=== PATIENT | male | born 1985 | race Caucasian/White ===

== ENCOUNTER 2018-01-13 22:45 | Emergency (ER) | payer MEDICAID, SELFPAY ==
[2018-01-13 22:47] VITALS: BP 153/99; PULSE 84; RESP 16; TEMP 37.4; O2SAT 97; BMI 34.2
--- NOTE | 2018-01-13 23:05 | ED.DCSUM_ITS ---
- ER Visit Summary Date of Service: 01/13/18 Chief Complaint: Numerous symptoms and wants checked out History of Present Illness: The patient is a 32 M with history of panic attacks. He states today he believes he had a panic attack however he has had numerous other symptoms and wanted checked out. He states he felt palpitations in his heart beating when he is lying down. Complain of intermittent pain which localizes over the left nipple and left upper abdomen and complains of a cracking sensation in his left shoulder. He states he became anxious. He has history of panic attacks. He has not seen a counselor. He states normally he can calm himself down. He wanted test done to reassure him of that nothing else was going on. Patient denies fever, chills night sweats. He denies any ocular, visual auditory symptoms. He denies rhinorrhea, earache sore throat. He presently denies any chest pain, palpitations or heart racing. He presently denies any shortness of breath or cough. He denies nausea, vomiting or diarrhea. He denies dysuria, frequency, urgency or hematuria. There is no history of trauma. Physical Examination: Vital signs are remarkable for slight elevation blood pressure 153/99. HEENT exam is marked for strabismus. Heart is regular without murmur, gallop or rub. S1 and S2 are normal. Lungs are clear to auscultation with good movement of air bilaterally. Abdomen soft nontender. Patient is alert and oriented ?3. Motor is 5 over 5. Sensory is intact. DTRs are symmetric with no clonus or Babinski sign. Cranial 2 through 12 are intact. Cerebellar testing is normal. Test Results: None were obtained, nor were any indicated Emergency Department Course and Treatment: She was reassured that his constellation of symptoms consistent with a panic attack. With regards to the shoulder pain most likely represents arthritis. Treatment Plan:. Stress reduction techniques Disposition: Discharged to home Impression: 1. Panic attack 2. Left shoulder pain secondary to degenerative arthritis This note was generated with [employer] dictation software. It may contain incorrect words, spelling, and punctuation that were not noted in review of the chart prior to signing ED Disposition - Plan for ED Patient: Disposition: Home or Assisted Living Chief Complaint: Anxiety Instructions: ED Panic Attack, Osteoarthritis: Coping with Pain Referrals: NOT,DEFINED [Primary Care Provider] - Leo,Jennifer, DO [NON-STAFF] - As Needed
[2018-01-13 23:11] VITALS: PULSE 79; RESP 18; O2SAT 98
[2018-01-13 23:18] VITALS: PULSE 71; RESP 16; O2SAT 97
--- NOTE | 2018-01-13 23:18 | ED.RN ---
DISCHARGE INSTRUCTIONS GIVEN TO AND REVIEWED WITH PATIENT, PATIENT DENIES QUESTIONS OR CONCERNS AND VOICES UNDERSTANDING OF DISCHARGE INSTRUCTIONS. PT AMBULATES OUT OF ROOM WITHOUT DIFFICULTY.
== END 2018-01-13 23:19 | disposition home or self-care (01) ==
LOC: ED 23:10
PROVIDERS: Emergency Provider Emergency Medicine
DX: F41.0 Panic disorder [episodic paroxysmal anxiety] (principal); M25.512 Pain in left shoulder; M19.012 Primary osteoarthritis, left shoulder; H50.9 Unspecified strabismus; E66.9 Obesity, unspecified
CPT/HCPCS: 99283

== ENCOUNTER → 2018-02-15 14:40 | Outpatient (CLI) | payer MEDICAID, SELFPAY ==
[2018-02-15 17:37] LABS: Thyroid Stim Hormone (TSH) 1.76 uIU/mL (0.358-3.74)
== END ==
PROVIDERS: Visit Provider Family Medicine
DX: E03.9 Hypothyroidism, unspecified (principal)
CPT/HCPCS: 36415; 84443

== ENCOUNTER 2018-04-03 11:21 | Emergency (ER) | payer MEDICAID, SELFPAY ==
[2018-04-03 11:22] VITALS: BP 137/74; PULSE 86; RESP 18; TEMP 36.6; O2SAT 99; BMI 29.5
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
== END 2018-04-03 13:08 | disposition home or self-care (01) ==
PROVIDERS: Emergency Provider Emergency Medicine
DX: S16.1XXA Strain of muscle, fascia and tendon at neck level, initial encounter (principal); V59.50XA Passenger in pick-up truck or van injured in collision with unspecified motor vehicles in traffic accident, initial encounter; Y93.89 Activity, other specified; Y92.9 Unspecified place or not applicable; F39 Unspecified mood [affective] disorder; F41.9 Anxiety disorder, unspecified; Z79.899 Other long term (current) drug therapy
CPT/HCPCS: 72040; 99282

== ENCOUNTER 2018-04-17 18:23 | Emergency (ER) | payer MEDICAID, SELFPAY ==
[2018-04-17 18:24] VITALS: BP 140/80; PULSE 97; RESP 24; TEMP 37.1; O2SAT 98; BMI 29.8
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
--- NOTE | 2018-04-17 20:19 | ED.VISSUMM ---
- ER Visit Summary Date of Service: 04/17/18 Chief Complaint: [Constipation] History of Present Illness: The patient is a 32 M [who presents to the emergency department with 1 week of constipation. He states that he has had hard tiny stools for the last 1 week. Mild nausea no abdominal pain sometimes when he closes his eyes he sees stars. He is very anxious and started a new medication Abilify a month ago but stopped taking it because he thought he was getting side effects. He takes gabapentin. He is otherwise healthy. 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.] Physical Examination: [] WN WD NAD Right pupil oval and dilated nonreactive left pupil constricted and nonreactive, left eye has lateral gaze palsy MMM NECK supple and nontender, no masses RRR no murmur rub or gallop, no peripheral edema, symmetric radial pulses CTAB no respiratory distress ABDOMEN is soft and nontender, normal bowel sounds, no distension, no rebound or guarding SKIN is warm and dry no rashes Alert and Oriented x3, CN II-XII in tact, no motor or sensory deficits, gait normal No lymphadenopathy Test Results: [] Emergency Department Course and Treatment: [These were obtained and show no acute process. Eye findings are chronic. Patient is quite anxious and this is been going on since December. I did offer him Vistaril. I think most of his symptoms are likely secondary to the anxiety. I will write him for MiraLAX and Colace. He will follow-up with a primary care physician as well as Jennifer Price] Treatment Plan: [] Disposition: [Discharge] Impression: [1. Anxiety 2. Constipation] This note was generated with [employer] dictation software. It may contain incorrect words, spelling, and punctuation that were not noted in review of the chart prior to signing ED Disposition - Plan for ED Patient: Chief Complaint: Constipation Referrals: Jennifer Bailey DO [Primary Care Provider] -
--- NOTE | 2018-04-17 20:22 | ED.DCSUM_ITS ---
- ER Visit Summary Date of Service: 04/17/18 Chief Complaint: [Constipation] History of Present Illness: The patient is a 32 M [who presents to the emergency department with 1 week of constipation. He states that he has had hard tiny stools for the last 1 week. Mild nausea no abdominal pain sometimes when he closes his eyes he sees stars. He is very anxious and started a new medication Abilify a month ago but stopped taking it because he thought he was getting side effects. He takes gabapentin. He is otherwise healthy. 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.] Physical Examination: [] WN WD NAD Right pupil oval and dilated nonreactive left pupil constricted and nonreactive , left eye has lateral gaze palsy MMM NECK supple and nontender, no masses RRR no murmur rub or gallop, no peripheral edema, symmetric radial pulses CTAB no respiratory distress ABDOMEN is soft and nontender, normal bowel sounds, no distension, no rebound or guarding SKIN is warm and dry no rashes Alert and Oriented x3, CN II-XII in tact, no motor or sensory deficits, gait normal No lymphadenopathy Test Results: [] Emergency Department Course and Treatment: [These were obtained and show no acute process. Eye findings are chronic. Patient is quite anxious and this is been going on since December. I did offer him Vistaril. I think most of his symptoms are likely secondary to the anxiety. I will write him for MiraLAX and Colace. He will follow-up with a primary care physician as well as Jennifer Price] Treatment Plan: [] Disposition: [Discharge] Impression: [1. Anxiety 2. Constipation] This note was generated with [employer] dictation software. It may contain incorrect words, spelling, and punctuation that were not noted in review of the chart prior to signing ED Disposition - Plan for ED Patient: Chief Complaint: Constipation Referrals: Jennifer Bailey DO [Primary Care Provider] -
--- NOTE | 2018-04-17 20:22 | ED.DEP ---
ED Disposition - Plan for ED Patient: Chief Complaint: Constipation Instructions: ED Constipation, Understanding Anxiety Disorders Prescriptions: Polyethylene Glycol 3350 [Miralax] 17 gm PO DAILY #14 packet Referrals: Jennifer Bailey DO [Primary Care Provider] - 3-5 Days
[2018-04-17 20:34] VITALS: BP 131/84; PULSE 80; RESP 18; O2SAT 99
== END 2018-04-17 20:37 | disposition home or self-care (01) ==
PROVIDERS: Emergency Provider Emergency Medicine
DX: F41.9 Anxiety disorder, unspecified (principal); K59.00 Constipation, unspecified; Z91.14 Patient's other noncompliance with medication regimen; Z79.899 Other long term (current) drug therapy; Z72.0 Tobacco use
CPT/HCPCS: 74018; 99282

== ENCOUNTER 2018-05-30 22:52 | Emergency (ER) | payer MEDICAID, SELFPAY ==
[2018-05-30 22:53] VITALS: BP 140/83; PULSE 76; RESP 16; TEMP 36.8; O2SAT 97; BMI 29.0
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
[2018-05-30 23:14] LABS: Absolute Lymphocyte Count 2.23 X10^3/ul (0.83-4.51); Absolute Neutrophil Count 4.4 X10^3/uL (2.0-7.7); Basophil# 0.03 X10^3/uL; Basophil% 0.4 % (0-1); Eosinophil# 0.22 X10^3/uL; Hematocrit 44.3 % (40-54); Hemoglobin 14.7 g/dl (13.0-16.5); Lymphocyte # 2.23 X10^3/ul (4.0); Lymphocyte % 30.6 % (19-41); Mean Corp Hgb Conc 33.2 g/gl (32-36); Mean Corpuscular Hgb 30.6 pg (27.0-32.0); Mean Corpuscular Volume 92.3 fL (80-94); Mean Platelet Vol. 11.7 fl (6.2-12.0); Monocyte# 0.41 X10^3/uL; Monocyte% 5.6 % (0-10); Neutrophil # 4.38 X10^3/uL (2.7-7.7); Neutrophil % 60.3 % (47-70); Platelet Count 177 K/mm3 (150-450); RBC Distribution Width SD 43.4 fl (35.1-43.9); White Blood Count 7.3 K/mm3 (4.4-11.0)
[2018-05-30 23:16] LABS: POSITIVE COUNT NO; POSITIVE DIFFERENTIAL NO; POSITIVE MORPHOLOGY NO
[2018-05-30 23:34] LABS: Anion Gap 7 (5-15); BUN 8 mg/dL (7-18); BUN/Creat Ratio 7.6 RATIO (10-20); Calcium,Total 8.6 mg/dL (8.5-10.1); Chloride 107 mmol/L (98-107); Creatinine, Serum 1.05 mg/dL (0.70-1.30); EST Glomerular Filtration Rate 86 mL/min (>60); Est Glom Filt Rate - Afr Amer 104 mL/min (>60); Glucose 88 mg/dL (74-106); Potassium 3.4 mmol/L (3.5-5.1); Sodium Level 142 mmol/L (136-145)
[2018-05-30 23:49] LABS: Amphetamine Urine VISTA NEGATIVE (<1000 ng/mL); Barbiturate Urine VISTA NEGATIVE (< 200 ng/mL); Benzodiazepine Urine VISTA NEGATIVE (< 200 ng/mL); Cocaine Urine VISTA NEGATIVE (< 300 ng/mL); Ecstacy Urine VISTA NEGATIVE (< 500 ng/mL); Methadone Urine VISTA NEGATIVE (< 300 ng/mL); PCP Urine VISTA NEGATIVE (< 25 ng/mL); THC Urine VISTA NEGATIVE (< 50 ng/mL); Vista UDS pH Range 7
[2018-05-31] VITALS (9 sets, daily range): BP systolic 110; BP diastolic 79; PULSE 65–89; RESP 15–18; O2SAT 99–100
--- NOTE | 2018-05-31 06:42 | NURSING ---
CALLED [facility] FOR TRANSPORT TO [facility]. ETA IS [phone]
== END 2018-05-31 08:29 ==
LOC: ED 23:17
PROVIDERS: Emergency Provider Emergency Medicine
DX: R45.851 Suicidal ideations (principal); F32.9 Major depressive disorder, single episode, unspecified; Z79.899 Other long term (current) drug therapy
CPT/HCPCS: 80048; 80307; 80320; 85025; 99285; G0480

== ENCOUNTER 2018-06-22 01:07 | Emergency (ER) | payer MEDICAID, SELFPAY ==
[2018-06-22 01:08] VITALS: BP 143/95; PULSE 102; RESP 18; TEMP 36.6; O2SAT 98; BMI 29.8
[2018-06-22] MEDS: LORazepam 1 MG Tablet PO (01:46)
--- NOTE | 2018-06-22 02:26 | ED.RN ---
DR ESPINOZA NOTIFIED PT CONCERNED ABOUT HIS NECK PAIN
[2018-06-22] MEDS: Naproxen 250 MG Tablet 500 MG PO (02:30)
--- NOTE | 2018-06-22 02:37 | ED.VISSUMM ---
- ER Visit Summary Date of Service: 06/22/18 Chief Complaint: [anxiety] History of Present Illness: The patient is a 33 M [the presents stating he felt like he was having a panic attack when he laid down to go to sleep. He also describes some neck strain. He denies any fall or injury. No weakness, paresthesias, or radiculopathy. He denies any chest pain or shortness of breath. He overall appears well and in no acute distress. He began to look up on the Internet medications that can interact with the medications that he was just started on Latuda and Lexapro and was concerned. He denies any overdose or ingestion. He denies any suicidal or homicidal thoughts or ideations. He complains only of anxiety. He has no other complaints.] Physical Examination: [General: The patient appears well and in no apparent distress. Patient is resting comfortably on cart. Skin: Warm, dry, no pallor noted. No rash. Head: Normocephalic, atraumatic Neck: Supple, nontender in the midline. Bilateral paraspinal tenderness on examination. Range of motion normal. Eye: PERRLA, EOMI ENT: Moist mucus membranes, pharynx within normal limits. Cardiovascular: Regular Rate and Rhythm, no gallups or rubs Respiratory: Patient is in no distress, no accessory muscle use, lungs are clear to auscultation, no wheezing, rales or rhonchi Musculoskeletal: normal ROM, no deformity, no tenderness, no swelling. 2+ radial and DP pulses symmetric. GI: No tenderness to palpation, no masses appreciated. No rebound, guarding, or rigidity noted. Neurological: A&O, normal strength and sensation. 5/5 bilateral upper extremity strength intact. Psychiatric: Cooperative] Test Results: [none] Emergency Department Course and Treatment: [Patient was given a dose of Ativan here with improvement. He was given Tylenol for neck pain as he states he is concerned the initially ordered Naprosyn will interfere with his medications. His neurological exam remains normal. I do not feel imaging is indicated. He denies any suicidal or homicidal thoughts or ideations. He does not appear to be having any symptoms of psychosis or hallucinations. He was advised to follow closely with his primary provider as well as the physician prescribing these new medications as he is concerned about their side effects and interactions. He was instructed to return with any new or worsening symptoms. Patient understands and is agreeable with this plan of care. Patient was discharged home in stable condition.] Treatment Plan: [See above] Disposition: [Discharged home, stable and improved] Impression: [Anxiety -improved, Acute cervical strain] This note was generated with [employer] software. It may contain incorrect words, spelling, and punctuation that were not noted in review of the chart prior to signing ED Disposition - Plan for ED Patient: Disposition: Home or Assisted Living Chief Complaint: Anxiety Instructions: ED Panic Attack, ED Sprain Strain Neck Referrals: Jennifer Bailey DO [Primary Care Provider] -
--- NOTE | 2018-06-22 02:47 | ED.VISSUMM ---
- ER Visit Summary Date of Service: 06/22/18 Chief Complaint: [] History of Present Illness: The patient is a 33 M [] Physical Examination: [] Test Results: [] Emergency Department Course and Treatment: [] Treatment Plan: [] Disposition: [] Impression: [] This note was generated with [employer] dictation software. It may contain incorrect words, spelling, and punctuation that were not noted in review of the chart prior to signing ED Disposition - Plan for ED Patient: Disposition: Home or Assisted Living Chief Complaint: Anxiety Instructions: ED Sprain Strain Neck, ED Panic Attack Prescriptions: Lorazepam [Ativan] 0.5 mg PO DAILY PRN #1 tab PRN Reason: Anxiety Referrals: Jennifer Bailey DO [Primary Care Provider] -
[2018-06-22 02:50] VITALS: RESP 18
== END 2018-06-22 02:55 | disposition home or self-care (01) ==
PROVIDERS: Emergency Provider Emergency Medicine
DX: F41.9 Anxiety disorder, unspecified (principal); S16.1XXA Strain of muscle, fascia and tendon at neck level, initial encounter; X58.XXXA Exposure to other specified factors, initial encounter; Y93.9 Activity, unspecified; Y92.9 Unspecified place or not applicable; Z79.899 Other long term (current) drug therapy
CPT/HCPCS: 99285

== ENCOUNTER 2018-06-26 15:46 | Emergency (ER) | payer MEDICAID, SELFPAY ==
[2018-06-26 15:48] VITALS: BP 149/102; PULSE 100; RESP 17; TEMP 37.2; O2SAT 99; BMI 29.5
--- NOTE | 2018-06-26 15:58 | ED.VISSUMM ---
- ER Visit Summary Date of Service: 06/26/18 Chief Complaint: Panic attack History of Present Illness: The patient is a 33 M 3 of anxiety, panic attacks and psychiatric illness. He was admitted to the psychiatric medicines at time. Within the last hour he started having a panic attacks. Feels very anxious. He denies any vomiting, diarrhea or fever. No chest pain. Physical Examination: Well appearing male. Vital signs are stable and afebrile. No acute distress. Pulse ox 9 9% on room air no signs of hypoxia. H EENT exam right eye has had lens implant surgery. His left eye is irregular. As is the pupil on the right. Extraocular motions of the left eye are regular. No facial droop. This is all chronic. Neck nontender. Lungs clear to auscultation bilaterally. Heart regular rate and rhythm no murmur rate about 100. Abdomen soft nontender. Normal bowel sounds no peritoneal signs. Moving all 4 extremities. Calves are nontender without edema or cords. 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 Normal dorsi plantarflexion. Neurologically he is awake and alert with no focal motor deficits other than the irregular extraocular movements of his left eye which are chronic. Test Results: None Emergency Department Course and Treatment: Patient has a history of anxiety and panic attacks. This is similar to his prior episodes. He will be treated with p.o. Ativan here reassessed and discharged home. Treatment Plan: Ativan as needed as needed #5 no refill. Follow-up with a counseling center. Disposition: Discharge Impression: Acute anxiety with a history of panic attacks This note was generated with [employer] dictation software. It may contain incorrect words, spelling, and punctuation that were not noted in review of the chart prior to signing ED Disposition - Plan for ED Patient: Chief Complaint: Anxiety Referrals: Jennifer Bailey DO [Primary Care Provider] -
--- NOTE | 2018-06-26 16:01 | ED.DCSUM_ITS ---
- ER Visit Summary Date of Service: 06/26/18 Chief Complaint: Panic attack History of Present Illness: The patient is a 33 M 3 of anxiety, panic attacks and psychiatric illness. He was admitted to the psychiatric medicines at time. Within the last hour he started having a panic attacks. Feels very anxious. He denies any vomiting, diarrhea or fever. No chest pain. Physical Examination: Well appearing male. Vital signs are stable and afebrile. No acute distress. Pulse ox 9 9% on room air no signs of hypoxia. H EENT exam right eye has had lens implant surgery. His left eye is irregular. As is the pupil on the right. Extraocular motions of the left eye are regular. No facial droop. This is all chronic. Neck nontender. Lungs clear to auscultation bilaterally. Heart regular rate and rhythm no murmur rate about 100. Abdomen soft nontender. Normal bowel sounds no peritoneal signs. Moving all 4 extremities. Calves are nontender without edema or cords. Normal metal mixer strength bilaterally. Normal dorsi plantarflexion. Neurologically he is awake and alert with no focal motor deficits other than the irregular extraocular movements of his left eye which are chronic. Test Results: None Emergency Department Course and Treatment: Patient has a history of anxiety and panic attacks. This is similar to his prior episodes. He will be treated with p.o. Ativan here reassessed and discharged home. Treatment Plan: Ativan as needed as needed #5 no refill. Follow-up with a counseling center. Disposition: Discharge Impression: Acute anxiety with a history of panic attacks This note was generated with [employer] dictation software. It may contain incorrect words, spelling, and punctuation that were not noted in review of the chart prior to signing ED Disposition - Plan for ED Patient: Chief Complaint: Anxiety Referrals: Jennifer Bailey DO [Primary Care Provider] -
--- NOTE | 2018-06-26 16:01 | ED.DEP ---
ED Disposition - Plan for ED Patient: Disposition: Home or Assisted Living Chief Complaint: Anxiety Instructions: ED Panic Attack Prescriptions: Lorazepam [Ativan] 1 mg PO DAILY PRN PRN #7 tab PRN Reason: panic attack Referrals: Jennifer Bailey DO [Primary Care Provider] - As Needed Counseling[facility]Center [GROUP OF PHYSICIANS] - As soon as possible Additional Instructions: Return if feeling worse. Follow-up with a counseling center. Ativan as needed for panic attacks or anxiety. Continue your current medications.
[2018-06-26] MEDS: LORazepam 1 MG Tablet PO ×2 (16:05→16:38)
[2018-06-26] MEDS: hydrOXYzine PAM 25 MG Capsule 50 MG PO (17:12)
[2018-06-26 18:08] VITALS: BP 125/89; PULSE 78; RESP 14; O2SAT 98
--- NOTE | 2018-06-26 18:18 | ED.RN ---
suicidal ideation brought to the attention of ed dr. argueta and patient have agreed to course of treatment. pt will follow-up with current astrobiologist and be d/c with home script for Ativan.
== END 2018-06-26 18:19 | disposition home or self-care (01) ==
PROVIDERS: Emergency Provider Emergency Medicine
DX: F41.0 Panic disorder [episodic paroxysmal anxiety] (principal); F41.9 Anxiety disorder, unspecified; Z79.899 Other long term (current) drug therapy
CPT/HCPCS: 99285

== ENCOUNTER 2018-07-04 23:48 | Emergency (ER) | payer MEDICAID, SELFPAY ==
[2018-07-04 23:49] VITALS: BP 153/100; PULSE 83; RESP 16; TEMP 36.6; O2SAT 97; BMI 29.8
--- NOTE | 2018-07-05 00:03 | ED.VISSUMM ---
- ER Visit Summary Date of Service: 07/05/18 Chief Complaint: Anxiety History of Present Illness: The patient is a 33 M increased anxiety prior to arrival. States was getting ready for bed having concerns of having a panic attack when it happened. Complains of dyspnea. No chest pains. No nausea or vomiting. States he took 1.5 tabs of Ativan and symptoms not improved. No cough. She is normally medications would help with symptoms. However this has not. No lip tingling or finger tingling. He is followed by counseling center. He was seen for same similar 8 days ago. He was told to follow-up with counseling center however has not. States currently feels I am going crazy.. Discussion about suicidal ideations, he states now he has thoughts. No specific plans. No homicidal ideations. Denies tobacco, alcohol, or illicit drug use. States he would like to see a counselor. Also complaint increased thirst and urine frequency. No history of diabetes. No dysuria or hematuria. Last meal was 2 hours ago. Physical Examination: General: Alert and oriented ?3, no acute distress HEENT: Normocephalic, atraumatic. Moist mucosa membranes Neck: supple, nontender. Cardiovascular: Regular rate and rhythm, no murmurs Respiratory: Normal breath sounds, symmetric, no distress Abdomen: Soft, nontender, nondistended Extremities: Nontender, no edema, pulses intact ?4 Neuro: no focal neurological deficits. Psych: Positive suicidal ideation. No homicidal ideation. Test Results: EKG sinus rate of [address] changes. Isolated T-wave inversion in aVL. Two-view chest x-ray negative. CBC chemistry liver enzymes normal. Urine no leukocytes however no other findings. Tox screen negative. Alcohol negative. Emergency Department Course and Treatment: Patient complains of dyspnea, however pulse ox normal, respiratory rate is normal. Lung sounds are normal. EKG chest x-ray normal. During discussed with anxiety, he did state he had suicidal thoughts with no plan with me. He went see a counselor. Laboratory workup obtained with toxin alcohol negative. Patient medically cleared. He was evaluated by crisis, states increasing suicidal thoughts and the plan of hanging. Patient had a pink slip filled out by crisis. He is excepted to [facility] in [place]. Treatment Plan: [] Disposition: Transfer to [facility] Impression: 1. Suicidal ideation with plan This note was generated with [employer] dictation software. It may contain incorrect words, spelling, and punctuation that were not noted in review of the chart prior to signing ED Disposition - Plan for ED Patient: Disposition: Psychiatric Hospital or Unit Chief Complaint: Anxiety Diagnosis: Suicidal ideation Referrals: Jennifer Bailey DO [Family Provider] -
[2018-07-05 00:26] LABS: Absolute Lymphocyte Count 1.81 X10^3/ul (0.83-4.51); Absolute Neutrophil Count 5.4 X10^3/uL (2.0-7.7); Basophil# 0.04 X10^3/uL; Basophil% 0.5 % (0-1); Eosinophil# 0.16 X10^3/uL; Hematocrit 42.9 % (40-54); Hemoglobin 14.8 g/dl (13.0-16.5); Lymphocyte # 1.81 X10^3/ul (4.0); Lymphocyte % 22.7 % (19-41); Mean Corp Hgb Conc 34.5 g/gl (32-36); Mean Corpuscular Hgb 31.4 pg (27.0-32.0); Mean Corpuscular Volume 91.1 fL (80-94); Mean Platelet Vol. 10.9 fl (6.2-12.0); Monocyte# 0.51 X10^3/uL; Monocyte% 6.4 % (0-10); Neutrophil # 5.43 X10^3/uL (2.7-7.7); Neutrophil % 68.1 % (47-70); POSITIVE COUNT NO; POSITIVE DIFFERENTIAL NO; POSITIVE MORPHOLOGY NO; Platelet Count 202 K/mm3 (150-450); RBC Distribution Width CV 12.9 % (11.6-14.6); RBC Distribution Width SD 42.6 fl (35.1-43.9); Red Blood Count 4.71 M/mm3 (4.6-6.2)
[2018-07-05 00:33] LABS: Bacteria 0 SEEN /hpf (None Seen); Mucous, Urine 0 SEEN /hpf (<or=2+); Red Blood Cells-Urine 0 SEEN /hpf (0-5); Squamous Epithelial Cells - UA 0 SEEN /hpf (0-5); White Blood Cells 0 SEEN /hpf (0-5)
[2018-07-05 00:39] LABS: Color, Urine Yellow (Yellow); Glucose, Dipstick Normal (Normal); Ketone-Dipstick Negative (Negative); Leukocyte Esterase-Dipstick 25 /ul (Negative); Nitrite-Dipstick Negative (Negative); Occult Blood-Urine Negative /ul (Negative); Protein-Dipstick Negative (Negative); Specific Gravity, Urine 1.015 (1.002-1.030); Urine Bilirubin Dipstick Negative (Negative); Urine Clarity Clear (Clear); Urine Urobilinogen Normal (Normal); Urine pH 6.5 (5.0 - 8.0)
[2018-07-05 00:41] LABS: ALB/GLOB Ratio 1.1 RATIO (0.9-2.4); AST(SGOT) 11 U/L (15-37); Alanine Aminotransfer ALT/SGPT 23 U/L (16-61); Albumin, Serum 3.9 g/dL (3.2-5.0); Alkaline Phosphatase 79 U/L (45-117); Anion Gap 9 (5-15); BUN 7 mg/dL (7-18); BUN/Creat Ratio 7.2 RATIO (10-20); Calcium,Total 8.7 mg/dL (8.5-10.1); Chloride 104 mmol/L (98-107); Creatinine, Serum 0.98 mg/dL (0.70-1.30); EST Glomerular Filtration Rate 94 mL/min (>60); Est Glom Filt Rate - Afr Amer 113 mL/min (>60); Estimated Creatinine Clearance 116.58 ml/min; Globulin 3.4 g/dL (2.2-4.2); Glucose 104 mg/dL (74-106); Potassium 3.4 mmol/L (3.5-5.1); Protein, Total 7.3 g/dL (6.4-8.2); Sodium Level 139 mmol/L (136-145)
[2018-07-05 00:47] LABS: Amphetamine Urine VISTA NEGATIVE (<1000 ng/mL); Barbiturate Urine VISTA NEGATIVE (< 200 ng/mL); Benzodiazepine Urine VISTA NEGATIVE (< 200 ng/mL); Cocaine Urine VISTA NEGATIVE (< 300 ng/mL); Ecstacy Urine VISTA NEGATIVE (< 500 ng/mL); Methadone Urine VISTA NEGATIVE (< 300 ng/mL); PCP Urine VISTA NEGATIVE (< 25 ng/mL); THC Urine VISTA NEGATIVE (< 50 ng/mL); Vista UDS pH Range 6
[2018-07-05] MEDS: hydrOXYzine PAM 25 MG Capsule 50 MG PO (02:08)
[2018-07-05 02:17] VITALS: RESP 16
[2018-07-05 03:53] VITALS: BP 121/74; PULSE 66; RESP 16; O2SAT 97
--- NOTE | 2018-07-05 04:01 | NURSING ---
[facility] HAS ACCEPTED [id number] REPORT
--- NOTE | 2018-07-05 04:06 | NURSING ---
CHUN TY CALLED AT 0404 AND WAS TOLD TO CALL BACK AFTER 7AM JAIME GARZA CALLED AT 0406 AND WAS ALSO TOLD TO CALL BACK AFTER 7AM
[2018-07-05 04:23] VITALS: BP 121/74; PULSE 66; RESP 16; TEMP 36.6; O2SAT 97
[2018-07-05 07:20] VITALS: BP 110/84; PULSE 57; RESP 16; O2SAT 100
[2018-07-05 09:00] VITALS: PULSE 60; RESP 16; O2SAT 100
== END 2018-07-05 09:30 ==
PROVIDERS: Emergency Provider Emergency Medicine
DX: R45.851 Suicidal ideations (principal); R35.0 Frequency of micturition; F41.9 Anxiety disorder, unspecified; F32.9 Major depressive disorder, single episode, unspecified; Z79.899 Other long term (current) drug therapy; M62.830 Muscle spasm of back
CPT/HCPCS: 71046; 80053; 80307; 80320; 81001; 85025; 93005; 97110; 99285; G0480

== ENCOUNTER 2018-07-24 15:00 | Outpatient (RCR) | payer MEDICAID, SELFPAY ==
--- NOTE | 2018-05-29 17:35 | HP.PTEVAL_ITS ---
Patient's Visit Information TATUM MATOS is a 33 year old M referred to Physical Therapy by ALEXIS Burgess with a diagnosis of MUSCLE SPASMS OF BACK. Date of Evaluation: 05/29/18 Physical Therapist: Kun Herbert PT, - Visit Plan Frequency: 2x /Week Duration: 4 Weeks Plan: POSTURAL EX/DLS PROGRAM,FLEXABLITY LE ,MODALITIES PRN - Subjective Subjective: This 33 y/o male presents to physical therapy with muscle spasms of back.Patient has had lumbar pain for about one year. Location symmtrical lumbar burning sensation,ache. Symptoms worse with sitting, lifting,walking intermmitant. Symptoms better with rest. Patient takes gabepetin. Denies parathesia/tingling. Coughing/sneezing -. Bowel/bladder good. Patient sleeps okay at night. SOCIAL: single. VOCATION: disablity - Pain Bilateral Back Pain Intensity (Out of 10): 6 Pain Intensity Range: 10 - Objective POSTURE: rounde shoulders head foward. GAIT: normal [place] reiprocal pattern. NEURO: burning back ,reflexes L3-4,L4-5,L5-S1 2/3. PALAPTION: tender paraspinals L-S. MMT: quads/hams 4/5,hip flexion 4-/5,ankle 4/5. FLEXABLITY: hams min tight. LUMBAR ROM: flexion WFL ,extension min loss ,side glides min loss - Special Tests L/S Slump test left side: Negative L/S Slump test right side: Negative L/S Left Straight Leg Raise: Negative L/S Right Straight Leg Raise: Negative Lumbar Standing: Flexion - Mechanical Response: No effect Lumbar Standing: Flexion - Symptoms During Testing: No effect Lumbar Standing: Flexion - Symptoms After Testing: No effect Lumbar Standing: Extension - Mechanical Response: No effect Lumbar Standing: Extension - Symptoms During Testing: Increases Lumbar Standing: Extension - Symptoms After Testing: No effect - Goals Goal 1:: Independant with HEP Goal Time Frame: 4-6 Weeks Goal 2:: Independant with posture sitting to manage back pain 70% Goal Time Frame: 4-6 Weeks Goal 3:: Decrease pain by 50% vor greater lumbar to improve function. Goal Time Frame: 4-6 Weeks Goal 4:: Patient be d/c to prophalxis Goal Time Frame: 4-6 Weeks Goal 5:: Patient be able to perform ADL'S and housework tasks and sitting with min limitations. Goal Time Frame: 4-6 Weeks - Rehabilitation Potential Physical Therapy Diagnosis: This patient has back spasm due to postural deficits and weakness of postural muscles and core ,thus benifit from skilled PT Rehabilitation Potential: Fair - Anticipated Interventions Patient/Client Instruction: Educate patient on: Condition, Plan of Care For the Purpose of:: To decrease pain, To improve muscle performance and motor function, To improve ability to perform ADL's, To increase tolerance to activity /condition/position, To improve ability of physical actions for home/community/ work/leisure, To decrease soft tissue restriction, To improve health and function, To improve ability to perform tasks related to life management Therapeutic Exercise to Include: Strength training, Body mechanics, Postural training, Flexibilty training, Dynamic Lumbar Stabilization For the Purpose of:: To decrease pain, To increase ROM, To improve muscle performance and motor function, To improve ability to perform ADL's, To increase tolerance to activity/condition/position, To improve ability of physical actions for home/community/work/leisure, To improve health of tissue, To decrease soft tissue restriction, To increase flexibility/ROM, To reduce risk of recurrence, To improve ability to perform tasks related to life management TENS: Yes IF ES: Yes Cryotherapy (ice pack, ice massage): Yes Thermo therapy (hot pack): Yes Ultrasound (thermal/non thermal): Yes For the Purpose of:: To decrease pain, To increase ROM, To improve health of tissue, To decrease soft tissue restriction Thank you for the opportunity to evaluate your patient. For Medicare and Medicare HMO plans, please review the plan of care and approve it. It will need to be FAXED BACK to us at [phone] for Medicare purposes. Please let me know if there are questions or concerns regarding this plan of care. Physician Signature: Date:
--- NOTE | 2018-11-27 10:22 | HP.PT.NRP ---
HP - Discharge Summary (1) - Patient Information TATUM MATOS was seen in my office for initial evaluation on 05/29/18. The following Plan of Care was established for this patient: Initial Frequency: 2x /Week Initial Duration: 4 Weeks - Anticipated Interventions Patient/Client Instruction: Educate patient on: Condition, Plan of Care For the Purpose of:: To decrease pain, To improve muscle performance and motor function, To improve ability to perform ADL's, To increase tolerance to activity/condition/position, To improve ability of physical actions for home/community/work/leisure, To decrease soft tissue restriction, To improve health and function, To improve ability to perform tasks related to life management Therapeutic Exercise to Include: Strength training, Body mechanics, Postural training, Flexibilty training, Dynamic Lumbar Stabilization For the Purpose of:: To decrease pain, To increase ROM, To improve muscle performance and motor function, To improve ability to perform ADL's, To increase tolerance to activity/condition/position, To improve ability of physical actions for home/community/work/leisure, To improve health of tissue, To decrease soft tissue restriction, To increase flexibility/ROM, To reduce risk of recurrence, To improve ability to perform tasks related to life management TENS: Yes IF ES: Yes Cryotherapy (ice pack, ice massage): Yes Thermo therapy (hot pack): Yes Ultrasound (thermal/non thermal): Yes For the Purpose of:: To decrease pain, To increase ROM, To improve health of tissue, To decrease soft tissue restriction This patient was last seen in our office 05/29/19. Pertinent comments regarding their Physical therapy will appear below: Patient seen for PT for lumbar pain . Patient treatment focused on DLS ,postural ex's,strengthening.Patient did well with progression and working out on own,thus is d/c At this point I will be discontinuing this patient from physical therapy. I would be happy to see this patient again in the future if found appropriate by the physician. Thank you! Kun Herbert, PT, Cert MDT, OCS
== END 2018-07-24 19:00 | disposition home or self-care (01) ==
LOC: PT 15:00
PROVIDERS: Visit Provider Physician Assistant Surgical
DX: M62.830 Muscle spasm of back (principal)
CPT/HCPCS: 97110; 97162

== ENCOUNTER 2018-08-11 18:06 | Emergency (ER) | payer MEDICAID, SELFPAY ==
[2018-08-11 18:07] VITALS: BP 124/92; PULSE 103; RESP 20; TEMP 36.7; O2SAT 97; BMI 30.7
--- NOTE | 2018-08-11 18:30 | ED.DCSUM_ITS ---
- ER Visit Summary Date of Service: 08/11/18 Chief Complaint: Anxiety History of Present Illness: The patient is a 33 M who presents with anxiety that became worse today. Patient states that has been getting gradually worse over the past 2 days. Patient states she normally takes lorazepam for his anxiety. Patient states he has not taken his lorazepam for the past 2 days. Patient states he took it daily for 3 days prior to that. Patient is concerned about withdrawal from the lorazepam. Patient is also on Vistaril for his anxiety. Patient states he took 2 doses of Vistaril today. Patient denies any chest pain or shortness of breath. Patient admits to a mild headache. Patient admits to fleeting suicidal thoughts but denies any suicidal plan. Patient denies any visual or auditory hallucinations. Physical Examination: Vital signs are stable. Patient is afebrile. Patient is in no acute distress. Cranial nerves II through XII are intact. There are no focal motor or sensory deficits noted. Oral mucosa is pink and moist. Neck is supple. Trachea is midline. There is no JVD or lymphadenopathy noted. Heart was regular rate and rhythm. Lungs are clear and equal bilaterally. Abdomen is soft. Bowel sounds are normal. There is no tenderness. The remaining physical exam is within normal limits. Test Results: CBC, basic metabolic profile, urinalysis, and serum alcohol level were obtained were all within normal limits. Emergency Department Course and Treatment: Patient felt better on reevaluation. Patient was instructed to follow-up with the counseling center in 2-3 days. Patient was instructed to continue his medications as previously prescribed. Patient understands and is agreeable with the plan. All questions were answered. Disposition: Discharged home Impression: Anxiety This note was generated with [employer] dictation software. It may contain incorrect words, spelling, and punctuation that were not noted in review of the chart prior to signing ED Disposition - Plan for ED Patient: Disposition: Home or Assisted Living Chief Complaint: Anxiety Diagnosis: Acute anxiety Instructions: ED Panic Attack Referrals: Care Physician,No Primary [NON-STAFF] -
[2018-08-11 18:39] LABS: Absolute Lymphocyte Count 1.34 X10^3/ul (0.83-4.51); Absolute Neutrophil Count 7.4 X10^3/uL (2.0-7.7); Basophil# 0.04 X10^3/uL; Basophil% 0.4 % (0-1); Eosinophil# 0.26 X10^3/uL; Eosinophils% 2.7 % (0-5); Hematocrit 44.8 % (40-54); Lymphocyte # 1.34 X10^3/ul (4.0); Lymphocyte % 13.9 % (19-41); Mean Corp Hgb Conc 33.5 g/gl (32-36); Mean Corpuscular Hgb 30.5 pg (27.0-32.0); Mean Corpuscular Volume 91.2 fL (80-94); Mean Platelet Vol. 10.5 fl (6.2-12.0); Monocyte# 0.58 X10^3/uL; Neutrophil # 7.38 X10^3/uL (2.7-7.7); Neutrophil % 76.9 % (47-70); POSITIVE COUNT NO; POSITIVE DIFFERENTIAL NO; POSITIVE MORPHOLOGY NO; Platelet Count 181 K/mm3 (150-450); RBC Distribution Width CV 12.8 % (11.6-14.6); RBC Distribution Width SD 42.8 fl (35.1-43.9); Red Blood Count 4.91 M/mm3 (4.6-6.2); White Blood Count 9.6 K/mm3 (4.4-11.0)
[2018-08-11 18:49] LABS: Mucous, Urine 0 SEEN /hpf (<or=2+); White Blood Cells 0 SEEN /hpf (0-5)
[2018-08-11 18:50] LABS: Anion Gap 5 (5-15); BUN 9 mg/dL (7-18); BUN/Creat Ratio 9.2 RATIO (10-20); Calcium,Total 8.5 mg/dL (8.5-10.1); Chloride 104 mmol/L (98-107); Creatinine, Serum 0.98 mg/dL (0.70-1.30); EST Glomerular Filtration Rate 93 mL/min (>60); Est Glom Filt Rate - Afr Amer 112 mL/min (>60); Estimated Creatinine Clearance 116.58 ml/min; Glucose 90 mg/dL (74-106); Potassium 4.1 mmol/L (3.5-5.1); Sodium Level 138 mmol/L (136-145)
[2018-08-11 18:52] LABS: Color, Urine Yellow (Yellow); Glucose, Dipstick Normal (Normal); Ketone-Dipstick Negative (Negative); Leukocyte Esterase-Dipstick Negative /ul (Negative); Nitrite-Dipstick Negative (Negative); Occult Blood-Urine Negative /ul (Negative); Protein-Dipstick Negative (Negative); Urine Bilirubin Dipstick Negative (Negative); Urine Clarity Clear (Clear); Urine Urobilinogen Normal (Normal)
[2018-08-11 19:02] LABS: Bacteria 1+ /hpf (None Seen); Red Blood Cells-Urine 0-5 SEEN /hpf (0-5); Squamous Epithelial Cells - UA 0-5 SEEN /hpf (0-5)
[2018-08-11 20:31] VITALS: PULSE 78; RESP 14; O2SAT 98
== END 2018-08-11 20:33 | disposition home or self-care (01) ==
PROVIDERS: Emergency Provider Emergency Medicine; Family Provider Internal Medicine; PCP Internal Medicine
DX: F41.9 Anxiety disorder, unspecified (principal); R51 Headache; R45.851 Suicidal ideations; Z79.899 Other long term (current) drug therapy; Z72.0 Tobacco use
CPT/HCPCS: 80048; 80320; 81001; 85025; 99282; G0480

== ENCOUNTER 2018-08-17 22:50 | Emergency (ER) | payer MEDICAID, SELFPAY ==
[2018-08-17 22:51] VITALS: BP 141/103; PULSE 83; RESP 19; TEMP 37.9; O2SAT 99; BMI 31.8
--- NOTE | 2018-08-17 22:55 | EKG12_ITS ---
Test Reason : [facility] Blood Pressure : / mmHG Vent. Rate : 083 BPM Atrial Rate : 083 BPM P-R Int : 144 ms QRS Dur : 074 ms QT Int : 356 ms P-R-T Axes : 067 039 063 degrees QTc Int : 418 ms Normal sinus rhythm with sinus arrhythmia Normal ECG Confirmed by JASSON RODAS, LACHELLE ([id number]), deputy editor in chief MADY VALENZUELA ([id number]) on 08/19/2018 3:51:36 PM Referred By: CLARITZA Confirmed By:LACHELLE SPAULDING MD
--- NOTE | 2018-08-17 23:03 | ED.DCSUM_ITS ---
- ER Visit Summary Date of Service: 08/17/18 Chief Complaint: [] Palpitations History of Present Illness: The patient is a 33 M stated he developed some palpitations an hour ago at home at rest. He felt a few extra beats. He was not sure if he was having an anxiety attack or actually had an abnormal rhythm. He called the paramedics. Denies any other symptoms. He is on Ativan, Vistaril, Zoloft. He was seen a week ago for anxiety with normal lab work. He stated he felt 3 extra beats. It has stopped Physical Examination: [] Vital signs reviewed General: Well-nourished well-developed Head: Normocephalic atraumatic Eyes: Pupils equal round and reactive to light extraocular movements intact ENT: TMs clear no hemotympanum no trauma Neck: Nontender full range of motion Cardiovascular: Regular rate rhythm no murmurs normal S1-S2 Respiratory: No distress clear to auscultation bilaterally chest nontender Abdomen: Soft nontender nondistended normal bowel sounds no masses Back: Nontender no CVA tenderness Extremities: Nontender active range of motion ?4 extremities no trauma Skin: Normal color no trauma Neuro alert oriented cranial nerves II through XII intact normal strength sensation reflexes Test Results: [] Emergency Department Course and Treatment: [] She is resting comfortably. He denies any signs or symptoms of illness or sickness or infection. His temperatures just on the high side of normal. I do not feel he has sepsis or infection. He had a EKG that showed sinus arrhythmia. Rate of 83. No PVCs. No ischemia. He was watched on the monitor. He had no abnormal rhythm. He will be discharged to follow-up. He likely had a few PVCs Treatment Plan: [] Disposition: [] Impression: [] Palpitations This note was generated with [employer] dictation software. It may contain incorrect words, spelling, and punctuation that were not noted in review of the chart prior to signing ED Disposition - Plan for ED Patient: Chief Complaint: Palpitations Referrals: Jm Ty MD [Primary Care Provider] -
--- NOTE | 2018-08-17 23:03 | ED.DEP ---
ED Disposition - Plan for ED Patient: Disposition: Home or Assisted Living Chief Complaint: Palpitations Instructions: ED Palpitations Referrals: Jm Ty MD [Primary Care Provider] -
[2018-08-17 23:43] VITALS: BP 134/83; PULSE 86; RESP 17; TEMP 37.5; O2SAT 97
== END 2018-08-17 23:44 | disposition home or self-care (01) ==
LOC: ED 23:08
PROVIDERS: Emergency Provider Emergency Medicine; Family Provider Internal Medicine; PCP Internal Medicine
DX: R00.2 Palpitations (principal); F41.9 Anxiety disorder, unspecified; Z79.899 Other long term (current) drug therapy; Z72.0 Tobacco use
CPT/HCPCS: 93005; 99284

== ENCOUNTER 2018-09-07 23:02 | Emergency (ER) | payer MEDICAID, SELFPAY ==
[2018-09-07 23:03] VITALS: BP 134/84; PULSE 87; RESP 16; TEMP 37.1; O2SAT 98; BMI 31.1
--- NOTE | 2018-09-07 23:04 | CT_ITS ---
HISTORY: 2ANXIETY AND CONFUSION TECHNIQUE: Multiple axial images were obtained of the brain without intravenous contrast. A radiation dose optimization technique was used for this scan. IV Contrast dosage and agent: None. COMPARISON: None FINDINGS: The ventricles are normal in size. Sigala-white matter differentiation appears normal. No intracranial mass, hemorrhage, or acute disease. Posterior fossa structures show no abnormality. No suspicious extra-axial fluid collection. Bilateral ethmoid, frontal, and left maxillary sinusitis. CT/Brain/Head without Contrast IMPRESSION: 1. Normal CT brain without contrast. 2. Paranasal sinusitis. Individualized dose optimization techniques were used for this CT. at 0045 Reported and signed by: Cody Osei MD Electronically Signed: Cody Osei, at 0:43 EDT Tel , Service support ,
--- NOTE | 2018-09-07 23:07 | ED.VISSUMM ---
- ER Visit Summary Date of Service: 09/07/18 Chief Complaint: Anxiety History of Present Illness: The patient is a 33 M presents to the emergency department with an acute anxiety reaction. The patient has had multiple visits for the same. He states that he became very lightheaded and had a headache. He states he was concerned he was having a stroke. He denies any weakness, numbness, or paresthesias. Had no trouble with his speech or his vision. He states he just felt very anxious and thought something else was going on. He states he was confused. He states this felt worse than his normal anxiety. He denies any fevers or chills. He denies any visual change. He denies any recent trauma. He did take a 1 mg Ativan with some improvement. Physical Examination: Vital signs reviewed General: Well-nourished, well-developed Head: Normocephalic, atraumatic Eyes: Pupils equal and reactive, extraocular muscles intact Neck, supple, no lymphadenopathy Heart: Regular rate and rhythm Respiratory: No distress, clear bilaterally Abdomen: Soft, nontender, nondistended, no peritoneal signs Back: Nontender Extremities: Nontender, no edema, no cords Skin: Normal color no rash Neuro: Alert and oriented, no focal or lateralizing deficits Test Results: [] Emergency Department Course and Treatment: The patient presents with what seems to be an acute anxiety reaction. However, he was having confusion and change in mental status. On arrival, he is basically at baseline. The patient underwent head CT given his multiple recurrent visits for similar symptoms. This was unremarkable. There is no tumor mass or other dangerous process. He is not meningitic. Is not encephalopathic. He was given oral Ativan and observed for 2 hours. He had marked improvement of his symptoms. At this time, I do feel that this is more secondary to his underlying anxiety. I do feel that he is safe for outpatient therapy. He is not suicidal or homicidal. He has no hallucinations. He will be discharged home. Treatment Plan: [] Disposition: Discharge Impression: Acute anxiety reaction This note was generated with [employer] dictation software. It may contain incorrect words, spelling, and punctuation that were not noted in review of the chart prior to signing ED Disposition - Plan for ED Patient: Chief Complaint: Anxiety Instructions: ED Panic Attack Referrals: Jm Ty MD [Primary Care Provider] -
[2018-09-07] MEDS: LORazepam 1 MG Tablet PO (23:47)
[2018-09-08 01:09] VITALS: BP 129/78; PULSE 67; RESP 18; O2SAT 99
== END 2018-09-08 01:10 | disposition home or self-care (01) ==
LOC: ED 23:46
PROVIDERS: Emergency Provider Emergency Medicine; Family Provider Internal Medicine; PCP Internal Medicine
DX: F41.1 Generalized anxiety disorder (principal); R51 Headache; Z79.899 Other long term (current) drug therapy; Z72.0 Tobacco use
CPT/HCPCS: 70450; 99284

== ENCOUNTER 2018-09-13 02:58 | Emergency (ER) | payer MEDICAID, SELFPAY ==
[2018-09-13] VITALS (17 sets, daily range): BP systolic 120–140; BP diastolic 68–92; PULSE 61–82; RESP 13–18; TEMP 37.3; O2SAT 97–100; BMI 32.1
--- NOTE | 2018-09-13 03:14 | ED.VISSUMM ---
- ER Visit Summary Date of Service: 09/13/18 Chief Complaint: Depression anxiety and panic History of Present Illness: The patient is a 33 M who presents with depression and thoughts of hurting himself. He says this is stemming from the fact that his doctor is not giving him any more Ativan. He has a history of panic disorder and says Ativan is the only thing that helps. He does not have a plan but he tells me he is thinking quite dark thoughts and does not feel safe by himself. Physical Examination: On exam he is quite pleasant, quite reasonable. Heart is regular lungs are clear abdomen is soft and nontender. He has no rash she has a normal physical exam. Emergency Department Course and Treatment: Patient will be medically cleared. I will get crisis to talk to him after that. The plan will be to transfer him to psychiatric facility Impression: Depression with suicidal ideation This note was generated with [employer] dictation software. It may contain incorrect words, spelling, and punctuation that were not noted in review of the chart prior to signing ED Disposition - Plan for ED Patient: Chief Complaint: Suicidal Referrals: Jm Ty MD [Primary Care Provider] -
[2018-09-13 03:51] LABS: Absolute Neutrophil Count 4.1 X10^3/uL (2.0-7.7); Basophil# 0.03 X10^3/uL; Basophil% 0.5 % (0-1); Eosinophil# 0.18 X10^3/uL; Eosinophils% 2.8 % (0-5); Hematocrit 43.9 % (40-54); Hemoglobin 15.1 g/dl (13.0-16.5); Lymphocyte % 29.1 % (19-41); Mean Corp Hgb Conc 34.4 g/gl (32-36); Mean Corpuscular Hgb 30.9 pg (27.0-32.0); Mean Platelet Vol. 10.3 fl (6.2-12.0); Monocyte# 0.33 X10^3/uL; Neutrophil # 4.09 X10^3/uL (2.7-7.7); Neutrophil % 62.4 % (47-70); Platelet Count 201 K/mm3 (150-450); RBC Distribution Width CV 12.4 % (11.6-14.6); RBC Distribution Width SD 40.9 fl (35.1-43.9); Red Blood Count 4.88 M/mm3 (4.6-6.2); White Blood Count 6.5 K/mm3 (4.4-11.0)
[2018-09-13 03:52] LABS: POSITIVE COUNT NO; POSITIVE DIFFERENTIAL NO; POSITIVE MORPHOLOGY NO
[2018-09-13 04:00] LABS: Amphetamine Urine VISTA NEGATIVE (<1000 ng/mL); Barbiturate Urine VISTA NEGATIVE (< 200 ng/mL); Benzodiazepine Urine VISTA NEGATIVE (< 200 ng/mL); Cocaine Urine VISTA NEGATIVE (< 300 ng/mL); Ecstacy Urine VISTA NEGATIVE (< 500 ng/mL); Methadone Urine VISTA NEGATIVE (< 300 ng/mL); PCP Urine VISTA NEGATIVE (< 25 ng/mL); THC Urine VISTA NEGATIVE (< 50 ng/mL); Vista UDS pH Range 6
[2018-09-13 04:02] LABS: Anion Gap 7 (5-15); BUN 6 mg/dL (7-18); Calcium,Total 8.4 mg/dL (8.5-10.1); Chloride 104 mmol/L (98-107); Creatinine, Serum 0.99 mg/dL (0.70-1.30); EST Glomerular Filtration Rate 92 mL/min (>60); Est Glom Filt Rate - Afr Amer 111 mL/min (>60); Glucose 87 mg/dL (74-106); Potassium 3.5 mmol/L (3.5-5.1); Sodium Level 139 mmol/L (136-145)
[2018-09-13 04:08] LABS: Alcohol, Blood (Medical)-Serum < 3.0 mg/dL
[2018-09-13] MEDS: hydrOXYzine PAM 25 MG Capsule 50 MG PO ×3 (04:32→21:20)
[2018-09-13] MEDS: Sertraline 100 MG Tablet PO (12:07)
--- NOTE | 2018-09-13 12:34 | ED.RN ---
[facility] CALLED AND THEY ARE WORKING ON PLACEMENT FOR THE PATIENT. BEDS ARE TIGHT EVERYWHERE
--- NOTE | 2018-09-13 19:07 | EKG12_ITS ---
Test Reason : [facility] [place] Blood Pressure : / mmHG Vent. Rate : 080 BPM Atrial Rate : 080 BPM P-R Int : 140 ms QRS Dur : 080 ms QT Int : 364 ms P-R-T Axes : 076 059 074 degrees QTc Int : 419 ms Normal sinus rhythm with sinus arrhythmia Normal ECG Confirmed by JASSON RODAS, LACHELLE ([id number]), field map editor MADY VALENZUELA ([id number]) on 09/17/2018 3:53:42 PM Referred By: DR NORWOOD Confirmed By:LACHELLE SPAULDING MD
[2018-09-13 19:44] LABS: AST(SGOT) 15 U/L (15-37); Alanine Aminotransfer ALT/SGPT 25 U/L (16-61); Albumin, Serum 3.9 g/dL (3.2-5.0); Alkaline Phosphatase 61 U/L (45-117); Bilirubin, Direct 0.15 mg/dL (0.00-0.30); Globulin 3.3 g/dL (2.2-4.2); Protein, Total 7.2 g/dL (6.4-8.2)
--- NOTE | 2018-09-13 20:53 | ED.RN ---
UPDATE FROM [facility], INFORMATION FAXED TO [facility]
[2018-09-13] MEDS: Acetaminophen 500 MG Tablet 1000 MG PO (21:19)
--- NOTE | 2018-09-13 21:22 | ED.RN ---
scanner not working on portable computer workstation. Work ticket placed.
[2018-09-14] VITALS (8 sets, daily range): BP systolic 114–116; BP diastolic 77–80; PULSE 73–77; RESP 16–18; TEMP 36.6; O2SAT 96–98
--- NOTE | 2018-09-14 00:38 | ED.RN ---
[facility] REQUESTED THE STAFF ASK THE PT IF HE STILL WANTS TO BE ADMITTED BECAUSE THE PHYSICIAN AT [facility] WILL NOT INCREASE HIS DOSE. THIS NURSE SPOKE TO THE PT ABOUT THE ATIVAN. THE PT STATES THAT HE WAS TOLD HE WILL NO LONGER BE RECEIVING ATIVAN. PT CONCERNED ABOUT SUICIDAL THOUGHTS D/T NOT RECEIVING ATIVAN
--- NOTE | 2018-09-14 01:30 | NURSING ---
CALLED [facility] AND WILL BE PICKING UP PATIENT AROUND 8AM FOR TRANSPORT SINCE PATIENT CANNOT ARRIVE AT FACILITY UNTIL AFTER 830AM
== END 2018-09-14 08:36 ==
LOC: ED 03:47
PROVIDERS: Emergency Medicine; Emergency Provider Emergency Medicine; Family Provider Internal Medicine; PCP Internal Medicine
DX: F32.9 Major depressive disorder, single episode, unspecified (principal); R45.851 Suicidal ideations; F41.0 Panic disorder [episodic paroxysmal anxiety]; Z79.899 Other long term (current) drug therapy
CPT/HCPCS: 80048; 80076; 80307; 80320; 85025; 93005; 99285; G0480

== ENCOUNTER 2018-09-24 21:50 | Emergency (ER) | payer MEDICAID, SELFPAY ==
[2018-09-24 21:51] VITALS: BP 141/88; PULSE 103; RESP 16; TEMP 37; O2SAT 98; BMI 31.4
[2018-09-25] MEDS: LORazepam 1 MG Tablet PO (00:07)
[2018-09-25 00:09] VITALS: BP 144/93; PULSE 92; RESP 17; O2SAT 96
--- NOTE | 2018-09-25 00:26 | ED.VISSUMM ---
- ER Visit Summary Date of Service: 09/25/18 Chief Complaint: Sore throat and anxiety History of Present Illness: The patient is a 33 M who states that today he has had multiple panic attacks. He states he is on Zoloft and Vistaril. He states he used to be on benzodiazepines but his current psychiatrist took him off of those. He states he was to find a new psychiatrist. He states that he has some discomfort in his throat like somebody is choking him. He feels that his tongue is swelling. He states he is very worried he is having a throat and mouth issue. Patient has been able to eat and drink. There has been no fevers. No recent URI. Physical Examination: Afebrile vital signs are stable Gen: Well-nourished well-developed Head: Normocephalic atraumatic Eyes: Perrl EOMI ENT: TMs clear no rhinorrhea moist mucous membranes no drooling. There is no stridor. Neck: Supple no lymphadenopathy no JVD nontender CVS: Regular rate rhythm no murmurs normal S1-S2 Respiratory: No distress clear to auscultation bilaterally chest nontender Abdomen: Soft nontender nondistended normal bowel sounds no masses Back: Nontender Extremity: Nontender no edema Skin: Normal color no rash Neuro: alert orientated ?3 CN II-XII intact normal strength sensation reflexes gait cerebellar Psych: Is extremely anxious Emergency Department Course and Treatment: Patient received Ativan orally. States he is feeling better but still is worried about his throat. I do not see any progressive swelling of the uvula of the tongue. He is able to lay back. There is no stridor or drooling. Impression: 1. Panic attack 2. Generalized anxiety disorder This note was generated with [employer] software. It may contain incorrect words, spelling, and punctuation that were not noted in review of the chart prior to signing ED Disposition - Plan for ED Patient: Disposition: Home or Assisted Living Chief Complaint: Anxiety Instructions: ED Panic Attack Referrals: Jm Ty MD [Primary Care Provider] - 1 Week
[2018-09-25 01:04] VITALS: BP 134/89; PULSE 95; RESP 16; O2SAT 97
== END 2018-09-25 01:05 | disposition home or self-care (01) ==
PROVIDERS: Emergency Provider Emergency Medicine; Family Provider Internal Medicine; PCP Internal Medicine
DX: F41.0 Panic disorder [episodic paroxysmal anxiety] (principal); F41.1 Generalized anxiety disorder; Z79.899 Other long term (current) drug therapy
CPT/HCPCS: 99284

== ENCOUNTER 2018-10-05 23:22 | Emergency (ER) | payer MEDICAID, SELFPAY ==
[2018-10-05 23:24] VITALS: BP 141/85; PULSE 100; RESP 18; TEMP 36.8; O2SAT 98; BMI 32.5
[2018-10-05] MEDS: LORazepam 2 MG/ML Syringe 1 MG IM (23:45)
--- NOTE | 2018-10-06 00:28 | ED.VIS.GEN ---
History of Present Illness Chief Complaint: Anxiety Informant: Patient Onset: Hours - 1 Context: Sudden Onset - while playing video games Timing: Continuous Quality: anxious, shaky, heart racing Location: all over Current Severity: Severe Maximum Severity: Severe Worsened by: nothing Relieved by: nothing despite trying hydroxyzine Narrative: History of anxiety/panic attacks. This feels similar but worse than usual. Usually resolve with Ativan. He states his doctor had him on as needed Ativan and he was needing a lot of it in addition to his daily Zoloft to try to prevent these. His doctor subsequently decreased his Ativan, and the patient is aware of his doctors attempts to keep him from getting addicted to benzodiazepines, and to try to keep him from needing Ativan. The patient is insightful that he uses it quite a bit and does not want to get addicted, however he feels bad tonight and is asking if he can have a dose to try to help him feel better and also wants to make sure he is not having anything else dangerous. Prior similar symptoms: Yes - Past Medical History (1) Generalized anxiety disorder with panic attacks Status: Chronic (2) Segmental and somatic dysfunction of cervical region Status: Chronic (3) Segmental and somatic dysfunction of lumbar region Status: Chronic (4) Segmental and somatic dysfunction of thoracic region Status: Chronic Past Medical History - Allergies and Home Meds Allergies/Adverse Reactions: Allergies No Known Allergies Allergy (Verified 10/05/18 23:22) Primary Care Physician: [facility]ing[facility] [GROUP OF PHYSICIANS] - 2 Days Jm Ty MD [Primary Care Provider] - Smoking Status: Never smoker Drugs: None Review of Systems General: Denies: Chills, Fever, Sweats Eyes: Denies: Visual changes - bilaterally, Diplopia ENT: Denies: Sore throat Cardiovascular: Reports: Heart racing. Denies: Chest pain Respiratory: Denies: Dyspnea, Cough, Dyspnea on exertion Gastrointestinal: Denies: Abdominal pain, Nausea, Vomiting, Diarrhea, Melena, Hematochezia Genitourinary: Denies: Dysuria, Hematuria, Frequency Musculoskeletal: Denies: Swelling, Extremity Pain Skin: Denies: Rash Neurological: Reports: Weakness - All over, mild - my strength is not quite normal, Parasthesia - Both hands. Denies: Headache, Numbness Psych: Reports: Anxiety. Denies: Suicidal thoughts, Suicidal ideations Endocrine: Denies: Heat intolerance, Cold intolerance Allergy: Denies: Swelling of the mouth, Swelling of the tongue Physical Exam Vital Signs/Narrative: Vital Signs Temp Pulse Resp BP Pulse Ox 10/05/18 23:24 98.2 F 100 18 141/85 H 98 Inital Vital Signs reviewed: Yes General: Well nourished, Well developed Head: Normocephalic, Atraumatic Eyes: Perrl, EOMI - Disconjugate gaze, chronic ENT: Moist mucous membranes, No rhinorrhea Neck: Supple, Nontender, No lymphadenopathy, No JVD Cardiovascular: Regular rate, Regular rhythm, No murmurs. Negative for: Tachycardia Respiratory: No distress, CTA bilaterally, Chest nontender Abdomen: Soft, Nontender, Nondistended, Normal bowel sounds Back: Nontender, Normal Inspection Extremities: Nontender, No edema Skin: Normal color, No rash Neurological: Alert, Oriented x3, Cranial nerves II-XII grossly intact, Normal Strength, Normal Sensation Psychological: - - Anxious Diagnostic/Tx/Re-eval - Medical Decision Making Patient was given a dose of Ativan 1 mg IM, he feels much better. His heart rhythm is normal. I reassure him, I do not think there is anything dangerous going on. I advised him to follow-up with his doctor, he may discuss possibly changing his long-term daily preventative medication to something different if he is requiring Ativan that much. He is in agreement. ED Disposition - Plan for ED Patient: Disposition: Home or Assisted Living Chief Complaint: Anxiety Diagnosis: Anxiety attack Instructions: ED Panic Attack Referrals: Jm Ty MD [Primary Care Provider] - [facility] [GROUP OF PHYSICIANS] - 2 Days
[2018-10-06 00:49] VITALS: BP 131/89; PULSE 76; RESP 15; O2SAT 98
--- NOTE | 2018-10-06 00:50 | ED.RN ---
NO REACTION NOTED AFTER ATIVAN INJECTION. PATIENT SEEMS TO BE MORE RELAXED SINCE HE HAD INJECTION. HE WAS A LITTLE PARANOID OF [employer] BY WATCHING THE NUMBERS CONSTANTLY. STATES HE HAS CHRONIC RINGING IN HIS EARS. HE DOES USE EAR BUDS A LOT. NO ASPRIN USE. SAID HE SHOULD F/U WITH HIS FAMILY DOCTOR AND GET A REFERRAL TO AN ENT. NO SIGNS OF CONGESTION OR PAIN IN HIS EARS ETC PER PATIENT. HE WAS DISCHARGED HOME AND HE CALLED FOR A CAB.
--- OUTSIDE RECORDS SUMMARY | 2018-11-29 21:58 | XMS RPT_ITS ---
:1985 Author Organization OHIP Support Name Relationship Address Phone D Unavailable Unavailable Unavailable TRACY FERRER Unavailable [address] + [place] [address] D Unavailable Unavailable Unavailable TRACY FERRER Unavailable [address] + [place] [address] D Unavailable Unavailable Unavailable TRACY FERRER Unavailable [address] + [place] [address] D Unavailable Unavailable Unavailable TRACY FERRER Unavailable [address] + [place] [address] D Unavailable Unavailable Unavailable TRACY FERRER Unavailable [address] + [place] [address] D Unavailable Unavailable Unavailable TRACY FERRER Unavailable [address] + [place] [address] D Unavailable Unavailable Unavailable TRACY FERRER Unavailable [address] + [place] [address] D Unavailable Unavailable Unavailable TRACY FERRER Unavailable [address] + [place] [address] D Unavailable Unavailable Unavailable TRACY FERRER Unavailable [address] + [place] [address] D Unavailable Unavailable Unavailable TRACY FERRER Unavailable [address] + [place] [address] D Unavailable Unavailable Unavailable TRACY FERRER Unavailable [address] + [place] [address] D Unavailable Unavailable Unavailable TRACY FERRER Unavailable [address] + [place] [address] D Unavailable Unavailable Unavailable TRACY FERRER Unavailable [address] + [place] [address] D Unavailable Unavailable Unavailable FERRER TRACY Unavailable [address] + [place] [address] D Unavailable Unavailable Unavailable FERRER TRACY Unavailable [address] + [place] [address] D Unavailable Unavailable Unavailable FERRER TRACY Unavailable [address] + [place] [address] D Unavailable Unavailable Unavailable FERRER, TRACY Unavailable [address] + [place] [address] D Unavailable Unavailable Unavailable FERRER TRACY Unavailable [address] + [place] [address] D Unavailable Unavailable Unavailable FERRER TRACY Unavailable [address] + [place] [address] D Unavailable Unavailable Unavailable FERRER TRACY Unavailable [address] + [place] [address] D Unavailable Unavailable Unavailable FERRER TRACY Unavailable [address] + [place] [address] D Unavailable Unavailable Unavailable FERRERBUSHRATRACY Unavailable [address] + [place] [address] D Unavailable Unavailable Unavailable FERRER TRACY Unavailable [address] + [place] [address] Care Team Providers Name Role Phone WHITLEY FLORES (ANTHROPOLOGICAL LINGUIST) Referring Unavailable OLDER, WHITLEY ([facility]) Attending Unavailable JM LUO Referring Unavailable JM LUO Attending Unavailable OLDERWHITLEY (ANTHROPOLOGICAL LINGUIST) Referring Unavailable OLDER, WHITLEY ([facility]) Attending Unavailable WHITLEY FLORES ([facility]) Attending Unavailable АННА FAGAN Attending Unavailable Indu, Dr. Dave Jackson Admitting Unavailable Buchanan, Dr. Dave Jackson Attending Unavailable Lujan, Dr. Chato Cooper Admitting Unavailable Lujan, Dr. Chato Cooper Attending Unavailable Buchanan, Dr. Dave Jackson Admitting Unavailable Indu, Dr. Dave Jackson Attending Unavailable Sarah Payano Attending Unavailable Jennifer Bailey Primary Care Unavailable Daniela Shepherd Attending Unavailable Daniela Shepherd Referring Unavailable Jennifer Bailey Primary Care Unavailable Leo, Jennifer Primary Care Unavailable Alessandro Palumbo Attending Unavailable Leo, Jennifer Primary Care Unavailable Katarina Osborne Attending Unavailable Raymond Lehman Attending Unavailable Leo, Jennifer Referring Unavailable Leo, Jennifer Primary Care Unavailable Raymond Lehman Attending Unavailable Dominik, Raymond Referring Unavailable Leo, Jennifer Primary Care Unavailable Leo, Jennifer Primary Care Unavailable Alba Boyd Attending Unavailable Leo, Jennifer Primary Care Unavailable Storm Encinas Attending Unavailable Dossie, Jennifer Alvarez.CBetty Attending Unavailable Leo, Jennifer Referring Unavailable Leo, Jennifer Primary Care Unavailable Leo, Jennifer Primary Care Unavailable Frank Olmos Attending Unavailable Dossie, Jennifer BellCBetty Attending Unavailable Leo, Jennifer Referring Unavailable Leo, Jennifer Primary Care Unavailable Leo, Jennifer Primary Care Unavailable Davi Gonzalez Attending Unavailable Dossie, Jennifer Alvarez.CBetty Attending Unavailable Dossie, Jennifer Alvarez.CBetty Attending Unavailable Primay Care Physicia, No Referring Unavailable Leo, Jennifer Primary Care Unavailable Dossie, Jennifer Alvarez.CBetty Attending Unavailable Primay Care Physicia, No Referring Unavailable Dossie, Jennifer Alvarez.CBetty Attending Unavailable Primay Care Physicia, No Referring Unavailable Jesus Barr Attending Unavailable Luo, Jm Primary Care Unavailable Luo, Jm Primary Care Unavailable Mark Abdalla Attending Unavailable Luo, Jm Primary Care Unavailable Uzair Estrella Attending Unavailable Luo, Jm Primary Care Unavailable Juan Manuel Arnold Attending Unavailable Luo, Jm Primary Care Unavailable Nahun Ybarra Attending Unavailable Luo, Jm Primary Care Unavailable JHOAN SALDANA Attending Unavailable Luo, Jm Primary Care Unavailable Alba Boyd Attending Unavailable PROBLEMS PROBLEMS DATE TYPE CONDITION / CODE ATTENDING STATUS SOURCE 08/07/2018 Unknown M99.02 - Segmental Dossie, Jennifer [facility] [place] [facility] thoracic region / Repository M99.02(ICD-10) 08/07/2018 Unknown M99.03 - Segmental Dossie, Jennifer Active [place] [facility] dysfunction of [facility] lumbar region / Repository M99.03(ICD-10) 08/07/2018 Unknown M99.01 - Segmental Dossie, Jennifer Active [place] [facility] dysfunction of Hospital cervical region / Repository M99.01(ICD-10) 07/24/2018 Unknown M62.830 - Muscle Dominik, Raymond Active [place] spasm of back / Community M62.830(ICD-10) Hospital Repository 07/18/2018 Active Personal history of NA Active [facility] other specified Clinic Main conditions / [place] Z87.898(ICD-10) Repository 03/19/2018 Active Vitamin D NA Active [facility] deficiency, Clinic Main unspecified / [place] E55.9(ICD-10) Repository 03/19/2018 Active Encounter for NA [facility] screening for lipoid Clinic Main disorders / [place] Z13.220(ICD-10) Repository 03/19/2018 Active Encounter for NA Active [facility] screening for Clinic Main cardiovascular [place] disorders / Repository Z13.6(ICD-10) 03/19/2018 Active Abnormal results of Active [facility] thyroid function Clinic Main studies / [place] R94.6(ICD-10) Repository 02/15/2018 Unknown E03.9 - Daniela Shepherd Active [place] Hypothyroidism, Community unspecified / Hospital E03.9(ICD-10) Repository 12/31/2017 Active Unknown / АННА FAGAN Active [facility] UNK(Unknown) Clinic Main [place] Repository PROCEDURES PROCEDURES No Procedure Records FoundRESULTS RESULTS EMERGENCY DEPARTMENT Observed: 10/13/2018 Status: F Source: [place] SUMMARY 11:44 PM [facility] REPOSITORY [facility] Medical Records Department [address] [place] [address] Emergency Department Summary 10/13/18 2248 MR#: [id number] Acct: [id number] Name: DONIS FERRER Rep #: [id number] : 1985 33 From: Alba Boyd MD PCP: Jm Luo MD Status: DEP ER - ER Visit Summary Date of Service: 10/13/18 Chief Complaint: [] Anxiety exacerbation History of Present Illness: The patient is a 33 M [] long history of anxiety on non-controlled substances Ativan was discontinued about 1 month ago he reports he had a exacerbation of his anxiety disorder today where he felt sense of complete nervousness, no no homicidal suicidal ideation no drug abuse no fever no cough no other complaints he has had these exacerbations chronically he is seeing counselors and they have asked him to try to manage these with deep breathing and mindfulness type exercises that did not work today and he came in Physical Examination: [] 128/100 heart rate 90 General, no distress resting comfortably HEENT is generally unremarkable The neck is supple no adenopathy Cardiovascular, regular rate and rhythm Lungs, clear bilateral Abdomen, soft nontender Extremities, no clubbing cyanosis or edema Neurologic, awake alert answering questions appropriately moving all 4 extremities At this time is resting comfortably no suicidal homicidal ideation indicates he is usually treated with Ativan 1 mg p.o. he can see his counselor his outpatient providers tomorrow he is comfortable with this plan Test Results: [] Emergency Department Course and Treatment: [] Treatment Plan: [] Disposition: [] Home stable Impression: [] Anxiety disorder This note was generated with Tomo Clasesation software. It may contain incorrect words, spelling, and punctuation that were not noted in review of the chart prior to signing ED Disposition - Plan for ED Patient: Chief Complaint: Anxiety Referrals: Jm Luo MD [Primary Care Provider] - What to do if you have Problems For any increased pain, shortness of breath, bleeding, nausea or vomiting, chest pain, or any unexpected problems, contact your Primary Care Provider. Call Doctors Registry ([phone]) or report to the closest Emergency Room. Call 911 if necessary. 10/13/18 6684 <Electronically signed by Alba Boyd MD> Date Alba Boyd MD Cosigner Signature (If Indicated): Date CC: Jm Luo MD DISCHARGE INSTRUCTION Observed: 10/13/2018 Status: F Source: [place] 10:59 PM [facility] REPOSITORY [facility] Medical Records Department [address] [place] [address] Discharge Instruction 10/13/18 2569 MR#: [id number] Acct: [id number] Name: DONIS FERRER Rep #: [id number] : 1985 33 From: Alba Boyd MD PCP: Jm Luo MD Status: PRE ER ED Disposition - Plan for ED Patient: Chief Complaint: Anxiety Instructions: ED Panic Attack Referrals: Jm Luo MD [Primary Care Provider] - What to do if you have Problems For any increased pain, shortness of breath, bleeding, nausea or vomiting, chest pain, or any unexpected problems, contact your Primary Care Provider. Call [facility] ([phone]) or report to the closest Emergency Room. Call 911 if necessary. 10/13/18 2016 <Electronically signed by Alba Boyd MD> Date Alba Boyd MD Cosigner Signature (If Indicated): Date CC: Jm Luo MD EMERGENCY DEPARTMENT Observed: 10/06/2018 Status: F Source: [place] SUMMARY 12:39 AM [facility] REPOSITORY [facility] Medical Records Department [address] [place] [address] Emergency Department Summary 10/06/18 0028 MR#: [id number] Acct: [id number] Name: DONIS FERRER Rep #: [id number] : 1985 33 From: Jhoan Saldana MD PCP: Jm Luo MD Status: REG ER History of Present Illness Chief Complaint: Anxiety Informant: Patient Onset: Hours - 1 Context: Sudden Onset - while playing video games Timing: Continuous Quality: anxious, shaky, heart racing Location: all over Current Severity: Severe Maximum Severity: Severe Worsened by: nothing Relieved by: nothing despite trying hydroxyzine Narrative: History of anxiety/panic attacks. This feels similar but worse than usual. Usually resolve with Ativan. He states his doctor had him on as needed Ativan and he was needing a lot of it in addition to his daily Zoloft to try to prevent these. His doctor subsequently decreased his Ativan, and the patient is aware of his doctors attempts to keep him from getting addicted to benzodiazepines, and to try to keep him from needing Ativan. The patient is insightful that he uses it quite a bit and does not want to get addicted, however he feels bad tonight and is asking if he can have a dose to try to help him feel better and also wants to make sure he is not having anything else dangerous. Prior similar symptoms: Yes - Past Medical History (1) Generalized anxiety disorder with panic attacks Status: Chronic (2) Segmental and somatic dysfunction of cervical region Status: Chronic (3) Segmental and somatic dysfunction of lumbar region Status: Chronic (4) Segmental and somatic dysfunction of thoracic region Status: Chronic Past Medical History - Allergies and Home Meds Allergies/Adverse Reactions: Allergies No Known Allergies Allergy (Verified 10/05/18 23:22) Primary Care Physician: Counseling,Center [GROUP OF PHYSICIANS] - 2 Days Jm Luo MD [Primary Care Provider] - Smoking Status: Never smoker Drugs: None Review of Systems General: Denies: Chills, Fever, Sweats Eyes: Denies: Visual changes - bilaterally, Diplopia ENT: Denies: Sore throat Cardiovascular: Reports: Heart racing. Denies: Chest pain Respiratory: Denies: Dyspnea, Cough, Dyspnea on exertion Gastrointestinal: Denies: Abdominal pain, Nausea, Vomiting, Diarrhea, Melena, Hematochezia Genitourinary: Denies: Dysuria, Hematuria, Frequency Musculoskeletal: Denies: Swelling, Extremity Pain Skin: Denies: Rash Neurological: Reports: Weakness - All over, mild - my strength is not quite normal, Parasthesia - Both hands. Denies: Headache, Numbness Psych: Reports: Anxiety. Denies: Suicidal thoughts, Suicidal ideations Endocrine: Denies: Heat intolerance, Cold intolerance Allergy: Denies: Swelling of the mouth, Swelling of the tongue Physical Exam Vital Signs/Narrative: Vital Signs 10/05/18 23:24 98.2 F 100 18 141/85 H 98 Inital Vital Signs reviewed: Yes General: Well nourished, Well developed Head: Normocephalic, Atraumatic Eyes: Perrl, EOMI - Disconjugate gaze, chronic ENT: Moist mucous membranes, No rhinorrhea Neck: Supple, Nontender, No lymphadenopathy, No JVD Cardiovascular: Regular rate, Regular rhythm, No murmurs. Negative for: Tachycardia Respiratory: No distress, CTA bilaterally, Chest nontender Abdomen: Soft, Nontender, Nondistended, Normal bowel sounds Back: Nontender, Normal Inspection Extremities: Nontender, No edema Skin: Normal color, No rash Neurological: Alert, Oriented x3, Cranial nerves II-XII grossly intact, Normal Strength, Normal Sensation Psychological: - - Anxious Diagnostic/Tx/Re-eval - Medical Decision Making Patient was given a dose of Ativan 1 mg IM, he feels much better. His heart rhythm is normal. I reassure him, I do not think there is anything dangerous going on. I advised him to follow-up with his doctor, he may discuss possibly changing his long-term daily preventative medication to something different if he is requiring Ativan that much. He is in agreement. ED Disposition - Plan for ED Patient: Disposition: Home or Assisted Living Chief Complaint: Anxiety Diagnosis: Anxiety attack Instructions: ED Panic Attack Referrals: Jm Luo MD [Primary Care Provider] - Counseling,Center [GROUP OF PHYSICIANS] - 2 Days What to do if you have Problems For any increased pain, shortness of breath, bleeding, nausea or vomiting, chest pain, or any unexpected problems, contact your Primary Care Provider. Call Doctors Registry ([phone]) or report to the closest Emergency Room. Call 911 if necessary. 10/06/18 0039 <Electronically signed by Jhoan Saldana MD> Date Jhoan Saldana MD Cosigner Signature (If Indicated): Date CC: Jm Luo MD EMERGENCY DEPARTMENT Observed: 09/25/2018 Status: F Source: [place] SUMMARY 6:51 AM [facility] REPOSITORY [facility] Medical Records Department [address] [place] [address] Emergency Department Summary 09/25/18 0026 MR#: [id number] Acct: [id number] Name: DONIS FERRER Rep #: [id number] : 1985 33 From: Nahun Ybarra DO PCP: Jm Luo MD Status: DEP ER - ER Visit Summary Date of Service: 09/25/18 Chief Complaint: Sore throat and anxiety History of Present Illness: The patient is a 33 M who states that today he has had multiple panic attacks. He states he is on Zoloft and Vistaril. He states he used to be on benzodiazepines but his current psychiatrist took him off of those. He states he was to find a new psychiatrist. He states that he has some discomfort in his throat like somebody is choking him. He feels that his tongue is swelling. He states he is very worried he is having a throat and mouth issue. Patient has been able to eat and drink. There has been no fevers. No recent URI. Physical Examination: Afebrile vital signs are stable Gen: Well-nourished well-developed Head: Normocephalic atraumatic Eyes: Perrl EOMI ENT: TMs clear no rhinorrhea moist mucous membranes no drooling. There is no stridor. Neck: Supple no lymphadenopathy no JVD nontender CVS: Regular rate rhythm no murmurs normal S1-S2 Respiratory: No distress clear to auscultation bilaterally chest nontender Abdomen: Soft nontender nondistended normal bowel sounds no masses Back: Nontender Extremity: Nontender no edema Skin: Normal color no rash Neuro: alert orientated 3 CN II-XII intact normal strength sensation reflexes gait cerebellar Psych: Is extremely anxious Emergency Department Course and Treatment: Patient received Ativan orally. States he is feeling better but still is worried about his throat. I do not see any progressive swelling of the uvula of the tongue. He is able to lay back. There is no stridor or drooling. Impression: 1. Panic attack 2. Generalized anxiety disorder This note was generated with Tomo Cl[employer] software. It may contain incorrect words, spelling, and punctuation that were not noted in review of the chart prior to signing ED Disposition - Plan for ED Patient: Disposition: Home or Assisted Living Chief Complaint: Anxiety Instructions: ED Panic Attack Referrals: Jm Luo MD [Primary Care Provider] - 1 Week What to do if you have Problems For any increased pain, shortness of breath, bleeding, nausea or vomiting, chest pain, or any unexpected problems, contact your Primary Care Provider. Call [facility] Registry ([phone]) or report to the closest Emergency Room. Call 911 if necessary. 09/25/18 0651 <Electronically signed by Nahun Ybarra DO> Date Nahun Ybarra DO Cosigner Signature (If Indicated): Date CC: Jm Luo MD 12 LEAD ELECTROCARDIOGRAM Observed: 09/17/2018 Status: F Source: [place] 3:54 PM [facility] REPOSITORY [facility] Cardiovascular Services [address] [place] [id number] 12 Lead EKG 09/13/18 1919 MR#: [id number] Acct: [id number] Name: DONIS FERRER Rep #: [id number] : 1985 33 From: Anthony Saba MD Attending Dr: Status: DEP ER Ordering Dr: Jesus Barr DO Date: 09/13/18 Location: ED Sex: M C Admitted: Test Reason : MHC Blood Pressure : / mmHG Vent. Rate : 080 BPM Atrial Rate : 080 BPM P-R Int : 140 ms QRS Dur : 080 ms QT Int : 364 ms P-R-T Axes : 076 059 074 degrees QTc Int : 419 ms Normal sinus rhythm with sinus arrhythmia Normal ECG Confirmed by ANTHONY SABA MD ([id number]), online editor MADY VALENZUELA ([id number]) on 09/17/2018 3:53:42 PM Referred By: DR NORWOOD Confirmed By:ANTHONY SABA MD 09/17/18 1553 Date Anthony Saba MD CC: Jesus Barr DO; Juan Manuel Arnold MD; Jm Luo MD Signed CBC W/DIFF, AUTOMATED Collected: 09/13/2018 Status: F Source: [place] 3:39 AM [facility] REPOSITORY TYPE CODE TESTS RESULT OUT OF RANGE REFERENCE UNITS LAB L100.1000 4.4-11.0 K/mm3 Normal WBC 6.5 LAB L100.1200 4.6-6.2 M/mm3 Normal RBC 4.88 LAB L100.1300 13.0-16.5 g/dl Normal HGB 15.1 LAB L100.1400 40-54 % Normal HCT 43.9 LAB L100.1500 80-94 fL Normal MCV 90.0 LAB L100.1600 27.0-32.0 pg Normal MCH 30.9 LAB L100.1700 32-36 g/gl Normal MCHC 34.4 LAB L100.1810 11.6-14.6 % Normal RDW CV 12.4 LAB L100.1820 35.1-43.9 fl Normal RDW SD 40.9 LAB L100.1900 150-450 K/mm3 Normal PLT 201 LAB L100.2000 6.2-12.0 fl Normal MPV 10.3 LAB L100.2100 47-70 % Normal NEUT% 62.4 LAB L100.2200 19-41 % Normal LY% 29.1 LAB L100.2300 0-10 % Normal MONO% 5.0 LAB L100.2400 0-5 % Normal EO% 2.8 LAB L100.2500 0-1 % Normal BASO% 0.5 LAB L100.2550 0.0-0.9 % Normal IM GRAN % 0.200 Result Comment: IG% - Immature Granulocytes (promyelocytes, myelocytes and metamyelocytes) > 1% indicates that a LEFT SHIFT is Present. LAB L100.2620 2.0-7.7 X10 3/uL Normal Absolute Neut 4.1 LAB L100.2720 0.83-4.51 X10 3/ul Normal Absolute Lymph 1.90 Performed By: #### L100.0100 #### [facility] [address] [place], [place], [id number] BASIC METABOLIC Collected: 09/13/2018 Status: F Source: [place] PROFILE (BMP) 3:39 AM [facility] REPOSITORY TYPE CODE TESTS RESULT OUT OF RANGE REFERENCE UNITS LAB L501.0100 74-106 mg/dL Normal GLU 87 Result Comment: Please note revised GLUCOSE reference range effective 2017. LAB L501.1000 7-18 mg/dL Low BUN 6 LAB L501.1100 0.70-1.30 mg/dL Normal CREAT,SERUM 0.99 Result Comment: The validity of the calculated GFR AND GFRAA in patients over 70 years has not been determined. Clinical correlation is essential. LAB L501.1110 >60 mL/min Normal EST GFR 92 Result Comment: Non- GFR Calc LAB L501.1115 >60 mL/min Normal EST GFR - AA 111 Result Comment: GFR Calc LAB L501.1255 ml/min Normal Estimated CRCL 115.40 LAB L501.1300 10-20 RATIO Low BUN/CRE 6.0 LAB L501.2200 8.5-10 mg/dL Low .1 CA 8.4 LAB L501.5300 136-14 mmol/L 5 NA Normal 139 LAB L501.5600 3.5-5. mmol/L 1 K Normal 3.5 LAB L501.5900 98-107 mmol/L CL Normal 104 LAB L501.6100 21.0-3 mmol/L 2.0 CO2 Normal 28.0 LAB L501.6200 5-15 GAP Normal 7 Performed By: #### L500.2500 #### [facility] [address] [place], [address] ALCOHOL, BLOOD Collected: 09/13/2018 Status: F Source: [place] (MEDICAL)-SERUM 3:39 AM [facility] REPOSITORY TYPE CODE TESTS RESULT OUT OF RANGE REFERENCE UNITS LAB L501.9100 mg/dL Normal SERUM < 3.0 ETOH Result Comment: The serum:whole blood ethanol ratio is approximately 1.14 and varies slightly with hematocrit. Medical Alcohol reference interval and critical value in non-tolerant individuals; 50 - 100 Impairment 100 Intoxication 100 - 250 Severe Poisoning 250 - 400 Deep/possible fatal coma Performed By: #### L501.9100 #### [facility] [address] [place], [address] LIVER PROFILE Collected: 09/13/2018 Status: F Source: [place] 3:39 AM [facility] REPOSITORY TYPE CODE TESTS RESULT OUT OF RANGE REFERENCE UNITS LAB L501.1500 6.4-8.2 g/dL Normal T PROT 7.2 LAB L501.1800 3.2-5.0 g/dL Normal ALB 3.9 LAB L501.1950 2.2-4.2 g/dL Normal GLOB 3.3 LAB L501.4100 15-37 U/L Normal AST 15 LAB L501.4305 45-117 U/L Normal ALK P 61 LAB L501.4405 16-61 U/L Normal ALT 25 LAB L501.4600 0.20-1.00 mg/dL Normal T BILI 0.40 LAB L501.4700 0.00-0.30 mg/dL Normal D BILI 0.15 Performed By: #### L500.3400 #### [facility] [address] [place] [place], [address] URINE DRUG SCREEN Collected: 09/13/2018 Status: F Source: [place] (VISTA) 3:20 AM [facility] REPOSITORY TYPE CODE TESTS RESULT OUT OF RANGE REFERENCE UNITS LAB L505.0075 TO BE Normal CONFIRMED Result Comment: CONFIRMATORY TESTING FOR ALL POSITIVE URINE DRUG SCREEN RESULTS WILL ONLY BE SENT OUT UPON PHYSICIAN ORDER. VISTA Urine Drug Screen methods provide only preliminary analytical test results. A more specific alternate chemical method must be used in order to obtain a confirmed analytical result. Gas chromatography/mass spectrometery (GC/MS) is the preferred confirmatory method. Clinical consideration and professional judgement should be applied to any drug of abuse test result, particularly when preliminary positive results are used. URINE TCA TESTING MUST BE ORDERED SEPARATELY. USE TEST MNEMONIC: [facility] LAB L505.5005 VISTA UDS PH 6 Normal LAB L505.5015 <1000 ng/mL AMPHETAMINES Normal NEGATIVE LAB L505.5025 < 200 ng/mL BARBITIURATES Normal NEGATIVE LAB L505.5035 < 200 ng/mL BENZODIAZIPINE Normal NEGATIVE LAB L505.5045 < 300 ng/mL COCAINE Normal NEGATIVE LAB L505.5055 < 500 ng/mL ECSTACY Normal NEGATIVE LAB L505.5065 < 300 ng/mL METHADONE Normal NEGATIVE LAB L505.5075 < 300 ng/mL OPIATES Normal NEGATIVE LAB L505.5085 < 25 ng/mL PCP Normal NEGATIVE LAB L505.5095 < 50 ng/mL THC Normal NEGATIVE Performed By: #### L505.5000 #### [facility] [address] [place], [address] EMERGENCY DEPARTMENT Observed: 09/13/2018 Status: F Source: [place] SUMMARY 3:16 AM [facility] [facility] [place] REPOSITORY [facility] Medical Records Department [address] [place] [address] Emergency Department Summary 09/13/18 0314 MR#: [id number] Acct: [id number] Name: DONIS FERRER Rep #: [id number] : 1985 33 From: Juan Manuel Arnold MD PCP: Jm Luo MD Status: PRE ER - ER Visit Summary Date of Service: 09/13/18 Chief Complaint: Depression anxiety and panic History of Present Illness: The patient is a 33 M who presents with depression and thoughts of hurting himself. He says this is stemming from the fact that his doctor is not giving him any more Ativan. He has a history of panic disorder and says Ativan is the only thing that helps. He does not have a plan but he tells me he is thinking quite dark thoughts and does not feel safe by himself. Physical Examination: On exam he is quite pleasant, quite reasonable. Heart is regular lungs are clear abdomen is soft and nontender. He has no rash she has a normal physical exam. Emergency Department Course and Treatment: Patient will be medically cleared. I will get crisis to talk to him after that. The plan will be to transfer him to psychiatric facility Impression: Depression with suicidal ideation This note was generated with [employer] dictation software. It may contain incorrect words, spelling, and punctuation that were not noted in review of the chart prior to signing ED Disposition - Plan for ED Patient: Chief Complaint: Suicidal Referrals: Jm Luo MD [Primary Care Provider] - What to do if you have Problems For any increased pain, shortness of breath, bleeding, nausea or vomiting, chest pain, or any unexpected problems, contact your Primary Care Provider. Call [facility] ([phone]) or report to the closest Emergency Room. Call 911 if necessary. 09/13/18 0316 <Electronically signed by Juan Manuel Arnold MD> Date Juan Manuel Arnold MD Cosigner Signature (If Indicated): Date CC: Jm Luo MD EMERGENCY DEPARTMENT Observed: 09/08/2018 Status: F Source: [place] SUMMARY 1:45 AM [facility] [place] REPOSITORY [facility] Medical Records Department [address] [place] [address] Emergency Department Summary 09/07/18 2307 MR#: [id number] Acct: [id number] Name: DONIS FERRER Rep #: [id number] : 1985 33 From: Uzair Estrella MD PCP: Jm Luo MD Status: DEP ER - ER Visit Summary Date of Service: 09/07/18 Chief Complaint: Anxiety History of Present Illness: The patient is a 33 M presents to the emergency department with an acute anxiety reaction. The patient has had multiple visits for the same. He states that he became very lightheaded and had a headache. He states he was concerned he was having a stroke. He denies any weakness, numbness, or paresthesias. Had no trouble with his speech or his vision. He states he just felt very anxious and thought something else was going on. He states he was confused. He states this felt worse than his normal anxiety. He denies any fevers or chills. He denies any visual change. He denies any recent trauma. He did take a 1 mg Ativan with some improvement. Physical Examination: Vital signs reviewed General: Well-nourished, well-developed Head: Normocephalic, atraumatic Eyes: Pupils equal and reactive, extraocular muscles intact Neck, supple, no lymphadenopathy Heart: Regular rate and rhythm Respiratory: No distress, clear bilaterally Abdomen: Soft, nontender, nondistended, no peritoneal signs Back: Nontender Extremities: Nontender, no edema, no cords Skin: Normal color no rash Neuro: Alert and oriented, no focal or lateralizing deficits Test Results: [] Emergency Department Course and Treatment: The patient presents with what seems to be an acute anxiety reaction. However, he was having confusion and change in mental status. On arrival, he is basically at baseline. The patient underwent head CT given his multiple recurrent visits for similar symptoms. This was unremarkable. There is no tumor mass or other dangerous process. He is not meningitic. Is not encephalopathic. He was given oral Ativan and observed for 2 hours. He had marked improvement of his symptoms. At this time, I do feel that this is more secondary to his underlying anxiety. I do feel that he is safe for outpatient therapy. He is not suicidal or homicidal. He has no hallucinations. He will be discharged home. Treatment Plan: [] Disposition: Discharge Impression: Acute anxiety reaction This note was generated with [employer] dictation software. It may contain incorrect words, spelling, and punctuation that were not noted in review of the chart prior to signing ED Disposition - Plan for ED Patient: Chief Complaint: Anxiety Instructions: ED Panic Attack Referrals: Jm Luo MD [Primary Care Provider] - What to do if you have Problems For any increased pain, shortness of breath, bleeding, nausea or vomiting, chest pain, or any unexpected problems, contact your Primary Care Provider. Call [facility] ([phone]) or report to the closest Emergency Room. Call 911 if necessary. 09/08/18 0145 <Electronically signed by Uzair Estrella MD> Date Uzair Estrella MD Cosigner Signature (If Indicated): Date CC: Jm Luo MD BRAIN/HEAD WITHOUT Observed: 09/07/2018 Status: F Source: [place] CONTRAST 11:05 PM [facility] Imaging Services [address] [place] [address] Brain/Head without Contrast MR#: [id number] Acct: [id number] Name: DONIS FERRER Rep #: [id number] : 1985 M 33 From: Cody Martinez MD PCP: Jm Luo MD Status: REG ER Study: Brain/Head without Contrast Date of Exam: 09/07/18 Exam# [id number] Ordering Dr: Uzair Estrella MD HISTORY: 2ANXIETY AND CONFUSION TECHNIQUE: Multiple axial images were obtained of the brain without intravenous contrast. A radiation dose optimization technique was used for this scan. IV Contrast dosage and agent: None. COMPARISON: None FINDINGS: The ventricles are normal in size. Sigala-white matter differentiation appears normal. No intracranial mass, hemorrhage, or acute disease. Posterior fossa structures show no abnormality. No suspicious extra-axial fluid collection. Bilateral ethmoid, frontal, and left maxillary sinusitis. CT/Brain/Head without Contrast IMPRESSION: 1. Normal CT brain without contrast. 2. Paranasal sinusitis. Individualized dose optimization techniques were used for this CT. at 0045 Reported and signed by: Cody Martinez MD Electronically Signed: Cody Martinez, at 0:43 EDT Tel , Service support , CC: Uzair Estrella MD; Jm Luo MD Power Project Manager: Signed 12 LEAD ELECTROCARDIOGRAM Observed: 08/19/2018 Status: F Source: [place] 3:51 PM [facility] REPOSITORY [facility] Cardiovascular Services [address] [place] [address] 12 Lead EKG 08/17/18 2255 MR#: [id number] Acct: [id number] Name: DONIS FERRER Rep #: [id number] : 1985 33 From: Anthony Saba MD Attending Dr: Status: DEP ER Ordering Dr: Mark Abdalla MD Date: 08/17/18 Location: ED Sex: M C Admitted: Test Reason : PALPS Blood Pressure : / mmHG Vent. Rate : 083 BPM Atrial Rate : 083 BPM P-R Int : 144 ms QRS Dur : 074 ms QT Int : 356 ms P-R-T Axes : 067 039 063 degrees QTc Int : 418 ms Normal sinus rhythm with sinus arrhythmia Normal ECG Confirmed by JASSON RODAS, ANTHONY ([id number]), online editor MADY VALENZUELA ([id number]) on 08/19/2018 3:51:36 PM Referred By: CLARITZA Confirmed By:ANTHONY SABA MD 08/19/18 1551 Date Anthony Saba MD CC: Mark Abdalla MD; Jm Luo MD Signed DISCHARGE INSTRUCTION Observed: 08/18/2018 Status: F Source: [place] 12:56 AM [facility] Medical Records Department [address] [place] [address] Discharge Instruction 08/17/18 2303 MR#: [id number] Acct: [id number] Name: DONIS FERRER Rep #: [id number] : 1985 33 From: Mark Abdalla MD PCP: Jm Luo MD Status: DEP ER ED Disposition - Plan for ED Patient: Disposition: Home or Assisted Living Chief Complaint: Palpitations Instructions: ED Palpitations Referrals: Jm Luo MD [Primary Care Provider] - What to do if you have Problems For any increased pain, shortness of breath, bleeding, nausea or vomiting, chest pain, or any unexpected problems, contact your Primary Care Provider. Call [facility] ([phone]) or report to the closest Emergency Room. Call 911 if necessary. 08/18/18 0056 <Electronically signed by Mark Abdalla MD> Date Mark Abdalla MD Cosigner Signature (If Indicated): Date CC: Jm Luo MD EMERGENCY DEPARTMENT Observed: 08/18/2018 Status: F Source: [place] SUMMARY 12:56 AM [facility] [place] REPOSITORY [facility] Medical Records Department [address] [place] [address] Emergency Department Summary 08/17/18 2301 MR#: [id number] Acct: [id number] Name: DONIS FERRER Rep #: [id number] : 1985 33 From: Mark Abdalla MD PCP: Jm Luo MD Status: DEP ER - ER Visit Summary Date of Service: 08/17/18 Chief Complaint: [] Palpitations History of Present Illness: The patient is a 33 M stated he developed some palpitations an hour ago at home at rest. He felt a few extra beats. He was not sure if he was having an anxiety attack or actually had an abnormal rhythm. He called the paramedics. Denies any other symptoms. He is on Ativan, Vistaril, Zoloft. He was seen a week ago for anxiety with normal lab work. He stated he felt 3 extra beats. It has stopped Physical Examination: [] Vital signs reviewed General: Well-nourished well-developed Head: Normocephalic atraumatic Eyes: Pupils equal round and reactive to light extraocular movements intact ENT: TMs clear no hemotympanum no trauma Neck: Nontender full range of motion Cardiovascular: Regular rate rhythm no murmurs normal S1-S2 Respiratory: No distress clear to auscultation bilaterally chest nontender Abdomen: Soft nontender nondistended normal bowel sounds no masses Back: Nontender no CVA tenderness Extremities: Nontender active range of motion 4 extremities no trauma Skin: Normal color no trauma Neuro alert oriented cranial nerves II through XII intact normal strength sensation reflexes Test Results: [] Emergency Department Course and Treatment: [] She is resting comfortably. He denies any signs or symptoms of illness or sickness or infection. His temperatures just on the high side of normal. I do not feel he has sepsis or infection. He had a EKG that showed sinus arrhythmia. Rate of 83. No PVCs. No ischemia. He was watched on the monitor. He had no abnormal rhythm. He will be discharged to follow-up. He likely had a few PVCs Treatment Plan: [] Disposition: [] Impression: [] Palpitations This note was generated with [employer] dictation software. It may contain incorrect words, spelling, and punctuation that were not noted in review of the chart prior to signing ED Disposition - Plan for ED Patient: Chief Complaint: Palpitations Referrals: Jm Luo MD [Primary Care Provider] - What to do if you have Problems For any increased pain, shortness of breath, bleeding, nausea or vomiting, chest pain, or any unexpected problems, contact your Primary Care Provider. Call [facility] ([phone]) or report to the closest Emergency Room. Call 911 if necessary. 08/18/18 0056 <Electronically signed by Mark Abdalla MD> Date Mark Abdalla MD Cosigner Signature (If Indicated): Date CC: Jm Luo MD CHIROPRACTIC REPORT Observed: 08/14/2018 Status: F Source: [place] 11:06 AM [facility] [address] [place] [address] OFFICE VISIT Date of Service: 08/06/18 MR#: [id number] Acct: [id number] Name: DONIS FERRER Rep #: [id number] : 1985 Provider: Jennifer Hayden D.C. Age/Sex: 33/M Location: [facility] Status: Signed Intake Vital Signs08/06/18 Height 6 ft 08/06/18 Weight: 220 lb 08/06/18 Body Mass Index (BMI) 29.8 Intake Visit Reasons: back pain Chief Complaint: neck and low back pain Is patient in pain?: Yes Allergies No Known Allergies Allergy (Verified 07/04/18 23:50) Medications Lorazepam [Ativan] 1 mg PO DAILY PRN PRN #7 tab 06/26/18 [Rx Confirmed 08/11/18] Cholecalciferol (Vitamin D3) [Vitamin D3] 1,000 unit PO DAILY 08/11/18 [History Confirmed 08/11/18] Hydroxyzine HCl 50 mg PO DAILY PRN 08/11/18 [History Confirmed 08/11/18] Sertraline HCl [Zoloft] 50 mg PO DAILY 08/11/18 [History Confirmed 08/11/18] [facility] Medical History Anxiety (Acute) Arthritis (Acute) Back pain (Acute) Limb weakness (Acute) Panic attacks (Acute) [place] teeth removed (Acute) Family History Other Anxiety Depression Social History Smoking Status: Former smoker alcohol intake: never HPI back pain: Chief Complaint: neck and low back pain Visit Number: 5 Details: DONIS FERRER is a 33 year old M who presents with decreased neck and low back pain. He states that his neck pain is not as severe leaving him with only a dull ache, rotation of the neck and prolonged sitting still causes increased pain. The patient also complains of low back pain that increases with frequent bending, and prolonged sitting. Donis denies any numbness, tingling, or radiculopathy. Location: neck and low back pain Duration: intermittent Aggravating or associated factors: bending, sitting and rotation Relieving factors: chiro Pain Quality: aching, dull, cramping Exam Musc General: Yes normal gait, joint tenderness (C2, C5, C6, T1, T2, L3-L5) and decreased ROM; no normal posture (poor posture) Cervical Spine: loss of normal cervical lordosis (anterior head carriage), cervical muscular tenderness (slightly decreased), pain with cervical ROM, cervical spasm, cervical ROM abnormal Thoracic/Lumbar Spine: thoracic and lumbar spine normal to inspection, thoraco-lumbar ROM normal, pain with thoraco-lumbar ROM, paraspinal tenderness, thoraco-lumbar ROM limited, thoraco-lumbar spasm Office Procedures Chiropractic Treatments Procedures Manipulation: 3-4 regions (C2,C6, T1, L3,L5) Assessment AND Plan 1. Segmental and somatic dysfunction of thoracic region M99.02 Orders Orders: 2. Segmental and somatic dysfunction of lumbar region M99.03 Orders Orders: 3. Segmental and somatic dysfunction of cervical region M99.01 Orders Orders: Plan Detail Goals Decrease pain and spasm Follow Up 1 x week Coding Level of Care Code No Charge Diagnoses Segmental and somatic dysfunction of thoracic region M99.02 Segmental and somatic dysfunction of lumbar region M99.03 Segmental and somatic dysfunction of cervical region M99.01 Additional Codes Procedures - Manipulation: 3-4 regions (81065) 08/14/18 1106 <Electronically signed by Jennifer Hayden D.C.> Date Jennifer Hayden D.C. Cosigner Signature: Date (if applicable) CC: EMERGENCY DEPARTMENT Observed: 08/11/2018 Status: F Source: [place] SUMMARY 8:23 PM [facility] [place] REPOSITORY [facility] Medical Records Department [address] [place] [address] Emergency Department Summary 08/11/18 1823 MR#: [id number] Acct: [id number] Name: DONIS FERRER Rep #: [id number] : 1985 33 From: Jesus Barr DO PCP: Jm Luo MD Status: REG ER - ER Visit Summary Date of Service: 08/11/18 Chief Complaint: Anxiety History of Present Illness: The patient is a 33 M who presents with anxiety that became worse today. Patient states that has been getting gradually worse over the past 2 days. Patient states she normally takes lorazepam for his anxiety. Patient states he has not taken his lorazepam for the past 2 days. Patient states he took it daily for 3 days prior to that. Patient is concerned about withdrawal from the lorazepam. Patient is also on Vistaril for his anxiety. Patient states he took 2 doses of Vistaril today. Patient denies any chest pain or shortness of breath. Patient admits to a mild headache. Patient admits to fleeting suicidal thoughts but denies any suicidal plan. Patient denies any visual or auditory hallucinations. Physical Examination: Vital signs are stable. Patient is afebrile. Patient is in no acute distress. Cranial nerves II through XII are intact. There are no focal motor or sensory deficits noted. Oral mucosa is pink and moist. Neck is supple. Trachea is midline. There is no JVD or lymphadenopathy noted. Heart was regular rate and rhythm. Lungs are clear and equal bilaterally. Abdomen is soft. Bowel sounds are normal. There is no tenderness. The remaining physical exam is within normal limits. Test Results: CBC, basic metabolic profile, urinalysis, and serum alcohol level were obtained were all within normal limits. Emergency Department Course and Treatment: Patient felt better on reevaluation. Patient was instructed to follow-up with the counseling center in 2-3 days. Patient was instructed to continue his medications as previously prescribed. Patient understands and is agreeable with the plan. All questions were answered. Disposition: Discharged home Impression: Anxiety This note was generated with [employer] dictation software. It may contain incorrect words, spelling, and punctuation that were not noted in review of the chart prior to signing ED Disposition - Plan for ED Patient: Disposition: Home or Assisted Living Chief Complaint: Anxiety Diagnosis: Acute anxiety Instructions: ED Panic Attack Referrals: Care Physician,No Primary [NON-STAFF] - What to do if you have Problems For any increased pain, shortness of breath, bleeding, nausea or vomiting, chest pain, or any unexpected problems, contact your Primary Care Provider. Call [facility] ([phone]) or report to the closest Emergency Room. Call 911 if necessary. 08/11/182022 <Electronically signed by Jseus Barr DO> Date Jesus Barr DO Cosigner Signature (If Indicated): Date CC: Jm Luo MD URINALYSIS, COMPLETE Collected: 08/11/2018 Status: F Source: [place] 6:40 PM [facility] [place] REPOSITORY Order Comment: Order Date: 08/11/18 How was Urine Obtained? CLEAN CATCH TYPE CODE TESTS RESULT OUT OF RANGE REFERENCE UNITS LAB L400.3000 Yellow COLOR Normal Yellow LAB L400.3050 Clear Normal CLARITY Clear LAB L400.3200 Normal mg/dl Normal GLUCOSE, UR Normal LAB L400.3300 Negative mg/dL Normal BILIRUBIN URINE Negative LAB L400.3400 Negative mg/dl Normal KETONE UR Negative LAB L400.3465 1.002-1.030 Normal SP.GR. DIPSTX 1.010 LAB L400.3550 5.0 - 8.0 pH UR Normal 7.0 LAB L400.3600 Negative mg/dl PROT Normal DIPSTX Negative LAB L400.3700 Normal mg/dl Normal UROBILI Normal LAB L400.3750 Negative Normal NITRITE UR Negative LAB L400.3780 Negative /ul Normal OCCULT BLOOD-UR Negative LAB L400.3800 Negative /ul LEUK Normal ESTERASE Negative LAB L400.4050 0-5 /hpf WBC 0 Normal SEEN LAB L400.4100 0-5 /hpf Normal RBC-UA 0-5 SEEN LAB L400.4150 0-5 /hpf SQUAM Normal EPI 0-5 SEEN LAB L400.4300 None Seen /hpf 1+ Normal BACTERIA LAB L400.4350 <or=2+ /hpf 0 Normal MUCUS, URINE SEEN Performed By: #### L400.0001 #### [facility] [address] [place], [place], [address] CBC W/DIFF, AUTOMATED Collected: 08/11/2018 Status: F Source: [place] 6:30 PM [facility] [place] REPOSITORY TYPE CODE TESTS RESULT OUT OF RANGE REFERENCE UNITS LAB L100.1000 4.4-11.0 K/mm3 Normal WBC 9.6 LAB L100.1200 4.6-6.2 M/mm3 Normal RBC 4.91 LAB L100.1300 13.0-16.5 g/dl Normal HGB 15.0 LAB L100.1400 40-54 % Normal HCT 44.8 LAB L100.1500 80-94 fL Normal MCV 91.2 LAB L100.1600 27.0-32.0 pg Normal MCH 30.5 LAB L100.1700 32-36 g/gl Normal MCHC 33.5 LAB L100.1810 11.6-14.6 % Normal RDW CV 12.8 LAB L100.1820 35.1-43.9 fl Normal RDW SD 42.8 LAB L100.1900 150-450 K/mm3 Normal PLT 181 LAB L100.2000 6.2-12.0 fl Normal MPV 10.5 LAB L100.2100 47-70 % High NEUT% 76.9 LAB L100.2200 19-41 % Low LY% 13.9 LAB L100.2300 0-10 % Normal MONO% 6.0 LAB L100.2400 0-5 % Normal EO% 2.7 LAB L100.2500 0-1 % Normal BASO% 0.4 LAB L100.2550 0.0-0.9 % Normal IM GRAN % 0.100 Result Comment: IG% - Immature Granulocytes (promyelocytes, myelocytes and metamyelocytes) > 1% indicates that a LEFT SHIFT is Present. LAB L100.2620 2.0-7.7 X10 3/uL Normal Absolute Neut 7.4 LAB L100.2720 0.83-4.51 X10 3/ul Normal Absolute Lymph 1.34 Performed By: #### L100.0100 #### [facility] [address] [place], [address] BASIC METABOLIC Collected: 08/11/2018 Status: F Source: [place] PROFILE ([facility]) 6:30 PM [facility] [place] REPOSITORY TYPE CODE TESTS RESULT OUT OF RANGE REFERENCE UNITS LAB L501.0100 74-106 mg/dL Normal GLU 90 Result Comment: Please note revised GLUCOSE reference range effective 2017. LAB L501.1000 7-18 mg/dL Normal BUN 9 LAB L501.1100 0.70-1.30 mg/dL Normal CREAT,SERUM 0.98 Result Comment: The validity of the calculated GFR AND GFRAA in patients over 70 years has not been determined. Clinical correlation is essential. LAB L501.1110 >60 mL/min Normal EST GFR 93 Result Comment: Non- GFR Calc LAB L501.1115 >60 mL/min Normal EST GFR - AA 112 Result Comment: GFR Calc LAB L501.1255 ml/min Normal Estimated CRCL 116.58 LAB L501.1300 10-20 RATIO Low BUN/CRE 9.2 LAB L501.2200 8.5-10 mg/dL .1 CA Normal 8.5 LAB L501.5300 136-14 mmol/L 5 NA Normal 138 LAB L501.5600 3.5-5. mmol/L 1 K Normal 4.1 LAB L501.5900 98-107 mmol/L CL Normal 104 LAB L501.6100 21.0-3 mmol/L 2.0 CO2 Normal 29.0 LAB L501.6200 5-15 GAP Normal 5 Performed By: #### L500.2500 #### [facility] [address] [place], [address] ALCOHOL, BLOOD Collected: 08/11/2018 Status: F Source: [place] ([facility])-SERUM 6:30 PM [facility] [place] REPOSITORY TYPE CODE TESTS RESULT OUT OF RANGE REFERENCE UNITS LAB L501.9100 mg/dL Normal SERUM 5.0 ETOH Result Comment: The serum:whole blood ethanol ratio is approximately 1.14 and varies slightly with hematocrit. Medical Alcohol reference interval and critical value in non-tolerant individuals; 50 - 100 Impairment 100 Intoxication 100 - 250 Severe Poisoning 250 - 400 Deep/possible fatal coma Performed By: #### L501.9100 #### [facility] [address] [place], [place], [address] CHIROPRACTIC REPORT Observed: 08/01/2018 Status: F Source: [place] 4:58 PM [facility] [place] REPOSITORY [facility] [address] [place] [id number] OFFICE VISIT Date of Service: 08/01/18 MR#: [id number] Acct: [id number] Name: CARLODONIS Nubia Rep #: [id number] : 1985 Provider: Jennifer Hayden D.C. Age/Sex: 33/M Location: [facility] Status: Signed Intake Vital Signs08/01/18 Height 6 ft 08/01/18 Weight: 220 lb 08/01/18 Body Mass Index (BMI) 29.8 Intake Visit Reasons: back pain Chief Complaint: neck and low back pain Is patient in pain?: Yes Allergies No Known Allergies Allergy (Verified 07/04/18 23:50) Medications Escitalopram Oxalate [Lexapro] 5 mg PO DAILY 06/22/18 [History Confirmed 07/04/18] Lurasidone HCl [Latuda] 60 mg PO DAILY 06/22/18 [History Confirmed 07/04/18] Lorazepam [Ativan] 1 mg PO DAILY PRN PRN #7 tab 06/26/18 [Rx Confirmed 07/04/18] [facility] Medical History Anxiety (Acute) Arthritis (Acute) Back pain (Acute) Limb weakness (Acute) Panic attacks (Acute) Surgical History Sedgwick teeth removed (Acute) Family History Other Anxiety Depression Social History Smoking Status: Never smoker alcohol intake: never HPI back pain : Chief Complaint: neck and low back pain Visit Number: 4 Details: DONIS FERRER is a 33 year old M who presents with decreased neck and low back pain. He states that his back pain is very minimal and only increases after exercising for a long period of time, or prolonged sitting. Today he rates his pain a 2/10 and describes it as as tight ache that bands across the neck, rotation of the neck and frequent looking down causes increased pain. Donis denies any numbness, tingling, or radiculopathy. Location: neck and low back pain Duration: intermittent Aggravating or associated factors: frequent sitting, bending, and rotation Relieving factors: chiro Pain Quality: aching, dull, cramping, sharp Exam Musc General: Yes normal gait, joint tenderness (C2, C5, C6, T1, T2, L3-L5) and decreased ROM; no normal posture (poor posture) Cervical Spine: loss of normal cervical lordosis (anterior head carriage), cervical muscular tenderness (slightly decreased), pain with cervical ROM, cervical spasm, cervical ROM abnormal Thoracic/Lumbar Spine: thoracic and lumbar spine normal to inspection, thoraco-lumbar ROM normal, pain with thoraco-lumbar ROM, paraspinal tenderness, thoraco-lumbar ROM limited, thoraco-lumbar spasm Office Procedures Chiropractic Treatments Procedures Manipulation: 3-4 regions (C2,C6,T2, L3,L5) Assessment AND Plan Problems 1. Segmental and somatic dysfunction of thoracic region M99.02 2. Segmental and somatic dysfunction of lumbar region M99.03 3. Segmental and somatic dysfunction of cervical region M99.01 Plan Continue with acute treatment plan. Orders Orders: Plan Detail Goals Decrease pain and spasm Follow Up 1 x week Coding Level of Care Code No Charge Diagnoses Segmental and somatic dysfunction of thoracic region M99.02 Segmental and somatic dysfunction of lumbar region M99.03 Segmental and somatic dysfunction of cervical region M99.01 Additional Codes Procedures - Manipulation: 3-4 regions ([id number]) 08/01/18 5997 <Electronically signed by Jennifer Hayden D.C.> Date Jennifer Hayden D.C. Cosigner Signature: Date (if applicable) CC: HISTORY AND Observed: 07/31/2018 Status: F Source: [facility] PHYSICAL-DICTATED 3:58 PM [facility] [address] [place] [address] NAME DONIS FERRER [facility] [id number] 1985 ADMIT 07/05/2018 HISTORY AND PHYSICAL IDENTIFICATION DATA Donis Anglin is a 33 years young, single, psychiatrically disabled male who was readmitted to [facility] for the second time as an emergency from [place], [place]. CHIEF COMPLAINT I have a constant fear that I am going to . I start to have palpitation and chest pain, and I sometimes feel I will be better off than go through this. PRESENT PSYCHIATRIC HISTORY Donis reported that he has been experiencing increasing panic attacks with chest pain, palpitation, and he has had constant fear of and dying. He reported that he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 07/18/2018 Noted Resolved Abnormal weight gain [R63.5] INVALID FOR*07/18/2018 More... Tobacco abuse disorder [Z72.0] INVALID FOR*07/18/2018 More... Recurrent major depression in partial remission*INVALID FOR* More... Dislocated IOL (intraocular lens) [T85.22XA] INVALID FOR* Vitamin D deficiency [E55.9] INVALID FOR* Generalized anxiety disorder [F41.1] INVALID FOR* More... Obesity, Class I, BMI 30-34.9 [E66.9] INVALID FOR* History of substance abuse [Z87.898] INVALID FOR* Medications Discontinued During This Encounter FLUoxetine (PROZAC) 20 mg capsule 30 c* 0 07/02/2018 07/18/2018 Route: ORAL Sig: Take 1 capsule by mouth once daily. Patient not taking: Reported on 07/18/2018 Disc: Reason for discontinue is not on file. Cyanocobalamin 50 mcg tab 30 t* 2 03/28/2018 07/18/2018 Route: ORAL Sig: Take 1 tablet by mouth once daily. Patient not taking: Reported on 07/18/2018 Disc: Reason for discontinue is not on file. pilocarpine (PILOCAR, ISOPTO CARPINE* 1 Sarwat* 1 12/31/2017 07/18/2018 Route: BOTH EYES Sig: Use 1 Drop in both eyes once daily. Patient not taking: Reported on 07/18/2018 Disc: Reason for discontinue is not on file. LORazepam (ATIVAN) 0.5 mg tab 10 t* 0 07/02/2018 07/18/2018 Class: Print RX Route: ORAL Sig: Take 1 tablet by mouth once daily as needed (anxiety) for up to 60 days. Patient taking differently: Take 1 mg by mouth once daily as needed (anxiety). Disc: Reason for discontinue is not on file. Disposition: Return in about 6 months (around 01/15/2019). Follow-up and Disposition History Recorded Encounter Status:Closed by JM LUO MD on 07/18/18 CNCO Observed: 07/18/2018 Status: COMPLETED Source: [place] 12:00 AM [facility] REPOSITORY Letter Text Dear Donis Ferrer: How to activate your [facility] [email or web address] Account 1. Visit the [email or web address] Signup page at [email or web address] 2. Identify yourself using your one-time use activation code: [email or web address] 3. Follow the on-screen prompts to choose your own secure username and password The following information will be necessary to access your account for the first time: Information needed for sign-up: Your custom activation code used one-time only for the initial account set-up. Your date of The last 4 digits of your social security number What to do next: Fill in the requested information on the Identify Yourself Form at [email or web address] , click Next. Create your login and password, choose a [email or web address] ID and password that will be easy for you to use, but impossible for anyone else to guess. Pick a security question that will assist you in the event you forget your password the next time you log-on. If you have difficulty activating your account, please call our [email or web address] helpline at [phone] or toll free at . We hope you enjoy using [email or web address]! Kindest Regards, [facility] [email or web address] Team 12 LEAD ELECTROCARDIOGRAM Observed: 07/09/2018 Status: F Source: [place] 1:44 PM [facility] REPOSITORY [facility] Cardiovascular Services [address] [place] [id number] 12 Lead EKG 07/05/18 0009 MR#: [id number] Acct: [id number] Name: DONIS FERRER Rep #: [id number] : 1985 33 From: Nahun Neville MD Attending Dr: Status: DEP ER Ordering Dr: Davi Gonzalez DO Date: 07/05/18 Location: ED Sex: M C Admitted: Test Reason : ANXIETY Blood Pressure : / mmHG Vent. Rate : 087 BPM Atrial Rate : 087 BPM P-R Int : 144 ms QRS Dur : 082 ms QT Int : 362 ms P-R-T Axes : 062 042 065 degrees QTc Int : 435 ms Normal sinus rhythm with sinus arrhythmia Normal ECG Confirmed by NAHUN NEVILLE ([id number]), online editor MADY VALENZUELA ([id number]) on 07/09/2018 1:43:49 PM Referred By: Raymond Lehman Confirmed By:NAHUN NEVILLE 07/09/18 1343 Date Nahun Neville MD CC: No Primary Care Physician; Jennifer Bailey DO; Davi Gonzalez Signed TSH Collected: 07/06/2018 Status: F Source: [facility] 7:24 AM [facility] REPOSITORY TYPE CODE TESTS RESULT OUT OF RANGE REFERENCE UNITS LAB TSH 0.320-5.000 uIU/mL Normal TSH 2.34 Result Comment: Samples from patients routinely receiving high dose biotin therapy (100-300 mg/day) may show falsely decreased results. Please correlate clinically. Performed By: #### TSH #### Unless otherwise noted, all testing performed by [facility] [address] [place], [place] [address] CLIA: [id number] Batch Plant Supervisor: Luis García M.D. EMERGENCY DEPARTMENT Observed: 07/05/2018 Status: F Source: [place] SUMMARY 4:13 AM [facility] REPOSITORY [facility] Medical Records Department [address] [place] [address] Emergency Department Summary 07/05/18 0003 MR#: [id number] Acct: [id number] Name: DONIS FERRER Rep #: [id number] : 1985 33 From: Davi Acevedo PCP: Care Physician, No Primary Status: REG ER - ER Visit Summary Date of Service: 07/05/18 Chief Complaint: Anxiety History of Present Illness: The patient is a 33 M increased anxiety prior to arrival. States was getting ready for bed having concerns of having a panic attack when it happened. Complains of dyspnea. No chest pains. No nausea or vomiting. States he took 1.5 tabs of Ativan and symptoms not improved. No cough. She is normally medications would help with symptoms. However this has not. No lip tingling or finger tingling. He is followed by counseling center. He was seen for same similar 8 days ago. He was told to follow-up with counseling center however has not. States currently feels I am going crazy.. Discussion about suicidal ideations, he states now he has thoughts. No specific plans. No homicidal ideations. Denies tobacco, alcohol, or illicit drug use. States he would like to see a counselor. Also complaint increased thirst and urine frequency. No history of diabetes. No dysuria or hematuria. Last meal was 2 hours ago. Physical Examination: General: Alert and oriented 3, no acute distress HEENT: Normocephalic, atraumatic. Moist mucosa membranes Neck: supple, nontender. Cardiovascular: Regular rate and rhythm, no murmurs Respiratory: Normal breath sounds, symmetric, no distress Abdomen: Soft, nontender, nondistended Extremities: Nontender, no edema, pulses intact 4 Neuro: no focal neurological deficits. Psych: Positive suicidal ideation. No homicidal ideation. Test Results: EKG sinus rate of [address] changes. Isolated T-wave inversion in aVL. Two-view chest x-ray negative. CBC chemistry liver enzymes normal. Urine no leukocytes however no other findings. Tox screen negative. Alcohol negative. Emergency Department Course and Treatment: Patient complains of dyspnea, however pulse ox normal, respiratory rate is normal. Lung sounds are normal. EKG chest x-ray normal. During discussed with anxiety, he did state he had suicidal thoughts with no plan with me. He went see a counselor. Laboratory workup obtained with toxin alcohol negative. Patient medically cleared. He was evaluated by crisis, states increasing suicidal thoughts and the plan of hanging. Patient had a pink slip filled out by crisis. He is excepted to [facility] in [place]. Treatment Plan: [] Disposition: Transfer to [facility] Impression: 1. Suicidal ideation with plan This note was generated with [employer] dictation software. It may contain incorrect words, spelling, and punctuation that were not noted in review of the chart prior to signing ED Disposition - Plan for ED Patient: Disposition: Psychiatric Hospital or Unit Chief Complaint: Anxiety Diagnosis: Suicidal ideation Referrals: Jennifer Bailey DO [Family Provider] - What to do if you have Problems For any increased pain, shortness of breath, bleeding, nausea or vomiting, chest pain, or any unexpected problems, contact your Primary Care Provider. Call [facility] ([phone]) or report to the closest Emergency Room. Call 911 if necessary. 07/05/18 0413 <Electronically signed by Davi Acevedo> Date Davi Acevedo Maria Estherraven Signature (If Indicated): Date CC: No Primary Care Physician; Jennifer Bailey, DO CBC W/DIFF, AUTOMATED Collected: 07/05/2018 Status: F Source: [place] 12:15 AM [facility] REPOSITORY TYPE CODE TESTS RESULT OUT OF RANGE REFERENCE UNITS LAB L100.1000 4.4-11.0 K/mm3 Normal WBC 8.0 LAB L100.1200 4.6-6.2 M/mm3 Normal RBC 4.71 LAB L100.1300 13.0-16.5 g/dl Normal HGB 14.8 LAB L100.1400 40-54 % Normal HCT 42.9 LAB L100.1500 80-94 fL Normal MCV 91.1 LAB L100.1600 27.0-32.0 pg Normal MCH 31.4 LAB L100.1700 32-36 g/gl Normal MCHC 34.5 LAB L100.1810 11.6-14.6 % Normal RDW CV 12.9 LAB L100.1820 35.1-43.9 fl Normal RDW SD 42.6 LAB L100.1900 150-450 K/mm3 Normal PLT 202 LAB L100.2000 6.2-12.0 fl Normal MPV 10.9 LAB L100.2100 47-70 % Normal NEUT% 68.1 LAB L100.2200 19-41 % Normal LY% 22.7 LAB L100.2300 0-10 % Normal MONO% 6.4 LAB L100.2400 0-5 % Normal EO% 2.0 LAB L100.2500 0-1 % Normal BASO% 0.5 LAB L100.2550 0.0-0.9 % Normal IM GRAN % 0.300 Result Comment: IG% - Immature Granulocytes (promyelocytes, myelocytes and metamyelocytes) > 1% indicates that a LEFT SHIFT is Present. LAB L100.2620 2.0-7.7 X10 3/uL Normal Absolute Neut 5.4 LAB L100.2720 0.83-4.51 X10 3/ul Normal Absolute Lymph 1.81 Performed By: #### L100.0100 #### [facility] [address] [place], [place], [address] COMPREHENSIVE METABOLIC Collected: 07/05/2018 Status: F Source: [place] [facility] 12:15 AM [facility] REPOSITORY TYPE CODE TESTS RESULT OUT OF RANGE REFERENCE UNITS LAB L501.0100 74-106 mg/dL Normal GLU 104 Result Comment: Fasting Glucose result from 100 to 125 mg/dL suggests IMPAIRED HOMEOSTASIS per A.D.A. criteria. Please note revised GLUCOSE reference range effective 2017. LAB L501.1000 7-18 mg/dL Normal BUN 7 LAB L501.1100 0.70-1.30 mg/dL Normal CREAT,SERUM 0.98 Result Comment: The validity of the calculated GFR AND GFRAA in patients over 70 years has not been determined. Clinical correlation is essential. LAB L501.1110 >60 mL/min Normal EST GFR 94 Result Comment: Non- GFR Calc LAB L501.1115 >60 mL/min Normal EST GFR - AA 113 Result Comment: GFR Calc LAB L501.1255 ml/min Normal Estimated CRCL 116.58 LAB L501.1300 10-20 RATIO Low BUN/CRE 7.2 LAB L501.1500 6.4-8. g/dL 2 T PROT Normal 7.3 LAB L501.1800 3.2-5. g/dL 0 ALB Normal 3.9 LAB L501.1950 2.2-4. g/dL 2 GLOB Normal 3.4 LAB L501.2000 0.9-2. RATIO 4 A/G Normal 1.1 LAB L501.2200 8.5-10 mg/dL .1 CA Normal 8.7 LAB L501.4100 15-37 U/L Low AST 11 LAB L501.4305 45-117 U/L ALK P Normal 79 LAB L501.4405 16-61 U/L ALT Normal 23 LAB L501.4600 0.20-1 mg/dL .00 T BILI Normal 0.30 LAB L501.5300 136-14 mmol/L 5 NA Normal 139 LAB L501.5600 3.5-5. mmol/L Low 1 K 3.4 LAB L501.5900 98-107 mmol/L CL Normal 104 LAB L501.6100 21.0-3 mmol/L 2.0 CO2 Normal 26.0 LAB L501.6200 5-15 GAP Normal 9 Performed By: #### L500.4050 #### [facility] [address] [place], [address] ALCOHOL, BLOOD Collected: 07/05/2018 Status: F Source: [place] (MEDICAL)-SERUM 12:15 AM [facility] REPOSITORY TYPE CODE TESTS RESULT OUT OF RANGE REFERENCE UNITS LAB L501.9100 mg/dL Normal SERUM 5.0 ETOH Result Comment: The serum:whole blood ethanol ratio is approximately 1.14 and varies slightly with hematocrit. Medical Alcohol reference interval and critical value in non-tolerant individuals; 50 - 100 Impairment 100 Intoxication 100 - 250 Severe Poisoning 250 - 400 Deep/possible fatal coma Performed By: #### L501.9100 #### [facility] [address] [place], [address] URINE DRUG SCREEN Collected: 07/05/2018 Status: F Source: [place] (VISTA) 12:14 AM [facility] REPOSITORY TYPE CODE TESTS RESULT OUT OF RANGE REFERENCE UNITS LAB L505.0075 TO BE Normal CONFIRMED Result Comment: CONFIRMATORY TESTING FOR ALL POSITIVE URINE DRUG SCREEN RESULTS WILL ONLY BE SENT OUT UPON PHYSICIAN ORDER. VISTA Urine Drug Screen methods provide only preliminary analytical test results. A more specific alternate chemical method must be used in order to obtain a confirmed analytical result. Gas chromatography/mass spectrometery (GC/MS) is the preferred confirmatory method. Clinical consideration and professional judgement should be applied to any drug of abuse test result, particularly when preliminary positive results are used. URINE TCA TESTING MUST BE ORDERED SEPARATELY. USE TEST MNEMONIC: [facility] LAB L505.5005 VISTA UDS PH 6 Normal LAB L505.5015 <1000 ng/mL AMPHETAMINES Normal NEGATIVE LAB L505.5025 < 200 ng/mL BARBITIURATES Normal NEGATIVE LAB L505.5035 < 200 ng/mL BENZODIAZIPINE Normal NEGATIVE LAB L505.5045 < 300 ng/mL COCAINE Normal NEGATIVE LAB L505.5055 < 500 ng/mL ECSTACY Normal NEGATIVE LAB L505.5065 < 300 ng/mL METHADONE Normal NEGATIVE LAB L505.5075 < 300 ng/mL OPIATES Normal NEGATIVE LAB L505.5085 < 25 ng/mL PCP Normal NEGATIVE LAB L505.5095 < 50 ng/mL THC Normal NEGATIVE Performed By: #### L505.5000 #### [facility] [address] [place], [address] URINALYSIS, COMPLETE Collected: 07/05/2018 Status: F Source: [place] 12:14 AM [facility] REPOSITORY Order Comment: Order Date: 07/05/18 How was Urine Obtained? CLEAN CATCH TYPE CODE TESTS RESULT OUT OF RANGE REFERENCE UNITS LAB L400.3000 Yellow COLOR Normal Yellow LAB L400.3050 Clear Normal CLARITY Clear LAB L400.3200 Normal mg/dl Normal GLUCOSE, UR Normal LAB L400.3300 Negative mg/dL Normal BILIRUBIN URINE Negative LAB L400.3400 Negative mg/dl Normal KETONE UR Negative LAB L400.3465 1.002-1.030 Normal SP.GR. DIPSTX 1.015 LAB L400.3550 5.0 - 8.0 pH UR Normal 6.5 LAB L400.3600 Negative mg/dl PROT Normal DIPSTX Negative LAB L400.3700 Normal mg/dl Normal UROBILI Normal LAB L400.3750 Negative Normal NITRITE UR Negative LAB L400.3780 Negative /ul Normal OCCULT BLOOD-UR Negative LAB L400.3800 Negative /ul High LEUK 25 ESTERASE LAB L400.4050 0-5 /hpf WBC 0 Normal SEEN LAB L400.4100 0-5 /hpf 0 Normal RBC-UA SEEN LAB L400.4150 0-5 /hpf SQUAM 0 Normal EPI SEEN LAB L400.4300 None Seen /hpf 0 Normal BACTERIA SEEN LAB L400.4350 <or=2+ /hpf 0 Normal MUCUS, URINE SEEN Performed By: #### L400.0001 #### [facility] [address] [place], [address] CHEST PA AND LATERAL Observed: 07/05/2018 Status: F Source: [place] 12:03 AM [facility] REPOSITORY [facility] Imaging Services [address] [place] [address] Chest PA and Lateral MR#: [id number] Acct: [id number] Name: DONIS FERRER Rep #: [id number] : 1985 M 33 From: Evgeny Cortez MD PCP: Care Physician, No Primary Status: REG ER Study: Chest PA and Lateral Date of Exam: 07/05/18 Exam# [id number] Ordering Dr: Davi Gonzalez DO STUDY: X-RAY CHEST REASON FOR EXAM: Male, 33 years old. Shortness of breath TECHNIQUE: 2 views COMPARISON: None. FINDINGS: The lungs are clear and expanded. There is no demonstrated pleural abnormality. Normal size heart. Normal mediastinum and kishan. Normal visualized pulmonary arteries. Normal visualized aortic arch and descending thoracic aorta. Normal visualized thoracic spine. Normal visualized ribs, clavicles, and shoulders. There is no demonstrated abnormality of the visualized soft tissue structures of the upper abdomen. RAD/Chest PA and Lateral IMPRESSION: Normal x-ray examination of the chest. No acute findings in the lungs Electronically Signed: Evgeny Cortez, at 0:39 EDT Tel , Service support , CC: No Primary Care Physician; Davi Gonzalez Power Project Manager: Signed CHIROPRACTIC REPORT Observed: 07/02/2018 Status: F Source: [place] 2:59 PM [facility] [address] [place] [address] OFFICE VISIT Date of Service: 07/01/18 MR#: [id number] Acct: [id number] Name: DONIS FERRER Rep #: [id number] : 1985 Provider: Jennifer Hayden D.C. Age/Sex: 33/M Location: [facility] Status: Signed Intake Vital Signs07/01/18 Height 6 ft 07/01/18 Weight: 218 lb 07/01/18 Body Mass Index (BMI) 29.5 Intake Visit Reasons: neck pain Is patient in pain?: Yes Allergies No Known Allergies Allergy (Verified 06/26/18 15:47) Medications Escitalopram Oxalate [Lexapro] 5 mg PO DAILY 06/22/18 [History Confirmed 06/26/18] Lurasidone HCl [Latuda] 60 mg PO DAILY 06/22/18 [History Confirmed 06/26/18] Benztropine [Cogentin] 0.5 mg PO BID 06/26/18 [History Confirmed 06/26/18] Lorazepam [Ativan] 1 mg PO DAILY PRN PRN #7 tab 06/26/18 [Rx] PFSH Medical History Anxiety (Acute) Arthritis (Acute) Back pain (Acute) Limb weakness (Acute) Panic attacks (Acute) Surgical History [place] teeth removed (Acute) Family History Other Anxiety Depression Social History Smoking Status: Never smoker alcohol intake: never HPI neck pain : Chief Complaint: neck pain Visit Number: 2 Details: DONIS FERRER is a 33 year old M who presents with increased neck pain. He states that recently he had a panic attack causing increased neck pain and tension. Today the patient rates his pain a 4/10 and describes it as a tight and sharp ache that radiates across the neck and at times down the back. Donis also complains of low back pain described as a tight ache that comes and goes. The patient denies any numbness, tingling, or radiculopathy. Location: neck and low back Duration: constant Aggravating or associated factors: rotation, looking down, and panic attacks Pain Quality: aching, dull, cramping, sharp Exam Musc General: Yes normal gait, joint tenderness (C2, C5, C6, T1, T2, L3-L5) and decreased ROM; no normal posture (poor posture) Cervical Spine: loss of normal cervical lordosis (anterior head carriage), cervical muscular tenderness left lower: paracervical muscle and trapezius, pain with cervical ROM with rotation to left and with lateral flexion to right, cervical spasm left lower: trapezius and paracervical muscles, cervical ROM abnormal lateral flexion to the right decreased and rotation to left decreased Thoracic/Lumbar Spine: thoracic and lumbar spine normal to inspection, thoraco-lumbar ROM normal, pain with thoraco-lumbar ROM with forward flexion, paraspinal tenderness bilaterally in the lower lumbar and in the mid lumbar and on the left greater than right (upper thoracic), thoraco-lumbar ROM limited with forward flexion, thoraco- lumbar spasm bilaterally in the lower lumbar and on the left greater than right (trap) Office Procedures Chiropractic Treatments Procedures Manipulation: 3-4 regions (C2, C5, T1, T4, L3,L5) Assessment AND Plan 1. Segmental and somatic dysfunction of thoracic region M99.02 Orders Orders: 2. Segmental and somatic dysfunction of lumbar region M99.03 Orders Orders: 3. Segmental and somatic dysfunction of cervical region M99.01 Orders Orders: Plan Detail Goals Decrease pain and spasm Follow Up 2 x week Coding Level of Care Code No Charge Diagnoses Segmental and somatic dysfunction of thoracic region M99.02 Segmental and somatic dysfunction of lumbar region M99.03 Segmental and somatic dysfunction of cervical region M99.01 Additional Codes Procedures - Manipulation: 3-4 regions (57129) 07/02/18 1459 <Electronically signed by Jennifer Hayden D.C.> Date Jennifer Hayden D.C. Cosigner Signature: Date (if applicable) CC: PROGRESS Observed: 07/02/2018 Status: COMPLETED Source: [place] 2:43 PM [facility] REPOSITORY [facility] ID: [id number] Author: Whitley (Computer Systems Integrator) Older Service: (none) Author Type: Nurse Practitioner Type: Progress Notes Filed: 07/02/2018 3:12 PM Note Text: CC: Patient presents with: [facility] ER follow up: panic attack-given rx for Lorazepam at ER HPI Donis Ferrer is a 33 year old male who presents today for ER follow-up. Facility: [facility] Date of visit: 06/26/18 Reason for visit: panic attack Hospital course: Physical exam benign. No further work-up Diagnosis: Panic attack Discharge: Given 5 Ativan with no refill, advised to follow- up with psychiatrist Current symptoms: Continues to be very anxious and having panic attacks frequently. Taking Ativan daily which does help. Currently prescribed Latuda as mood stabilizer but is weaning off of Lexapro. Read online about potential drug interactions between Lexapro and Vistaril that he was recently prescribed. Saw there is a potentially fatal drug interaction between Lexapro and Vistaril. He informed his psychiatrist of this who told him he should wean off of it. Currently taking 5 mg daily for one more week, then done. Requesting a different antidepressant. In the process of finding new psychiatrist because he does not like his current one. States she is not a good psychiatrist because [facility] lot [facility] patients were there. Denies SI or HI. REVIEW OF SYSTEMS See HPI PAST MEDICAL HISTORY Diagnosis Date - Eye disease intraoccular lenses slipping in right eye PAST SURGICAL HISTORY Procedure Laterality Date - EYE SURGERY PROCEDURE intraoccular lenses placement in both eyes - REM LENS MATERIAL; PPA W/WO VITRECT Right 05/10/2017 ALLERGIES Gabapentin MEDICATIONS Cholecalciferol, Vitamin D3, 1,000 unit cap Take 1 capsule by mouth once daily. Cyanocobalamin 50 mcg tab Take 1 tablet by mouth once daily. hydrOXYzine HCl (ATARAX) 25 mg tablet Take 1 tablet by mouth twice daily as needed. pilocarpine (PILOCAR, ISOPTO CARPINE) 1 % ophthalmic solution Use 1 Drop in both eyes once daily. gabapentin (NEURONTIN) 800 mg tablet Take 800 mg by mouth three times daily. FAMILY HISTORY Problem Relation Age of Onset - Cataract Mother - other (schizophrenia) Mother - other (bipolar) Mother - other (depression) Mother - Cataract Maternal Grandmother - Cataract Maternal Grandfather Social History Substance Use Topics - Smoking status: Current Every Day Smoker Packs/day: 0.50 Years: 12.00 Types: Cigarettes - Smokeless tobacco: Never Used - Alcohol use No PHYSICAL EXAM BP 118/80 Pulse 94 Temp (!) 35.9 ?C (96.6 ?F) (Temporal Artery) Resp 16 Wt 98 kg (216 lb) SpO2 96% BMI 29.42 kg/m? Appearance: well dressed well groomed, cooperative and pleasant Behavior: Tense and fidgeting, bouncing legs up and down continuously. Argumentative. Speech: fast Mood: anxious Affect: constricted Thought Content: preoccupations with dying from medications Intelligence level: below normal Insight: poor Judgment:poor ASSESSMENT/PLAN: 1. Anxiety disorder, unspecified type - ICD9: 300.00, ICD10: F41.9 (primary diagnosis) Continue with Latuda as prescribed Prescribed Prozac per patient request, start the day after last dose of Lexapro - LORAZEPAM 0.5 MG TABLET daily as needed. To be used sparingly as needed, advised patient no refills. Discussed potential for overdose, abuse and addiction; patient verbalized understanding. PDMP website checked and validated. All prescriptions have been APPROPRIATELY filled. No suspicious activity was identified. 07/02/2018 by Whitley Flores APRN.CNP Patient advised he needs to find a new psychiatrist [facility] for medication management. States he is on a cancellation list at [facility] but does not have scheduled appointment. Encouraged to call back and schedule appointment Follow-up to establish care in two weeks, sooner as needed 2. Panic attacks - ICD9: 300.01, ICD10: F41.0 As above - LORAZEPAM 0.5 MG TABLET Prescription instructions reviewed with patient as applicable. Potential red flag symptoms discussed with the patient. Reviewed appropriate action plan to take if red flag symptoms occur. Patient agreeable to treatment plan. During this patient visit I have spent approximately 30 minutes in counseling regarding treatment options, medications and coordinating care. Whitley Flores APRN.CNP CNOV Observed: 07/02/2018 Status: COMPLETED Source: [place] 2:40 PM [facility] REPOSITORY Office Visit (INTMWS) DONIS FERRER ([id number]) 1985 M Date Time Provider Department 07/02/18 2:40 PM WHITLEY FLORES (ANTHROPOLOGICAL LINGUIST) INTMWS During your visit today, we recorded the following information about you: Temperature Pulse Respiration Blood pressure 96.6 degrees 94/minute 16/minute 118/80 Weight 98 kg Whitley Older, [employer] CUTTER.TUCKER 07/02/2018 3:12 PM Signed CC: Patient presents with: [facility] ER follow up: panic attack-given rx for Lorazepam at ER HPI Donis Ferrer is a 33 year old male who presents today for ER follow-up. Facility: [facility] Date of visit: 06/26/18 Reason for visit: panic attack Hospital course: Physical exam benign. No further work-up Diagnosis: Panic attack Discharge: Given 5 Ativan with no refill, advised to follow- up with psychiatrist Current symptoms: Continues to be very anxious and having panic attacks frequently. Taking Ativan daily which does help. Currently prescribed Latuda as mood stabilizer but is weaning off of Lexapro. Read online about potential drug interactions between Lexapro and Vistaril that he was recently prescribed. Saw there is a potentially fatal drug interaction between Lexapro and Vistaril. He informed his psychiatrist of this who told him he should wean off of it. Currently taking 5 mg daily for one more week, then done. Requesting a different antidepressant. In the process of finding new psychiatrist because he does not like his current one. States she is not a good psychiatrist because [facility] lot [facility] patients were there. Denies SI or HI. REVIEW OF SYSTEMS See [facility] PAST MEDICAL HISTORY Diagnosis Date - Eye disease intraoccular lenses slipping in right eye PAST SURGICAL HISTORY Procedure Laterality Date - EYE SURGERY PROCEDURE intraoccular lenses placement in both eyes - REM LENS MATERIAL; PPA W/WO VITRECT Right 05/10/2017 ALLERGIES Gabapentin MEDICATIONS Cholecalciferol, Vitamin D3, 1,000 unit cap Take 1 capsule by mouth once daily. Cyanocobalamin 50 mcg tab Take 1 tablet by mouth once daily. hydrOXYzine HCl (ATARAX) 25 mg tablet Take 1 tablet by mouth twice daily as needed. pilocarpine (PILOCAR, ISOPTO CARPINE) 1 % ophthalmic solution Use 1 Drop in both eyes once daily. gabapentin (NEURONTIN) 800 mg tablet Take 800 mg by mouth three times daily. FAMILY HISTORY Problem Relation Age of Onset - Cataract Mother - other (schizophrenia) Mother - other (bipolar) Mother - other (depression) Mother - Cataract Maternal Grandmother - Cataract Maternal Grandfather Social History Substance Use Topics - Smoking status: Current Every Day Smoker Packs/day: 0.50 Years: 12.00 Types: Cigarettes - Smokeless tobacco: Never Used - Alcohol use No PHYSICAL EXAM BP 118/80 Pulse 94 Temp (!) 35.9 ?C (96.6 ?F) (Temporal Artery) Resp 16 Wt 98 kg (216 lb) SpO2 96% BMI 29.42 kg/m? Appearance: well dressed well groomed, cooperative and pleasant Behavior: Tense and fidgeting, bouncing legs up and down continuously. Argumentative. Speech: fast Mood: anxious Affect: constricted Thought Content: preoccupations with dying from medications Intelligence level: below normal Insight: poor Judgment:poor ASSESSMENT/PLAN: 1. Anxiety disorder, unspecified type - ICD9: 300.00, ICD10: F41.9 (primary diagnosis) Continue with Latuda as prescribed Prescribed Prozac per patient request, start the day after last dose of Lexapro - LORAZEPAM 0.5 MG TABLET daily as needed. To be used sparingly as needed, advised patient no refills. Discussed potential for overdose, abuse and addiction; patient verbalized understanding. PDMP website checked and validated. All prescriptions have been APPROPRIATELY filled. No suspicious activity was identified. 07/02/2018 by Whitley Flores APRN.ANTHROPOLOGICAL LINGUIST Patient advised he needs to find a new psychiatrist [facility] for medication management. States he is on a cancellation list at [facility] but does not have scheduled appointment. Encouraged to call back and schedule appointment Follow-up to establish care in two weeks, sooner as needed 2. Panic attacks - ICD9: 300.01, ICD10: F41.0 As above - LORAZEPAM 0.5 MG TABLET Prescription instructions reviewed with patient as applicable. Potential red flag symptoms discussed with the patient. Reviewed appropriate action plan to take if red flag symptoms occur. Patient agreeable to treatment plan. During this patient visit I have spent approximately 30 minutes in counseling regarding treatment options, medications and coordinating care. Whitley Flores APRN.CNP Referring Provider: SELF [[id number]] Allergies As of Date: 07/02/2018 Noted Allergy Reaction GABAPENTIN 07/02/2018 5 - Intolerance Comments: Weird thoughts Date Reviewed: 07/02/2018 Reviewed by: Lazara Silva In Service Coordinator - Fully Assessed Reason for Visit: [facility] ER follow up [Other] Cmt: panic attack-given rx for Lorazepam at ER Primary Visit Diagnosis:Anxiety disorder, unspecified type [F41.9] Other Visit Diagnosis:Panic attacks [F41.0] Order(s):FLUoxetine (PROZAC) 20 mg capsuleTake 1 capsule by mouth once daily.Disp: 30 capsuleRfl: 0 LORazepam (ATIVAN) 0.5 mg tabTake 1 tablet by mouth once daily as needed (anxiety) for up to 60 days.Disp: 10 tabletRfl: 0 Prescriptions as of 07/02/2018 Sig: CHOLECALCIFEROL (VITAMIN D3) * Take 1 capsule by mouth once * CYANOCOBALAMIN (VIT B-12) 50 * Take 1 tablet by mouth once d* HYDROXYZINE HCL 25 MG TABLET Take 1 tablet by mouth twice * PILOCARPINE 1 % EYE DROPS Use 1 Drop in both eyes once * FLUOXETINE 20 MG CAPSULE Take 1 capsule by mouth once * LORAZEPAM 0.5 MG TABLET Take 1 tablet by mouth once d* Problem List As Of Date 07/02/2018 Noted Resolved Abnormal weight gain [R63.5] INVALID FOR* More... Tobacco abuse disorder [Z72.0] INVALID FOR* More... Recurrent major depression in partial remission*INVALID FOR* Dislocated IOL (intraocular lens) [T85.22XA] INVALID FOR* Vitamin D deficiency [E55.9] INVALID FOR* Prescriptions ordered this encounter Disp Refills Start End FLUOXETINE 20 MG CAPSULE 30 c* 0 07/02/2018 Route: ORAL Sig: Take 1 capsule by mouth once daily. LORAZEPAM 0.5 MG TABLET 10 t* 0 07/02/2018 08/31/2018 Class: Print RX Route: ORAL Sig: Take 1 tablet by mouth once daily as needed (anxiety) for up to 60 days. Medications Discontinued During This Encounter gabapentin (NEURONTIN) 800 mg tablet 07/02/2018 Class: Historical Med Route: ORAL Sig: Take 800 mg by mouth three times daily. Disc: Discontinued by Patient Encounter Status:Closed by WHITLEY FLORES CNP on 07/02/18 CHIROPRACTIC REPORT Observed: 07/01/2018 Status: F Source: [place] 8:59 AM [facility] [address] [place] [id number] OFFICE VISIT Date of Service: 06/25/18 MR#: [id number] Acct: [id number] Name: DONIS FERRER Rep #: [id number] : 1985 Provider: Jennifer Hayden D.C. Age/Sex: 33/M Location[facility] Status: Signed Intake Vital Signs06/25/18 Height 6 ft 06/25/18 Weight: 220 lb 06/25/18 Body Mass Index (BMI) 29.8 Intake Visit Reasons: back pain Chief Complaint: neck and low back pain Is patient in pain?: Yes Allergies No Known Allergies Allergy (Verified 06/26/18 15:47) Medications Escitalopram Oxalate [Lexapro] 5 mg PO DAILY 06/22/18 [History Confirmed 06/26/18] Lurasidone HCl [Latuda] 60 mg PO DAILY 06/22/18 [History Confirmed 06/26/18] Benztropine [Cogentin] 0.5 mg PO BID 06/26/18 [History Confirmed 06/26/18] Lorazepam [Ativan] 1 mg PO DAILY PRN PRN #7 tab 06/26/18 [Rx] PFSH Medical History Anxiety (Acute) Arthritis (Acute) Back pain (Acute) Limb weakness (Acute) Panic attacks (Acute) Surgical History [place] teeth removed (Acute) Family History Other Anxiety Depression Social History Smoking Status: Current every day smoker alcohol intake: never HPI back pain : Chief Complaint: neck and low back pain Visit Number: 1 Referral source: ad Details: DONIS FERRER is a 33 year old M who presents with neck and L sided low back pain. He states that the pain has been ongoing for roughly one year and seems to increase when having a panic attack. The patient has been doing PT which is helping with the mid back pain, although he is still noticing a increase in pain when sitting, bending and walking. Today Donis rates his pain 1/10, when sitting described as a sore and tight ache banding across the low back, along with the neck. He states that the L side is worse, and can also feel his heart beat often when laying flat. At its worst the pain is rated a 6/10 and described as a sharp pain prolonged sitting causes the pain to increase. Donis denies any numbness or tingling Onset: 08/01/17 Location: neck and low back Duration: constant Aggravating or associated factors: sitting, bending and walking Relieving factors: PT and laying down Pain Quality: aching, dull, cramping, sharp Exam Musc General: Yes normal gait, joint tenderness (C2, C5, C6, T1, T2, L3-L5) and decreased ROM; no normal posture (poor posture) Cervical Spine: loss of normal cervical lordosis (anterior head carriage), cervical muscular tenderness left lower: paracervical muscle and trapezius, pain with cervical ROM with rotation to left and with lateral flexion to right, cervical spasm left lower: trapezius and paracervical muscles, cervical ROM abnormal lateral flexion to the right decreased and rotation to left decreased Thoracic/Lumbar Spine: thoracic and lumbar spine normal to inspection, thoraco-lumbar ROM normal, pain with thoraco-lumbar ROM with forward flexion, paraspinal tenderness bilaterally in the lower lumbar and in the mid lumbar and on the left greater than right (upper thoracic), thoraco-lumbar ROM limited with forward flexion, thoraco- lumbar spasm bilaterally in the lower lumbar and on the left greater than right (trap) Neuro General: alert, awake, oriented x3, gait normal, normal light touch, pain and propioception, no focal motor deficits Ortho Test CERVICAL Compression pain: Negative Distraction pain: relief Korey's pain: Negative Valsalvas: Negative Shoulder depression pain: Left THORACIC Toure: Negative LUMBAR Kemps: Negative Valsalvas: Negative SLR: Negative Iliac Compression: Positive Assessment AND Plan Problems 1. Segmental and somatic dysfunction of cervical region M99.01 2. Segmental and somatic dysfunction of lumbar region M99.03 3. Segmental and somatic dysfunction of thoracic region M99.02 Plan Follow up 1-2x/wk in addition to PT to address on going complaints. Plan Detail Goals Decrease pain and spasm Follow Up 1-2x/wk/3wks Coding Level of Care Code Off vis,new,level 3 Diagnoses Segmental and somatic dysfunction of cervical region M99.01 Segmental and somatic dysfunction of lumbar region M99.03 Segmental and somatic dysfunction of thoracic region M99.02 07/01/18 0859 <Electronically signed by Jennifer Hayden D.C.> Date Jennifer Julian Signature: Date (if applicable) CC: EMERGENCY DEPARTMENT Observed: 06/26/2018 Status: F Source: [place] SUMMARY 4:31 PM [facility] REPOSITORY [facility] Medical Records Department [address] [place] [address] Emergency Department Summary 06/26/18 1558 MR#: [id number] Acct: [id number] Name: DONIS FERRER Rep #: [id number] : 1985 33 From: Frank Olmos MD PCP: Jennifer Bailey DO Status: REG ER - ER Visit Summary Date of Service: 06/26/18 Chief Complaint: Panic attack History of Present Illness: The patient is a 33 M 3 of anxiety, panic attacks and psychiatric illness. He was admitted to the psychiatric medicines at time. Within the last hour he started having a panic attacks. Feels very anxious. He denies any vomiting, diarrhea or fever. No chest pain. Physical Examination: Well appearing male. Vital signs are stable and afebrile. No acute distress. Pulse ox 9 9% on room air no signs of hypoxia. H EENT exam right eye has had lens implant surgery. His left eye is irregular. As is the pupil on the right. Extraocular motions of the left eye are regular. No facial droop. This is all chronic. Neck nontender. Lungs clear to auscultation bilaterally. Heart regular rate and rhythm no murmur rate about 100. Abdomen soft nontender. Normal bowel sounds no peritoneal signs. Moving all 4 extremities. Calves are nontender without edema or cords. 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 Normal dorsi plantarflexion. Neurologically he is awake and alert with no focal motor deficits other than the irregular extraocular movements of his left eye which are chronic. Test Results: None Emergency Department Course and Treatment: Patient has a history of anxiety and panic attacks. This is similar to his prior episodes. He will be treated with p.o. Ativan here reassessed and discharged home. Treatment Plan: Ativan as needed as needed #5 no refill. Follow-up with a counseling center. Disposition: Discharge Impression: Acute anxiety with a history of panic attacks This note was generated with [employer] dictation software. It may contain incorrect words, spelling, and punctuation that were not noted in review of the chart prior to signing ED Disposition - Plan for ED Patient: Chief Complaint: Anxiety Referrals: Jennifer Bailey DO [Primary Care Provider] - What to do if you have Problems For any increased pain, shortness of breath, bleeding, nausea or vomiting, chest pain, or any unexpected problems, contact your Primary Care Provider. Call [facility] ([phone]) or report to the closest Emergency Room. Call 911 if necessary. 06/26/18 1631 <Electronically signed by Frank Olmos MD> Date Frank Olmos MD Cosigner Signature (If Indicated): Date CC: Jennifer Bailey DO DISCHARGE INSTRUCTION Observed: 06/26/2018 Status: F Source: [place] 4:31 PM [facility] REPOSITORY [facility] Medical Records Department [address] [place] [id number] Discharge Instruction 06/26/18 1601 MR#: [id number] Acct: [id number] Name: MEI FERRERON Nubia Rep #: [id number] : 1985 33 From: Frank Olmos MD PCP: Jennifer Bailey DO Status: REG ER ED Disposition - Plan for ED Patient: Disposition: Home or Assisted Living Chief Complaint: Anxiety Instructions: ED Panic Attack Prescriptions: Lorazepam [Ativan] 1 mg PO DAILY PRN PRN #7 tab PRN Reason: panic attack Referrals: Jennifer Bailey DO [Primary Care Provider] - As Needed Counseling[facility]Center [GROUP OF PHYSICIANS] - As soon as possible Additional Instructions: Return if feeling worse. Follow-up with a counseling center. Ativan as needed for panic attacks or anxiety. Continue your current medications. What to do if you have Problems For any increased pain, shortness of breath, bleeding, nausea or vomiting, chest pain, or any unexpected problems, contact your Primary Care Provider. Call [facility] ([phone]) or report to the closest Emergency Room. Call 911 if necessary. 06/26/18 1631 <Electronically signed by Frank Olmos MD> Date Frank Olmos MD Cosigner Signature (If Indicated): Date CC: Jennifer Bailey DO EMERGENCY DEPARTMENT Observed: 06/22/2018 Status: F Source: [place] SUMMARY 2:48 AM [facility] REPOSITORY [facility] Medical Records Department [address] [place] [address] Emergency Department Summary 06/22/18 0247 MR#: [id number] Acct: [id number] Name: DONIS FERRER Rep #: [id number] : 1985 33 From: Pete Encinas MD PCP: Jennifer Bailey DO Status: REG ER - ER Visit Summary Date of Service: 06/22/18 Chief Complaint: [] History of Present Illness: The patient is a 33 M [] Physical Examination: [] Test Results: [] Emergency Department Course and Treatment: [] Treatment Plan: [] Disposition: [] Impression: [] This note was generated with [employer] dictation software. It may contain incorrect words, spelling, and punctuation that were not noted in review of the chart prior to signing ED Disposition - Plan for ED Patient: Disposition: Home or Assisted Living Chief Complaint: Anxiety Instructions: ED Sprain Strain Neck, ED Panic Attack Prescriptions: Lorazepam [Ativan] 0.5 mg PO DAILY PRN #1 tab PRN Reason: Anxiety Referrals: Jennifer Bailey DO [Primary Care Provider] - What to do if you have Problems For any increased pain, shortness of breath, bleeding, nausea or vomiting, chest pain, or any unexpected problems, contact your Primary Care Provider. Call [facility] ([phone]) or report to the closest Emergency Room. Call 911 if necessary. 06/22/18 0248 <Electronically signed by Pete Encinas MD> Date Pete Encinas MD Cosigner Signature (If Indicated): Date CC: Jennifer Bailey DO EMERGENCY DEPARTMENT Observed: 06/22/2018 Status: F Source: [place] SUMMARY 2:41 AM [facility] REPOSITORY [facility] Medical Records Department [address] [place] [address] Emergency Department Summary 06/22/18 0237 MR#: [id number] Acct: [id number] Name: DONIS FERRER Rep #: [id number] : 1985 33 From: Pete Encinas MD PCP: Jennifer Bailey DO Status: REG ER - ER Visit Summary Date of Service: 06/22/18 Chief Complaint: [anxiety] History of Present Illness: The patient is a 33 M [the presents stating he felt like he was having a panic attack when he laid down to go to sleep. He also describes some neck strain. He denies any fall or injury. No weakness, paresthesias, or radiculopathy. He denies any chest pain or shortness of breath. He overall appears well and in no acute distress. He began to look up on the Internet medications that can interact with the medications that he was just started on Latuda and Lexapro and was concerned. He denies any overdose or ingestion. He denies any suicidal or homicidal thoughts or ideations. He complains only of anxiety. He has no other complaints.] Physical Examination: [General: The patient appears well and in no apparent distress. Patient is resting comfortably on cart. Skin: Warm, dry, no pallor noted. No rash. Head: Normocephalic, atraumatic Neck: Supple, nontender in the midline. Bilateral paraspinal tenderness on examination. Range of motion normal. Eye: PERRLA, EOMI ENT: Moist mucus membranes, pharynx within normal limits. Cardiovascular: Regular Rate and Rhythm, no gallups or rubs Respiratory: Patient is in no distress, no accessory muscle use, lungs are clear to auscultation, no wheezing, rales or rhonchi Musculoskeletal: normal ROM, no deformity, no tenderness, no swelling. 2+ radial and DP pulses symmetric. GI: No tenderness to palpation, no masses appreciated. No rebound, guarding, or rigidity noted. Neurological: A AND O, normal strength and sensation. 5/5 bilateral upper extremity strength intact. Psychiatric: Cooperative] Test Results: [none] Emergency Department Course and Treatment: [Patient was given a dose of Ativan here with improvement. He was given Tylenol for neck pain as he states he is concerned the initially ordered Naprosyn will interfere with his medications. His neurological exam remains normal. I do not feel imaging is indicated. He denies any suicidal or homicidal thoughts or ideations. He does not appear to be having any symptoms of psychosis or hallucinations. He was advised to follow closely with his primary provider as well as the physician prescribing these new medications as he is concerned about their side effects and interactions. He was instructed to return with any new or worsening symptoms. Patient understands and is agreeable with this plan of care. Patient was discharged home in stable condition.] Treatment Plan: [See above] Disposition: [Discharged home, stable and improved] Impression: [Anxiety -improved, Acute cervical strain] This note was generated with [employer] dictation software. It may contain incorrect words, spelling, and punctuation that were not noted in review of the chart prior to signing ED Disposition - Plan for ED Patient: Disposition: Home or Assisted Living Chief Complaint: Anxiety Instructions: ED Panic Attack, ED Sprain Strain Neck Referrals: Jennifer Bailey, DO [Primary Care Provider] - What to do if you have Problems For any increased pain, shortness of breath, bleeding, nausea or vomiting, chest pain, or any unexpected problems, contact your Primary Care Provider. Call [facility] ([phone]) or report to the closest Emergency Room. Call 911 if necessary. 06/22/18 0241 <Electronically signed by Pete Encinas MD> Date Pete Encinas MD Cosigner Signature (If Indicated): Date CC: Jennifer Bailey DO HISTORY AND Observed: 06/10/2018 Status: F Source: [facility] PHYSICAL-DICTATED 1:52 PM [facility] [address] [address] NAME DONIS FERRER [facility] [id number] 1985 ADMIT 05/31/2018 HISTORY AND PHYSICAL IDENTIFYING INFORMATION Mr. Ferrer is a 33-year-old, single, unemployed, male residing in [place], [place]. PRESENT ILLNESS Patient had presented to [facility], where he had verbalized thoughts of hurting himself. Patient had claimed that he is afraid that something will slip and did not feel safe at home alone. Patient had admitted worsening of the depression and claimed that he has been constantly thinking about ending his life. Patient had admitted of a plan and intent of jumping off the bridge nearby home. Patient stated that this is possibly more intense lately, and he does not see any purpose of living. Patient had admitted of weight loss from 250 pounds to 209 pounds. Patient reported that he had never driven, and his mother also does not drive and has limited exposure to the outside world. He had been feeling lonely, spending time by himself at home of the mother. Patient has a history of previous suicidal attempt by taking overdose of pills. Patient stated that he has no recent work history and claimed that he had dropped out from the school in the 9th grade and had verbalized feeling of low self esteem. Patient was seen by pre-screener from [facility] and considering his deteriorating emotional state, suicidal plan, intent, and thought, and refusal to contract for the safety, was admitted for further evaluation and treatment. PAST HISTORY Patient denied previous psychiatric hospitalization. He has been seen at [facility] since December 2017 and has been treated with medication Topamax. FAMILY HISTORY Patient's biological parents were never together. Patient had little contact with the father. Patient lives with 69-year-old mother. Patient is only child of the biological parents. Patient is single, never , has no children. SOCIAL HISTORY Patient dropped out from the school in the 9th grade, had subsequently obtained GED. Patient had last worked 4 years ago. Patient stated that he had abused opiates, was swallowing tramadol. He had also abused dextromethorphan. Patient is receiving disability benefits since January 2018. MEDICAL HISTORY None significant. MENTAL STATUS EXAMINATION Donis Ferrer is a 33-year-old male, ambulatory, alert and oriented, poorly groomed, has sad looking facial expression. Patient had verbalized suicidal plan, intent, and thought. No delusions. No auditory or visual hallucinations noted. Psychomotor activities appeared in lower range. Patient had verbalized feeling of hopelessness, helplessness, also verbalized feeling of anhedonia anergia. He verbalized feeling of low self-esteem. Speech is minimal, non-spontaneous, coherent. Memory of recent and remote is intact. Intelligence average. DIAGNOSTIC IMPRESSION Depressive disorder. LABORATORY DATA Hematologic chemistry, toxicology, urinalysis unremarkable. REVIEW OF SYSTEMS Ten systems were reviewed. No significant finding. PHYSICAL EXAMINATION Constitutional: Height 6 feet, weight 209 pounds 2 ounces, BMI 28.36. Vital signs: Temperature 98, pulse 82, blood pressure 127/85, respirations 18. General appearance: Donis Ferrer is 33-year-old male, ambulatory, alert, oriented. Skin and mucous membranes: No lesions. Lymphatics: No lymphadenopathy. Skeletal and extremities: Normal range of motion. Head: Normocephalic. Ears: No discharge noted. Eyes: Pupils round, equal, reactive. Nose: No discharge noted. Mouth and Pharynx: Gibbon mucosa. Neck: Supple. Respiratory: Clear to auscultation. Cardiovascular: Normal heart sounds. Abdomen: Soft, nontender. Neurological: Unremarkable. PLAN Routine lab work. SP-2 for unpredictable behavior. Patient was explained the role of the prescribed medication, known indication, adverse effect, contraindication, alternatives to treatment. Patient is prescribed Lexapro 10 mg h.s. He will be seen in individual supportive therapy. He is encouraged to participate in group therapy, activity therapy. DAVE BUCHANAN MD D 05/31/2018 20:17 [id number] T 05/31/2018 21:03 YKD/MODL Electronically Signed By Dave Buchanan M.D. on 01 Jun 2018 18:30:05 GMT HISTORY AND Observed: 06/10/2018 Status: F Source: [facility] PHYSICAL-DICTATED 1:52 PM [facility] REPOSITORY [facility] [address] [address] NAME DONIS FERRER [facility] [id number] 1985 DATE PROGRESS NOTE Patient was seen individually. Case discussed with the nursing staff. Medical records were reviewed. Patient is calm and cooperative on approach. Denied suicidal or homicidal plan, intent, or thought. Psychomotor activities appeared within range. No agitated, threatening, or destructive behavior noted. Denied experiencing racing thoughts. No grandiose delusions noted. Patient is discharged today. He will attend [facility] in [place], [place]. DAVE BUCHANAN MD D 06/10/2018 13:52 [id number] T 06/10/2018 14:31 YKD/MODL Electronically Signed By Dave Buchanan M.D. on 12 Jun 2018 22:57:45 GMT URINALYSIS, ROUTINE Collected: 05/31/2018 Status: F Source: [facility] 4:15 PM [facility] REPOSITORY TYPE CODE TESTS RESULT OUT OF RANGE REFERENCE UNITS LAB COLOR Normal Color, Urine Yellow LAB CHAUR Normal Character Clear LAB SPGRUR 1.003-1.029 Normal Specific 1.006 [place],Urine LAB PHUR 4.5-8.0 Normal pH,Urine 6.0 LAB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 [id number] FUTURE VITAMIN D 25 HYDROXY [SQVITD] Order #: [id number] FUTURE Prescriptions as of 03/19/2018 Sig: HYDROXYZINE HCL 25 MG TABLET Take 1 tablet by mouth twice * GABAPENTIN 800 MG TABLET Take 800 mg by mouth three ti* PILOCARPINE 1 % EYE DROPS Use 1 Drop in both eyes once * Problem List As Of Date 03/19/2018 Noted Resolved Abnormal weight gain [R63.5] INVALID FOR* More... Tobacco abuse disorder [Z72.0] INVALID FOR* More... Recurrent major depression in partial remission*INVALID FOR* Dislocated IOL (intraocular lens) [T85.22XA] INVALID FOR* Vitamin D deficiency [E55.9] INVALID FOR* Encounter Status:Closed by WHITLEY FLORES CNP on 03/19/18 PROGRESS Observed: 03/19/2018 Status: COMPLETED Source: [place] 11:12 AM [facility] REPOSIT[facility] HNO ID: [id number] Author: Whitley Flores Service: (none) Author Type: Nurse Practitioner Type: Progress Notes Filed: 03/19/2018 11:48 AM Note Text: CC: Patient presents with: Physical HPI Donis Ferrer is a 32 year old male who presents today for annual physical exam. He also would like blood work done. Exercise: likes to exercise by walking. Diet: Watches diet for salt (salty snacks, added salt, processed frozen/canned foods), sugary/sweet snacks, unhealthy fats: Yes Caffeine: 2 sevings Water intake: sufficient Alcohol intake: No Smoker: No but he does vape. Stopped smoking marijuana a couple months ago. Current PCP: Jennifer Bailey. No plans to transfer care here at this time. Just wanted a second opinion on some things. Recently had thyroid tested and was he had low thryoid. He was started on thyroid medication but caused him to stay up all night. Stopped taking for that reason and believes his thyroid issues were due to Gabapentin use. Depression: Gabapentin, feels that it is effective. Also takes for chronic pain. Has problem with anxiety but has been getting better since he started exercising and changed his diet. REVIEW OF SYSTEMS General: no fevers, no chills, no night sweats, no change in appetite, no change in energy and no significant changes in weight HEENT: no frequent or significant headaches, no changes in hearing, Positive for sinus issues and right ear feels different than the left ear sometimes. Neck: no lumps, no pain and no swelling Respiratory: no cough, no wheezing, no shortness of breath Cardiovascular: no chest pain, no chest pressure and no swelling. Only has palpitations when he is anxious. GI: Negative for abdominal discomfort, nausea, vomiting, Chronic constipation : Negative for dysuria, frequency and urgency. Musculoskeletal: Left scapula: feels popping when he stretches his left arm out. Pain when leaning over too long. He is left handed. Has treated with Advil, with good relief. Denies numbness, tingling or weakness in his arms. Endocrine: no hair loss, no dry skin, no cold intolerance, no neck pain/pressure, no polyuria, no polyphagia. Positive for heat intolerance. PAST MEDICAL HISTORY Diagnosis Date - Eye disease intraoccular lenses slipping in right eye PAST SURGICAL HISTORY Procedure Laterality Date - EYE SURGERY PROCEDURE intraoccular lenses placement in both eyes - REM LENS MATERIAL; PPA W/WO VITRECT Right 05/10/2017 ALLERGIES Patient has no known allergies. MEDICATIONS hydrOXYzine HCl (ATARAX) 25 mg tablet Take 1 tablet by mouth twice daily as needed. gabapentin (NEURONTIN) 800 mg tablet Take 800 mg by mouth three times daily. pilocarpine (PILOCAR, ISOPTO CARPINE) 1 % ophthalmic solution Use 1 Drop in both eyes once daily. FAMILY HISTORY Problem Relation Age of Onset - Cataract Mother - schizophrenia [OTHER] Mother - bipolar [OTHER] Mother - depression [OTHER] Mother - Cataract Maternal Grandmother - Cataract Maternal Grandfather Social History Substance Use Topics - Smoking status: Current Every Day Smoker Packs/day: 0.50 Years: 12.00 Types: Cigarettes - Smokeless tobacco: Never Used - Alcohol use No PHYSICAL EXAM BP 110/89 (BP Site: Left Arm, BP Position: Sitting, BP Cuff Size: Regular Adult) Pulse 85 Temp 36.7 ?C (98 ?F) (Temporal Artery) Resp 16 Ht 182.5 cm (5' 11.85) Wt 105.6 kg (232 lb 12.8 oz) SpO2 97% BMI 31.71 kg/m? General Appearance: well appearing, in no acute distress, alert Pysch: mood and affect flat and restricted, speech slow Eyes: conjunctiva pink and moist, no icterus, sclera white, non-injected Ears: external ears normal to inspection and palpation, canals clear, Left tympanic membrane normal. , Right tympanic membrane normal Neck: Thyroid normal size and symmetric without palpable nodules, Neck supple, No adenopathy Oropharynx: lips normal without lesions, tongue midline and normal, soft palate, uvula, and tonsils normal Lymph nodes: No supraclavicular lymphadenopathy Lungs: Lungs clear to auscultation. No wheezing, rhonchi, rales Heart: RRR without murmur, gallop, or rubs. No ectopy Abdomen: Abdomen soft, non-tender. Bowel sounds normal. No masses, organomegaly but difficult exam due to obese abdomen Musculoskeletal: Cervical and thoracic spine: No tenderness. Left scapula/shoulder: No tenderness with palpation. Full ROM, painless. Popping sound with internal rotation. No pain associated with this. Ext: no edema in LE bilaterally, good distal pulses DTAP,TDAP,TD(1 - Tdap) due on 2003 ONE PNEUMOVAX PRIOR TO AGE 65 due on 2003 INFLUENZA(Season Ended) due on 07/06/2018 ASSESSMENT/PLAN: 1. Well adult exam - ICD9: V70.0, ICD10: Z00.00 (primary diagnosis) - Check BMP and fasting lipid panel - Follow up for annual exam in one year. 2. Pain of left scapula - ICD9: 733.90, ICD10: M89.8X1 Likely due to overuse. No concerning symptoms or exam findings today Continue with ice and OTC NSAID's Follow-up as needed if symptoms worsen 3. Abnormal TSH - ICD9: 790.6, ICD10: R94.6 Repeat today - TSH BLD 4. Encounter for lipid screening for cardiovascular disease - ICD9: V77.91, V81.2, ICD10: Z13.220, Z13.6 - LIPID PANEL BASIC 5. Vitamin D deficiency - ICD9: 268.9, ICD10: E55.9 History of severe deficiency, no work-up done. 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, [address] EMERGENCY DEPARTMENT Observed: 01/13/2018 Status: F Source: [place] SUMMARY 11:05 PM [facility] REPOSITORY [facility] Medical Records Department [address] [place] [address] Emergency Department Summary 01/13/18 2259 MR#: [id number] Acct: [id number] Name: DONIS FERRER Rep #: [id number] : 1985 32 From: Dwight Payan MD PCP: NOT, DEFINED Status: PRE ER - ER Visit Summary Date of Service: 01/13/18 Chief Complaint: Numerous symptoms and wants checked out History of Present Illness: The patient is a 32 M with history of panic attacks. He states today he believes he had a panic attack however he has had numerous other symptoms and wanted checked out. He states he felt palpitations in his heart beating when he is lying down. Complain of intermittent pain which localizes over the left nipple and left upper abdomen and complains of a cracking sensation in his left shoulder. He states he became anxious. He has history of panic attacks. He has not seen a counselor. He states normally he can calm himself down. He wanted test done to reassure him of that nothing else was going on. Patient denies fever, chills night sweats. He denies any ocular, visual auditory symptoms. He denies rhinorrhea, earache sore throat. He presently denies any chest pain, palpitations or heart racing. He presently denies any shortness of breath or cough. He denies nausea, vomiting or diarrhea. He denies dysuria, frequency, urgency or hematuria. There is no history of trauma. Physical Examination: Vital signs are remarkable for slight elevation blood pressure 153/99. HEENT exam is marked for strabismus. Heart is regular without murmur, gallop or rub. S1 and S2 are normal. Lungs are clear to auscultation with good movement of air bilaterally. Abdomen soft nontender. Patient is alert and oriented 3. Motor is 5 over 5. Sensory is intact. DTRs are symmetric with no clonus or Babinski sign. Cranial 2 through 12 are intact. Cerebellar testing is normal. Test Results: None were obtained, nor were any indicated Emergency Department Course and Treatment: She was reassured that his constellation of symptoms consistent with a panic attack. With regards to the shoulder pain most likely represents arthritis. Treatment Plan:. Stress reduction techniques Disposition: Discharged to home Impression: 1. Panic attack 2. Left shoulder pain secondary to degenerative arthritis This note was generated with [employer] dictation software. It may contain incorrect words, spelling, and punctuation that were not noted in review of the chart prior to signing ED Disposition - Plan for ED Patient: Disposition: Home or Assisted Living Chief Complaint: Anxiety Instructions: ED Panic Attack, Osteoarthritis: Coping with Pain Referrals: NOT,DEFINED [Primary Care Provider] - Jennifer Bailey, DO [NON-STAFF] - As Needed What to do if you have Problems For any increased pain, shortness of breath, bleeding, nausea or vomiting, chest pain, or any unexpected problems, contact your Primary Care Provider. Call [facility] ([phone]) or report to the closest Emergency Room. Call 911 if necessary. 01/13/18 5690 <Electronically signed by Dwight Payan MD> Date Dwight Julian Signature (If Indicated): Date CC: DEFINED NOT PROGRESS Observed: 12/31/2017 Status: COMPLETED Source: [place] 2:14 PM [facility] [place] REPOSITORY HNO ID: [id number] Author: Анна Fagan Service: (none) Author Type: Physician Type: Progress Notes Filed: 12/31/2017 2:33 PM Note Text: 1. History of congenital cataracts both eyes s/p Scleral sutured intraocular lens (SSIOL) both eyes now with dislocated right eye intraocular lens with nasal suture intact and lost temporal suture - now s/p Pars plana vitrectomy (PPV) /scleral fixation right eye (05/10/2017) - 10-0 nylon corneal suture right eye loose, removed today - doing well - recommend observation, Patient irritated with dilated pupil - recommend Pilocarpine 1% once a day both eyes and see if this improves the light sensitivity that he has both eyes. I have confirmed and edited as necessary the relevant ophthalmic history, ROS, and the neuro exam findings as obtained by others. I have seen and examined this patient. I have discussed the case and the management of this patient's care with the Resident/Fellow, if applicable. I also have reviewed and agree with the assessment and plan as stated above and agree with all of its relevant components. ALLERGIES ALLERGIES DATE TYPE / CODE NAME / CODE REACTION SEVERITY SOURCE 10/13/2018 Drug No Known Unknown [place] Allergy/416 Allergies/F37857 [facility] 380915(SNOM 0388(RXNORM) Hospital ED CT) Repository 07/02/2018 DRUG GABAPENTIN INTOLERANCE [facility] INGREDI/419 [facility] 700456(SNOM Repository ED CT) Drug NO KNOWN [facility] Class/73117 ALLERGIES [address] [place] 1003(SNOMED Repository CT) ENCOUNTERS ENCOUNTERS ADMIT/DISCHARGE ACCOUNT ADMITTING ENCOUNTER LOCATION SOURCE NUMBER CLASS 10/13/2018/10/13/20 [id number] Emergency [place] 18 [facility] ding:ED Repository 10/05/2018/10/06/20 [id number] Emergency [place] ding:ED Repository 09/24/2018/09/25/20 [id number] Emergency [place] ding:ED Repository 09/13/[id number] Indu Inpatient [facility] Dave K Encounter [facility] Repository 09/13/2018/09/14/20 [id number] Emergency [place] ding:ED Repository 09/07/2018/09/08/20 [id number] Emergency [place] ding:ED Repository 08/17/2018/08/17/20 [id number] Emergency [address] ding:ED Repository 08/11/2018/08/11/20 [id number] Emergency [place] ding:ED Repository 08/06/2018/08/06/20 [id number] Ambulatory BMSBuilding: [place] 18 BMS.[facility] Repository 08/01/2018/08/01/20 [id number] Ambulatory BMSBuilding: [place] 18 BMS.[facility] Repository 07/24/2018 [id number] Ambulatory [facility] ding:PT Repository 07/23/2018/07/23/20 [id number] Ambulatory BMSBuilding: [place] 18 BMS.[facility] Repository 07/19/2018/07/19/20 [id number] Ambulatory [address] Repository 07/18/2018/07/19/20 [id number] Ambulatory [address] Repository 07/11/2018 [id number] Ambulatory BMSBuilding: [place] BMS.[facility] Repository 07/05/2018/07/10/[id number] Tai Inpatient [place] [address] [address] P Encounter lding:B33B [facility] Psych/AdultR [place] oom: B33B [facility] 3315Bed: Repository [id number] 07/04/2018/07/05/20 [id number] Emergency [place] ding:ED Repository 07/02/2018/07/03/20 [id number] Ambulatory [address] Repository 07/01/2018/07/01/20 [id number] Ambulatory BMSBuilding: [place] 18 BMS.[facility] Repository 06/26/2018/06/26/20 [id number] Emergency [place] ding:ED Repository 06/25/2018/06/25/20 [id number] Ambulatory BMSBuilding: [place] 18 BMS.[facility] Repository 06/22/2018/06/22/20 [id number] Emergency [address] ding:ED Repository 05/31/2018/06/10/[id number] Indu Inpatient [address] Encounter lding:[address] and Psych/AdultR [place]olene oom: [place] [id number]: Repository [facility] [id number] 05/30/2018/05/31/20 [id number] Emergency [place] ding:ED Repository 05/24/2018/05/24/20 [id number] Ambulatory BMSBuilding: [place] 18 BMS.[facility] Repository 04/17/2018/04/17/20 [id number] Emergency [address] ding:ED Repository 04/03/2018/04/03/20 [id number] Emergency [place] ding:ED Repository 03/28/2018/03/29/20 [id number] Ambulatory [address] Repository 03/19/2018 [id number] Ambulatory [facility] Repository 03/19/2018/03/25/20 [id number] Ambulatory [address] Repository 02/15/2018 [id number] Ambulatory [facility] ding:LAB Repository 01/13/2018/01/14/20 [id number] Emergency [address] ding:ED Repository 12/31/2017/12/31/19 [id number] Ambulatory [address] Repository PAYERS PAYERS ENCOUNTER GUARANTOR PAYER SUBSCRIBER SOURCE 10/13/2018 DONIS Delacruz Primary Insurance:[facility] DONIS Delacruz [place] [id number] E COMMUNITY PLANPolicy THOMPSONDOB: [facility] Number: [id number] [place], [place] [id number] Repository [address]Zoz: (330) Date:5586-67-00QH [phone] () [address] [place] [address] 35617PW: 10/13/2018 Secondary NOT GIVENUNK [place] Insurance:SELF PAY [facility] Number: Effective Repository Date:2018-10-13 10/05/2018 DONIS A Primary Insurance:[facility] DONIS A [place] [id number] [facility] PLANPolicy THOMPSONDOB: [facility] Number: [id number] [place], [place] [id number] Repository [address]Kvf: (330) Date:4557-95-41ZH [phone] () [address] [place] [address] 46728HC: 10/05/2018 Secondary NOT GIVENUNK [place] Insurance:SELF PAY [facility] Number: Effective Repository Date:2018-10-05 09/24/2018 DONIS A Primary Insurance:[facility] DONIS Delacruz [place] [id number] [facility] PLANPolicy THOMPSONDOB: [facility] Number: [id number] [place], [place] [id number] Repository [address]Ldn: (330) Date:2663-41-10OX [phone] () [address] [place] [address] 38481VV: 09/24/2018 Secondary NOT GIVENUNK [place] Insurance:SELF PAY [facility] Number: Effective Repository Date:2018-09-24 09/13/2018 Primary DONIS Nubia [facility] THOMPSONDOB: Swathi [facility] [address]Polic [id number] Number: 8 [facility] Repository [id number] [facility], Date:Plan [place] [address]Rjs: Name:[facility] [address] [place] [address] () 871[address]GR: 09/13/2018 DONIS A Primary Insurance:[facility] DONIS A [place] [id number] E [address]UN[address] PLANPolicy THOMPSONDOB: [facility] RADHA Number: [id number] [place], [place] [id number] Repository [address]Ush: (330) Date:8800-73-29GV [phone] () [address] [place] [address] 21246DK: 09/13/2018 Secondary NOT GIVENUNK [place] Insurance:SELF PAY [facility] Number: Effective Repository Date:2018-09-13 09/07/2018 DONIS A Primary Insurance:[facility] DONIS A [place] [id number] E COMMUNITY PLANPolicy THOMPSONDOB: [facility] Number: [id number] [place], [place] [id number] Repository [address]Lvt: (330) Date:7409-96-34RO [phone] () [address] [place] [address] 38487RN: 09/07/2018 Secondary NOT GIVENUNK [place] Insurance:SELF PAY [facility] Number: Effective Repository Date:2018-09-07 08/17/2018 DONIS A Primary Insurance:[facility] DONIS A Tahir [id number] E COMMUNITY PLANPolicy THOMPSONDOB: [facility] Number: [id number] [place], [place] [id number] Repository 43742Lnb: (330) Date:3880-06-57LL [phone] () [address] [place] [address] 05358WY: 08/17/2018 Secondary NOT GIVENUNK [place] Insurance:SELF PAY [facility] Number: Effective Repository Date:2018-08-17 08/11/2018 DONIS A Primary Insurance:[facility] DONIS A [place] [id number] E COMMUNITY PLANPolicy THOMPSONDOB: [facility] Number: [id number] [place], [place] [id number] Repository 13496Avo: (330) Date:2146-52-45DK [phone] () [address] [place] [address] 89008TF: 08/11/2018 Secondary NOT GIVENUNK [place] Insurance:SELF PAY [facility] Number: Effective Repository Date:2018-08-11 08/06/2018 DONIS A Primary Insurance:[facility] DONIS A [place] [id number] E COMMUNITY PLANPolicy THOMPSONDOB: [facility] Number: [id number] [place], [place] [id number] Repository 98570Wcf: (330) Date:4265-81-73GX [phone] () [address] [place] [address] 78012CF: 08/06/2018 Secondary NOT GIVENUNK [place] Insurance:SELF PAY [facility] Number: Effective Repository Date:2018-08-06 08/01/2018 DONIS A Primary Insurance:[facility] DONIS A [place] [id number] E COMMUNITY PLANPolicy THOMPSONDOB: [facility] Number: [id number] [place], [place] [id number] Repository 94533Osd: (330) Date:9422-68-51WQ [phone] () [address] [place] [address] 22236MK: 08/01/2018 Secondary NOT GIVENUNK [place] Insurance:SELF PAY [facility] Number: Effective Repository Date:2018-08-01 07/24/2018 DONIS A Primary Insurance:[facility] DONIS A [place] [id number] E COMMUNITY PLANPolicy THOMPSONDOB: [facility] Number: [id number] [place], [place] [id number] Repository 90077Zll: (330) Date:5284-06-73TR [phone] () [address] [place] [address] 25232DM: 07/24/2018 Secondary NOT GIVENUNK [place] Insurance:SELF PAY [facility] Number: Effective Repository Date:2018-05-24 07/23/2018 DONIS A Primary Insurance:[facility] DONIS A [place] [id number] E COMMUNITY PLANPolicy THOMPSONDOB: [facility] Number: [id number] [place], [place] [id number] Repository 07817Ncb: (330) Date:7895-66-76CR [phone] () [address] [place] [address] 63924GW: 07/23/2018 Secondary NOT GIVENUNK [place] Insurance:SELF PAY [facility] Number: Effective Repository Date:2018-07-23 07/11/2018 DONIS A Primary Insurance:[facility] DONIS A [place] [id number] E COMMUNITY PLANPolicy THOMPSONDOB: [facility] Number: [id number] [place], [place] [id number] Repository 38058Hvg: (330) Date:6335-97-16IM [phone] () [address] [place] [address] 45162US: 07/11/2018 Secondary NOT GIVENUNK [place] Insurance:SELF PAY [facility] Number: Effective Repository Date:2018-07-01 07/05/2018 Primary DONIS A [facility] Insurance:[facility] THOMPSONDOB: [facility] 8207[facility] [id number] Number: [address] [facility] [id number] STREETWOOST[place], Date:[facility] [address]Wub: Name:[facility] [address] [place] [address] () 14634MS: 07/04/2018 DONIS A Primary Insurance:[facility] DONIS A [place] [id number] E [facility] PLANPolicy THOMPSONDOB: [facility] Number: [id number] [place], [place] [id number] Repository 38092Llr: (330) Date:1166-81-93JS [phone] () [address] [place] [address] 09724CU: 07/04/2018 Secondary NOT GIVENUNK [place] Insurance:SELF PAY [facility] Number: Effective Repository Date:2018-07-04 07/01/2018 DONIS A Primary Insurance:[facility] DONIS A [place] [id number] E [facility] PLANPolicy THOMPSONDOB: [facility] Number: [id number] [place], [place] [id number] Repository 12470Ben: (330) Date:5661-71-60HM [phone] () [address] [place] [address] 55614RK: 07/01/2018 Secondary NOT GIVENUNK [place] Insurance:SELF PAY [facility] Number: Effective Repository Date:2018-07-01 06/26/2018 DONIS A Primary Insurance:[facility] DONIS A [place] [id number] E COMMUNITY PLANPolicy THOMPSONDOB: [facility] Number: [id number] [place], [place] [id number] Repository 26043Bdk: (330) Date:4174-55-65KT [phone] () [address] [place] [address] 63183TG: 06/26/2018 Secondary NOT GIVENUNK [place] Insurance:SELF PAY [facility] Number: Effective Repository Date:2018-06-26 06/25/2018 DONIS A Primary Insurance:[facility] DONIS A [place] [id number] E COMMUNITY PLANPolicy THOMPSONDOB: [facility] Number: [id number] [place], [place] [id number] Repository 29667Bbb: (330) Date:2079-13-02JB [phone] () [address] [place] [address] 31525HE: 06/25/2018 Secondary NOT GIVENUNK [place] Insurance:SELF PAY [facility] Number: Effective Repository Date:2018-06-25 06/22/2018 DONIS A Primary Insurance:[facility] DONIS A [place] [id number] E COMMUNITY PLANPolicy THOMPSONDOB: [facility] Number: [id number] [place], [place] [id number] Repository 11458Zry: (330) Date:3179-95-22ZZ [phone] () [address] [place] [address] 21388KL: 06/22/2018 Secondary NOT GIVENUNK [place] Insurance:SELF PAY [facility] Number: Effective Repository Date:2018-06-22 05/31/2018 Primary DONIS A [facility] Insurance:[facility] THOMPSONDOB: [facility] 8207Policy [id number] Number: 8 [facility] Repository [id number] [facility], Date:Plan [place] [address]Bml: Name:[facility] [address] [place] [address] () 17418LU: 05/30/2018 DONIS A Primary Insurance:[facility] DONIS A [place] [id number] E COMMUNITY PLANPolicy THOMPSONDOB: [facility] Number: [id number] [place], [place] [id number] Repository 77445Wzq: (330) Date:9692-19-43TJ [phone] () [address] [place] [address] 61554XV: 05/30/2018 Secondary NOT GIVENUNK [place] Insurance:SELF PAY [facility] Number: Effective Repository Date:2018-05-30 05/24/2018 DONIS A Primary Insurance:[facility] DONIS A [place] [id number] E COMMUNITY PLANPolicy THOMPSONDOB: [facility] Number: [id number] [place], [place] [id number] Repository 50125Wrn: (330) Date:6143-35-78MH [phone] () [address] [place] [address] 87486YJ: 05/24/2018 Secondary NOT GIVENUNK [place] Insurance:SELF PAY [facility] Number: Effective Repository Date:2018-05-24 04/17/2018 DONIS A Primary Insurance:[facility] DONIS A [place] [id number] E COMMUNITY PLANPolicy THOMPSONDOB: [facility] Number: [id number] [place]o, [place] [id number] Repository 53134Wvs: (330) Date:8195-90-51IG [phone] () [address] [place] [address] 13338BB: 04/17/2018 Secondary NOT GIVENUNK [place] Insurance:SELF PAY [facility] Number: Effective Repository Date:2018-04-17 04/03/2018 DONIS A Primary Insurance:[facility] DONIS A [place] [id number] E COMMUNITY PLANPolicy THOMPSONDOB: [facility] Number: [id number] [place], [place] [id number] Repository 56631Bse: (330) Date:4247-72-59BA [phone] () [address] [place] [address] 20894TS: 04/03/2018 Secondary NOT GIVENUNK [place] Insurance:SELF PAY [facility] Number: Effective Repository Date:2018-04-03 02/15/2018 DONIS Delacruz Primary Insurance:[facility] DONIS Delacruz [place] [id number] E COMMUNITY PLANPolicy THOMPSONDOB: [facility] Number: [id number] [place], [place] [id number] Repository 44106Akp: (330) Date:1593-79-62XE [phone] () [address] [place] [address] 93152FA: 02/15/2018 Secondary NOT GIVENUNK [place] Insurance:SELF PAY [facility] Number: Effective Repository Date:2018-02-15 01/13/2018 DONIS Delacruz Primary Insurance:[facility] DONIS Delacruz [place] [id number] E [facility] PLANPolicy THOMPSONDOB: [facility] Number: [id number] [place], [place] [id number] Repository 92799Vmt: (330) Date:9297-84-94OK [phone] () [address] [place] [address] 69122QQ: 01/13/2018 Secondary NOT GIVENUNK [place] Insurance:SELF PAY [facility] Number: Effective Repository Date:2018-01-13
== END 2018-10-06 00:52 | disposition home or self-care (01) ==
PROVIDERS: Emergency Provider Emergency Medicine; Family Provider Internal Medicine; PCP Internal Medicine
DX: F41.0 Panic disorder [episodic paroxysmal anxiety] (principal); F41.1 Generalized anxiety disorder; M99.01 Segmental and somatic dysfunction of cervical region; M99.03 Segmental and somatic dysfunction of lumbar region; M99.02 Segmental and somatic dysfunction of thoracic region; Z79.899 Other long term (current) drug therapy
CPT/HCPCS: 96372; 99285

== ENCOUNTER 2018-10-13 22:36 | Emergency (ER) | payer MEDICAID, SELFPAY ==
[2018-10-13 22:36] VITALS: BP 128/100; PULSE 90; RESP 16; TEMP 36.6; O2SAT 98; BMI 31.8
--- NOTE | 2018-10-13 22:48 | ED.VISSUMM ---
- ER Visit Summary Date of Service: 10/13/18 Chief Complaint: [] Anxiety exacerbation History of Present Illness: The patient is a 33 M [] long history of anxiety on non-controlled substances Ativan was discontinued about 1 month ago he reports he had a exacerbation of his anxiety disorder today where he felt sense of complete nervousness, no no homicidal suicidal ideation no drug abuse no fever no cough no other complaints he has had these exacerbations chronically he is seeing counselors and they have asked him to try to manage these with deep breathing and mindfulness type exercises that did not work today and he came in Physical Examination: [] 128/100 heart rate 90 General, no distress resting comfortably HEENT is generally unremarkable The neck is supple no adenopathy Cardiovascular, regular rate and rhythm Lungs, clear bilateral Abdomen, soft nontender Extremities, no clubbing cyanosis or edema Neurologic, awake alert answering questions appropriately moving all 4 extremities At this time is resting comfortably no suicidal homicidal ideation indicates he is usually treated with Ativan 1 mg p.o. he can see his counselor his outpatient providers tomorrow he is comfortable with this plan Test Results: [] Emergency Department Course and Treatment: [] Treatment Plan: [] Disposition: [] Home stable Impression: [] Anxiety disorder This note was generated with [employer] dictation software. It may contain incorrect words, spelling, and punctuation that were not noted in review of the chart prior to signing ED Disposition - Plan for ED Patient: Chief Complaint: Anxiety Referrals: Jm Ty MD [Primary Care Provider] -
--- NOTE | 2018-10-13 22:59 | ED.DEP ---
ED Disposition - Plan for ED Patient: Chief Complaint: Anxiety Instructions: ED Panic Attack Referrals: Jm Ty MD [Primary Care Provider] -
[2018-10-13] MEDS: LORazepam 1 MG Tablet PO (23:02)
[2018-10-13 23:35] VITALS: BP 138/88; PULSE 73; RESP 16; O2SAT 96
== END 2018-10-13 23:35 | disposition home or self-care (01) ==
LOC: ED 23:08
PROVIDERS: Emergency Provider Emergency Medicine; Family Provider Internal Medicine; PCP Internal Medicine
DX: F41.9 Anxiety disorder, unspecified (principal); Z79.899 Other long term (current) drug therapy
CPT/HCPCS: 99284

== ENCOUNTER 2018-11-20 22:25 | Emergency (ER) | payer MEDICAID, SELFPAY ==
[2018-11-20 22:27] VITALS: BP 125/83; PULSE 90; RESP 17; TEMP 36.3; O2SAT 96; BMI 33.4
--- NOTE | 2018-11-20 22:49 | ED.DCSUM_ITS ---
- ER Visit Summary Date of Service: 11/20/18 Chief Complaint: Twitching and headache History of Present Illness: The patient is a 33 M who presents with a couple of complaints. He states that as he was falling asleep he would have jerks in his arms and legs which then woke him up. He is actually had prior similar symptoms or episodes in the past. He states what really worried and then was he developed diffuse severe head pain which was very brief lasting several seconds and has since resolved. He states he was concerned that this could be due to an aneurysm. He denies fevers chest pain shortness of breath nausea vomiting. He states that since this time he has felt very anxious. He has multiple prior emergency department visits for anxiety. Physical Examination: Afebrile vitals are normal Moist mucous membranes Heart regular rate and rhythm Lungs are clear Alert and oriented no focal or lateralizing neurological deficits normal strength normal sensation normal muscle tone Patient appears very anxious, asking if the people in neighboring rooms are okay Test Results: Not indicated Emergency Department Course and Treatment: Patient is currently asymptomatic with a normal neurological exam. I discussed with him that I feel serious process such as subarachnoid hemorrhage/intracranial hemorrhage very unlikely and believe risk of radiation would outweigh benefit. He was advised on specific signs and symptoms to monitor for. He understands return for new or worsening symptoms. He was discharged. Treatment Plan: [] Disposition: Discharge Impression: Headache, resolved This note was generated with [employer] dictation software. It may contain incorrect words, spelling, and punctuation that were not noted in review of the chart prior to signing ED Disposition - Plan for ED Patient: Chief Complaint: Anxiety Referrals: Jm Ty MD [Primary Care Provider] -
--- NOTE | 2018-11-20 22:49 | ED.DEP ---
ED Disposition - Plan for ED Patient: Chief Complaint: Anxiety Instructions: ED Panic Attack, ED Cephalgia Unspecified Referrals: Jm Ty MD [Primary Care Provider] -
--- OUTSIDE RECORDS SUMMARY | 2019-01-25 17:21 | XMS RPT_ITS ---
:1985 Author Organization OHIP Support Name Relationship Address Phone D Unavailable Unavailable Unavailable TRACY FERRER Unavailable [address] + [place] [address] D Unavailable Unavailable Unavailable TRACY FERRER Unavailable [address] + [place] [address] D Unavailable Unavailable Unavailable TRACY FERRER Unavailable [address] + [place] [address] D Unavailable Unavailable Unavailable TRACY FERRER Unavailable [address] + [place] [address] D Unavailable Unavailable Unavailable TRACY FERRER Unavailable [address] + [place] [address] D Unavailable Unavailable Unavailable TRACY FERRER Unavailable [address] + [place] [address] D Unavailable Unavailable Unavailable TRACY FERRER Unavailable [address] + [place] [address] D Unavailable Unavailable Unavailable TRACY FERRER Unavailable [address] + [place] [address] D Unavailable Unavailable Unavailable TRACY FERRER Unavailable [address] + [place] [address] D Unavailable Unavailable Unavailable TRACY FERRER Unavailable [address] + [place] [address] D Unavailable Unavailable Unavailable TRACY FERRER Unavailable [address] + [place] [address] D Unavailable Unavailable Unavailable TRACY FERRER Unavailable [address] + [place] [address] D Unavailable Unavailable Unavailable TRACY FERRER Unavailable [address] + [place] [address] D Unavailable Unavailable Unavailable FERRER TRACY Unavailable [address] + [place] [address] D Unavailable Unavailable Unavailable FERRER TRACY Unavailable [address] + [place] [address] D Unavailable Unavailable Unavailable FERRER TRACY Unavailable [address] + [place] [address] D Unavailable Unavailable Unavailable FERRER TRACY Unavailable [address] + [place] [address] D Unavailable Unavailable Unavailable FERRER, TRACY Unavailable [address] + [place] [address] D Unavailable Unavailable Unavailable FERRER, TRACY Unavailable [address] + [place] [address] D Unavailable Unavailable Unavailable FERRER TRACY Unavailable [address] + [place] [address] D Unavailable Unavailable Unavailable FERRER TRACY Unavailable [address] + [place] [address] D Unavailable Unavailable Unavailable FERRER TRACY Unavailable [address] + [place] [address] D Unavailable Unavailable Unavailable FERRER TRACY Unavailable [address] + [place] [address] D Unavailable Unavailable Unavailable FERRER TRACY Unavailable [address] + [place] [address] Care Team Providers Name Role Phone JM LUO Referring Unavailable JM LUO Attending Unavailable OLDER, WHITLEY (JACQUARD LOOM WEAVER) Referring Unavailable OLDER, WHITLEY (JACQUARD LOOM WEAVER) Attending Unavailable OLDER, WHITLEY (JACQUARD LOOM WEAVER) Attending Unavailable OLDER, WHITLEY (JACQUARD LOOM WEAVER) Referring Unavailable OLDER, WHITLEY (JACQUARD LOOM WEAVER) Attending Unavailable АННА FAGAN Attending Unavailable Buchanan, Dr. Dave Jackson Admitting Unavailable Buchanan, Dr. Dave Jackson Attending Unavailable Lujan, Dr. Chato Cooper Admitting Unavailable Lujan, Dr. Chato Cooper Attending Unavailable Buchanan, Dr. Dave Jackson Admitting Unavailable Buchanan, Dr. Dave Jackson Attending Unavailable Jm Luo Primary Care Unavailable Arron Wolfe Attending Unavailable Dwight Payan Attending Unavailable Leo, Jennifer Primary Care Unavailable Joao, Daniela Attending Unavailable Joao, Daniela Referring Unavailable Leo, Jennifer Primary Care Unavailable Leo, Jennifer Primary Care Unavailable Alessandro Palumbo Attending Unavailable Leo, Jennifer Primary Care Unavailable India, Katarina Attending Unavailable Dominik, Raymond Attending Unavailable Leo, Jennifer Referring Unavailable Leo, Jennifer Primary Care Unavailable Dominik, Raymond Attending Unavailable Dominik, Raymond Referring Unavailable Leo, Jennifer Primary Care Unavailable Leo, Jennifer Primary Care Unavailable Alba Boyd Attending Unavailable Leo, Jennifer Primary Care Unavailable Storm Encinas Attending Unavailable Dossie, Jennifer BellCBetty Attending Unavailable Leo, Jennifer Referring Unavailable Leo, Jennifer Primary Care Unavailable Leo, Jennifer Primary Care Unavailable Frank Olmos Attending Unavailable Dossie, Jennifer BellCBetty Attending Unavailable Leo, Jennifer Referring Unavailable Leo, Jennifer Primary Care Unavailable Leo, Jennifer Primary Care Unavailable Davi Gonzalez Attending Unavailable Dossie, Jennifer BellCBetty Attending Unavailable Dossie, Jennifer BellCBetty Attending Unavailable Primay Care Physicia, No Referring [...] STATUS SOURCE 08/07/2018 Unknown M99.02 - Segmental Jennifer Santiago Active [place] [facility] christine Alvarez.CBetty Community dysfunction of Hospital thoracic region / Repository M99.02(ICD-10) 08/07/2018 Unknown M99.03 - Segmental Dossie, Jennifer Active [facility] Community dysfunction of Hospital lumbar region / Repository M99.03(ICD-10) 08/07/2018 Unknown M99.01 - Segmental Dossie, Jennifer Active [place] [facility] Community dysfunction of Hospital cervical region / Repository M99.01(ICD-10) 11/27/2018 Unknown M62.830 - Muscle Dominik, Raymond Active [facility] spasm of back / Community M62.830(ICD-10) Hospital Repository 07/18/2018 Active Personal history of Active [place] other specified Clinic Main conditions / [facility] Z87.898(ICD-10) Repository 03/19/2018 Active Vitamin D [facility] deficiency, Clinic Main unspecified / [facility] E55.9(ICD-10) Repository 03/19/2018 Active Encounter for [facility] screening for lipoid Clinic Main disorders / [facility] Z13.220(ICD-10) Repository 03/19/2018 Active Encounter for [facility] screening for Clinic Main cardiovascular [facility] disorders / Repository Z13.6(ICD-10) 03/19/2018 Active Abnormal results of [facility] thyroid function Clinic Main studies / [facility] R94.6(ICD-10) Repository 02/15/2018 Unknown E03.9 - Daniela Shepherd Active [facility] Hypothyroidism, Community unspecified / Hospital E03.9(ICD-10) Repository 12/31/2017 Active Unknown / АННА FAGAN Active [facility] UNK(Unknown) Clinic Main [facility] Repository PROCEDURES PROCEDURES No Procedure Records FoundRESULTS RESULTS EMERGENCY DEPARTMENT Observed: 11/20/2018 Status: F Source: [place] SUMMARY 10:49 PM [facility] Medical Records Department [address] [place] [address] Emergency Department Summary 11/20/18 2245 MR#: [id number] Acct: [id number] Name: DONIS FERRER Rep #: [id number] : 1985 33 From: Arron Wolfe MD PCP: Jm Luo MD Status: PRE ER - ER Visit Summary Date of Service: 11/20/18 Chief Complaint: Twitching and headache History of Present Illness: The patient is a 33 M who presents with a couple of complaints. He states that as he was falling asleep he would have jerks in his arms and legs which then woke him up. He is actually had prior similar symptoms or episodes in the past. He states what really worried and then was he developed diffuse severe head pain which was very brief lasting several seconds and has since resolved. He states he was concerned that this could be due to an aneurysm. He denies fevers chest pain shortness of breath nausea vomiting. He states that since this time he has felt very anxious. He has multiple prior emergency department visits for anxiety. Physical Examination: Afebrile vitals are normal Moist mucous membranes Heart regular rate and rhythm Lungs are clear Alert and oriented no focal or lateralizing neurological deficits normal strength normal sensation normal muscle tone Patient appears very anxious, asking if the people in neighboring rooms are okay Test Results: Not indicated Emergency Department Course and Treatment: Patient is currently asymptomatic with a normal neurological exam. I discussed with him that I feel serious process such as subarachnoid hemorrhage/intracranial hemorrhage very unlikely and believe risk of radiation would outweigh benefit. He was advised on specific signs and symptoms to monitor for. He understands return for new or worsening symptoms. He was discharged. Treatment Plan: [] Disposition: Discharge Impression: Headache, resolved This note was generated with [employer]Innovation dictation software. It may contain incorrect words, [...] your Primary Care Provider. Call [facility] ([phone]) or report to the closest Emergency Room. Call 911 if necessary. 11/20/18 8625 <Electronically signed by Arron Wolfe MD> Date Arron Wolfe MD Cosigner Signature (If Indicated): Date CC: Jm Luo MD DISCHARGE INSTRUCTION Observed: 11/20/2018 Status: F Source: [place] 10:49 PM [facility] Medical Records Department [address] [place] [address] Discharge Instruction 11/20/182248 MR#: [id number] Acct: [id number] Name: DONIS FERRER Rep #: [id number] : 1985 33 From: Arron Wolfe MD PCP: Jm Luo MD Status: PRE ER ED Disposition - Plan for ED Patient: Chief Complaint: Anxiety Instructions: ED Panic Attack, ED Cephalgia Unspecified Referrals: Jm Luo MD [Primary Care Provider] - What to do if you have Problems For any increased pain, shortness of breath, bleeding, nausea or vomiting, chest pain, or any unexpected problems, contact your Primary Care Provider. Call [facility] ([phone]) or report to the closest Emergency Room. Call 911 if necessary. 11/20/182248 <Electronically signed by Arron Wolfe MD> Date Arron Wolfe MD Cosigner Signature (If Indicated): Date CC: Jm Luo MD EMERGENCY DEPARTMENT Observed: 10/13/2018 Status: F Source: [place] SUMMARY 11:44 PM [facility] Medical Records Department [address] [place] [address] Emergency Department Summary 10/13/188 MR#: [id number] Acct: [id number] Name: DONIS FERRER Rep #: [id number] : 1985 33 From: Alba Boyd MD [...] Anxiety disorder This note was generated with [employer]Innovation dictation software. It may contain incorrect words, [...] your Primary Care Provider. Call [facility] ([phone]) or report to the closest Emergency Room. Call 911 if necessary. 10/13/18 5058 <Electronically signed by Alba Boyd MD> Date Alba Boyd MD Cosigner Signature (If Indicated): Date CC: Jm Luo MD DISCHARGE INSTRUCTION Observed: 10/13/2018 Status: F Source: [place] 10:59 PM [facility] Medical Records Department [address] [place] [address] Discharge Instruction 10/13/182258 MR#: [id number] Acct: [id number] Name: DONIS FERRER Rep #: [id number] : 1985 33 From: Alba Boyd MD [...] your Primary Care Provider. Call [facility] ([phone]) or report to the closest Emergency Room. Call 911 if necessary. 10/13/182258 <Electronically signed by Alba Boyd MD> Date Alba Boyd MD Cosigner Signature (If Indicated): Date CC: Jm Luo MD EMERGENCY DEPARTMENT Observed: 10/06/2018 Status: F Source: [place] SUMMARY 12:39 AM [facility] Medical Records Department [address] [place] [address] Emergency Department Summary 10/06/18 0028 MR#: [id number] Acct: [id number] Name: DONIS FERRER Rep #: [id number] : 1985 33 From: Jhoan Saldana MD [...] your Primary Care Provider. Call [facility] ([phone]) or report to the closest Emergency Room. Call 911 if necessary. 10/06/18 0039 <Electronically signed by Jhoan Saldana MD> Date Jhoan Saldana MD Cosigner Signature (If Indicated): Date CC: Jm Luo MD EMERGENCY DEPARTMENT Observed: 09/25/2018 Status: F Source: [place] SUMMARY 6:51 AM [facility] Medical Records Department [address] [place] [address] Emergency Department Summary 09/25/18 0026 MR#: [id number] Acct: [id number] Name: DONIS FERRER Rep #: [id number] : 1985 33 From: Nahun Ybarra DO [...] anxiety disorder This note was generated with [employer]In[employer]ovation dictation software. It may contain incorrect words, [...] your Primary Care Provider. Call [facility] ([phone]) or report to the closest Emergency Room. Call 911 if necessary. 09/25/18 0651 <Electronically signed by Nahun Ybarra DO> Date Nahun Ybarra DO Cosigner Signature (If Indicated): Date CC: Jm Luo MD 12 LEAD ELECTROCARDIOGRAM Observed: 09/17/2018 Status: F Source: [place] 3:54 PM [facility] Cardiovascular Services [address] [place] [address] 12 Lead EKG 09/13/18 1919 MR#: [id number] Acct: [id number] Name: DONIS FERRER Rep #: [id number] : 1985 33 From: Anthony Saba MD [...] ECG Confirmed by JASSON RODAS, ANTHONY ([id number]), index editor MADY VALENZUELA (56) on 09/17/2018 3:53:42 PM Referred By: DR NORWOOD Confirmed By:ANTHONY SABA MD 09/17/18 1553 Date Anthony Saba MD CC: Jesus Barr DO; Juan Manuel Arnold MD; Jm Luo MD Signed CBC W/DIFF, AUTOMATED Collected: 09/13/2018 Status: F Source: [place] 3:39 AM [facility] REPOSITORY TYPE CODE TESTS RESULT OUT OF [...] Lymph 1.90 Performed By: #### L100.0100 #### [facility] [address] [facility] [place], [place], [id number] BASIC METABOLIC Collected: 09/13/2018 Status: F Source: [place] PROFILE (BMP) 3:39 AM [facility] REPOSITORY TYPE CODE TESTS RESULT OUT OF [...] Normal 7 Performed By: #### L500.2500 #### [facility] [address] [facility] [place], [place], [address] ALCOHOL, BLOOD Collected: 09/13/2018 Status: F Source: [place] (MEDICAL)-SERUM 3:39 AM [facility] REPOSITORY TYPE CODE TESTS RESULT OUT OF [...] fatal coma Performed By: #### L501.9100 #### [facility] [address] [place], [place], [id number] LIVER PROFILE Collected: 09/13/2018 Status: F Source: [place] 3:39 AM [facility] REPOSITORY TYPE CODE TESTS RESULT OUT OF [...] BILI 0.15 Performed By: #### L500.3400 #### [facility] [address] [place], [place], [address] URINE DRUG SCREEN Collected: 09/13/2018 Status: F Source: [place] (SINDY) 3:20 AM [facility] REPOSITORY TYPE CODE TESTS RESULT OUT OF [...] MUST BE ORDERED SEPARATELY. USE TEST MNEMONIC: [facility] L505.5005 [facility] UDS PH 6 Normal [...] Normal NEGATIVE Performed By: #### L505.5000 #### [facility] [address] [facility] [place], [address] EMERGENCY DEPARTMENT Observed: 09/13/2018 Status: F Source: [place] SUMMARY 3:16 AM [facility] Medical Records Department [address] [facility] [address] Emergency Department Summary 09/13/18 0314 MR#: [id number] Acct: [id number] Name: DONIS FERRER Rep #: [id number] : 1985 33 From: Juan Manuel Arnold [...] suicidal ideation This note was generated with Dragon dictation software. It may contain incorrect words, [...] your Primary Care Provider. Call [facility] ([phone]) or report to the closest Emergency Room. Call 911 if necessary. 09/13/18 0316 <Electronically signed by Juan Manuel Arnold MD> Date Juan Manuel Arnold MD Cosigner Signature (If Indicated): Date CC: Jm Luo MD EMERGENCY DEPARTMENT Observed: 09/08/2018 Status: F Source: [place] SUMMARY 1:45 AM [facility] Medical Records Department [address] [place] [address] Emergency Department Summary 09/07/18 2307 MR#: [id number] Acct: [id number] Name: DONIS FERRER Rep #: [id number] : 1985 33 From: Uzair Estrella MD [...] anxiety reaction This note was generated with [employer]In[employer] dictation software. It may contain incorrect words, [...] problems, contact your Primary Care Provider. Call [facility] ([phone]) or report to the closest Emergency Room. Call 911 if necessary. 09/08/18 0145 <Electronically signed by Uzair Estrella MD> Date Uzair Estrella MD Cosigner Signature (If Indicated): Date CC: Jm Luo MD BRAIN/HEAD WITHOUT Observed: 09/07/2018 Status: F Source: [place] CONTRAST 11:05 PM [facility] Imaging Services [address] [place] [address] Brain/Head without Contrast MR#: [id number] Acct: [id number] Name: DONIS FERRER Rep #: [id number] : 1985 M 33 From: Cody Martinez MD PCP: Jm Luo MD Status: REG ER Study: Brain/Head without Contrast Date of Exam: 09/07/18 Exam# [id number] Ordering Dr: Uzair Estrella MD HISTORY: 2ANXIETY [...] CC: Uzair Estrella MD; Jm Luo MD Aeronautical Drafter: Signed 12 LEAD ELECTROCARDIOGRAM Observed: 08/19/2018 Status: F Source: [place] 3:51 PM [facility] Cardiovascular Services [address] [place] [address] 12 Lead EKG 08/17/18 2255 MR#: [id number] Acct: [id number] Name: DONIS FERRER Rep #: [id number] : 1985 33 From: Anthony Saba MD [...] ECG Confirmed by JASSON RODAS, ANTHONY ([id number]), index editor MADY VALENZUELA (56) on 08/19/2018 3:51:36 PM Referred By: CLARITZA Confirmed By:ANTHONY SABA MD 08/19/18 1551 Date Anthony Saba MD CC: Mark Abdalla MD; Jm Luo MD Signed DISCHARGE INSTRUCTION Observed: 08/18/2018 Status: F Source: [place] 12:56 AM [facility] Medical Records Department [address] [place] [address] Discharge Instruction 08/17/18 2303 MR#: [id number] Acct: [id number] Name: DONIS FERRER Rep #: [id number] : 1985 33 From: Mark Abdalla MD [...] your Primary Care Provider. Call [facility] ([phone]) or report to the closest Emergency Room. Call 911 if necessary. 08/18/18 0056 <Electronically signed by Mark Abdalla MD> Date Mark Abdalla MD Cosigner Signature (If Indicated): Date CC: Jm Luo MD EMERGENCY DEPARTMENT Observed: 08/18/2018 Status: F Source: [place] SUMMARY 12:56 AM [facility] Medical Records Department [address] [place] [address] Emergency Department Summary 08/17/18 2301 MR#: [id number] Acct: [id number] Name: DONIS FERRER Rep #: [id number] : 1985 33 From: Mark Abdalla MD [...] [] Palpitations This note was generated with [employer]Innovation dictation software. It may contain incorrect words, [...] problems, contact your Primary Care Provider. Call [facility] ([phone]) or report to the closest Emergency Room. Call 911 if necessary. 08/18/18 0056 <Electronically signed by Mark Abdalla MD> Date Mark Abdalla MD Cosigner Signature (If Indicated): Date CC: Jm Luo MD CHIROPRACTIC REPORT Observed: 08/14/2018 Status: F Source: [place] 11:06 AM [facility] [address] [place] [address] OFFICE VISIT Date of Service: 08/06/18 MR#: [id number] Acct: [id number] Name: DONIS FERRER Rep #: [id number] : 1985 Provider: Jennifer Hayden D.C. Age/Sex: 33/M Location: [facility] Status: Signed Intake Vital Signs08/06/18 Height 6 [...] mg PO DAILY 08/11/18 [History Confirmed 08/11/18] [facility] Medical History Anxiety (Acute) Arthritis (Acute) Back pain (Acute) Limb weakness (Acute) Panic attacks (Acute) [place] teeth removed (Acute) Family History Other Anxiety [...] Additional Codes Procedures - Manipulation: 3-4 regions (26273) 08/14/18 1106 <Electronically signed by Jennifer Hayden D.C.> Date Jennifer Hayden D.C. Cosigner Signature: Date (if applicable) CC: EMERGENCY DEPARTMENT Observed: 08/11/2018 Status: F Source: [place] SUMMARY 8:23 PM [facility] Medical Records Department [address] [place] [address] Emergency Department Summary 08/11/18 1823 MR#: [id number] Acct: [id number] Name: DONIS FERRER Rep #: [id number] : 1985 33 From: Jesus Barr DO [...] Impression: Anxiety This note was generated with [employer] dictation software. It may contain incorrect words, [...] problems, contact your Primary Care Provider. Call [facility] ([phone]) or report to the closest Emergency Room. Call 911 if necessary. 08/11/182022 <Electronically signed by Jesus Barr DO> Date Jesus Victor Mcarson DO Cosigner Signature (If Indicated): Date CC: Jm Luo MD URINALYSIS, COMPLETE Collected: 08/11/2018 Status: F Source: [place] 6:40 PM [facility] REPOSITORY Order Comment: Order Date: 08/11/18 How [...] URINE SEEN Performed By: #### L400.0001 #### [facility] [address] [place], [address] CBC W/DIFF, AUTOMATED Collected: 08/11/2018 Status: F Source: [place] 6:30 PM [facility] REPOSITORY TYPE CODE TESTS RESULT OUT OF [...] Lymph 1.34 Performed By: #### L100.0100 #### [facility] [address] [place], [place], [address] BASIC METABOLIC Collected: 08/11/2018 Status: F Source: [place] PROFILE (BMP) 6:30 PM [facility] REPOSITORY TYPE CODE TESTS RESULT OUT OF [...] Normal 5 Performed By: #### L500.2500 #### [facility] [address] [facility] [place], [address] ALCOHOL, BLOOD Collected: 08/11/2018 Status: F Source: [place] (MEDICAL)-SERUM 6:30 PM [facility] REPOSITORY TYPE CODE TESTS RESULT OUT OF [...] fatal coma Performed By: #### L501.9100 #### [facility] [address] [facility] [place], [place], [address] CHIROPRACTIC REPORT Observed: 08/01/2018 Status: F Source: [place] 4:58 PM [facility] REPOSITORY [facility] [address] [place] [address] OFFICE VISIT Date of Service: 08/01/18 MR#: [id number] Acct: [id number] Name: DONIS FERRER Rep #: [id number] : 1985 Provider: Jennifer Hayden D.C. Age/Sex: 33/M Location: [facility] Status: Signed Intake Vital Signs08/01/18 Height 6 [...] weakness (Acute) Panic attacks (Acute) Surgical History [place] teeth removed (Acute) Family History Other Anxiety [...] Additional Codes Procedures - Manipulation: 3-4 regions (43615) 08/01/18 8508 <Electronically signed by Jennifer Hayden D.C.> Date Jennifer Hayden D.C. Cosigner Signature: Date (if applicable) CC: HISTORY AND Observed: 07/31/2018 Status: F Source: [facility] PHYSICAL-DICTATED 3:58 PM [facility] REPOSITORY [facility] [address] [address] NAME DONIS FERRER [facility] [id number] 1985 ADMIT 07/05/2018 HISTORY AND PHYSICAL IDENTIFICATION DATA Donis Anglin is a 33 years young, single, psychiatrically disabled male who was readmitted to [facility] for the second time as an emergency from [place], [place]. CHIEF COMPLAINT I have a constant [...] reported that currently he sees psychiatrist at [facility] in [place], [place], who has reduced his Lexapro to 5 mg a day due to side effects of decreased libido. He also reported taking Latuda 40 mg a day. PAST PSYCHIATRIC HISTORY He reported that when he was about 9 or 10 years old he received outpatient treatment at [facility] in [place], [place], for a couple of years. During adolescent years, he has been treated for depression, anxiety, and ADHD. Once he turned 17, he dropped out of treatment. He has been attending [facility] off and on since the age of 25, and this time he has been going to the [facility] since December 2017. Only admission to [facility] was in May 2018 with similar history [...] to 7 days. MD Antonio DE LA UFENTE 07/06/2018 10:47 [id number] 07/06/2018 11:13 CPP/MODL Electronically Signed By Chato Lujan M.D. on 22 Jul 2018 15:21:19 GMT HISTORY AND Observed: 07/31/2018 Status: F Source: [facility] PHYSICAL-DICTATED 3:[address] [place] [id number] NAME DONIS FERRER [facility] [id number] 1985 DATE 07/07/2018 PROGRESS NOTE Donis was [...] MD Antonio DE LA FUENTE 07/07/2018 15:51 [id number] 07/07/2018 16:30 CPP/MODL Electronically Signed By Chato Lujan M.D. on 22 Jul 2018 15:21:29 GMT HISTORY AND Observed: 07/31/2018 Status: F Source: [facility] PHYSICAL-DICTATED 3:58 [address] [place] [address] NAME DONIS FERRER [facility] [id number] 1985 ADMIT 07/05/2018 DISCH 07/10/2018 DISCHARGE SUMMARY REASON FOR ADMISSION Donis Ferrer is a 33-year-old, young, single, psychiatrically-disabled male who was admitted with history of constant fear of , chest pain, palpitation and feeling that he would be better off . Prior to this admission, he was [facility] [place], [place], where he had reduced Lexapro to [...] discharged with recommendations to follow up at [facility] in [place], [place]. CONDITION AT THE TIME OF DISCHARGE Improved. MD Antonio DE LA FUENTE 07/31/2018 15:58 [id number] T 07/31/2018 17:26 CPP/MODL Electronically Signed By Chato Lujan M.D. on 07 Aug 2018 15:02:20 T CHIROPRACTIC REPORT Observed: 07/24/2018 Status: F Source: [place] 8:57 AM [facility] [address] [place] [address] OFFICE VISIT Date of Service: 07/23/18 MR#: [id number] Acct: [id number] Name: DONIS FERRER Rep #: [id number] : 1985 Provider: Jennifer Hayden D.C. Age/Sex: 33/M [place] [facility] [place]: Signed Intake Vital Signs07/23/18 Height 6 [...] weakness (Acute) Panic attacks (Acute) Surgical History [place] teeth removed (Acute) Family History Other Anxiety [...] Additional Codes Procedures - Manipulation: 3-4 regions (42456) 07/24/18 0857 <Electronically signed by Jennifer Hayden D.C.> Date Jennifer Hayden D.C. Cosigner Signature: Date (if applicable) CC: HIV 12 COMBO (AG/AB) Collected: 07/19/2018 Status: F Source: [place] 12:20 PM [facility] REPOSITORY TYPE CODE TESTS RESULT OUT [...] diagnoses. Performed By: #### HIV12C, HREMOP #### [facility] [employer] [address] [place] [address] HEPATITIS REMOTE PANEL Collected: 07/19/2018 Status: F Source: [place] 12:20 PM [facility] REPOSITORY TYPE CODE TESTS RESULT OUT [...] antigen. Performed By: #### HIV12C, HREMOP #### [facility] [employer] [address] [place] [address] PROGRESS Observed: 07/18/2018 Status: COMPLETED Source: [place] 3:50 PM [facility] REPOSITORY HNO ID: [id number] Author: Jm Luo Service: (none) Author Type: Physician Type: Progress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 Drafter: Signed DISCHARGE INSTRUCTION Observed: 04/03/2018 Status: F Source: [place] 12:43 PM [facility] REPOSITORY [facility] Medical Records Department [address] [place] [address] Discharge Instruction 04/03/18 1242 MR#: [id number] Acct: [id number] Name: DONIS FERRER Rep #: [id number] : 1985 32 From: Alessandro Palumbo DO [...] your Primary Care Provider. Call [facility] ([phone]) or report to the closest Emergency Room. Call 911 if necessary. 04/03/18 1243 <Electronically signed by Alessandro Palumbo DO> Date Alessandro Palumbo DO Cosigner Signature (If Indicated): Date CC: Jennifer Bailey DO EMERGENCY DEPARTMENT Observed: 04/03/2018 Status: F Source: [place] SUMMARY 12:42 PM [facility] REPOSITORY [facility] Medical Records Department [address] [place] [address] Emergency Department Summary 04/03/18 1240 MR#: [id number] Acct: [id number] Name: DONIS FERRER Rep #: [id number] : 1985 32 From: Alessandro Palumbo DO [...] vehicle accident] This note was generated with [employer]Innovation dictation software. It may contain incorrect words, [...] your Primary Care Provider. Call [facility] ([phone]) or report to the closest Emergency Room. Call 911 if necessary. 04/03/18 1242 <Electronically signed by Alessandro Palumbo DO> Date Alessandro Kathleen Signature (If Indicated): Date CC: Jennifer Bailey DO CERV SPINE 2 OR 3 Observed: 04/03/2018 Status: F Source: [place] VIEWS 11:36 AM [facility] REPOSITORY [facility] Imaging Services [address] [place] [address] Cerv Spine 2 or 3 Views MR#: [id number] Acct: [id number] Name: DONIS FERRER Rep #: [id number] : 1985 M 32 From: Ross Ortiz MD PCP: Jennifer Bailey DO Status: REG ER Study: Cerv Spine 2 or 3 Views Date of Exam: 04/03/18 Exam# [id number] Ordering Dr: Alessandro Palumbo DO STUDY: X-RAY [...] Ross Ortiz MD at 12:31 EDT Tel [phone], Service support , CC: Jennifer Bailey DO; Alessandro Palumbo DO Aeronautical Drafter: Signed CNOV Observed: 03/28/2018 Status: COMPLETED Source: [place] 2:00 PM [facility] REPOSITORY Office Visit (INTMWS) DONIS FERRER ([id number]) 1985 M Date Time Provider Department 03/28/18 2:00 PM WHITLEY FLORES (TUCKER) INTMWS During your visit today, we recorded the following information about you: Temperature Pulse Respiration Blood pressure 97.5 degrees 76/minute 16/minute 117/87 Weight 101.2 kg Whitley Flores APRN.CNP 03/28/2018 3:00 PM Signed CC: Patient presents [...] Patient agreeable to treatment plan. Whitley Flores APRN.JACQUARD LOOM WEAVER Referring Provider: SELF [200] Allergies As of Date: 03/28/2018 (No Known Allergies) Date Reviewed: 03/28/2018 Reviewed by: Lazara Silva Casting House Laborer - Fully Assessed Reason for Visit: Results [...] 03/28/18 PROGRESS Observed: 03/28/2018 Status: COMPLETED Source: [place] 1:48 PM [facility] REPOSITORY O ID: [id number] Author: Whitley Hurt) Jose Alfredo Service: (none) Author Type: Nurse Practitioner Type: [...] occur. Patient agreeable to treatment plan. Whitley Flores, RISK MANAGEMENT SPECIALIST.JACQUARD LOOM WEAVER VITAMIN D 25 HYDROXY Collected: 03/19/2018 Status: F Source: [place] 11:52 AM [facility] REPOSITORY TYPE CODE TESTS RESULT OUT OF REFERENCE UNITS RANGE LAB VITD 31.0-80.0 ng/mL Low Vitamin D 25 24.4 Hydroxy Result Comment: Classification of 25 [place] Vitamin D status: Insufficiency/Moderate Deficiency: < or = 30 ng/mL Sufficiency/Optimal Levels: 31 to 80 ng/mL Toxicity: > 100 ng/mL Test performed by chemiluminescent immunoassay. Performed By: #### VITD, BMP, LIPB, TSH #### [facility] [address] [place], [place] [address] BASIC METABOLIC PANL Collected: 03/19/2018 Status: F Source: [place] 11:52 AM [facility] REPOSITORY TYPE CODE TESTS RESULT OUT OF REFERENCE UNITS RANGE LAB GLU 74-99 mg/dL Glucose 91 Result Comment: The [place] Diabetes Association (ADA) provides guidance for cutoff [...] Standards of Medical Care in Diabetes 2016, [place] Diabetes Association. Diabetes Care. 2016.39(Suppl 1). LAB [...] By: #### VITD, BMP, LIPB, TSH #### [facility] [address] [place], [place] [address] LIPID PANEL, BASIC Collected: 03/19/2018 Status: F Source: [place] 11:52 AM [facility] REPOSITORY TYPE CODE TESTS RESULT OUT OF [...] Desk Reference: National Heart, Lung, and Blood [place]. National Institutes of Health. 2001: NIH Publication No. 01-3305. 2. An International Atherosclerosis Society position paper: global recommendations for the management of dyslipidemia: executive summary, Atherosclerosis. 2014: 232(2):410-413. Performed By: #### VITD, BMP, LIPB, TSH #### [facility] [address] [place], [place] [address] TSH Collected: 03/19/2018 Status: F Source: [place] 11:52 AM [facility] REPOSITORY TYPE CODE TESTS RESULT OUT OF RANGE REFERENCE UNITS LAB TSH 0.400-5.500 uU/mL TSH 1.990 Performed By: #### VITD, BMP, LIPB, TSH #### [facility] [address] [place], [place] [address] CNOV Observed: 03/19/2018 Status: COMPLETED Source: [place] 11:20 AM [facility] REPOSITORY Office Visit (INTMWS) DONIS FERRER ([id number]) 1985 M Date Time Provider Department 03/19/18 [...] a couple months ago. Current PCP: Jennifer Leo. No plans to transfer care here at [...] Date Reviewed: 03/19/2018 Reviewed by: Lazara Silva [employer] House Laborer - Fully Assessed Reason for Visit: Physical [83] Primary Visit Diagnosis:Well adult exam [Z00.00] Other Visit Diagnoses:Pain of left scapula [M89.8X1] Abnormal TSH [R94.6] Encounter for lipid screening for cardiovascular disease [Z13.220, Z13.6] Vitamin D deficiency [E55.9] Order(s):LIPID PANEL BASIC [SQLIPB] Order #: [id number] FUTURE TSH BLD [SQTSH] Order #: [id number] FUTURE BASIC METABOLIC PNL [SQBMP] Order #: [id number] FUTURE VITAMIN D 25 HYDROXY [SQVITD] Order #: [id number] FUTURE Prescriptions as of 03/19/2018 Sig: HYDROXYZINE [...] 03/19/18 PROGRESS Observed: 03/19/2018 Status: COMPLETED Source: [place] 11:12 AM [facility] [place] REPOSITORY O ID: [id number] Author: Whitley Hurt) Older Service: (none) Author Type: Nurse Practitioner [...] - VITAMIN D 25 HYDROXY Whitley Older, RISK MANAGEMENT SPECIALIST.JACQUARD LOOM WEAVER THYROID STIM HORMONE Collected: 02/15/2018 Status: F Source: [place] (TSH) 2:51 PM [facility] REPOSITORY TYPE CODE TESTS RESULT OUT OF RANGE REFERENCE UNITS LAB L501.9520 0.358-3.74 uIU/mL Normal TSH 1.76 Performed By: #### L501.9520 #### [facility] [address] [facility] [place], [address] EMERGENCY DEPARTMENT Observed: 01/13/2018 Status: F Source: [place] SUMMARY 11:05 PM [facility] REPOSITORY [facility] Medical Records Department [address] [place] [address] Emergency Department Summary 01/13/18 2259 MR#: [id number] Acct: [id number] Name: DONIS FERRER Rep #: [id number] : 1985 32 From: Dwight Payan MD [...] degenerative arthritis This note was generated with AdInnovation dictation software. It may contain incorrect words, [...] your Primary Care Provider. Call [facility] ([phone]) or report to the closest Emergency Room. Call 911 if necessary. 01/13/18 0343 <Electronically signed by Dwight Payan MD> Date Dwight Payan MD Cosigner Signature (If Indicated): Date CC: DEFINED NOT PROGRESS Observed: 12/31/2017 Status: COMPLETED Source: [place] 2:14 PM [facility] REPOSITORY HNO ID: [id number] Author: Анна Fagan Service: (none) Author Type: [...] CODE NAME / CODE REACTION SEVERITY SOURCE 11/20/2018 Drug No Known Unknown [place] Allergy/416 Allergies/N40766 Community 034415(SNOM 0388(RXNORM) Hospital ED CT) Repository 07/02/2018 DRUG GABAPENTIN INTOLERANCE [facility] INGREDI/419 [address] [place] 811522(SNOM Repository ED CT) Drug NO KNOWN [facility] Class/44763 ALLERGIES Main [facility] 1003(SNOMED Repository CT) ENCOUNTERS ENCOUNTERS ADMIT/DISCHARGE ACCOUNT ADMITTING ENCOUNTER LOCATION SOURCE NUMBER CLASS 11/20/2018/11/20/19 [id number] Emergency [facility] ding:ED Repository 10/13/2018/10/13/20 [id number] Emergency [address] ding:ED Repository 10/05/2018/10/06/20 [id number] Emergency [place] ding:ED Repository 09/24/2018/09/25/20 [id number] Emergency [address] ding:ED Repository 09/13/[id number] Indu [facility] Repository 09/13/2018/09/14/20 [id number] Emergency [address] ding:ED Repository 09/07/2018/09/08/20 [id number] Emergency [address] ding:ED Repository 08/17/2018/08/17/20 [id number] Emergency [address] ding:ED Repository 08/11/2018/08/11/20 [id number] Emergency [address] ding:ED Repository 08/06/2018/08/06/20 [id number] Ambulatory BMSBuilding: [place] 18 BMS.[facility] Repository 08/01/2018/08/01/20 [id number] Ambulatory BMSBuilding: [place] 18 BMS.[facility] Repository 07/24/2018/07/24/20 [id number] Ambulatory [address] ding:PT Repository 07/23/2018/07/23/20 [id number] Ambulatory BMSBuilding: [place] 18 BMS.[facility] Repository 07/19/2018/07/19/20 [id number] Ambulatory [address] Repository 07/18/2018/07/19/20 [id number] Ambulatory [address] Repository 07/11/2018 [id number] Ambulatory BMSBuilding: [place] BMS.[facility] Repository 07/05/2018/07/10/[id number] Tai Inpatient [place] [address] Chandravadan P Encounter lding:B33B [place] [facility]/AdultR Jolene oom: 3B [facility] 3315Bed: Repository [facility] [id number] 07/04/2018/07/05/20 [id number] Emergency [place] ding:ED Repository 07/02/2018/07/03/20 [id number] Ambulatory [address] Repository 07/01/2018/07/01/20 [id number] Ambulatory BMSBuilding: [place] 18 BMS.[facility] Repository 06/26/2018/06/26/20 [id number] Emergency [address] ding:ED Repository 06/25/2018/06/25/20 [id number] Ambulatory BMSBuilding: [place] 18 BMS.[facility] Repository 06/22/2018/06/22/20 [id number] Emergency [address] ding:ED Repository 05/31/2018/06/10/[id number] Indu Inpatient [place] [address] Dave K Encounter lding:B33B [place] [facility]/AdultR Jolene oom: [address] [address]Bed: Repository [facility] [id number] 05/30/2018/05/31/20 [id number] Emergency [place] [address] [place] [address] ding:ED Repository 05/24/2018/05/24/20 [id number] Ambulatory BMSBuilding: [place] 18 BMS.[facility] Repository 04/17/2018/04/17/20 [id number] Emergency [place] ding:ED Repository 04/03/2018/04/03/20 [id number] Emergency [address] ding:ED Repository 03/28/2018/03/29/20 [id number] Ambulatory [address] Repository 03/19/2018 [id number] Ambulatory [facility] Repository 03/19/2018/03/25/20 [id number] Ambulatory [address] Repository 02/15/2018 [id number] Ambulatory [facility] ding:LAB Repository 01/13/2018/01/14/20 [id number] Emergency [address] ding:ED Repository 12/31/2017/12/31/19 [id number] Ambulatory [address] Repository PAYERS PAYERS ENCOUNTER GUARANTOR PAYER SUBSCRIBER SOURCE 11/20/2018 DONIS GONZALEZ Primary Insurance:[facility] DONIS [address] [id number] [facility] PLANPolicy THOMPSONDOB: [facility] Number: [id number] [place], [place] [id number] Repository [address]Ofd: (330) Date:9899-37-54YN [phone] () [address] [place], [place] [address]WP: 11/20/2018 Secondary NOT GIVENUNK [place] Insurance:SELF PAY [facility] Number: Effective Repository Date:2018-11-20 10/13/2018 DONIS Nubia Primary Insurance:[facility] DONIS [place] [id number] [facility] PLANPolicy THOMPSONDOB: [facility] Number: [id number] [place], [place] [id number] Repository [address]Nqu: (330) Date:6905-95-90FG [phone] () [address] [place] [address] 73947FV: 10/13/2018 Secondary NOT GIVENUNK [place] Insurance:SELF PAY [facility] Number: Effective Repository Date:2018-10-13 10/05/2018 DONIS Nubia Primary Insurance:[facility] DONIS [place] [id number] [facility] PLANPolicy THOMPSONDOB: [facility] Number: [id number] Beach, [place] [id number] Repository [address]Zhb: (330) Date:8811-28-44QE [phone] () [address] [place] [address] 49423HD: 10/05/2018 Secondary NOT GIVENUNK [place] Insurance:SELF PAY [facility] Number: Effective Repository Date:2018-10-05 09/24/2018 DONIS A Primary Insurance:[facility] DONIS A [place] [id number] E COMMUNITY PLANPolicy THOMPSONDOB: [facility] GARCIA Number: [id number] Beach, [place] [id number] Repository [address]Bsj: (330) Date:5802-98-76NK [phone] () [address] [place] [address] 21520PF: 09/24/2018 Secondary NOT GIVENUNK [place] Insurance:SELF PAY [facility] Number: Effective Repository Date:2018-09-24 09/13/2018 Primary DONIS A [facility] Insurance:[facility] THOMPSONDOB: [facility] [address]Pol[facility] [id number] Number: 8 [facility] Repository [id number] STREETWOOST[place], Date:[facility] [address]Imc: Name:[facility] [address] [place] [address] () [address]85[address]RC: 09/13/2018 DONIS A Primary Insurance:[facility] DONIS A [place] [id number] [facility] PLANPolicy THOMPSONDOB: [facility] Number: [id number] Beach, [place] [id number] Repository [address]Jyj: (330) Date:2041-16-82NR [phone] () [address] [place] [address] 27093PU: 09/13/2018 Secondary NOT GIVENUNK [place] Insurance:SELF PAY [facility] Number: Effective Repository Date:2018-09-13 09/07/2018 DONIS A Primary Insurance:[facility] DONIS A [place] [id number] E [address]UN[address] PLANPolicy THOMPSONDOB: [facility] Number: [id number] Beach, [place] [id number] Repository [address]Fht: (330) Date:2634-64-87DC [phone] () [address] [place] [address] 46023HH: 09/07/2018 Secondary NOT GIVENUNK [place] Insurance:SELF PAY [facility] Number: Effective Repository Date:2018-09-07 08/17/2018 DONIS A Primary Insurance:[facility] DONIS A [place] [id number] E COMMUNITY PLANPolicy THOMPSONDOB: [facility] Number: [id number] Beach, [place] [id number] Repository [address]Lil: (330) Date:9756-71-30KP [phone] () [address] [place] [address] 46851PU: 08/17/2018 Secondary NOT GIVENUNK [place] Insurance:SELF PAY [facility] Number: Effective Repository Date:2018-08-17 08/11/2018 DONIS A Primary Insurance:[facility] DONIS A [place] [id number] E [address]UN[address] PLANPolicy THOMPSONDOB: [facility] Number: [id number] [place], [place] [id number] Repository [address]Xdp: (330) Date:3381-44-17AD [phone] () [address] [place], [place] [address]WP: 08/11/2018 Secondary NOT GIVENUNK [place] Insurance:SELF PAY [facility] Number: Effective Repository Date:2018-08-11 08/06/2018 DONIS A Primary Insurance:[facility] DONIS A [place] [id number] E [address]UN[address] PLANPolicy THOMPSONDOB: [facility] Number: [id number] Beach, [place] [id number] Repository [address]Tjx: (330) Date:1653-72-61BA [phone] () [address] [place] [address] 29197VI: 08/06/2018 Secondary NOT GIVENUNK [place] Insurance:SELF PAY [facility] Number: Effective Repository Date:2018-08-06 08/01/2018 DONIS A Primary Insurance:[facility] DONIS A [place] [id number] E [address]UN[address] PLANPolicy THOMPSONDOB: [facility] Number: [id number] [place], [place] [id number] Repository [address]Lab: (330) Date:9524-35-22GA [phone] () [address] [place] [address] 44210GD: 08/01/2018 Secondary NOT GIVENUNK [place] Insurance:SELF PAY [facility] Number: Effective Repository Date:2018-08-01 07/24/2018 DONIS A Primary Insurance:[facility] DONIS A [place] [id number] E COMMUN[address] PLANPolicy THOMPSONDOB: [facility] Number: [id number] [place], [place] [id number] Repository [address]Ukl: (330) Date:8015-72-01PP [phone] () [address] [place] [address] 84062GQ: 07/24/2018 Secondary NOT GIVENUNK [place] Insurance:SELF PAY [facility] Number: Effective Repository Date:2018-05-24 07/23/2018 DONIS A Primary Insurance:[facility] DONIS A [place] [id number] E COMMUN[address] PLANPolicy THOMPSONDOB: [facility] Number: [id number] [place], [place] [id number] Repository [address]Fay: (330) Date:2808-81-13WH [phone] () [address] [place] [address] 44317FM: 07/23/2018 Secondary NOT GIVENUNK [place] Insurance:SELF PAY [facility] Number: Effective Repository Date:2018-07-23 07/11/2018 DONIS A Primary Insurance:[facility] DONIS A [place] [id number] E COMMUN[address] PLANPolicy THOMPSONDOB: [facility] Number: [id number] Beach, [place] [id number] Repository [address]Lyi: (330) Date:2248-83-84TR [phone] () [address] [place] [address] 47516QE: 07/11/2018 Secondary NOT GIVENUNK [place] Insurance:SELF PAY [facility] Number: Effective Repository Date:2018-07-01 07/05/2018 Primary DONIS A [facility] Insurance:[facility] THOMPSONDOB: [facility] 8207Pol[facility] [id number] Number: 8 [facility] Repository [id number] [facility], Date:Plan [place] [address]Ziq: Name:[facility] [address] [place] [address] () 311[address]KX: 07/04/2018 DONIS A Primary Insurance:[facility] DONIS A [place] [id number] E COMMUNITY PLANPolicy THOMPSONDOB: [facility] [place]: [id number] [place], [place] [id number] Repository 02832Xqa: (330) Date:0398-24-21RD [phone] () [address] [place] [address] 74379SQ: 07/04/2018 Secondary NOT GIVENUNK [place] Insurance:SELF PAY [facility] Number: Effective Repository Date:2018-07-04 07/01/2018 DONIS A Primary Insurance:[facility] DONIS A [place] [id number] E COMMUNITY PLANPolicy THOMPSONDOB: [facility] [place]: [id number] Beach, [place] [id number] Repository 81548Qbc: (330) Date:3070-90-24KJ [phone] () [address] [place] [address] 81202SP: 07/01/2018 Secondary NOT GIVENUNK [place] Insurance:SELF PAY [facility] Number: Effective Repository Date:2018-07-01 06/26/2018 DONIS A Primary Insurance:[facility] DONIS A [place] [id number] E COMMUNITY PLANPolicy THOMPSONDOB: [facility] [place] Number: [id number] Beach, [place] [id number] Repository 81105Dqz: (330) Date:4109-11-24HD [phone] () [address] [place] [address] 65858KQ: 06/26/2018 Secondary NOT GIVENUNK [place] Insurance:SELF PAY [facility] Number: Effective Repository Date:2018-06-26 06/25/2018 DONIS A Primary Insurance:[facility] DONIS A [place] [id number] E COMMUNITY PLANPolicy THOMPSONDOB: [facility] [place] Number: [id number] Beach, [place] [id number] Repository 59809Bnv: (330) Date:7904-92-00MW [phone] () [address] [place] [address] 55222EH: 06/25/2018 Secondary NOT GIVENUNK [place] Insurance:SELF PAY [facility] Number: Effective Repository Date:2018-06-25 06/22/2018 DONIS A Primary Insurance:[facility] DONIS A [place] [id number] E COMMUNITY PLANPolicy THOMPSONDOB: [facility] [place] Number: [id number] Beach, [place] [id number] Repository 17416Xwr: (330) Date:6385-88-17IF [phone] () [address] [place] [address] 46740UQ: 06/22/2018 Secondary NOT GIVENUNK [place] Insurance:SELF PAY [facility] Number: Effective Repository Date:2018-06-22 05/31/2018 Primary DONIS A [facility] Insurance:[facility] THOMPSONDOB: [facility] [address] [id number] Number: [facility] [id number], Date:Plan [place] [address]Yme: Name:[facility] [address] [place] [address] () 53860SG: 05/30/2018 DONIS A Primary Insurance:[facility] DONIS A [place] [id number] E COMMUNITY PLANPolicy THOMPSONDOB: [facility] [place] Number: [id number] Beach, [place] [id number] Repository 85981Esy: (330) Date:5520-18-99MX [phone] () [address] [place] [address] 53691MI: 05/30/2018 Secondary NOT GIVENUNK [place] Insurance:SELF PAY [facility] Number: Effective Repository Date:2018-05-30 05/24/2018 DONIS A Primary Insurance:[facility] DONIS A [place] [id number] E COMMUNITY PLANPolicy THOMPSONDOB: [facility] [place] Number: [id number] Beach, [place] [id number] Repository 10986Azk: (330) Date:9839-01-89FR [phone] () [address] [place] [address] 12309RT: 05/24/2018 Secondary NOT GIVENUNK [place] Insurance:SELF PAY [facility] Effective Repository Date:2018-05-24 04/17/2018 DONIS A Primary Insurance:[facility] DONIS A [place] [id number] E COMMUNITY PLANPolicy THOMPSONDOB: [facility] [place] Number: [id number] Beach, [place] [id number] Repository 87679Utm: (330) Date:8617-67-14NB [phone] () [address] [place] [address] 07850RX: 04/17/2018 Secondary NOT GIVENUNK [place] Insurance:SELF PAY [facility] Number: Effective Repository Date:2018-04-17 04/03/2018 DONIS A Primary Insurance:[facility] DONIS A [place] [id number] E COMMUNITY PLANPolicy THOMPSONDOB: [facility] [place] Number: [id number] Beach, [place] [id number] Repository 75414Lje: (330) Date:0062-51-30GR [phone] () [address] [place] [address] 30931BB: 04/03/2018 Secondary NOT GIVENUNK [place] Insurance:SELF PAY [facility] Number: Effective Repository Date:2018-04-03 02/15/2018 DONIS A Primary Insurance:[facility] DONIS A [place] [id number] E COMMUNITY PLANPolicy THOMPSONDOB: [facility] [place] Number: [id number] Beach, [place] [id number] Repository 33920Axr: (330) Date:7497-03-03IJ [phone] () [address] [place] [address] 72150IY: 02/15/2018 Secondary NOT GIVENUNK [place] Insurance:SELF PAY [facility] Number: Effective Repository Date:2018-02-15 01/13/2018 DONIS Delacruz Primary Insurance:[facility] DONIS [id number] [facility] CARLODOB: [facility] [place] Number: [id number] [place], [place] [id number] Repository 67825Guh: 330) Date:6156-25-11AD [phone] () [address] [place] [address] 43870WE: 01/13/2018 Secondary NOT GIVENGRIFFIN Haro Insurance:SELF PAY [facility] Number: Effective Repository Date:2018-01-13
== END 2018-11-20 23:02 | disposition home or self-care (01) ==
LOC: ED 22:56
PROVIDERS: Emergency Provider Emergency Medicine; Family Provider Internal Medicine; PCP Internal Medicine
DX: R51 Headache (principal); R25.3 Fasciculation; F41.9 Anxiety disorder, unspecified; F32.9 Major depressive disorder, single episode, unspecified; Z79.899 Other long term (current) drug therapy
CPT/HCPCS: 99284

== ENCOUNTER 2018-12-21 00:15 | Emergency (ER) | payer MEDICAID, SELFPAY ==
[2018-12-21 00:17] VITALS: BP 130/85; PULSE 80; RESP 15; TEMP 36.9; O2SAT 98; BMI 32.5
--- NOTE | 2018-12-21 01:08 | ED.DCSUM_ITS ---
- ER Visit Summary Date of Service: 12/21/18 Chief Complaint: [] Anxiousness panic attack History of Present Illness: The patient is a 33 M she of anxiety felt like he had a panic attack tonight prior to coming in. He took the hydroxyzine but still feels like he has panic. He is normally on Ativan and Zoloft. He only has 1/2 mg Ativan left. He has a refill on Sunday. He has had frequent visits for this. Physical Examination: Vital signs reviewed General: Well-nourished well-developed Head: Normocephalic atraumatic Eyes: Pupils equal round and reactive to light extraocular movements intact ENT: TMs clear no hemotympanum no trauma Neck: Nontender full range of motion Cardiovascular: Regular rate rhythm no murmurs normal S1-S2 Respiratory: No distress clear to auscultation bilaterally chest nontender Abdomen: Soft nontender nondistended normal bowel sounds no masses Back: Nontender no CVA tenderness Extremities: Nontender active range of motion ?4 extremities no trauma Skin: Normal color no trauma Neuro alert oriented cranial nerves II through XII intact normal strength sensation reflexes Test Results: [] Emergency Department Course and Treatment: [] Given 1 mg Ativan orally. Resting comfortably. I feel he can be discharged. We will follow-up as an outpatient. Treatment Plan: [] Disposition: [] Impression: [] Anxiety with panic attack This note was generated with [employer] dictation software. It may contain incorrect words, spelling, and punctuation that were not noted in review of the chart prior to signing ED Disposition - Plan for ED Patient: Referrals: Jm Ty MD [Primary Care Provider] -
--- NOTE | 2018-12-21 01:08 | ED.DEP ---
ED Disposition - Plan for ED Patient: Disposition: Home or Assisted Living Instructions: ED Panic Attack Referrals: Jm Ty MD [Primary Care Provider] -
[2018-12-21] MEDS: LORazepam 1 MG Tablet PO (01:29)
[2018-12-21 01:31] VITALS: BP 125/84; PULSE 78; RESP 16; O2SAT 100
== END 2018-12-21 01:32 | disposition home or self-care (01) ==
PROVIDERS: Emergency Provider Emergency Medicine; Family Provider Internal Medicine; PCP Internal Medicine
DX: F41.0 Panic disorder [episodic paroxysmal anxiety] (principal); Z79.899 Other long term (current) drug therapy
CPT/HCPCS: 99284

== ENCOUNTER 2019-03-29 20:19 | Emergency (ER) | payer MEDICAID, SELFPAY ==
[2019-03-12 10:00] VITALS: BMI 33.5
[2019-03-29 20:20] VITALS: BP 134/72; PULSE 78; RESP 15; TEMP 36.7; BMI 33.9
--- NOTE | 2019-03-29 21:07 | ED.DCSUM_ITS ---
- ER Visit Summary Date of Service: 03/29/19 Chief Complaint: left neck pain and dizziness History of Present Illness: The patient is a 33 M who presents for 1 day of dizziness and worsening left-sided neck pain. Patient states today whenever he moves his head one way or the other, he has a brief episode of dizziness. He is also complaining of worsening left-sided neck pain today. He has ongoing issues with neck pain and is seeing a chiropractor for this in the past but states it feels worse today. He has been doing increased exercise recently, heavy lifting. He denies any nausea, vomiting, vision changes, chest pain, shortness of breath, abdominal pain, headache, weakness or paresthesias in the arms or legs. Patient was weaned off of his Ativan 2 weeks ago, and is currently being weaned off of Zoloft, with a decrease in his dose that occurred 1 week ago. Patient has a history of panic attacks and depression. Physical Examination: Vital signs: afebrile, hemodynamically stable, no hypoxia on room air General: well nourished, well developed, in no distress Skin: warm, dry, no rash, no pallor HEENT: normocephalic and atraumatic; chronic pupillary defects: right dilated and ovoid, left constricted; dysconjugate gaze with leftward gaze; moist mucous membranes Neck: No midline tenderness, deformities or step-offs, full active range of motion without any discomfort, no masses, no paraspinal tenderness Cardiovascular: regular rate and rhythm without murmurs, no peripheral edema, 2+ pulses all distal extremities Respiratory: No increased work of breathing, lungs are clear to auscultation bilaterally, no rales, rhonchi or wheezing Abdominal: Abdomen is soft, nontender with normoactive bowel sounds, no guarding or rebound, no masses MSK: Moves all extremities, no deformities, normal strength Neuro: Awake and alert, oriented ?4. No facial droop, sensation and motor function intact and symmetric Test Results: Abnormal Lab Results 03/29/19 03/29/19 21:07 21:07 WBC 5.2 RBC 4.51 L Hgb 13.7 Hct 41.0 MCV 90.9 MCH 30.4 MCHC 33.4 RDW 14.4 RDW Differential 48.0 H Plt Count 192 MPV 10.6 Immature Gran % (Auto) 0.200 Neut % (Auto) 59.5 Lymph % (Auto) 28.6 [place] % (Auto) 6.9 Eos % (Auto) 4.4 Baso % (Auto) 0.4 Absolute Neuts (auto) 3.1 Absolute Lymphs (auto) 1.50 Total Counted Not Reportable Sodium 139 Potassium 3.8 Chloride 107 Carbon Dioxide 28.0 Anion Gap 4 L BUN 7 Creatinine 1.02 Estim Creat Clear Calc 112.00 Est GFR (MDRD) Af Amer 107 Est GFR (MDRD) Non-Af 88 BUN/Creatinine Ratio 6.9 L Glucose 91 Calcium 8.1 L TSH 2.26 Medications Given Discontinued Medications Sodium Chloride () 1,000 mls @ 1,000 mls/hr IV .Q1H ONE Stop: 03/29/19 21:57 Last Admin: 03/29/19 21:17 Dose: 1,000 mls/hr Ketorolac Tromethamine (Toradol) 15 mg IV X1 ONE Stop: 03/29/19 20:59 Last Admin: 03/29/19 21:17 Dose: 15 mg Emergency Department Course and Treatment: Patient has an unremarkable neck exam and has not had any recent chiropractic manipulation, thus vertebral artery dissection is low on the differential. Patient's episodes of dizziness are brief and intermittent, only when he is turning his head side to side. This is not consistent with a vertebral artery dissection or posterior circulation stroke. Patient has had the ongoing neck pain, and today it is worse than his baseline. He was given Toradol for the pain. The dizziness with him turning his head but is very brief and resolves when he stops moving his head may be a result of the medication changes he is undergone for the last 2 weeks area he has currently off of Ativan and is also being weaned off an SSRI, and the dizzy symptom may be a result of SSRI withdrawal. Electrolytes and thyroid function were checked. Patient was given IV fluids for hydration. He did receive Toradol for his complaint of pain. Patient has no acute focal deficits on exam. On reevaluation, patient's neck pain was improved. He also was not having dizziness any longer after receiving IV fluids. His electrolytes were unremarkable and thyroid function was normal. Discussed with patient that again recent medication changes he has had may be causing him to have the dizziness with head movement. He is to follow-up with his prescribing doctor to discuss his medications if he continues to have symptoms. He will return if any worsening of condition. Patient discharged home well-appearing and was symptoms improved. Treatment Plan: [] Disposition: [] Impression: Left musculoskeletal neck pain, suspected SSRI withdrawal syndrome This note was generated with [employer] dictation software. It may contain incorrect words, spelling, and punctuation that were not noted in review of the chart prior to signing ED Disposition - Plan for ED Patient: Disposition: Home or Assisted Living Instructions: ED Dizziness UKO, ED Neck Pain No Trauma Referrals: Jm Ty MD [Primary Care Provider] - 3-5 Days if not improving Additional Instructions: Please use your home [id number] pain medications as needed for your neck pain. Be very careful when lifting heavy objects or lifting heavy weights when exercising to use proper form to protect her neck. Your dizziness may be related to the medications you are being weaned off of. If you continue to have symptoms, please follow-up with your doctor for another evaluation. If at any time your symptoms worsen or you develop new concerning symptoms, return emergency department immediately for another evaluation.
[2019-03-29] MEDS: 0.9% Normal Saline 1,000 ML 1000 ML IV (21:17)
[2019-03-29] MEDS: Ketorolac 15 MG/ML Vial IV (21:17)
[2019-03-29 21:30] LABS: Absolute Neutrophil Count 3.1 X10^3/uL (2.0-7.7); Basophil# 0.02 X10^3/uL; Basophil% 0.4 % (0-1); Eosinophil# 0.23 X10^3/uL; Eosinophils% 4.4 % (0-5); Hemoglobin 13.7 g/dl (13.0-16.5); Lymphocyte % 28.6 % (19-41); Mean Corp Hgb Conc 33.4 g/gl (32-36); Mean Corpuscular Hgb 30.4 pg (27.0-32.0); Mean Corpuscular Volume 90.9 fL (80-94); Mean Platelet Vol. 10.6 fl (6.2-12.0); Monocyte# 0.36 X10^3/uL; Monocyte% 6.9 % (0-10); Neutrophil # 3.12 X10^3/uL (2.7-7.7); Neutrophil % 59.5 % (47-70); Platelet Count 192 K/mm3 (150-450); RBC Distribution Width CV 14.4 % (11.6-14.6); Red Blood Count 4.51 M/mm3 (4.6-6.2); White Blood Count 5.2 K/mm3 (4.4-11.0)
[2019-03-29 21:32] LABS: POSITIVE COUNT NO; POSITIVE DIFFERENTIAL NO; POSITIVE MORPHOLOGY NO
[2019-03-29 21:41] LABS: Anion Gap 4 (5-15); BUN 7 mg/dL (7-18); BUN/Creat Ratio 6.9 RATIO (10-20); Calcium,Total 8.1 mg/dL (8.5-10.1); Chloride 107 mmol/L (98-107); Creatinine, Serum 1.02 mg/dL (0.70-1.30); EST Glomerular Filtration Rate 88 mL/min (>60); Est Glom Filt Rate - Afr Amer 107 mL/min (>60); Glucose 91 mg/dL (74-106); Potassium 3.8 mmol/L (3.5-5.1); Sodium Level 139 mmol/L (136-145); Thyroid Stim Hormone (TSH) 2.26 uIU/mL (0.358-3.74)
[2019-03-29 22:07] VITALS: BP 123/70; PULSE 68; RESP 16
== END 2019-03-29 22:08 | disposition home or self-care (01) ==
PROVIDERS: Emergency Provider Emergency Medicine; Family Provider Internal Medicine; PCP Internal Medicine
DX: M54.2 Cervicalgia (principal); R42 Dizziness and giddiness; F32.9 Major depressive disorder, single episode, unspecified; F41.0 Panic disorder [episodic paroxysmal anxiety]; Z79.899 Other long term (current) drug therapy
CPT/HCPCS: 80048; 84443; 85025; 96361; 96374; 99283; J7030; A4216

== ENCOUNTER 2019-04-03 18:11 | Emergency (ER) | payer MEDICAID, SELFPAY ==
[2019-04-03 18:12] VITALS: BP 121/83; PULSE 86; RESP 16; TEMP 36; O2SAT 98; BMI 34.0
--- NOTE | 2019-04-03 19:22 | ED.RN ---
PT REPORTS SEEING RED RINGS LAST NIGHT WHEN TRYING TO SLEEP. I WAS SEEING RED RINGS, AND THEN I HEARD A BOOM. I WAS WORRIED ABOUT MY GUILLAUME. PT DENIES ANY HEADACHE, DIFFICULTY WITH VISION, WEAKNESS, OR TROUBLE BREATHING. PT REPORTS HE IS TAKING HIS MEDICATIONS ADS PRESCRIBED. REPORTS FEELING ANXIOUS TODAY AFTER SOMEONE WAS SHOUTING OUTSIDE AT A NEIGHBOR.
--- NOTE | 2019-04-03 20:05 | ED.DCSUM_ITS ---
History of Present Illness Chief Complaint: Anxiety Informant: Patient Onset: Yesterday Context: Sudden Onset Timing: Intermittent Quality: Sinha and flashing lights trying to fall asleep last night Location: Since bedroom Current Severity: - - Presently no symptoms Maximum Severity: Moderate Worsened by: Nothing Relieved by: Nothing Associated Symptoms: No associated symptoms Narrative: Patient is a 33-year-old male with history of anxiety. He reports that his Zoloft was decreased to 100-75. He was tapered off Ativan. Last dose 2 weeks ago. He also takes Vistaril. He says he has significant anxiety. He reports his anxiety was made worse because neighbor was shouting and states he was going to shoot someone. He denies headache, visual disturbance of any type. Denies ringing in his ears, decreased hearing. Denies trouble with speech or swallowing. Denies neck pain. Denies paresthesia, anesthesia motor weakness upper lower externally. Denies problems with gait. States he works out daily at [employer]. Prior similar symptoms: No Recent Illness/Hospitalization: No - Past Medical History (1) Muscle spasm of back Status: Acute (2) Tension headache Status: Acute (3) Generalized anxiety disorder with panic attacks Status: Chronic Past Medical History - Allergies and Home Meds Allergies/Adverse Reactions: Allergies No Known Allergies Allergy (Verified 04/03/19 18:14) Primary Care Physician: Jm Ty MD [Primary Care Provider] - Prior records reviewed: Yes Surgical History: no surgical history Lives: Alone Smoking Status: Never smoker Alcohol: None Review of Systems General: Denies: Chills, Fever, Sweats Eyes: Reports: - - Last seen lights when he closed his eyes last night trying to sleep. Denies: Visual changes - bilaterally, Blurred Vision - bilaterally, Diplopia ENT: Denies: Bilateral ear pain, Rhinorrhea, Sore throat Cardiovascular: Denies: Chest pain, Palpitations Respiratory: Denies: Dyspnea, Cough, Dyspnea on exertion Gastrointestinal: Denies: Abdominal pain, Nausea, Vomiting, Diarrhea, Melena, Hematochezia Genitourinary: Denies: Dysuria, Hematuria, Frequency Musculoskeletal: Denies: Back pain, Extremity Pain Skin: Denies: Rash, Wounds Neurological: Denies: Headache, Weakness, Parasthesia, Numbness Psych: Reports: Anxiety. Denies: Suicidal thoughts, Suicidal ideations Allergy: Denies: Uticaria, Swelling of the mouth Physical Exam Vital Signs/Narrative: Vital Signs Temp Pulse Resp BP Pulse Ox 04/03/19 18:12 96.8 F L 86 16 121/83 H 98 Inital Vital Signs reviewed: Yes General: Well nourished, Well developed, No Acute Distress Head: Normocephalic, Atraumatic Eyes: Perrl - Are not equal and reactive secondary to prior surgery, EOMI, - - He does have deviation of the left eye to the left.. Negative for: Pale conjunctiva, Scleral icterus ENT: Moist mucous membranes, No rhinorrhea, TM's clear. Negative for: Nasal congestion, Sinus tenderness Neck: Supple, Nontender Cardiovascular: Regular rate, Regular rhythm, No murmurs, Normal S1, Normal S2 Respiratory: No distress, CTA bilaterally, Chest nontender Abdomen: Soft, Nontender, Nondistended, Normal bowel sounds Back: Nontender, Normal Inspection Extremities: Nontender, No edema Skin: Normal color, No rash, No Trauma. Negative for: Cyanosis, Diaphoresis, Jaundice Neurological: Alert, Oriented x3, Cranial nerves II-XII grossly intact, Normal Strength, Normal Sensation Psychological: Tearful - Anxious and frustrated, - - Patient contacted nurse frame sample and pattern supervisor prior to being seen because he has not taken seriously. He had not been seen yet. Diagnostic/Tx/Re-eval - Medical Decision Making Patient was informed his symptoms are not consistent with a subarachnoid hemorrhage or aneurysm. He was told this is most likely related to his anxiety disorder and problems with sleep may be related to Vistaril. No imaging or testing was done. He was given a short course of Ativan to help him. He did make the comment he had not had an ER visit 4 months until recently. Coincidentally the frequent ER visits are associated with tapering and discontinuation of his Ativan. He has a office visit with his doctor within the next 24 to 48 hours. ED Disposition - Plan for ED Patient: Disposition: Home or Assisted Living Diagnosis: Anxiety as acute reaction to exceptional stress Instructions: ED Stress React Prescriptions: Lorazepam [Ativan] 0.5 mg PO TID PRN PRN #10 tab PRN Reason: Anxiety Referrals: Jm Ty MD [Primary Care Provider] - Keep Narendra appointment
[2019-04-03 20:24] VITALS: BP 131/74; PULSE 62; RESP 15; O2SAT 98
== END 2019-04-03 20:25 | disposition home or self-care (01) ==
PROVIDERS: Emergency Provider Emergency Medicine; Family Provider Internal Medicine; PCP Internal Medicine
DX: F41.1 Generalized anxiety disorder (principal); F43.0 Acute stress reaction; H51.8 Other specified disorders of binocular movement; Z79.899 Other long term (current) drug therapy
CPT/HCPCS: 99283

== ENCOUNTER 2019-05-02 20:20 | Emergency (ER) | payer MEDICAID, SELFPAY ==
[2019-05-02 20:21] VITALS: BP 158/107; PULSE 100; RESP 17; TEMP 36.5; O2SAT 97; BMI 33.9
[2019-05-02 21:31] VITALS: BP 132/80; PULSE 79; RESP 12; O2SAT 100
--- NOTE | 2019-05-02 21:50 | ED.DCSUM_ITS ---
- ER Visit Summary Date of Service: 05/02/19 Chief Complaint: Dizziness and panic attacks History of Present Illness: The patient is a 34 M who presents with dizziness since yesterday evening and also complaining of increased number of panic attacks. Patient states he has been feeling dizzy where he feels like he has trouble tracking movement but goes by him. He also has history of panic attacks and has been having more panic attacks recently. He states his Zoloft dose was decreased a month ago and he also stopped taking hydroxyzine because it was making his vision red. Patient states he has received Ativan at prior visits for his panic attacks. When asked if that is why he is here, patient said yes. Physical Examination: Vital signs: afebrile, hemodynamically stable, no hypoxia on room air General: well nourished, well developed, in no distress Skin: warm, dry, no rash, no pallor HEENT: normocephalic and atraumatic; pupils are chronically not equal, patient has chronic palsy of the left eye, moist mucous membranes Cardiovascular: regular rate and rhythm without murmurs, no peripheral edema, 2+ pulses all distal extremities Respiratory: No increased work of breathing, lungs are clear to auscultation bilaterally, no rales, rhonchi or wheezing Abdominal: Abdomen is soft, nontender with normoactive bowel sounds, no guarding or rebound, no masses MSK: Moves all extremities, no deformities, normal strength Neuro: Awake and alert, oriented ?4. No facial droop, sensation and motor function intact and symmetric Test Results: [] Emergency Department Course and Treatment: Patient specifically asked for Ativan for his panic attacks and stated that he has gotten it from other doctors. I told him that Ativan is and addictive medication and a controlled substance, and if he wants a prescription for, he will have to get it from his own doctor. Patient stated his own doctor would not prescribe it to him, and I then informed him that if his own doctor will not prescribe a medication, he should not expect the emergency department doctors to prescribe that medication. Patient was given a single dose of Ativan but was told he cannot have a prescription for this controlled substance. [facility] report shows multiple Ativan prescriptions from multiple providers. patient was discharged Home. Treatment Plan: [] Disposition: [] Impression: Panic attacks, drug-seeking behavior This note was generated with [employer] software. It may contain incorrect words, spelling, and punctuation that were not noted in review of the chart prior to signing ED Disposition - Plan for ED Patient: Disposition: Home or Assisted Living Instructions: Panic Attack Referrals: Jm Ty MD [Primary Care Provider] - 1-2 Days if not improving Additional Instructions: Please follow-up with your psychiatrist to discuss whether you need to go back up on your dose of Zoloft. Also talk to your psychiatrist about ways to manage your panic attacks. You cannot rely on the emergency department to prescribe Ativan for you to treat your panic attacks. If you have any worsening of your condition or any new concerning symptoms, please return immediately to the emergency department for another evaluation.
[2019-05-02] MEDS: LORazepam 0.5 MG Tablet PO (22:03)
== END 2019-05-02 22:23 | disposition home or self-care (01) ==
PROVIDERS: Emergency Provider Emergency Medicine; Family Provider Internal Medicine; PCP Internal Medicine
DX: F41.0 Panic disorder [episodic paroxysmal anxiety] (principal); Z76.5 Malingerer [conscious simulation]; H49.9 Unspecified paralytic strabismus; F32.9 Major depressive disorder, single episode, unspecified; Z79.899 Other long term (current) drug therapy
CPT/HCPCS: 99284; A4216

== ENCOUNTER 2020-11-27 01:49 | Emergency (ER) | payer MEDICAID, SELFPAY ==
[2020-11-27 01:50] VITALS: BP 145/107; PULSE 96; RESP 16; TEMP 36.1; O2SAT 98; BMI 39.1
--- NOTE | 2020-11-27 02:13 | EKG12_ITS ---
Test Reason : DYSRYTHMIA Blood Pressure : / mmHG Vent. Rate : 091 BPM Atrial Rate : 091 BPM P-R Int : 142 ms QRS Dur : 084 ms QT Int : 358 ms P-R-T Axes : 041 018 045 degrees QTc Int : 440 ms Normal sinus rhythm Normal ECG Confirmed by VÍCTOR RODAS, LILIANA ([id number]), metropolitan editor TYLOR RAMÍREZ ([id number]) on 11/30/2020 10:24:45 AM Referred By: MIGUELITO Confirmed By:LILIANA RENEE MD
--- NOTE | 2020-11-27 02:21 | ED.DCSUM_ITS ---
History of Present Illness Chief Complaint: Overdose Detail of Chief Complaint: Anxiety, dextromethorphan ingestion Informant: Patient Onset: Today Narrative: Patient presents via EMS after having a mild panic attack at home. When he arrived at the hospital he states he was already feeling better. He states this episode not feel like his typical panic attacks. He is typically on Ativan, but states he does not have any at present. Patient states that this time he feels back to baseline. During our conversation he happens to mention that he has taken 900 mg of dextromethorphan gel tabs today. He is wondering if his episode could be related to this. I specifically asked him about the dosing and did relate that typically dextromethorphan is sold as 15 mg, 30 mg, or 60 mg gel tabs. He states the tabs that he took were 15 mg each, but he took 20 tablets at a time for a total of 300 mg. He did this 3 separate times today for a total of 900 mg ingested. Patient states this was not an attempt to hurt himself. He states he was trying to do it to help his pain. When specifically asked about what pain he stated it was more for emotional pain because he was not getting the help he needed with his anxiety. - Past Medical History (1) Chronic back pain Status: Chronic (2) Generalized anxiety disorder with panic attacks Status: Chronic Past Medical History - Allergies and Home Meds Allergies/Adverse Reactions: Allergies No Known Allergies Allergy (Verified 11/27/20 01:54) Primary Care Physician: Jm Ty MD [Primary Care Provider] - Prior records reviewed: Yes Surgical History: no surgical history Smoking Status: Current some day smoker Review of Systems General: Denies: Chills, Fever Eyes: Denies: Visual changes - bilaterally ENT: Denies: Bilateral ear pain Cardiovascular: Denies: Chest pain Respiratory: Denies: Dyspnea, Cough Gastrointestinal: Denies: Abdominal pain, Vomiting, Diarrhea Genitourinary: Denies: Dysuria Musculoskeletal: Denies: Swelling, Extremity Pain Skin: Denies: Rash Neurological: Denies: Headache Hematologic: Denies: Easy bruising, Easy bleeding Allergy: Denies: Uticaria Physical Exam Vital Signs/Narrative: Vital Signs Temp Pulse Resp BP Pulse Ox 11/27/20 01:50 97.0 F L 96 16 145/107 H 98 Inital Vital Signs reviewed: Yes General: Well nourished, Well developed Head: Normocephalic Eyes: EOMI. Negative for: Perrl - Chronic irregular pupil ENT: Moist mucous membranes Neck: Supple Cardiovascular: Regular rate, Regular rhythm Respiratory: No distress, CTA bilaterally Abdomen: Soft, Nontender Skin: Normal color Neurological: Alert, Oriented x3, Normal Strength, Normal Sensation Psychological: Normal affect Diagnostic/Tx/Re-eval Laboratory Results 11/27/20 11/27/20 11/27/20 02:20 02:20 02:20 WBC 7.5 RBC 4.63 Hgb 14.1 Hct 41.8 MCV 90.3 MCH 30.5 MCHC 33.7 RDW Std Deviation 42.5 RDW Coeff of Aristeo 13.0 Plt Count 196 MPV 11.6 Immature Gran % (Auto) 0.700 Neut % (Auto) 56.8 Lymph % (Auto) 31.6 Ada % (Auto) 5.7 Eos % (Auto) 4.7 Baso % (Auto) 0.5 Absolute Neuts (auto) 4.3 Absolute Lymphs (auto) 2.38 Nucleated RBC % 0 Sodium 136 Potassium 3.4 L Chloride 103 Carbon Dioxide 29.0 Anion Gap 4 L BUN 8 Creatinine 1.12 Estim Creat Clear Calc 100.08 Est GFR (MDRD) Af Amer 95 Est GFR (MDRD) Non-Af 79 BUN/Creatinine Ratio 7.1 L Glucose 98 Calcium 8.4 L Total Bilirubin 0.30 AST 16 ALT 35 Alkaline Phosphatase 68 Total Protein 7.1 Albumin 3.9 Globulin 3.2 Albumin/Globulin Ratio 1.2 Salicylates 2.0 L Urine Opiates Screen Urine Methadone Screen Acetaminophen < 2.0 L Ur Barbiturates Screen Ur Phencyclidine Scrn Ur Amphetamines Screen U Methamphetamin-MDMA U Benzodiazepines Scrn Urine Cocaine Screen U Cannabinoids Screen Ur Drug Screen Comment Ethyl Alcohol < 3.0 11/27/20 02:35 WBC RBC Hgb Hct MCV MCH MCHC RDW Std Deviation RDW Coeff of Aristeo Plt Count MPV Immature Gran % (Auto) Neut % (Auto) Lymph % (Auto) Ada % (Auto) Eos % (Auto) Baso % (Auto) Absolute Neuts (auto) Absolute Lymphs (auto) Nucleated RBC % Sodium Potassium Chloride Carbon Dioxide Anion Gap BUN Creatinine Estim Creat Clear Calc Est GFR (MDRD) Af Amer Est GFR (MDRD) Non-Af BUN/Creatinine Ratio Glucose Calcium Total Bilirubin AST ALT Alkaline Phosphatase Total Protein Albumin Globulin Albumin/Globulin Ratio Salicylates Urine Opiates Screen NEGATIVE Urine Methadone Screen NEGATIVE Acetaminophen Ur Barbiturates Screen NEGATIVE Ur Phencyclidine Scrn NEGATIVE Ur Amphetamines Screen NEGATIVE U Methamphetamin-MDMA NEGATIVE U Benzodiazepines Scrn NEGATIVE Urine Cocaine Screen NEGATIVE U Cannabinoids Screen NEGATIVE Ur Drug Screen Comment Ethyl Alcohol - EKG Initial EKG Interpretation: Sinus Rhythm - Sinus at 91 with no acute ischemia. - Medical Decision Making Patient did admit to taking a total of 900 mg of dextromethorphan today. Normal dosage should not exceed 125 mg in a 24-hour period. Patient was discussed with poison control. They recommended observation for 4 to 6 hours in the last ingestion. Patient could be given benzos if he becomes agitated or any seizures develop. Patient was observed on monitor car operator for a total of 4 hours in the emergency room. His last ingestion was a couple hours before he arrived here. Patient has remained asymptomatic. Counseling center did speak with the patient and they have him scheduled for an IOP intake appointment on Sunday at 2 PM. They will call him today for follow-up. ED Disposition - Plan for ED Patient: Disposition: Home or Assisted Living Diagnosis: Anxiety, Drug ingestion Instructions: ED Accidental Ingestion Nontoxic Adult, ED Panic Attack Referrals: Jm Ty MD [Primary Care Provider] - Counseling,Center [GROUP OF PHYSICIANS] -
[2020-11-27 02:25] LABS: Absolute Lymphocyte Count 2.38 X10^3/uL (0.83-4.51); Absolute Neutrophil Count 4.3 X10^3/uL (2.0-7.7); Basophil# 0.04 X10^3/uL; Basophil% 0.5 % (0-1); Eosinophil# 0.35 X10^3/uL; Eosinophils% 4.7 % (0-5); Hematocrit 41.8 % (40-54); Hemoglobin 14.1 g/dL (13.0-16.5); Lymphocyte # 2.38 X10^3/ul (4.0); Lymphocyte % 31.6 % (19-41); Mean Corp Hgb Conc 33.7 g/dL (32-36); Mean Corpuscular Hgb 30.5 pg (27.0-32.0); Mean Corpuscular Volume 90.3 fL (80-94); Mean Platelet Vol. 11.6 fl (6.2-12.0); Monocyte# 0.43 X10^3/uL; Monocyte% 5.7 % (0-10); NRBC Flagged by Analyzer 0 % (0-5); Neutrophil # 4.27 X10^3/uL (2.7-7.7); Neutrophil % 56.8 % (47-70); Platelet Count 196 K/mm3 (150-450); RBC Distribution Width SD 42.5 fl (35.1-43.9); Red Blood Count 4.63 M/mm3 (4.6-6.2); White Blood Count 7.5 K/mm3 (4.4-11.0)
[2020-11-27] MEDS: 0.9% Normal Saline 1,000 ML 150 ML IV (02:27)
[2020-11-27 02:43] LABS: ALB/GLOB Ratio 1.2 RATIO (0.9-2.4); AST(SGOT) 16 U/L (15-37); Alanine Aminotransfer ALT/SGPT 35 U/L (16-61); Albumin, Serum 3.9 g/dL (3.2-5.0); Alkaline Phosphatase 68 U/L (45-117); Anion Gap 4 (5-15); BUN 8 mg/dL (7-18); BUN/Creat Ratio 7.1 RATIO (10-20); Calcium,Total 8.4 mg/dL (8.5-10.1); Chloride 103 mmol/L (98-107); Creatinine, Serum 1.12 mg/dL (0.70-1.30); EST Glomerular Filtration Rate 79 mL/min (>60); Est Glom Filt Rate - Afr Amer 95 mL/min (>60); Estimated Creatinine Clearance 100.08 ml/min; Globulin 3.2 g/dL (2.2-4.2); Glucose 98 mg/dL (74-106); Potassium 3.4 mmol/L (3.5-5.1); Protein, Total 7.1 g/dL (6.4-8.2); Sodium Level 136 mmol/L (136-145)
[2020-11-27 03:06] LABS: Amphetamine Urine VISTA NEGATIVE (<1000 ng/mL); Barbiturate Urine VISTA NEGATIVE (< 200 ng/mL); Benzodiazepine Urine VISTA NEGATIVE (< 200 ng/mL); Cocaine Urine VISTA NEGATIVE (< 300 ng/mL); Ecstacy Urine VISTA NEGATIVE (< 500 ng/mL); Methadone Urine VISTA NEGATIVE (< 300 ng/mL); PCP Urine VISTA NEGATIVE (< 25 ng/mL); THC Urine VISTA NEGATIVE (< 50 ng/mL); Vista UDS pH Range 6
[2020-11-27 03:18] LABS: Acetaminophen (Tylenol) Level < 2.0 ug/mL (10.0-30.0); Alcohol, Blood (Medical)-Serum < 3.0 mg/dL
[2020-11-27 03:56] VITALS: PULSE 84; RESP 16
--- NOTE | 2020-11-27 05:01 | ED.RN ---
CHART FAXED OVER TO [facility]
[2020-11-27 05:08] VITALS: PULSE 70; RESP 14
[2020-11-27 06:05] VITALS: BP 136/87; PULSE 68; RESP 16; O2SAT 98
== END 2020-11-27 06:07 | disposition home or self-care (01) ==
PROVIDERS: Emergency Provider Emergency Medicine; PCP Internal Medicine
DX: F41.9 Anxiety disorder, unspecified (principal); T48.3X1A Poisoning by antitussives, accidental (unintentional), initial encounter; Y92.9 Unspecified place or not applicable; M54.9 Dorsalgia, unspecified; G89.29 Other chronic pain; F17.200 Nicotine dependence, unspecified, uncomplicated
CPT/HCPCS: 80053; 80307; 80329; 82077; 85025; 93005; 96360; 96361; 99285; J7030; A4216; G0480

== ENCOUNTER 2020-11-28 20:42 | Emergency (ER) | payer MEDICAID, SELFPAY ==
[2020-11-27 01:50] VITALS: BMI 39.1
[2020-11-28 20:43] VITALS: BP 143/94; PULSE 102; RESP 17; TEMP 35.8; O2SAT 95; BMI 38.2
[2020-11-28] MEDS: LORazepam 1 MG Tablet PO (21:37)
--- NOTE | 2020-11-28 21:41 | ED.VISSUMM ---
- ER Visit Summary Date of Service: 11/28/20 Chief Complaint: Anxiety History of Present Illness: The patient is a 35 M presenting with anxiety. Patient states that he has been having problems with anxiety over the last several days. He was seen in the ED on Sunday. At that time he was set up to see IOP intake tomorrow. States he has been feeling overwhelmed. He feels like he may snap. He states that he yelled at his mother today which is unusual for him. He has been out of Ativan since October which previously helped his anxiety. He stopped his Zoloft a few weeks ago. He admits to abusing cough medicine but has not taken this in the last several days. Denies suicidal thoughts. He states he would not intentionally hurt someone but he is worried that he may snap and hurt someone. Physical Examination: Vitals are stable. Patient is afebrile. Alert no acute distress. HEENT exam is unremarkable. Neck is supple. Lungs are clear and equal bilaterally. Heart is regular rate and rhythm. Abdomen is soft nontender nondistended. Extremities are unremarkable. Skin is warm and dry. No focal neurologic deficit. Anxious. Denies suicidal ideation Remainder of exam is unremarkable. Emergency Department Course and Treatment: Patient was given Ativan. Labs are pending. Patient will be discussed with the counseling center for evaluation and will be checked out to the oncoming physician. Disposition: Per counseling center Impression: Anxiety This note was generated with [employer] dictation software. It may contain incorrect words, spelling, and punctuation that were not noted in review of the chart prior to signing ED Disposition - Plan for ED Patient: Referrals: Jm Ty MD [Primary Care Provider] -
[2020-11-28 21:52] LABS: Absolute Lymphocyte Count 2.45 X10^3/uL (0.83-4.51); Absolute Neutrophil Count 5.6 X10^3/uL (2.0-7.7); Basophil# 0.04 X10^3/uL; Basophil% 0.5 % (0-1); Eosinophil# 0.23 X10^3/uL; Eosinophils% 2.6 % (0-5); Hematocrit 44.9 % (40-54); Hemoglobin 15.2 g/dL (13.0-16.5); Lymphocyte # 2.45 X10^3/ul (4.0); Lymphocyte % 27.9 % (19-41); Mean Corp Hgb Conc 33.9 g/dL (32-36); Mean Corpuscular Hgb 30.6 pg (27.0-32.0); Mean Corpuscular Volume 90.5 fL (80-94); Mean Platelet Vol. 11.3 fl (6.2-12.0); Monocyte# 0.37 X10^3/uL; Monocyte% 4.2 % (0-10); NRBC Flagged by Analyzer 0 % (0-5); Neutrophil # 5.64 X10^3/uL (2.7-7.7); Neutrophil % 64.3 % (47-70); Platelet Count 220 K/mm3 (150-450); RBC Distribution Width SD 42.4 fl (35.1-43.9); Red Blood Count 4.96 M/mm3 (4.6-6.2); White Blood Count 8.8 K/mm3 (4.4-11.0)
[2020-11-28 22:05] LABS: Anion Gap 5 (5-15); BUN 9 mg/dL (7-18); BUN/Creat Ratio 8.6 RATIO (10-20); Calcium,Total 8.4 mg/dL (8.5-10.1); Chloride 106 mmol/L (98-107); Creatinine, Serum 1.05 mg/dL (0.70-1.30); EST Glomerular Filtration Rate 85 mL/min (>60); Est Glom Filt Rate - Afr Amer 102 mL/min (>60); Estimated Creatinine Clearance 106.75 ml/min; Glucose 97 mg/dL (74-106); Potassium 3.7 mmol/L (3.5-5.1); Sodium Level 139 mmol/L (136-145)
[2020-11-28 22:26] LABS: Alcohol, Blood (Medical)-Serum < 3.0 mg/dL
[2020-11-28 22:30] LABS: Amphetamine Urine VISTA NEGATIVE (<1000 ng/mL); Barbiturate Urine VISTA NEGATIVE (< 200 ng/mL); Benzodiazepine Urine VISTA NEGATIVE (< 200 ng/mL); Cocaine Urine VISTA NEGATIVE (< 300 ng/mL); Ecstacy Urine VISTA NEGATIVE (< 500 ng/mL); Methadone Urine VISTA NEGATIVE (< 300 ng/mL); PCP Urine VISTA NEGATIVE (< 25 ng/mL); THC Urine VISTA NEGATIVE (< 50 ng/mL); Vista UDS pH Range 6
--- NOTE | 2020-11-28 23:02 | ED.RN ---
CRISIS PAGED AND REPORT FAXED
--- NOTE | 2020-11-29 | ED.DEP ---
ED Disposition - Plan for ED Patient: Instructions: ED Anxiety Reaction Referrals: Jm Ty MD [Primary Care Provider] -
--- NOTE | 2020-11-29 00:03 | ED.DEP ---
ED Disposition - Plan for ED Patient: Instructions: ED Anxiety Reaction Prescriptions: Lorazepam [Ativan] 1 mg PO TID PRN PRN #5 tab PRN Reason: Anxiety Prescription Printed Referrals: Jm Ty MD [Primary Care Provider] -
[2020-11-29 01:08] VITALS: RESP 16
== END 2020-11-29 01:09 | disposition home or self-care (01) ==
LOC: ED 21:37
PROVIDERS: Emergency Provider Emergency Medicine; PCP Internal Medicine
DX: F41.9 Anxiety disorder, unspecified (principal); F32.9 Major depressive disorder, single episode, unspecified; Z79.899 Other long term (current) drug therapy; Z72.0 Tobacco use
CPT/HCPCS: 80048; 80307; 82077; 85025; 99282

== ENCOUNTER 2020-12-15 09:00 | Outpatient (RCR) | payer MEDICAID, SELFPAY ==
--- NOTE | 2020-12-15 09:35 | BH.NA_ITS ---
Physical Data - Vital Signs Pulse Rate: 91 Blood Pressure: 142/84 - Height/Weight Height: 1.83 m Weight:: 127.006 kg Weight in Pounds: 280.0 lbs Current Medication Compliance - Medication Compliance Do you take your medication as prescribed?: Yes Nutritional History - Appetite Nutritional Instructions:: If client shows signs of a swallowing problem, weight change of 10 pounds or more in the last month, or is on a diabetic diet, the physician will review and request a dietitian consult, as appropriate. All unintentional weight loss will be referred to the physician for decision on need for dietitian consult. Describe your appetite:: Good Additional nutritional information:: Client states his appetite is too good at times and states he is interested in attempting weight loss. Functional Assessment - Sleep Pattern Describe any problems with sleeping: Client states his sleep is decent, stating he sleeps 5-6 hours per night. - Activities Motor Activity:: Functional Comments:: tapping legs most of assessment Sensory/Communication Assess - Communication Problems Do you have difficulty understanding what people are saying?: No What is your primary language?: Nauruan Medical Problems/History - Metabolic Conditions Metabolic: Hypothyroidism - Pain Assessment Do you have acute or chronic pain?: No - Family History Family History: Family History (Last Reviewed 03/12/19 @ 10:01 by Yeny Carey) Other Anxiety Depression - Additional History Additional comments:: panic disorder, depression Surgical History - Surgical History Have you had any surgeries? If so, list type and date:: Yes - intraocular implants Substance Abuse - Substance Abuse Please describe substance abuse in the last 30 days:: Client states he drinks alcohol occasionally. Client states he smokes about 2 cigarettes per day but states he does not inhale. Client states he does not use street drugs but states he was using dextromethorphan regularly until a couple of weeks ago. Client states he drinks 3 cups of coffee per day. Mental Status Summary - Mental Status Significant Findings/Observations on Appearance and Mood:: Client is alert and oriented x4. Client is wearing a mask due to COVID 19 pandemic. Client is cooperative. Client's voice has normal volume. Client's speech is coherent and spontaneous. Client appears mildly anxious. Client denies delusions/hallucinations. Client denies SI. Suicide Assessment - Suicidal Ideation Are you currently or have you been suicidal in the past?: Yes - denies SI at this time Suicidal Intentional Rating Scale (SIRS): Suicidal thoughts (past) Physician Notification: If Active suicidal thoughts/Will not contract for s afety is checked, contact physician and document in the Physician Notification section below. Past Psychiatric History - MH Treatment Hx Past Psychiatric Medications:: Ativan, Zoloft, does not remember the name of others. Age of first mental health symptoms: Client states he was diagnosed with panic disorder and depression a few years ago. Describe (age, circumstance, etc) any past hospitalizations: three times, most recently in 2018 for SI. Current providers for mental health treatment (counselor, psychiatrist, director of casework department, etc.): Client states he has seen a psychiatrist via telehealth in [place] one time recently. Fall Risk Assessment - Age Age: Less than 60 - Mental Status Mental Status: Willing & able to ask for assistance when needed - Physical Status Physical Status: No problems - Impairments Impairments: None - Elimination Elimination: Continent AND independent - Gait or Balance Gait or Balance: Walks independently - Hx of Falls History of falls in the past 6 months: No known history - Medications/Substances Psychotropics:: Anxiolytics (e.g. benzodiazepines) Medications/substances used within the past 24 hours or ordered to administer: 1-2 of the medications/substances listed above - Total Score Total Points:: 1 RN Summary of Impressions - Impressions Recommendations: Include psychiatric and medical issues, treatment planning recommendations, and discharge planning needs. Impressions: Psychiatric Issues: panic disorder; major depressive disorder, recurrent, moderate; rule out bipolar, NOS; narcissistic traits. - Level of Care How do the client's current symptoms and functional deficits support need for this level of care?: Client was referred to [facility] after being in [facility] ER several times for anxiety in November 2020. Client reports that for the last few weeks my emotions are out of control. Client states that he wants to be motivated and get stuff done around his house, but negative thoughts prevent him from doing so. Client states he has being feeling angry and yelling at his elderly mother and states he does not want to. Client also endorses irritability, low energy, and being overwhelmed. Client reports that Ativan helps to remove the negative feelings but he takes it sparingly because he is not prescribed much Ativan and he knows it is not a permanent solution and can be addictive. Client reports previously using dextromethorphan in cough syrup to attempt to help with his anxiety, but states he has not used this in a few weeks. Client denies SI. Client states his new psychiatrist wants to start him on Abilify but he has not heard from the office. Encouraged client to call psychiatrists office for discussion. IOP will promote gains and prevent further decompensation while providing social support and skills training.
[2020-12-15 09:59] VITALS: BP 142/84; PULSE 91
--- NOTE | 2020-12-15 10:00 | BH.SGPN.GN ---
Behaviors/Verbalizations/Mental Status: []Client alert and oriented, casually dressed and groomed. Eye contact good. Motor activity restless. Speech within normal limits. Affect constricted, mood dysthymic. Thoughts linear, logical, no signs of hallucinations or delusions. Client Response/Progress/Benefit: []Client engaged throughout session AEB providing input during discussion. Appeared to connect with discussion on crisis and how unhealthy coping could result in a personal crisis. Group reflected on the importance of having awareness of personal warning signs in order to prevent reaching crisis point. Group identified potential warning signs for crisis and client completed the personal warning signs worksheet. Client identified personal crisis warning signs to include: mood changes, unusual drop in functioning, and apathy. Client benefited from increasing awareness of what leads to crisis and personal warning signs. Client's first day of IOP tx. Will continue to prevent decompensation, reduce anger, and improve daily functioning. Narrative Note: []
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
--- NOTE | 2020-12-15 12:47 | BH.DR.ITP ---
Initial Treatment Plan - Patient Information Visit Information: ADMISSION DATE: EXPECTED LOS: 4-6 weeks - Problems/Symptoms Problem #1:: Emotional lability Symptom:: depression, sadness, anger, hopelessness, guilt Problem #2:: Anxiety Symptom:: Panic attacks, rumination
--- NOTE | 2020-12-16 11:00 | BH.SGPN.GN ---
Behaviors/Verbalizations/Mental Status: []Client alert and oriented, casually dressed and groomed. Eye contact fair. Motor activity appropriate. Speech within normal limits. Mood anxious, affect constricted. Thoughts linear, logical, no signs of hallucinations or delusions. Client Response/Progress/Benefit: []Client responded well to session as evidenced by client listening attentively to others and providing strategies during discussion. Client identified his warning signs for personal crisis and gained further awareness of earliest warning signs. Client created a crisis action plan to help client better manage warning signs for crisis. Client?s action plan for apathy included: challenge thinking, change activity, and find something else to do. Client appeared to benefit from creating a crisis action plan and increasing self-awareness. Pt's first day in IOP. Client to continue IOP tx to improve daily functioning, increase healthy coping and prevent decompensation.
--- NOTE | 2020-12-27 09:00 | BH.SGPN.GN ---
Behaviors/Verbalizations/Mental Status: []Client alert and oriented, casually dressed. Eye contact fair. Motor activity appropriate. Speech within normal limits, however, interrupting therapist throughout session. Affect constricted, mood anxious. Thoughts linear, logical, no signs of hallucinations or delusions. Reviewed client?s symptom tracker, client scored himself within his baseline on 12/27/20. Client Response/Progress/Benefit: []Client responded well to session, engaged throughout and participated in group discussion. Client reported feeling ?back and forth with mood? this morning. Client continued stating he did not want to discuss his stressors because he did not want to ?complain about his problems.? Later disclosed two stressors as ?not having trustworthy support and housing stressors due to the lack of support from his landlords.? Identified his positive as coming to IOP to get help with his mental health. Reported listening to podcasts, talking to others on social media, and IOP as healthy coping skills. A goal client wants to accomplish would be to clean and organize the basement and garage of his home. Progress noted as client was open with his check-in. Benefited from group as client offered feedback to peers. Will continue IOP to promote the use of healthy coping skills, decrease anxiety symptoms, and prevent decompensation. Narrative Note: []
--- NOTE | 2020-12-27 10:00 | BH.SGPN.GN ---
Behaviors/Verbalizations/Mental Status: [] Client alert and oriented, casually dressed and grooming fair. Eye contact good. Motor activity appropriate. Speech within normal limits. Affect congruent, mood dysthymic. Thoughts linear, logical, no signs of hallucinations or delusions. Client Response/Progress/Benefit: [] Client active participant AEB providing input to discussion, taking notes, and listening attentively to peers. Client did however struggle at times with interrupting fellow participants or therapist during discussion. Reported connecting with topic of social supports as he feels he struggles in this area. Group identified the benefits of having a support system such as: emotional release, ability to rebound quicker after a setback, gain perspective, and not feeling alone. Group discussed different types of support, and client noted hobbies and sense of humor as potential resources. Group also discussed the barriers to accessing support in which client noted disorganization and fear of judgement as a barrier he struggles with. Did well to engage in the social support activity AEB actively working with the group to complete task at hand however at times struggled to hear fellow participant?s feedback due to interrupting others. Seemed to benefit from increased awareness of potential benefits of social support. Will continue IOP tx to promote gains and further reduce mental health sx. Narrative Note: []
--- NOTE | 2020-12-27 11:13 | BH.SGPN.GN ---
Behaviors/Verbalizations/Mental Status: []Client alert and oriented, casually dressed and groomed. Eye contact good. Motor activity appropriate. Speech within normal limits. Affect constricted, mood anxious. Thoughts linear, logical, no signs of hallucinations or delusions. Client Response/Progress/Benefit: []Client an active participant throughout AEB contributing to discussion, taking notes, and providing supportive feedback. Client participated in the group activity highlighting the various barriers to effectively utilizing supports and strategies the group used. Client participated in discussion of the four types of support (emotion, tangible, informational, and social) and gave examples for all types. Client reports wanting to work on increasing social support and plans to do this by going to the gym. Client shared this will benefit him because it will improve his health and allow client to be around people. Client seemed to benefit from identifying the type of support client wants to improve. Client to continue in IOP tx to prevent decompensation, increase emotional regulation skills, and learn healthy coping skills. Narrative Note: []
--- NOTE | 2020-12-31 11:13 | BH.SGPN.GN ---
Behaviors/Verbalizations/Mental Status: []Client alert and oriented, casually dressed and groomed. Eye contact fair. Motor activity appropriate. Speech within normal limits. Affect flat, mood agitated. Thoughts linear, logical, no signs of hallucinations or delusions. Client Response/Progress/Benefit: []Client receptive of session, engaged throughout AEB client participating to discussion and taking notes. Client completed a worksheet where client identified personal pitfalls that could impact mental health progress. Client?s pitfalls included: lack of awareness, self-sabotaging behaviors and ?I don?t care attitude,? and emotional spiraling. Attentive and contributing during group brainstorm of strategies to overcome pitfalls. Client will work on overcoming pitfalls by identifying ?toxicity? in his life. Benefited from identifying personal pitfalls and strategies to overcome these pitfalls. Progress noted in client?s improved attendance this week. Will continue IOP tx to prevent decompensation, improve emotional regulation, and learn how to better manage anger. Narrative Note: []
--- NOTE | 2020-12-31 15:29 | BH.MDN ---
Multi-Disciplinary Note - Note 30-min Individual Time Started:: 08:11 Date: 12/31/20 Purpose of session/treatment goals addressed:: The purpose of this session was to gather information on client's current stressors, symptoms, and treatment goals. Another goal was to build rapport and provide psychoeducation. Eye Contact:: Fair Motor Activity:: Restless Appearance:: Disheveled Speech:: Rapid Mood:: Anxious, Irritable Affect:: Constricted Thoughts:: Linear, Logical, No evidence of hallucinations/delusions noted Staff Interventions:: Therapist used active listening and open-ended questions to explore client's current stressors, symptoms, history, and treatment goals. Therapist used strengths perspective to build rapport and provided psychoeducation on maintenance cycles, anger, and cognitive distortions. Therapist gave client homework to explore emotions under the surface of anger. Client Response:: Client responded well to session, open to meeting with therapist. Client reports his ultimate goal is to decrease his anger and panic attacks. Client has been in the ER numerous times due to anxiety, but client feels like his anger is more important to work on right now. Client shared he has frequent anger outbursts that lead to negative consequences such as losing relationships, isolation, and worsening mental health symptoms. Client shared a recent example of an anger outburst during a doctor's appointment. Client stated I feel like it was justified though as client shared he had to wait an extensive period of time and felt like there was lack of communication. Discussed how anger is not a bad emotion and sometimes it is beneficial. What makes anger good or bad is how a person betty with it. Client has awareness that he does not cope well with anger and gained awareness of his triggers. Identified triggers included feeling impatient and feeling like something is unjust. Discussed the anger cycle as well as the emotions under the surface of anger. Client receptive to identifying his emotions for homework. Risks/Concerns:: Client denies any suicidal ideations, plan, or intent as of 12/31/20. Progress Toward Goals/Plan:: Client's attendance has been variable, so this is his first time meeting with this therapist. Client currently endorses increased irritability, lack of motivation, panic attacks, mood instability, a depressed mood, and interpersonal relationship issues. Client will continue IOP tx to prevent decompensation, improve mood stability, and increase interpersonal effectiveness skills. Time Stopped:: 08:39
--- NOTE | 2020-12-31 15:30 | BH.MTP_ITS ---
[facility] Treatment Plan - Patient Information Program Physician:: Dr. Koki Guerra Primary Therapist:: Jinny Lin - Psychiatric Diagnoses Psychiatric Diagnoses:: Panic disorder; major depressive disorder, recurrent, moderate; rule out bipolar, NOS; Narcissistic traits Diagnosis Code(s):: F33.1 - Estimated LOS Estimated LOS (in weeks):: 6 Problem/Goal #1 - Problem/Goal #1 Stated Goal:: Client will reduce depressive symptoms, anhedonia, and lack of motivation associated with major depressive disorder. Description of Barriers: Client has a history of high recidivism, non- responsiveness to medications, and self-medicating. Client has limited support and reports isolative behaviors. Client struggles to regulate his emotions, especially anger. Client reports a mistrust for medical professions and reports being easily aggravated. Client does not have independent transportation and no current mental health providers. Functional Impact: Client is a 35-year-old male with a history of panic disorder and MDD. Client has a history of three previous hospitalizations with the most recent being 2017 for suicidal ideations. Client was referred to IOP by Kunal/Rachael grossman after presenting to the [facility] ER on 11/27/20 and 11/28/20 for anxiety. Per ER notes and Crisis assessment, client was in the ER for panic attacks and depression. Client presents with increased agitation and irritability. Client endorses a depressed mood, low energy, isolation, and health anxiety. Client reports Ativan has been the only medication that has helped his anxiety. Client was self-medicating with 900mg of Dextromethorphan and he found in initially beneficial, but then found it worsened panic symptoms. Has not used since 11/26/20. Client denies any other drug use. Client's symptoms are impacting client's social and daily functioning. Client has history of medication non-compliance and high recidivism. Goal Relevant Strengths/Supports: Client is willing to learn how to better manage his mental health. - Objectives Objective #1 Stated Objective: Client will learn and utilize 2-3 healthy coping strategies to better manage depressive as shown by reduced DSM-5 scores. Interventions: Through group and individual sessions, therapist will assist client in learning internal coping strategies to manage depressive symptoms, along with helping client identify warning signs. Therapist will help client set small SMART goals to promote behavioral activation. Discharge Criteria: Client will have achieved this goal when DSM-5 symptoms for depression have decreased and can verbalize practicing at least 2 healthy coping strategies. Target Date: 01/26/21 Review Date: 01/12/21 Status: open Objective #2 Stated Objective: Client will identify at least 2-3 negative self-talk messages used to reinforce depression and replace thoughts with positive, realistic messages. Interventions: Therapist will help client identify distorted, negative beliefs about self and replace with more realistic, affirmative messages. Therapist will use CBT to help client increase insight to the connection between thoughts, emotions, and behaviors. Therapist will encourage client to practice thought challenging and self-compassion. Discharge Criteria: Client will have achieved this goal when can verbalize at least 2 negative self-talk messages and effectively replace those thoughts with affirmative messages. Target Date: 01/26/21 Review Date: 01/12/21 Status: open Problem/Goal #2 - Problem/Goal #2 Stated Goal:: Client will increase mood stability through increasing emotional regulation skills. Description of Barriers: Client has a history of high recidivism, non- responsiveness to medications, and self-medicating. Client has limited support and reports isolative behaviors. Client struggles to regulate his emotions, especially anger. Client reports a mistrust for medical professions and reports being easily aggravated. Client does not have independent transportation and no current mental health providers. Functional Impact: Client is a 35-year-old male with a history of panic disorder and MDD. Client has a history of three previous hospitalizations with the most recent being 2017 for suicidal ideations. Client was referred to IOP by Kunal/Rachael crisis after presenting to the [facility] ER on 11/27/20 and 11/28/20 for anxiety. Per ER notes and Crisis assessment, client was in the ER for panic attacks and depression. Client presents with increased agitation and irritability. Client endorses a depressed mood, low energy, isolation, and health anxiety. Client reports Ativan has been the only medication that has help ed his anxiety. Client was self-medicating with 900mg of Dextromethorphan and he found in initially beneficial, but then found it worsened panic symptoms. Has not used since 11/26/20. Client denies any other drug use. Client's symptoms are impacting client's social and daily functioning. Client has history of medication non-compliance and high recidivism. Goal Relevant Strengths/Supports: Client is willing to learn how to better manage his mental health. - Objectives Objective #1 Stated Objective: Client will identify 2 triggers and 2 coping skills to use when client experiences mood dysregulation and increased anger. Interventions: Through individual and group counseling client will be provided with education on healthy coping skills to manage mood symptoms, impulse, and crisis behaviors. Therapist will provide information on healthy alternatives to emotion release. Individual therapist will teach client DBT techniques to increase emotional regulation and mindfulness. Discharge Criteria: Client will have accomplished this goal when client can identify at least 2 triggers and 2 coping skills to increase mood stability and reduce anger. Target Date: 01/26/21 Review Date: 01/12/21 Status: open Objective #2 Stated Objective: Client will identify 2-3 cognitive distortions that lead to anger and learn 2-3 ways to manage these thoughts to improve mood stability. Interventions: Therapist will provide education on the most common cognitive distortions and teach client the connection between thoughts, emotions, and feelings. Therapist will assist client in identifying, challenging, and replacing dysfunctional thoughts with positive, more realistic thoughts. Therapist will use CBT and DBT techniques to help client gain awareness of thinking errors and learn how to more effectively handle negative thoughts that reinforce poor interpersonal skills. Discharge Criteria: Client will have accomplished this goal when can identify at least 2 cognitive distortions that reinforce anger and at least 2 coping skills to manage negative thoughts. Target Date: 01/26/21 Review Date: 01/12/21 Status: open
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
== END 2021-01-02 23:59 ==
LOC: BHIOP 09:00
PROVIDERS: PCP Internal Medicine; Referring Provider Psychiatry & Neurology Psychiatry; Visit Provider Psychiatry & Neurology Psychiatry
DX: F41.0 Panic disorder [episodic paroxysmal anxiety] (principal); F33.1 Major depressive disorder, recurrent, moderate; F60.81 Narcissistic personality disorder; Z79.899 Other long term (current) drug therapy; F17.210 Nicotine dependence, cigarettes, uncomplicated
CPT/HCPCS: H0035; H2012; H2020; T1002; 90832

== ENCOUNTER 2020-12-21 02:09 | Emergency (ER) | payer MEDICAID, SELFPAY ==
[2020-12-21 02:10] VITALS: BP 131/88; PULSE 90; RESP 18; TEMP 36.2; O2SAT 97; BMI 41.0
--- NOTE | 2020-12-21 02:29 | RAD_ITS ---
STUDY: X-RAY CHEST REASON FOR EXAM: Male, 35 years old. pt reports anxiety attack -- states he has some tightness in his chest TECHNIQUE: 2 AP portable views of the chest were obtained. COMPARISON: 07/05/2018. FINDINGS: There are no confluent pulmonary infiltrates. There is no demonstrated pleural abnormality. Normal size heart. Normal mediastinum and kishan. Normal visualized aortic arch and descending thoracic aorta. There are no demonstrated acute fractures or destructive bone lesions. There is no demonstrated abnormality of the visualized soft tissue structures of the upper abdomen. RAD/Chest 1 View (Portable) IMPRESSION: Normal x-ray examination of the chest. Electronically Signed: Mariano Hartley MD at 3:25 EST , Service support ,
--- NOTE | 2020-12-21 02:29 | EKG12_ITS ---
Test Reason : ANXEITY Blood Pressure : / mmHG Vent. Rate : 096 BPM Atrial Rate : 096 BPM P-R Int : 146 ms QRS Dur : 078 ms QT Int : 342 ms P-R-T Axes : 052 042 055 degrees QTc Int : 432 ms Normal sinus rhythm Normal ECG Confirmed by VÍCTOR RODAS, LILIANA ([id number]), social media editor TYLOR RAMÍREZ ([id number]) on 12/23/2020 1:43:53 PM Referred By: SHANTE Confirmed By:LILIANA RENEE MD
[2020-12-21 02:48] LABS: Absolute Lymphocyte Count 2.49 X10^3/uL (0.83-4.51); Basophil# 0.04 X10^3/uL; Basophil% 0.5 % (0-1); Eosinophil# 0.34 X10^3/uL; Eosinophils% 4.6 % (0-5); Hematocrit 41.1 % (40-54); Hemoglobin 13.9 g/dL (13.0-16.5); Lymphocyte # 2.49 X10^3/ul (4.0); Lymphocyte % 33.9 % (19-41); Mean Corp Hgb Conc 33.8 g/dL (32-36); Mean Corpuscular Hgb 30.3 pg (27.0-32.0); Mean Corpuscular Volume 89.5 fL (80-94); Mean Platelet Vol. 11.3 fl (6.2-12.0); Monocyte# 0.45 X10^3/uL; Monocyte% 6.1 % (0-10); NRBC Flagged by Analyzer 0 % (0-5); Neutrophil # 3.99 X10^3/uL (2.7-7.7); Neutrophil % 54.4 % (47-70); Platelet Count 212 K/mm3 (150-450); RBC Distribution Width CV 12.9 % (11.6-14.6); Red Blood Count 4.59 M/mm3 (4.6-6.2); White Blood Count 7.4 K/mm3 (4.4-11.0)
[2020-12-21 03:01] LABS: Anion Gap 5 (5-15); BUN 10 mg/dL (7-18); BUN/Creat Ratio 8.8 RATIO (10-20); Chloride 105 mmol/L (98-107); Creatinine, Serum 1.13 mg/dL (0.70-1.30); EST Glomerular Filtration Rate 78 mL/min (>60); Est Glom Filt Rate - Afr Amer 94 mL/min (>60); Estimated Creatinine Clearance 99.19 ml/min; Glucose 116 mg/dL (74-106); Potassium 3.3 mmol/L (3.5-5.1); Sodium Level 139 mmol/L (136-145)
[2020-12-21 03:04] LABS: Alcohol, Blood (Medical)-Serum < 3.0 mg/dL
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
[2020-12-21 03:36] VITALS: RESP 20
[2020-12-21 03:37] LABS: Amphetamine Urine VISTA NEGATIVE (<1000 ng/mL); Barbiturate Urine VISTA NEGATIVE (< 200 ng/mL); Benzodiazepine Urine VISTA NEGATIVE (< 200 ng/mL); Cocaine Urine VISTA NEGATIVE (< 300 ng/mL); Ecstacy Urine VISTA NEGATIVE (< 500 ng/mL); Methadone Urine VISTA NEGATIVE (< 300 ng/mL); PCP Urine VISTA NEGATIVE (< 25 ng/mL); THC Urine VISTA NEGATIVE (< 50 ng/mL); Vista UDS pH Range 5
[2020-12-21 04:00] VITALS: RESP 16
[2020-12-21 04:54] VITALS: RESP 16
== END 2020-12-21 04:55 | disposition home or self-care (01) ==
PROVIDERS: Emergency Provider Emergency Medicine; PCP Internal Medicine
DX: R07.89 Other chest pain (principal); F41.9 Anxiety disorder, unspecified; F32.9 Major depressive disorder, single episode, unspecified; E66.9 Obesity, unspecified; F17.200 Nicotine dependence, unspecified, uncomplicated
CPT/HCPCS: 36415; 71045; 80048; 80307; 82077; 85025; 93005; 99284

== ENCOUNTER 2020-12-27 23:55 | Emergency (ER) | payer MEDICAID, SELFPAY ==
[2020-12-27 23:55] VITALS: BP 134/87; PULSE 98; RESP 18; TEMP 36.5; O2SAT 99; BMI 39.4
--- NOTE | 2020-12-28 00:10 | EKG12_ITS ---
Test Reason : ANXEITY Blood Pressure : / mmHG Vent. Rate : 089 BPM Atrial Rate : 089 BPM P-R Int : 142 ms QRS Dur : 076 ms QT Int : 342 ms P-R-T Axes : 053 036 052 degrees QTc Int : 416 ms Normal sinus rhythm Normal ECG Confirmed by JASSON RODAS, LACHELLE ([id number]), content editor SCAR STEIN ([id number]) on 12/29/2020 12:47:20 PM Referred By: DC Confirmed By:LACHELLE SPAULDING MD
[2020-12-28] MEDS: LORazepam 1 MG Tablet PO (00:25)
[2020-12-28 00:31] LABS: Absolute Lymphocyte Count 2.48 X10^3/uL (0.83-4.51); Absolute Neutrophil Count 3.8 X10^3/uL (2.0-7.7); Basophil# 0.04 X10^3/uL; Basophil% 0.6 % (0-1); Eosinophils% 4.2 % (0-5); Hematocrit 42.6 % (40-54); Hemoglobin 14.5 g/dL (13.0-16.5); Lymphocyte # 2.48 X10^3/ul (4.0); Mean Corpuscular Hgb 30.6 pg (27.0-32.0); Mean Corpuscular Volume 89.9 fL (80-94); Mean Platelet Vol. 11.2 fl (6.2-12.0); Monocyte# 0.44 X10^3/uL; Monocyte% 6.2 % (0-10); NRBC Flagged by Analyzer 0 % (0-5); Neutrophil # 3.78 X10^3/uL (2.7-7.7); Neutrophil % 53.3 % (47-70); Platelet Count 217 K/mm3 (150-450); RBC Distribution Width CV 12.7 % (11.6-14.6); RBC Distribution Width SD 41.7 fl (35.1-43.9); Red Blood Count 4.74 M/mm3 (4.6-6.2); White Blood Count 7.1 K/mm3 (4.4-11.0)
[2020-12-28 00:42] LABS: Bacteria 0 SEEN /hpf (None Seen); Mucous, Urine 0 SEEN /hpf (<or=2+); Red Blood Cells-Urine 0 SEEN /hpf (0-5); Squamous Epithelial Cells - UA 0 SEEN /hpf (0-5); White Blood Cells 0 SEEN /hpf (0-5)
[2020-12-28 00:44] LABS: Glucose, Dipstick Normal (Normal); Ketone-Dipstick Negative (Negative); Leukocyte Esterase-Dipstick Negative /ul (Negative); Nitrite-Dipstick Negative (Negative); Occult Blood-Urine Negative /ul (Negative); Protein-Dipstick Negative (Negative); Urine Bilirubin Dipstick Negative (Negative); Urine Clarity Clear (Clear); Urine Urobilinogen Normal (Normal); Urine pH 6.5 (5.0 - 8.0)
[2020-12-28 00:52] LABS: Color, Urine Yellow (Yellow)
[2020-12-28 00:55] LABS: ALB/GLOB Ratio 1.2 RATIO (0.9-2.4); AST(SGOT) 17 U/L (15-37); Alanine Aminotransfer ALT/SGPT 37 U/L (16-61); Alkaline Phosphatase 63 U/L (45-117); Anion Gap 6 (5-15); BUN 8 mg/dL (7-18); BUN/Creat Ratio 7.1 RATIO (10-20); Calcium,Total 8.8 mg/dL (8.5-10.1); Chloride 106 mmol/L (98-107); Creatinine, Serum 1.12 mg/dL (0.70-1.30); EST Glomerular Filtration Rate 79 mL/min (>60); Est Glom Filt Rate - Afr Amer 95 mL/min (>60); Estimated Creatinine Clearance 100.08 ml/min; Globulin 3.3 g/dL (2.2-4.2); Glucose 105 mg/dL (74-106); Potassium 3.6 mmol/L (3.5-5.1); Protein, Total 7.3 g/dL (6.4-8.2); Sodium Level 139 mmol/L (136-145)
[2020-12-28 00:55] LABS: Amphetamine Urine VISTA NEGATIVE (<1000 ng/mL); Barbiturate Urine VISTA NEGATIVE (< 200 ng/mL); Benzodiazepine Urine VISTA NEGATIVE (< 200 ng/mL); Cocaine Urine VISTA NEGATIVE (< 300 ng/mL); Ecstacy Urine VISTA NEGATIVE (< 500 ng/mL); Methadone Urine VISTA NEGATIVE (< 300 ng/mL); PCP Urine VISTA NEGATIVE (< 25 ng/mL); THC Urine VISTA NEGATIVE (< 50 ng/mL); Vista UDS pH Range 6
[2020-12-28 01:10] LABS: Alcohol, Blood (Medical)-Serum < 3.0 mg/dL
--- NOTE | 2020-12-28 02:38 | ED.DCSUM_ITS ---
- ER Visit Summary Date of Service: 12/28/20 Chief Complaint: Anxiety History of Present Illness: The patient is a 35 M with a history of panic and anxiety. He presents for increasing anxiety symptoms. Everything makes it worse. Nothing makes it better. He follows with a doctor in [place] and also with crisis. He is taking his medications as prescribed, including Abilify and gabapentin. He was previously on lorazepam, but has been off of it for a week and a half. He denies any suicidal homicidal thoughts. Physical Examination: Afebrile and vital signs unremarkable. Mild psychomotor agitation, and rapid flight of ideas. Normal thought content. No suicidal or homicidal ideation. No hallucinations. He is forward thinking. Heart regular. Lungs clear. Skin normal. No focal or lateralizing neurologic deficits. Test Results: EKG, labs, alcohol, tox, Covid unremarkable. TSH slightly elevated 4.4. Emergency Department Course and Treatment: Patient was treated with Ativan while awaiting results. His symptoms seem to be very bothersome, but there was no indication that he needed to be admitted involuntarily. I know crisis had spoken with him many times in the past, including about a week ago. I consulted crisis. They said he was at his baseline. He is not suicidal or homicidal and does not need hospitalization. He will follow-up with them as an outpatient. He will also follow-up with his primary care doctor for his slightly elevated TSH at 4.4. I do not believe this is causing his symptoms. Treatment Plan: As above Disposition: Discharge Impression: Anxiety This note was generated with [employer] dictation software. It may contain incorrect words, spelling, and punctuation that were not noted in review of the chart prior to signing ED Disposition - Plan for ED Patient: Referrals: Jm Ty MD [Primary Care Provider] -
--- NOTE | 2020-12-28 02:41 | ED.DEP ---
ED Disposition - Plan for ED Patient: Instructions: ED Panic Attack Referrals: Jm Ty MD [Primary Care Provider] - Additional Instructions: Follow-up with your primary care doctor for your elevated TSH at 4.4, this indicates an underactive thyroid or hypothyroidism. Follow-up as advised by crisis with your counselors.
--- NOTE | 2020-12-28 02:52 | ED.RN ---
PT GIVEN VERBAL AND PAPER DISCHARGE INSTRUCTIONS BY THIS RN AND ENCOURAGED TO FOLLOW-UP WITH CRISIS CENTER AND PRIMARY DOCTOR. PT STATES THE DOCTOR JUST WANTS TO GET RID OF ME. I INFORMED HIM THAT WAS NOT THE CASE, THAT THERE WERE NO OTHER TESTS THE DOCTOR FELT WERE APPROPRIATE FOR HIM IN THE EMERGENCY DEPARTMENT AND THAT WE WOULD LET HIM SLEEP IN BED UNTIL THE TAXIS OPENED IN THE MORNING SO HE COULD USE HIS CAB PASS TO GET HOME. PT GOT DRESSED AND STATES TAKE YOUR ROOM AND WALKED OUT OF THE DEPARTMENT.
[2020-12-28 02:59] VITALS: RESP 16
== END 2020-12-28 02:59 | disposition home or self-care (01) ==
LOC: ED 12-28 00:54
PROVIDERS: Emergency Provider Emergency Medicine; PCP Internal Medicine
DX: F41.9 Anxiety disorder, unspecified (principal); F32.9 Major depressive disorder, single episode, unspecified; Z79.899 Other long term (current) drug therapy
CPT/HCPCS: 80053; 80307; 81001; 82077; 84443; 85025; 87426; 93005; 99284

== ENCOUNTER 2021-01-03 09:00 | Outpatient (RCR) | payer MEDICAID, SELFPAY ==
--- NOTE | 2020-12-31 09:00 | BH.SGPN.GN ---
Behaviors/Verbalizations/Mental Status: []Client alert and oriented, casually dressed. Eye contact good. Motor activity appropriate. Speech within normal limits. Affect constricted, irritable and anxious. Thoughts linear, logical, no signs of hallucinations or delusions. Reviewed client?s symptom tracker, no risk or thoughts ofsuicide ideation, plan, or intent as of 12/31/20. Client Response/Progress/Benefit: []Client responded well to session, engaged throughout and participated in group discussion. Client reported feeling ?indifferent? this morning. Client reported his stressors as being on disability and having house repairs. Client did not report the use of healthy coping skills but continues to participate and come to IOP. Client reported his goals for treatment are to improve his mood. Benefited from group as client connected with peers on similar stressors and emotions. Progress limited as client has difficulty with maintenance and coping skill application outside of IOP.s. Will continue IOP to improve mood, promote the use of healthy coping skills, and reduce negative thinking patterns. Narrative Note: []
[2021-01-03 00:37] VITALS: BP 142/84; PULSE 91
--- NOTE | 2021-01-03 09:00 | BH.SGPN.GN ---
Behaviors/Verbalizations/Mental Status: []Client alert and oriented, casually dressed. Eye contact fair. Motor activity appropriate. Speech within normal limits. Affect constricted, mood irritable and anxious. Thoughts linear, logical, no signs of hallucinations or delusions. Reviewed client?s symptom tracker, no risk or plan for suicide ideation, plan, or intent as of 01/03/21. Client Response/Progress/Benefit: []Client responded well to session, engaged throughout and participated in group discussion. Client reported feeling ?optimistic? this morning. Reported his goal for the day was to make it through the day without having an anger outburst. Client stated his stressors were issues within transportation and having to get his cat to the vet. Identified thought challenging and breathing as healthy coping skills to help him accomplish his goal. Benefited from group as peers provided positive support and encouragement. Progress noted as client reports goals related to treatment, but client continues to struggle with emotional dysregulation. Will continue IOP to challenge negative thoughts, increase the use of healthy coping skills, and improve mood. Narrative Note: []
--- NOTE | 2021-01-03 10:07 | BH.SGPN.GN ---
Behaviors/Verbalizations/Mental Status: []Alert and oriented. Eye contact is fair. Motor activity is appropriate. Appearance is casual. Speech is Appropriate. Mood is euthymic. Affect is congruent. Thoughts are linear and logical. No evidence of psychosis. Client Response/Progress/Benefit: []Pt was an active participant in group discussion and activity. Connected with quote. Initially pt stated he thought growth could happen by chance. However through group discussion pt reported he changed his mind and believed that growth comes from an active choice on how to respond to a situation. Attentive during psychoeducation. Client worked with group to identify forces that can impact growth and overall mental health. Worked with group to identify internal and external forces of life. Pt benefited from increased awareness of the impact positive and negative forces can have on mental health and personal growth. Will continue in IOP to increase healthy coping, improve emotional regulation and prevent decompensation. Narrative Note: []
--- NOTE | 2021-01-03 11:10 | BH.SGPN.GN ---
Behaviors/Verbalizations/Mental Status: [] Eye contact is good. Alert and oriented. Motor activity is appropriate. Appearance is casual. grooming is appropriate. Speech appropriate. Mood is dysthymic. Affect is congruent. Thoughts are linear and logical. No evidence of psychosis or hallucinations. Client Response/Progress/Benefit: [] Pt receptive of session, listened attentively to peers, participated in the activity, and provided input throughout group discussion. Did well to better share the floor as other?s provided input. Group processed the activity and identified positive and negative forces impacting ability to complete the challenge. Pt noted that challenging negative self-talk was a positive force contributing to the group?s success. Pt was attentive during psychoeducation and appeared to benefit from increased insight on the impact of negative and positive forces on mental wellness. Completed the personal forces identification worksheet. Identified wanting to focus on increasing the positive force of mental health education by actively researching information and reaching out to his healthcare providers. Pt recommended continued IOP tx to improve healthy coping skills, reduce mental health sx, and prevent decompensation. Narrative Note: []
--- NOTE | 2021-01-05 09:01 | BH.SGPN.GN ---
Behaviors/Verbalizations/Mental Status: []Eye contact is fair to good, often looking down or at phone. Alert and oriented. Motor activity is appropriate. Appearance is casual. grooming is appropriate. Speech is Appropriate. Mood is dysthymic. Affect is congruent. Thoughts are linear and logical. No evidence of psychosis or hallucinations. Client Response/Progress/Benefit: []Pt engaged in session AEB listening to others, providing supportive feedback, and willingness to share thoughts and feelings with group. Pt did well to identify personal wins, noting he was feeling down today but is trying to focus on more of the positives than ruminate on negatives. This is progress for client as he has struggled with reframing negative thoughts in the past. Shared that he was able to spend some time trying to replace and reframe distorted thoughts about his Twitter account being suspended which has been an ongoing stressor for him. Additional win noted as making plans to clean the laundry in the basement so he can have a space of his own for practicing self-care. Pt shared current stressor as continuing to struggle with ruminating thoughts, however shared trying to reframe these thoughts when experiencing them. Progress noted in pt improved application of thought challenging and reframing tools. Recommended continued IOP tx to continue improving skill application and prevent decompensation while working on mood management. Narrative Note: []
--- NOTE | 2021-01-05 09:27 | BH.MDN ---
Multi-Disciplinary Note - Note 30-min Individual Time Started:: 08:40 Date: 01/05/21 Purpose of session/treatment goals addressed:: The purpose of this session was to work on goal #2 of client's tx plan. Medication concerns were also discussed. Eye Contact:: Fair Motor Activity:: Restless - frequent foot tapping. Appearance:: Disheveled Speech:: Appropriate Mood:: Anxious Affect:: Constricted Thoughts:: Linear, Logical, No evidence of hallucinations/delusions noted Staff Interventions:: Therapist provided psychoeducation on healthy coping skills to manage mood symptoms, impulse, and crisis behaviors. Therapist provided information on healthy alternatives to emotion release as well as strategies to increase distress tolerance. Therapist also introduced dialectical thinking to help client combat all or nothing thoughts that reinforce anger. Client Response:: Client responded well to session, open to meeting with therapist. Client stated his anxiety has been very high this morning. Client expressed concern that he needs a medication for anxiety and shared he is open to trying anything. Discussed topics from last session including anger triggers and emotional responses. Client receptive to reviewing the maintenance cycles for anxiety and anger. Discussed the benefit of practicing distress tolerance skills to help client reduce impulse behaviors. Client willing to practice DDD (delay, distract, decide) when he feels the urge to lash out or experiences an anger trigger. Also discussed how client can begin to challenge all or nothing thinking that reinforces anger. Client receptive to learning about dialectical thinking. Client shared this skill may be hard for client, but he is willing to try. Risks/Concerns:: Client denies any suicidal ideations, plan, or intent as of 01/05/21. Progress Toward Goals/Plan:: Client?s attendance and group engagement has improved. Client continues to struggle with managing his emotions and was in the ER again on 12/27/20 for anxiety. Client would like to explore options for medication for anxiety. Client continues to endorse panic attacks, irritability, interpersonal relationship issues, lack of motivation, and mood instability. Client was receptive to feedback and skills in session. Will continue IOP tx to prevent decompensation, reduce ER visits, and increase use of internal coping skills. Time Stopped:: 09:09
--- NOTE | 2021-01-05 10:15 | BH.SGPN.GN ---
\ehaviors/Verbalizations/Mental Status: []Client alert and oriented, casually dressed and appropriately groomed. Eye contact good. Motor activity appropriate. Speech within normal limits. Affect congruent, mood euthymic. Thoughts linear, logical, no signs of hallucinations or delusions. Client Response/Progress/Benefit: []Client engaged during session AEB taking notes, providing input, and listening attentively to others. Client worked with peers on defining goals and brainstorming the benefits of goal setting. Benefits included: having a purpose or sense of direction, feels good, gives intentional focus, helps us make progress, and hold self-accountable. Contributed as group discussed the barriers that keep people from either setting goals or following through with goals. Client reported trying to predict the future as a barrier because there are many times we try to predict what will happen but often not right. Client attentive during psychoeducation on SMART goals. Appeared to benefit from learning the mental health benefits of setting goals using SMART criteria. Client will continue IOP to increase the use of healthy coping skills, improve daily functioning, and prevent decompensation. Narrative Note: []
--- NOTE | 2021-01-05 11:10 | BH.SGPN.GN ---
Behaviors/Verbalizations/Mental Status: []Client alert and oriented, casually dressed and groomed. Eye contact fair-poor. Motor activity appropriate. Speech within normal limits. Affect constricted, mood anxious. Thoughts linear, logical, no signs of hallucinations or delusions Client Response/Progress/Benefit: []Client was an active participant AEB client taking notes, providing ideas, and creating a personal goal. Client was willing to complete the worksheet in which client was challenged to develop a personal SMART goal. Client?s goal is to clean his basement for 15 minutes for two days in a row. Client shared this will benefit client has it will give him more space and reduce stress. Client stated physical health and feeling overwhelmed can be barriers, but he plans to use opposite action to overcome these barriers. Benefited from this group by developing a short-term SMART goal related to mental health. Will continue IOP tx to prevent decompensation, increase emotional regulation skills, and monitor medications. Narrative Note: []
--- NOTE | 2021-01-05 11:57 | PCM.BH.PN ---
Progress Note Progress Note: History of Present Illness/Interim History: [] The patient is a 35-year-old single male who is seen in follow-up at the [facility] behavioral health IOP program. Patient is being seen for depression and anxiety and I last saw him 3 weeks ago. Several weeks ago he started the prescription for Abilify 2 mg p.o. daily that his outpatient provider had recommended for him. Patient took it for a while and then his outpatient provider increase the dose to 4 mg p.o. daily. Patient did not feel that the Abilify was necessarily helping him and he felt that possibly the healthcare provider had not listened to him closely. The patient has an ongoing history of not trusting his medical providers and not trusting medications. Patient had a bad panic attack a few weeks ago and went to the emergency room and requested that they do the blood work that I wrote a prescription for the patient to get. That blood work was checked and his vitamin D was low and his TSH is slightly elevated at 4.4. Patient says his anxiety and depression are about the same but he is willing to try another medication at this point. He feels that the skills he is learning in the programs at the counselors are giving him in the IOP program or are very much benefiting him. He has not used any drugs or dextromethorphan. He still feels somewhat depressed and anxious. He denies suicidal ideation, homicidal ideation, thoughts of , hallucinations or delusions. Current Psychiatric Medications: [] Gabapentin 600 mg p.o. 4 times daily (for pain); Ativan 1 mg p.o. as needed for panic attacks only). Abilify 2 mg for about 1 or 2 weeks and then 4 mg daily for another week or so. Discontinued by the patient. Mental Status Examination: [] Patient is a obese 35-year-old tall male who appears normal for stated age and is seen wearing a mask due to the pandemic. He is casually dressed and groomed with good hygiene. He has no psychomotor agitation or retardation. He is cooperative and pleasant during the interview. Eye contact is good and speech is normal rate and rhythm and fluent with no pressure. Mood is depressed and anxious. Affect is constricted. Thought process is goal-directed and organized. Thought content: No evidence of thoughts of , suicidal or homicidal ideation, hallucinations or delusions. Judgment is intact. Impulsivity is moderate. Insight is improving but limited. Diagnoses: [] [place] I: [] Panic disorder; major depressive disorder, recurrent, moderate; rule out bipolar, NOS [place] II: [] Narcissistic traits [place] III: [] History of low thyroidism [place] IV:[]] Primary support issues, distrust of healthcare providers and meds Plan: [] The patient will continue the IOP program at [facility] as the support, structure, education, individual and group therapy will hopefully prevent worsening of the patient's symptoms that might require hospitalization. The patient felt safe during the interview and if at any time he does not feel safe he will let us know or go to the emergency room. The risks, options, possible complications and side effects of the medications were discussed with the patient and he understands and accepts these. He remains skeptical about medications and healthcare providers. After discussion the patient agrees to stay off the Abilify and he agrees to try Cymbalta 30 mg p.o. daily. He understands that this may help his depression and anxiety and also give him additional benefit for his pain. His TSH and vitamin D done in the emergency room recently were reviewed and his TSH is somewhat elevated at 4.4 (normal is 0.358-3.74). Discussed with the patient that he should call his primary care doctor and obtain a full thyroid profile. 1 somewhat has a history of depression and anxiety we would normally treat even a mildly elevated TSH. The importance of treating thyroid disease if low was discussed again with the patient. The patient will continue to follow-up with his outpatient providers and a prescription was sent in for Cymbalta 30 mg p.o. daily, #30, 0 refills. I will see the patient back in 2 to 3 weeks. He will continue his vitamin D medicine to0 [facility].
--- NOTE | 2021-01-10 09:00 | BH.SGPN.GN ---
Behaviors/Verbalizations/Mental Status: []Client alert and oriented, casually dressed. Eye contact fair. Motor activity appropriate. Speech within normal limits. Affect constricted, mood anxious. Thoughts linear, logical, no signs of hallucinations or delusions. Reviewed client?s symptom tracker, no risk or plan for suicide ideation, plan, or intent as of 01/10/21. Client Response/Progress/Benefit: []Client responded well to session, engaged throughout and participated in group discussion. Client reported feeling ?indifferent? this morning. Reported working on goal from last week to clean basement. Client stated having a time frame, goal date, and rewarding self as healthy coping skills to motivate himself to accomplish goal. Identified walking as a healthy coping skill to reduce anxiety and irritability. Reported a stressor as continuous home repairs and stated a [facility] goal is to move to a new place. Progress noted as client reports working on goals as well as relating treatment within daily functioning. Benefited from group as client provided positive support to peers. Will continue IOP to manage anger, challenge negative thoughts, and promote the use of healthy coping skills. Narrative Note: []
--- NOTE | 2021-01-10 10:05 | BH.SGPN.GN ---
Behaviors/Verbalizations/Mental Status: []Client alert and oriented, neatly dressed and groomed. Eye contact fair. Motor activity appropriate. Speech within normal limits. Affect constricted, mood dysthymic. Thoughts linear, logical, no signs of hallucinations or delusions. Client Response/Progress/Benefit: []Client engaged participant AEB listening to peers and providing to discussion. Client commented on the quote as well as unhealthy coping skills. Client gave examples of unhealthy coping skills such as: ?escapism? such as binge-watching TV and playing video games as well as displacing emotions on others. Group shared that people tend to use unhealthy coping skills because they are easier and provide quick relief. Client shared using unhealthy coping skills can make the metaphorical ?load? we carry ?a lot heavier.? Client participated in the group activity and connected that a healthy foundation of coping skills is composed of healthy internal and external coping skills. Client seemed to benefit from increased awareness of the importance of increasing healthy coping skills and consequences of utilizing unhealthy coping skills. Will continue IOP tx to increase emotional regulation skills and improve daily functioning. Narrative Note: []
--- NOTE | 2021-01-10 11:07 | BH.SGPN.GN ---
Behaviors/Verbalizations/Mental Status: []Client alert and oriented, casual dress, hygiene tended to. Eye contact good. Motor activity appropriate. Speech within normal limits. Affect congruent, mood dysthymic. Thoughts linear, logical, no signs of hallucinations or delusions. Client Response/Progress/Benefit: [] Client responded well to session, actively listening, providing input, and taking notes throughout. Did well to connect with personal examples provided by the group. Group discussed the different categories of coping skills which included distraction, emotional release, grounding, self-love, and thought challenging. Client participated in creating a coping skills ?menu? from the five categories of coping skills. Client's coping skill menu included: reading, music, prayer, affirmations, and T.H.I.N.K. Shared he would like to focus more on using music to cope when feeling emotionally overwhelmed. Progress noted as client self-reports increased motivation to accomplish small goals. Appeared to benefit from increasing repertoire of healthy coping skills. Will continue tx to continue challenging distorted thoughts, increase mental health sx management, and prevent decompensation. Narrative Note: []
--- NOTE | 2021-01-11 09:10 | BH.SGPN.GN ---
Behaviors/Verbalizations/Mental Status: []Client alert and oriented, casually dressed and groomed. Eye contact fair to good. Motor activity appropriate. Speech within normal limits. Affect congruent, mood euthymic and anxious. Thoughts linear, logical, no signs of hallucinations or delusions. Reviewed client?s symptom tracker, no risk for suicidal ideation, plan, or intent as of 01/11/21 Client Response/Progress/Benefit: []Responded well to session, willing to check-in with group and provide supportive feedback to fellow participants. Client reports feeling ?anxious? this morning but did not identify specific trigger for anxiety. Identified current positives as continuing to make progress on goal of cleaning his basement and garage. Discussed seeing small areas of progress has aided in continuing to motivate him to work on this goal. Additional positive is trying to begin using music as a means of emotional release. Reports current stressor is struggling with ongoing ruminative thoughts and not knowing how to best cope with these. Receptive of suggestions and supportive statements from peers and consulting hr professional. Progress in improved mood stability and reports of reduced depression. Will continue IOP tx to prevent decompensation, increase healthy coping, and improve mood stability. Narrative Note: []
--- NOTE | 2021-01-11 10:10 | BH.SGPN.GN ---
Behaviors/Verbalizations/Mental Status: [] Eye contact is good. Motor activity is appropriate. Appearance is casual. Speech is soft. Mood is euthymic. Affect is full. Thoughts are linear and logical. No evidence of psychosis. Client Response/Progress/Benefit: [] Pt was an active participant in group discussions and activities. Attentive. Pt yunior a picture depicting his current reality which included him with a cloud of negativity of his head. Desired reality is being able to combat and change that could to positivity. Also identified resiliency traits which included getting better at challenging negatives and my perspective. Also identified potential barriers from reaching his desired reality. Benefited from from increased awareness on currently mental reality and strategies to progress to desired reality. Will continue in IOP to increase support, anger mgmt, and prevent decompensation. Narrative Note: []
--- NOTE | 2021-01-11 11:10 | BH.SGPN.GN ---
Behaviors/Verbalizations/Mental Status: []Client alert and oriented, casually dressed and groomed. Eye contact good. Motor activity restless. Speech within normal limits. Affect constricted, mood euthymic. Thoughts linear, logical, no signs of hallucinations or delusions. Client Response/Progress/Benefit: []Client was an active participant in group discussion and activity. Engaged during activity and provided ideas on how to cope with internal barriers that keep clients stuck from moving towards goals. Barriers identified by client included: negative thinking, ?escapism?, and catastrophizing. Strategies identified for overcoming these barriers included: thought challenging, opposite action, and setting small goals. Client wants to work on overcoming the barrier of negative thinking by challenging his perspective and using a thought log. Benefited from group by identifying obstacles and solutions to desired reality. Client?s attendance has improved, and he appears to be practicing healthy coping skills outside of IOP. Will continue IOP tx to improve mood stability, reduce negative thinking, reduce impulsive behaviors. Narrative Note: []
--- NOTE | 2021-01-12 12:50 | BH.MTP_ITS ---
Treatment Plan Review Date of Admission:: 12/15/20 Date of Treatment Plan Review:: 01/12/21 Admitting Diagnoses:: Panic disorder; major depressive disorder, recurrent, moderate F33.1; rule out bipolar, NOS; Narcissistic traits Current Diagnoses:: Panic disorder; major depressive disorder, recurrent, moderate F33.1; rule out bipolar, NOS; Narcissistic traits Patient's Response to Treatment:: Client has been mostly consistent with attendance and reports benefitting from IOP as it reinforces healthy skills, teaches client goal setting techniques, and keeps client accountable. Client reports he has been following through with his goals of cleaning his basement and exercising. Client also is a positive group member and enjoys connecting with peers each week. Client has been receptive to feedback and homework. Status of Current Problems and Symptoms: Client continues to report daily anxiety and recently had a medication change to help reduce the intensity of his anxiety symptoms. Client continues to struggle with managing his anger and impulsivity, especially when triggered change of plans or waiting. Client also reports lack of motivation, negative thinking, and erratic sleep. Problem #1 Problem Name:: Pt will reduce depressive symptoms, anhedonia, and lack of motivation Status of Goals:: objective 1- in progress. Making progress with utilizing skil ls, has been cleaning basement and exercising. Per self-report from client, there is a decrease in depressive symptoms AEB increased activity at home and motivation. Objective 2- not accomplished yet. Currently working on incorporating thought logs into individual sessions. Team Recommendations:: Discussed with team and it is recommended to continue current tx plan goals and objectives. Problem #2 Problem Name:: Pt will increase mood stability through increasing emotional regulation Status of Goals:: Objective 1- In progress. Client has aware of triggers for anger and anxiety, but he is struggling to change his response. Client is working on thought reframing and implementing calming skills. Objective 2- In pr ogress. Currently working on thought challenging to increase mood stability. Team Recommendations:: Discussed with team and it was recommended that client work on reducing impulsivity and increasing distress tolerance skills.
--- NOTE | 2021-01-14 09:10 | BH.SGPN.GN ---
Behaviors/Verbalizations/Mental Status: [] Eye contact is good. Motor activity is appropriate. Appearance is casual. Speech is Appropriate. Mood is anxious. Affect is congruent. Thoughts are linear and logical. No evidence of psychosis. Reviewed daily check in sheet and no reports of suicidal ideations or intent. Client Response/Progress/Benefit: [] Pt was an active participant in group discussion. Attentive. Provided appropriate feedback to peers. Pt reports mental health win as utilizing his coping skills more often and relying less on PRN medications. Shared recently that he was able to identify increasing anxiety and utilized guided meditation which was beneficial. Proud that he utilized skills rather than a PRN med. He discussed anxiety and fear related to his future and not knowing what I will be doing in 5 years. Concerns that his support won't always be around and it would be beneficial for him to find a career. He discussed obstacles and possible careers. Progress noted. Benefited from group support, encouragement, and feedback. Will continue in IOP to prevent decompensation, increase healthy coping, and improve functioning. Narrative Note: []
--- NOTE | 2021-01-14 10:17 | BH.MDN ---
Multi-Disciplinary Note - Note 30-min Individual Time Started:: 08:23 Date: 01/14/21 Purpose of session/treatment goals addressed:: The purpose of this session was to work on goal #2 objective #2 of client's tx plan. Eye Contact:: Good Motor Activity:: Restless Appearance:: Casual Speech:: Appropriate Mood:: Anxious Affect:: Constricted Thoughts:: Linear, Logical, No evidence of hallucinations/delusions noted Staff Interventions:: Therapist provided psychoeducation on the most common cognitive distortions and helped client gain insight to the most prevalent distortions client uses. Therapist taught client the DBT skill of using one's buck mind to combat distortions. Therapist helped client set daily goals for the weekend to practice grounding. Client Response:: Client responded well to session, open to meeting with therapist. Client reports feeling anxious this morning and wishes he could find a way to quickly resolve anxiety. Client had a medication change last week, but he does not feel like it has been effective yet. Client received praise from therapist on progress and shared don't get your hopes up as client often believes that something bad will happen to him. Client reports he typically believes something medically is wrong with him like a hypochondriac. Client receptive to learning about the cognitive distortions and stated he connects most with predicting the future and disqualifying the positives. Receptive to learning about the DBT skill buck mind and reports that it may be beneficial. Also discussed the benefit of practicing grounding and mindfulness skills to manage anxiety in the moment. Client set a goal to practice grounding at least ten minutes each day this weekend. Risks/Concerns:: Client denies any suicidal ideations, plan, or intent as of 01/14/21. Progress Toward Goals/Plan:: Client is demonstrating progress towards tx goals AEB his high engagement in sessions, reduced DSM-5 symptoms, and generalization of coping skills. Client has not been to the ER since 12/27/20 which is progress. Client continues to struggle with mood instability, daily anxiety, irritability, anhedonia, and lack of motivation. Client was provided with resources today for outpatient psychiatrists and therapists. Client will continue IOP tx to promote use of healthy coping skills, decrease intensity of symptoms, and improve daily functioning. Time Stopped:: 08:55
--- NOTE | 2021-01-14 11:05 | BH.SGPN.GN ---
Behaviors/Verbalizations/Mental Status: []Client alert and oriented, casually dressed and groomed. Eye contact good. Motor activity appropriate. Speech within normal limits. Affect constricted, mood anxious. Thoughts linear, logical, no signs of hallucinations or delusions. Client Response/Progress/Benefit: []Client engaged AEB providing input during discussion, completing worksheet, and actively listening to peers. Client provided many examples of how anxiety can impact daily functioning. Benefited from group as client connected with peers on anxiety symptoms and understanding anxiety can take place in anyone. Client provided to discussion about physical symptoms, cognitive symptoms, and safety behaviors. Identified his safety behaviors as self-examining medical concerns, avoidance, over eating, and using substances like alcohol. Client shared his physical symptoms when feeling anxious as tightness in chest, stiff neck, restless legs, unable to focus, and ringing in ears. Progress noted as client understands how safety behaviors impact anxiety symptoms. Client will continue IOP to challenge negative thoughts, increase healthy coping skills, and manage anger. Narrative Note: []
--- NOTE | 2021-01-14 11:13 | BH.SGPN.GN ---
Behaviors/Verbalizations/Mental Status: []Client alert and oriented, casually dressed and groomed. Eye contact good. Motor activity appropriate. Speech within normal limits. Affect congruent, mood anxious and dysthymic. Thoughts linear, logical, no signs of hallucinations or delusions. Client Response/Progress/Benefit: []Client was an active participant in group discussion AEB taking notes and providing input throughout. Attentive during psychoeducation on mindfulness coping skills and their impact on mental health wellness. Noted that he has been doing well to implement body-based skills but would benefit from improving use of self-soothing and mind-based coping. The group practiced deep breathing and the ?5-senses? skill while taking a mindfulness walk. Client was able to identify self-soothing and mind-based coping skills he would like to begin practicing which included: prayer, meditation, and playing with his pets. Appeared to benefit from practicing in the moment coping skills and identifying personal mindfulness activities to manage anxiety independently. Progress noted in client?s increased willingness to implement skills learned and improved insight regarding triggers for anxiety. Client will continue IOP tx to improve daily functioning, combat distortions, and reduce mental health sx. Narrative Note: []
--- NOTE | 2021-01-17 09:00 | BH.SGPN.GN ---
Behaviors/Verbalizations/Mental Status: []Client alert and oriented, casually dressed. Eye contact fair. Motor activity appropriate. Speech within normal limits. Affect constricted, mood anxious. Thoughts linear, logical, no signs of hallucinations or delusions. Reviewed client?s symptom tracker, no risk or thoughts of suicide ideation, plan, or intent as of 01/17/21. Client Response/Progress/Benefit: []Client responded well to session, engaged throughout and participated in group discussion. Client reported feeling ?groggy? this morning. Client reported working on his goal of cleaning the basement in his house and now moving onto the garage. Client identified his personal wins as using healthy coping skills on a daily basis. Identified taking long walks, getting good sleep, listening to positive music, and following guided meditations as healthy coping skills. Client shared his stressor as feeling his baseline anxiety levels without a given reason. Appeared to benefit from group as client offered positive feedback to many other peers. Progress noted as client reports using healthy coping skills. Will continue IOP to stabilize mood, challenge negative thoughts, and promote the use of healthy coping skills. Narrative Note: []
--- NOTE | 2021-01-17 10:07 | BH.SGPN.GN ---
Behaviors/Verbalizations/Mental Status: [] Eye contact is good. Alert and oriented. Motor activity is appropriate. Appearance is casual. grooming is fair, pants ill fitting. Speech is Appropriate. Mood is dysthymic. Affect is congruent. Thoughts are linear and logical. No evidence of psychosis or hallucinations. Client Response/Progress/Benefit: [] Pt engaged participant AEB contributing input during session and engaging in activity. Pt assisted group with identifying consequences of not expressing emotions in a healthy way which included: increased isolation, getting hurt or hurting someone else, damaged reputation, reinforce distortions, and mental health negatively impacted. Shared ?you don?t have to be mean to express your emotions? however noted struggling at times with managing anger in when trying to express himself. Pt noted connecting with not wanting to get hurt and self-sabotage as a barrier to expressing one?s emotions in healthy ways. Pt did well to work with group to complete challenge activity and took on a leadership role during activity. Identified he felt comfortable during activity as he took on a role he felt capable of doing. Pt seemed to benefit from increased awareness of the impact unmanaged emotions can have on mental health. Pt is to continue IOP to increase healthy coping, improve sx management, and prevent decompensation. Narrative Note: []
--- NOTE | 2021-01-17 11:20 | BH.SGPN.GN ---
Behaviors/Verbalizations/Mental Status: []Client alert and oriented, casually dressed and appropriately groomed. Eye contact fair. Motor activity appropriate. Speech within normal limits. Affect congruent, mood euthymic. Thoughts linear, logical, no signs of hallucinations or delusions. Client Response/Progress/Benefit: []Client engaged in session AEB client taking notes and was willing to complete worksheet, provided some input. Attentively listening during psychoeducation on 4 zones of regulation and able to identify feelings and behaviors for each zone. Worked with group to identify coping skills one can use to support self in each zone. Client reported he most often is in the yellow zone because feels anxious and agitated frequently. Client reported he recognizes this results in him feeling like he is not living a very fulfilling life. Identified will manage yellow zone emotions by meditating, watching calming videos, and walk. Benefited from increased education on zones of regulation or stages of alertness for emotions and healthy coping skills to use for each zone. Will continue IOP tx to continue use of healthy coping skills, improve emotion regulation, and prevent decompensation. Narrative Note: []
--- NOTE | 2021-01-21 09:53 | BH.MDN ---
Multi-Disciplinary Note - Note 30-min Individual Time Started:: 08:46 Date: 01/21/21 Purpose of session/treatment goals addressed:: The purpose of this session was to address current symptoms, review healthy coping skills for anxiety, and establish goals for the weekend. Eye Contact:: Good Motor Activity:: Restless Appearance:: Casual Speech:: Appropriate Mood:: Anxious Affect:: Constricted Thoughts:: Linear, Logical, No evidence of hallucinations/delusions noted Staff Interventions:: Therapist reviewed status of current goals and provided encouragement. Therapist used cognitive restructuring to combat distortions reinforcing depression and anxiety. Therapist introduced the areas of self-care and asked client pick three areas to work on for homework. Therapist encouraged client to follow up with scheduling outpatient services. Client Response:: Client responded well to session, open to meeting with therapist. Client reports feeling anxious today and is worried about managing his anxiety without Ativan for the rest of the month. Client able to slow himself down and identify healthy coping skills he has been using. Client recognized that he has been using meditation, self-talk, and grounding on a regular basis. Client shared how he managed anxiety in the middle of the night which helped client go back to bed. Reflected on how in the past this incidence would have led to an ER visit. Client receptive to reviewing areas of self-care and identifying three areas he would like to work on over the weekend. Client selected spiritual, physical, and psychological. Client's goals are to drink 2-3 glasses of water a day, combat anxious thoughts that prevent client from being rastafari, and have an unplugged day. Client willing to also call outpatient providers. Risks/Concerns:: Client denies any suicidal ideations, plan, or intent as of 01/21/21. Progress Toward Goals/Plan:: Client continues to demonstrate progress towards tx goals AEB client?s self-report of practicing healthy coping skills, no recent ER visits, and report of improved functioning at home. Client has been responding well to setting daily and weekly goals. Client continues to struggle with negative self-talk, daily anxiety, irritability, and low motivation at times. Client is concerned about managing anxiety without Ativan for the next week. Client will continue IOP tx to promote the use of healthy coping skills, improve daily functioning, and further reduce intensity of symptoms. Time Stopped:: 09:20
--- NOTE | 2021-01-21 10:08 | BH.SGPN.GN ---
Behaviors/Verbalizations/Mental Status: []Client alert and oriented, casually dressed and groomed. Eye contact good. Motor activity restless. Speech within normal limits. Affect constricted, mood euthymic. Thoughts linear, logical, no signs of hallucinations or delusions. Client Response/Progress/Benefit: []Client receptive to session, listening attentively to others and providing input. Appeared to listen as the group brainstormed the positive and negative aspects of stress on physical and mental health. Group worked together to define stress and provided input during discussion about eustress vs distress. Client identified personal stressors which included: spirituality, finances, health, lack of relationships, goals, and mental health. Client states when client is overwhelmed with stress client can lash out and become less motivated. Client reports he currently does not feel too overwhelmed with stress and shared he has been able to challenge his perspective. Seemed to benefit from increased awareness of current stressors and impact of too much stress on the mind and body. Recommended to continue IOP tx to promote the use of healthy coping skills, increase mood stability, and further improve functioning. Narrative Note: []
--- NOTE | 2021-01-21 11:10 | BH.SGPN.GN ---
Behaviors/Verbalizations/Mental Status: []Client alert and oriented, casually dressed and groomed. Eye contact fair. Motor activity restless. Speech within normal limits. Affect constricted, mood anxious. Thoughts linear, logical, no signs of hallucinations or delusions. Client Response/Progress/Benefit: []Client engaged in session AEB listening attentively to others, providing input, and taking notes throughout. Client remained attentive during discussion about the 4 A's of managing stress and discussed connecting with the various benefits of each. Progress noted as client shared personal examples to the 4 A?s and how it impacts his mental health. Client?s goal is to increase his self-awareness with exploring forms of spirituality. Client took a leadership role in the group activity and helped guide peers through obstacles preventing them from reaching the goals. Benefited from group as client related to peers. Will continue IOP to promote the use of healthy coping skills, stabilize mood, and challenge negative thoughts. Narrative Note: []
--- NOTE | 2021-01-24 09:00 | BH.SGPN.GN ---
Behaviors/Verbalizations/Mental Status: []Client alert and oriented, casually dressed hygiene appeared poor. Eye contact fair. Motor activity appropriate. Speech within normal limits. Affect constricted, mood anxious. Thoughts linear, logical, no signs of hallucinations or delusions. Reviewed client?s symptom tracker, no risk or thoughts of suicide ideation, plan, or intent as of 01/24/21. Client Response/Progress/Benefit: []Client responded well to session, engaged throughout and participated in group discussion. Client reported feeling ?tired and indifferent? this morning. Client stated his stressors include wanting to move houses and his mother?s declining health. Client identified a positive and healthy coping skill as de-escalating anger and anxiety when client woke up in the middle of the night by using positive self-talk and thought reframing. Client stated his sleeping patterns decrease when anxiety increases. Client reported working on his goal of completing home repairs and maintenance. Shared self-care has been used daily. Benefited from group as client provided positive feedback and support to peers. Will continue IOP to continue the use of healthy coping skills, challenge negative thoughts, and improve mood stability. Narrative Note: []
--- NOTE | 2021-01-24 10:07 | BH.SGPN.GN ---
Behaviors/Verbalizations/Mental Status: [] Client alert and oriented, casually dressed and groomed. Eye contact good. Motor activity appropriate. Speech within normal limits. Affect congruent, mood euthymic. Thoughts linear, logical, no signs of hallucinations or delusions. Client Response/Progress/Benefit: [] Client responded well to session, attentive and contributing to discussion. Providing examples throughout. Client worked with the group to identify factors that contributed to how we define ourselves which included: society, what we?ve learned or been taught is expected, illness, family, and comparisons to others. Client reported that he has struggled with defining himself by what he has been taught by others to believe about mental health. Client reported he has experienced the impacts of mental health stigma and that client has struggled with socializing with others as a result. Client worked with group to identify and discuss social and perceived stigma. Client?s perceived stigma included defining self by other?s opinions. Client seemed to benefit from increased awareness of how mental health stigma can impact progress and self-worth. Client to continue IOP tx to promote gains in using healthy coping skills, further improve independence, and to improve daily functioning. Narrative Note: []
--- NOTE | 2021-01-24 11:10 | BH.SGPN.GN ---
Behaviors/Verbalizations/Mental Status: []Client alert and oriented, casually dressed, hygiene appeared to be tended to. Eye contact fair. Motor activity appropriate. Speech within normal limits. Affect constricted, anxious and slightly sad. Thoughts linear, logical, no signs of hallucinations or delusions. Client Response/Progress/Benefit: []Client engaged participant AEB pt providing input during discussion, taking notes and listened attentively to peers. Client worked with group to identify what mental stigma has prevented them from doing. Group brainstormed strategies to combat social and perceived stigma which included: educating others, no longer making jokes about mental illness, being open about mental health, self-compassion and not reinforcing stigma with behaviors or labels. Client stated he will attempt to decrease social stigma by educating self about the different mental illnesses so can educate others. Appeared to benefit from increasing awareness of strategies to combat stigma. Will continue IOP tx to continue use of healthy coping, challenge distorted thoughts and prevent decompensation.
--- NOTE | 2021-01-26 10:10 | BH.SGPN.GN ---
Behaviors/Verbalizations/Mental Status: []Client alert and oriented, casually dressed and groomed. Eye contact good. Motor activity appropriate. Speech within normal limits. Affect constricted, mood anxious and euthymic. Thoughts linear, logical, no signs of hallucinations or delusions. Client Response/Progress/Benefit: []Pt was an active participant in group discussion and was attentive during psychoeducation. Provided input on the quote of the day and shared ?you can kind of steer your emotions with your thoughts.? Group was primarily educational and introduced and gave examples of the 10 cognitive distortions. Pt provided some examples of personal experiences for certain cognitive distortions such as jumping to conclusions. Client stated he assumed his experience in IOP would not be effective, but ?this has worked better than I thought.? Benefited from education and increased awareness of cognitive distortions and the role that they play in negative thoughts and emotions. Pt making progress AEB client?s consistent report of practicing coping skills and no recent ER visits. Will continue IOP tx to further reduce anxiety and to improve daily functioning. Narrative Note: []
--- NOTE | 2021-01-26 11:13 | BH.SGPN.GN ---
Behaviors/Verbalizations/Mental Status: [] Client alert and oriented, casual dress, hygiene tended to. Eye contact good. Motor activity WNL. Speech within normal limits. Affect congruent. Mood anxious, euthymic. Thoughts linear, logical, no signs of hallucinations or delusions. Client Response/Progress/Benefit: [] Client was an active participant AEB client providing input during discussion, listening attentively to peers, and completed worksheet. Client attentive and actively contributing during psychoeducation and additional discussion on cognitive distortions. Provided examples of own experience with ?should/must? type distortions, noting that this has made him ?beat myself up? in the past. Client listened throughout discussion on how to reframe distorted thoughts into more realistic, rational statements, and contributed to group discussion on reframing the example distortions. Client did well to work with fellow participants in small group setting to reframe example distorted thought. Client shared plans to trying asking himself what he would tell someone else struggling with a distorted thought to aid himself in reframing his own thoughts. Client seemed to benefit from practicing identifying and reframing distorted thoughts. Client is to continue IOP to increase use of healthy coping, improve independence, and prevent decompensation. Narrative Note: []
--- NOTE | 2021-01-26 11:21 | BH.MDN ---
Multi-Disciplinary Note - Note 30-min Individual Time Started:: 09:30 Date: 01/26/21 Purpose of session/treatment goals addressed:: To address current symptoms, stressors, and negative thought patterns. Another goal was to discuss aftercare plan and set homework. Eye Contact:: Fair Motor Activity:: Restless Appearance:: Casual Speech:: Appropriate Mood:: Anxious Affect:: Congruent - slightly tearful Thoughts:: Linear, Logical, No evidence of hallucinations/delusions noted Staff Interventions:: Therapist used active listening and open-ended questions to explore client's current stressors, symptoms, and generalization of coping skills. Therapist provided emotional support and gentle thought challenging to combat distortions reinforcing anxiety. Therapist encouraged client to practice self-compassion and continue reflecting on wins. Therapist gave client homework to create a weekly schedule and routine. Client Response:: Client responded well to session, open to meeting with therapist. Client reports this weekend went well and client accomplished most of his goals. Client shared he spent five hours Sunday unplugged from electronics. Client also cleaned, exercised, and used positive self-talk. Client shared he I feel like I'm handling things, but I still don't feel completely stable. Client reports feeling anxious about the future, especially regarding his mother's health and his ability to be independent. Client is both anxious and sad about his mother getting older and was receptive to processing these emotions. Practiced cognitive restructuring and client was able to recognize personal strengths. Client and therapist also discussed aftercare plans and support client can utilize. Client stated he plans to go to [employer] and he would like to join IOP aftercare group. Client's goal for this week is to continue keeping track of wins and to create a weekly schedule. Risks/Concerns:: Client denies any active suicidal ideations, plan, or intent as of 01/26/21. Future oriented Progress Toward Goals/Plan:: Client continues to demonstrate progress towards tx goals. Reports consistently using calming skills, cleaning, and exercise. Client has also been out of the ER for over 30 days. Client is currenty reporting anxiety about the future and his mother's health. Client expressed worries about increasing independence and maintenance. Receptive to doing IOP aftercare post IOP discharge and was willing to try other support groups as well. Will continue IOP tx to promote gains, combat distortions, and further improve daily functioning. Time Stopped:: 10:00
--- NOTE | 2021-02-01 10:10 | BH.SGPN.GN ---
Behaviors/Verbalizations/Mental Status: []Client alert and oriented, casually dressed and groomed. Eye contact good. Motor activity slightly restless. Speech within normal limits. Affect congruent. mood euthymic. Thoughts linear, logical, no signs of hallucinations or delusions. Client Response/Progress/Benefit: []Client responded well to session, attentive and engaged throughout discussion and activity. Agreed with session quote and shared ?if you don?t handle setbacks well, problems will get worse.? The group discussed how mindset and one?s reaction to setbacks determines progress. Client shared failure looks different for everyone, and that overcoming setbacks can be easier or trigger ?weeks of depression.? Client reported that a negative mindset following a setback can led to not wanting to try in the future due to fear of failing. Client appeared to benefit from gaining awareness of the impact fear of failure can have on one?s mental health and wellbeing. Progress noted as client continues to report improved mood and increased activity. Will continue IOP to increase the use of healthy coping skills, challenge negative thoughts, and further improve daily functioning. Narrative Note: []
--- NOTE | 2021-02-01 11:10 | BH.SGPN.GN ---
Behaviors/Verbalizations/Mental Status: []Client alert and oriented, casually dressed and groomed. Eye contact good. Motor activity appropriate. Speech within normal limits. Affect constricted, mood anxious. Thoughts linear, logical no signs of hallucinations or delusions. Client Response/Progress/Benefit: []Client responded well to session, participating during the group activity and willing to complete the worksheet. Client completed the fear of failure worksheet and reported that fear of failure has kept client from having a career and from progress. Client able to identify barriers that reinforce fear of failure which included: unrealistic expectations and negative self-talk. Client attentive during discussion of the different strategies to help overcome fear of failure. Client reports strategies will use to combat fear of failure include: learning from past mistakes and looking at the bigger picture. Client appeared to benefit from increasing insight to barriers and learning healthy coping skills. Will continue IOP tx to promote use of healthy coping skills, improve emotion regulation, and prevent decompensation.
--- NOTE | 2021-02-01 11:34 | BH.MDN ---
Multi-Disciplinary Note - Note 30-min Individual Time Started:: 09:30 Date: 02/01/21 Purpose of session/treatment goals addressed:: The purpose of this session was to explore current progress and application of coping skills. Another goal was to discuss discharge and process any stressors. Eye Contact:: Good Motor Activity:: Appropriate Appearance:: Casual Speech:: Appropriate Mood:: Euthymic Affect:: Congruent Thoughts:: Linear, Logical, No evidence of hallucinations/delusions noted Staff Interventions:: Therapist used active listening and open-ended questions to explore client's current stressors, symptoms, and generalization of coping skills. Therapist provided emotional support and gentle thought challenging to combat distortions reinforcing anxiety. Therapist assisted client in identifying coping skills that will promote gains made in IOP. Client Response:: Client responded well to session, open to meeting with therapist. Client shared that he has been doing much better and feeling much better. Client reports belief this is due to the combination of IOP and medication. Client stated this weekend he exercised, used mindfulness, and accomplished many tasks. Client shared he continues to feel some anxiety about maintaining stability, but client reports he is much more confident in his ability to manage negative thoughts. Client completed paperwork needed to start outpatient therapy following IOP discharge. Client also identified coping skills he wants to continue using to manage symptoms. These included: physical activity, music, keeping a balance, thought challenging, reminding himself that thoughts are thoughts not facts focusing on the present, and practicing mindfulness. Risks/Concerns:: Client denies any suicidal ideations, plan, or intent as of 02/01/21. Progress Toward Goals/Plan:: Client continues to demonstrate progress towards tx goals. Reports consistently using calming skills, cleaning, and exercise. Client has also been out of the ER for over a month and he has not used his ativan in over a week. Client continues to have anxious thoughts and mild symptoms of depression, but he is reporting more stability. Client completed paperwork needed for outpatient counseling. Will continue IOP tx to promote gains, increase mood stability, and further improve daily functioning. Time Stopped:: 10:00
== END 2021-02-02 23:59 ==
LOC: BHIOP 09:00
PROVIDERS: PCP Internal Medicine; Referring Provider Psychiatry & Neurology Psychiatry; Visit Provider Psychiatry & Neurology Psychiatry
DX: F33.1 Major depressive disorder, recurrent, moderate (principal); E66.9 Obesity, unspecified; Z79.899 Other long term (current) drug therapy
CPT/HCPCS: 99214; H0035; H2012; H2020; 90832

== ENCOUNTER 2021-02-05 05:51 | Emergency (ER) | payer MEDICAID, SELFPAY ==
[2021-02-05 05:53] VITALS: BP 144/106; PULSE 77; RESP 18; TEMP 36.8; O2SAT 99; BMI 36.2
--- NOTE | 2021-02-05 06:03 | ED.VIS.GEN ---
History of Present Illness Chief Complaint: Anxiety Informant: Patient Narrative: With a history of chronic anxiety had a anxiety attack this evening. He gets them about once a month. He was taking Ativan but has been out for a week or so. He got 10 tablets at the beginning of January. He does go to behavioral health counseling. Comes in for further evaluation and treatment. He stated he feels a lot better currently as it is coming down. No home treatment. - Past Medical History (1) Muscle spasm of back Status: Acute (2) Tension headache Status: Acute (3) Thoracic myofascial strain Status: Acute (4) Chronic back pain Status: Chronic (5) Generalized anxiety disorder with panic attacks Status: Chronic (6) Segmental and somatic dysfunction of cervical region Status: Chronic (7) Segmental and somatic dysfunction of lumbar region Status: Chronic (8) Segmental and somatic dysfunction of thoracic region Status: Chronic Past Medical History - Allergies and Home Meds Allergies/Adverse Reactions: Allergies No Known Allergies Allergy (Verified 12/27/20 23:59) Primary Care Physician: Jm Ty MD [Primary Care Provider] - Prior records reviewed: Yes Past Medical History: - Surgical History: no surgical history Lives: With Family Smoking Status: Current every day smoker Alcohol: None Drugs: None Review of Systems General: Denies: Chills, Fever, Sweats Eyes: Denies: Visual changes - bilaterally, Diplopia ENT: Denies: Rhinorrhea, Sore throat Cardiovascular: Denies: Chest pain, Palpitations Respiratory: Denies: Dyspnea, Cough, Dyspnea on exertion Gastrointestinal: Denies: Abdominal pain, Nausea, Vomiting, Diarrhea, Melena, Hematochezia Genitourinary: Denies: Dysuria, Hematuria, Frequency Musculoskeletal: Denies: Back pain, Extremity Pain Skin: Denies: Rash, Wounds Neurological: Denies: Headache, Weakness, Numbness Physical Exam Vital Signs/Narrative: Vital Signs Temp Pulse Resp BP Pulse Ox 02/05/21 05:53 98.2 F 77 18 144/106 H 99 General: Well nourished, Well developed, No Acute Distress Head: Normocephalic, Atraumatic Eyes: Perrl, EOMI ENT: Moist mucous membranes, No rhinorrhea Neck: Supple, Nontender Cardiovascular: Regular rate, Regular rhythm, No murmurs Respiratory: No distress, CTA bilaterally, Chest nontender Abdomen: Soft, Nontender, Nondistended, Normal bowel sounds Back: Nontender, Normal Inspection Extremities: Nontender, No edema Skin: Normal color, No rash Neurological: Alert, Oriented x3, Cranial nerves II-XII grossly intact, Normal Strength, Normal Sensation Psychological: Normal affect, Normal Mood Diagnostic/Tx/Re-eval - Medical Decision Making Patient given oral Ativan 1 dose at his request of a half a milligram. He will be discharged to follow-up with his behavioral health specialist for chronic anxiety ED Disposition - Plan for ED Patient: Disposition: Home or Assisted Living Diagnosis: Anxiety attack Instructions: ED Panic Attack Referrals: Jm Ty MD [Primary Care Provider] -
[2021-02-05] MEDS: LORazepam 0.5 MG Tablet PO (06:06)
[2021-02-05 06:21] VITALS: PULSE 70; RESP 18; O2SAT 98
--- NOTE | 2021-02-05 06:22 | ED.RN ---
PT CALLED FOR A [facility].
== END 2021-02-05 06:22 | disposition home or self-care (01) ==
LOC: ED 06:15
PROVIDERS: Emergency Provider Emergency Medicine; PCP Internal Medicine
DX: F41.0 Panic disorder [episodic paroxysmal anxiety] (principal); F17.200 Nicotine dependence, unspecified, uncomplicated
CPT/HCPCS: 99284

== ENCOUNTER 2021-02-09 09:00 | Outpatient (RCR) | payer MEDICAID, SELFPAY ==
[2021-02-03 00:44] VITALS: BP 142/84; PULSE 91
--- NOTE | 2021-02-09 07:15 | BH.AFTERPLAN ---
Aftercare Plan - Demographics Treatment End Date:: 02/09/21 Psychiatrist:: Koki Castillo Psychiatrist Office #:: [phone] [facility]/IOP Therapist:: Jinny Lin Therapist Phone #:: [phone] - Medications Home Medications: Home Medications Gabapentin [Neurontin] 600 mg PO 4X/DAY 11/27/20 Cholecalciferol (Vitamin D3) [Vitamin D3] 25 mcg PO DAILY 12/15/20 Lorazepam [Ativan] 0.5 mg PO TID PRN PRN 12/15/20 Duloxetine HCl [Drizalma Sprinkle] 30 mg PO DAILY 02/05/21 - Plan Details Progress/Aftercare Plan Details:: Wilian has made significant strides since starting IOP as shown by his improved mood, increased confidence in his skills, and increased ability to cope with daily stressors. When Wilian started IOP he was experiencing significant anxiety and panic attacks. Wilian?s anxiety was significantly impacting his daily life and he was often in the ER to get help for his symptoms. Wilian was struggling with managing anger as well. Now, Wilian can catch and challenge distortions that reinforced anxiety and self-doubt, use healthy coping skills more easily, and he feels more confident in his abilities. Wilian is more active, accomplishing goals at home, and is in the ER much less as he has been able to learn more ways to manage anxiety. Wilian self-reports progress in accomplishing goals at home and the ability to talk himself out of panic attacks. Wilian was highly active in both group and individual therapy sessions. Wilian contributed to group discussions, offered support to peers, and consistently followed through with his individual goals. In individual sessions, Wilian was receptive to feedback, consistent with homework, and willing to push himself despite anxiety. Wilian?s high motivation, willingness to challenge himself, and insight are likely the reason for his progress. Strategies for Success:: 1.Keep active, you?ve been doing great! Remember to listen to your body and keep a balance. 2. Wait did I say keep a balance?! Well it?s a good one to repeat. 3. Challenge your negative thoughts and remind yourself that ?thoughts are thoughts not facts.? 4. Focus on the present moment. 5. Continue practicing mindfulness and ?unplug? every once and a while. 6. Continue to set small SMART goals. 7. Use self-talk and positive distractions when anxiety gets too high. 8. Remember to pause and breathe when frustrated or overwhelmed. 9. Give yourself credit for all you have accomplished. 10. Keep a routine! - Appointments Appointments/Referrals to Other Services:: 1. Follow up with your PCP for medication management and let us know if this changes. 2. Follow up with [facility]. They will be reaching out this week! 3. Follow up with IOP aftercare starting on 02/17/21 from 2-3:30pm.
--- NOTE | 2021-02-09 08:33 | BH.DS ---
Discharge Summary - Demographics Date of Admission:: 12/15/20 Discharge Date: 02/09/21 Presenting Problems at Admission:: Client is a 35-year-old male with a history of panic disorder and MDD. Client has a history of three previous hospitalizations with the most recent being 2017 for suicidal ideations. Client was referred to [facility] by Brandon grossman after presenting to the [facility] ER on 11/27/20 and 11/28/20 for anxiety. Client was often in the ER for anxiety and panic attacks. At admission, client presented with increased agitation and irritability. Client endorsed a depressed mood, low energy, isolation, and health anxiety. Client was also self-medicating with 900mg of Dextromethorphan and he found it initially beneficial, but then found it worsened panic symptoms. Client had a history of medications not working effectively which only further increased irritability and anxiety. At admission, client's symptoms were impacting client's social and daily functioning. Discharge Diagnoses:: Panic disorder; major depressive disorder, recurrent, moderate; rule out bipolar, NOS Reason for Discharge:: Client has made significant progress towards treatment goals AEB reduction in DSM-5 symptom scores, self-report of increased ability to manage emotions and negative thoughts, and improved functioning. Client no longer meets criteria for IOP level of care and will transition to outpatient counseling and IOP aftercare. - Treatment Progress During Treatment & Response: Client responded very well to treatment and made significant progress. Client has gained confidence in his ability to manage anxiety, anger, and depression. Client has reduced his number of ER visits and has been consistently using healthy coping skills. Client?s overall symptoms decreased by 44% since he started the program. Depression has decreased by 50%, thoughts of wanting to hurt self decreased by 100%, anger has decreased by 50%, and anxiety has decreased by 50%. Client was an active group member who gave insight to discussion, feedback to peers, and connected the topics to his daily life. Client was highly engaged in individual sessions and is consistent with homework and skill utilization outside of group. Client?s high motivation to change and consistency with pushing himself outside of his comfort zone are likely the reasons for his significant progress. Issues Still to be Addressed:: Client can benefit from ongoing individual therapy to promote gains made in IOP. Additionally client would like to work on his interpersonal skills, thought challenging, anticipatory grief, and improving positive view of self. Discharge Recommendations/Instructions:: Client will follow up with his PCP for medication management. Client has sent in initial paperwork for [facility] and is waiting get a call to schedule his first session. Client plans to participate in the [facility] aftercare group that starts 02/17/21 for client. Additionally, client is interested in going to [facility] for gain additional support. Discharge Handout: Complete Discharge Handout with client on aftercare options and continuity of care.
--- NOTE | 2021-02-09 09:00 | BH.SGPN.GN ---
Behaviors/Verbalizations/Mental Status: []Client alert and oriented, casual in appearance. Eye contact fair. Motor activity appropriate. Speech within normal limits. Affect constricted. mood anxious. Thoughts linear, logical, no signs of hallucinations or delusions. Pt denied thoughts of suicide or intent per pt's symptom tracker. Client Response/Progress/Benefit: [] Patient responded well to session as evidenced by him listening attentively to others and sharing thoughts and feelings. Patient stated feeling extremely anxious this morning, asking if it was normal to feel this anxious on his last day. Patient reported feeling anxious about leaving IOP because it is a source of support and accountability. Patient identified progress with managing panic attacks more effectively, decrease in anxiety, ability to challenge thoughts, and easier ability to shut down junk thoughts. Patient identified current stressor is his mom's health. Patient seemed to benefit from support from peers and identifying treatment progress since starting IOP. Patient is to discharge from IOP today. Narrative Note: []
--- NOTE | 2021-02-09 10:00 | BH.SGPN.GN ---
Behaviors/Verbalizations/Mental Status: [] Eye contact is good. Motor activity is appropriate. Appearance is casual. Speech is Appropriate. Mood is anxious. Affect is congruent. Thoughts are linear and logical. No evidence of psychosis. Client Response/Progress/Benefit: [] Patient was an active participant in group discussion and activity. Provided insight into discussion on defining self-care and its benefits for mental wellness. Also participated and provided feedback on consequences of not performing self-care which included; consistent stress,increased irritability, physical health issues, and negative impact to relationships, work, and other aspects of functioning. After they identified the benefits and consequences group identified the obstacles and myths associated with self-care which keep them from performing self-care. Peers and pt identified 10 myths of self-care which included; You don't deserve it; You don't need it; Can't do it unless everything else is completed; Its selfish; Time-consuming; Saltese; It has to be fun; Self-care ignores others. Pt then joined a small group and challenged these myths among its members. Benefited from group by increasing awareness and benefits of self-care. This is pt's last day of IOP. Narrative Note: []
--- NOTE | 2021-02-09 11:10 | BH.SGPN.GN ---
Behaviors/Verbalizations/Mental Status: []Client alert and oriented, casually dressed, hygiene appeared to be tended to. Eye contact fair. Motor activity appropriate. Speech within normal limits. Affect constricted, mood anxious. Thoughts linear, logical, no signs of hallucinations or delusions. Client Response/Progress/Benefit: []Client engaged participant AEB client providing input during discussions and listened attentively to peers. Participated in group discussion on the various areas of self-care, benefits, and types of self-care activities for each area. Client completed worksheet in which client identified current self-care practices and what self-care activities client wants to start using. Client reported he will focus on improving psychology self-care as learning a new skill has been positive for client?s overall well-being in the past. Client stated he will do this by getting back into learning French. Appeared to benefit from reflecting on the area of self-care client can improve and setting a small goal. Will discharge from IOP tx as he has made significant progress and no longer meets criteria for IOP level of care. Narrative Note: []
== END 2021-02-09 13:51 | disposition home or self-care (01) ==
LOC: BHIOP 09:00
PROVIDERS: PCP Internal Medicine; Referring Provider Psychiatry & Neurology Psychiatry; Visit Provider Psychiatry & Neurology Psychiatry
DX: F41.0 Panic disorder [episodic paroxysmal anxiety] (principal); F33.1 Major depressive disorder, recurrent, moderate
CPT/HCPCS: H2020

== ENCOUNTER 2021-02-17 14:00 | Outpatient (RCR) | payer MEDICAID, SELFPAY ==
--- NOTE | 2021-02-17 14:00 | BH.SGPN.GN ---
Behaviors/Verbalizations/Mental Status: []Client alert and oriented, casual appearance. Eye contact fair. Motor activity appropriate. Speech within normal limits. Affect congruent, mood anxious. Thoughts linear, logical, no signs of hallucinations or delusions. Client Response/Progress/Benefit: []Pt responded well to session AEB pt openly sharing thoughts and feelings and completing worksheet. Pt stated he has been struggling because his mom went to the hospital for shortness of breath and diagnosed with congestive heart failure. Pt reported he is adjusting to being his mom's caregiver, but feels like he is handling it well. Pt stated although he is stressed about his mom's health he recognizes this is making him more responsible. Pt identified additional positive as doing pushups daily. Pt responded well to discussion about self-care. Pt identified self-care plan for the week is to: walk, watch funny movies, look for a new career, foster friendships, find spiritual community, and positive affirmations. Progress noted with pt being able to effectively manage significant stressor of mom being sick. Pt to continue aftercare to maintain gains and prevent decompensation. Narrative Note: []
--- NOTE | 2021-02-17 15:14 | BH.MTP ---
Master Treatment Plan - Patient Information Program Physician:: Dr. Koki Castillo Primary Therapist:: Jinny OMER - Psychiatric Diagnoses Psychiatric Diagnoses:: Panic disorder; major depressive disorder, recurrent, moderate; rule out bipolar, NOS Diagnosis Code(s):: F 33.1 - Estimated LOS Estimated LOS (in weeks):: 12 Problem/Goal #1 - Problem/Goal #1 Stated Goal:: client will maintain or see a reduction in symptoms AEB client score on the DSM 5 cross-cutting measure and improve client's daily functioning. - Objectives Objective #1 Stated Objective: Client will continue to consistently apply healthy coping skills to maintain progress made in IOP tx. Interventions: Through group therapy, client will review warning signs and triggers as well as healthy coping skills learned in IOP tx to successfully maintain gains while transitioning into outpatient therapy. Discharge Criteria: Client will have accomplished this goal when client's score on the DSM-5 cross-cutting measure has either maintained or reduced over a 12 week period. Target Date: 05/12/21 Review Date: 03/17/21 Status: open Objective #2 Stated Objective: Client will learn and utilize 2-3 maintenance strategies to prevent decompensation. Interventions: Through group therapy, client will be provided with education on healthy maintenance behaviors, relapse prevention techniques, and healthy coping strategies. Discharge Criteria: Client will have accomplised this goal when can report using at least 2 maintenance skills to prevent decompensation. Target Date: 05/12/21 Review Date: 03/17/21 Status: open
== END 2021-03-04 23:59 ==
LOC: BHOG 14:00
PROVIDERS: PCP Internal Medicine; Referring Provider Psychiatry & Neurology Psychiatry; Visit Provider Psychiatry & Neurology Psychiatry
DX: F33.1 Major depressive disorder, recurrent, moderate (principal); F41.0 Panic disorder [episodic paroxysmal anxiety]
CPT/HCPCS: 90853

== ENCOUNTER 2021-03-10 14:00 | Outpatient (RCR) | payer MEDICAID, SELFPAY ==
--- NOTE | 2021-03-10 14:00 | BH.SGPN.GN ---
Behaviors/Verbalizations/Mental Status: []Client alert and oriented, casually dressed and groomed. Eye contact fair. Motor activity appropriate. Speech within normal limits. Affect constricted. Mood anxious.. Thoughts linear, logical, no signs of hallucinations or delusions. Client Response/Progress/Benefit: []Client responded well to session AEB client sharing thoughts and feelings and listening attentively to peers. Client reported he has been taking care of his mom for the last 3 weeks after she got out of the hospital which he stated was stressful. Client stated a positive is that she is starting to feel better and able to do more for herself. Client reported his anxiety has decreased since his mom has been doing better. Client reported feeling drained because he isn't used to so much responsibility. Client reported he watched a video about hypochondria which he stated has helped decreased his health anxiety. Client contributed to the discussion on gratitude and its benefits. Client attentive during discussion of internal vs. external gratitude. Client created weekly plan on what she will identify for gratitude over the next 7 days. Appeared to benefit from connecting with peers and creating plan to identify gratitude. Will continue IOP aftercare to continue use of healthy coping skills, challenge distorted thoughts and prevent decompensation.
--- NOTE | 2021-03-24 14:00 | BH.SGPN.GN ---
Behaviors/Verbalizations/Mental Status: []Client alert and oriented, casual dress, hygiene tended to. Eye contact fair. Motor activity appropriate. Speech within normal limits. Affect congruent, mood euthymic. Thoughts linear, logical, no signs of hallucinations or delusions. Client Response/Progress/Benefit: []Pt stated a positive and a stressor is choosing to quit smoking cigarettes two days ago. Pt reported he is coping overall okay without have cigarettes. Pt identified additional mental health positives as taking time to study Telugu and able to manage panic symptoms more effectively. Pt engaged in brainstorming of various daily routine ideas. Pt completed task of identifying activities to complete either on a daily or weekly basis for her routine. Patient identify routine items to include: hygiene, tidy up around house, organize different rooms and go on walks. Pt stated he struggles with following a routine but recognizes importance of improving on this. Pt seemed to benefit from support from peers and learning about benefits of routine. Pt to continue aftercare group to maintain gains, decrease anxious symptoms and prevent decompensation. Narrative Note: []
--- NOTE | 2021-03-31 14:00 | BH.SGPN.GN ---
Behaviors/Verbalizations/Mental Status: []Client alert and oriented, casually dressed and groomed. Eye contact good. Motor activity appropriate. Speech within normal limits. Affect congruent, mood euthymic. Thoughts linear, logical, no signs of hallucinations or delusions. Client Response/Progress/Benefit: []Pt receptive of session, engaged throughout. Pt noted she was feeling happy but somewhat disappointed this afternoon. Attributes this to struggling with successfully quitting smoking. Receptive of several suggestions provided by fellow participants. Additionally, discussed progress towards goal to walk each day which has helped improve his mood and keep him motivated. Receptive of discussion on personal accountability and its importance in maintaining mental health stability. Pt worked cooperatively with group to identify benefits of maintaining personal accountability. Engaged in discussion on different accountability styles and brainstorming strategies for improving ability to hold themselves accountable. Pt identified that for homework he will practice using visual accountability resources via keeping pictures and items that remind him of his goals out in the open for him to look at each day. Pt seemed to benefit from support from peers and increasing understanding of personal accountability benefits and strategies. Progress noted in client?s report of improved mood stability and progress towards personal goals. Will continue IOP aftercare group. Narrative Note: []
--- NOTE | 2021-04-12 15:58 | BH.MTP_ITS ---
Treatment Plan Review Date of Admission:: 02/17/21 Date of Treatment Plan Review:: 03/24/21 Admitting Diagnoses:: Panic disorder; major depressive disorder, recurrent, moderate; rule out bipolar, NOS Current Diagnoses:: Panic disorder; major depressive disorder, recurrent, moderate; rule out bipolar, NOS Patient's Response to Treatment:: Pt responding well to treatment AEB pt's mostly consistent attendance, active engagement in group discussions, and reporting use of skills outside treatment environment. Status of Current Problems and Symptoms: Pt reporting increased anxiety due to a recent health scare his mother experienced. Pt has been able to decreased depressive symptoms since discharge from IOP tx, but his DSM-5 scores for anxiety have increased. Pt continues to struggle with intrusive thinking and negative self-talk. pt has recently stopped smoking, so this could also contribute to his increased DSM-5 symptoms. Lastly, pt has not yet followed up with outpatient counseling at [facility] which could impact client?s ability to maintain gains. Problem #1 Problem Name:: Pt will maintain or see a reduction in sx AEB client score on the DSM-5 Status of Goals:: Objective 1- incomplete with ongoing work encouraged. Client?s scores on the DSM-5 for depression have decreased by 17% since IOP discharge. However, his DSM-5 scores for anxiety have increased by 50% since IOP discharge. Overall, client?s DSM-5 scores have increased due to an influx in current stressors and not following up with an outpatient therapist, however client repo rts improved ability to cope with these. Objective 2- complete with ongoing work encouraged. Client has been consistently reporting use of challenging unrealistic expectations, practicing mindfulness, exercising, and using positive self-talk. Team Recommendations:: Recommended client continue IOP aftercare group in addition to attending regular outpatient counseling in order to maintain gains. Client also encouraged to attend [facility] as this was one of client's goals during IOP.
== END 2021-04-04 23:59 ==
LOC: BHOG 14:00
PROVIDERS: PCP Internal Medicine; Referring Provider Psychiatry & Neurology Psychiatry; Visit Provider Psychiatry & Neurology Psychiatry
DX: F41.0 Panic disorder [episodic paroxysmal anxiety] (principal); F33.3 Major depressive disorder, recurrent, severe with psychotic symptoms
CPT/HCPCS: 90853

== ENCOUNTER 2021-04-07 09:00 | Outpatient (RCR) | payer MEDICAID, SELFPAY ==
--- NOTE | 2021-04-07 14:00 | BH.SGPN.GN ---
Behaviors/Verbalizations/Mental Status: []Client alert and oriented, casually dressed, hygiene tended to. Eye contact good. Motor activity appropriate. Speech within normal limits. Affect congruent, mood euthymic. Thoughts linear, logical, no signs of hallucinations or delusions. Client Response/Progress/Benefit: []Client responded well to session, attentive and engaged throughout. Reported feeling alright today as he has been making some progress with quitting smoking. Discussed reminding himself of consequences of smoking which has been helpful. Additionally, discussed making progress in finding ways to make his current living situation more enjoyable so he is focusing less on not liking the house. Noted cleaning and rearranging things which has added some. Also using skills of thought challenging, reaching out to supports, and healthy distraction. Client contributed to discussion on healthy decision making. Aided in identifying personal barriers and strategies to improve healthy decisions. Client reported he would like to work on improving consistency of healthy skill application by setting daily reminders to use his skills. Appeared to benefit from reflecting on application of coping skills, identifying barriers, and creating a game plan to improve healthy decision-making skills. Will continue IOP aftercare to continue the use of healthy coping skills and maintain stability. Narrative Note: []
--- NOTE | 2021-04-21 14:00 | BH.SGPN.GN ---
Behaviors/Verbalizations/Mental Status: []Client alert and oriented, casually dressed. Eye contact good. Motor activity appropriate. Speech within normal limits. Affect congruent, mood euthymic. Thoughts linear, logical, no signs of hallucinations or delusions. Client Response/Progress/Benefit: []Pt responded well to session AEB pt providing input during discussion and listening attentively to peers. Pt reported mental health positive as walking 6 miles yesterday. Pt stated continuing to make himself walk as been beneficial for physical and mental health. Pt engaged in discussion about self-love. Connected with others that engaging in self-love is not something she has been doing often. Pt worked with group to identify strategies to increase self-love. Pt reported he wants to work on self-love by challenging negative thoughts and reminding himself to not believe everything that he thinks. Pt seemed to benefit from reviewing treatment progress and stressors as well as learning about how to increase self-love. Pt to continue aftercare program to maintain treatment progress, continue use of healthy coping, and prevent decompensation.
--- NOTE | 2021-04-28 14:00 | BH.SGPN.GN ---
Addendum entered and electronically signed by Emerson Desai [facility] 10/05/21 14:32: Case discussed with Dr. Ashby with plan to continue in IOP with dx of Panic disorder; major depressive disorder, recurrent, moderate; Original Note: Behaviors/Verbalizations/Mental Status: []Client alert and oriented, neatly dressed and groomed. Eye contact good. Motor activity appropriate. Speech within normal limits. Affect constricted, mood euthymic. Thoughts linear, logical, no signs of hallucinations or delusions. Client Response/Progress/Benefit: []Client responded well to session, client?s emotion today is ?happy? was able to ?walk off? a panic attack earlier this week. Client reports he has been walking a lot and is losing weight which is desired. Client notes no major stressors this week and continues to use healthy coping skills. Receptive of discussion on self-talk and its influence in maintaining long-term mental health stability. Contributed to strategies for improving effective creation and application of believable personal affirmations. Client created several affirmations and shared one with the group. Client plans to put ?this temporary? next to his computer to help client overcome anxiety. Client to continue aftercare group to promote gains and further increase application of healthy coping skills. Narrative Note: []
== END 2021-05-04 23:59 ==
LOC: BHOG 09:00
PROVIDERS: PCP Internal Medicine; Referring Provider Psychiatry & Neurology Psychiatry; Visit Provider Psychiatry & Neurology Psychiatry
DX: F33.1 Major depressive disorder, recurrent, moderate (principal); F43.10 Post-traumatic stress disorder, unspecified; Z79.899 Other long term (current) drug therapy
CPT/HCPCS: 90853

== ENCOUNTER 2021-05-05 08:51 | Outpatient (RCR) | payer MEDICAID, SELFPAY ==
--- NOTE | 2021-05-05 10:42 | BH.DS_ITS ---
Discharge Summary - Demographics Date of Admission:: 02/17/21 Discharge Date: 05/05/21 Presenting Problems at Admission:: Client discharged from IOP tx and transitioned to IOP aftercare to maintain gains client made in IOP and to reinforce healthy coping skills. At admission to IOP aftercare, client reported experiencing slight symptoms of anxiety and depression. Client was also experiencing life stressors such as working on seeking employment, family health stressors and related anticipatory grief, struggling with interpersonal skills, and continued self-esteem issues that caused anxiety at times. Despite these stressors, client reported ability to cope with his mental health and was activity using healthy skills. Discharge Diagnoses:: Major depressive disorder, recurrent, moderate F33.1; generalized anxiety disorder Reason for Discharge:: Client has accomplished his tx goals AEB his ability to maintain mood stability and gains made in IOP. Client's DSM-5 scores have slightly increased from end of IOP to end of aftercare which may be explained by increased in his mother?s medical issues which has caused additional stress, trying to stop smoking, as well as the loss of regular support provided by the I OP program. Despite the slight influx in symptoms, client reports he has been able to prevent further escalation through consistent skill application, use of supports, and improved thought challenging skills. Client will transition to traditional outpatient counseling. - Treatment Progress During Treatment & Response: Client was engaged in IOP aftercare as ev idenced by client's participation in group discussions and self-report of consistently applying coping skills such as going for regular walks, thought challenging, and deep breathing. Client's DSM-5 scores increased slightly by 18% overall from admission to aftercare to discharge. This may be due to an influx in current stressors such as searching for employment, his mother?s worsening medical status, and loss of supportive services through the IOP program. Client's depressive sx however remained consistent with no increase, irritability reduced by 50% and smoking reduced by 75%. At discharge, client reported more positive thinking patterns, consistent use of healthy coping skills, consistent use of self-care, and better self-compassion skills. Issues Still to be Addressed:: Client can benefit from ongoing outpatient counseling and medication management to promote gains and reinforce healthy coping skills. Client can continue to work on anxiety management, thought challenging, self-compassion, and self-advocacy. Discharge Recommendations/Instructions:: Client is encouraged to follow up with the outpatient counseling options provided by [facility] staff. Client will continue to see his PCP for medication management. Encouraged to attend [facility] support sessions as well. Discharge Handout: Complete Discharge Handout with client on aftercare options and continuity of care.
--- NOTE | 2021-05-05 14:00 | BH.SGPN.GN ---
Behaviors/Verbalizations/Mental Status: [] Client alert and oriented, casually dressed and groomed. Eye contact good. Motor activity appropriate. Speech within normal limits. Affect congruent, mood anxious. Thoughts linear, logical, no signs of hallucinations or delusions. Client Response/Progress/Benefit: [] Client receptive of session as evidenced by remaining attentive, taking notes and providing input throughout discussion. Client reflected on progress and stated she is feeling ?disappointed and disguised? as she had several stressors this past week. Discussed experiencing car troubles as well as issues with her daughter. Explained struggling not to personalize or self-blame after her daughter was fired from work and took her frustrations out on client. Became tearful when sharing; however, was receptive of supportive feedback provided and did well to identify progress in her ability to maintain healthy boundaries rather than allow herself to feel guilty. Shared personal progress as continuing to go to her crafting class despite having several stressors. Client appeared to connect well with group discussion on the importance of self-reflection and the associated mental health benefits. Worked with group to review barriers to consistent personal reflection and strategies for better incorporating self-reflection into daily life. Client plans to practice setting and evaluating small goals regularly in daily life. Expressed this will help to improve ability to see small gains. Client recommended continued participation in Aftercare program to further support ongoing mood stability and maintain gains made. Narrative Note: []
== END 2021-06-04 23:59 ==
LOC: BHOG 08:51
PROVIDERS: PCP Internal Medicine; Referring Provider Psychiatry & Neurology Psychiatry; Visit Provider Psychiatry & Neurology Psychiatry
DX: F33.1 Major depressive disorder, recurrent, moderate (principal); F41.1 Generalized anxiety disorder
CPT/HCPCS: 90853

== ENCOUNTER 2022-03-04 20:36 | Emergency (ER) | payer MEDICAID, SELFPAY ==
[2022-03-04 20:37] VITALS: BP 128/95; PULSE 112; RESP 16; TEMP 36.9; O2SAT 98; BMI 32.6
--- NOTE | 2022-03-04 21:51 | EX.ED.VIS.PS ---
HPI HPI - Psych History of Present Illness Chief Complaint: Mental Health Informant: patient Narrative Narrative: 36-year-old male presents the emergency room stating that he was told to come here by the police. Tells me that he has a Twitter account that has over [phone] followers on it. He states that people were making comments and he made it a Tweet that stated that these people would drive someone to suicide. He states that he instantly regretted making that Tweet. Apparently some followers then contacted the police who did a welfare check on him. Then they reportedly called back and stated that he had sent another text message which he adamantly denies. In an effort to satisfy the police he agreed to come to the hospital. He states he had some suicidal issues about 10 years ago. He then goes into a tangent regarding when he was sent to [facility]. He describes not enjoying that experience and believes that this hospital did a disservice to him by sending him there. I started to explain to him that sometimes when you have no health insurance sometimes that the only place that we can get you accepted into is [facility]. This spiraled into a on needed discussion. He adamantly denies suicidal ideation. He states he does have a counselor. [facility] Medical History Anxiety Arthritis Back pain Bipolar disorder, unspecified Limb weakness Major depressive disorder, recurrent, moderate Panic attacks Panic disorder Home Medications gabapentin 600 mg PO 4X/DAY 11/27/20 [History Last Taken Unknown] cholecalciferol (vitamin D3) 25 mcg PO DAILY 12/15/20 [History Last Taken Unknown] lorazepam 0.5 mg PO TID PRN PRN 12/15/20 [History Last Taken Unknown] duloxetine 30 mg PO DAILY 02/05/21 [History Last Taken Unknown] Allergy/AdvReac Type Severity Reaction Status Date / Time No Known Allergies Allergy Verified 12/27/20 23:59 Family History Other Anxiety Depression Surgical History H/O eye surgery [place] teeth removed Social History Smoking Status: Current every day smoker tobacco type: cigarettes alcohol intake: never ROS ROS ED Constitutional Constitutional ED: Denies chills, fever(s) or weight loss Eyes Eyes: Denies change in vision or diplopia ENT ENT ED: Denies ear pain, rhinorrhea or sore throat Cardiovascular Cardiovascular: Denies chest pain, orthopnea, palpitations or racing heartbeat Respiratory/Chest Respiratory/Chest: Denies cough, dyspnea or orthopnea Gastrointestinal Gastrointestinal: Denies abdominal pain, diarrhea, nausea or vomiting Genitourinary Genitourinary ED: Denies dysuria, hematuria or urinary frequency Musculoskeletal Musculoskeletal: Denies arthralgias or myalgias Integumentary Denies abscess or rash Neurologic Neurologic: Denies headache(s) or weakness Psychiatric Psychiatric: Reports anxiety; Denies depression, suicidal ideation or suicidal thoughts Endocrine Endocrinology: Denies polydipsia, polyphagia or polyuria Allergic/Immunologic Allergic/Immunologic ED: Denies mouth swelling, tongue swelling or urticaria EXAM Physical Exam Const Vital Signs: 03/04/22 20:37 Temperature 98.5 F Temperature Source Temporal Pulse Rate 112 H Respiratory Rate 16 Blood Pressure 128/95 H Blood Pressure Mean 106 Pulse Ox 98 Oxygen Delivery Method Room Air Positive well nourished and well developed General Appearance ED: well developed HEENT Reports normocephalic, head/scalp atraumatic and moist mucous membranes normocephalic and atraumatic Eyes PERRL and EOMs intact bilaterally Neck no lymphadenopathy, supple and no JVD Resp normal respiratory effort and clear to auscultation bilaterally Cardio regular rate, regular rhythm and no murmurs GI normal to inspection, nondistended, normoactive bowel sounds and non-tender Palpation: soft Back/Spine no CVA tenderness and normal ROM Extremity normal to inspection General Extremety ED: Negative for edema General Extremity: Negative for edema Neuro oriented x3 and CN's II-XII intact bilaterally Sensorium / Orientation: alert Motor Exam: strength 5/5 throughout Psych mental status grossly normal Mood & Affect: Negative for depressed or tearful Skin no rashes or lesions noted and no wounds MDM MDM MDM Narrative Medical decision making narrative: Patient's not suicidal. I explained to him that I am not going to debate where psychiatric patients go. He told me that I should not be working with mental health patients. I informed him that he was free to go. He then proceeded to walk to the emergency department videotaping and was escorted out by security Discharge Plan Triage Chief Complaint: Mental Health ED Provider: Nahun Ybarra Dx/Rx/DC Orders Clinical Impression: Anxiety Prescriptions: No Action gabapentin 600 MG tablet 600 mg PO 4X/DAY RF: 0 cholecalciferol (vitamin D3) 25 MCG capsule 25 mcg PO DAILY RF: 0 lorazepam 1 MG tablet 0.5 mg PO TID PRN PRN (Reason: Anxiety) RF: 0 duloxetine 30 MG capsule, delayed rel sprinkle 30 mg PO DAILY RF: 0 Primary Care Provider: Jm Ty Referrals: Jm Ty MD [Primary Care Provider] - As soon as possible Disposition Disposition: Home, Self Care
--- NOTE | 2022-03-04 21:56 | ED.RN ---
PT. WAS ESCORTED OUT BY SECURITY AFTER RECORDING DOCTOR IN [place]. PT. WAS ANGRY AFTER CONVERSATION WITH DOCTOR.
== END 2022-03-04 22:11 | disposition home or self-care (01) ==
LOC: ED 22:07
PROVIDERS: Emergency Provider Emergency Medicine; PCP Internal Medicine; Visit Provider Emergency Medicine
DX: F41.9 Anxiety disorder, unspecified (principal); F31.9 Bipolar disorder, unspecified; M19.90 Unspecified osteoarthritis, unspecified site; Z79.899 Other long term (current) drug therapy; F17.210 Nicotine dependence, cigarettes, uncomplicated
CPT/HCPCS: 99282

== ENCOUNTER 2022-06-08 01:05 | Emergency (ER) | payer MEDICAID, SELFPAY ==
[2022-06-08 01:06] VITALS: BP 150/94; PULSE 87; RESP 16; TEMP 36.1; O2SAT 98; BMI 33.3
--- NOTE | 2022-06-08 01:48 | EX.ED.DYSGE1 ---
HPI History of Present Illness Chief Complaint: Anxiety Narrative Narrative: Patient is a 37-year-old male with past medical history of generalized anxiety disorder with panic attacks. He is being treated by psychiatry with Effexor and Ativan. He states that he is having his Effexor wean from 150 to 75 mg. He reports that he was to take 150 mg of Effexor along with Prozac for 5 days and then drop to 75 mg of Effexor. Patient states he did not understand this and dropped to 75 approximately 2 days ago without any bridging. He also states that he has been taking his Ativan daily and has not had any medication for approximately 24 to 48 hours. He states that this time he has this impending sense of doom or that something bad is going to happen to him but denies any acute stressors. He denies any homicidal or suicidal ideation but with the fact he cannot get his symptoms under control at home presents for evaluation [facility] Medical History Anxiety Arthritis Back pain Bipolar disorder, unspecified Limb weakness Major depressive disorder, recurrent, moderate Panic attacks Panic disorder Home Medications gabapentin 600 mg tablet 400 mg PO 4X/DAY 11/27/20 [History Last Taken Unknown] cholecalciferol (vitamin D3) 25 mcg (1,000 unit) capsule 25 mcg PO DAILY 12/15/20 [History Last Taken Unknown] lorazepam 1 mg tablet 0.5 mg PO TID PRN PRN Anxiety 12/15/20 [History Last Taken Unknown] fluoxetine 20 mg capsule 1 cap PO DAILY 06/08/22 [History Last Taken Unknown] lamotrigine 200 mg tablet 1 tab PO QHS 06/08/22 [History Last Taken Unknown] venlafaxine 150 mg capsule,extended release 24 hr 75 cap PO DAILY 06/08/22 [History Last Taken Unknown] Allergy/AdvReac Type Severity Reaction Status Date / Time No Known Allergies Allergy Verified 06/08/22 01:07 Family History Other Anxiety Depression Surgical History H/O eye surgery [place] teeth removed Social History Smoking Status: Former smoker alcohol intake: never ROS ROS ED Constitutional Constitutional ED: Denies chills or fever(s) ENT ENT ED: Denies sore throat Cardiovascular Cardiovascular: Reports palpitations; Denies chest pain Respiratory/Chest Respiratory/Chest: Denies cough or dyspnea Gastrointestinal Gastrointestinal: Denies abdominal pain, diarrhea, nausea or vomiting Genitourinary Genitourinary ED: Denies dysuria Musculoskeletal Musculoskeletal: Denies myalgias Integumentary Denies rash Neurologic Neurologic: Denies headache(s), paresthesias or weakness Psychiatric Psychiatric: Reports anxiety; Denies suicidal ideation or suicidal thoughts Hematologic/Lymphatic Hematologic/Lymphatic: Denies easy bleeding or easy bruising EXAM Physical Exam Const Vital Signs: 06/08/22 01:06 06/08/22 01:53 Temperature 97 F L Temperature Source Temporal Pulse Rate 87 85 Respiratory Rate 16 18 Blood Pressure 150/94 H 150/90 H Blood Pressure Mean 112 Pulse Ox 98 Oxygen Delivery Method Room Air Positive well nourished and well developed General Appearance ED: well developed HEENT Reports moist mucous membranes Eyes EOMs intact bilaterally Eyes Narrative: Patiently has a chronically dilated right pupil Neck supple Neck Narrative: No nodule or goiter or enlargement of the thyroid gland noted Resp normal respiratory effort and clear to auscultation bilaterally Cardio regular rate and regular rhythm GI normal to inspection, nondistended, normoactive bowel sounds, non-tender and non-distended Auscultation: normoactive bowel sounds Palpation: soft Extremity normal to inspection Extremity Narrative: No asymmetric edema no pitting edema negative Homans' sign bilaterally Neuro oriented x3 and CN's II-XII intact bilaterally Sensorium / Orientation: alert Psych Psych Narrative: Patient has a nervous/anxious affect without homicidal or suicidal ideation Skin no rashes or lesions noted MDM MDM MDM Narrative Medical decision making narrative: Patient presented to the ER mildly hypertensive but otherwise with stable vital. We discussed that his symptoms are most like related to the fact he is dropped his Effexor by half and also has been out of his benzodiazepine. As he does not have any homicidal or suicidal ideation I do not feel there is a need for psychiatric work-up. At this time patient states that he was to be on the bridging dose for 5 days and is already been 2-3 so he will continue his 75 mg of Effexor but as withdrawal from benzodiazepines can be life-threatening I will provide a dose at this time. Patient states that he will get a prescription filled the following day and therefore concerned that he could have progressed to further withdraw is low. Therefore at this time I will provide Ativan but otherwise patient is safe for discharge Discharge Plan Triage Chief Complaint: Anxiety ED Provider: Odell Carolina Dx/Rx/DC Orders Clinical Impression: Generalized anxiety disorder with panic attacks Instructions: ED Anxiety Reaction Prescriptions: No Action gabapentin 600 MG tablet 400 mg PO 4X/DAY cholecalciferol (vitamin D3) 25 MCG capsule 25 mcg PO DAILY lorazepam 1 MG tablet 0.5 mg PO TID PRN PRN (Reason: Anxiety) venlafaxine 150 mg capsule,extended release 24hr 75 cap PO DAILY fluoxetine 20 mg capsule 1 cap PO DAILY lamotrigine 200 mg tablet 1 tab PO QHS Primary Care Provider: mJ Ty Referrals: Jm Ty MD [Primary Care Provider] - Disposition Disposition: Home, Self Care Discharge Date/Time: 06/08/22 01:54
[2022-06-08 01:53] VITALS: BP 150/90; PULSE 85; RESP 18
[2022-06-08] MEDS: LORazepam 1 MG Tablet PO (01:53)
== END 2022-06-08 01:54 | disposition home or self-care (01) ==
PROVIDERS: Emergency Provider Emergency Medicine; PCP Internal Medicine; Visit Provider Emergency Medicine
DX: F41.1 Generalized anxiety disorder (principal); F31.9 Bipolar disorder, unspecified; Z87.891 Personal history of nicotine dependence; Z79.899 Other long term (current) drug therapy; F41.0 Panic disorder [episodic paroxysmal anxiety]
CPT/HCPCS: 99283

== ENCOUNTER 2022-06-19 02:30 | Emergency (ER) | payer MEDICAID, SELFPAY ==
[2022-06-19 02:31] VITALS: BP 149/98; PULSE 88; RESP 16; TEMP 36.1; O2SAT 99; BMI 32.1
--- NOTE | 2022-06-19 03:03 | EDS_ITS ---
HPI HPI - Psych History of Present Illness Chief Complaint: Mental Health Informant: patient Narrative Narrative: Patient now thinks he had a panic attack. Patient has been doing well. He sees a psychiatrist. He is not suicidal or homicidal. He woke up in the middle the night and did not know exactly what was going on. He felt very scared. He states he is not sure if he was hallucinating but he did not hear or see anything. He did not have night paralysis. He was not short of breath or having chest pain. He just did not know what was going on so he called EMS. He is now feels back to normal. He now thinks this was a panic attack but just did not recognize it at first. He is asymptomatic and back to baseline. PFSH PFS Medical History Anxiety Arthritis Back pain Bipolar disorder, unspecified Limb weakness Major depressive disorder, recurrent, moderate Panic attacks Panic disorder Home Medications gabapentin 600 mg tablet 400 mg PO 4X/DAY 11/27/20 [History Last Taken Unknown] cholecalciferol (vitamin D3) 25 mcg (1,000 unit) capsule 25 mcg PO DAILY 12/15/20 [History Last Taken Unknown] lorazepam 1 mg tablet 0.5 mg PO TID PRN PRN Anxiety 12/15/20 [History Last Taken Unknown] fluoxetine 20 mg capsule 1 cap PO DAILY 06/08/22 [History Last Taken Unknown] lamotrigine 200 mg tablet 1 tab PO QHS 06/08/22 [History Last Taken Unknown] venlafaxine 150 mg capsule,extended release 24 hr 75 cap PO DAILY 06/08/22 [History Last Taken Unknown] Allergy/AdvReac Type Severity Reaction Status Date / Time No Known Allergies Allergy Verified 06/08/22 01:07 Family History Other Anxiety Depression Surgical History H/O eye surgery [place] teeth removed Social History Smoking Status: Former smoker alcohol intake: never ROS ROS ED Constitutional Constitutional ED: Denies fever(s) Eyes Eyes: Denies blurry vision ENT ENT ED: Denies rhinorrhea or sore throat Cardiovascular Cardiovascular: Denies chest pain Respiratory/Chest Respiratory/Chest: Denies cough Gastrointestinal Gastrointestinal: Denies vomiting Musculoskeletal Musculoskeletal: Denies arthralgias or myalgias Neurologic Neurologic: Denies headache(s), paresthesias or weakness Psychiatric Psychiatric: Reports anxiety; Denies suicidal ideation or suicidal thoughts Endocrine Endocrinology: Denies polydipsia or polyuria Hematologic/Lymphatic Hematologic/Lymphatic: Denies easy bleeding or easy bruising Allergic/Immunologic Allergic/Immunologic ED: Denies urticaria EXAM Physical Exam Const Vital Signs: 06/19/22 02:31 Temperature 97 F L Temperature Source Temporal Pulse Rate 88 Respiratory Rate 16 Blood Pressure 149/98 H Blood Pressure Mean 115 Pulse Ox 99 Oxygen Delivery Method Room Air Positive well nourished and well developed Constitutional Narrative: Patient is sitting quietly in bed now. He is very cooperative. General Appearance ED: well developed and NAD HEENT atraumatic Eyes Eyes Narrative: Disconjugate gaze chronic from prior surgery. Neck supple Resp normal respiratory effort and clear to auscultation bilaterally Cardio no murmurs Rate: regular rate Rhythm: regular rhythm GI non-tender and non-distended Palpation: soft Extremity normal to inspection General Extremety ED: Negative for edema or tenderness General Extremity: Negative for edema Neuro oriented x3 Psych mental status grossly normal Psych Narrative: Mildly flat affect but otherwise normal. Skin Lesions: no lesions Rashes: no rashes MDM MDM MDM Narrative Medical decision making narrative: It does sound like the patient likely had a panic attack. It is completely r esolved now and he feels back to normal. I do not think we need to do any work- up or therapy at this time. Discharge Plan Triage Chief Complaint: Mental Health ED Provider: Juan Harley Dx/Rx/DC Orders Clinical Impression: Panic attack Instructions: ED Panic Attack Prescriptions: No Action gabapentin 600 MG tablet 400 mg PO 4X/DAY cholecalciferol (vitamin D3) 25 MCG capsule 25 mcg PO DAILY lorazepam 1 MG tablet 0.5 mg PO TID PRN PRN (Reason: Anxiety) venlafaxine 150 mg capsule,extended release 24hr 75 cap PO DAILY fluoxetine 20 mg capsule 1 cap PO DAILY lamotrigine 200 mg tablet 1 tab PO QHS Primary Care Provider: Jm Ty Referrals: Jm Ty MD [Primary Care Provider] - As Needed Disposition Disposition: Home, Self Care
[2022-06-19 03:23] VITALS: BP 124/74; PULSE 72; RESP 15; O2SAT 98
== END 2022-06-19 03:24 | disposition home or self-care (01) ==
PROVIDERS: Emergency Provider Emergency Medicine; PCP Internal Medicine; Visit Provider Emergency Medicine
DX: F41.0 Panic disorder [episodic paroxysmal anxiety] (principal); F31.9 Bipolar disorder, unspecified; Z87.891 Personal history of nicotine dependence; M19.90 Unspecified osteoarthritis, unspecified site; Z79.899 Other long term (current) drug therapy
CPT/HCPCS: 99284

== ENCOUNTER 2022-06-23 20:22 | Emergency (ER) | payer MEDICAID, SELFPAY ==
[2022-06-23 20:23] VITALS: BP 137/96; PULSE 107; RESP 16; TEMP 37.1; O2SAT 98; BMI 31.7
--- NOTE | 2022-06-23 22:56 | EDS_ITS ---
HPI History of Present Illness Chief Complaint: General Illness Narrative Narrative: 37-year-old male with history of bipolar disorder and panic disorder presenting with a sensation of burning over his body which has been going on since September when he was put on Lamictal. He states this is intermittent. He states tonight was more severe. He called EMS to come pick him up. Patient states that he has been telling a psychiatrist for months that he does not like this medication and he wants off of it. They have not changed his medications. He states that if he goes off of it he is likely to become more aggressive and have more anxiety. He is not homicidal or suicidal. He is very tearful. He has a small superficial rash on the right arm and is not sure where it came from. It does not itch and it does not hurt. He states he has not done any outdoor activities where he would have been exposed to poison mark. It is on his right forearm. [facility] Medical History Anxiety Arthritis Back pain Bipolar disorder, unspecified Limb weakness Major depressive disorder, recurrent, moderate Panic attacks Panic disorder Home Medications gabapentin 600 mg tablet 400 mg PO 4X/DAY 11/27/20 [History Last Taken Unknown] cholecalciferol (vitamin D3) 25 mcg (1,000 unit) capsule 25 mcg PO DAILY 08/25 [History Last Taken Unknown] lorazepam 1 mg tablet 0.5 mg PO TID PRN PRN Anxiety 12/15/20 [History Last Taken Unknown] fluoxetine 20 mg capsule 1 cap PO DAILY 06/08/22 [History Last Taken Unknown] lamotrigine 200 mg tablet 1 tab PO QHS 06/08/22 [History Last Taken Unknown] venlafaxine 150 mg capsule,extended release 24 hr 75 cap PO DAILY 06/08/22 [History Last Taken Unknown] Allergy/AdvReac Type Severity Reaction Status Date / Time No Known Allergies Allergy Verified 06/23/22 20:27 Family History Other Anxiety Depression Surgical History H/O eye surgery [place] teeth removed Social History Smoking Status: Former smoker alcohol intake: never ROS ROS ED Constitutional Constitutional ED: Denies chills or fever(s) Eyes Eyes: Denies change in vision or diplopia ENT ENT ED: Denies rhinorrhea or sore throat Cardiovascular Cardiovascular: Denies chest pain or palpitations Respiratory/Chest Respiratory/Chest: Denies cough or dyspnea Gastrointestinal Gastrointestinal: Denies abdominal pain or constipation Genitourinary Genitourinary ED: Denies dysuria or hematuria Musculoskeletal Musculoskeletal: Denies arthralgias or back pain Integumentary Denies abscess or Abrasions Neurologic Neurologic: Denies headache(s) or paresthesias Psychiatric Psychiatric: Reports anxiety; Denies depression, suicidal ideation or suicidal thoughts EXAM Physical Exam Const Vital Signs: 06/23/22 20:23 06/23/22 22:11 06/24/22 00:23 Temperature 98.8 F Temperature Source Temporal Pulse Rate 107 H 79 Respiratory Rate 16 18 Respiratory Effort Normal Non-Labored Respiratory Pattern Normal Blood Pressure 137/96 H 139/74 H Blood Pressure Mean 109 95 Pulse Ox 98 97 Oxygen Delivery Method Room Air Room Air Positive well nourished General Appearance ED: NAD HEENT Reports moist mucous membranes and dry mucous membranes Negative for trauma Mouth ED: Yes dry mucous membranes Mouth: dry mucous membranes Eyes PERRL and EOMs intact bilaterally Chest Wall inspection of chest normal and palpation of chest normal Resp normal respiratory effort and clear to auscultation bilaterally Auscultation: Negative for rales, rhonchi or wheezes Cardio regular rate and regular rhythm Rate: tachycardic GI normal to inspection, nondistended, normoactive bowel sounds Extremity normal to inspection Neuro oriented x3 and CN's II-XII intact bilaterally Sensorium / Orientation: alert Psych Mood & Affect: anxious and tearful Skin Skin Narrative: Superficial rash on the right volar forearm. This does not appear to be cellulitic or consistent with poison mark dermatitis. Is not tender to palpation. There is no crepitance. There are some excoriations here. MDM MDM MDM Narrative Medical decision making narrative: Patient presenting because he wants his medication changes. I did certified personal finance counselor him that I do not necessarily adjust medications. He states that his skin is burning intermittently and this is a chronic issue it was worse tonight. I did obtain blood work and his CBC and BMP are normal. EtOH negative. Patient's drug screen did come back positive for opioids which he is not prescribed. He also has a positive drug screen for PCP which apparently can be positive if the patient takes venlafaxine or lamotrigine which he is on. Its unclear if he has taken the drug. He denies this. Patient counseled to follow-up with a psychiatrist for medication changes. Impression: 1. Medication side effect 2. Opioid abuse Lab Data Attestation: I reviewed the patient's lab results. Labs: Laboratory Results - last 24 hr 06/23/22 06/23/22 06/23/22 23:00 23:07 23:07 WBC 7.2 RBC 4.89 Hgb 15.3 Hct 45.5 MCV 93.0 MCH 31.3 MCHC 33.6 RDW Std Deviation 45.4 H RDW Coeff of Aristeo 13.3 Plt Count 229 MPV 10.5 Immature Gran % (Auto) 0.700 Neut % (Auto) 65.0 Lymph % (Auto) 28.0 [place] % (Auto) 4.6 Eos % (Auto) 1.1 Baso % (Auto) 0.6 Absolute Neuts (auto) 4.7 Absolute Lymphs (auto) 2.01 Nucleated RBC % 0 Sodium 139 Potassium 3.7 Chloride 110 H Carbon Dioxide 28.0 Anion Gap 1 L BUN 4 L Creatinine 1.03 Estim Creat Clear Calc 106.73 Est GFR (MDRD) Af Amer 104 Est GFR (MDRD) Non-Af 86 BUN/Creatinine Ratio 3.9 L Glucose 101 Calcium 8.8 Urine Opiates Screen POSITIVE H Urine Methadone Screen NEGATIVE Ur Barbiturates Screen NEGATIVE Ur Phencyclidine Scrn POSITIVE H Ur Amphetamines Screen NEGATIVE MDMA (Ecstasy) Screen NEGATIVE U Benzodiazepines Scrn NEGATIVE Urine Cocaine Screen NEGATIVE U Cannabinoids Screen NEGATIVE Ur Drug Screen Comment Ethyl Alcohol 06/23/22 23:07 WBC RBC Hgb Hct MCV MCH MCHC RDW Std Deviation RDW Coeff of Aristeo Plt Count MPV Immature Gran % (Auto) Neut % (Auto) Lymph % (Auto) [place] % (Auto) Eos % (Auto) Baso % (Auto) Absolute Neuts (auto) Absolute Lymphs (auto) Nucleated RBC % Sodium Potassium Chloride Carbon Dioxide Anion Gap BUN Creatinine Estim Creat Clear Calc Est GFR (MDRD) Af Amer Est GFR (MDRD) Non-Af BUN/Creatinine Ratio Glucose Calcium Urine Opiates Screen Urine Methadone Screen Ur Barbiturates Screen Ur Phencyclidine Scrn Ur Amphetamines Screen MDMA (Ecstasy) Screen U Benzodiazepines Scrn Urine Cocaine Screen U Cannabinoids Screen Ur Drug Screen Comment Ethyl Alcohol < 3.0 Discharge Plan Triage Chief Complaint: General Illness ED Provider: Conner Lara Dx/Rx/DC Orders Prescriptions: No Action gabapentin 600 MG tablet 400 mg PO 4X/DAY cholecalciferol (vitamin D3) 25 MCG capsule 25 mcg PO DAILY lorazepam 1 MG tablet 0.5 mg PO TID PRN PRN (Reason: Anxiety) venlafaxine 150 mg capsule,extended release 24hr 75 cap PO DAILY fluoxetine 20 mg capsule 1 cap PO DAILY lamotrigine 200 mg tablet 1 tab PO QHS Primary Care Provider: Jm Ty Referrals: Jm Ty MD [Primary Care Provider] -
[2022-06-23 23:30] LABS: Alcohol, Blood (Medical)-Serum < 3.0 mg/dL
[2022-06-23 23:32] LABS: Absolute Lymphocyte Count 2.01 X10^3/uL (0.83-4.51); Absolute Neutrophil Count 4.7 X10^3/uL (2.0-7.7); Basophil# 0.04 X10^3/uL; Basophil% 0.6 % (0-1); Eosinophil# 0.08 X10^3/uL; Eosinophils% 1.1 % (0-5); Hematocrit 45.5 % (40-54); Hemoglobin 15.3 g/dL (13.0-16.5); Lymphocyte # 2.01 X10^3/ul (0.83-4.51); Mean Corp Hgb Conc 33.6 g/dL (32-36); Mean Corpuscular Hgb 31.3 pg (27.0-32.0); Mean Platelet Vol. 10.5 fl (6.2-12.0); Monocyte# 0.33 X10^3/uL; Monocyte% 4.6 % (0-10); NRBC Flagged by Analyzer 0 % (0-5); Neutrophil # 4.68 X10^3/uL (2.7-7.7); Platelet Count 229 K/mm3 (150-450); RBC Distribution Width CV 13.3 % (11.6-14.6); RBC Distribution Width SD 45.4 fl (35.1-43.9); Red Blood Count 4.89 M/mm3 (4.6-6.2); White Blood Count 7.2 K/mm3 (4.4-11.0)
[2022-06-23 23:35] LABS: Anion Gap 1 (5-15); BUN 4 mg/dL (7-18); BUN/Creat Ratio 3.9 RATIO (10-20); Calcium,Total 8.8 mg/dL (8.5-10.1); Chloride 110 mmol/L (98-107); Creatinine, Serum 1.03 mg/dL (0.70-1.30); EST Glomerular Filtration Rate 86 mL/min (>60); Est Glom Filt Rate - Afr Amer 104 mL/min (>60); Estimated Creatinine Clearance 106.73 ml/min; Glucose 101 mg/dL (74-106); Potassium 3.7 mmol/L (3.5-5.1); Sodium Level 139 mmol/L (136-145)
[2022-06-23 23:41] LABS: Amphetamine Urine VISTA NEGATIVE (<1000 ng/mL); Barbiturate Urine VISTA NEGATIVE (< 200 ng/mL); Benzodiazepine Urine VISTA NEGATIVE (< 200 ng/mL); Cocaine Urine VISTA NEGATIVE (< 300 ng/mL); Ecstacy Urine VISTA NEGATIVE (< 500 ng/mL); Methadone Urine VISTA NEGATIVE (< 300 ng/mL); PCP Urine VISTA POSITIVE (< 25 ng/mL); THC Urine VISTA NEGATIVE (< 50 ng/mL); Vista UDS pH Range 5
[2022-06-24 00:23] VITALS: BP 139/74; PULSE 79; RESP 18; O2SAT 97
== END 2022-06-24 04:29 | disposition home or self-care (01) ==
PROVIDERS: Emergency Provider Student in an Organized Health Care Education/Training Program; PCP Internal Medicine; Visit Provider Student in an Organized Health Care Education/Training Program
DX: L27.1 Localized skin eruption due to drugs and medicaments taken internally (principal); F11.10 Opioid abuse, uncomplicated; F31.9 Bipolar disorder, unspecified; Z87.891 Personal history of nicotine dependence; F41.0 Panic disorder [episodic paroxysmal anxiety]; Z79.899 Other long term (current) drug therapy; T42.6X5A Adverse effect of other antiepileptic and sedative-hypnotic drugs, initial encounter; R20.8 Other disturbances of skin sensation
CPT/HCPCS: 80048; 80307; 82077; 85025; 87811; 99284

== ENCOUNTER 2022-08-09 04:56 | Emergency (ER) | payer MEDICAID, SELFPAY ==
[2022-08-09 04:58] VITALS: BP 152/91; PULSE 103; RESP 20; TEMP 36.6; O2SAT 100; BMI 32.8
--- NOTE | 2022-08-09 05:09 | RAD_ITS ---
INDICATION: dyspnea EXAMINATION/TECHNIQUE: X-RAY - XR Chest 2 Views COMPARISON: December 21, 2020. FINDINGS: LINES/DEVICES: None. LUNGS: No consolidation or edema. Trace costophrenic angle effusions. No pneumothorax. MEDIASTINUM AND CARDIOVASCULAR STRUCTURES: Cardiac silhouette not enlarged. BONES AND SOFT TISSUES: Unremarkable. RAD/Chest PA and Lateral IMPRESSION: No radiographic evidence of consolidative airspace disease or florid edema. Trace costophrenic angles effusions on lateral view. Electronically Signed: Cody Hood MD at 6:08 EDT ,
--- NOTE | 2022-08-09 05:11 | EKG12_ITS ---
Test Reason : DYSRHYTHMIA Blood Pressure : / mmHG Vent. Rate : 109 BPM Atrial Rate : 109 BPM P-R Int : 144 ms QRS Dur : 086 ms QT Int : 334 ms P-R-T Axes : 058 042 058 degrees QTc Int : 449 ms Sinus tachycardia Otherwise normal ECG Confirmed by JASSON RODAS, LACHELLE ([id number]), managing editor SCAR STEIN ([id number]) on 08/10/2022 8:05:45 AM Referred By: BB Confirmed By:LACHELLE SPAULDING MD
--- NOTE | 2022-08-09 05:12 | EDS_ITS ---
HPI History of Present Illness Chief Complaint: Other, Pain/Inj Detail of Chief Complaint: Discomfort all over Informant: patient and EMS Onset/Context/Timing Onset: Hours (Several) Context: Gradual Onset Timing: Continuous Quality: Like being squeezed Location: All over Current Severity: Severe Maximum Severity: Severe Worsened by: Nothing Relieved by: Nothing Associated Symptoms Associated Symptoms: May be a little short of breath Narrative Narrative: Patient presents via EMS around 5am saying he is having a hard time describing the symptoms but he feels like he is being squeezed all over. He feels like it is mostly in his extremities, possibly his neck and back but he has chronic pain in his neck and back so it is hard to tell. He denies any chest or abdominal pain/symptoms. States he had a bout of diarrhea this morning but nothing major and no blood. No vomiting or nausea. He states he feels like it is the worst episode of dehydration ever, but this past day he had drank fluids and has had no GI illness recently. When asked if this feels like a panic attack, he states no this is something different but he does feel anxious. When asked if he has had medication changes lately, since he is on mental health medications, he states he stopped Lamictal several weeks ago and has been trying to wean off of Ativan and try not to take it but he ends up taking it every day, and he states his doctors been trying to get him off of it for over a year. [facility] Medical History Anxiety Arthritis Back pain Bipolar disorder, unspecified Limb weakness Major depressive disorder, recurrent, moderate Panic attacks Panic disorder Home Medications gabapentin 600 mg tablet 400 mg PO 4X/DAY 11/27/20 [History Last Taken Unknown] cholecalciferol (vitamin D3) 25 mcg (1,000 unit) capsule 25 mcg PO DAILY 12/15/20 [History Last Taken Unknown] lorazepam 1 mg tablet 0.5 mg PO TID PRN PRN Anxiety 12/15/20 [History Last Taken Unknown] fluoxetine 20 mg capsule 1 cap PO DAILY 06/08/22 [History Last Taken Unknown] lamotrigine 200 mg tablet 1 tab PO QHS 06/08/22 [History Last Taken Unknown] venlafaxine 150 mg capsule,extended release 24 hr 75 cap PO DAILY 06/08/22 [History Last Taken Unknown] Allergy/AdvReac Type Severity Reaction Status Date / Time No Known Allergies Allergy Verified 06/23/22 20:27 Family History Other Anxiety Depression Surgical History H/O eye surgery [place] teeth removed Social History Smoking Status: Former smoker alcohol intake: never ROS ROS ED Constitutional Constitutional ED: Reports as per HPI and malaise; Denies chills or fever(s) Eyes Eyes: Denies change in vision or diplopia ENT ENT ED: Denies rhinorrhea or sore throat Cardiovascular Cardiovascular: Denies chest pain or palpitations Respiratory/Chest Respiratory/Chest: Denies cough or dyspnea Gastrointestinal Gastrointestinal: Denies abdominal pain, diarrhea, nausea or vomiting Genitourinary Genitourinary ED: Denies dysuria or hematuria Musculoskeletal Musculoskeletal: Reports as per HPI, extremity pain, myalgias and other Details: Denies muscle stiffness ; Denies back pain, muscle spasms or neck pain Integumentary Denies abscess or rash Neurologic Neurologic: Denies headache(s), paresthesias or weakness Psychiatric Psychiatric: Reports anxiety; Denies suicidal thoughts EXAM Physical Exam Const Vital Signs: 08/09/22 04:58 Temperature 97.8 F Temperature Source Oral Pulse Rate 103 H Respiratory Rate 20 H Blood Pressure 152/91 H Blood Pressure Mean 111 Pulse Ox 100 Oxygen Delivery Method Room Air Positive well nourished and well developed Constitutional Narrative: Anxious. Tearful at times. General Appearance ED: well developed and NAD HEENT Reports moist mucous membranes normocephalic and atraumatic Eyes PERRL and EOMs intact bilaterally Eyes Narrative: Disconjugate gaze, right pupil is nonreactive and irregular Neck full ROM, no lymphadenopathy and supple Chest Wall inspection of chest normal and palpation of chest normal Resp normal respiratory effort and clear to auscultation bilaterally Cardio regular rate, regular rhythm and no murmurs Rate: tachycardic GI normal to inspection, nondistended, normoactive bowel sounds, non-tender and non-distended Auscultation: normoactive bowel sounds Palpation: soft Back/Spine no CVA tenderness General Back: other FROM Extremity normal to inspection Extremity Narrative: No stiffness. Full range of motion throughout all 4 extremities. General Extremety ED: Negative for edema, pulses abnormal or tenderness General Extremity: Negative for edema or pulses abnormal Neuro oriented x3, CN's II-XII intact bilaterally and no sensory deficits noted Neuro Narrative: Normal reflexes. No clonus. Symmetric throughout all 4 extremities. No rigidity. Sensorium / Orientation: awake and alert Motor Exam: strength 5/5 throughout Psych Mood & Affect: anxious Skin no rashes or lesions noted and no wounds MDM MDM MDM Narrative Medical decision making narrative: Wide differential here for these nonspecific symptoms. Could be myalgias related to possible COVID, rhabdomyolysis for unknown reasons, muscle spasms/fasciculations due to electrolyte disorder, serotonin syndrome is less likely given his normal reflexes and neuroleptic malignant syndrome also thought to be less likely given the list of medications he takes. He is not febrile to suggest malignant hyperthermia. All of his work-up was negative, it is notable that his CPK was 421, which is a little elevated but does not qualify for rhabdomyolysis, and he has no myoglobinuria. Chest x-ray 2 views of my interpretation normal. EKG normal. He is ambulatory and feeling a little better after IV fluids, at this time I think it is reasonable to give him a dose of Toradol, a little Ativan, and allow him to go home. He states he did feel this way he thinks, when he was on Lamictal at 1 point which is why he discontinued it. Lab Data Attestation: I reviewed the patient's lab results. Labs: Laboratory Results - last 24 hr 08/09/22 08/09/22 08/09/22 05:20 05:20 05:20 WBC 9.2 RBC 4.65 Hgb 14.4 Hct 43.9 MCV 94.4 H MCH 31.0 MCHC 32.8 RDW Std Deviation 45.5 H RDW Coeff of Aristeo 13.2 Plt Count 213 MPV 10.8 Immature Gran % (Auto) 0.900 Neut % (Auto) 67.1 Lymph % (Auto) 21.5 [place] % (Auto) 7.3 Eos % (Auto) 2.8 Baso % (Auto) 0.4 Absolute Neuts (auto) 6.2 Absolute Lymphs (auto) 1.99 Nucleated RBC % 0 Sodium 137 Potassium 3.7 Chloride 101 Carbon Dioxide 31.0 Anion Gap 5 BUN 9 Creatinine 1.05 Estim Creat Clear Calc 104.70 Est GFR (MDRD) Af Amer 102 Est GFR (MDRD) Non-Af 84 BUN/Creatinine Ratio 8.6 L Glucose 109 H Calcium 9.1 Total Creatine Kinase 421 H Troponin I High Sens 5 Urine Color Yellow Urine Clarity Clear Urine pH 7.0 Ur Specific [place] 1.005 Urine Protein Negative Urine Glucose (UA) Normal Urine Ketones Negative Urine Occult Blood Negative Urine Nitrite Negative Urine Bilirubin Negative Urine Urobilinogen Normal Ur Leukocyte Esterase Negative Rhythm Strip Rhythm Strip: Sinus Tach Rate: 109 Ectopy: None EKG Initial EKG: Attestation: I personally reviewed and interpreted this EKG as follows: Interpretation: No Acute Injury Pattern and Sinus Tachycardia (otherwise, nml) Discharge Plan Triage Chief Complaint: Other, Pain/Inj Other Complaint: Diarrhea ED Provider: Jhoan Sharma Dx/Rx/DC Orders Clinical Impression: Diffuse pain, Dyspnea, Anxiety Instructions: ED Pain, Acute, Uncertain Cause Prescriptions: No Action gabapentin 600 MG tablet 400 mg PO 4X/DAY cholecalciferol (vitamin D3) 25 MCG capsule 25 mcg PO DAILY lorazepam 1 MG tablet 0.5 mg PO TID PRN PRN (Reason: Anxiety) venlafaxine 150 mg capsule,extended release 24hr 75 cap PO DAILY fluoxetine 20 mg capsule 1 cap PO DAILY lamotrigine 200 mg tablet 1 tab PO QHS Primary Care Provider: Jm Ty Referrals: Jm Ty MD [Primary Care Provider] - 3-5 Days if not improving Disposition Disposition: Home, Self Care
[2022-08-09 05:32] LABS: Bacteria 0 SEEN /hpf (None Seen); Red Blood Cells-Urine 0 SEEN /hpf (0-5); Squamous Epithelial Cells - UA 0 SEEN /hpf (0-5); White Blood Cells 0 SEEN /hpf (0-5)
[2022-08-09] MEDS: 0.9% Normal Saline 1,000 ML 999 ML IV (05:32)
[2022-08-09 05:34] LABS: Absolute Lymphocyte Count 1.99 X10^3/uL (0.83-4.51); Absolute Neutrophil Count 6.2 X10^3/uL (2.0-7.7); Basophil# 0.04 X10^3/uL; Basophil% 0.4 % (0-1); Eosinophil# 0.26 X10^3/uL; Eosinophils% 2.8 % (0-5); Hematocrit 43.9 % (40-54); Hemoglobin 14.4 g/dL (13.0-16.5); Lymphocyte # 1.99 X10^3/ul (0.83-4.51); Lymphocyte % 21.5 % (19-41); Mean Corp Hgb Conc 32.8 g/dL (32-36); Mean Corpuscular Volume 94.4 fL (80-94); Mean Platelet Vol. 10.8 fl (6.2-12.0); Monocyte# 0.67 X10^3/uL; Monocyte% 7.3 % (0-10); NRBC Flagged by Analyzer 0 % (0-5); Neutrophil % 67.1 % (47-70); Platelet Count 213 K/mm3 (150-450); RBC Distribution Width CV 13.2 % (11.6-14.6); RBC Distribution Width SD 45.5 fl (35.1-43.9); Red Blood Count 4.65 M/mm3 (4.6-6.2); White Blood Count 9.2 K/mm3 (4.4-11.0)
[2022-08-09 05:43] LABS: Color, Urine Yellow (Yellow); Glucose, Dipstick Normal (Normal); Ketone-Dipstick Negative (Negative); Leukocyte Esterase-Dipstick Negative /ul (Negative); Nitrite-Dipstick Negative (Negative); Occult Blood-Urine Negative /ul (Negative); Protein-Dipstick Negative (Negative); Specific Gravity, Urine 1.005 (1.002-1.030); Urine Bilirubin Dipstick Negative (Negative); Urine Clarity Clear (Clear); Urine Urobilinogen Normal (Normal)
[2022-08-09 05:55] LABS: Anion Gap 5 (5-15); BUN 9 mg/dL (7-18); BUN/Creat Ratio 8.6 RATIO (10-20); CPK Total, Creatine Kinase 421 U/L (39-308); Calcium,Total 9.1 mg/dL (8.5-10.1); Chloride 101 mmol/L (98-107); Creatinine, Serum 1.05 mg/dL (0.70-1.30); EST Glomerular Filtration Rate 84 mL/min (>60); Est Glom Filt Rate - Afr Amer 102 mL/min (>60); Glucose 109 mg/dL (74-106); Potassium 3.7 mmol/L (3.5-5.1); Sodium Level 137 mmol/L (136-145); Troponin-I HS 5 pg/mL (3.0-78.0)
[2022-08-09 06:04] LABS: Mucous, Urine RARE /hpf (<or=2+)
[2022-08-09 06:57] VITALS: BP 148/88; PULSE 89; RESP 18
== END 2022-08-09 07:11 | disposition home or self-care (01) ==
LOC: ED 06:11
PROVIDERS: Emergency Provider Emergency Medicine; PCP Internal Medicine; Visit Provider Emergency Medicine
DX: G89.29 Other chronic pain (principal); F31.9 Bipolar disorder, unspecified; F41.9 Anxiety disorder, unspecified; R19.7 Diarrhea, unspecified; Z87.891 Personal history of nicotine dependence; G21.0 Malignant neuroleptic syndrome; R06.00 Dyspnea, unspecified
CPT/HCPCS: 71046; 80048; 81001; 82550; 84484; 85025; 87811; 93005; 96361; 96374; 96375; 99285; J7030; A4216

== ENCOUNTER 2022-09-02 16:58 | Emergency (ER) | payer MEDICAID, SELFPAY ==
[2022-09-02 16:59] VITALS: BP 120/98; PULSE 120; RESP 18; TEMP 35.8; O2SAT 97; BMI 33.6
[2022-09-02 18:07] VITALS: PULSE 94
--- NOTE | 2022-09-02 18:14 | CT_ITS ---
STUDY: CT Spine Cervical W/O Contrast Injection 09/02/2022 7:14 PM REASON FOR EXAM: Male, 37 years old. NECK PAIN pain HISTORY: NECK PAIN pain TECHNIQUE: High resolution transaxial imaging was performed without intravenous administration of contrast material. Sagittal and coronal images were reconstructed. Individualized dose optimization techniques were used for this CT. COMPARISON: None FINDINGS: Normal craniovertebral junction. Normal anterior atlantoaxial articulation. Normal odontoid process. Normal cervical lordosis. Normal vertebral bodies and posterior osseous elements. C2-3: Normal endplates. Normal disc height and morphology. Normal central canal and intervertebral neuroforamina. C3-4: Normal endplates. Normal disc height and morphology. Normal central canal and intervertebral neuroforamina. C4-5: Normal endplates. Normal disc height and morphology. Normal central canal and intervertebral neuroforamina. C5-6: Loss of intervertebral disc height. There is endplate spondylosis of the vertebral body. Normal central canal and intervertebral neuroforamina. There is bilateral facet arthropathy. C6-7: Loss of intervertebral disc height. There is endplate spondylosis of the vertebral body. Narrowing of the bilateral intervertebral neuroforamina. There is bilateral facet arthropathy. C7-T1: Normal endplates. Normal disc height and morphology. Normal central canal and intervertebral neuroforamina. Normal visualized soft tissue structures. CT/Spine Cervical without Contras IMPRESSION: (NOT LISTED IN ORDER OF SIGNIFICANCE) Multilevel degenerative changes, as described above. Electronically Signed: Thong Reina MD at 19:17 EDT ,
--- NOTE | 2022-09-02 18:15 | CT_ITS ---
STUDY: CT BRAIN WITHOUT CONTRAST REASON FOR EXAM: Male, 37 years old. Change in Mental Status TECHNIQUE: Transaxial CT imaging of the brain was performed without administration of intravenous contrast material. Individualized dose optimization techniques were used for this CT. COMPARISON: 18 FINDINGS: Normal calvarium. Normal soft tissues. Normal size ventricles and extra-axial spaces for the patient''s age. Normal white matter tracts of the cerebral hemispheres. Normal basal ganglia and thalami. Normal brainstem. Normal cerebellum. There is no intracranial hemorrhage. There are no findings of an acute ischemic infarction. Normal visualized paranasal sinuses. ASPECTS 10 CT/Brain/Head without Contrast IMPRESSION: There are no acute intracranial findings. Electronically Signed: Thong Reina MD at 19:15 EDT ,
--- NOTE | 2022-09-02 18:15 | EKG12_ITS ---
Test Reason : Blood Pressure : / mmHG Vent. Rate : 100 BPM Atrial Rate : 100 BPM P-R Int : 142 ms QRS Dur : 078 ms QT Int : 356 ms P-R-T Axes : 059 044 060 degrees QTc Int : 459 ms Normal sinus rhythm Normal ECG Confirmed by VÍCTOR RODAS, LILIANA ([id number]), editor news SCAR STEIN ([id number]) on 09/04/2022 9:20:00 AM Referred By: Confirmed By:LILIANA RENEE MD
--- NOTE | 2022-09-02 18:16 | EDS_ITS ---
HPI HPI - Psych History of Present Illness Chief Complaint: Mental Health Informant: patient Narrative Narrative: 37-year-old male with a history of KATIE and depression presenting to the emergency department with a chief complaint of headache neck pain and anxiety. He states that he has been having right-sided neck pain that comes up and wraps around his head. This is been causing him a lot of anxiety and he is feeling very distressed. He is not exactly sure why. He notes decrease in his eating and sleep but he does not feel that he needs to be hospitalized. He denies any suicidal or homicidal ideation. He states that he has not had any recent medication changes but he is only currently taking gabapentin as well as Ativan. He missed his psychiatric appointment on Sunday. [facility] Medical History Anxiety Arthritis Back pain Bipolar disorder, unspecified Limb weakness Major depressive disorder, recurrent, moderate Panic attacks Panic disorder Home Medications gabapentin 600 mg tablet 400 mg PO 4X/DAY 11/27/20 [History Last Taken Unknown] cholecalciferol (vitamin D3) 25 mcg (1,000 unit) capsule 25 mcg PO DAILY 12/15/20 [History Last Taken Unknown] lorazepam 1 mg tablet 0.5 mg PO PRN PRN Anxiety 12/15/20 [History Last Taken Unknown] fluoxetine 20 mg capsule 1 cap PO DAILY 06/08/22 [History Last Taken Unknown] lamotrigine 200 mg tablet 1 tab PO QHS 06/08/22 [History Last Taken Unknown] venlafaxine 150 mg capsule,extended release 24 hr 75 cap PO DAILY 06/08/22 [History Last Taken Unknown] Allergy/AdvReac Type Severity Reaction Status Date / Time No Known Allergies Allergy Verified 09/02/22 16:59 Family History Other Anxiety Depression Surgical History H/O eye surgery [place] teeth removed Social History Smoking Status: Former smoker alcohol intake: never ROS ROS ED Constitutional Constitutional ED: Denies chills or weight loss Eyes Eyes: Denies change in vision or diplopia ENT ENT ED: Denies ear pain, rhinorrhea or sore throat Cardiovascular Cardiovascular: Denies chest pain, orthopnea, palpitations or racing heartbeat Respiratory/Chest Respiratory/Chest: Denies cough, dyspnea or orthopnea Gastrointestinal Gastrointestinal: Denies abdominal pain, diarrhea, nausea or vomiting Genitourinary Genitourinary ED: Denies dysuria, hematuria or urinary frequency Musculoskeletal Musculoskeletal: Reports neck pain; Denies arthralgias or myalgias Integumentary Denies abscess or rash Neurologic Neurologic: Reports headache(s); Denies weakness Psychiatric Psychiatric: Denies anxiety, depression, suicidal ideation or suicidal thoughts Endocrine Endocrinology: Denies polydipsia, polyphagia or polyuria Allergic/Immunologic Allergic/Immunologic ED: Denies mouth swelling, tongue swelling or urticaria EXAM Physical Exam Const Vital Signs: 09/02/22 16:59 09/02/22 18:07 Temperature 96.5 F L Temperature Source Temporal Pulse Rate 120 H 94 Respiratory Rate 18 Blood Pressure 120/98 H Blood Pressure Mean 105 Pulse Ox 97 Oxygen Delivery Method Room Air Positive well nourished and well developed General Appearance ED: well developed HEENT Reports normocephalic, head/scalp atraumatic and moist mucous membranes Eyes PERRL and EOMs intact bilaterally Neck no lymphadenopathy, supple and no JVD Resp normal respiratory effort and clear to auscultation bilaterally Cardio regular rate, regular rhythm and no murmurs GI normal to inspection, nondistended, normoactive bowel sounds and non-tender Palpation: soft Back/Spine no CVA tenderness and normal ROM Back/Spine Narrative: paraspinal muscle ttp Cervical Spine: cervical spine tenderness Cervical Spine Tenderness Details: diffuse Extremity normal to inspection General Extremety ED: Negative for edema General Extremity: Negative for edema Neuro oriented x3 and CN's II-XII intact bilaterally Sensorium / Orientation: alert Motor Exam: strength 5/5 throughout Psych mental status grossly normal Mood & Affect: Negative for depressed or tearful Skin no rashes or lesions noted and no wounds MDM MDM MDM Narrative Medical decision making narrative: Basic blood work was obtained and was negative. Allergy was negative. CT of the brain and cervical spine was also negative. He received a dose of Toradol. I think the patient's headache and neck pain is most likely tension headache. I had crisis visit with him regarding his anxiety. They are in agreement with me that the patient does not seem to require emergent psychiatric hospitalization tonight. They are going to reach out to him and encourage some counseling and he is amendable to this. The patient overall is feeling better and I think it is reasonable that we discharged him home. Lab Data Attestation: I reviewed the patient's lab results. Labs: Laboratory Results - last 24 hr 09/02/22 09/02/22 09/02/22 18:20 18:20 18:20 WBC 8.2 RBC 4.76 Hgb 15.5 Hct 44.0 MCV 92.4 MCH 32.6 H MCHC 35.2 RDW Std Deviation 43.1 RDW Coeff of [place] 12.7 Plt Count 224 MPV 10.2 Immature Gran % (Auto) 0.600 Neut % (Auto) 75.9 H Lymph % (Auto) 17.2 L [place] % (Auto) 5.0 Eos % (Auto) 0.7 Baso % (Auto) 0.6 Absolute Neuts (auto) 6.3 Absolute Lymphs (auto) 1.42 Nucleated RBC % 0 Sodium 139 Potassium 4.3 Chloride 105 Carbon Dioxide 28.0 Anion Gap 6 BUN 11 Creatinine 0.99 Estim Creat Clear Calc 111.04 Est GFR (MDRD) Af Amer 108 Est GFR (MDRD) Non-Af 89 BUN/Creatinine Ratio 11.1 Glucose 102 Calcium 8.0 L Total Bilirubin 0.40 AST 23 ALT 35 Alkaline Phosphatase 76 Total Protein 6.7 Albumin 3.7 Globulin 3.0 Albumin/Globulin Ratio 1.2 TSH 1.90 Urine Opiates Screen Urine Methadone Screen Ur Barbiturates Screen Ur Phencyclidine Scrn Ur Amphetamines Screen MDMA (Ecstasy) Screen U Benzodiazepines Scrn Urine Cocaine Screen U Cannabinoids Screen Ur Drug Screen Comment Ethyl Alcohol < 3.0 09/02/22 19:11 WBC RBC Hgb Hct MCV MCH MCHC RDW Std Deviation RDW Coeff of [place] Plt Count MPV Immature Gran % (Auto) Neut % (Auto) Lymph % (Auto) [place] % (Auto) Eos % (Auto) Baso % (Auto) Absolute Neuts (auto) Absolute Lymphs (auto) Nucleated RBC % Sodium Potassium Chloride Carbon Dioxide Anion Gap BUN Creatinine Estim Creat Clear Calc Est GFR (MDRD) Af Amer Est GFR (MDRD) Non-Af BUN/Creatinine Ratio Glucose Calcium Total Bilirubin AST ALT Alkaline Phosphatase Total Protein Albumin Globulin Albumin/Globulin Ratio TSH Urine Opiates Screen NEGATIVE Urine Methadone Screen NEGATIVE Ur Barbiturates Screen NEGATIVE Ur Phencyclidine Scrn NEGATIVE Ur Amphetamines Screen NEGATIVE MDMA (Ecstasy) Screen NEGATIVE U Benzodiazepines Scrn NEGATIVE Urine Cocaine Screen NEGATIVE U Cannabinoids Screen NEGATIVE Ur Drug Screen Comment Ethyl Alcohol Radiography Diagnostic Testing: Clinical Impression(s) from Imaging Studies Cervical Spine CT 09/02/22 18:14 IMPRESSION: (NOT LISTED IN ORDER OF SIGNIFICANCE) Multilevel degenerative changes, as described above. Electronically Signed: Thong Reina MD at 19:17 EDT , Brain CT 09/02/22 18:15 IMPRESSION: There are no acute intracranial findings. Electronically Signed: Thong Reina MD at 19:15 EDT , EKG Initial EKG: Attestation: I personally reviewed and interpreted this EKG as follows: Comments: Normal sinus rhythm with a ventricular rate of 100 bpm. No concerning features of ACS or ectopy noted Discharge Plan Triage Chief Complaint: Mental Health ED Provider: Nahun Ybarra Dx/Rx/DC Orders Clinical Impression: Tension headache, Anxiety Instructions: Tension Headaches, ED Anxiety Reaction Prescriptions: No Action gabapentin 600 MG tablet 400 mg PO 4X/DAY cholecalciferol (vitamin D3) 25 MCG capsule 25 mcg PO DAILY lorazepam 1 MG tablet 0.5 mg PO PRN PRN (Reason: Anxiety) venlafaxine 150 mg capsule,extended release 24hr 75 cap PO DAILY fluoxetine 20 mg capsule 1 cap PO DAILY lamotrigine 200 mg tablet 1 tab PO QHS Primary Care Provider: Jm Ty Referrals: Counseling,Center [Group of Physicians] - As soon as possible Jm Ty MD [Primary Care Provider] - Disposition Disposition: Home, Self Care
[2022-09-02 18:32] LABS: Absolute Lymphocyte Count 1.42 X10^3/uL (0.83-4.51); Absolute Neutrophil Count 6.3 X10^3/uL (2.0-7.7); Basophil# 0.05 X10^3/uL; Basophil% 0.6 % (0-1); Eosinophil# 0.06 X10^3/uL; Eosinophils% 0.7 % (0-5); Hemoglobin 15.5 g/dL (13.0-16.5); Lymphocyte # 1.42 X10^3/ul (0.83-4.51); Lymphocyte % 17.2 % (19-41); Mean Corp Hgb Conc 35.2 g/dL (32-36); Mean Corpuscular Hgb 32.6 pg (27.0-32.0); Mean Corpuscular Volume 92.4 fL (80-94); Mean Platelet Vol. 10.2 fl (6.2-12.0); Monocyte# 0.41 X10^3/uL; NRBC Flagged by Analyzer 0 % (0-5); Neutrophil # 6.25 X10^3/uL (2.7-7.7); Neutrophil % 75.9 % (47-70); Platelet Count 224 K/mm3 (150-450); RBC Distribution Width CV 12.7 % (11.6-14.6); RBC Distribution Width SD 43.1 fl (35.1-43.9); Red Blood Count 4.76 M/mm3 (4.6-6.2); White Blood Count 8.2 K/mm3 (4.4-11.0)
[2022-09-02 18:45] LABS: Alcohol, Blood (Medical)-Serum < 3.0 mg/dL
[2022-09-02 19:01] LABS: ALB/GLOB Ratio 1.2 RATIO (0.9-2.4); AST(SGOT) 23 U/L (15-37); Alanine Aminotransfer ALT/SGPT 35 U/L (16-61); Albumin, Serum 3.7 g/dL (3.2-5.0); Alkaline Phosphatase 76 U/L (45-117); Anion Gap 6 (5-15); BUN 11 mg/dL (7-18); BUN/Creat Ratio 11.1 RATIO (10-20); Chloride 105 mmol/L (98-107); Creatinine, Serum 0.99 mg/dL (0.70-1.30); EST Glomerular Filtration Rate 89 mL/min (>60); Est Glom Filt Rate - Afr Amer 108 mL/min (>60); Estimated Creatinine Clearance 111.04 ml/min; Glucose 102 mg/dL (74-106); Potassium 4.3 mmol/L (3.5-5.1); Protein, Total 6.7 g/dL (6.4-8.2); Sodium Level 139 mmol/L (136-145)
[2022-09-02 19:35] LABS: Amphetamine Urine VISTA NEGATIVE (<1000 ng/mL); Barbiturate Urine VISTA NEGATIVE (< 200 ng/mL); Benzodiazepine Urine VISTA NEGATIVE (< 200 ng/mL); Cocaine Urine VISTA NEGATIVE (< 300 ng/mL); Ecstacy Urine VISTA NEGATIVE (< 500 ng/mL); Methadone Urine VISTA NEGATIVE (< 300 ng/mL); PCP Urine VISTA NEGATIVE (< 25 ng/mL); THC Urine VISTA NEGATIVE (< 50 ng/mL); Vista UDS pH Range 7
[2022-09-02 20:21] VITALS: PULSE 89; RESP 18; O2SAT 100
== END 2022-09-02 20:22 | disposition home or self-care (01) ==
PROVIDERS: Emergency Provider Emergency Medicine; PCP Internal Medicine; Visit Provider Emergency Medicine
DX: G44.209 Tension-type headache, unspecified, not intractable (principal); F41.9 Anxiety disorder, unspecified; M54.2 Cervicalgia; Z87.891 Personal history of nicotine dependence; Z20.822 Contact with and (suspected) exposure to COVID-19
CPT/HCPCS: 70450; 72125; 80053; 80307; 82077; 84443; 85025; 87811; 93005; 99282

== ENCOUNTER 2022-10-10 05:10 | Emergency (ER) | payer MEDICAID, SELFPAY ==
[2022-10-10 05:11] VITALS: BP 166/98; PULSE 121; RESP 20; TEMP 36.8; O2SAT 95; BMI 35.2
--- NOTE | 2022-10-10 06:05 | EX.ED.VIS.PS ---
HPI HPI - Psych History of Present Illness Chief Complaint: Anxiety Informant: patient Narrative Narrative: Brought in by EMS from home. Patient called reporting increasing anxiety. History of generalized anxiety disorder, reports history of depression. He is followed by psychiatry. However cannot recall the last time he visited. States is virtual. He is on gabapentin and Ativan. He states did not want to be on these medications. Was previously on lamotrigine and was weaned off. He states increasing stress and worry with taking care of his mother. She does have some independence. She can get around. He lives with her. He states he has overwhelming concerns. He denies suicidal homicidal ideations. Denies any auditory hallucinations. He states when he closes eyes at times would see were texting that would go away before he fully sees the words. He denies any alcohol or any illicit drug use. Prior similar symptoms: Yes PFSH PFSH Medical History Anxiety Arthritis Back pain Bipolar disorder, unspecified Limb weakness Major depressive disorder, recurrent, moderate Panic attacks Panic disorder Home Medications gabapentin 600 mg tablet 400 mg PO 4X/DAY 11/27/20 [History Last Taken Unknown] cholecalciferol (vitamin D3) 25 mcg (1,000 unit) capsule 25 mcg PO DAILY 12/15/20 [History Last Taken Unknown] lorazepam 1 mg tablet 0.5 mg PO PRN PRN Anxiety 12/15/20 [History Last Taken Unknown] fluoxetine 20 mg capsule 1 cap PO DAILY 06/08/22 [History Last Taken Unknown] lamotrigine 200 mg tablet 1 tab PO QHS 06/08/22 [History Last Taken Unknown] venlafaxine 150 mg capsule,extended release 24 hr 75 cap PO DAILY 06/08/22 [History Last Taken Unknown] Allergy/AdvReac Type Severity Reaction Status Date / Time No Known Allergies Allergy Verified 10/10/22 05:14 Family History Other Anxiety Depression Surgical History H/O eye surgery [place] teeth removed Social History Smoking Status: Former smoker alcohol intake: never ROS ROS ED Constitutional Constitutional ED: Denies chills, fever(s) or sweats Eyes Eyes: Denies change in vision ENT ENT ED: Denies dysphagia or sore throat Cardiovascular Cardiovascular: Denies chest pain, leg edema, palpitations or racing heartbeat Respiratory/Chest Respiratory/Chest: Denies cough, dyspnea or dyspnea on exertion Gastrointestinal Gastrointestinal: Denies abdominal pain, diarrhea, nausea or vomiting Genitourinary Genitourinary ED: Denies dysuria, hematuria or urinary frequency Musculoskeletal Musculoskeletal: Denies back pain, extremity pain or neck pain Integumentary Denies rash or wounds Neurologic Neurologic: Denies headache(s), paresthesias or weakness Psychiatric Psychiatric: Reports anxiety; Denies depression, suicidal ideation or suicidal thoughts EXAM Physical Exam Const Vital Signs: 10/10/22 05:11 Temperature 98.2 F Temperature Source Temporal Pulse Rate 121 H Respiratory Rate 20 H Blood Pressure 166/98 H Blood Pressure Mean 120 Pulse Ox 95 Oxygen Delivery Method Room Air Positive well nourished and well developed Constitutional Narrative: Anxious, cooperative. General Appearance ED: well developed HEENT Reports moist mucous membranes normocephalic and atraumatic Eyes PERRL, EOMs intact bilaterally and conjunctivae normal General Eye ED: Yes normal appearance of both eyes Neck no lymphadenopathy and supple General: Negative for tenderness Chest Wall Chest: Negative for tenderness Resp normal respiratory effort and normal air movement Effort and Inspection: symmetric chest movement; Negative for respiratory distress Cardio regular rhythm and no murmurs Rate: tachycardic Peripheral Pulses: pulses 2+ throughout GI normal to inspection, nondistended, normoactive bowel sounds and non-tender Palpation: Negative for guarding or rebound tenderness present Back/Spine no CVA tenderness and no thoracic nor lumbar tenderness Extremity normal to inspection General Extremety ED: Negative for edema or tenderness General Extremity: Negative for edema Neuro oriented x3 and no sensory deficits noted Sensorium / Orientation: awake and alert Psych Negative for denies hallucinations, denies homicidal ideation or denies suicidal ideation Skin no rashes or lesions noted and no wounds MDM MDM MDM Narrative Medical decision making narrative: Patient nontoxic is tachycardic however likely from his anxiety. He denies suicidal homicidal ideations. He was thirsty is able to tolerate oral fluids in the ED. He was observed, he did not want any medications. He states he is trying to get off his Ativan and his gabapentin. Discussed importance of following with his psychiatrist as an outpatient for continued outpatient management and adjustments as needed. Do not feel he is immediate threat at this time and work-up not necessary in the emergency department. He states he will call his psychiatrist for follow-up. He will be discharged. Discharge Plan Triage Chief Complaint: Anxiety ED Provider: Davi Gonzalez Dx/Rx/DC Orders Clinical Impression: Anxiety, Generalized anxiety disorder with panic attacks Instructions: KATIE, ED Anxiety Reaction Prescriptions: No Action gabapentin 600 MG tablet 400 mg PO 4X/DAY cholecalciferol (vitamin D3) 25 MCG capsule 25 mcg PO DAILY lorazepam 1 MG tablet 0.5 mg PO PRN PRN (Reason: Anxiety) venlafaxine 150 mg capsule,extended release 24hr 75 cap PO DAILY fluoxetine 20 mg capsule 1 cap PO DAILY lamotrigine 200 mg tablet 1 tab PO QHS Primary Care Provider: Jm Ty Referrals: Jm Ty MD [Primary Care Provider] - Activity Restrictions/Additional Instructions: Follow-up with your psychiatrist for continued outpatient care. Disposition Disposition: Home, Self Care Discharge Date/Time: 10/10/22 06:29
--- NOTE | 2022-10-10 06:21 | ED.RN ---
PT REFUSED TO GO TO WAITING ROOM AND REQUESTED TO STAY IN ROOM WITH LIGHTS OFF AND SLEEP. PT IS DISCHARGED TO HOME.
== END 2022-10-10 06:29 | disposition home or self-care (01) ==
LOC: ED 06:12
PROVIDERS: Emergency Provider Emergency Medicine; PCP Internal Medicine; Visit Provider Emergency Medicine
DX: F41.1 Generalized anxiety disorder (principal); F41.0 Panic disorder [episodic paroxysmal anxiety]; Z87.891 Personal history of nicotine dependence; Z79.899 Other long term (current) drug therapy
CPT/HCPCS: 99284

== ENCOUNTER 2023-01-14 16:53 | Emergency (ER) | payer MEDICAID, SELFPAY ==
[2023-01-14 16:53] VITALS: BP 170/108; PULSE 113; RESP 18; TEMP 36.8; O2SAT 99; BMI 35.9
--- NOTE | 2023-01-14 17:32 | EX.ED.VIS.PS ---
HPI HPI - Psych History of Present Illness Chief Complaint: Mental Health Informant: patient Narrative Narrative: Patient presents saying that he is having a severe panic attack today, given him chest discomfort. He states that this is not uncommon for him, he has a terrible problem with anxiety and panic attacks. He is on medication for this which includes a lorazepam, however he states he does not know if he took a lorazepam today or not. He states he felt like he was going to which is why he came here today. He is not feeling that way anymore. He denies any suicidality. He denies any new symptoms or recent illness or self injury. [facility] Medical History Anxiety Arthritis Back pain Bipolar disorder, unspecified Limb weakness Major depressive disorder, recurrent, moderate Panic attacks Panic disorder Home Medications gabapentin 600 mg tablet 400 mg PO 4X/DAY 11/27/20 [History Last Taken Unknown] cholecalciferol (vitamin D3) 25 mcg (1,000 unit) capsule 25 mcg PO DAILY 12/15/20 [History Last Taken Unknown] lorazepam 1 mg tablet 0.5 mg PO PRN PRN Anxiety 12/15/20 [History Last Taken Unknown] fluoxetine 20 mg capsule 1 cap PO DAILY 06/08/22 [History Last Taken Unknown] Allergy/AdvReac Type Severity Reaction Status Date / Time No Known Allergies Allergy Verified 01/14/23 16:55 Family History Other Anxiety Depression Surgical History H/O eye surgery [place] teeth removed Social History Smoking Status: Current every day smoker tobacco type: e-cigarettes alcohol intake: never ROS ROS ED Constitutional Constitutional ED: Denies chills or fever(s) Eyes Eyes: Denies change in vision or diplopia ENT ENT ED: Denies rhinorrhea or sore throat Cardiovascular Cardiovascular: Reports chest pain; Denies palpitations Respiratory/Chest Respiratory/Chest: Denies cough or dyspnea Gastrointestinal Gastrointestinal: Denies abdominal pain, diarrhea, nausea or vomiting Genitourinary Genitourinary ED: Denies dysuria or hematuria Musculoskeletal Musculoskeletal: Denies back pain or neck pain Integumentary Denies abscess or rash Neurologic Neurologic: Denies headache(s), paresthesias or weakness Psychiatric Psychiatric: Reports as per HPI, anxiety, depression and panic attacks; Denies suicidal ideation or suicidal thoughts EXAM Physical Exam Const Vital Signs: 01/14/23 16:53 Temperature 98.2 F Temperature Source Temporal Pulse Rate 113 H Respiratory Rate 18 Blood Pressure 170/108 H Blood Pressure Mean 128 Pulse Ox 99 Oxygen Delivery Method Room Air Positive well nourished and well developed General Appearance ED: well developed and NAD HEENT Reports moist mucous membranes normocephalic and atraumatic Eyes Eyes Narrative: Irregular right pupil. Disconjugate gaze. Stable and chronic per patient. Neck full ROM and supple Resp normal respiratory effort and clear to auscultation bilaterally Cardio regular rate, regular rhythm and no murmurs Rate: tachycardic GI non-tender and non-distended Auscultation: normoactive bowel sounds Palpation: soft Back/Spine no CVA tenderness General Back: other FROM Extremity normal to inspection General Extremety ED: Negative for edema, pulses abnormal or tenderness General Extremity: Negative for edema or pulses abnormal Neuro oriented x3, CN's II-XII intact bilaterally and no sensory deficits noted Sensorium / Orientation: awake and alert Motor Exam: strength 5/5 throughout Psych cooperative, activity/motor behavior normal, denies hallucinations, denies homicidal ideation and denies suicidal ideation Mood & Affect: depressed, anxious and tearful Thought Content: normal thought content Insight: insight good Judgement: judgement good Skin no rashes or lesions noted and no wounds MDM MDM MDM Narrative Medical decision making narrative: The patient does not want an EKG or any other tests. I offered these in order to rule out emergent intrathoracic process, he states that this was a panic attack and now that he is doing a little better he does not think he needs any of that testing. I offered him lorazepam or something else to help him calm down and he declines and states I am not here for that. I then offered to allow him to rest and relax, or I could discharge him home, or he could rest and change his mind about any of these offers later. On reevaluation, the patient states he feels better although he is still crying at times uncontrollably, states he wants to go home and his chest is better. He declines offers for anxiolytics. Discharge Plan Triage Chief Complaint: Mental Health ED Provider: Jhoan Sharma Dx/Rx/DC Orders Clinical Impression: Panic attack Instructions: ED Panic Attack Prescriptions: No Action gabapentin 600 MG tablet 400 mg PO 4X/DAY cholecalciferol (vitamin D3) 25 MCG capsule 25 mcg PO DAILY lorazepam 1 MG tablet 0.5 mg PO PRN PRN (Reason: Anxiety) fluoxetine 20 mg capsule 1 cap PO DAILY Primary Care Provider: Jm Ty Referrals: Jm Ty MD [Primary Care Provider] - As Needed Disposition Disposition: Home, Self Care
== END 2023-01-14 18:23 | disposition home or self-care (01) ==
PROVIDERS: Emergency Provider Emergency Medicine; PCP Internal Medicine; Visit Provider Emergency Medicine
DX: F41.0 Panic disorder [episodic paroxysmal anxiety] (principal); F31.9 Bipolar disorder, unspecified; Z79.899 Other long term (current) drug therapy; F17.290 Nicotine dependence, other tobacco product, uncomplicated
CPT/HCPCS: 99284

== ENCOUNTER 2023-06-05 20:04 | Emergency (ER) | payer MEDICAID, SELFPAY ==
[2023-06-05 20:05] VITALS: BP 161/89; PULSE 124; RESP 18; TEMP 36.1; O2SAT 94; BMI 35.2
--- NOTE | 2023-06-05 20:52 | EX.ED.DYSGE1 ---
HPI History of Present Illness Chief Complaint: Anxiety Narrative Narrative: 38-year-old male presenting with anxiety. He states that he has a medical marijuana card and uses marijuana in a while and decided to watch a scary movie and smoke some marijuana in his basement and started to get anxious about it. And he states that his anxiety Building and building. He states that he has a longstanding history of anxiety disorder. He has Ativan at home but he does not like to take it if he does not need it. He supposed to take it every day but he tries to skip every other day. He does not use marijuana every day either. He has tried hydroxyzine for but states is not as effective as the Ativan. Patient states is pretty typical of an anxiety attack for him. He states he feels much better now on examination. [facility] Medical History Anxiety Arthritis Back pain Bipolar disorder, unspecified Limb weakness Major depressive disorder, recurrent, moderate Panic attacks Panic disorder Home Medications gabapentin 600 mg tablet 400 mg PO 4X/DAY 11/27/20 [History Last Taken Unknown] cholecalciferol (vitamin D3) 25 mcg (1,000 unit) capsule 25 mcg PO DAILY 12/15/20 [History Last Taken Unknown] lorazepam 1 mg tablet 0.5 mg PO PRN PRN Anxiety 12/15/20 [History Last Taken Unknown] fluoxetine 20 mg capsule 1 cap PO DAILY 06/08/22 [History Last Taken Unknown] hydroxyzine HCl 25 mg tablet 25 mg PO TID PRN anxiety #30 tabs 06/05/23 [Rx Last Taken Unknown] Allergy/AdvReac Type Severity Reaction Status Date / Time No Known Allergies Allergy Verified 06/05/23 20:07 Family History Other Anxiety Depression Surgical History H/O eye surgery [place] teeth removed Social History Smoking Status: Current every day smoker tobacco type: e-cigarettes alcohol intake: never ROS ROS ED Constitutional Constitutional ED: Denies chills, fever(s) or sweats Eyes Eyes: Denies blurry vision or change in vision ENT ENT ED: Denies ear pain or sore throat Cardiovascular Cardiovascular: Reports palpitations and racing heartbeat; Denies chest pain Respiratory/Chest Respiratory/Chest: Denies cough, dyspnea or sputum Gastrointestinal Gastrointestinal: Denies abdominal pain, constipation, diarrhea, nausea or vomiting Genitourinary Genitourinary ED: Denies dysuria, hematuria or urinary frequency Musculoskeletal Musculoskeletal: Denies arthralgias, myalgias or neck pain Integumentary Denies abscess, Abrasions or rash Neurologic Neurologic: Denies headache(s), paresthesias or weakness Psychiatric Psychiatric: Reports anxiety; Denies depression, suicidal ideation or suicidal thoughts Endocrine Endocrinology: Denies polydipsia or polyuria EXAM Physical Exam Const Vital Signs: 06/05/23 20:05 Temperature 97 F L Temperature Source Temporal Pulse Rate 124 H Respiratory Rate 18 Blood Pressure 161/89 H Blood Pressure Mean 113 Pulse Ox 94 Oxygen Delivery Method Room Air Positive well nourished General Appearance ED: NAD; Negative for pallor HEENT Reports moist mucous membranes Eyes PERRL and EOMs intact bilaterally Chest Wall inspection of chest normal and palpation of chest normal Resp normal respiratory effort and clear to auscultation bilaterally Auscultation: Negative for rales, rhonchi or wheezes Cardio regular rhythm Rate: tachycardic GI normal to inspection, nondistended, normoactive bowel sounds Neuro oriented x3 and CN's II-XII intact bilaterally Sensorium / Orientation: alert Motor Exam: strength 5/5 throughout Psych mental status grossly normal Skin no rashes or lesions noted and no wounds General Skin Exam: Negative for jaundice or pallor MDM MDM MDM Narrative Medical decision making narrative: 38-year-old male presenting with anxiety. He states it settled since he has been here. He states is pretty typical for him. He states he does not want Ativan. He was amenable to has hydroxyzine but does not want here in the ED. He states he does not like to take pills for his anxiety. He is offered blood work and imaging just to rule out a cardiac source given his palpitations and anxiety but he denies this. He states he just wants to go home. I will give him prescription for hydroxyzine. I gave him return precautions. Impression 1. Anxiety Discharge Plan Triage Chief Complaint: Anxiety ED Provider: Conner Lara Dx/Rx/DC Orders Instructions: ED Anxiety Reaction Prescriptions: New hydroxyzine HCl 25 mg tablet 25 mg PO TID PRN (Reason: anxiety) Qty: 30 0RF No Action gabapentin 600 MG tablet 400 mg PO 4X/DAY cholecalciferol (vitamin D3) 25 MCG capsule 25 mcg PO DAILY lorazepam 1 MG tablet 0.5 mg PO PRN PRN (Reason: Anxiety) fluoxetine 20 mg capsule 1 cap PO DAILY Primary Care Provider: Jm Ty Referrals: Jm Ty MD [Primary Care Provider] - Disposition Disposition: Home, Self Care Discharge Date/Time: 06/05/23 21:09
== END 2023-06-05 21:09 | disposition home or self-care (01) ==
LOC: ED 20:56
PROVIDERS: Emergency Provider Student in an Organized Health Care Education/Training Program; PCP Internal Medicine; Visit Provider Student in an Organized Health Care Education/Training Program
DX: F41.9 Anxiety disorder, unspecified (principal); F33.1 Major depressive disorder, recurrent, moderate; Z79.899 Other long term (current) drug therapy; F17.290 Nicotine dependence, other tobacco product, uncomplicated
CPT/HCPCS: 99285

== ENCOUNTER 2023-12-11 08:05 | Emergency (ER) | payer MEDICAID, SELFPAY ==
[2023-12-11 08:05] VITALS: BP 149/91; PULSE 122; RESP 16; O2SAT 97
[2023-12-11 08:06] VITALS: BP 149/91; PULSE 120; RESP 16; TEMP 36.5; O2SAT 98; BMI 31.1
--- NOTE | 2023-12-11 08:21 | EDS_ITS ---
HPI HPI - Psych History of Present Illness Chief Complaint: Anxiety Detail of Chief Complaint: I am losing my mind Informant: patient Onset/Context/Timing Onset: - (Unable to tell me) Context: Unknown Conflict: - (Patient is not able to elaborate) Timing: - (Unknown) Current Severity: Limited information Maximum Severity: Limited information Worsened by: - (Unable to elaborate) Relieved by: Nothing Associated Symptoms Associated Symptoms - Psych: Positive for Change in sleeping, Decreased Interest and Decreased Concentration; Negative for Suicidal Thoughts, Grandiosity, Flight of Ideas, Increased activity, Pressured Speech, Agitated, Angry, Hostile, Threatening, Confusion, Paranoia, Visual Hallucinations or Auditory Hallucinations Specific plan (suicidal thought): None Narrative Narrative: Patient is a 38-year-old male with history of generalized anxiety disorder with panic attacks who called squad because he feels I am losing my mind . He does admit to tobacco use. He denies alcohol use. When asked about drug use he initially stated no. He then stated marijuana. When asked to quantitate he said significant. Patient denies homicidal or suicidal ideation. Patient lives alone. When asked what type of work he does he responded I cannot tell you . Information is very limited. Patient shook his head several times when asked questions. He consistently responded I think I am losing my mind . He apparently is on gabapentin for chronic pain. He states he is on no other meds. Per review of old records he is post to be on fluoxetine, lorazepam and hydroxyzine. Prior similar symptoms: Yes [facility] Medical History Anxiety Arthritis Back pain Bipolar disorder, unspecified Limb weakness Major depressive disorder, recurrent, moderate Panic attacks Panic disorder Home Medications gabapentin 600 mg tablet 400 mg PO 4X/DAY 11/27/20 [History Last Taken Unknown] cholecalciferol (vitamin D3) 25 mcg (1,000 unit) capsule 25 mcg PO DAILY 12/15/20 [History Last Taken Unknown] lorazepam 1 mg tablet 0.5 mg PO PRN PRN Anxiety 12/15/20 [History Last Taken Unknown] fluoxetine 20 mg capsule 1 cap PO DAILY 06/08/22 [History Last Taken Unknown] hydroxyzine HCl 25 mg tablet 25 mg PO TID PRN anxiety #30 tabs 06/05/23 [Rx Last Taken Unknown] fluoxetine 20 mg capsule 20 mg PO DAILY #30 caps 12/11/23 [Rx Last Taken Unknown] hydroxyzine HCl 25 mg tablet 25 mg PO TID PRN anxiety #60 tabs 12/11/23 [Rx Last Taken Unknown] lorazepam 0.5 mg tablet 0.5 mg PO TID PRN anxiety #30 tabs 12/11/23 [Rx Last Taken Unknown] Allergy/AdvReac Type Severity Reaction Status Date / Time No Known Allergies Allergy Verified 06/05/23 20:07 Family History Other Anxiety Depression Surgical History H/O eye surgery [place] teeth removed Social History (Updated 12/11/23 @ 08:[address] Dwight Payan MD) household members: none Smoking Status: Current every day smoker tobacco type: e-cigarettes alcohol intake: never ROS ROS ED Review of Systems ROS Unobtainable: due to mental condition EXAM Physical Exam Const Vital Signs: 12/11/23 08:06 12/11/23 08:05 Temperature 97.7 F L Temperature Source Temporal Pulse Rate 120 H 122 H Respiratory Rate 16 16 Blood Pressure 149/91 H 149/91 H Blood Pressure Mean 110 110 Pulse Ox 98 97 Oxygen Delivery Method Room Air Room Air Positive well nourished, well developed and unkempt General Appearance ED: unkempt and well developed; Negative for pallor HEENT Reports moist mucous membranes normocephalic and atraumatic Eyes EOMs intact bilaterally; Negative for PERRL Eyes Narrative: Pupils are not equal round and reactive due to trauma as a child. Neck no lymphadenopathy, supple and no JVD Chest Wall Chest Narrative: Appears normal Resp normal respiratory effort and clear to auscultation bilaterally Cardio S1 normal heart sound, S2 normal heart sound and no murmurs Rate: tachycardic Rhythm: regular rhythm GI non-tender, non-distended and no masses Palpation: soft Back/Spine no CVA tenderness Back/Spine Narrative: Inspection of the back appears normal. Extremity normal to inspection General Extremety ED: Negative for edema or tenderness General Extremity: Negative for edema Neuro CN's II-XII intact bilaterally, no sensory deficits noted and deep tendon reflexes 2+ bilaterally Neuro Narrative: Unable to determine orientation. Patient is awake. Uncertain whether he is alert. Sensorium / Orientation: Negative for alert Psych denies hallucinations, denies homicidal ideation and denies suicidal ideation; Negative for mental status grossly normal, thought process normal, cooperative, affect normal, speech normal or activity/motor behavior normal Appearance: unkempt Attitude: calm, withdrawn and evasive Activity / Motor Behavior: appropriate eye contact and psychomotor slowing Speech: minimal, slow and soft Mood & Affect: depressed and flat affect Thought Process: other Patient's answers are minimal. Appears flustered. Thought Content: depersonalization Attention / Concentration: attention grossly impaired and concentration grossly impaired Insight: other Unable to determine suspect poor. Skin General Skin Exam: Negative for jaundice or pallor Lesions: no lesions Rashes: no rashes MDM MDM MDM Narrative Medical decision making narrative: Patient has components of depression. History is very limited. Will obtain appropriate laboratory studies for medical clearance. Because patient is tachycardic and uncertain why patient is tachycardic we will obtain TSH to evaluate for thyroid disease. Talk screen was obtained to assess for any sympathomimetic or stimulant overdose. He was placed on the monitor. EKG was obtained. History & Record Review Additional record(s) reviewed:: Prior ED visit (Patient has been seen several times in the past 2 years for anxiety and panic attacks.) and Prior labs Lab Data Lab results narrative: CBC is normal. Basic metabolic panel is remarkable for a calcium of 8.4. TSH is normal. Talk screen is positive for phencyclidine and cannabinoids. Alcohol was nondetected. Labs: Laboratory Results - last 24 hr 12/11/23 12/11/23 08:40 09:05 WBC 5.2 RBC 4.72 Hgb 14.5 Hct 44.0 MCV 93.2 MCH 30.7 MCHC 33.0 RDW Std Deviation 44.6 H RDW Coeff of [place] 13.0 Plt Count 178 MPV 11.3 Immature Gran % (Auto) 0.200 Neut % (Auto) 65.1 Lymph % (Auto) 25.8 [place] % (Auto) 6.4 Eos % (Auto) 1.7 Baso % (Auto) 0.8 Absolute Neuts (auto) 3.4 Absolute Lymphs (auto) 1.33 Nucleated RBC % 0 Sodium 140 Potassium 3.5 Chloride 107 Carbon Dioxide 29.0 Anion Gap 4 L BUN 8 Creatinine 1.03 Estim Creat Clear Calc 120.24 Est GFR (MDRD) Af Amer 103 Est GFR (MDRD) Non-Af 85 BUN/Creatinine Ratio 7.8 L Glucose 96 Calcium 8.4 L TSH 2.20 Urine Opiates Screen NEGATIVE Urine Methadone Screen NEGATIVE Ur Barbiturates Screen NEGATIVE Ur Phencyclidine Scrn POSITIVE H Ur Amphetamines Screen NEGATIVE MDMA (Ecstasy) Screen NEGATIVE U Benzodiazepines Scrn NEGATIVE Urine Cocaine Screen NEGATIVE U Cannabinoids Screen POSITIVE H Ur Drug Screen Comment Ethyl Alcohol < 3.0 Rhythm Strip Rhythm Strip: Sinus Tach Rate: 118 Ectopy: None EKG Initial EKG: Attestation: I personally reviewed and interpreted this EKG as follows: Interpretation: Sinus Tachycardia (Rate is 113. Other than the tachycardia the EKG is normal. WA interval is 134 ms. QRS duration 86 ms. QT duration 344 ms. 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 She believes was a paranoia component. Patient is agreeable to outpatient follow-up. Prescriptions for fluoxetine, hydroxyzine and lorazepam were written for.) Discharge Plan Triage Chief Complaint: Anxiety ED Provider: Dwight Payan Dx/Rx/DC Orders Clinical Impression: Sinus tachycardia, Depression, Phencyclidine (PCP) intoxication with complication, Paranoia, Tetrahydrocannabinol (THC) use disorder, moderate, dependence Instructions: ED Depression, ED Marijuana Abuse Prescriptions: New hydroxyzine HCl 25 mg tablet 25 mg PO TID PRN (Reason: anxiety) Qty: 60 0RF fluoxetine 20 mg capsule 20 mg PO DAILY Qty: 30 0RF lorazepam 0.5 mg tablet 0.5 mg PO TID PRN (Reason: anxiety) Qty: 30 0RF No Action gabapentin 600 MG tablet 400 mg PO 4X/DAY cholecalciferol (vitamin D3) 25 MCG capsule 25 mcg PO DAILY lorazepam 1 MG tablet 0.5 mg PO PRN PRN (Reason: Anxiety) fluoxetine 20 mg capsule 1 cap PO DAILY hydroxyzine HCl 25 mg tablet 25 mg PO TID PRN (Reason: anxiety) Qty: 30 0RF Primary Care Provider: mJ Ty Referrals: Counseling,Center [Group of Physicians] - Keep Narendra appointment Jm Ty MD [Primary Care Provider] - Disposition Disposition: Home, Self Care
[2023-12-11 08:51] LABS: Absolute Lymphocyte Count 1.33 X10^3/uL (0.83-4.51); Absolute Neutrophil Count 3.4 X10^3/uL (2.0-7.7); Basophil# 0.04 X10^3/uL; Basophil% 0.8 % (0-1); Eosinophil# 0.09 X10^3/uL; Eosinophils% 1.7 % (0-5); Hemoglobin 14.5 g/dL (13.0-16.5); Lymphocyte # 1.33 X10^3/ul (0.83-4.51); Lymphocyte % 25.8 % (19-41); Mean Corpuscular Hgb 30.7 pg (27.0-32.0); Mean Corpuscular Volume 93.2 fL (80-94); Mean Platelet Vol. 11.3 fl (6.2-12.0); Monocyte# 0.33 X10^3/uL; Monocyte% 6.4 % (0-10); NRBC Flagged by Analyzer 0 % (0-5); Neutrophil # 3.36 X10^3/uL (2.7-7.7); Neutrophil % 65.1 % (47-70); Platelet Count 178 K/mm3 (150-450); RBC Distribution Width SD 44.6 fl (35.1-43.9); Red Blood Count 4.72 M/mm3 (4.6-6.2); White Blood Count 5.2 K/mm3 (4.4-11.0)
[2023-12-11 09:10] LABS: Anion Gap 4 (5-15); BUN 8 mg/dL (7-18); BUN/Creat Ratio 7.8 RATIO (10-20); Calcium,Total 8.4 mg/dL (8.5-10.1); Chloride 107 mmol/L (98-107); Creatinine, Serum 1.03 mg/dL (0.70-1.30); EST Glomerular Filtration Rate 85 mL/min (>60); Est Glom Filt Rate - Afr Amer 103 mL/min (>60); Estimated Creatinine Clearance 120.24 ml/min; Glucose 96 mg/dL (74-106); Potassium 3.5 mmol/L (3.5-5.1); Sodium Level 140 mmol/L (136-145)
--- OUTSIDE RECORDS SUMMARY | 2023-12-11 09:15 | XMS RPT_ITS | CCD ---
Author Name Unknown Address [address] [place] [address] Organization [facility] Care Team Providers Care Food Service Assistant Name Role Phone Chato Lujan Unavailable Unavailabl e Chato Lujan Unavailable Unavailabl e Griggs, Dave K Unavailable Unavailable Griggs, Dave K Unavailable Unavailable Griggs, Dave K Unavailable Unavailable Indu, Dave K Unavailable Unavailable Jm Luo MD Primary Care Provider [phone] Karson RODAS, Jm Morrow Primary Care Provider [phone] Jm Luo MD Primary Care Provider [phone] JM LUO Primary Care Unavailable JM LUO Attending Unavailable MAGALY ALVAREZ Attending Unavailable JM LUO Primary Care Unavailable MAGALY ALVAREZ Attending Unavailable JM LUO Primary Care Unavailable MAGALY ALVAREZ Attending Unavailable JM LUO Primary Care Unavailable JM LUO Primary Care Unavailable OLDER, WHITLEY Attending Unavailable MAGALY ALVAREZ Attending Unavailable JM LUO Primary Care Unavailable JM LUO Primary Care Unavailable MAGALY ALVAREZ Attending Unavailable JM LUO Primary Care Unavailable OLDER, WHITLEY Referring Unavailable JM LUO Primary Care Unavailable JM LUO Attending Unavailable JM LUO Primary Care Unavailable MAGALY ALVAREZ Referring Unavailable MAGALY ALVAREZ Attending Unavailable JM LUO Primary Care Unavailable MAGALY ALVAREZ Attending Unavailable MAGALY ALVAREZ Attending Unavailable JM LUO Primary Care Unavailable Medications Completed/Discontinued Medications Medication Drug Class(es) Dates Sig (Normalized) Sig (Original) 24 hr desvenlafaxine succinate 25 mg extended release oral tablet (7 sources) Serotonin and Norepinephrine Reuptake Inhibitor Start: 05-25-2023 End: 08-28-2023 take 1 tablet by mouth once daily desvenlafaxine ER (PRISTIQ) 25 mg 24 hr tablet Indications: Generalized anxiety disorder , Recurrent major depression in partial remission (HCC) Take 1 tablet by mouth once daily. 30 tablet 2 05/25/2023 08/28/2023 Discontinued (Discontinued by Patient) Problems Active Problems Problem Classification Problem Date Documented Da te Episodic/Chronic Administrative/social admission (1 source) Encounter for blood-alcohol and blood-drug test; Translations: [Encounter for drug screening] Onset: 08-24-2023 Episodic Anxiety disorders (20 sources) Generalized anxiety disorder; Translations: [Generalized anxiety disorder] Onset: 07-18-2018 12-10-2020 Chronic Mood disorders (20 sources) Recurrent major depression in partial remission; Translations: [Major depressive disorder, recurrent, in partial remission] Onset: 03-24-2016 12-10-2020 Chronic Nutritional deficiencies (20 sources) Vitamin D deficiency; Translations: [Vitamin D deficiency, unspecified] Onset: 03-19-2018 03-19-2018 Chronic Other aftercare (1 source) Other psychiatric np (current) drug therapy; Translations: [High risk medication use] Onset: 08-24-2023 Episodic Other nutritional; endocrine; and metabolic disorders (20 sources) Obese class II; Translations: [Obesity, unspecified] Onset: 12-04-2019 12-04-2019 Chronic Other nutritional; endocrine; and metabolic disorders (20 sources) Obese class I; Translations: [Obesity, unspecified] Onset: 06-19-2022 06-19-2022 Chronic Other nutritional; endocrine; and metabolic disorders (1 source) Obesity, unspecified; Translations: [Obesity, Class I, BMI 30-34.9] Onset: 06-19-2022 Chronic Other upper respiratory infections (1 source) Viral upper respiratory tract infection; Translations: [Acute upper respiratory infection, unspecified] Episodic Personality disorders (20 sources) Borderline personality disorder; Translations: [Borderline personality disorder] Onset: 10-10-2021 10-10-2021 Chronic Substance-related disorders (20 sources) Tobacco user; Translations: [Nicotine dependence, unspecified, uncomplicated] Onset: 01-21-2016 10-31-2021 Chronic Unclassified (2 sources) APPOINTMENT CANCELLED Unclassified (2 sources) NO SHOW Past or Other Problems Problem Classification Problem Date Documented Da te Episodic/Chronic Complication of device; implant or graft (20 sources) Dislocated intraocular lens; Translations: [Displacement of intraocular lens, initial encounter] Onset: 03-13-2017 03-13-2017 Episodic Other screening for suspected conditions (not mental disorders or infectious disease) (1 source) Encounter for screening for lipoid disorders; Translations: [Screening for lipid disorders] Onset: 05-25-2023 Episodic Results Test Name Value Interpretation Reference Range Facil ity Vital Signs Date Time Vital Sign Value Performing Clinician Faci lity 11-23-2022 13:24-0500 Body temperature 97.7 [degF] Jm Luo MD Work Phone: [facility] 11-23-2022 13:24-0500 Body weight 116.12 kg Jm Luo MD Work Phone: [facility] 11-23-2022 13:24-0500 Diastolic blood pressure 76 mm[Hg] Jm Luo MD Work Phone: [facility] 11-23-2022 13:24-0500 Heart rate 88 /min Jm Luo MD Work Phone: [facility] 11-23-2022 13:24-0500 Respiratory rate 16 /min Jm Luo MD Work Phone: [facility] 11-23-2022 13:24-0500 Systolic blood pressure 118 mm[Hg] Jm Luo MD Work Phone: [facility] 06-19-2022 19:59-0400 Body temperature 97 [degF] Jm Luo MD Work Phone: [facility] 06-19-2022 19:59-0400 Body weight 106.14 kg Jm Luo MD Work Phone: [facility] 06-19-2022 19:59-0400 Diastolic blood pressure 72 mm[Hg] Jm Luo MD Work Phone: [facility] 06-19-2022 19:59-0400 Heart rate 84 /min Jm Luo MD Work Phone: [facility] 06-19-2022 19:59-0400 Respiratory rate 16 /min Jm Luo MD Work Phone: [facility] 06-19-2022 19:59-0400 Systolic blood pressure 116 mm[Hg] Jm Luo MD Work Phone: [facility] Encounters Encounter Date Encounter Type Care Provider Facility Start: 08-27-2023 Refill Jm devries MD Work Phone: [facility] [place] Procedures Date Procedure Procedure Detail Performing Clinician Start: 05-25-2023 Lipid 1996 panel - S yoel or Plasma Jm Luo MD Work Phone: Start: 11-07-2022 Follow-up visit Follow Up MAGALY ALVAREZ Start: 2022 2019 CORONAVIRUS Jm Luo MD Work Phone: Plan of Treatment Date Care Activity Detail Author Start: 05-25-2028 Lipid 1996 panel - S yoel or Plasma Lipid Screening [facility] Start: 05-25-2028 LIPID SCREEN LIPID SCREEN [facility] Start: 03-01-2028 Urine microalbumin profile [facility] Start: 05-04-2024 Influenza vaccination Influenza Vacc ine (#1) [facility] Immunizations Immunization Date Immunization Notes Care Provider Fa clifford 09-30-2021 influenza, injectabl e, quadrivalent, contains preservative [place] [place] [facility] 09-30-2021 influenza virus vaccine, unspecified formulation Jm Luo MD Work Phone: [facility] 11-08-2020 influenza, injectabl e, quadrivalent, contains preservative [place] [facility] Work Phone: 09-03-2019 influenza, injectabl e, quadrivalent, contains preservative [place] [place] [facility] 08-05-2018 influenza, injectabl e, quadrivalent, preservative free [facility] [place] [facility] Work Phone: 03-01-2018 tetanus toxoid, redu gonzalez diphtheria toxoid, and acellular pertussis vaccine, adsorbed Iop [place] [facility] Work Phone: Payers Date Payer Category Payer Medicaid [id number] [address] [facility] MEDICAID [facility] [employer] MEDICAID [id number] 2017-Present [phone] [address] [place] [address] Medicaid [id number] 2017 Medicaid [id number] 2017 Unknown [id number] Social History Date Type Detail Facility Start: 07-18-2018 End: 05-25-2023 Tobacco smoking status NHIS Ex-smoker [facility] Work Phone: Start: 1997 End: 02-03-2023 History of tobacco use Current smoker [facility] Work Phone: Start: 1997 End: 02-03-2023 History of tobacco use Cigarette Smoker [facility] Work Phone: Start: 07-18-2018 End: 03-09-2023 Cigarettes smoked current (pack per day) - Reported [address] [facility] Start: 07-18-2018 End: 05-25-2023 Tobacco use and exposure Smokeless tobacco non-user [facility] Work Phone: Start: 01-06-2022 End: 08-24-2023 Alcohol intake Current non-drinker of alcohol (finding) [facility] Start: 12-05-2020 End: 09-28-2021 History SDOH Alcohol Frequency [address] [facility] Start: 12-05-2020 History SDOH Social Connections Bahai [address] [facility] Start: 12-05-2020 History SDOH Physica l Activity MPS [address] [facility] Start: 12-05-2020 History SDOH Stress 4 [facility] Start: 12-05-2020 End: 09-28-2021 History SDOH Food Worry [address] [facility] Start: 12-05-2020 Education [address] [facility] Start: 1985 Sex Assigned At Male [facility] Start: 01-15-2022 End: 01-25-2022 Exposure to SARS-CoV-2 (event) Unable to assess [facility] Work Phone: Start: 12-03-2021 End: 06-19-2022 Exposure to SARS-CoV-2 (event) Not sure [facility] Start: 11-23-2022 [facility] smoker [facility] Work Phone: Start: 12-05-2020 End: 03-09-2023 Social connection and isolation panel [facility] How often do you att end mosque or bahai services? Patient refused [facility] Are you now , , , , never or living with a partner? Refused [facility] How often to you hav e a drink containing alcohol? Monthly or less [facility] How many standard drinks containing alcohol do you have on a typical day? 3 or [address] [facility] How often do you hav e 6 or more drinks on 1 occasion? Less than monthly [facility] How hard is it for y ou to pay for the very basics like food, housing, medical care, and heating Not very hard [facility] Do you feel stress - tense, restless, nervous, or anxious, or unable to sleep at night because your mind is troubled all the time - these days [OSQ] Rather much [facility] (I/We) worried wheth er (my/our) food would run out before (I/we) got money to buy more. Never true [facility] In the past 12 month s, was there a time when you were not able to pay the mortgage or rent on time? No [facility] Start: 05-25-2023 Tobacco Comment Started age 12. [facility] Start: 10-05-2021 Gender identity Identifies as male gender (finding) [facility] Start: 10-05-2021 Sexual orientation Heterosexual (alis myers) [facility] Medical Equipment Procedure Code Equipment Code Equipment Origin al Text Equipment Identifier Dates Lens Slant 7mm 5 D +25.5 Diopter Biconvex Monoflex 12.5mm Iol 1 Piece Uv - [id number] Start: 05-10-2017 Clinical Notes 07-18-2018 to 08-28-2023 Telephone Encounter - Chetna Raphael OCCA - 08/28/2023 2:10 PM EDTTelephone Encounter - Whitley Veliz APRN.CNP - 08/28/2023 12:49 PM EDTTelephone Encounter - Reed Gordillo Ma - 08/27/2023 1:14 PM EDT Note Date & Type Note Facility 08-28-2023 Miscellaneous Notes TC to patient who expressed frustration at below. Patient states he never wanted a refill of the Pristiq, he wanted a refill of Gabapentin. Apologized to patient d/t wrong medication being pended. Verified that he is wanting to d/c the Pristiq and to continue the Gabapentin. Also verified pharmacy with patient. Pended as requested by patient. Please advise. SILVIO Freeman Patient told me at his appointment on 08/24 that he discontinued this medication, does he want to resume taking? We can take over refills of this and the Gabapentin if he would like? Whitley Veliz APRN.TUCKER SANDRA: 08/24/2023 Last refill: 02/23/2023 QTY: 30 Refills: 2 Patient's request for medication is as follows: Requested Prescriptions Pending Prescriptions Disp Refills desvenlafaxine ER (PRISTIQ) 25 mg 24 hr tablet 30 tablet 2 Sig: Take 1 tablet by mouth once daily. Please approve the above prescription(s) to electronically send to pharmacy. Reed Gordillo Ma Pharmacy verified in [facility] Patient has been identified by name and date of : Yes Patient aware RX will be sent to pharmacy. No need to notify patient. Pharmacy phones for refill(s): Requested Prescriptions Pending Prescriptions Disp Refills desvenlafaxine ER (PRISTIQ) 25 mg 24 hr tablet 30 tablet 2 Sig: Take 1 tablet by mouth once daily. Date of last office visit : 08/24/2023 Date of next office visit : 11/26/2023 Last 2 Encounter Wt Readings: Date: Wt: 08/24/2023 117 kg (258 lb) 05/25/2023 120.7 kg (266 lb) Please advise. Kristen Ogden documented in this encounter [facility] 08-24-2023 Note HNO ID: [id number] Author: Whitley Veliz APRN.OFFSET SECOND PRESS OPERATOR Service: ? Author Type: Nurse Practitioner Type: Progress Notes Filed: 08/27/2023 3:29 PM Note Text: CC: Patient presents with: F/U 3 Month HPI Donis Ferrer is a 38 year old male who presents today for above. He is upset and scared because psychiatry stopped Ativan and is weaning him off Gabapentin. Not too worried about the Ativan but concerned pain will become much worse off the Gabapentin. Patient states he knows the Gabapentin is also for his anxiety but helped with pain more than anything. Very vague about location of pain. He stopped taking Pristiq on his own, doesn't work. Reportedly medication changes were made by psychiatry because she freaked out that he tried medical marijuana. He stopped smoking it because of this and wants drug tested today to prove this. Denies any other concerns today. Review of Systems See HPI PAST MEDICAL HISTORY Diagnosis Date Bilateral artificial lens implant Scleral sutured IOL OU Borderline personality disorder (HCC) 10/10/2021 Congenital cataract of both eyes 1984 Dislocated IOL (intraocular lens) 03/13/2017 Dislocated scleral sutured IOL OD Eye disease intraoccular lenses slipping in right eye Generalized anxiety disorder 07/18/[facility] History of substance abuse ([facility]) 07/18/2018 Opiates, and others snorted, no IVDA. Hyperopic astigmatism of both eyes Pseudophakia of both eyes 1983 Recurrent major depression in partial remission (HCC) 03/24/2016 [facility]. Tobacco abuse disorder 01/21/2016 Cigarettes smoke, around 10 a day. Wears glasses PAST SURGICAL HISTORY Procedure Laterality Date PAST SURGICAL HISTORY OF 05/2018 [place] teeth extraction [facility] LENS MATERIAL PARS PLANA W/WO VITRECTOMY Right 05/10/2017 right eye dislocated lens ALLERGIES Patient has no known allergies. MEDICATIONS ergocalciferol 50,000 unit capsule (VITAMIN D2, DRISDOL) Take 1 capsule by mouth one time a week. gabapentin (NEURONTIN) 400 mg capsule Take 1 capsule by mouth four times daily for 30 days. desvenlafaxine ER (PRISTIQ) 25 mg 24 hr tablet Take 1 tablet by mouth once daily. FAMILY HISTORY Problem Relation Age of Onset Schizophrenia Mother Bipolar disorder Mother Depression Mother Cataract Mother other (schizophrenia) Mother other (bipolar) Mother other (depression) Mother Cataract Maternal Grandmother Cataract Maternal Grandfather Social History Tobacco Use Smoking status: Former Packs/day: 1.00 Years: 23.00 Additional pack years: 0.00 Total pack years: 23.00 Types: Cigarettes Start date: 1997 Quit date: 02/03/2023 Years since quittin.5 Smokeless tobacco: Never Tobacco comments: Started age 12. Vaping Use Vaping Use: Former Start date: 09/05/2022 Substances: Nicotine, Flavoring Devices: Disposable, Pre-filled or refillable cartridge Substance Use Topics Alcohol use: No Drug use: No Comment: history of opiate abuse, etc. no IVDA BP 120/88 Pulse 98 Resp 14 Wt 117 kg (258 lb) BMI 34.99 kg/m? Physical Exam Vitals reviewed. Constitutional: General: He is not in acute distress. Neurological: Mental Status: He is alert. Psychiatric: Attention and Perception: Attention normal. Mood and Affect: Affect is blunt. Speech: Speech is delayed. Speech is not slurred. Behavior: Behavior is withdrawn. Health maintenance reviewed with patient: Covid-19 Vaccine(1) due on 11/23/2023 Influenza Vaccine(1) due on 05/04/2024 DTaP,Tdap,Td Vaccine(2 - Td or Tdap) due on 03/01/2028 Lipid Screening due on 05/25/2028 Hepatitis C Screening Completed HIV Screening Completed HPV Vaccine Aged Out DATA REVIEWED: Most recent labs ASSESSMENT/PLAN: 1. Generalized anxiety disorder - ICD9: 300.02, ICD10: F41.1 (primary diagnosis) Reviewed refill and telephone encounters regarding lorazepam and Gabapentin. Patient had called psychiatry on 07/27 to report he received medical marijuana card and requested to wean off Pristiq, Ativan and Gabapentin. Message back from psychiatry is not available for review however Ativan was discontinued from med list and patient was scheduled for follow-up on 08/13. Gabapentin was last refilled on 08/03, no changes in dose made and no messages regarding weaning off of this found. Patient ended up canceling appointment with psychiatry, per message he wanted to continue following up with PCP regarding medications. Advised patient of this but he denies requesting any of these medication changes. He is insistent that I run on a urine tox screen today to prove he is no longer using medical marijuana. Urine tox screen ordered per his request. I will message psychiatry for more information. If needed we can take over refills of Gabapentin in primary care, patient reports he wishes to remain off the ativan. 2. Encounter for drug screening - ICD9: V72.85, ICD10: Z02.83 , (more content not included)... [facility] 08-13-2023 Note HNO ID: [id number] Author: Magaly Alvarez APRN.TUCKER Service: ? Author Type: Nurse Practitioner Type: Progress Notes Filed: 08/13/2023 12:43 PM Note Text: Patient requested to cancel his appointment with the provider as he wanted to continue following up with his PCP. He is aware to reach out to this provider if he has questions or concerns. [facility] 08-13-2023 History of Presen t illness Narrative Patient requested to cancel his appointment with the provider as he wanted to continue following up with his PCP. He is aware to reach out to this provider if he has questions or concerns. documented in this encounter [facility] 08-03-2023 Miscellaneous Notes Patient notified script is at the pharmacy. patient was apologetic for being upset earlier today. PDMP website checked and validated. All prescriptions have been APPROPRIATELY filled. No suspicious activity was identified. 08/03/2023 by Meet Dean APRN.OFFSET SECOND PRESS OPERATOR - 30 day supply of Gabapentin sent for pt d/t provider absence from work. Notes reviewed Spoke to patient, explained that refills will need to be sent on the gabapentin and I have sent that request over to her covering provider and to check with the pharmacy later today. Patient has been identified by name and date of : Yes Requested Prescriptions Pending Prescriptions Disp Refills gabapentin (NEURONTIN) 400 mg capsule 120 capsule 2 Sig: Take 1 capsule by mouth four times daily for 90 days. RX INSTRUCTIONS: Please do not close the encounter and send to your pool. Medication just needs refills , Magaly is weaning off of this. Jenifer Garcia LPN Patient calling very upset yelling at me that the Gabapentin rx has been discontinued when he tried to get refill today at the pharmacy. Patient phone number is [phone]. Patient said I can not just stop it cold turkey, I am going to wind up in the hospital from this, he said he was going to get a workforce development vice president involved with this. Patient said to soon to wean off the medication. He wants call today please. Patient uses [facility] for his pharmacy. Please advise documented in this encounter [facility] 07-31-2023 Miscellaneous Notes Patient has been identified by name and date of : Yes Patient phones for refill(s): Requested Prescriptions Pending Prescriptions Disp Refills ergocalciferol 50,000 unit capsule (VITAMIN D2, DRISDOL) 12 capsule 0 Sig: Take 1 capsule by mouth one time a week. Date of last office visit in primary care: 05/25/2023 3 month follow-up: 08/24/2023 Last 2 Encounter Wt Readings: Date: Wt: 05/25/2023 120.7 kg (266 lb) 11/23/2022 116.1 kg (256 lb) Previous labs/tests for medication: Not applicable Please advise. Thank you. Eleni Bowling LPN Patient has been identified by name and date of : Yes Requested Prescriptions Pending Prescriptions Disp Refills ergocalciferol 50,000 unit capsule (VITAMIN D2, DRISDOL) 12 capsule 0 Sig: Take 1 capsule by mouth one time a week. RX INSTRUCTIONS: Patient aware RX will be sent to pharmacy. No need to notify patient. Daniela Ogden documented in this encounter [facility] 07-27-2023 Miscellaneous Notes Restricted notes were excluded Patient calls to report that he has received an [employer] Medical Card for Marijuana from an outside provider to assist with his pain and mental health. Patient reports that he is wanting to wean off of currently prescribed medications (desvenlafaxine, lorazepam, and gabapentin) but wants to do it safely. Noted patient missed 07/16/2023 appointment with Magaly. Patient became angry when asked about appointment and the need to discuss with provider at follow up. Forwarding to Magaly and Dr. Luo. Angela Montiel RN documented in this encounter [facility] 07-16-2023 Note HNO ID: [id number] Author: Magaly Alvarez APRN.OFFSET SECOND PRESS OPERATOR Service: ? Author Type: Nurse Practitioner Type: Progress Notes Filed: 07/16/2023 4:31 PM Note Text: Patient did not log in for his virtual appointment. He did not answer his phone before and during the appointment time. [facility] 09-11-2023 History of Presen t illness Narrative Patient did not log in for his virtual appointment. He did not answer his phone before and during the appointment time. documented in this encounter [facility] 05-25-2023 Note HNO ID: [id number] Author: Jm Luo MD Service: ? Author Type: Physician Type: Progress Notes Filed: 05/25/2023 2:44 PM Note Text: This note was created using TrialScope. Subjective Donis Ferrer is a 38 year old male. He was seeing Magaly for depression, anxiety and was here for refills. He was aware of the risks of benzodiazepines and was trying to reduce his dependence on them. He was interested in alternatives like medical marijuana or ketamine. He had a medical marijuana card, but had no access to a dispensary. He has quit smoking for a few months. Review of Systems Constitutional: Negative for unexpected weight change. Respiratory: Negative. Cardiovascular: Negative. Gastrointestinal: Negative. Psychiatric/Behavioral: Negative for dysphoric mood. The patient is not nervous/anxious. ACTIVE PROBLEM LIST Tobacco Use Disorder Recurrent Major Depression in Partial Remission (Hcc) Dislocated Iol (Intraocular Lens) Vitamin D Deficiency Generalized Anxiety Disorder History of Substance Abuse (Hcc) Borderline Personality Disorder (Hcc) Obesity, Class I, Bmi 30-34.9 Social History Tobacco Use Smoking status: Former Packs/day: 1.00 Years: 23.00 Total pack years: 23.00 Types: Cigarettes Start date: 1997 Quit date: 02/03/2023 Years since quittin.3 Smokeless tobacco: Never Tobacco comments: Started age 12. Vaping Use Vaping Use: Former Start date: 09/05/2022 Substances: Nicotine, Flavoring Devices: Disposable, Pre-filled or refillable cartridge Substance Use Topics Alcohol use: No Drug use: No Comment: history of opiate abuse, etc. no IVDA Current Outpatient Medications Medication Sig ergocalciferol 50,000 unit capsule (VITAMIN D2, DRISDOL) Take 1 capsule by mouth one time a week. desvenlafaxine ER (PRISTIQ) 25 mg 24 hr tablet Take 1 tablet by mouth once daily. LORazepam (ATIVAN) 0.5 mg TAKE 1 TABLET BY MOUTH DAILY NEEDED FOR UP TO 30 DAYS gabapentin (NEURONTIN) 400 mg capsule Take 1 capsule by mouth four times daily for 30 days. No current facility-administered medications for this visit. Objective BP 118/70 Pulse 88 Resp 16 Wt 120.7 kg (266 lb) BMI 36.08 kg/m? Physical Exam Constitutional: Appearance: He is obese. He is not ill-appearing. Eyes: General: No scleral icterus. Cardiovascular: Rate and Rhythm: Normal rate and regular rhythm. Pulmonary: Breath sounds: Normal breath sounds. Musculoskeletal: Right lower leg: No edema. Left lower leg: No edema. Neurological: Mental Status: He is alert. Psychiatric: Mood and Affect: Mood normal. Behavior: Behavior normal. Thought Content: Thought content normal. Assessment and Plan 1. Generalized anxiety disorder - ICD9: 300.02, ICD10: F41.1 (primary diagnosis) Controlled. - DESVENLAFAXINE SUCCINATE ER 25 MG TABLET,EXTENDED RELEASE 24 HR - LORAZEPAM 0.5 MG TABLET - GABAPENTIN 400 MG CAPSULE 2. Obesity, Class I, BMI 30-34.9 - ICD9: 278.00, ICD10: E66.9 Weight increasing - Behavioral intervention 3. Vitamin D deficiency - ICD9: 268.9, ICD10: E55.9 Recheck. 4. Recurrent major depression in partial remission (HCC) - ICD9: 296.35, ICD10: F33.41 Controlled. - DESVENLAFAXINE SUCCINATE ER 25 MG TABLET,EXTENDED RELEASE 24 HR 5. Screening for lipid disorders - ICD9: V77.91, ICD10: Z13.220 - LIPID PANEL, NONFASTING Jm Luo MD [facility] 05-09-2023 Miscellaneous Notes Please approve Vit D lab. Pt notified and will come in the beginning of next week to have done. Yina Drummond LPN Patient needs Vitamin D level checked Whitley Veliz APRN.TUCKER Patient has been identified by name and date of : Yes Patient phones for refill(s): Requested Prescriptions Pending Prescriptions Disp Refills ergocalciferol 50,000 unit capsule (VITAMIN D2, DRISDOL) 12 capsule 0 Sig: Take 1 capsule by mouth one time a week. Date of last office visit in primary care: 01/14/2023 Follow-up: 05/25/2023 Last 2 Encounter Wt Readings: Date: Wt: 11/23/2022 116.1 kg (256 lb) 06/19/2022 106.1 kg (234 lb) Previous labs/tests for medication: Not applicable Please advise. Thank you. Eleni Bowling LPN Patient has been identified by name and date of : Yes Last office visit in this department: 11/23/2022 RX INSTRUCTIONS: Patient aware RX will be sent to pharmacy. No need to notify patient. Patient phones requesting refills as follows: Requested Prescriptions Pending Prescriptions Disp Refills ergocalciferol 50,000 unit capsule (VITAMIN D2, DRISDOL) 12 capsule 0 Sig: Take 1 capsule by mouth one time a week. Please review and advise. Laura Dorsey documented in this encounter [facility] 03-29-2023 Note HNO ID: [id number] Author: Magaly Alvarez APRN.OFFSET SECOND PRESS OPERATOR Service: ? Author Type: Nurse Practitioner Type: Progress Notes Filed: 03/29/2023 10:07 PM Note Text: PSYC FOLLOW UP - PSYCHIATRIC PROGRESS NOTE DIAGNOSIS: Generalized Anxiety Disorder MDD, recurrent, moderate Borderline Personality Disorder GAF: -60-51 Moderate symptoms or moderate difficulty in social, occupational or school functioning. TREATMENT PLAN: Start Pristiq to help with anxiety and mood symptoms. Continue to work on lowering reliance on Ativan. Patient is motivated to work on this and only takes Ativan if needed. Continue Gabapentin at the same dose. Collaborate with primary care provider. Follow up in July. Medication Update: Pristiq 25 mg XR - take 1 tablet once every morning. Take Ativan only as needed and work on decreasing dose. Continue Gabapentin at the same dose. The effects and side effects of all the medications were reviewed in detail with the patient. He is in agreement with the treatment plan and aware to reach out with any questions, concerns, or worsening of symptoms prior to the next appointment. PDMP report was reviewed and found to be appropriate without any signs of misuse or diversion. CC: Follow up for psychiatric medication management. With the patient consent, visit was performed virtually. I have communicated my name and active licensure. The patient's identity and physical location were verified at the time of this visit. Either the patient or their legal treasury representative has been informed of the risks and benefits of -- and alternatives to -- treatment through a remote evaluation and consents to proceed with the evaluation remotely. HPI: Donis Ferrer is a 37 year old Male with a history of KATIE, MDD, and borderline personality disorder presenting today for follow-up. Date of last visit: 02/05/2023 Plan from last visit: Restart Prozac to help with mood and anxiety symptoms. Consider lowering the dose of Venlafaxine at the next visit if he is able to tolerate Prozac. Continue Gabapentin and Venlafaxine at the same dose. Work on decreasing reliance on Ativan. Review skills from previous IOPs and practice them. Follow up in 2 weeks. Today Donis shares that he is doing okay. He reports that he stopped both Prozac and Effexor. He felt that they were not helping his symptoms. He shares that he stopped them around 3 to 4 weeks ago. We discussed different treatment options. He is in agreement to try Pristiq. I am adri getting a better operations program manager of my panic attacks . Shares that he is able to talk through them more. He has been taking less Ativan and is open to gradually decreasing and discontinuing them. Continues to take Gabapentin at the same dose. We discussed reviewing and using his coping techniques that he has learned from IOP. He plans on taking care of his mother this summer. Helps with the [employer] work for the house. He would like to do more walking this summer. He has been looking into joining [employer]. They are associated with [employer] and allows them to participate in a mental health group. Interval Progress: Slightly worse Risks and benefits of the medication, including any black box warnings, were discussed with the patient. Social History: See HPI PATIENT DATA: Generalized Anxiety Disorder Scale (KATIE-7) KATIE - 7 SCORES 11/06/2022 02/05/2023 03/29/2023 KATIE-7 Score 7 9 11 (0-4) minimal anxiety, (5-9) mild anxiety, (10-14) moderate anxiety, (15-21) severe anxiety Patient Health Questionnaire (PHQ-9) PHQ-9 02/05/2023 02/22/2023 03/29/2023 Score 11 15 18 (0-4) minimal depression, (5-9) mild depression, (10-14) moderate depression, (15-19) moderately severe depression, (20-27) severe depression ROS: See HPI General: Negative for fever, malaise, unintentional weight loss HEENT: Negative for recent changes in vision or hearing, no nasal drainage Respiratory: Negative for cough, wheezing or SOB Cardiovascular: Negative for chest pain GI: Negative for nausea, vomiting, change in bowel habits MUSCULOSKELETAL: Negative for acute back or joint pain SKIN: Negative for rash NEURO: Negative for headaches, seizures, focal neurological deficits All other systems negative. VITAL SIGNS: BP Temp Pulse Resp SpO2 MENTAL STATUS EXAMINATION: Appearance: Appropriately groomed, appears stated age Behavior: Appropriately engaged Psychomotor: No psychomotor agitation Cognition Level of Consciousness: Awake and alert. No fluctuation in wakefulness. Orientation: Grossly oriented Memory: Intact Attention/Concentration: Good Fund of Knowledge: Able to demonstrate an awareness of current events. Mood: Mildly Anxious Affect: Congruent to mood Speech/Language: Appropriate tone, prosody, [place], phonetics, and syntax Thought Form: Goal-directed. No loosening of associations. Thought Content: No delusions noted or endorsed. Perce (more content not included)... [facility] 03-14-2023 Miscellaneous Notes Last appointment: 03/09/23 Next appointment: 03/30/23 documented in this encounter [facility] 02-22-2023 Note HNO ID: [id number] Author: Magaly Alvarez APRN.OFFSET SECOND PRESS OPERATOR Service: ? Author Type: Nurse Practitioner Type: Progress Notes Filed: 02/22/2023 11:49 AM Note Text: Patient did not log in for his virtual visit with the provider. He did not answer his phone when he was contacted prior to the appointment time. [facility] 02-22-2023 History of Presen t illness Narrative Patient did not log in for his virtual visit with the provider. He did not answer his phone when he was contacted prior to the appointment time. documented in this encounter [facility] 02-21-2023 Miscellaneous Notes Message left with information. Patient's mother Moon calling and asking about refill for medication Lorazepam. Please review and advise, Edyta Humphrey RN documented in this encounter [facility] 02-13-2023 Miscellaneous Notes Patient has been identified by name and date of : Yes, Provider Dr Luo Date 02/13/23 Time 858. Pharmacy phones for refill(s): Requested Prescriptions Pending Prescriptions Disp Refills ergocalciferol 50,000 unit capsule (VITAMIN D2, DRISDOL) 12 capsule 0 Sig: Take 1 capsule by mouth one time a week. Date of last office visit in primary care: 11/23/22 Future visit: none Last 2 Encounter Wt Readings: Date: Wt: 11/23/2022 116.1 kg (256 lb) 06/19/2022 106.1 kg (234 lb) Previous labs/tests for medication: Component Ref Range & Units 1 yr ago 3 yr ago 4 yr ago 6 yr ago Vitamin D 25 Hydroxy 31.0 - 80.0 ng/mL 26.6 Low 21.8 Low CM 24.4 Low CM 7.4 Low CM Please advise. Thank you. Gretchen Mayer RN documented in this encounter [facility] 02-05-2023 Note HNO ID: [id number] Author: Magaly Alvarez APRN.OFFSET SECOND PRESS OPERATOR Service: ? Author Type: Nurse Practitioner Type: Progress Notes Filed: 02/11/2023 9:18 PM Note Text: PSYC FOLLOW UP - PSYCHIATRIC PROGRESS NOTE DIAGNOSIS: Generalized Anxiety Disorder Borderline Personality Disorder MDD, recurrent, moderate GAF: -60-51 Moderate symptoms or moderate difficulty in social, occupational or school functioning. TREATMENT PLAN: Restart Prozac to help with mood and anxiety symptoms. Consider lowering the dose of Venlafaxine at the next visit if he is able to tolerate Prozac. Continue Gabapentin and Venlafaxine at the same dose. Work on decreasing reliance on Ativan. Review skills from previous IOPs and practice them. Follow up in 2 weeks. Medication Update: Prozac 20 mg - take 1 capsule once daily. 2. Continue Gabapentin, Venlafaxine, and Ativan at the same dose. The effects and side effects of all the medications were reviewed in detail with the patient. He is in agreement with the treatment plan and aware to reach out with any questions, concerns, or worsening of symptoms prior to the next appointment. PDMP report was reviewed and found to be appropriate without any signs of misuse or diversion. CC: Follow up regarding mood and anxiety With the patient consent, visit was performed virtually. I have communicated my name and active licensure. The patient's identity and physical location were verified at the time of this visit. Either the patient or their legal treasury representative has been informed of the risks and benefits of -- and alternatives to -- treatment through a remote evaluation and consents to proceed with the evaluation remotely. HPI: Donis Ferrer is a 37 year old Male with a history of KATIE, MDD, and borderline personality disorder presenting today for follow-up. Date of last visit: 11/07/2022 Plan from last visit: Increase Gabapentin back to original dose as patient could not tolerate the decrease. Continue Effexor at the same dose. Continue working on reducing Ativan use. Start IOP at [facility] [place]. Patient needs to call for an intake. Follow up in 3 months. Today Donis shares that he is doing okay. The winter kind of messes with me a little bit . He feels that the change in the weather will be helpful. He went on a long walk yesterday and it helped his mood. The medications are supporting his anxiety well. He is concerned about depression. He has a hard time managing negativity. He is not motivated to do things around the house. He has to really push himself to do things that he doesn't want. Noticed it worsening since September 2022. He would like to give Prozac another chance. [place] that it helped his mood and enjoying things again. He continues to rely on Ativan to help with anxiety. Has been trying to reduce use. He shares that he has completed IOP in the past. The skills that he has learned have been helpful. We discussed bringing out the workbook again to help with refreshing and practicing the skills. Interval Progress: Slightly worse Risks and benefits of the medication, including any black box warnings, were discussed with the patient. Social History: See HPI PATIENT DATA: Generalized Anxiety Disorder Scale (KATIE-7) KATIE - 7 SCORES 09/04/2022 11/06/2022 02/05/2023 KATIE-7 Score 14 7 9 (0-4) minimal anxiety, (5-9) mild anxiety, (10-14) moderate anxiety, (15-21) severe anxiety Patient Health Questionnaire (PHQ-9) PHQ-9 09/04/2022 11/06/2022 02/05/2023 Score 18 13 11 (0-4) minimal depression, (5-9) mild depression, (10-14) moderate depression, (15-19) moderately severe depression, (20-27) severe depression ROS: General: Negative for fever, malaise, unintentional weight loss HEENT: Negative for recent changes in vision or hearing, no nasal drainage Respiratory: Negative for cough, wheezing or SOB Cardiovascular: Negative for chest pain GI: Negative for nausea, vomiting, change in bowel habits MUSCULOSKELETAL: Negative for acute back or joint pain SKIN: Negative for rash NEURO: Negative for headaches, seizures, focal neurological deficits All other systems negative. VITAL SIGNS: BP Temp Pulse Resp SpO2 MENTAL STATUS EXAMINATION: Appearance: Appropriately groomed, appears stated age Behavior: Appropriately engaged Psychomotor: No psychomotor agitation Cognition Level of Consciousness: Awake and alert. No fluctuation in wakefulness. Orientation: Grossly oriented Memory: Intact Attention/Concentration: Good Fund of Knowledge: Able to demonstrate an awareness of current events. Mood: Sad Affect: Congruent to mood Speech/Language: Appropriate tone, prosody, [place], phonetics, and syntax Thought Form: Goal-directed. No loosening of associations. Thought Content: No delusions noted or endorsed. Perceptual Disturbances: Did not appear to respond to auditory stimuli. Safety: Suicidal Ideations: No (more content not included)... [facility] 02-05-2023 Instructions Magaly Alvarez APRN.CNP - 02/05/2023 3:24 PM EDT Chelsea Dykes, It was good to talk with you today. Below is a summary of the plan that we discussed during your appointment for reference. Of course, if you have any questions or concerns do not hesitate to reach out to me via a message or call. Best, Magaly Alvarez APRN.CNP PLAN AND FOLLOW UP: YOU SHOULD SEEK IMMEDIATE MEDICAL ATTENTION AT THE NEAREST EMERGENCY DEPARTMENT OR BY CALLING 911, IF ANY OF THE FOLLOWING OCCURS: - New or worsening thoughts of harming yourself (suicidal thoughts) or others (homicidal thoughts) - Not feeling safe at home or worrying about your ability to remain safe at home If you are having thoughts of harming yourself or others, then you can: - Call the National Suicide Hotline at 5-681-BIDDOSS ( ) or 7-783-611-TALK (5960) - Text 4HMUK to 141660 Medication Update: Prozac 20 mg - take 1 capsule once daily. 2. Continue Gabapentin, Venlafaxine, and Ativan at the same dose. Next appointment: February 22 at 11:30 am virtual -- Please call my nurse Jenifer at [phone] or send me a message in i2we with any questions or concerns between appointments. documented in this encounter [facility] 02-05-2023 History of Presen t illness Narrative Images from the original note were not included. PSYC FOLLOW UP - PSYCHIATRIC PROGRESS NOTE DIAGNOSIS: Generalized Anxiety Disorder Borderline Personality Disorder MDD, recurrent, moderate GAF: -60-51 Moderate symptoms or moderate difficulty in social, occupational or school functioning. TREATMENT PLAN: Restart Prozac to help with mood and anxiety symptoms. Consider lowering the dose of Venlafaxine at the next visit if he is able to tolerate Prozac. Continue Gabapentin and Venlafaxine at the same dose. Work on decreasing reliance on Ativan. Review skills from previous IOPs and practice them. Follow up in 2 weeks. Medication Update: Prozac 20 mg - take 1 capsule once daily. 2. Continue Gabapentin, Venlafaxine, and Ativan at the same dose. The effects and side effects of all the medications were reviewed in detail with the patient. He is in agreement with the treatment plan and aware to reach out with any questions, concerns, or worsening of symptoms prior to the next appointment. PDMP report was reviewed and found to be appropriate without any signs of misuse or diversion. CC: Follow up regarding mood and anxiety With the patient consent, visit was performed virtually. I have communicated my name and active licensure. The patient's identity and physical location were verified at the time of this visit. Either the patient or their legal treasury representative has been informed of the risks and benefits of -- and alternatives to -- treatment through a remote evaluation and consents to proceed with the evaluation remotely. HPI: Donis Ferrer is a 37 year old Male with a history of KATEI, MDD, and borderline personality disorder presenting today for follow-up. Date of last visit: 11/07/2022 Plan from last visit: Increase Gabapentin back to original dose as patient could not tolerate the decrease. Continue Effexor at the same dose. Continue working on reducing Ativan use. Start IOP at [facility] [place]. Patient needs to call for an intake. Follow up in 3 months. Today Donis shares that he is doing okay. The winter kind of messes with me a little bit . He feels that the change in the weather will be helpful. He went on a long walk yesterday and it helped his mood. The medications are supporting his anxiety well. He is concerned about depression. He has a hard time managing negativity. He is not motivated to do things around the house. He has to really push himself to do things that he doesn't want. Noticed it worsening since September 2022. He would like to give Prozac another chance. [place] that it helped his mood and enjoying things again. He continues to rely on Ativan to help with anxiety. Has been trying to reduce use. He shares that he has completed IOP in the past. The skills that he has learned have been helpful. We discussed bringing out the workbook again to help with refreshing and practicing the skills. Interval Progress: Slightly worse Risks and benefits of the medication, including any black box warnings, were discussed with the patient. Social History: See HPI PATIENT DATA: Generalized Anxiety Disorder Scale (KATIE-7) KATIE - 7 SCORES 09/04/2022 11/06/2022 02/05/2023 KATIE-7 Score 14 7 9 (0-4) minimal anxiety, (5-9) mild anxiety, (10-14) moderate anxiety, (15-21) severe anxiety Patient Health Questionnaire (PHQ-9) PHQ-9 09/04/2022 11/06/2022 02/05/2023 Score 18 13 11 (0-4) minimal depression, (5-9) mild depression, (10-14) moderate depression, (15-19) moderately severe depression, (20-27) severe depression ROS: General: Negative for fever, malaise, unintentional weight loss HEENT: Negative for recent changes in vision or hearing, no nasal drainage Respiratory: Negative for cough, wheezing or SOB Cardiovascular: Negative for chest pain GI: Negative for nausea, vomiting, change in bowel habits MUSCULOSKELETAL: Negative for acute back or joint pain SKIN: Negative for rash NEURO: Negative for headaches, seizures, focal neurological deficits All other systems negative. VITAL SIGNS: BP Temp Pulse Resp SpO2 MENTAL STATUS EXAMINATION: Appearance: Appropriately groomed, appears stated age Behavior: Appropriately engaged Psychomotor: No psychomotor agitation Cognition Level of Consciousness: Awake and alert. No fluctuation in wakefulness. Orientation: Grossly oriented Memory: Intact Attention/Concentration: Good Fund of Knowledge: Able to demonstrate an awareness of current events. Mood: Sad Affect: Congruent to mood Speech/Language: Appropriate tone, prosody, [place], phonetics, and syntax Thought Form: Goal-directed. No loosening of associations. Thought Content: No delusions noted or endorsed. Perceptual Disturbances: Did not appear to respond to auditory stimuli. Safety: Suicidal Ideations: No suicidal ideation, intent or plan. Homicidal Ideations: No homicidal ideation, intent or plan. Insight: Appropriate Judgment: Appropriate I spent a total of 28 minutes on the date of the service which included preparing to see the patient, [id number] patient care, completing clinical documentation, and counseling and educating the patient/family/caregiver, ordering medications/labs. Magaly Alvarez APRN.TUCKER February 05, 2023 3:05 PM This note was partially generated using [employer] voice recognition system. Note was reviewed for accuracy. There may be minor misspellings or grammar miscues with [employer] voice recognition. documented in this encounter [facility] 11-23-2022 Note HNO ID: [id number] Author: Jm Luo MD Service: ? Author Type: Physician Type: Progress Notes Filed: 11/23/2022 2:50 PM Note Text: This note was created using [employer]. Subjective Donis Ferrer is a 37 year old male. He was following regularly with mental health here and did not need refills. He stopped taking vitamin D. This had not been rechecked. He had resumed some day smoking and was also vaping. We reviewed risks. Review of Systems Constitutional: Negative. Respiratory: Negative. Cardiovascular: Negative. Psychiatric/Behavioral: Stable. ACTIVE PROBLEM LIST Tobacco Use Disorder Recurrent Major Depression in Partial Remission (Hcc) Dislocated Iol (Intraocular Lens) Vitamin D Deficiency Generalized Anxiety Disorder History of Substance Abuse (Hcc) Borderline Personality Disorder (Hcc) Obesity, Class I, Bmi 30-34.9 Current Outpatient Medications Medication Sig venlafaxine ER (EFFEXOR XR) 75 mg 24 hr capsule Take 1 capsule by mouth once daily. gabapentin (NEURONTIN) 400 mg capsule Take 1 capsule by mouth four times daily for 30 days. LORazepam (ATIVAN) 0.5 mg Take 1 tablet by mouth once daily as needed for up to 30 days. ergocalciferol 50,000 unit capsule (VITAMIN D2, DRISDOL) Take 1 capsule by mouth one time a week. No current facility-administered medications for this visit. Objective BP 118/76 (BP Site: Left Arm, BP Position: Sitting, BP Cuff Size: Large Adult) Pulse 88 Temp 36.5 ?C (97.7 ?F) (Temporal) Resp 16 Wt 116.1 kg (256 lb) BMI 34.72 kg/m? Physical Exam Constitutional: General: He is not in acute distress. Appearance: He is obese. Neurological: Mental Status: He is alert. Psychiatric: Mood and Affect: Mood normal. Behavior: Behavior normal. Assessment and Plan 1. Tobacco use disorder - ICD9: 305.1, ICD10: F17.200 (primary diagnosis) - Cessation encouraged. 2. Vitamin D deficiency - ICD9: 268.9, ICD10: E55.9 Do labs in 3 months. Restart supplement. - ERGOCALCIFEROL (VITAMIN D2) 1,250 MCG (50,000 UNIT) CAPSULE - BASIC METABOLIC PNL - VITAMIN D 25 HYDROXY Jm Luo MD [facility] [facility] History of Presen t illness Narrative This note was created using [employer]. Subjective Donis Ferrer is a 37 year old male. He was following regularly with mental health here and did not need refills. He stopped taking vitamin D. This had not been rechecked. He had resumed some day smoking and was also vaping. We reviewed risks. Review of Systems Constitutional: Negative. Respiratory: Negative. Cardiovascular: Negative. Psychiatric/Behavioral: Stable. ACTIVE PROBLEM LIST Tobacco Use Disorder Recurrent Major Depression in Partial Remission (Hcc) Dislocated Iol (Intraocular Lens) Vitamin D Deficiency Generalized Anxiety Disorder History of Substance Abuse (Hcc) Borderline Personality Disorder (Hcc) Obesity, Class I, Bmi 30-34.9 Current Outpatient Medications Medication Sig venlafaxine ER (EFFEXOR XR) 75 mg 24 hr capsule Take 1 capsule by mouth once daily. gabapentin (NEURONTIN) 400 mg capsule Take 1 capsule by mouth four times daily for 30 days. LORazepam (ATIVAN) 0.5 mg Take 1 tablet by mouth once daily as needed for up to 30 days. ergocalciferol 50,000 unit capsule (VITAMIN D2, DRISDOL) Take 1 capsule by mouth one time a week. No current facility-administered medications for this visit. Objective BP 118/76 (BP Site: Left Arm, BP Position: Sitting, BP Cuff Size: Large Adult) Pulse 88 Temp 36.5 C (97.7 F) (Temporal) Resp 16 Wt 116.1 kg (256 lb) BMI 34.72 kg/m Physical Exam Constitutional: General: He is not in acute distress. Appearance: He is obese. Neurological: Mental Status: He is alert. Psychiatric: Mood and Affect: Mood normal. Behavior: Behavior normal. Assessment and Plan 1. Tobacco use disorder - ICD9: 305.1, ICD10: F17.200 (primary diagnosis) - Cessation encouraged. 2. Vitamin D deficiency - ICD9: 268.9, ICD10: E55.9 Do labs in 3 months. Restart supplement. - ERGOCALCIFEROL (VITAMIN D2) 1,250 MCG (50,000 UNIT) CAPSULE - BASIC METABOLIC PNL - VITAMIN D 25 HYDROXY Jm Luo MD documented in this encounter [facility] 11-07-2022 Note HNO ID: [id number] Author: Magaly Alvarez APRN.OFFSET SECOND PRESS OPERATOR Service: ? Author Type: Nurse Practitioner Type: Progress Notes Filed: 11/07/2022 2:57 PM Note Text: PSYC FOLLOW UP - PSYCHIATRIC PROGRESS NOTE DIAGNOSIS: Generalized Anxiety Disorder MDD, recurrent, in partial remission Borderline Personality Disorder GAF: -80-71 If symptoms are present, they are transient and expectable reactions to psychosocial stressors TREATMENT PLAN: Increase Gabapentin back to original dose as patient could not tolerate the decrease. Continue Effexor at the same dose. Continue working on reducing Ativan use. Start IOP at [facility] [place]. Patient needs to call for an intake. Follow up in 3 months. The effects and side effects of all the medications were reviewed in detail with the patient. PDMP report was reviewed and found to be appropriate without any signs of misuse or diversion. Patient is in agreement with the treatment plan and aware to reach out with any questions, concerns, or worsening of symptoms prior to the next appointment. CC: Follow up regarding mood and anxiety With the patient consent, visit was performed virtually. HPI: Donis Ferrer is a 37 year old Male with a history of KATIE, MDD, and borderline personality disorder presenting today for follow-up. Date of last visit: 09/04/2022 Plan from last visit: Decrease Gabapentin to only 400 mg TID. Continue Effexor at the same dose. Utilize Ativan only as needed. Patient has been working on reducing his reliance on this medication. Schedule an appointment for individual psychotherapy. Start the IOP program at [facility] [place]. Follow up in 2 months. Today Donis shares that he has been alright. He has been studying religious deeply and had some weird experiences. Does not think it is related to mental health. He has been working on facing his fears. He has not started the IOP program yet as I have had a lot on my plate . He has been taking care of the house more and taking care of his mother. He has been focusing on working out more. Overall, he feels better and has to get on a better schedule. His irritability has improved with the use of mindfulness. He continues to work on reducing his Ativan use. He has been trying to decrease it more. Has had a a hard time decreasing the dose of Gabapentin and went ahead and increased it back to the original dose. He denies any major concerns with his physical health. No change in his appetite. Denies over eating or emotional eating. He enjoys playing video games. He has started learning [place] with the intention of traveling there. 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 He has been socializing with his neighbors more. Interval Progress: Slightly improved Risks and benefits of the medication, including any black box warnings, were discussed with the patient. Social History: See HPI PATIENT DATA: Generalized Anxiety Disorder Scale (KATIE-7) KATIE - 7 SCORES 07/13/2022 09/04/2022 11/06/2022 KATIE-7 Score 21 14 7 (0-4) minimal anxiety, (5-9) mild anxiety, (10-14) moderate anxiety, (15-21) severe anxiety Patient Health Questionnaire (PHQ-9) PHQ-9 09/01/2022 09/04/2022 11/06/2022 Score 21 18 13 (0-4) minimal depression, (5-9) mild depression, (10-14) moderate depression, (15-19) moderately severe depression, (20-27) severe depression ROS: See HPI General: Negative for fever, malaise, unintentional weight loss HEENT: Negative for recent changes in vision or hearing, no nasal drainage Respiratory: Negative for cough, wheezing or SOB Cardiovascular: Negative for chest pain GI: Negative for nausea, vomiting, change in bowel habits MUSCULOSKELETAL: Negative for acute back or joint pain SKIN: Negative for rash NEURO: Negative for headaches, seizures, focal neurological deficits All other systems negative. VITAL SIGNS: BP Temp Pulse Resp SpO2 MENTAL STATUS EXAMINATION: Appearance: Appropriately groomed, appears stated age Behavior: Appropriately engaged Psychomotor: No psychomotor agitation Cognition Level of Consciousness: Awake and alert. No fluctuation in wakefulness. Orientation: Grossly oriented Memory: Intact Attention/Concentration: Good Fund of Knowledge: Able to demonstrate an awareness of current events. Mood: Euthymic Affect: Congruent to mood Speech/Language: Appropriate tone, prosody, [place], phonetics, and syntax Thought Form: Goal-directed. No loosening of associations. Thought Content: No delusions noted or endorsed. Perceptual Disturbances: Did not appear to respond to auditory stimuli. Safety: Suicidal Ideations: No suicidal ideation, intent or plan. Homicidal Ideations: No homicidal ideation, intent or plan. Insight: Appropriate Judgment: Appropriate I spent a total of 28 minutes on the date of the service which included preparing to see the patient, [id number] (more content not included)... [facility] 11-07-2022 History of Presen t illness Narrative Images from the original note were not included. PSYC FOLLOW UP - PSYCHIATRIC PROGRESS NOTE DIAGNOSIS: Generalized Anxiety Disorder MDD, recurrent, in partial remission Borderline Personality Disorder GAF: -80-71 If symptoms are present, they are transient and expectable reactions to psychosocial stressors TREATMENT PLAN: Increase Gabapentin back to original dose as patient could not tolerate the decrease. Continue Effexor at the same dose. Continue working on reducing Ativan use. Start IOP at [facility] [place]. Patient needs to call for an intake. Follow up in 3 months. The effects and side effects of all the medications were reviewed in detail with the patient. PDMP report was reviewed and found to be appropriate without any signs of misuse or diversion. Patient is in agreement with the treatment plan and aware to reach out with any questions, concerns, or worsening of symptoms prior to the next appointment. CC: Follow up regarding mood and anxiety With the patient consent, visit was performed virtually. HPI: Donis Ferrer is a 37 year old Male with a history of KATIE, MDD, and borderline personality disorder presenting today for follow-up. Date of last visit: 09/04/2022 Plan from last visit: Decrease Gabapentin to only 400 mg TID. Continue Effexor at the same dose. Utilize Ativan only as needed. Patient has been working on reducing his reliance on this medication. Schedule an appointment for individual psychotherapy. Start the IOP program at [facility] [place]. Follow up in 2 months. Today Donis shares that he has been alright. He has been studying religious deeply and had some weird experiences. Does not think it is related to mental health. He has been working on facing his fears. He has not started the IOP program yet as I have had a lot on my plate . He has been taking care of the house more and taking care of his mother. He has been focusing on working out more. Overall, he feels better and has to get on a better schedule. His irritability has improved with the use of mindfulness. He continues to work on reducing his Ativan use. He has been trying to decrease it more. Has had a a hard time decreasing the dose of Gabapentin and went ahead and increased it back to the original dose. He denies any major concerns with his physical health. No change in his appetite. Denies over eating or emotional eating. He enjoys playing video games. He has started learning [place] with the intention of traveling there. 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 He has been socializing with his neighbors more. Interval Progress: Slightly improved Risks and benefits of the medication, including any black box warnings, were discussed with the patient. Social History: See HPI PATIENT DATA: Generalized Anxiety Disorder Scale (KATIE-7) KATIE - 7 SCORES 07/13/2022 09/04/2022 11/06/2022 KATIE-7 Score 21 14 7 (0-4) minimal anxiety, (5-9) mild anxiety, (10-14) moderate anxiety, (15-21) severe anxiety Patient Health Questionnaire (PHQ-9) PHQ-9 09/01/2022 09/04/2022 11/06/2022 Score 21 18 13 (0-4) minimal depression, (5-9) mild depression, (10-14) moderate depression, (15-19) moderately severe depression, (20-27) severe depression ROS: See HPI General: Negative for fever, malaise, unintentional weight loss HEENT: Negative for recent changes in vision or hearing, no nasal drainage Respiratory: Negative for cough, wheezing or SOB Cardiovascular: Negative for chest pain GI: Negative for nausea, vomiting, change in bowel habits MUSCULOSKELETAL: Negative for acute back or joint pain SKIN: Negative for rash NEURO: Negative for headaches, seizures, focal neurological deficits All other systems negative. VITAL SIGNS: BP Temp Pulse Resp SpO2 MENTAL STATUS EXAMINATION: Appearance: Appropriately groomed, appears stated age Behavior: Appropriately engaged Psychomotor: No psychomotor agitation Cognition Level of Consciousness: Awake and alert. No fluctuation in wakefulness. Orientation: Grossly oriented Memory: Intact Attention/Concentration: Good Fund of Knowledge: Able to demonstrate an awareness of current events. Mood: Euthymic Affect: Congruent to mood Speech/Language: Appropriate tone, prosody, [place], phonetics, and syntax Thought Form: Goal-directed. No loosening of associations. Thought Content: No delusions noted or endorsed. Perceptual Disturbances: Did not appear to respond to auditory stimuli. Safety: Suicidal Ideations: No suicidal ideation, intent or plan. Homicidal Ideations: No homicidal ideation, intent or plan. Insight: Appropriate Judgment: Appropriate I spent a total of 28 minutes on the date of the service which included preparing to see the patient, [id number] patient care, completing clinical documentation, and counseling and educating the patient/family/caregiver, ordering medications/labs. Magaly Alvarez APRN.CNP November 07, 2022 2:36 PM This note was partially generated using [employer] voice recognition system. Note was reviewed for accuracy. There may be minor misspellings or grammar miscues with [employer] voice recognition. documented in this encounter [facility] 09-04-2022 Note HNO ID: [id number] Author: Magaly Alvarez APRN.CNP Service: ? Author Type: Nurse Practitioner Type: Progress Notes Filed: 09/10/2022 10:46 PM Note Text: PSYC FOLLOW UP - PSYCHIATRIC PROGRESS NOTE DIAGNOSIS: Generalized Anxiety Disorder MDD, recurrent, moderate Borderline Personality Disorder GAF: -60-51 Moderate symptoms or moderate difficulty in social, occupational or school functioning. TREATMENT PLAN: Decrease Gabapentin to only 400 mg TID. Continue Effexor at the same dose. Utilize Ativan only as needed. Patient has been working on reducing his reliance on this medication. Schedule an appointment for individual psychotherapy. Start the IOP program at [facility] [place]. Follow up in 2 months. The effects and side effects of all the medications were reviewed in detail with the patient. Patient is in agreement with the treatment plan and aware to reach out with any questions, concerns, or worsening of symptoms prior to the next appointment. PDMP report was reviewed and found to be appropriate without any signs of misuse or diversion. CC: Follow up regarding mood and anxiety. With the patient consent, visit was performed virtually. HPI: Donis Ferrer is a 37 year old Male with a history of KATIE, MDD, and borderline personality disorder presenting today for follow-up. Date of last visit: 07/13/2022 Plan from last visit: Continue on the lower dose of Lamictal. Continue Effexor and Gabapentin at the same dose. Work on reducing the reliance on Ativan use. Schedule an appointment for individual psychotherapy. Follow up in 4 to 6 weeks. Today Donis shares that he has been feeling tired. He has been active doing projects around his house and exercising. He stopped taking Lamictal. He feels that his mood has not changed. He is not irritable or frustrated. He shares that his anxiety is better in someway. He does not notice it as much. Denies any side effects from the current dose of Effexor. He is utilizing Ativan only as needed. He is not experiencing panic symptoms. He is not waking up in the middle of the night with panic attacks like he was in the past. He has been riding his bike more. He is trying to be social with people in the neighborhood. He is in the process to schedule an appointment for individual psychotherapy. He has been thinking about doing the IOP at the [facility]. Interval Progress: Slightly improved Risks and benefits of the medication, including any black box warnings, were discussed with the patient. Social History: See HPI PATIENT DATA: Generalized Anxiety Disorder Scale (KATIE-7) KATIE - 7 SCORES 06/22/2022 07/13/2022 09/04/2022 KATIE-7 Score 7 21 14 (0-4) minimal anxiety, (5-9) mild anxiety, (10-14) moderate anxiety, (15-21) severe anxiety Patient Health Questionnaire (PHQ-9) PHQ-9 07/13/2022 09/01/2022 09/04/2022 Score 16 21 18 (0-4) minimal depression, (5-9) mild depression, (10-14) moderate depression, (15-19) moderately severe depression, (20-27) severe depression ROS: General: Negative for fever, malaise, unintentional weight loss HEENT: Negative for recent changes in vision or hearing, no nasal drainage Respiratory: Negative for cough, wheezing or SOB Cardiovascular: Negative for chest pain GI: Negative for nausea, vomiting, change in bowel habits MUSCULOSKELETAL: Negative for acute back or joint pain SKIN: Negative for rash NEURO: Negative for headaches, seizures, focal neurological deficits All other systems negative. VITAL SIGNS: BP Temp Pulse Resp SpO2 MENTAL STATUS EXAMINATION: Appearance: Appropriately groomed, appears stated age Behavior: Appropriately engaged Psychomotor: No psychomotor agitation Cognition Level of Consciousness: Awake and alert. No fluctuation in wakefulness. Orientation: Grossly oriented Memory: Intact Attention/Concentration: Good Fund of Knowledge: Able to demonstrate an awareness of current events. Mood: Euthymic Affect: Congruent to mood Speech/Language: Appropriate tone, prosody, [place], phonetics, and syntax Thought Form: Goal-directed. No loosening of associations. Thought Content: No delusions noted or endorsed. Perceptual Disturbances: Did not appear to respond to auditory stimuli. Safety: Suicidal Ideations: No suicidal ideation, intent or plan. Homicidal Ideations: No homicidal ideation, intent or plan. Insight: Appropriate Judgment: Appropriate I spent a total of 28 minutes on the date of the service which included preparing to see the patient, [id number] patient care, completing clinical documentation, and counseling and educating the patient/family/caregiver, ordering medications/labs. Magaly Alvarez, STEM ASSEMBLER.OFFSET SECOND PRESS OPERATOR September 04, 2022 3:01 PM This note was partially generated using [employer] voice recognition system. Note was reviewed for accuracy. There may be minor misspellings or grammar miscues with [employer] recognitio (more content not included)... [facility] 09-04-2022 History of Presen t illness Narrative Images from the original note were not included. PSYC FOLLOW UP - PSYCHIATRIC PROGRESS NOTE DIAGNOSIS: Generalized Anxiety Disorder MDD, recurrent, moderate Borderline Personality Disorder GAF: -60-51 Moderate symptoms or moderate difficulty in social, occupational or school functioning. TREATMENT PLAN: Decrease Gabapentin to only 400 mg TID. Continue Effexor at the same dose. Utilize Ativan only as needed. Patient has been working on reducing his reliance on this medication. Schedule an appointment for individual psychotherapy. Start the IOP program at [facility] [place]. Follow up in 2 months. The effects and side effects of all the medications were reviewed in detail with the patient. Patient is in agreement with the treatment plan and aware to reach out with any questions, concerns, or worsening of symptoms prior to the next appointment. PDMP report was reviewed and found to be appropriate without any signs of misuse or diversion. CC: Follow up regarding mood and anxiety. With the patient consent, visit was performed virtually. HPI: Donis Ferrer is a 37 year old Male with a history of KATIE, MDD, and borderline personality disorder presenting today for follow-up. Date of last visit: 07/13/2022 Plan from last visit: Continue on the lower dose of Lamictal. Continue Effexor and Gabapentin at the same dose. Work on reducing the reliance on Ativan use. Schedule an appointment for individual psychotherapy. Follow up in 4 to 6 weeks. Today Donis shares that he has been feeling tired. He has been active doing projects around his house and exercising. He stopped taking Lamictal. He feels that his mood has not changed. He is not irritable or frustrated. He shares that his anxiety is better in someway. He does not notice it as much. Denies any side effects from the current dose of Effexor. He is utilizing Ativan only as needed. He is not experiencing panic symptoms. He is not waking up in the middle of the night with panic attacks like he was in the past. He has been riding his bike more. He is trying to be social with people in the neighborhood. He is in the process to schedule an appointment for individual psychotherapy. He has been thinking about doing the IOP at the [facility]. Interval Progress: Slightly improved Risks and benefits of the medication, including any black box warnings, were discussed with the patient. Social History: See HPI PATIENT DATA: Generalized Anxiety Disorder Scale (KATIE-7) KATIE - 7 SCORES 06/22/2022 07/13/2022 09/04/2022 KATIE-7 Score 7 21 14 (0-4) minimal anxiety, (5-9) mild anxiety, (10-14) moderate anxiety, (15-21) severe anxiety Patient Health Questionnaire (PHQ-9) PHQ-9 07/13/2022 09/01/2022 09/04/2022 Score 16 21 18 (0-4) minimal depression, (5-9) mild depression, (10-14) moderate depression, (15-19) moderately severe depression, (20-27) severe depression ROS: General: Negative for fever, malaise, unintentional weight loss HEENT: Negative for recent changes in vision or hearing, no nasal drainage Respiratory: Negative for cough, wheezing or SOB Cardiovascular: Negative for chest pain GI: Negative for nausea, vomiting, change in bowel habits MUSCULOSKELETAL: Negative for acute back or joint pain SKIN: Negative for rash NEURO: Negative for headaches, seizures, focal neurological deficits All other systems negative. VITAL SIGNS: BP Temp Pulse Resp SpO2 MENTAL STATUS EXAMINATION: Appearance: Appropriately groomed, appears stated age Behavior: Appropriately engaged Psychomotor: No psychomotor agitation Cognition Level of Consciousness: Awake and alert. No fluctuation in wakefulness. Orientation: Grossly oriented Memory: Intact Attention/Concentration: Good Fund of Knowledge: Able to demonstrate an awareness of current events. Mood: Euthymic Affect: Congruent to mood Speech/Language: Appropriate tone, prosody, [place], phonetics, and syntax Thought Form: Goal-directed. No loosening of associations. Thought Content: No delusions noted or endorsed. Perceptual Disturbances: Did not appear to respond to auditory stimuli. Safety: Suicidal Ideations: No suicidal ideation, intent or plan. Homicidal Ideations: No homicidal ideation, intent or plan. Insight: Appropriate Judgment: Appropriate I spent a total of 28 minutes on the date of the service which included preparing to see the patient, [id number] patient care, completing clinical documentation, and counseling and educating the patient/family/caregiver, ordering medications/labs. Magaly Alvarez APRN.CNP September 04, 2022 3:01 PM This note was partially generated using [employer] voice recognition system. Note was reviewed for accuracy. There may be minor misspellings or grammar miscues with [employer] voice recognition. documented in this encounter [facility] 09-01-2022 Note HNO ID: [id number] Author: Magaly Alvarez APRN.CNP Service: ? Author Type: Nurse Practitioner Type: Progress Notes Filed: 09/01/2022 2:46 PM Note Text: Patient requested to reschedule as he thought the appointment was at a different time and logged in early. He is rescheduled for an appointment this coming Sunday at 3 pm. [facility] 09-01-2022 History of Presen t illness Narrative Patient requested to reschedule as he thought the appointment was at a different time and logged in early. He is rescheduled for an appointment this coming Sunday at 3 pm. documented in this encounter [facility] 08-07-2022 Miscellaneous Notes Patient did not need additional medication at this time, unless advised by the provider. He only wanted to update the provider on his current mediation regimen. Message to call office. Message to call office. The patient called to inform his provider that he has ended his prescription of LAMICTAL a few days ago. He is unsure of the exact date. He reports some increase in irritability. He states that he has also been able to decrease his gabapentin and ativan. He is able to go a day or two without those medications with mild complications. He states that he feels ok but is having a hard time expression. documented in this encounter [facility] 07-14-2022 Miscellaneous Notes Patient needs refill for his effexor.Confer patient to the Main [employer]arf[employer] Clerk for Behavioral Health Provider oracle hyperion consultant. documented in this encounter [facility] 07-14-2022 Miscellaneous Notes Patient of Magaly Alvarez calling for refill of Effexor. Patient requesting to have medication sent to [facility]. Call conferenced to CHELSEA Walker for paging oracle hyperion consultant physician. documented in this encounter [facility] 07-13-2022 History of Presen t illness Narrative Images from the original note were not included. PSYC FOLLOW UP - PSYCHIATRIC PROGRESS NOTE DIAGNOSIS: Generalized Anxiety Disorder MDD, recurrent, moderate Borderline Personality Disorder GAF: -60-51 Moderate symptoms or moderate difficulty in social, occupational or school functioning. TREATMENT PLAN: Continue on the lower dose of Lamictal. Continue Effexor and Gabapentin at the same dose. Work on reducing the reliance on Ativan use. Schedule an appointment for individual psychotherapy. Follow up in 4 to 6 weeks. The effects and side effects of all the medications were reviewed in detail with the patient. He is aware of the rash side effect related to Lamictal. Patient is in agreement with the treatment plan and aware to reach out with any questions, concerns, or worsening of symptoms prior to the next appointment. PDMP report was reviewed and found to be appropriate without any signs of misuse or diversion. CC: Follow up regarding mood and anxiety. With the patient consent, visit was performed virtually. HPI: Donis Ferrer is a 37 year old Male with a history of KATIE, MDD, and borderline personality disorder presenting today for follow-up. Date of last visit: 06/22/2022 Plan from last visit: Discontinue Prozac as patient has been able to tolerate the decrease in Effexor. Continue Effexor at the 75 mg. Continue Lamictal at the same dose. Work on decreasing reliance on Ativan to manage his anxiety. Continue Gabapentin at the same dose. Consider decreasing Gabapentin dose if patient tends to do well at that next appointment with his anxiety. Encouraged patient to read the book Limitless as patient would like to focus on more holistic ways to manage his anxiety and mood concerns. Encouraged to schedule an appointment for individual psychotherapy. Follow up in 3 weeks. It is important to note that patient reached out on 06/23/2022 to request a decrease in Lamictal dose. We discussed reducing it to no less than 100 mg. Today Donis shares that he has been doing okay on the decreased doses of his medications. Shares that he is getting used to that. He is hopeful in lowering his other medications. He has been working on a home improvement project in his basement. His physical activity has increased. He has been getting himself out of the house and engaged in the real world more. 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 He has contacted the [employer] and is planning on doing an activity tomorrow. Shares that today his anxiety was bad at the beginning of the day. Was able to work through it and didn't let this discourage him. Anxiety did get better later in the day. Has noticed some episodes of irritability but did not experience an episode of outburst. He has started to listen to the audio book for limitless. Has not rescheduled an appointment for individual psychotherapy. He wants to be stronger and be able to take care of his mother and other people. We discussed the importance of working on setting small goals for himself. He has been cleaning and taking more care of the house. He has been helping his mother more. He would like to get a driving license and be more social. He has been trying to detach more from digital things. He feels that he is on the right track. Interval Progress: Slightly improved Risks and benefits of the medication, including any black box warnings, were discussed with the patient. Social History: See HPI PATIENT DATA: Generalized Anxiety Disorder Scale (KATIE-7) KATIE - 7 SCORES 06/01/2022 06/22/2022 07/13/2022 KATIE-7 Score 21 7 21 (0-4) minimal anxiety, (5-9) mild anxiety, (10-14) moderate anxiety, (15-21) severe anxiety Patient Health Questionnaire (PHQ-9) PHQ-9 06/01/2022 06/22/2022 07/13/2022 Score 15 9 16 (0-4) minimal depression, (5-9) mild depression, (10-14) moderate depression, (15-19) moderately severe depression, (20-27) severe depression ROS: General: Negative for fever, malaise, unintentional weight loss HEENT: Negative for recent changes in vision or hearing, no nasal drainage Respiratory: Negative for cough, wheezing or SOB Cardiovascular: Negative for chest pain GI: Negative for nausea, vomiting, change in bowel habits MUSCULOSKELETAL: Negative for acute back or joint pain SKIN: Negative for rash NEURO: Negative for headaches, seizures, focal neurological deficits All other systems negative. VITAL SIGNS: BP Temp Pulse Resp SpO2 MENTAL STATUS EXAMINATION: Appearance: Appropriately groomed, appears stated age Behavior: Appropriately engaged Psychomotor: No psychomotor agitation Cognition Level of Consciousness: Awake and alert. No fluctuation in wakefulness. Orientation: Grossly oriented Memory: Intact Attention/Concentration: Good Fund of Knowledge: Able to demonstrate an awareness of current events. Mood: Sad, mildly anxious Affect: Congruent to mood Speech/Language: Appropriate tone, prosody, [place], phonetics, and syntax Thought Form: Goal-directed. No loosening of associations. Thought Content: No delusions noted or endorsed. Perceptual Disturbances: Did not appear to respond to auditory stimuli. Safety: Suicidal Ideations: No suicidal ideation, intent or plan. Homicidal Ideations: No homicidal ideation, intent or plan. Insight: Appropriate Judgment: Appropriate I spent a total of 38 minutes on the date of the service which included preparing to see the patient, [id number] patient care, completing clinical documentation, and counseling and educating the patient/family/caregiver, ordering medications/labs. Magaly Alvarez APRN.TUCKER July 13, 2022 8:30 PM This note was partially generated using [employer] voice recognition system. Note was reviewed for accuracy. There may be minor misspellings or grammar miscues with [employer] voice recognition. documented in this encounter [facility] 06-29-2022 Miscellaneous Notes Patient has been identified by name and date of : Yes Pharmacy phones for refill(s): Requested Prescriptions Pending Prescriptions Disp Refills ergocalciferol 50,000 unit capsule (VITAMIN D2, DRISDOL) 12 capsule 0 Sig: Take 1 capsule by mouth one time a week. Date of last office visit with pcp: 06/19/2022 Future appt: 11/01/2022 Last 2 Encounter Wt Readings: Date: Wt: 06/19/2022 106.1 kg (234 lb) 01/02/2022 109.8 kg (242 lb) Previous labs/tests for medication: Blood Pressure: BUN (mg/dL) Date Value 12/04/2019 13 Sodium (mmol/L) Date Value 12/04/2019 141 Last 1 Encounter BP Readings: Date: BP: 06/19/2022 116/72 Liver Function: ALT (U/L) Date Value 12/04/2019 17 AST (U/L) Date Value 12/04/2019 18 Please advise. Thank you. Angela Montiel RN documented in this encounter [facility] 06-22-2022 History of Presen t illness Narrative Images from the original note were not included. PSYC FOLLOW UP - PSYCHIATRIC PROGRESS NOTE DIAGNOSIS: Generalized Anxiety Disorder MDD, recurrent, moderate Borderline Personality Disorder GAF: -60-51 Moderate symptoms or moderate difficulty in social, occupational or school functioning. TREATMENT PLAN: Discontinue Prozac as patient has been able to tolerate the decrease in Effexor. Continue Effexor at the 75 mg. Continue Lamictal at the same dose. Work on decreasing reliance on Ativan to manage his anxiety. Continue Gabapentin at the same dose. Consider decreasing Gabapentin dose if patient tends to do well at that next appointment with his anxiety. Encouraged patient to read the book Limitless as patient would like to focus on more holistic ways to manage his anxiety and mood concerns. Encouraged to schedule an appointment for individual psychotherapy. Follow up in 3 weeks. The effects and side effects of all the medications were reviewed in detail with the patient. He is aware of the rash side effect associated with Lamictal. Patient is in agreement with the treatment plan and aware to reach out with any questions, concerns, or worsening of symptoms prior to the next appointment. CC: Follow up regarding mood and anxiety With the patient consent, visit was performed virtually. HPI: Donis Ferrer is a 37 year old Male with a history of KATIE, MDD, and borderline personality disorder presenting today for follow-up. Date of last visit: 06/01/2022 Plan from last visit: Cross titrate from Venlafaxine to Prozac to address his anxiety and panic symptoms. Continue Lamictal and Gabapentin at the same dose. Utilize Ativan as needed for increased episodes of anxiety. Work on reducing reliance on Ativan. Encouraged patient to schedule an appointment for individual psychotherapy. Follow up in 2 weeks. Today Donis shares that he is doing well. He shares that he has only been taking Effexor 75 mg dose. He has noticed that his anxiety, focus, and concentration has improved. He has also been attributing improvement in his anxiety by listening to self-help books and completing behavior management courses. Discussed reading a book called Limitless by Shaquille Aiken. He would like to focus more on the behavioral component. He has responsibility of taking care of his mother. He has been working on his diet and helping his mother with hers too. He does verbalize that he tends to be hard on himself and his mother at times regarding her health. Prozac helped him tolerate the decrease in Effexor dose. He has not been taking it anymore. He tries to take Ativan no more than once a day. In the past he has been able to take only 1 Ativan a week. He is motivated to get to that place again. He enjoys spending time with his cat Olinda. He has 3 cats in total. He had an intake for a therapy appointment last Sunday but he missed the appointment. He is going to call them and reschedule. Interval Progress: Slightly improved Risks and benefits of the medication, including any black box warnings, were discussed with the patient. Social History: See HPI PATIENT DATA: Generalized Anxiety Disorder Scale (KATIE-7) KATIE - 7 SCORES 04/14/2022 06/01/2022 06/22/2022 AKTIE-7 Score 14 21 7 (0-4) minimal anxiety, (5-9) mild anxiety, (10-14) moderate anxiety, (15-21) severe anxiety Patient Health Questionnaire (PHQ-9) PHQ-9 04/14/2022 06/01/2022 06/22/2022 Score 19 15 9 (0-4) minimal depression, (5-9) mild depression, (10-14) moderate depression, (15-19) moderately severe depression, (20-27) severe depression ROS: General: Negative for fever, malaise, unintentional weight loss HEENT: Negative for recent changes in vision or hearing, no nasal drainage Respiratory: Negative for cough, wheezing or SOB Cardiovascular: Negative for chest pain GI: Negative for nausea, vomiting, change in bowel habits MUSCULOSKELETAL: Negative for acute back or joint pain SKIN: Negative for rash NEURO: Negative for headaches, seizures, focal neurological deficits All other systems negative. VITAL SIGNS: BP Temp Pulse Resp SpO2 MENTAL STATUS EXAMINATION: Appearance: Appropriately groomed, appears stated age Behavior: Appropriately engaged Psychomotor: No psychomotor agitation Cognition Level of Consciousness: Awake and alert. No fluctuation in wakefulness. Orientation: Grossly oriented Memory: Intact Attention/Concentration: Good Fund of Knowledge: Able to demonstrate an awareness of current events. Mood: Anxious Affect: Congruent to mood Speech/Language: Appropriate tone, prosody, [place], phonetics, and syntax Thought Form: Goal-directed. No loosening of associations. Thought Content: No delusions noted or endorsed. Perceptual Disturbances: Did not appear to respond to auditory stimuli. Safety: Suicidal Ideations: No suicidal ideation, intent or plan. Homicidal Ideations: No homicidal ideation, intent or plan. Insight: Appropriate Judgment: Appropriate I spent a total of 38 minutes on the date of the service which included preparing to see the patient, [id number] patient care, completing clinical documentation, and counseling and educating the patient/family/caregiver, ordering medications/labs. Magaly Alvarez APRN.CNP June 22, 2022 10:38 AM This note was partially generated using [employer] voice recognition system. Note was reviewed for accuracy. There may be minor misspellings or grammar miscues with [employer] voice recognition. documented in this encounter [facility] 06-19-2022 History of Presen t illness Narrative This note was created using [employer]. Subjective Patient presents with: ER F/U Donis Ferrer is a 37 year old male who made the appointment with respiratory complaints but was mainly here for anxiety. He was in the ER early this morning for a panic attack. He felt better. He was anxious about telling me he had been experimenting with dextrometorphan on his own 100 mg once daily as needed. He could not specify why he started this 3 months ago, and he was anxious about divulging this because of his history. However, he genuinely felt this has helped his mental health and there did not seem to be any adverse effects. He felt he was using less lorazepam, and he was learning to be more responsible in caring for his elderly mother. His focus has improved. He followed with Magaly for mental health and was encouraged to share this with her. We agreed he was not to accelerate use of dextrometorphan, which has potential for adverse effects. Review of Systems Constitutional: Negative. HENT: Negative. Respiratory: Negative. Gastrointestinal: Negative. Psychiatric/Behavioral: Her HPI ACTIVE PROBLEM LIST Tobacco Use Disorder Recurrent Major Depression in Partial Remission (Hcc) Dislocated Iol (Intraocular Lens) Vitamin D Deficiency Generalized Anxiety Disorder History of Substance Abuse (Hcc) Borderline Personality Disorder (Hcc) Obesity, Class I, Bmi 30-34.9 Current Outpatient Medications Medication Sig LORazepam (ATIVAN) 0.5 mg Take 1 tablet by mouth once daily as needed for up to 30 days. FLUoxetine (PROZAC) 20 mg capsule Take 1 capsule by mouth once daily. venlafaxine ER (EFFEXOR XR) 75 mg 24 hr capsule Take 1 capsule by mouth once daily. lamoTRIgine (LAMICTAL) 200 mg tablet TAKE 1 TABLET BY MOUTH DAILY gabapentin (NEURONTIN) 400 mg capsule TAKE 1 CAPSULE BY MOUTH FOUR TIMES A DAY ergocalciferol 50,000 unit capsule (VITAMIN D2, DRISDOL) Take 1 capsule by mouth one time a week. No current facility-administered medications for this visit. Objective BP 116/72 (BP Site: Right Arm, BP Position: Sitting, BP Cuff Size: Large Adult) Pulse 84 Temp 36.1 C (97 F) (Temporal) Resp 16 Wt 106.1 kg (234 lb) BMI 31.74 kg/m Physical Exam Constitutional: General: He is not in acute distress. Appearance: He is not ill-appearing. Pulmonary: Effort: Pulmonary effort is normal. Neurological: Mental Status: He is alert. Psychiatric: Attention and Perception: Attention normal. Mood and Affect: Mood normal. Affect is labile. Speech: Speech normal. Behavior: Behavior normal. Thought Content: Thought content normal. Comments: He became emotional after I informed him I did not see a major issue with taking over the counter DM at usual doses. Assessment and Plan 1. Generalized anxiety disorder - ICD9: 300.02, ICD10: F41.1 (primary diagnosis) Stable. Follow up with [facility] [facility] as scheduled. 2. Obesity, Class I, BMI 30-34.9 - ICD9: 278.00, ICD10: E66.9 Weight decreasing I spent at least 25 minutes all for discussion. Jm Luo MD documented in this encounter [facility] 06-19-2022 Miscellaneous Notes Summary: Sore Throat, Ear Acge, Eye issue. He received a 7 pm appt this evening Reason for Disposition Earache also present Answer Assessment - Initial Assessment Questions 1. ONSET: With in the past 24 hrs, sore throat and right earache started 2. SEVERITY: Mild 3. STREP EXPOSURE: Denies 4. VIRAL SYMPTOMS: Denies 5. FEVER: Denies 6. PUS ON THE TONSILS: none seen 7. OTHER SYMPTOMS: He is also concerned that he normally can't focus with his vision nor control his eye movements but with in 24 hrs all that has improved. He also said he went to [place] [facility] last night for a panic attack. He said he will not be able to sleep tonight worrying about why his vision has improved.. Protocols used: Sore [id number] documented in this encounter [facility] 06-08-2022 Miscellaneous Notes Pharmacy notified ok to fill rx early. Detailed message left for the patient as well. Please contact pharmacy and request that they fill the medication early. A new prescription was sent by this provider yesterday as patient is cross-tapering from Venlafaxine to Prozac and was experiencing some withdrawal symptoms. Patient mother Moon calling [facility] pharmacy will not fill son Lorazepam rx. Last rx was filled 05/12/2022 pharmacy said it is to soon to fill. Mother asking if office could call pharmacy and allow refill today so rx could be delivered today please. They have no transportation to get rx at pharmacy. documented in this encounter [facility] 06-07-2022 Miscellaneous Notes Addressed in a separate phone encounter. documented in this encounter [facility] 06-04-2022 Miscellaneous Notes Addended by: RADHA PIZARRO on: 06/04/2022 05:40 PM Modules accepted: Orders PSYCHIATRY PLAN OF CARE Spoke with Mr. Ferrer who states he is out of Ativan and is quite worried about having panic attack which he will be unable to control without a prescription. Patient denies SI/HI. Patient initially quite distressed on phone given lack of refills however does acknowledge that he will likely not require this medication until he can speak with his primary provider. Told patient that I will provide 2 doses of Ativan .5mg PO until he can speak with his doctor tomorrow. Refills requested as below. Transmitted electronically. PDMP website checked and validated. All prescriptions have been APPROPRIATELY filled. No suspicious activity was identified. 06/04/2022 by Radha Pizarro MD Pending Prescriptions Disp Refills LORAZEPAM 0.5 MG TABLET 2 tablet 0 Sig: Take 1 tablet by mouth every 8 hours for 2 doses. CLAUDE Class: C-IV Future Appointments Date Time Provider Department Center 06/22/2022 10:30 AM Magaly Alvarez APRN.[facility] 11/01/2022 3:20 PM Jm Luo MD [facility] Radha Pizarro MD, PGY-2 06/04/2022 5:38 PM documented in this encounter [facility] 05-31-2022 Miscellaneous Notes Pharmacy electronically requesting refill(s): [facility] Last appt: 04/14/22 Upcoming appt: 06/01/22 Pending Prescriptions Disp Refills LAMOTRIGINE 200 MG TABLET 30 tablet 1 Sig: TAKE 1 TABLET BY MOUTH DAILY ARACELY: Yes GABAPENTIN 400 MG CAPSULE 120 capsule 1 Sig: TAKE 1 CAPSULE BY MOUTH FOUR TIMES A DAY ARACELY: Yes Please review and process accordingly. Thank you! Amie Salguero documented in this encounter [facility] 05-31-2022 Miscellaneous Notes Pharmacy electronically requesting refill(s): [facility] Last appt: 04/14/22 Upcoming appt: 06/01/22 Pending Prescriptions Disp Refills VENLAFAXINE ER 150 MG CAPSULE,EXTENDED RELEASE 24 HR 30 capsule 1 Sig: TAKE 1 CAPSULE BY MOUTH DAILY ARACELY: Yes Please review and process accordingly. Thank you! Amie Salguero documented in this encounter [facility] 2022 History of Presen t illness Narrative This note was created using [employer]. SUBJECTIVE Donis Ferrer is a 37 year old male who presents with 2 days of symptoms that are stable. Symptoms include: Fever (?100.4F): No or Chills: No Cough: Yes Shortness of breath: No or Difficulty breathing: No Fatigue: No Muscle aches: Yes Headache: No New loss of smell or taste: No Sore throat: Yes Nasal congestion: Yes or Rhinorrhea: No Nausea: No or Vomiting: No Diarrhea: No OTC meds/remedies that patient has tried: none.. High risk category assessment Morbid Obesity (BMI>40) Exposures: Sick contacts? No Family or close contacts with confirmed/probable COVID-19 in last 14 days? No He reports that he quit smoking about 17 months ago. His smoking use included cigarettes. He has a 20.00 pack-year smoking history. He has never used smokeless tobacco. His anxiety was better, and he was following with our mental health [facility]PER[facility]. ACTIVE PROBLEM LIST Tobacco Use Disorder Recurrent Major Depression in Partial Remission (Hcc) Dislocated Iol (Intraocular Lens) Vitamin D Deficiency Generalized Anxiety Disorder History of Substance Abuse (Hcc) Obesity, Class II, Bmi 35-39.9 Borderline Personality Disorder (Hcc) Current Outpatient Medications Medication Sig venlafaxine ER (EFFEXOR XR) 150 mg 24 hr capsule Take 1 capsule by mouth once daily. lamoTRIgine (LAMICTAL) 200 mg tablet Take 1 tablet by mouth once daily. gabapentin (NEURONTIN) 400 mg capsule Take 1 capsule by mouth four times daily for 30 days. LORazepam (ATIVAN) 1 mg tablet Take 0.5 tablets by mouth every 8 hours as needed (panic attacks) for up to 90 days. #20/month. Do not start before March 15, 2022. ergocalciferol 50,000 unit capsule (VITAMIN D2, DRISDOL) Take 1 capsule by mouth one time a week. No current facility-administered medications for this visit. BP (P) 112/72 (BP Site: Left Arm, BP Position: Sitting, BP Cuff Size: Large Adult) Pulse (P) 96 Temp (P) 36.1 C (96.9 F) (Temporal) Resp (P) 16 Wt (P) 107.5 kg (237 lb) BMI (P) 32.14 kg/m PHYSICAL EXAM: General Appearance: Obese, NAD. Nose/Sinuses: No drainage, mild congestion. Oropharynx: Moist, no exudate. Lungs: Lungs clear to auscultation. No wheezing, rhonchi, rales.. Heart: RRR without murmur, gallop, or rubs. No ectopy. Extremities: No edema. Mood, behavior within normal. ASSESSMENT/PLAN (J06.9) Viral upper respiratory tract infection (primary encounter diagnosis) (F41.1) Generalized anxiety disorder - COVID swab collected at time of office visit - Discussed symptom monitoring and supportive care - Red flag symptoms requiring follow up discussed This patient encounter involved the screening or treatment of novel coronavirus infection (COVID-19). Jm Luo MD documented in this encounter [facility] 04-14-2022 History of Presen t illness Narrative Images from the original note were not included. PSYC FOLLOW UP - PSYCHIATRIC PROGRESS NOTE DIAGNOSIS: 1. Generalized Anxiety Disorder 2. MDD, recurrent, moderate 3. Borderline personality disorder - patient is accepting of this diagnosis. GAF: -70-61 Some mild symptoms or some difficulty in social, occupational, or school functioning, but generally functioning pretty well. TREATMENT PLAN: 1. Increase Venlafaxine to help with anxiety symptoms. 2. Continue Lamictal at the same dose. 3. Continue Gabapentin at the same dose. Consider decreasing the dose to TID if anxiety improves more with the increase in Venlafaxine. 4. Continue to work on reducing reliance on Ativan use. 5. Encouraged patient to schedule an appointment for individual psychotherapy. 6. Encouraged patient to work on incorporating more movement and exercise in his daily schedule. 7. Follow up in 4 weeks. The effects and side effects of all the medications were reviewed in detail with the patient. He is aware of the rash side effect associated with Lamictal. Patient is in agreement with the treatment plan. He is aware to reach out with any questions, concerns, or worsening of symptoms prior to the next appointment. PDMP report was reviewed and found to be appropriate without any signs of misuse or diversion. CC: Follow up regarding mood and anxiety With the patient consent, visit was performed virtually. HPI: Donis Ferrer is a 36 year old Male with a history of KATIE, MDD, and borderline personality disorder presenting today for follow-up. Date of last visit: 02/10/2022 Plan from last visit: 8. Increase Venlafaxine to help with anxiety symptoms. 9. Continue Lamictal at the same dose. 10. Continue Gabapentin at the same dose. Consider decreasing the dose to TID if anxiety improves more with the increase in Venlafaxine. 11. Continue to work on reducing reliance on Ativan use. 12. Follow up in 4 weeks. Today Donis shares that he is getting better in dealing with the anxiety. He has been able to reduce the reliance on Ativan. Continues to struggle with feelings of depression. Has lack of motivation. Feels that he has had more control of managing his anxiety. Denies any side effects of Venlafaxine. Willing to try a higher dose to help with anxiety. Denies change in sleep or appetite. Shares that he has not needed to use the Ativan 0.5 mg every day. Has been able able to reduce it to every other day. Verbalizes that he has been involved in some drama on his social media channel. Continues to take his Gabapentin 4 times a day. He has finished group therapy for DBT. He has not started individual psychotherapy yet. He was engaged in doing a core workout but stopped. With the weather improving, he is thinking about going for a walk. He has done yoga in the past. We dicussed restarting that. Interval Progress: Slightly improved Risks and benefits of the medication, including any black box warnings, were discussed with the patient. Social History: See HPI PATIENT DATA: Generalized Anxiety Disorder Scale (KATIE-7) KATIE - 7 SCORES 01/06/2022 02/10/2022 04/14/2022 KATIE-7 Score 19 17 14 (0-4) minimal anxiety, (5-9) mild anxiety, (10-14) moderate anxiety, (15-21) severe anxiety Patient Health Questionnaire (PHQ-9) PHQ-9 01/06/2022 02/10/2022 04/14/2022 Score 15 16 19 (0-4) minimal depression, (5-9) mild depression, (10-14) moderate depression, (15-19) moderately severe depression, (20-27) severe depression ROS: General: Negative for fever, malaise, unintentional weight loss HEENT: Negative for recent changes in vision or hearing, no nasal drainage Respiratory: Negative for cough, wheezing or SOB Cardiovascular: Negative for chest pain GI: Negative for nausea, vomiting, change in bowel habits MUSCULOSKELETAL: Negative for acute back or joint pain SKIN: Negative for rash NEURO: Negative for headaches, seizures, focal neurological deficits All other systems negative. VITAL SIGNS: None obtained due to virtual visit BP Temp Pulse Resp SpO2 MENTAL STATUS EXAMINATION: Appearance: Appropriately groomed, appears stated age Behavior: Appropriately engaged Psychomotor: No psychomotor agitation Cognition Level of Consciousness: Awake and alert. No fluctuation in wakefulness. Orientation: Grossly oriented Memory: Intact Attention/Concentration: Good Fund of Knowledge: Able to demonstrate an awareness of current events. Mood: Anxious Affect: Congruent to mood Speech/Language: Appropriate tone, prosody, [place], phonetics, and syntax Thought Form: Goal-directed. No loosening of associations. Thought Content: No delusions noted or endorsed. Perceptual Disturbances: Did not appear to respond to auditory stimuli. Safety: Suicidal Ideations: No suicidal ideation, intent or plan. Homicidal Ideations: No homicidal ideation, intent or plan. Insight: Appropriate Judgment: Appropriate I spent a total of 28 minutes on the date of the service which included preparing to see the patient, [id number] patient care, completing clinical documentation, and counseling and educating the patient/family/caregiver, ordering medications/labs. Magaly Alvarez APRN.TUCKER April 14, 2022 4:05 PM documented in this encounter [facility] 04-10-2022 Note HNO ID: [id number] Author: Kristen Marrero [facility] Service: Behavioral Health IOP (Intensive Outpatient Program) Author Type: Therapist Type: Progress Notes Filed: 04/10/2022 5:22 PM Note Text: Summary: No Show *This service is provided virtually via i2we/opendorse. DBT SKILLS WEEKLY GROUP (OUTPATIENT PROGRAM) PROGRESS NOTE SERVICE DATE: April 10, 2022 SERVICE TIME: 5:00- Pt did not show for his final DBT Skills group. See discharge summary below. DBT Skills Discharge Summary- Despite Staff sending Pt. Below information last week, Pt. Did not respond with his perspective of progress and progress is noted by staff below. Pt made progress with personal treatment goals in the following skill areas: Interpersonal Effectiveness: Pt. Has reported less interpersonal conflict in recent weeks with his online following and individual arguments over social media, and with his family at home. Emotion Regulation: Pt. Has learned about the role of emotion and how to decipher between emotional experiences. Pt. Could benefit from continued application of this awareness mindfully and in relationships. Distress Tolerance: Pt. 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 Pt. Has reported strengths in his logic mind and checking facts as a tool for reducing distress. Pt. Has also utilized behavior chain analysis in group to gain more insight in his urge cycles. Pt. Has reported an overall decrease in his panic attacks. Mindfulness: Pt. Has reported this as his most helpful skill consistently in the skills group. Pt. Routinely expresses awareness into his own thoughts, judgments and urges and has been able to decrease action on urges even when his emotions and distress are increased in the moment. Unresolved goals/continued areas of focus: Pt. Appears to have continued social isolation to his own preference which may also impair his overall ability to maintain his desired relationships and effective communication. Continue to work on anger management and reducing frustration with feelings of overwhelm. Patient Data Generalized Anxiety Disorder Scale (KATIE-7) KATIE - 7 SCORES 11/22/2021 01/06/2022 02/10/2022 KATIE-7 Score 19 19 17 (0-4) minimal anxiety, (5-9) mild anxiety, (10-14) moderate anxiety, (15-21) severe anxiety Mindful Attention Awareness Scale (REX) Mindful Attention Awareness Scale (REX) 10/26/2021 11/09/2021 11/22/2021 Mindful Attention Awareness Scale Score 43 44 51 Mindful Attention Awareness Scale Mean Score 2.87 2.93 3.4 Patient Health Questionnaire (PHQ-9) PHQ-9 11/23/2021 01/06/2022 02/10/2022 Score 15 15 16 (0-4) minimal depression, (5-9) mild depression, (10-14) moderate depression, (15-19) moderately severe depression, (20-27) severe depression Pt confirmed follow-up appointments with: Individual therapist Pt. Has established and completed intake with outpatient provider Prescriber: Magaly Alvarez APRN.OFFSET SECOND PRESS OPERATOR; 6.10.22 @ 4:00PM Pt has safety plan that was developed at the start of DBT Skills to refer to as needed. Pt was encouraged to reach out to program staff in the future if interested in additional treatment services and/or return for services. *Co-Facilitated between Kristen Marrero [facility] and ALLIE Mccall-S, [facility] 03-27-2022 Note HNO ID: [id number] Author: ALLIE Morgan Service: Behavioral Health Outpatient Group Author Type: Therapist Type: Progress Notes Filed: 03/27/2022 5:58 PM Note Text: Summary: No Show *This service is provided virtually via [employer]. DBT SKILLS WEEKLY GROUP (OUTPATIENT PROGRAM) PROGRESS NOTE SERVICE DATE: March 27, 2022. SERVICE TIME: 5:00pm Pt did not show for session. He was outreached via email, reminded of the holiday next week, and of his upcoming discharge from DBT Skills on 04/10/22. [facility] 03-27-2022 History of Presen t illness Narrative Summary: No Show *This service is provided virtually via [employer]. DBT SKILLS WEEKLY GROUP (OUTPATIENT PROGRAM) PROGRESS NOTE SERVICE DATE: March 27, 2022. SERVICE TIME: 5:00pm Pt did not show for session. He was outreached via email, reminded of the holiday next week, and of his upcoming discharge from DBT Skills on 04/10/22. documented in this encounter [facility] 03-20-2022 Note HNO ID: [id number] Author: ALLIE Morgan Service: Behavioral Health Outpatient Group Author Type: Therapist Type: Progress Notes Filed: 03/20/2022 8:45 PM Note Text: Summary: VDBT Skills group *This service is provided virtually via [employer]. DBT SKILLS WEEKLY GROUP (OUTPATIENT PROGRAM) PROGRESS NOTE SERVICE DATE: March 20, 2022. SERVICE TIME: 5:00-6:30pm BEHAVIOR: Appearance: Casually Attired Attitude: Cooperative Affect: Appropriate Mood: Depressed, anxious and Pleasant Orientation: Oriented to person, place and time Thought: Logical to abstract Speech: Normal Eye Contact: Intermittent Describe Change Noted Throughout the Day: NA see above. GROUP THERAPY: Process Therapy Start Time: 5:00 pm Total Time: 90 minutes # of Patients: 11 THERAPEUTIC FOCUS: DBT Skills Weekly Group Module: Interpersonal Effectiveness Wk3. Mindfulness activity; attended and processed; reviewed previous material of QUIQUE/ assertion and reviewed new material of validation and give PROBLEM(S) ADDRESSED: -Mental health issues INTERVENTIONS: DBT Skill group with mindfulness practiced and processed in session. Reviewed previous material and new material; lead group example of skill use for group members to practice and implement this week outside of group sessions; linked group members and prompted exploration of skill with current stressors. RESPONSE: Pt. Did not turn in completed card prior to group/ at beginning of group when prompted by program staff to email completed diary cards. Diary card indicates: n/a Reviewed mood diary to assess for concerns related to medications, SI, changes in mood and daily functioning. Appears attentive, participative and willing. Pt. participated in review of homework and skill education and shared: that he struggles with allowing anger to build up, then lashing out impulsively at others. Patient Affirms Safety and states intention to return for the next treatment session. PLAN: Continue DBT Skills Program and follow individualized treatment plan. Continue with individual therapist and medication provider as necessary while in program. *Facilitated by: Kaylan Marrero [facility] 03-13-2022 Note HNO ID: [id number] Author: Birgit Peralta [facility] Service: Behavioral Health Outpatient Group Author Type: Therapist Type: Progress Notes Filed: 03/13/2022 6:35 PM Note Text: Summary: VDBT Skills group *This service is provided virtually via [employer]. DBT SKILLS WEEKLY GROUP (OUTPATIENT PROGRAM) PROGRESS NOTE SERVICE DATE: March 13, 2022. SERVICE TIME: 5:00-6:30pm BEHAVIOR: Appearance: Casually Attired Attitude: Cooperative Affect: Appropriate Mood: Depressed, anxious and Pleasant Orientation: Oriented to person, place and time Thought: Logical to abstract Speech: Normal Eye Contact: Intermittent Describe Change Noted Throughout the Day: NA see above. GROUP THERAPY: Process Therapy Start Time: 5:00 pm Total Time: 90 minutes # of Patients: 11 THERAPEUTIC FOCUS: DBT Skills Weekly Group Module: Interpersonal Effectiveness Wk2. Mindfulness activity; attended and processed; reviewed previous material of dialectics in relationships and reviewed new material of assertion and QUIQUE skill. PROBLEM(S) ADDRESSED: -Mental health issues INTERVENTIONS: DBT Skill group with mindfulness practiced and processed in session. Reviewed previous material and new material; lead group example of skill use for group members to practice and implement this week outside of group sessions; linked group members and prompted exploration of skill with current stressors. RESPONSE: Pt. Did not turn in completed card prior to group. Pt. was prompted by program staff to email completed diary cards by 12 noon on Mondays. Appears attentive, passive and willing when prompted. Pt. participated in review of homework and skill education and shared: Pt. Did not participate in the weekly review/check in. Pt. Commented occasionally, nodded along and appeared attentive taking notes during skill education and handout review. Pt. Shared facts with the group which were concrete and off topic at times. Patient Affirms Safety and states intention to return for the next treatment session. PLAN: Continue DBT Skills Program and follow individualized treatment plan. Continue with individual therapist and medication provider as necessary while in program. *Facilitated by: Birgit Peralta [facility], [facility] and Kaylan Marrero [facility] 03-13-2022 History of Presen t illness Narrative Summary: VDBT Skills group *This service is provided virtually via i2we/opendorse. DBT SKILLS WEEKLY GROUP (OUTPATIENT PROGRAM) PROGRESS NOTE SERVICE DATE: March 13, 2022. SERVICE TIME: 5:00-6:30pm BEHAVIOR: Appearance: Casually Attired Attitude: Cooperative Affect: Appropriate Mood: Depressed, anxious and Pleasant Orientation: Oriented to person, place and time Thought: Logical to abstract Speech: Normal Eye Contact: Intermittent Describe Change Noted Throughout the Day: NA see above. GROUP THERAPY: Process Therapy Start Time: 5:00 pm Total Time: 90 minutes # of Patients: 11 THERAPEUTIC FOCUS: DBT Skills Weekly Group Module: Interpersonal Effectiveness Wk2. Mindfulness activity; attended and processed; reviewed previous material of dialectics in relationships and reviewed new material of assertion and QUIQUE skill. PROBLEM(S) ADDRESSED: -Mental health issues INTERVENTIONS: DBT Skill group with mindfulness practiced and processed in session. Reviewed previous material and new material; lead group example of skill use for group members to practice and implement this week outside of group sessions; linked group members and prompted exploration of skill with current stressors. RESPONSE: Pt. Did not turn in completed card prior to group. Pt. was prompted by program staff to email completed diary cards by 12 noon on Mondays. Appears attentive, passive and willing when prompted. Pt. participated in review of homework and skill education and shared: Pt. Did not participate in the weekly review/check in. Pt. Commented occasionally, nodded along and appeared attentive taking notes during skill education and handout review. Pt. Shared facts with the group which were concrete and off topic at times. Patient Affirms Safety and states intention to return for the next treatment session. PLAN: Continue DBT Skills Program and follow individualized treatment plan. Continue with individual therapist and medication provider as necessary while in program. *Facilitated by: Birgit KELLEY-S, [facility] and Kaylan KELLEY-S documented in this encounter [facility] 03-07-2022 Miscellaneous Notes PDMP website checked and validated. All prescriptions have been APPROPRIATELY filled. No suspicious activity was identified. 03/07/2022 by Whitley Veliz APRN.TUCKER SANDRA: 01/02/2022 ativan Last refill: 12/18/2021 QTY: 20 Refills: 2 d2 Last refill: 01/04/2022 QTY: 12 Refills: 0 documented in this encounter [facility] 03-07-2022 Miscellaneous Notes Follow up scheduled for 04/14/2022. Left message for patient to call office to schedule FU and then refills will be sent. Please schedule a follow up appointment and then refills will be sent accordingly. documented in this encounter [facility] 03-06-2022 Note HNO ID: [id number] Author: ALLIE Morgan Service: Behavioral Health Outpatient Group Author Type: Therapist Type: Progress Notes Filed: 03/06/2022 6:22 PM Note Text: *This service is provided virtually via i2we/opendorse. DBT SKILLS WEEKLY GROUP (OUTPATIENT PROGRAM) PROGRESS NOTE SERVICE DATE: March 06, 2022 SERVICE TIME: 5:00-6:30pm BEHAVIOR: Appearance: Casually attired Attitude: Cooperative Affect: Appropriate Mood: Depressed, anxious and Pleasant Orientation: Oriented to person, place and time Thought: Logical Speech: Normal Eye Contact: Intermittent Describe Change Noted Throughout the Day: NA see above. GROUP THERAPY: Process Therapy Start Time: 5:00 pm Total Time: 90 minutes # of Patients: 11 THERAPEUTIC FOCUS: DBT Skills Weekly Group Module: Interpersonal Effectiveness Week 1 DBT Group guidelines review, mindfulness practice and processing, new skill education and processing. PROBLEM(S) ADDRESSED: -Mental health issues INTERVENTIONS: DBT Skill group with mindfulness practiced and processed in session. Check in and diary card review; discussion around DBT Group, interpersonal goals and attendance policies. New Skill Education presented and discussed around dialectics, and dialectics in communication and connection. RESPONSE: Pt. did not turn in completed card prior to group due to it being her first night of session. Pt. Was able to introduce themselves as this is the first night of the interpersonal module. Reviewed mood diary to assess for concerns related to medications, SI, changes in mood and daily functioning. Appears attentive, participative and willing. Pt. Participated in mindfulness practice and identified a personal interpersonal goal for this module, wrote it down and shared it in group. Pt. Shared, he would like to be willing to let go of things that have happened in the past in relationships. Pt. participated passively in review of group materials and skill education through non-verbal head nods, taking notes, etc. Patient Affirms Safety and states intention to return in one week. PLAN: Continue DBT Skills Program and follow individualized treatment plan. Continue with individual therapist and medication provider as necessary while in program. *Co-Facilitated between Kristen Marrero [facility] and [facility] 03-06-2022 History of Presen t illness Narrative *This service is provided virtually via i2we/opendorse. DBT SKILLS WEEKLY GROUP (OUTPATIENT PROGRAM) PROGRESS NOTE SERVICE DATE: March 06, 2022 SERVICE TIME: 5:00-6:30pm BEHAVIOR: Appearance: Casually attired Attitude: Cooperative Affect: Appropriate Mood: Depressed, anxious and Pleasant Orientation: Oriented to person, place and time Thought: Logical Speech: Normal Eye Contact: Intermittent Describe Change Noted Throughout the Day: NA see above. GROUP THERAPY: Process Therapy Start Time: 5:00 pm Total Time: 90 minutes # of Patients: 11 THERAPEUTIC FOCUS: DBT Skills Weekly Group Module: Interpersonal Effectiveness Week 1 DBT Group guidelines review, mindfulness practice and processing, new skill education and processing. PROBLEM(S) ADDRESSED: -Mental health issues INTERVENTIONS: DBT Skill group with mindfulness practiced and processed in session. Check in and diary card review; discussion around DBT Group, interpersonal goals and attendance policies. New Skill Education presented and discussed around dialectics, and dialectics in communication and connection. RESPONSE: Pt. did not turn in completed card prior to group due to it being her first night of session. Pt. Was able to introduce themselves as this is the first night of the interpersonal module. Reviewed mood diary to assess for concerns related to medications, SI, changes in mood and daily functioning. Appears attentive, participative and willing. Pt. Participated in mindfulness practice and identified a personal interpersonal goal for this module, wrote it down and shared it in group. Pt. Shared, he would like to be willing to let go of things that have happened in the past in relationships. Pt. participated passively in review of group materials and skill education through non-verbal head nods, taking notes, etc. Patient Affirms Safety and states intention to return in one week. PLAN: Continue DBT Skills Program and follow individualized treatment plan. Continue with individual therapist and medication provider as necessary while in program. *Co-Facilitated between Kristen KELLEY-S and ALLIE Mccall-S, [facility] documented in this encounter [facility] 02-27-2022 Note HNO ID: [id number] Author: ALLIE Mccall Service: Behavioral Health Outpatient Group Author Type: Therapist Type: Progress Notes Filed: 02/27/2022 6:31 PM Note Text: Summary: VDBT Skills group *This service is provided virtually via [employer]. DBT SKILLS WEEKLY GROUP (OUTPATIENT PROGRAM) PROGRESS NOTE SERVICE DATE: February 27, 2022. SERVICE TIME: 5:00-6:30pm BEHAVIOR: Appearance: Casually Attired Attitude: Cooperative Affect: Appropriate Mood: Depressed, anxious and Pleasant Orientation: Oriented to person, place and time Thought: Logical to abstract Speech: Normal Eye Contact: Intermittent Describe Change Noted Throughout the Day: NA see above. GROUP THERAPY: Process Therapy Start Time: 5:00 pm Total Time: 90 minutes # of Patients: 9 THERAPEUTIC FOCUS: DBT Skills Weekly Group Module: Distress Tolerance Wk 5. Mindfulness activity; attended and processed; reviewed previous material of willingness, half smile, willing hands and healthy self soothing. Reflected on goals from distress tolerance module and answered wrap up questions regarding distress tolerance. PROBLEM(S) ADDRESSED: -Mental health issues INTERVENTIONS: DBT Skill group with mindfulness practiced and processed in session. Reviewed previous material and reflected on set goal for distress tolerance with use of own personal insight and discussion from group members; linked group members and prompted exploration of skill with current stressors. RESPONSE: Pt. Arrived late-at 540pm. Pt Did not turn in completed card prior to group/ at beginning of group when prompted by program staff to email completed diary cards. Diary card indicates: n/a Reviewed mood diary to assess for concerns related to medications, SI, changes in mood and daily functioning. Appears attentive, participative and willing. Pt. participated in review of homework and skill education and shared: that he can use tiktok for sound, cologne for smell, pet for touch. He noted that this could be helpful for him when he's on the verge of a panic attack. Pt. Spoke about his goals overall and said he had been thinking about the chain analysis skill and looking at his chain reaction and said he thought about how one action can lead to another. Pt. spoke about changing the actions and branching off from another. Pt. Noted he enjoys how it could be related to 'the multi-verse theory and experimenting'. Pt. Noted he has observed that when he uses his social media less, he then has decreased racing thoughts and 'a little more clear head'. Pt. Spoke in 'you' statements in group to disclose his information about his thoughts and ruminations about social media. Patient Affirms Safety and states intention to return for the next treatment session. PLAN: Continue DBT Skills Program and follow individualized treatment plan. Continue with individual therapist and medication provider as necessary while in program. *Facilitated by: Birgit Peralta [facility], [facility] and Kaylan Marrero [facility] 02-27-2022 History of Presen t illness Narrative Summary: VDBT Skills group *This service is provided virtually via [employer]. DBT SKILLS WEEKLY GROUP (OUTPATIENT PROGRAM) PROGRESS NOTE SERVICE DATE: February 27, 2022. SERVICE TIME: 5:00-6:30pm BEHAVIOR: Appearance: Casually Attired Attitude: Cooperative Affect: Appropriate Mood: Depressed, anxious and Pleasant Orientation: Oriented to person, place and time Thought: Logical to abstract Speech: Normal Eye Contact: Intermittent Describe Change Noted Throughout the Day: NA see above. GROUP THERAPY: Process Therapy Start Time: 5:00 pm Total Time: 90 minutes # of Patients: 9 THERAPEUTIC FOCUS: DBT Skills Weekly Group Module: Distress Tolerance Wk 5. Mindfulness activity; attended and processed; reviewed previous material of willingness, half smile, willing hands and healthy self soothing. Reflected on goals from distress tolerance module and answered wrap up questions regarding distress tolerance. PROBLEM(S) ADDRESSED: -Mental health issues INTERVENTIONS: DBT Skill group with mindfulness practiced and processed in session. Reviewed previous material and reflected on set goal for distress tolerance with use of own personal insight and discussion from group members; linked group members and prompted exploration of skill with current stressors. RESPONSE: Pt. Arrived late-at 540pm. Pt Did not turn in completed card prior to group/ at beginning of group when prompted by program staff to email completed diary cards. Diary card indicates: n/a Reviewed mood diary to assess for concerns related to medications, SI, changes in mood and daily functioning. Appears attentive, participative and willing. Pt. participated in review of homework and skill education and shared: that he can use tiktok for sound, cologne for smell, pet for touch. He noted that this could be helpful for him when he's on the verge of a panic attack. Pt. Spoke about his goals overall and said he had been thinking about the chain analysis skill and looking at his chain reaction and said he thought about how one action can lead to another. Pt. spoke about changing the actions and branching off from another. Pt. Noted he enjoys how it could be related to 'the multi-verse theory and experimenting'. Pt. Noted he has observed that when he uses his social media less, he then has decreased racing thoughts and 'a little more clear head'. Pt. Spoke in 'you' statements in group to disclose his information about his thoughts and ruminations about social media. Patient Affirms Safety and states intention to return for the next treatment session. PLAN: Continue DBT Skills Program and follow individualized treatment plan. Continue with individual therapist and medication provider as necessary while in program. *Facilitated by: [facility]Brgit Peralta [facility] and Kaylan Marrero [facility] documented in this encounter [facility] 02-20-2022 Note HNO ID: [id number] Author: ALLIE Mccall Service: Behavioral Health Outpatient Group Author Type: Therapist Type: Progress Notes Filed: 02/20/2022 4:59 PM Note Text: Summary: VDBT Skills group cancellation BEHAVIORAL HEALTH DBT Skills APPOINTMENT CANCELLATION COMMUNICATION DATE: 02/20/2022 Scheduled Skills Group Therapy appointment for Donis Ferrer was on 02.20.22 at 500pm. Patient canceled the appointment. Pt. Emailed staff at 4:44pm noting, sorry i cant make it today SIGNATURE: ALLIE Mccall PATIENT NAME: Donis Ferrer DATE: February 20, 2022 TIME: 4:58 PM [facility] 02-20-2022 History of Presen t illness Narrative Summary: VDBT Skills group cancellation BEHAVIORAL HEALTH DBT Skills APPOINTMENT CANCELLATION COMMUNICATION DATE: 02/20/2022 Scheduled Skills Group Therapy appointment for Donis Ferrer was on 02.20.22 at 500pm. Patient canceled the appointment. Pt. Emailed staff at 4:44pm noting, travis i cant make it today SIGNATURE: ALLIE Mccall PATIENT NAME: Donis Ferrer DATE: February 20, 2022 TIME: 4:58 PM documented in this encounter [facility] 02-13-2022 Note HNO ID: [id number] Author: ALLIE Mccall Service: Behavioral Health IOP (Intensive Outpatient Program) Author Type: Therapist Type: Progress Notes Filed: 02/13/2022 6:24 PM Note Text: Summary: DBT Skills Weekly Group *This service is provided virtually via [employer]. DBT SKILLS WEEKLY GROUP (OUTPATIENT PROGRAM) PROGRESS NOTE SERVICE DATE: February, SERVICE TIME: 5:00-6:30pm BEHAVIOR: Appearance: Casually Attired Attitude: Cooperative Affect: Appropriate Mood: Depressed, anxious and Pleasant Orientation: Oriented to person, place and time Thought: Logical Speech: Normal Eye Contact: Intermittent Describe Change Noted Throughout the Day: NA see above. GROUP THERAPY: Process Therapy Start Time: 5:00 pm Total Time: 90 minutes # of Patients: 7 THERAPEUTIC FOCUS: DBT Skills Weekly Group Module: Distress Tolerance, Reality Acceptance, Radical Acceptance and Turn the Mind skill. Homework review, mindfulness practice and processing, new skill education and processing. PROBLEM(S) ADDRESSED: -Mental health issues INTERVENTIONS: DBT Skill group with mindfulness practiced and processed in session. Check in and homework review; discussion around last week?s skill of behavior chain and mindfulness to thoughts New Skill Education presented and discussed around Reality Acceptance, Radical Acceptance and Turn the Mind skill. RESPONSE: Pt. did not turn in completed card prior to group. Pt. Was reminded to send diary card information by three pm on Mondays or Sunday evenings in the future. Reviewed mood diary to assess for concerns related to medications, SI, changes in mood and daily functioning. Appears attentive, participative and willing. Pt. participated in review of homework and skill education and shared: that he struggles with homework and experienced some confusion about the behavior chain skill. Pt recognized how disrupted sleep is a significant vulnerability for him. Pt shared that he's been more mindful of his emotions this past week and was less reactive to anger, and didn't lash out as much on social media. He noted trying hypnosis via YouTube video last night for assistance in managing/reducing anger. Pt. Participated in mindfulness practice of the blanket of acceptance. Pt. Responded to the mindfulness and shared. 'I wanted to stay there in the blanket'. Pt. Spoke up about acceptance and responded to others who are anticipating loss and grief in the group. Pt. Shared he has thoughts and desires to be prepared if/when he loses his mother in the future. Pt. Said he would like to become more independent and strong minded so he can be 'better prepared' when the time comes. Pt. Continued to participate in education with spontaneity and sharing with comments and relating in group. Patient Affirms Safety and states intention to return in one week. PLAN: Continue DBT Skills Program and follow individualized treatment plan. Continue with individual therapist and medication provider as necessary while in program. *Co-Facilitated between Kristen Marrero [facility] and Birgit Peralta [facility], [facility] 02-13-2022 History of Presen t illness Narrative Summary: DBT Skills Weekly Group *This service is provided virtually via [employer]. DBT SKILLS WEEKLY GROUP (OUTPATIENT PROGRAM) PROGRESS NOTE SERVICE DATE: February, SERVICE TIME: 5:00-6:30pm BEHAVIOR: Appearance: Casually Attired Attitude: Cooperative Affect: Appropriate Mood: Depressed, anxious and Pleasant Orientation: Oriented to person, place and time Thought: Logical Speech: Normal Eye Contact: Intermittent Describe Change Noted Throughout the Day: NA see above. GROUP THERAPY: Process Therapy Start Time: 5:00 pm Total Time: 90 minutes # of Patients: 7 THERAPEUTIC FOCUS: DBT Skills Weekly Group Module: Distress Tolerance, Reality Acceptance, Radical Acceptance and Turn the Mind skill. Homework review, mindfulness practice and processing, new skill education and processing. PROBLEM(S) ADDRESSED: -Mental health issues INTERVENTIONS: DBT Skill group with mindfulness practiced and processed in session. Check in and homework review; discussion around last week s skill of behavior chain and mindfulness to thoughts New Skill Education presented and discussed around Reality Acceptance, Radical Acceptance and Turn the Mind skill. RESPONSE: Pt. did not turn in completed card prior to group. Pt. Was reminded to send diary card information by three pm on Mondays or Sunday evenings in the future. Reviewed mood diary to assess for concerns related to medications, SI, changes in mood and daily functioning. Appears attentive, participative and willing. Pt. participated in review of homework and skill education and shared: that he struggles with homework and experienced some confusion about the behavior chain skill. Pt recognized how disrupted sleep is a significant vulnerability for him. Pt shared that he's been more mindful of his emotions this past week and was less reactive to anger, and didn't lash out as much on social media. He noted trying hypnosis via YouTube video last night for assistance in managing/reducing anger. Pt. Participated in mindfulness practice of the blanket of acceptance. Pt. Responded to the mindfulness and shared. 'I wanted to stay there in the blanket'. Pt. Spoke up about acceptance and responded to others who are anticipating loss and grief in the group. Pt. Shared he has thoughts and desires to be prepared if/when he loses his mother in the future. Pt. Said he would like to become more independent and strong minded so he can be 'better prepared' when the time comes. Pt. Continued to participate in education with spontaneity and sharing with comments and relating in group. Patient Affirms Safety and states intention to return in one week. PLAN: Continue DBT Skills Program and follow individualized treatment plan. Continue with individual therapist and medication provider as necessary while in program. *Co-Facilitated between Kristen KELLEY-S and ALLIE Mccall-Jaskaran, ATR documented in this encounter [facility] 02-10-2022 History of Presen t illness Narrative Images from the original note were not included. PSYC FOLLOW UP - PSYCHIATRIC PROGRESS NOTE DIAGNOSIS: 1. KATIE 2. MDD, recurrent, moderate 3. BPD GAF: -60-51 Moderate symptoms or moderate difficulty in social, occupational or school functioning. TREATMENT PLAN: 1. Increase Venlafaxine to help with anxiety symptoms. 2. Continue Lamictal at the same dose. 3. Continue Gabapentin at the same dose. Consider decreasing the dose to TID if anxiety improves more with the increase in Venlafaxine. 4. Continue to work on reducing reliance on Ativan use. 5. Follow up in 4 weeks. Medication Update: 1. Venlafaxine 75 mg XR - take 1 capsule once daily with breakfast; take with 37.5 mg dose. 2. Venlafaxine 37.5 mg XR - take 1 capsule once daily with breakfast; take with 75 mg dose. 3. Continue Lamictal and Gabapentin at the same dose. The effects and side effects of all the medications were reviewed in detail with the patient. He is aware of the rash side effect related to Lamictal. PDMP report was reviewed and found to be appropriate without any signs of misuse or diversion. Patient is in agreement with the treatment plan and aware to reach out with any questions, concerns, or worsening of symptoms prior to the next appointment. CC: Anxiety and Depression With the patient consent, visit was performed virtually. HPI: Donis Ferrer is a 36 year old Male with a history of KATIE, MDD, and BPD presenting today for follow-up. Date of last visit: 01/06/2022 Plan from last visit: 1. Increase Lamictal to address his mood and irritability concerns. 2. Change Venlafaxine to extended release formulation to prevent interdose withdrawal symptoms. Consider increasing Venlafaxine if tolerated. 3. Continue individual psychotherapy and weekly DBT sessions. 4. Utilize no more than Ativan 0.5 mg and only as needed for increased feelings of panic. 5. Continue Gabapentin at the same dose in the beginning. If noticing overall improvement in anxiety, consider reducing Gabapentin from QID to TID. Today Donis shares that he has noticed improvement in his mood and anxiety but he is not where he wants to be yet. He has been slightly more productive and more motivated. Shares that the extended release version of Venlafaxine has helped with anxiety and he has been able to tolerate it better. He has stress related to managing his social media accounts. He has been working on figuring out how to cope with it. There is always going to be someone who is going to hate you . He is trying to not let it get to him. One of his followers mailed him an offensive package and he was initially upset but has been feeling better about it. The exercises that he has learned through the DBT weekly group have helped with this. He continues to work on reducing his Ativan use. Only takes 0.5 mg and tries distraction techniques to manage his anxiety first. He denies any changes with his appetite. He did have one episode of binge eating. He is in agreement to try a higher dose of Venlafaxine to help more with his anxiety. Interval Progress: Improved Risks and benefits of the medication, including any black box warnings, were discussed with the patient. Social History: See HPI PATIENT DATA: Generalized Anxiety Disorder Scale (KATIE-7) KATIE - 7 SCORES 11/22/2021 01/06/2022 02/10/2022 KATIE-7 Score 19 19 17 (0-4) minimal anxiety, (5-9) mild anxiety, (10-14) moderate anxiety, (15-21) severe anxiety Patient Health Questionnaire (PHQ-9) PHQ-9 11/23/2021 01/06/2022 02/10/2022 Score 15 15 16 (0-4) minimal depression, (5-9) mild depression, (10-14) moderate depression, (15-19) moderately severe depression, (20-27) severe depression ROS: General: Negative for fever, malaise, unintentional weight loss HEENT: Negative for recent changes in vision or hearing, no nasal drainage Respiratory: Negative for cough, wheezing or SOB Cardiovascular: Negative for chest pain GI: Negative for nausea, vomiting, change in bowel habits MUSCULOSKELETAL: Negative for acute back or joint pain SKIN: Negative for rash NEURO: Negative for headaches, seizures, focal neurological deficits All other systems negative. VITAL SIGNS: None as visit was virtual. BP Temp Pulse Resp SpO2 MENTAL STATUS EXAMINATION: Appearance: Appropriately groomed, appears stated age Behavior: Appropriately engaged Psychomotor: No psychomotor agitation Cognition Level of Consciousness: Awake and alert. No fluctuation in wakefulness. Orientation: Grossly oriented Memory: Intact Attention/Concentration: Good Fund of Knowledge: Able to demonstrate an awareness of current events. Mood: Anxious Affect: Full and appropriate to topic Speech/Language: Appropriate tone, prosody, [place], phonetics, and syntax Thought Form: Goal-directed. No loosening of associations. Thought Content: No delusions noted or endorsed. Perceptual Disturbances: Did not appear to respond to auditory stimuli. Safety: Suicidal Ideations: No suicidal ideation, intent or plan. Homicidal Ideations: No homicidal ideation, intent or plan. Insight: Appropriate Judgment: Appropriate I spent a total of 28 minutes on the date of the service which included preparing to see the patient, [id number] patient care, completing clinical documentation, and counseling and educating the patient/family/caregiver, ordering medications/labs. Magaly Alvarez APRN.TUCKER February 10, 2022 11:04 AM documented in this encounter [facility] 02-06-2022 Note HNO ID: [id number] Author: Kristen Marrero [facility] Service: Behavioral Health IOP (Intensive Outpatient Program) Author Type: Therapist Type: Progress Notes Filed: 02/06/2022 6:28 PM Note Text: Summary: DBT Skills Weekly Group *This service is provided virtually via [employer]. DBT SKILLS WEEKLY GROUP (OUTPATIENT PROGRAM) PROGRESS NOTE SERVICE DATE: February 06, 2022. SERVICE TIME: 5:00-6:30pm BEHAVIOR: Appearance: Casually Attired Attitude: Cooperative Affect: Appropriate Mood: Depressed, anxious and Pleasant Orientation: Oriented to person, place and time Thought: Logical to abstract Speech: Normal Eye Contact: Intermittent Describe Change Noted Throughout the Day: NA see above. GROUP THERAPY: Process Therapy Start Time: 5:00 pm Total Time: 90 minutes # of Patients: 8 THERAPEUTIC FOCUS: DBT Skills Weekly Group Module: Distress Tolerance Wk 2. Mindfulness activity; attended and processed; reviewed previous material of paired rethinking and breathing, STOP and TIPP skills; reviewed new skills of mindfulness to thoughts and behavior chain analysis. PROBLEM(S) ADDRESSED: -Mental health issues INTERVENTIONS: DBT Skill group with mindfulness practiced and processed in session. Reviewed previous material and new skill material with use of own personal insight and discussion from group members; linked group members and prompted exploration of skill with current stressors. RESPONSE: Pt. Did not turn in completed card prior to group/ at beginning of group when prompted by program staff to email completed diary cards. Diary card indicates: n/a Reviewed mood diary to assess for concerns related to medications, SI, changes in mood and daily functioning. Appears attentive, participative and willing. Pt. participated in review of homework and skill education and shared: that he got caught up in some online drama. He identified getting into some arguments with people on twitter, which created some stress for him. He noted a desire to not pay attention to things that upset him online, stating that he knows the reality is that there will always be some negativity online. He reported doing a new workout routine. Pt acknowledged that he is feeling grumpy and didn't want to come to group today. Pt was open to solvent plant operator's pointing out that he is using opposite action. Pt volunteered an example of an urge to check social media sites on his phone excessively. He noted that he did this most recently at the start of group. Pt noted worrying about others judging him and his social media presence, as well as, starting a new exercise program and having limited socialization as vulnerabilities. Pt noted a trigger of speaking about twitter in group, taking a bathroom break and wanting to check and respond to anything important. He was able to identify having urges to unplug, zone out, not come to group or share, as well as, irritability, frustration and anxiety. He noted urges vacillated between defending self/irritability and ignoring/unplugging from social media. Pt was mindful of body sensations: discomfort/heaviness in chest. Pt noted short-term pay-off of getting good news that he could be missing. Pt was open to considering additional skills he could have inserted into the chain, including moment to pause, opposite action, boundaries within self, pros/cons. Patient Affirms Safety and states intention to return for the next treatment session. PLAN: Continue DBT Skills Program and follow individualized treatment plan. Continue with individual therapist and medication provider as necessary while in program. *Facilitated by: Birgit Peralta [facility], ATR and Kaylan Marrero [facility] 02-06-2022 History of Presen t illness Narrative Summary: DBT Skills Weekly Group *This service is provided virtually via [employer]. DBT SKILLS WEEKLY GROUP (OUTPATIENT PROGRAM) PROGRESS NOTE SERVICE DATE: February 06, 2022. SERVICE TIME: 5:00-6:30pm BEHAVIOR: Appearance: Casually Attired Attitude: Cooperative Affect: Appropriate Mood: Depressed, anxious and Pleasant Orientation: Oriented to person, place and time Thought: Logical to abstract Speech: Normal Eye Contact: Intermittent Describe Change Noted Throughout the Day: NA see above. GROUP THERAPY: Process Therapy Start Time: 5:00 pm Total Time: 90 minutes # of Patients: 8 THERAPEUTIC FOCUS: DBT Skills Weekly Group Module: Distress Tolerance Wk 2. Mindfulness activity; attended and processed; reviewed previous material of paired rethinking and breathing, STOP and TIPP skills; reviewed new skills of mindfulness to thoughts and behavior chain analysis. PROBLEM(S) ADDRESSED: -Mental health issues INTERVENTIONS: DBT Skill group with mindfulness practiced and processed in session. Reviewed previous material and new skill material with use of own personal insight and discussion from group members; linked group members and prompted exploration of skill with current stressors. RESPONSE: Pt. Did not turn in completed card prior to group/ at beginning of group when prompted by program staff to email completed diary cards. Diary card indicates: n/a Reviewed mood diary to assess for concerns related to medications, SI, changes in mood and daily functioning. Appears attentive, participative and willing. Pt. participated in review of homework and skill education and shared: that he got caught up in some online drama. He identified getting into some arguments with people on twitter, which created some stress for him. He noted a desire to not pay attention to things that upset him online, stating that he knows the reality is that there will always be some negativity online. He reported doing a new workout routine. Pt acknowledged that he is feeling grumpy and didn't want to come to group today. Pt was open to solvent plant operator's pointing out that he is using opposite action. Pt volunteered an example of an urge to check social media sites on his phone excessively. He noted that he did this most recently at the start of group. Pt noted worrying about others judging him and his social media presence, as well as, starting a new exercise program and having limited socialization as vulnerabilities. Pt noted a trigger of speaking about twitter in group, taking a bathroom break and wanting to check and respond to anything important. He was able to identify having urges to unplug, zone out, not come to group or share, as well as, irritability, frustration and anxiety. He noted urges vacillated between defending self/irritability and ignoring/unplugging from social media. Pt was mindful of body sensations: discomfort/heaviness in chest. Pt noted short-term pay-off of getting good news that he could be missing. Pt was open to considering additional skills he could have inserted into the chain, including moment to pause, opposite action, boundaries within self, pros/cons. Patient Affirms Safety and states intention to return for the next treatment session. PLAN: Continue DBT Skills Program and follow individualized treatment plan. Continue with individual therapist and medication provider as necessary while in program. *Facilitated by: Birgit Peralta [facility], A[facility] and Kaylan Marrero [facility] documented in this encounter [facility] 01-30-2022 Note HNO ID: [id number] Author: ALLIE Morgan Service: Behavioral Health IOP (Intensive Outpatient Program) Author Type: Therapist Type: Progress Notes Filed: 01/30/2022 6:36 PM Note Text: Summary: DBT Weekly Group *This service is provided virtually via [employer]. DBT SKILLS WEEKLY GROUP (OUTPATIENT PROGRAM) PROGRESS NOTE SERVICE DATE: January 30, 2022 SERVICE TIME: 5:00-6:30pm BEHAVIOR: Appearance: Casually Attired Attitude: Cooperative Affect: Appropriate Mood: anxious Orientation: Oriented to person, place and time Thought: abstract Speech: Normal Eye Contact: Intermittent Describe Change Noted Throughout the Day: NA see above. GROUP THERAPY: Process Therapy Start Time: 5:00 pm Total Time: 90 minutes # of Patients: 7 THERAPEUTIC FOCUS: DBT Skills Weekly Group Module: Distress Tolerance Homework review, mindfulness practice and processing, new skill education and processing. PROBLEM(S) ADDRESSED: -Mental health issues INTERVENTIONS: DBT Skill group with mindfulness practiced and processed in session. Check in and some review; discussion around treatment agreements, new member orientation and introductions. New Module and Skill Education presented and discussed around dialectics of distress tolerance, STOP/TIPP and rethinking with relaxation presented. RESPONSE: Pt. did not turn in completed card prior to group. Reviewed mood diary to assess for concerns related to medications, SI, changes in mood and daily functioning. Appears attentive, participative and willing. Pt. participated in review and skill education and shared: that he would like to focus on managing stress in general, stating that he generally avoids it. He volunteered to read aloud and seemed attentive, overall, as shown by nodding and commenting spontaneously. He noted feeling highly anxious at the end of group and joked that he was applying the distress tolerance skills right then in the moment. Patient Affirms Safety and states intention to return in one week. PLAN: Continue DBT Skills Program and follow individualized treatment plan. Continue with individual therapist and medication provider as necessary while in program. [facility] 01-26-2022 Miscellaneous Notes Pharmacy requesting refill(s): [facility] Last appt: 01/06/22 Upcoming appt: 02/10/22 Pending Prescriptions Disp Refills GABAPENTIN 400 MG CAPSULE 120 capsule 1 Sig: TAKE 1 CAPSULE BY MOUTH FOUR TIMES A DAY ARACELY: Yes Please review and process accordingly. Thank you! documented in this encounter [facility] 01-23-2022 Note HNO ID: [id number] Author: Kristen Marrero [facility] Service: Behavioral Health Outpatient Group Author Type: Therapist Type: Progress Notes Filed: 01/23/2022 6:20 PM Note Text: *This service is provided virtually via [employer]endorse. DBT SKILLS WEEKLY GROUP (OUTPATIENT PROGRAM) PROGRESS NOTE SERVICE DATE: 01/23/22 SERVICE TIME: 5:00-6:30pm BEHAVIOR: Appearance: Casually Attired Attitude: cooperative Affect: tense Mood: anxious, irritable Orientation: Oriented to person, place and time Thought: abstract Speech: quiet Eye Contact: intermitent Describe Change Noted Throughout the Day: NA see above. GROUP THERAPY: Process Therapy Start Time: 5:00 pm Total Time: 90 minutes # of Patients: 7 THERAPEUTIC FOCUS: DBT Skills Weekly Group Emotion regulation skills: skill weaving/last week of module PROBLEM(S) ADDRESSED: -Mental health issues INTERVENTIONS: Mindfulness practice implemented and processed. Review of previous week's homework. Facilitated reflection on module goals set in week one through discussion and experiential art-based intervention. Reviewed each participant's diary card to assess for changes in mood and urge behaviors and to monitor for safety concerns. Acknowledged group members who are completing the program and facilitated discussion around program goals and progress for each graduating group member. RESPONSE: Pt. did not turn in completed card prior to group and noted: n/a Appears attentive, participative and willing. Pt. Participated in mindfulness exercise and reviewing the goals set and met over the 5 weeks of this emotion regulation module. Pt. Was asked about his progress in group. all I know is I wanted to get my panic attacks under control and they are happening at night now . Pt. Said he is having a hard day, was up early and vulnerable with lack of sleep. Pt. Noted he is not sure much has changed for him and also noted this is a 'bad day'. Patient Affirms Safety and states intention to return in one week. PLAN: Continue DBT Skills Program and follow individualized treatment plan. Continue with individual therapist and medication provider as necessary while in program. * Co-Facilitated between: Birgit Peralta, [facility], [facility] and Kristen Marrero [facility] 01-23-2022 History of Presen t illness Narrative *This service is provided virtually via i2we/opendorse. DBT SKILLS WEEKLY GROUP (OUTPATIENT PROGRAM) PROGRESS NOTE SERVICE DATE: 01/23/22 SERVICE TIME: 5:00-6:30pm BEHAVIOR: Appearance: Casually Attired Attitude: cooperative Affect: tense Mood: anxious, irritable Orientation: Oriented to person, place and time Thought: abstract Speech: quiet Eye Contact: intermitent Describe Change Noted Throughout the Day: NA see above. GROUP THERAPY: Process Therapy Start Time: 5:00 pm Total Time: 90 minutes # of Patients: 7 THERAPEUTIC FOCUS: DBT Skills Weekly Group Emotion regulation skills: skill weaving/last week of module PROBLEM(S) ADDRESSED: -Mental health issues INTERVENTIONS: Mindfulness practice implemented and processed. Review of previous week's homework. Facilitated reflection on module goals set in week one through discussion and experiential art-based intervention. Reviewed each participant's diary card to assess for changes in mood and urge behaviors and to monitor for safety concerns. Acknowledged group members who are completing the program and facilitated discussion around program goals and progress for each graduating group member. RESPONSE: Pt. did not turn in completed card prior to group and noted: n/a Appears attentive, participative and willing. Pt. Participated in mindfulness exercise and reviewing the goals set and met over the 5 weeks of this emotion regulation module. Pt. Was asked about his progress in group. all I know is I wanted to get my panic attacks under control and they are happening at night now . Pt. Said he is having a hard day, was up early and vulnerable with lack of sleep. Pt. Noted he is not sure much has changed for him and also noted this is a 'bad day'. Patient Affirms Safety and states intention to return in one week. PLAN: Continue DBT Skills Program and follow individualized treatment plan. Continue with individual therapist and medication provider as necessary while in program. * Co-Facilitated between: ALLIE Mccall-[facility], [facility] and ALLIE Morgan-S documented in this encounter [facility] 01-16-2022 Note HNO ID: [id number] Author: ALLIE Morgan Service: Behavioral Health Outpatient Group Author Type: Therapist Type: Progress Notes Filed: 01/16/2022 5:05 PM Note Text: Summary: Cancellation *This service is provided virtually via [employer]. DBT SKILLS WEEKLY GROUP (OUTPATIENT PROGRAM) PROGRESS NOTE SERVICE DATE: 01/16/22 SERVICE TIME: 5:00 Pt cancelled due to not feeling well. Pt plans to return to group next week. [facility] 01-16-2022 History of Presen t illness Narrative Summary: Cancellation *This service is provided virtually via [employer]. DBT SKILLS WEEKLY GROUP (OUTPATIENT PROGRAM) PROGRESS NOTE SERVICE DATE: 01/16/22 SERVICE TIME: 5:00 Pt cancelled due to not feeling well. Pt plans to return to group next week. documented in this encounter [facility] 01-09-2022 Note O ID: [id number] Author: ALLIE Morgan Service: Behavioral Health IOP (Intensive Outpatient Program) Author Type: Therapist Type: Progress Notes Filed: 01/09/2022 6:27 PM Note Text: Summary: DBT Skills weekly group *This service is provided virtually via [employer]. DBT SKILLS WEEKLY GROUP (OUTPATIENT PROGRAM) PROGRESS NOTE SERVICE DATE: January 09 2022. SERVICE TIME: 5:00-6:30pm BEHAVIOR: Appearance: Casually Attired Attitude: Cooperative Affect: Appropriate Mood: Depressed, anxious and Pleasant Orientation: Oriented to person, place and time Thought: Logical to abstract Speech: Normal Eye Contact: Intermittent Describe Change Noted Throughout the Day: NA see above. GROUP THERAPY: Process Therapy Start Time: 5:00 pm Total Time: 90 minutes # of Patients: 9 THERAPEUTIC FOCUS: DBT Skills Weekly Group Module: Emotion Regulation Week 3. Mindfulness activity; attended and processed; reviewed previous skills of recognize name and describe emotions; reviewed new information on opposite to emotion action and PLEASE skill. PROBLEM(S) ADDRESSED: -Mental health issues INTERVENTIONS: DBT Skill group with mindfulness practiced and processed in session. Reviewed previous skill information on recognize name and describe emotions; and new information on new skill of opposite to emotion action and Please skill. RESPONSE: Pt. Did not turn in completed card prior to group/ at beginning of group when prompted by program staff to email completed diary cards. Diary card indicates: Pt. Did not turn in diary card. Pt. Verbally noted safety. Reviewed mood diary to assess for concerns related to medications, SI, changes in mood and daily functioning. Appears attentive, participative and willing. Pt. participated in review of homework and skill education and shared: Pt. Spoke about his difficulties with completing homework and was looking at the papers during check in. Pt. Noted the model for describing emotions and shared he used something like this during the weekend when he woke up in the middle of the night. Pt. Not high anxieties and vulnerabilities about being tired and beliefs that he 'thinks there is something wrong with him and his heart will start racing'. Pt. Said he took a second half of his ativan and feels more tired today than usual and has secondary frustration about his fear response. Pt. Noted, I am so mad that this keeps happening. . Pt. Was open to some prompting questions and notes his continual fear that 'this is the one time that something is wrong with me'. Pt. Noted the nighttime wakings did not start until the 6 week IOP ended. During skill discussion around opposite action, pt noted that he wants to change the emotion of apathy, and can use opposite action by engaging/participating in activities such as participating/speaking up in group. Pt inquired how to apply opposite action to fear when his fear is related to medical/health concerns, stating that he's not sure how to approach that. Patient Affirms Safety and states intention to return for the next treatment session. PLAN: Continue DBT Skills Program and follow individualized treatment plan. Continue with individual therapist and medication provider as necessary while in program. *Co-Facilitated between Birgit Peralta [facility], [facility], and Kaylan Marrero [facility] 01-09-2022 History of Presen t illness Narrative Summary: DBT Skills weekly group *This service is provided virtually via [employer]. DBT SKILLS WEEKLY GROUP (OUTPATIENT PROGRAM) PROGRESS NOTE SERVICE DATE: January 09 2022. SERVICE TIME: 5:00-6:30pm BEHAVIOR: Appearance: Casually Attired Attitude: Cooperative Affect: Appropriate Mood: Depressed, anxious and Pleasant Orientation: Oriented to person, place and time Thought: Logical to abstract Speech: Normal Eye Contact: Intermittent Describe Change Noted Throughout the Day: NA see above. GROUP THERAPY: Process Therapy Start Time: 5:00 pm Total Time: 90 minutes # of Patients: 9 THERAPEUTIC FOCUS: DBT Skills Weekly Group Module: Emotion Regulation Week 3. Mindfulness activity; attended and processed; reviewed previous skills of recognize name and describe emotions; reviewed new information on opposite to emotion action and PLEASE skill. PROBLEM(S) ADDRESSED: -Mental health issues INTERVENTIONS: DBT Skill group with mindfulness practiced and processed in session. Reviewed previous skill information on recognize name and describe emotions; and new information on new skill of opposite to emotion action and Please skill. RESPONSE: Pt. Did not turn in completed card prior to group/ at beginning of group when prompted by program staff to email completed diary cards. Diary card indicates: Pt. Did not turn in diary card. Pt. Verbally noted safety. Reviewed mood diary to assess for concerns related to medications, SI, changes in mood and daily functioning. Appears attentive, participative and willing. Pt. participated in review of homework and skill education and shared: Pt. Spoke about his difficulties with completing homework and was looking at the papers during check in. Pt. Noted the model for describing emotions and shared he used something like this during the weekend when he woke up in the middle of the night. Pt. Not high anxieties and vulnerabilities about being tired and beliefs that he 'thinks there is something wrong with him and his heart will start racing'. Pt. Said he took a second half of his ativan and feels more tired today than usual and has secondary frustration about his fear response. Pt. Noted, I am so mad that this keeps happening. . Pt. Was open to some prompting questions and notes his continual fear that 'this is the one time that something is wrong with me'. Pt. Noted the nighttime wakings did not start until the 6 week IOP ended. During skill discussion around opposite action, pt noted that he wants to change the emotion of apathy, and can use opposite action by engaging/participating in activities such as participating/speaking up in group. Pt inquired how to apply opposite action to fear when his fear is related to medical/health concerns, stating that he's not sure how to approach that. Patient Affirms Safety and states intention to return for the next treatment session. PLAN: Continue DBT Skills Program and follow individualized treatment plan. Continue with individual therapist and medication provider as necessary while in program. *Co-Facilitated between Birgit Peralta [facility], [facility], and Kaylan Marrero [facility] documented in this encounter [facility] 01-02-2022 Note HNO ID: [id number] Author: ALLIE Mccall Service: Behavioral Health IOP (Intensive Outpatient Program) Author Type: Therapist Type: Progress Notes Filed: 01/02/2022 6:28 PM Note Text: Summary: DBT Skills Weekly Group *This service is provided virtually via [employer]. DBT SKILLS WEEKLY GROUP (OUTPATIENT PROGRAM) PROGRESS NOTE SERVICE DATE: January 02 2022. SERVICE TIME: 5:00-6:30pm BEHAVIOR: Appearance: Casually Attired Attitude: Cooperative Affect: Appropriate Mood: Depressed, anxious and Pleasant Orientation: Oriented to person, place and time Thought: Logical to abstract Speech: Normal Eye Contact: Intermittent Describe Change Noted Throughout the Day: NA see above. GROUP THERAPY: Process Therapy Start Time: 5:00 pm Total Time: 90 minutes # of Patients: 9 THERAPEUTIC FOCUS: DBT Skills Weekly Group Module: Emotion Regulation Week 2. Mindfulness activity; attended and processed; reviewed previous skills of emotion regulation and mindfulness to emotions; reviewed new information on recognize, name and describe emotions. PROBLEM(S) ADDRESSED: -Mental health issues INTERVENTIONS: DBT Skill group with mindfulness practiced and processed in session. Reviewed previous skill information on mindfulness to emotions; reviewed new information on recognize, name and describe emotions. RESPONSE: Pt. Did not turn in completed card prior to group/ at beginning of group when prompted by program staff to email completed diary cards. Diary card indicates: n/a Reviewed mood diary to assess for concerns related to medications, SI, changes in mood and daily functioning. Appears attentive, participative and willing. Pt. participated in review of homework and skill education and shared: That he was able to allow his emotions, especially anxiety, to come and go as a wave, which was effective for him in managing emotional intensity. Pt appeared to struggle with being able to connect this skill usage to skills on his diary card. Pt was open to feedback from the group re: identifying skill usage. Pt shared an example of feeling frustrated when he was putting together a desk, and was listening to the news. He reported being aware that listening to the news compounded his frustration with the desk assembly, so he was able to use his wisemind to turn off the news and focus on the desk assembly. Pt. Spoke in education about his physical sensations when emotions comes on. Pt. Noted his face, body, tension all go up. Pt. Noted he crosses his arms at times when emotion goes up and noted he feels safer that way. Pt. Offered support to other group members in session. Patient Affirms Safety and states intention to return for the next treatment session. PLAN: Continue DBT Skills Program and follow individualized treatment plan. Continue with individual therapist and medication provider as necessary while in program. *Co-Facilitated between Birgit Peralta [facility], [facility] 01-02-2022 History of Presen t illness Narrative Summary: DBT Skills Weekly Group *This service is provided virtually via [employer]. DBT SKILLS WEEKLY GROUP (OUTPATIENT PROGRAM) PROGRESS NOTE SERVICE DATE: January 02 2022. SERVICE TIME: 5:00-6:30pm BEHAVIOR: Appearance: Casually Attired Attitude: Cooperative Affect: Appropriate Mood: Depressed, anxious and Pleasant Orientation: Oriented to person, place and time Thought: Logical to abstract Speech: Normal Eye Contact: Intermittent Describe Change Noted Throughout the Day: NA see above. GROUP THERAPY: Process Therapy Start Time: 5:00 pm Total Time: 90 minutes # of Patients: 9 THERAPEUTIC FOCUS: DBT Skills Weekly Group Module: Emotion Regulation Week 2. Mindfulness activity; attended and processed; reviewed previous skills of emotion regulation and mindfulness to emotions; reviewed new information on recognize, name and describe emotions. PROBLEM(S) ADDRESSED: -Mental health issues INTERVENTIONS: DBT Skill group with mindfulness practiced and processed in session. Reviewed previous skill information on mindfulness to emotions; reviewed new information on recognize, name and describe emotions. RESPONSE: Pt. Did not turn in completed card prior to group/ at beginning of group when prompted by program staff to email completed diary cards. Diary card indicates: n/a Reviewed mood diary to assess for concerns related to medications, SI, changes in mood and daily functioning. Appears attentive, participative and willing. Pt. participated in review of homework and skill education and shared: That he was able to allow his emotions, especially anxiety, to come and go as a wave, which was effective for him in managing emotional intensity. Pt appeared to struggle with being able to connect this skill usage to skills on his diary card. Pt was open to feedback from the group re: identifying skill usage. Pt shared an example of feeling frustrated when he was putting together a desk, and was listening to the news. He reported being aware that listening to the news compounded his frustration with the desk assembly, so he was able to use his wisemind to turn off the news and focus on the desk assembly. Pt. Spoke in education about his physical sensations when emotions comes on. Pt. Noted his face, body, tension all go up. Pt. Noted he crosses his arms at times when emotion goes up and noted he feels safer that way. Pt. Offered support to other group members in session. Patient Affirms Safety and states intention to return for the next treatment session. PLAN: Continue DBT Skills Program and follow individualized treatment plan. Continue with individual therapist and medication provider as necessary while in program. *Co-Facilitated between Birgit Peralta [facility], Kaylan ALEXANDER [facility] documented in this encounter [facility] 12-26-2021 Note HNO ID: [id number] Author: Kristen Marrero [facility] Service: Behavioral Health IOP (Intensive Outpatient Program) Author Type: Therapist Type: Progress Notes Filed: 12/26/2021 6:23 PM Note Text: Summary: DBT Skills Weekly Group *This service is provided virtually via [employer]. DBT SKILLS WEEKLY GROUP (OUTPATIENT PROGRAM) PROGRESS NOTE SERVICE DATE: December 26 2021. SERVICE TIME: 5:00-6:30pm BEHAVIOR: Appearance: Casually Attired Attitude: Cooperative Affect: Appropriate Mood: Depressed, anxious and Pleasant Orientation: Oriented to person, place and time Thought: Logical to abstract Speech: Normal Eye Contact: Intermittent Describe Change Noted Throughout the Day: NA see above. GROUP THERAPY: Process Therapy Start Time: 5:00 pm Total Time: 90 minutes # of Patients:8 THERAPEUTIC FOCUS: DBT Skills Weekly Group Module: Emotion Regulation Week 1: Program policies addressed; Mindfulness practice and processed; identified and verbalized personal goal for emotion regulation module. Reviewed new skill information on Dialectical thinking of emotions. PROBLEM(S) ADDRESSED: -Mental health issues INTERVENTIONS: DBT Skill group with mindfulness practiced and processed in session. Identified and verbalized personal goal for emotion regulation module. Reviewed new skill information on Dialectical thinking of emotions. RESPONSE: Pt. Did not turn in completed card prior to group/ at beginning of group due to it being the first night of DBT Skills sessions. Pt. Expressed a willingness in group to learn about the diary card and begin filling it out next week. Pt. Agreed to mail skills dairy card by Sunday evening or Sunday afternoon. Reviewed mood diary to assess for concerns related to medications, SI, changes in mood and daily functioning. Appears attentive, participative and was 9 minutes late from group. Pt. participated in review of homework and skill education and shared: Pt. Spoke about emotion regulation goals for this module and shared: about his recent diagnosis with borderline personality disorder and noted anger and anxiety issues. Pt. Shared about fear with some of the intrusive thoughts that are coming into his head. Pt. Noted, you can definitely improve it's just a lot of work . Pt noted that people will ask how are you feeling or what are you thinking and it gets interchanged between thoughts and feelings, which makes it confusing to decipher the difference. Pt was observed to relate with others throughout session, as shown by nodding or spontaneously commenting to relate with others' emotional experiences. Patient Affirms Safety and states intention to return for the next treatment session. PLAN: Continue DBT Skills Program and follow individualized treatment plan. Continue with individual therapist and medication provider as necessary while in program. *Co-Facilitated between Birgit Peralta [facility], [facility] and Kaylan Marrero [facility] 12-26-2021 Note HNO ID: [id number] Author: Kristen Marrero [facility] Service: Behavioral Health Outpatient Group Author Type: Therapist Type: Plan of Care Filed: 12/26/2021 3:35 PM Note Text: Summary: DBT Skills Goals Pt reported the following updates and goals for enrollment in DBT Skills program: EMOTION REGULATION UPDATE (What emotions are you currently finding most challenging, and given this/these emotions how are you coping): Anger and Fear. I even found myself going back and forth between them at night INTERPERSONAL RELATIONSHIP EFFECTIVENESS UPDATE (How are your relationships going including relationship with self, any areas of conflict): I think they are improving because I'm becoming more aware of it being a problem. DISTRESS TOLERANCE UPDATE (How are you tolerating distress/stress; are there things in your life currently and/or recently that you have been struggling to accept or feeling willful about): I am trying to avoid stress more. Until I can cope better. PLEASE COMMENT AND REFLECT ON ANY RECENT AND CURRENT SUICIDAL THOUGHTS, SELF INJURY, HOMICIDAL THOUGHTS, AND AGGRESSION: I get intrusive thoughts but nothing I have plans about or anything. What do you want to accomplish while in DBT Skills? I want to have more control over myself. How motivated to change are you feeling now? Slightly Describe what changes you are making currently: Certain Lifestyle changes Have on going follow up with your providers (therapist and prescriber), please state names, next appointment, and contact information: it is a requirement to have an individual therapist for admission to DBT Skills. With ALLIE Germain Dec [address] [facility] Personal strengths: Pt did not answer URGES you want to track and address in Skills group: Mainly just being mean or lashing out. MINDFULNESS GOALS: More mindful of emotions in general EMOTION REGULATION GOALS: Stop panic and anger easier or at least react better DISTRESS TOLERANCE GOALS: Higher stress threshold INTERPERSONAL GOALS: Better People Skills AGREEABLE TO CONTINUE TO REVIEW AND USE YOUR SAFETY PLAN FROM DBT IOP IF/ NEEDED? Yes VERBAL CONSENT FOR EMERGENCY CONTACT (Name, relationship, and contact number): Moon Ferrer / Mothers / [phone] [facility] 12-26-2021 History of Presen t illness Narrative Summary: DBT Skills Weekly Group *This service is provided virtually via [employer]. DBT SKILLS WEEKLY GROUP (OUTPATIENT PROGRAM) PROGRESS NOTE SERVICE DATE: December 26 2021. SERVICE TIME: 5:00-6:30pm BEHAVIOR: Appearance: Casually Attired Attitude: Cooperative Affect: Appropriate Mood: Depressed, anxious and Pleasant Orientation: Oriented to person, place and time Thought: Logical to abstract Speech: Normal Eye Contact: Intermittent Describe Change Noted Throughout the Day: NA see above. GROUP THERAPY: Process Therapy Start Time: 5:00 pm Total Time: 90 minutes # of Patients:8 THERAPEUTIC FOCUS: DBT Skills Weekly Group Module: Emotion Regulation Week 1: Program policies addressed; Mindfulness practice and processed; identified and verbalized personal goal for emotion regulation module. Reviewed new skill information on Dialectical thinking of emotions. PROBLEM(S) ADDRESSED: -Mental health issues INTERVENTIONS: DBT Skill group with mindfulness practiced and processed in session. Identified and verbalized personal goal for emotion regulation module. Reviewed new skill information on Dialectical thinking of emotions. RESPONSE: Pt. Did not turn in completed card prior to group/ at beginning of group due to it being the first night of DBT Skills sessions. Pt. Expressed a willingness in group to learn about the diary card and begin filling it out next week. Pt. Agreed to mail skills dairy card by Sunday evening or Sunday afternoon. Reviewed mood diary to assess for concerns related to medications, SI, changes in mood and daily functioning. Appears attentive, participative and was 9 minutes late from group. Pt. participated in review of homework and skill education and shared: Pt. Spoke about emotion regulation goals for this module and shared: about his recent diagnosis with borderline personality disorder and noted anger and anxiety issues. Pt. Shared about fear with some of the intrusive thoughts that are coming into his head. Pt. Noted, you can definitely improve it's just a lot of work . Pt noted that people will ask how are you feeling or what are you thinking and it gets interchanged between thoughts and feelings, which makes it confusing to decipher the difference. Pt was observed to relate with others throughout session, as shown by nodding or spontaneously commenting to relate with others' emotional experiences. Patient Affirms Safety and states intention to return for the next treatment session. PLAN: Continue DBT Skills Program and follow individualized treatment plan. Continue with individual therapist and medication provider as necessary while in program. *Co-Facilitated between Birgit Peralta [facility], [facility] and Kaylan Marrero [facility]-S documented in this encounter [facility] 12-26-2021 Miscellaneous Notes Summary: DBT Skills Goals Pt reported the following updates and goals for enrollment in DBT Skills program: EMOTION REGULATION UPDATE (What emotions are you currently finding most challenging, and given this/these emotions how are you coping): Anger and Fear. I even found myself going back and forth between them at night INTERPERSONAL RELATIONSHIP EFFECTIVENESS UPDATE (How are your relationships going including relationship with self, any areas of conflict): I think they are improving because I'm becoming more aware of it being a problem. DISTRESS TOLERANCE UPDATE (How are you tolerating distress/stress; are there things in your life currently and/or recently that you have been struggling to accept or feeling willful about): I am trying to avoid stress more. Until I can cope better. PLEASE COMMENT AND REFLECT ON ANY RECENT AND CURRENT SUICIDAL THOUGHTS, SELF INJURY, HOMICIDAL THOUGHTS, AND AGGRESSION: I get intrusive thoughts but nothing I have plans about or anything. What do you want to accomplish while in DBT Skills? I want to have more control over myself. How motivated to change are you feeling now? Slightly Describe what changes you are making currently: Certain Lifestyle changes Have on going follow up with your providers (therapist and prescriber), please state names, next appointment, and contact information: it is a requirement to have an individual therapist for admission to DBT Skills. With ALLIE Germain Dec [address] [facility] Personal strengths: Pt did not answer URGES you want to track and address in Skills group: Mainly just being mean or lashing out. MINDFULNESS GOALS: More mindful of emotions in general EMOTION REGULATION GOALS: Stop panic and anger easier or at least react better DISTRESS TOLERANCE GOALS: Higher stress threshold INTERPERSONAL GOALS: Better People Skills AGREEABLE TO CONTINUE TO REVIEW AND USE YOUR SAFETY PLAN FROM DBT IOP IF/ NEEDED? Yes VERBAL CONSENT FOR EMERGENCY CONTACT (Name, relationship, and contact number): Moon Ferrer / Mothers / [phone] documented in this encounter [facility] 12-15-2021 Miscellaneous Notes Okay early refill tomorrow 12/16/21. Left message for [facility] with authorization to fill Ativan sooner. Jorje from [facility] called and reports that Pts medication Lorazepam states that it can't be filled until 12/18/21. Pt would be past his 30 days and out of med. Jorje was wanting to know if he could fill it on 12/16/21 which would put it at 28 days because they are not open on the weekends and therefore do not deliver on Sat/Sun. Pt was calling in and giving pharmacists a hard time about this, could the prescription please be updated so the Pt does not run out of the med. Please call Jorje back at [phone]. documented in this encounter [facility] 11-23-2021 Note HNO ID: [id number] Author: Alma Loza [facility] Service: Behavioral Health IOP (Intensive Outpatient Program) Author Type: Therapist Type: Progress Notes Filed: 11/23/2021 3:09 PM Note Text: Summary: DBT IOP virtual group *This service is provided virtually via i2we/opendorse. IOP (INTENSIVE OUTPATIENT PROGRAM) PROGRESS NOTE SERVICE DATE: 11/23/21 SERVICE TIME: 9AM-noon BEHAVIOR: Appearance: Well Groomed Attitude: Cooperative, at times ambivalent and distracted Affect: Congruent to mood Mood: Anxious, Irritable and Pleasant Orientation: Oriented to person, place and time Thought:: Preoccupied, dichotomous Speech: Normal Eye Contact: Poor Describe Change Noted Throughout the Day: Pt appeared distracted and preoccupied throughout group, was observed looking at other screen, and would get up to engage in another task at times throughout group (I.e. help mom with something, get coffee). GROUP THERAPY: Process Therapy Start Time: 9:00 am Total Time: 50 minutes # of Patients: 9 THERAPEUTIC FOCUS: Check-In PROBLEM(S) ADDRESSED: -Mental health issues INTERVENTIONS: Review DBT skills practiced, mood symptoms, urge behaviors, self-injury / suicidal / violence behaviors that necessitate need for continued IOP therapy. Review of goals to increase functioning to support discharge to more independent level of care. Reviewed patient-completed daily self-report to assess for concerns related to medications, SI, changes with sleep, appetite, energy level. RESPONSE: Appears participative and willing. Pt reported the following: mood (1=none, 5=extreme) - anger 2, anxiety 4, depression 3, kenji 2, numb 3; urges - none; skills - mindfulness; substance use - denied; medication questions - denied; sleep ? ?ok?; SI/SIB - denied. Pt?s check-in centered on focusing on adhering to an indoor exercise routine, noting that he has been doing push-ups for about 5 days now. Pt indicated that he used mindfulness to body sensations for anxiety and that he had difficulty relaxing after noticing increased body sensations of anxiety, with insight into his tendency to get into a ?negative feedback loop? with focusing too much on this and experiencing increased associated catastrophic thinking, body sensations, etc. Pt provided supportive feedback to other group members throughout the check-in process. Patient Data IOP Daily Questionnaire - not completed today 11/23. IOP Daily 10/26/2021 Today, is your belief in your ability to use your Safety Plan in a crisis at 90%? No Today, have you wished you were or wished you could go to sleep and not wake up? No Today, have you actually had any thoughts of killing yourself? No On a scale of 1 to 10 how would you rate your mood now? 6 Patient Health Questionnaire (PHQ-9) PHQ-9 10/26/2021 11/09/2021 11/23/2021 Score 16 14 15 (0-4) minimal depression, (5-9) mild depression, (10-14) moderate depression, (15-19) moderately severe depression, (20-27) severe depression Process Therapy Start Time: 10:00 am Total Time: 50 minutes # of Patients: 9 THERAPEUTIC FOCUS: Opposite Action to Fear AND Anxiety PROBLEM(S) ADDRESSED: -Mental health issues INTERVENTIONS: Mindfulness practice implemented and processed. Discussion about body sensations, thoughts, and behaviors associated with fear and anxiety, as well as opposite action to fear and anxiety. Group members provided examples about times that they have used or could have used opposite action for fear and anxiety. RESPONSE: Appears participative and distracted. Pt was an active participant throughout the pscyhoeducational discussion on opposite action to fear and anxiety, offering to read the handouts and sharing his thoughts and experiences frequently. Pt reported that the emotion fear and anxiety presents as tunnel-vision thinking for him, which often impacts his concentration and contributes to/amplifies body sensations of anxiety as well. Pt stated that he can begin to use opposite action to fear and anxiety by using his 5 senses/grounding techniques to take in all the information from the present moment to remind himself that he is safe and not in a 911 situation , pertaining to unjustified fear and anxiety. Process Therapy Start Time: 11:00 am Total Time: 50 minutes # of Patients: 8 THERAPEUTIC FOCUS: Opposite Action to Guilt AND Graduation of Member PROBLEM(S) ADDRESSED: -Mental health issues INTERVENTIONS: Discussion about body sensations, thoughts, and behaviors associated with guilt, as well as opposite action to guilt. Group members provided examples about times that they have used or could have used opposite action for guilt. Offered space to celebrate the graduating group member. RESPONSE: Appears (more content not included)... [facility] 11-22-2021 Note HNO ID: [id number] Author: Manuela Issa APRN.OFFSET SECOND PRESS OPERATOR Service: Behavioral Health IOP (Intensive Outpatient Program) Author Type: Nurse Practitioner Type: Progress Notes Filed: 11/22/2021 12:31 PM Note Text: INTENSIVE OUTPATIENT PROGRAM PSYCHIATRIC PROGRESS NOTE VIRTUAL VISIT This is a virtual visit using Alternative video platform. It required patient-provider interaction for the medical decision making as documented below. Persons present: patient and STEM ASSEMBLER provider. The patient or the patient's treasury representative consented to this virtual encounter. CC: My concentration is bad. HPI: Donis Ferrer is a 36 year old Single male with a past history of bipolar disorder, depression, anxiety and ADHD who presents for a follow up while in the DBT IOP program. -During the last appointment, Lamictal was increased to 150mg. Since then, Donis visited with his outpatient nurse practitioner and was started on Effexor 37.5mg. -States that he is being more mindful of anger and anxiety continues to be high. Discussed how the Effexor may be helpful with symptoms of anxiety. -States that he has noticed that his concentration has been getting a lot worse. Wondering if this may be related to troubled sleep or his herbal supplement. Education on potential links between troubled concentration and anxiety was made, however Donis stated that his concentration is worse than his anxiety. Noted that he feels that he is not being heard regarding his troubles with concentration. States that he struggles with spacing out while watching TV, playing video games and when speaking to people. Reports that he was evaluated for ADHD in the past and he trialed Ritalin, however he didn't like the way it made him feel. -Discussed intentions of joining the DBT Skills program. Discussed requirements of having an individual therapist and will be given resources. Will also be placed on the wait list for the skills program. 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 Can't use passes for a month. States that he missed getting his COVID shot due to this and figured it was a sign to not get his COVID vaccination at all. -Reports that sleep is poor some nights and great the other nights. States that on the nights that sleep is poor, he has trouble turning his mind off. -Reports that he did not use his PRN ativan for one day and did fine. States that he slept fairly that night, with some fragmented sleep. Not open to putting off use of ativan for two nights in a row. Somewhat open to trialing every other day. -Reports that he feels frustrated that he is using the skills and that they are not working. Discussed his frustrations with trialing multiple medications in the past and not being able to notice whether medications are effective. -No safety concerns noted at this present time in terms of SI/HI. Sleep: fluctuates; some nights with difficulty falling asleep Interest: diminished Guilt: none voiced Energy: low Concentration: poor Appetite: fair Psychomotor Activity: psychomotor activity was WNL. Suicide: None Phobias: Heights and social anxiety Memory: Fair Anxiety: moderate Obsessions: and dying, germs, illness Compulsions: none and obsessing Jonathan: Denies any symptoms of jonathan PTSD: The patient denies being expose to or witnessing traumatic events. Self Mutilation: Denies Risks and benefits of the medication, including any black box warnings, were discussed with the patient. Current Outpatient Medications on File Prior to Encounter Medication Sig - venlafaxine (EFFEXOR) 37.5 mg tablet Take 0.5 tablets by mouth daily with dinner for 4 days, THEN 1 tablet daily with dinner. - gabapentin (NEURONTIN) 400 mg capsule Take 1 capsule by mouth four times daily for 60 days. - lamoTRIgine (LAMICTAL) 150 mg tablet Take 1 tablet by mouth every evening. - LORazepam (ATIVAN) 1 mg tablet Take 0.5 tablets by mouth every 8 hours as needed (panic attacks) for up to 90 days. #20/month. - MULTIVIT,CA,[id number] #181 ORAL Take by mouth. No current facility-administered medications on file prior to encounter. PAST MEDICAL HISTORY Diagnosis Date - Bilateral artificial lens implant Scleral sutured IOL OU - Congenital cataract of both eyes 1983 - Dislocated IOL (intraocular lens) 03/13/2017 Dislocated scleral sutured IOL OD - Eye disease intraoccular lenses slipping in right eye - Generalized anxiety disorder 07/18/2018 [facility] - History of substance abuse (HCC) 07/18/2018 Opiates, and others snorted, no IVDA. - Hyperopic astigmatism of both eyes - Pseudophakia of both eyes 1984 - Recurrent major depression in partial remission ([facility]) 03/24/2016 [facility] - Tobacco abuse disorder 01/21/2016 Cigarettes smoke, around 10 a day. - Wears glasses PAST SURGICAL HISTORY Procedure Laterality Date - PAST SURGICAL H (more content not included)... [facility] 11-22-2021 Note HNO ID: [id number] Author: Alma Loza [facility] Service: Behavioral Health IOP (Intensive Outpatient Program) Author Type: Therapist Type: Progress Notes Filed: 11/22/2021 1:08 PM Note Text: Summary: DBT IOP virtual group *This service is provided virtually via i2we/opendorse. IOP (INTENSIVE OUTPATIENT PROGRAM) PROGRESS NOTE SERVICE DATE: 11/22/21 SERVICE TIME: 9AM-noon BEHAVIOR: Appearance: Casually dressed Attitude: Cooperative Affect: Congruent to mood Mood: Anxious and Pleasant Orientation: Oriented to person, place and time Thought:: Logical Speech: Normal Eye Contact: Intermittent Describe Change Noted Throughout the Day: Pt at times appeared distracted throughout group, overall attentive and participative. GROUP THERAPY: Process Therapy Start Time: 9:00 am Total Time: 50 minutes # of Patients: 8 THERAPEUTIC FOCUS: Check-In AND Completion of 2-week Assessment Measures PROBLEM(S) ADDRESSED: -Mental health issues INTERVENTIONS: Review DBT skills practiced, mood symptoms, urge behaviors, self-injury / suicidal / violence behaviors that necessitate need for continued IOP therapy. Review of goals to increase functioning to support discharge to more independent level of care. Reviewed patient-completed daily self-report to assess for concerns related to medications, SI, changes with sleep, appetite, energy level. Completion of 2-week measures for PHQ-9, KATIE-7, REX. RESPONSE: Appears participative. Pt reported the following: mood (1=none, 5=extreme) - anger 2, anxiety 4, depression 3, kenji 2, numb 3; urges - yelling (not acted on); skills - STOP, opposite action, mindfulness; substance use - denied; medication questions - denied; sleep - not reported; SI/SIB - intrusive thoughts passive in nature. Pt?s check-in centered on shoveling the driveway completely yesterday, despite ongoing difficulties with concentration, and using skills to not act on the urge to lash out of anger. Pt indicated that repeating myself to someone is a trigger for increased anger that he is more aware of through use of mindfulness. Patient Data Generalized Anxiety Disorder Scale (KATIE-7) KATIE - 7 SCORES 10/26/2021 11/08/2021 11/22/2021 KATIE-7 Score 20 21 19 (0-4) minimal anxiety, (5-9) mild anxiety, (10-14) moderate anxiety, (15-21) severe anxiety IOP Daily Questionnaire IOP Daily 10/26/2021 Today, is your belief in your ability to use your Safety Plan in a crisis at 90%? No Today, have you wished you were or wished you could go to sleep and not wake up? No Today, have you actually had any thoughts of killing yourself? No On a scale of 1 to 10 how would you rate your mood now? 6 Mindful Attention Awareness Scale (REX) Mindful Attention Awareness Scale (REX) 10/26/2021 11/09/2021 11/22/2021 Mindful Attention Awareness Scale Score 43 44 51 Mindful Attention Awareness Scale Mean Score 2.87 2.93 3.4 Patient Health Questionnaire (PHQ-9) - not completed by Pt today as assigned, reassigned for tomorrow. PHQ-9 10/10/2021 10/26/2021 11/09/2021 Score 18 16 14 (0-4) minimal depression, (5-9) mild depression, (10-14) moderate depression, (15-19) moderately severe depression, (20-27) severe depression Process Therapy Start Time: 10:00 am Total Time: 50 minutes # of Patients: 8 THERAPEUTIC FOCUS: IMPROVE Skill PROBLEM(S) ADDRESSED: -Mental health issues INTERVENTIONS: Mindfulness practice implemented and processed. Exploration of the relationship of between distress, suffering and being present to activities using mindfulness, to relieve suffering that cannot be solved now. Discussion of concepts and application of ideas. RESPONSE: Appears attentive, engaged and participative. Pt reported being mindful of tension in his neck and shoulders during the mindfulness practice. Pt was an active participant throughout the psychoeducational discussion on distress tolerance and the IMPROVE skill, offering to read and frequently sharing thoughts. Pt appeared to resonate with the imagery component of IMPROVE, specifically imagining hurtful emotions draining out of him, with insight into the necessity of being mindful to emotions and not suppressing them to do this. Pt [facility] for scheduled medication management appointment at 10:46am. Process Therapy Start Time: 11:00 am Total Time: 50 minutes # of Patients: 6 THERAPEUTIC FOCUS: Open Therapy PROBLEM(S) ADDRESSED: -Mental health issues INTERVENTIONS: Group members engaged in a dialogue centered on the impact that past childhood experiences in their family of origin has had on their challenges with self-love and self-acceptance. Emphasis was placed on use of DBT skills of acting on values, nonjudgment, acceptance, and mindfulness to thoughts (more content not included)... [facility] 11-21-2021 Note HNO ID: [id number] Author: Kristen Marrero [facility] Service: Behavioral Health IOP (Intensive Outpatient Program) Author Type: Therapist Type: Progress Notes Filed: 11/21/2021 10:00 AM Note Text: Summary: DBT IOP cancellation IOP (INTENSIVE OUTPATIENT PROGRAM) PROGRESS NOTE SERVICE DATE: 11/21/21 SERVICE TIME: 9AM Pt notified staff on that he'd be out today due to taking his mother to a procedure. [facility] 11-17-2021 Note HNO ID: [id number] Author: Alma Loza [facility] Service: Behavioral Health IOP (Intensive Outpatient Program) Author Type: Therapist Type: Progress Notes Filed: 11/17/2021 11:42 AM Note Text: Summary: DBT IOP No Show BEHAVIORAL HEALTH IOP (INTENSIVE OUTPATIENT PROGRAM) APPOINTMENT NO SHOW COMMUNICATION DATE: 11/17/2021 Scheduled Intensive Outpatient Program appointment for Donis Ferrer was on 11/17/21 at 9:00am. Pt did not show for DBT IOP. Pt was emailed at 9:56am as first outreach attempt, no reaponse. Called Pt at 10:59am, voicemail left encouraging Pt to contact program regarding reason for absence by end of IOP otherwise emergency contact will be called per program guidelines. Pt responded by sending email to DBT program staff at 11:13am: I'm okay my mind wasn't just cooperating with me I did a lot yesterday and didn't sleep much I plan to be in on Sunday. SIGNATURE: Alma Loza [facility]-S PATIENT NAME: Donis Ferrer DATE: November 17, 2021 TIME: 10:58 AM [facility] 11-16-2021 Note HNO ID: [id number] Author: Alma Loza [facility] Service: Behavioral Health IOP (Intensive Outpatient Program) Author Type: Therapist Type: Plan of Care Filed: 11/16/2021 3:41 PM Note Text: Summary: DBT IOP Weekly Summary IOP (INTENSIVE OUTPATIENT PROGRAM) PROGRESS NOTE TREATMENT TEAM MEETING: WEEKLY TREATMENT PLAN UPDATE ? SERVICE DATE:?11/16/21 SERVICE TIME:?12:15PM ? Safety Assessment: Suicide risk:?low, Pt experiences passive SI/wishes to be at times, none reported this week. Pt identified these thoughts as intrusive and unwanted. Pt has never had planning thoughts and has never acted on suicidal ideations or hurt himself in any way.?Pt will be monitored daily and has a safety plan in place. ? Self-Injury risk:?low, no history of or current urges.?Pt will be monitored daily and has a safety plan in place. ? Aggression:?moderate/high, Pt will frequently verbally lash out of anger at others, often those that he perceives are not adhering to rules/guidelines, expectations, or in response to an unexpected stressor arising that changes plans.?Pt will be monitored daily and has a safety plan in place. ? Weekly update on patient progress summarized:? Pt attended IOP 3 of 4 days thus far, arriving late on Sunday, with plan to attend tomorrow 11/17 for last day of IOP for the week. Pt was presented information on mindfulness to emotions, opposite action to anger and sadness, the FAST skill, and self-acceptance values. Pt continues to experience anxiety however acknowledges his ability to be more skillful in managing the impact that anxiety has on his functioning through use of mindfulness skills (meditation, breathing, mindfulness to emotions and body sensations). Pt has insight into his difficulties with catastrophizing about a body sensation related to anxiety as being reflective of a medical issue. Pt continues to have the urge to lash out and acknowledged the benefits of pausing/using opposite action to anger when noticing body sensations of anger (heat), with ongoing difficulties in application of this noted per Pt report. Despite this, Pt is observed as willing in his treatment, participative in group and also will become distracted/preoccupied with other occurrences in his environment (I.e. pet, computer, hygiene tasks). ? Measurement-Based Assessment:? 10/12/21: PHQ9?=?18, GAD7?=?21, REX?=?Not completed.? 10/26/21:?PHQ9?=?16, GAD7?=?20, REX?=?43? 11/09/21: PHQ9?=?14, GAD7?=?21, REX?=?44 ? Plan: Continue IOP and current treatment plan. Pt to see program nurse 11/22 for follow-up. Pt is established with [facility] prescriber Magaly Alvarez APRN.OFFSET SECOND PRESS OPERATOR,?next appointment 11/21,?and is ambivalent about engaging in individual therapy. Pt will be discharging from IOP next week and will be offered referrals for individual therapy if interested, as he was considering this and exploring with prescriber prior to IOP enrollment, as well as resources for ongoing peer support, as he noted having limited social supports outside of online connections during IOP intake. ? Team members present: ALLIE Crowder-S ALLIE Morgan-S Manuela Issa, MSN, STEM ASSEMBLER, OFFSET SECOND PRESS OPERATOR, PMHNP-[facility] 11-16-2021 Note HNO ID: [id number] Author: ALLIE Crowder Service: Behavioral Health IOP (Intensive Outpatient Program) Author Type: Therapist Type: Progress Notes Filed: 11/16/2021 1:43 PM Note Text: Summary: DBT IOP virtual group *This service is provided virtually via [employer]. IOP (INTENSIVE OUTPATIENT PROGRAM) PROGRESS NOTE SERVICE DATE: 11/16/21 SERVICE TIME: 9AM-noon BEHAVIOR: Appearance: Casually dressed Attitude: Cooperative Affect: Congruent to mood Mood: Anxious, overall pleasant Orientation: Oriented to person, place and time Thought:: Logical, dichotomous Speech: Normal Eye Contact: Intermittent Describe Change Noted Throughout the Day: Pt observed as distracted at times throughout group, with video turned off, and observed to be looking at another screen as well. GROUP THERAPY: Process Therapy Start Time: 9:00 am Total Time: 50 minutes # of Patients: 10 THERAPEUTIC FOCUS: Check-In PROBLEM(S) ADDRESSED: -Mental health issues INTERVENTIONS: Review DBT skills practiced, mood symptoms, urge behaviors, self-injury / suicidal / violence behaviors that necessitate need for continued IOP therapy. Review of goals to increase functioning to support discharge to more independent level of care. Reviewed patient-completed daily self-report to assess for concerns related to medications, SI, changes with sleep, appetite, energy level. RESPONSE: Appears participative and willing. Pt reported the following: mood (1=none, 5=extreme) - anger 2, anxiety 3, depression 2, kenji 2, numb 2; urges - yelling; skills ? STOP, mindfulness, meditation; substance use - denied; medication questions - denied; sleep ? 6 hours; SI/SIB - none reported. Pt?s check-in centered on taking a break from social media, in particular twitter, with reported benefits to decreased anxiety and anger. Pt stated that he tried to meditate ?for a very long time?, which he noted was difficult. Pt indicated that he used skills for over 24 hours to manage his anxiety prior to taking a PRN Ativan, although noted that he had difficulty following asleep due to intrusive and racing thoughts. Pt provided supportive feedback to other group members throughout the check-in process. Patient Data - not answered today 11/16. IOP Daily Questionnaire IOP Daily 10/26/2021 Today, is your belief in your ability to use your Safety Plan in a crisis at 90%? No Today, have you wished you were or wished you could go to sleep and not wake up? No Today, have you actually had any thoughts of killing yourself? No On a scale of 1 to 10 how would you rate your mood now? 6 Process Therapy Start Time: 10:00 am Total Time: 50 minutes # of Patients: 10 THERAPEUTIC FOCUS: Self-respect/FAST Skill PROBLEM(S) ADDRESSED: -Mental health issues INTERVENTIONS: Mindfulness practice implemented and processed. Focus on self-respect and ways to increase self-respect, including setting healthy boundaries and using the FAST skill to improve effectiveness in relationships. RESPONSE: Appears attentive, engaged and participative. Pt was an active participant throughout the psychoeducational dialogue on self-respect and the FAST skill, offering to read and frequently sharing his thoughts. Pt rated his current level of respect for self as 3 on 1-5 scale, with 5 being having high self-respect. Pt identified that one way he can begin practicing self-respect is through spiritual self-respect by prayer, also emphasized the importance of acknowledging his emotions without judgment as a way of showing emotional self-respect. Process Therapy Start Time: 11:00 am Total Time: 50 minutes # of Patients: 8 THERAPEUTIC FOCUS: Open Therapy PROBLEM(S) ADDRESSED: -Mental health issues INTERVENTIONS: Group members engaged in a dialogue centered on using skills to cope with interpersonal/relationship stressors, specifically within their families. Emphasis was placed on the dialectic of acceptance of others' behaviors as being outside of ones control and changing ones response to the actions/lack of actions of others, as well as boundary-setting in relationships that allows for priority of self and overall well-being.?Provided feedback, supportive, reflective listening and facilitated connections between group members?as they explored current?stressors/symptoms through the context of program information. RESPONSE: Appears attentive and passive, primarily actively listened. Pt identified the self-care goal today of going on a walk. Patient Affirms Safety. Patient reaffirmed Crisis Response Plan and can stay safe from harm. PLAN: Continue IOP and current treatment plan. Pt plans to attend IOP tomorrow 11/17. *Co-Facilitated with: Kristen Marrero [facility] SIGNATURE: L (more content not included)... [facility] 11-15-2021 Note O ID: [id number] Author: Kristen Marrero [facility] Service: Behavioral Health IOP (Intensive Outpatient Program) Author Type: Therapist Type: Progress Notes Filed: 11/15/2021 1:38 PM Note Text: Summary: DBT IOP IOP (INTENSIVE OUTPATIENT PROGRAM) PROGRESS NOTE SERVICE DATE: 11/15/21 SERVICE TIME: 9AM-noon BEHAVIOR: Appearance: casually attired Attitude: Cooperative Affect: appropriate Mood: euthymic Orientation: Oriented to person, place and time Thought: abstract Speech: spontaneous Eye Contact: engaged Describe Change Noted Throughout the Day: None noted GROUP THERAPY: Process Therapy Start Time: 9:00 am Total Time: 50 minutes # of Patients: 9 THERAPEUTIC FOCUS: Check-In PROBLEM(S) ADDRESSED: -Mental health issues INTERVENTIONS: Review DBT skills practiced, mood symptoms, urge behaviors, self-injury / suicidal / violence behaviors that necessitate need for continued IOP therapy. Review of individualized goals to increase functioning to support discharge to more independent level of care. Reviewed patient-completed daily self-report to assess for concerns related to medications, SI, changes with sleep, appetite, energy level. Reviewed pt?s individualized treatment plans, with focus on progress made toward treatment goals and assessment of patient needs. RESPONSE: Appears attentive, engaged and participative. Pt reported having extremely high anger, some anxiety, depression and numbness and a little kenji yesterday. Pt reported acting on urges for lashing out. He used relationship repair as a skill. He denied substance use, reported taking medication as prescribed. He reported having ?Ok? sleep of 7 hours an denied SI. Pt noted making a little progress with anxiety, stating that it?s not as ?dominating? as it once was, that he?s more mindful of anxiety and is able to apply skills for coping. He is using mindfulness skills, including mindful breathing and mindfulness to body sensations. Pt recognized a tendency to have difficulty accepting that anxiety is present, stating that his first reaction is to assume that something is wrong with him physically, rather than recognizing that it?s ?only? anxiety. Pt wants to focus on anger management and anger regulation in the coming weeks of IOP. Patient Affirms Safety. Patient Data IOP Daily Questionnaire IOP Daily 10/26/2021 Today, is your belief in your ability to use your Safety Plan in a crisis at 90%? No Today, have you wished you were or wished you could go to sleep and not wake up? No Today, have you actually had any thoughts of killing yourself? No On a scale of 1 to 10 how would you rate your mood now? 6 Process Therapy Start Time: 10:00 am Total Time: 50 minutes # of Patients: 10 THERAPEUTIC FOCUS: Opposite action to anger and sadness PROBLEM(S) ADDRESSED: -Mental health issues INTERVENTIONS: Mindfulness practice implemented and processed. Discussion about opposite action for anger and sadness through reviewing handouts and group examples with application to group member?s specific treatment plan goals. RESPONSE: Appears attentive, engaged and participative. Pt volunteered to read aloud. He participated actively in discussion and noted that he feels heat when angry and often has an urge to punish someone else when angry through yelling. Process Therapy Start Time: 11:00 am Total Time: 50 minutes # of Patients: 10 THERAPEUTIC FOCUS: Coping Skills PROBLEM(S) ADDRESSED: -Mental health issues INTERVENTIONS: Facilitated discussion regarding various group member concerns, with focus on group forming through connecting around diagnoses, emotion regulation challenges and experiences of invalidation from support people. Provided feedback, supportive, reflective listening and facilitated connections between group members as they explored current stressors/symptoms through the context of program information. Assessed safety prior to patients leaving for day. RESPONSE: Appears attentive, engaged and participative. Pt related with others in the group around getting frustrated with his mom. He gave an example of feeling upset with her for continuing to eat their Jermaine ham after two weeks due to concern about bacteria. Pt's goal for today is to meditate. Patient Affirms Safety. Patient reaffirmed Safety Plan and can stay safe from harm. PLAN: Continue IOP and current treatment plan. [facility] 11-14-2021 Note O ID: [id number] Author: Kristen Marrero [facility] Service: Behavioral Health IOP (Intensive Outpatient Program) Author Type: Therapist Type: Progress Notes Filed: 11/14/2021 1:46 PM Note Text: Summary: DBT IOP IOP (INTENSIVE OUTPATIENT PROGRAM) PROGRESS NOTE SERVICE DATE: 11/14/21 SERVICE TIME: 9AM-noon BEHAVIOR: Appearance: casually attired Attitude: Cooperative Affect: appropriate Mood: anxious Orientation: Oriented to person, place and time Thought: abstract Speech: tangential Eye Contact: intermittent Describe Change Noted Throughout the Day: Pt arrived late at the start of group, then arrived late from the break, as well. GROUP THERAPY: Process Therapy Start Time: 9:00 am Total Time: 50 minutes # of Patients: 5 THERAPEUTIC FOCUS: Check-In PROBLEM(S) ADDRESSED: -Mental health issues INTERVENTIONS: Review DBT skills practiced, mood symptoms, urge behaviors, self-injury / suicidal / violence behaviors that necessitate need for continued IOP therapy. Review of individualized goals to increase functioning to support discharge to more independent level of care. Reviewed patient-completed daily self-report to assess for concerns related to medications, SI, changes with sleep, appetite, energy level. RESPONSE: Pt was not present due to oversleeping. Review of pt?s diary card indicated: n/a; pt did not send diary card Patient Data IOP Daily Questionnaire IOP Daily 10/26/2021 Today, is your belief in your ability to use your Safety Plan in a crisis at 90%? No Today, have you wished you were or wished you could go to sleep and not wake up? No Today, have you actually had any thoughts of killing yourself? No On a scale of 1 to 10 how would you rate your mood now? 6 Process Therapy Start Time: 10:00 am Total Time: 50 minutes # of Patients: 7 THERAPEUTIC FOCUS: Mindfulness to emotions PROBLEM(S) ADDRESSED: -Mental health issues INTERVENTIONS: Mindfulness practice implemented and processed. Explored goals of emotion regulation to enhance understanding and application of mindfulness to emotion skills. Read through handouts on letting go of emotional suffering, what good are emotions and introduced emotion record as one additional option for practicing mindfulness to emotions. RESPONSE: Appears attentive, engaged and participative. Pt identified emotion words that he could relate with: dazed and distracted. He volunteered to read aloud and seemed attentive throughout discussion. Pt reported having a goal of emotion regulation of being able to control his emotions and prevent suffering. He resonated with content around barriers to emotion regulation, stating that he often feels he is not heard until he yells, which reinforces his tendency to yell to get his needs met. Process Therapy Start Time: 11:00 am Total Time: 50 minutes # of Patients: 7 THERAPEUTIC FOCUS: Coping Skills PROBLEM(S) ADDRESSED: -Mental health issues INTERVENTIONS: Facilitated discussion regarding various group member concerns, with focus on emotion regulation skills and coping with comparing one's self to others. Provided feedback, supportive, reflective listening and facilitated connections between group members as they explored current stressors/symptoms through the context of program information. Assessed safety prior to patients leaving for day. RESPONSE: Appears attentive, engaged and participative. Pt was observed to arrive late from break, stating that he took a shower on break and lost track of time. He was apologetic, yet when asked how he could be more mindful of the time, appeared dismissive stating, I don't have a clock in the shower. Pt discussed the work he did yesterday to clean out his garage, which is a task he's been wanting to do for awhile. He reported moving slowly but felt good with making progress. He also discussed an increase in anxiety, a goal to take ativan less often and also his ongoing discomfort with physical sensations of anxiety in his chest. He then discussed sleep challenges, stating that he overslept today and has been having difficulty waking in the morning. He denied any sleep hygiene challenges, stating that he goes to bed around the same time each day. His goal for today is to do a little laundry. Patient Affirms Safety. Patient reaffirmed Safety Plan and can stay safe from harm. PLAN: Continue IOP and current treatment plan. *Co-Facilitated with Alma Loza [facility]-S [facility] 11-10-2021 Note [facility] ID: [id number] Author: Alma Loza [facility] Service: Behavioral Health IOP (Intensive Outpatient Program) Author Type: Therapist Type: Plan of Care Filed: 11/10/2021 3:07 PM Note Text: Summary: 30-day Tx Plan Review: DBT IOP TREATMENT PLAN REVIEW OUTLINE Date of Review: 11/10/21 Date of Admission: 10/13/21 Program Name/Level of Care: DBT IOP Current Length of Stay: 4 weeks Identifying Information: Donis Ferrer is a 36 year old male diagnosed with F33.2 Major Depressive Disorder, Recurrent, Severe Without Psychotic Symptoms; F41.1 Generalized Anxiety Disorder; Personality Disorder NOS. The client is scheduled to attend group sessions: Four days per week for approx. 2 weeks, discharging 11/23/21. Observable Symptomatology and Clinical Response: Pt has been addressing increasing emotion regulation, mindfulness, and distress tolerance skills to more effectively manage symptoms of depression and anxiety. Pt is observed having difficulty attending IOP on Mondays, as he has not shown for 3 consecutive Mondays since IOP enrollment, appearing to be related to lack of sleep/change in weekend sleep routine. Pt's depression has decreased since starting IOP, evidenced by assessment measures and self-report, while Pt's anxiety has remained high. Despite this, Pt has learned and regularly implements mindfulness and emotion regulation skills to decrease the impact that his anxiety has on his functioning. Pt most regularly uses meditation, mindfulness to emotions, mindful breathing, IMPROVE, and PLEASE skills, which have been beneficial in making progress with household projects/tasks and prioritizing more regular walking/exercising. Pt continues to have the urge to verbally lash out of anger, and while Pt acts on this urge, he also has gained insight with skills to use to more effectively manage anger and lashing out urges (I.e. QUIQUE, acceptance, opposite action). Pt also experiences passive SI/wishes to be infrequently, which have decreased overall since IOP enrollment. Patient Data Generalized Anxiety Disorder Scale (KATIE-7) KATIE - 7 SCORES 10/12/2021 10/26/2021 11/08/2021 KATIE-7 Score 21 20 21 (0-4) minimal anxiety, (5-9) mild anxiety, (10-14) moderate anxiety, (15-21) severe anxiety Mindful Attention Awareness Scale (REX) Mindful Attention Awareness Scale (REX) 10/25/2021 10/26/2021 11/09/2021 Mindful Attention Awareness Scale Score 49 43 44 Mindful Attention Awareness Scale Mean Score 3.27 2.87 2.93 Patient Health Questionnaire (PHQ-9) PHQ-9 10/10/2021 10/26/2021 11/09/2021 Score 18 16 14 (0-4) minimal depression, (5-9) mild depression, (10-14) moderate depression, (15-19) moderately severe depression, (20-27) severe depression Specific Master Treatment Plan Problems/Goal Status Report: Problem: Increased symptoms of depression and anxiety that interfere with daily functioning related to Pt.?s ability to maintain interpersonal effectiveness, emotion regulation and distress tolerance. Goal-(in patient's own words) I just want to get control of everything. Short Term Objective Statement (behavioral measurable time frame): Pt will utilize daily mindfulness skills to recognize the emotion of anger. Pt will utilize OA to anger each time anger arises to regulate anger and reduce lashing out behaviors. Pt will recognize the relationship between asserting self and reduction in anger and will verbalize by discharge. Date Initiated: 10/13/21 Target Date: 11/23/21 Reviewed 11/10/21: Pt has increased his use of mindfulness skills to identify the emotion anger and associated body sensations and thoughts. Pt continues to frequently experience the urge to verbally lash out of anger and acts on this urge most of the time. Pt recently learned interpersonal effectiveness skills and QUIQUE, reporting a slight reduction in anger after exploring the skill to assert self versus lashing out of anger. Pt has also used acceptance skills in this context, being mindful of what he has control of versus what he does not, which has benefited him in responding to increased anger. Pt recently learned OA and will learn this in the context of anger specifically next week. Intervention - IOP level of care and medication evaluation and treatment. Short Term Objective Statement (behavioral measurable time frame): Pt will be mindful of suicidal thoughts and will endorse on diary card each day. Pt will utilize the TIP and STOP skills, and safety plan on each occasion of suicidal thinking to reduce urge to act on those thoughts. Date Initiated: 10/13/21 Target Date: 11/23/21 Reviewed 11/10/21: Pt was not present in group the day the STOP and TIPP skills were taught; Pt was encouraged to review these skills independently. Pt at [facility] (more content not included)... [facility] 11-10-2021 Note HNO ID: [id number] Author: Alma Loza [facility] Service: Behavioral Health IOP (Intensive Outpatient Program) Author Type: Therapist Type: Progress Notes Filed: 11/10/2021 1:24 PM Note Text: Summary: DBT IOP virtual group *This service is provided virtually via [employer]. ? IOP (INTENSIVE OUTPATIENT PROGRAM) PROGRESS NOTE ? SERVICE DATE: 11/10/21 SERVICE TIME: 9AM-noon ? BEHAVIOR: Appearance: Casually dressed Attitude: Cooperative Affect: Congruent to mood Mood: Anxious and Pleasant Orientation: Oriented to person, place and time Thought:: Logical, preoccupied Speech: Normal Eye Contact: Intermittent Describe Change Noted Throughout the Day: Pt observed as distracted at times throughout group, requiring prompting from therapists to mindfully re-engage in the group process. ? GROUP THERAPY: Process Therapy Start Time: 9:00 am Total Time: 50 minutes # of Patients: 6 ? THERAPEUTIC FOCUS: Check-In ? PROBLEM(S) ADDRESSED: -Mental health issues ? INTERVENTIONS: Review DBT skills practiced, mood symptoms, urge behaviors, self-injury / suicidal / violence behaviors that necessitate need for continued IOP therapy. Review of goals to increase functioning to support discharge to more independent level of care. Reviewed patient-completed daily self-report to assess for concerns related to medications, SI, changes with sleep, appetite, energy level. ? RESPONSE: Appears attentive, participative and willing. Pt reported the following: mood (1=none,?5=extreme) - anger?2,?anxiety?3, depression?3, kenji?3, numb 1;?urges?-? not really ; skills -?distraction, deep breathing; substance use - denied; medication questions - denied; sleep -? good ; SI/SIB -?passive, ignored . Pt?s check-in centered on completing his self-care goal of organizing and cleaning, noting that he was more productive with this than initially anticipated. Pt indicated that instead of taking PRN Ativan in the evening to cope with increased anxiety, he read. Pt also reported using the QUIQUE skill with his mother and expressing feeling sad and scared about her ailing health and her not following medical recommendations for her treatment. ? Patient Data - not completed for today 11/10/21. IOP Daily Questionnaire IOP Daily 10/26/2021 Today, is your belief in your ability to use your Safety Plan in a crisis at 90%? No Today, have you wished you were or wished you could go to sleep and not wake up? No Today, have you actually had any thoughts of killing yourself? No On a scale of 1 to 10 how would you rate your mood now? 6 Process Therapy Start Time: 10:00 am Total Time: 50 minutes # of Patients: 7 ? THERAPEUTIC FOCUS: Personal Values Exploration ? PROBLEM(S) ADDRESSED: -Mental health issues ? INTERVENTIONS: Mindfulness practice implemented and processed. Utilized discussion, presentation, and emotion regulation handouts on values to facilitate mindful awareness to personal values, values clarification and assistance in translating values to goals and actions. Participants completed a worksheet to facilitate action steps on the behaviors they value and want to work on while in therapy. ? RESPONSE: Appears attentive, engaged, participative and willing. Pt was an active participant throughout the psychoeducational discussion on personal values exploration, asking relevant questions and sharing personal experiences frequently. Pt shared that important values to him are intellect, physical fitness, humor, and spirituality. Pt indicated that many of his values developed through life experiences and what he has learned through these experiences. After completing the values clarification exercise, Pt reported that it made me second guess certain values and how important they were to him. Pt stated that he would like to find more meaning in his life, connected to his value of spirituality, and would like to take the action step of studying different religions and allowing time for deep thoughts . ? Process Therapy Start Time: 11:00 am Total Time: 50 minutes # of Patients: 7 ? THERAPEUTIC FOCUS: Application of Acting on Values AND Weekend Planning ? PROBLEM(S) ADDRESSED: -Mental health issues ? INTERVENTIONS: Group members engaged in a dialogue centered on ways to begin acting on values by taking small action steps to align with goals related to what is important to them. Provided feedback, supportive, reflective listening and facilitated connections between group members?as they explored current?stressors/symptoms through the context of program information. Weekend self-care plan was developed to focus on care of mind, body, spirit, emotions, and relationships, as well as ident (more content not included)... [facility] 11-09-2021 Note O ID: [id number] Author: Alma Loza [facility] Service: Behavioral Health IOP (Intensive Outpatient Program) Author Type: Therapist Type: Plan of Care Filed: 11/09/2021 2:56 PM Note Text: Summary: DBT IOP Weekly Summary IOP (INTENSIVE OUTPATIENT PROGRAM) PROGRESS NOTE TREATMENT TEAM MEETING: WEEKLY TREATMENT PLAN UPDATE ? SERVICE DATE:?11/09/21 SERVICE TIME:?12:15PM ? Safety Assessment: Suicide risk:?low, Pt experiences passive SI/wishes to be at times. Pt identified these thoughts as intrusive and unwanted. Pt has never had planning thoughts and has never acted on suicidal ideations or hurt himself in any way.?Pt will be monitored daily and has a safety plan in place. ? Self-Injury risk:?low, no history of or current urges.?Pt will be monitored daily and has a safety plan in place. ? Aggression:?moderate/high, Pt will frequently verbally lash out of anger at others, often those that he perceives are not adhering to rules/guidelines, expectations, or in response to an unexpected stressor arising that changes plans. Pt will be monitored daily and has a safety plan in place. ? Weekly update on patient progress summarized:? Pt attended?IOP 2 days thus far, with plan to attend tomorrow 11/10 for last day of group for the week. Pt did not show on Sunday, observed pattern for Pt as this is his consecutive Sunday Pt has missed IOP. Pt was presented information on opposite to emotion action, QUIQUE, and personal values. Pt continues to experience urges to verbally lash out at others and acts on them, with insight into his tendency to become preoccupied and distracted with the situations that contribute to him lashing out. Despite this, Pt continues to prioritize mindfulness skills throughout the day, and after learning QUIQUE willingly explored how he could use the skill to address the concerns related to Pt lashing out of anger about earlier in the week. Pt acknowledged the benefits on using interpersonal effectiveness skills moving forward to reduce lashing out urges and working towards the goal of being taken seriously by others. Pt's 2-week assessment measures reflect a slight decrease in depression and slight increase in anxiety and mindful awareness. ? Measurement-Based Assessment:? 10/12/21: PHQ9?=?18, GAD7?=?21, REX?=?Not completed.? 10/26/21: PHQ9?=?16, GAD7?=?20, REX?=?43? 11/09/21: PHQ9?=?14, GAD7?=?21, REX?=?44 ? Plan: Continue IOP and current treatment plan. Pt saw program nurse 11/08, medication change of increasing Lamictal to 150mg, follow-up scheduled 11/22. Pt is established with [facility] prescriber Magaly Alvarez APRN.OFFSET SECOND PRESS OPERATOR,?next appointment 11/21,?and is ambivalent about engaging in individual therapy. ? Team members present: Alma Loza [facility] Kristen Marrero [facility] Manuela Issa, MSN, STEM ASSEMBLER, OFFSET SECOND PRESS OPERATOR, PMHNP-[facility] 11-09-2021 Note HNO ID: [id number] Author: [facility] Service: [facility]al Health IOP (Intensive Outpatient Program) Author Type: Therapist Type: Progress Notes Filed: 11/09/2021 1:32 PM Note Text: Summary: DBT IOP virtual group *This service is provided virtually via [employer]. IOP (INTENSIVE OUTPATIENT PROGRAM) PROGRESS NOTE SERVICE DATE: 11/09/21 SERVICE TIME: 9AM-noon BEHAVIOR: Appearance: Casually dressed Attitude: Cooperative Affect: Restricted/blunted Mood: Somewhat depressed, anxious Orientation: Oriented to person, place and time Thought:: Logical, somewhat concrete/dichotomous Speech: Normal Eye Contact: Intermittent Describe Change Noted Throughout the Day: None noted. GROUP THERAPY: Process Therapy Start Time: 9:00 am Total Time: 50 minutes # of Patients: 5 THERAPEUTIC FOCUS: Check-In PROBLEM(S) ADDRESSED: -Mental health issues INTERVENTIONS: Review DBT skills practiced, mood symptoms, urge behaviors, self-injury / suicidal / violence behaviors that necessitate need for continued IOP therapy. Review of goals to increase functioning to support discharge to more independent level of care. Reviewed patient-completed daily self-report to assess for concerns related to medications, SI, changes with sleep, appetite, energy level. Reviewed group therapy guidelines and expectations. RESPONSE: Appears attentive, participative and reluctant. Pt reported the following: mood (1=none, 5=extreme) - anger 3, anxiety 2, depression 4, kenji 2, numb 2; urges ? ?not as bad?; skills ? mindfulness, breathing; substance use - denied; medication questions - denied; sleep ? ?ok?; SI/SIB ? ?intrusive thoughts ? ignored?. Pt?s check-in centered on use of mindfulness and meditation skills to decrease heightened emotions related to speaking with many people yesterday regarding his stressors with securing community transportation. Pt also reported using some acceptance skills to remind himself of what he has control over versus what he does not, which was beneficial in reducing anxiety and irritability in this context. Pt indicated that he did not take his PRN anxiety medication until later in the day, which he attributed to use of other skills to help manage the anxiety prior to using the medication. Pt denied feedback from other group members. Patient Data Generalized Anxiety Disorder Scale (KATIE-7) KATIE - 7 SCORES 10/12/2021 10/26/2021 11/08/2021 KATIE-7 Score 21 20 21 (0-4) minimal anxiety, (5-9) mild anxiety, (10-14) moderate anxiety, (15-21) severe anxiety IOP Daily Questionnaire - not completed for today 11/09/21. IOP Daily 10/26/2021 Today, is your belief in your ability to use your Safety Plan in a crisis at 90%? No Today, have you wished you were or wished you could go to sleep and not wake up? No Today, have you actually had any thoughts of killing yourself? No On a scale of 1 to 10 how would you rate your mood now? 6 Mindful Attention Awareness Scale (REX) Mindful Attention Awareness Scale (REX) 10/25/2021 10/26/2021 11/09/2021 Mindful Attention Awareness Scale Score 49 43 44 Mindful Attention Awareness Scale Mean Score 3.27 2.87 2.93 Patient Health Questionnaire (PHQ-9) - see C-SSRS flowsheet dated 11/09/21 for update pertinent to Pt's response to PHQ-9 question assessing suicidal ideation. Pt experiences passive SI thoughts at times that are intrusive and unwanted by Pt. Pt betty with these thoughts by letting them go (leaves on a stream) and not engaging with them when he experiences them. Pt has a safety plan to utilize if necessary. Pt has not experienced active SI thoughts and has no history of attempts. PHQ-9 10/10/2021 10/26/2021 11/09/2021 Score 18 16 14 (0-4) minimal depression, (5-9) mild depression, (10-14) moderate depression, (15-19) moderately severe depression, (20-27) severe depression Process Therapy Start Time: 10:00 am Total Time: 50 minutes # of Patients: 5 THERAPEUTIC FOCUS: Mindfulness to Interpersonal Skills: QUIQUE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 depression 3, kenji 3, numb 3; urges - alcohol (didn';t act; skills - self-talk, meditation, rest (PLEASE); substance use - urges without action; medication questions - n/a; taken as prescribed; sleep - okay but not great ; SI/SIB - denied. Pt?s check-in related to individualized treatment goals reflected: increased sense of control/management of anxiety and panic. Pt noted that he is able to at times shift his attention away from experiences of anxiety and panic, which have been helpful for him to reduce panic attacks. He noted that he continues to become overwhelmed by body sensations of anxiety, however. He reported a decrease in anger, overall, stating that he is more mindful and able to look at the consequences of his anger more often. Pt reported that he's been doing guided meditation which is helpful, as well as grounding to manage anxiety. He reported not sleeping well recently, with difficulty falling asleep and one nightmare. He is using skills to manage and is accepting that he simply won't sleep sometimes. Pt provided supportive feedback to other group members throughout the check-in process. Patient Affirms Safety. Patient Data IOP Daily Questionnaire IOP Daily 10/26/2021 Today, is your belief in your ability to use your Safety Plan in a crisis at 90%? No Today, have you wished you were or wished you could go to sleep and not wake up? No Today, have you actually had any thoughts of killing yourself? No On a scale of 1 to 10 how would you rate your mood now? 6 Process Therapy Start Time: 10:00 am Total Time: 50 minutes # of Patients: 3 THERAPEUTIC FOCUS: Mindfulness to interpersonal sensitivity PROBLEM(S) ADDRESSED: -Mental health issues INTERVENTIONS: Mindfulness practice implemented and processed. Introduced the concept of mindfulness to relationships, what it is comprised of, and barriers to being mindful in relationships. Provided psychoeducation on validation and how it can enhance mindfulness to relationships, as well as interpersonal sensitivity and ways this can interfere with mindfulness to relationships. Collaboratively explored these concepts as a group with general examples and in connection to members' individualized experiences. RESPONSE: Appears attentive, engaged and participative. Pt shared things that trigger him in relationships, which were somewhat superficial in nature, including feeling annoyed by others speaking in a robotic manner, like they're reading from a script. He reported that he's willing to check out his interpretations and assumptions in relationships by asking, am I interpreting this right? Process Therapy Start Time: 11:00 am Total Time: 50 minutes # of Patients: 3 THERAPEUTIC FOCUS: Coping Skills PROBLEM(S) ADDRESSED: -Mental health issues INTERVENTIONS: Facilitated discussion regarding various group member concerns, with focus on validation and mindfulness to relationships. Provided feedback, supportive, reflective listening and facilitated connections between group members as they explored current stressors/symptoms through the context of program information. Assessed safety prior to patients leaving for day. RESPONSE: Appears attentive, engaged and participative. Pt offered feedback to another group member at times. He (more content not included)... [facility] 10-31-2021 Note HNO ID: [id number] Author: Kristen Marrero [facility] Service: Behavioral Health IOP (Intensive Outpatient Program) Author Type: Therapist Type: Progress Notes Filed: 10/31/2021 1:44 PM Note Text: Summary: DBT IOP No Show IOP (INTENSIVE OUTPATIENT PROGRAM) PROGRESS NOTE SERVICE DATE: 10/31/21 SERVICE TIME: 9AM Pt did not show for group. He was outreached via email at 10AM. Pt responded at 11AM, stating the following: Hi I'm okay I had a bad night sleeping had a panic attack in the middle of the night and couldn't make myself wake up today. I even tried to go to sleep extra early and it just didn't work out but you should see me tomorrow it normally doesn't happen tonight in a row and if it does I'll just power through it I just hate sacrificing sleep Pt is anticipated to attend IOP tomorrow as scheduled. [facility] 10-27-2021 Note O ID: [id number] Author: Alma Loza [facility] Service: Behavioral Health IOP (Intensive Outpatient Program) Author Type: Therapist Type: Progress Notes Filed: 10/27/2021 1:05 PM Note Text: Summary: DBT IOP virtual group *This service is provided virtually via MyChart/Zoom. ? IOP (INTENSIVE OUTPATIENT PROGRAM) PROGRESS NOTE ? SERVICE DATE: 10.27.21 SERVICE TIME: 9AM-noon ? BEHAVIOR: Appearance: Casually dressed Attitude: Cooperative, at times distractible Affect: Congruent to mood Mood: Anxious and Pleasant Orientation: Oriented to person, place and time Thought:: Dichotomous, somewhat preoccupied Speech: Normal Eye Contact: Intermittent Describe Change Noted Throughout the Day: Pt observed as distracted at times throughout group, appeared to be looking at other computer screens, overall participative. ? GROUP THERAPY: Process Therapy Start Time: 9:00 am Total Time: 50 minutes # of Patients: 6 ? THERAPEUTIC FOCUS: Check-In ? PROBLEM(S) ADDRESSED: -Mental health issues ? INTERVENTIONS: Review DBT skills practiced, mood symptoms, urge behaviors, self-injury / suicidal / violence behaviors that necessitate need for continued IOP therapy. Review of goals to increase functioning to support discharge to more independent level of care. Reviewed patient-completed daily self-report to assess for concerns related to medications, SI, changes with sleep, appetite, energy level. ? RESPONSE: Appears participative. Pt reported the following: mood (1=none, 5=extreme) ? anger 3, anxiety 3, depression 3, kenji 2, numb 2; urges ? verbally lash out, mild (not acted on); skills ? mindfulness, ?rest?; substance use - denied; medication questions - denied; sleep ? ?roz?; SI/SIB - denied. Pt?s check-in centered on taking a nap, noting that he has been feeling more fatigued recently. Pt reported that he ?did the bare minimum yesterday?. Pt is exploring ways to increase awareness and mindfulness throughout the day by not engaging as much online, with insight into how he uses social media platforms as a way to distract himself. ? Patient Data - not completed for today 10/27/21. IOP Daily Questionnaire IOP Daily 10/26/2021 Today, is your belief in your ability to use your Safety Plan in a crisis at 90%? No Today, have you wished you were or wished you could go to sleep and not wake up? No Today, have you actually had any thoughts of killing yourself? No On a scale of 1 to 10 how would you rate your mood now? 6 Process Therapy Start Time: 10:00 am Total Time: 50 minutes # of Patients: 5 ? THERAPEUTIC FOCUS: Diathesis-Stress Model ? PROBLEM(S) ADDRESSED: -Mental health issues ? INTERVENTIONS: Mindfulness practice implemented and processed.?Psychoeducation provided and explored on the Diathesis-Stress Model, with emphasis on integrating treatment of mind, body, and spirit through a dialectical approach. Processed application to group members' individualized experiences/treatment plans/goals for treatment. ? RESPONSE: Appears attentive, engaged and participative. Pt indicated that his breathing felt weird during the structured breathing meditation practice. Pt was an active participant throughout the psychoeducational discussion on the diathesis-stress model of treatment, sharing thoughts and personal experiences frequently. Pt identified that he could focus more on care of the body, with emphasis on finding more of a balance between exercise and rest. ? Process Therapy Start Time: 11:00 am Total Time: 50 minutes # of Patients: 5 ? THERAPEUTIC FOCUS: Application of the Diathesis-Stress Model AND Weekend Planning ? PROBLEM(S) ADDRESSED: -Mental health issues ? INTERVENTIONS: Group members engaged in a dialogue centered on application of the Diathesis-Stress Model in their daily life by balancing taking care of mind, body, and spirit. Provided feedback, supportive, reflective listening and facilitated connections between group members?as they explored current?stressors/symptoms through the context of program information. Weekend/holiday self-care plan was developed to focus on care of mind, body, spirit, emotions, and relationships, as well as identify coping skills to manage urge behaviors. ? RESPONSE: Appears participative. Pt reflected on the Diathesis-Stress Model information learned in last group and indicated that it helped him gain insight into some of his past and present experiences. Pt stated that he has been more mindful to body sensations of anxiety, with insight into being hypervigilant to these sensations at times that contribute to Pt being preoccupied with them and not mindful of them. Pt expressed a desire to increase practicing (more content not included)... [facility] 10-26-2021 Note HNO ID: [id number] Author: Deirdre Rivera [facility] Service: Behavioral Health IOP (Intensive Outpatient Program) Author Type: Therapist Type: Plan of Care Filed: 10/26/2021 1:56 PM Note Text: Summary: DBT IOP Weekly Summary IOP (INTENSIVE OUTPATIENT PROGRAM) PROGRESS NOTE TREATMENT TEAM MEETING: WEEKLY TREATMENT PLAN UPDATE ? SERVICE DATE:?10/26/21 SERVICE TIME:?12:15PM ? Safety Assessment: Suicide risk:?low, Pt experiences passive SI/wishes to be at times. Pt identified these thoughts as intrusive and unwanted. Pt has never had planning thoughts and has never acted on suicidal ideations or hurt himself in any way.?Pt will be monitored daily and has a safety plan in place. ? Self-Injury risk:?low, no history of or current urges.?Pt will be monitored daily and has a safety plan in place. ? Aggression:?moderate/high, Pt reported that he will frequently verbally lash out of anger, this week at his mother. Pt will be monitored daily and has a safety plan in place. ? Weekly update on patient progress summarized:? Pt attended?[facility] 2 days thus far, with plan to attend tomorrow 10/27 for last day of group for the week. Pt was presented information on mindfulness to unhealthy self-soothing, check the facts, and the diathesis-stress model of treatment. Pt participates actively; observed to share odd content in group sessions; observed with brighter affect, and observed and verbalizes more kenji; he shares ability to relate to others around healthy anxiety and was able to use the skill- group example of check the facts around this experience; frequently goes on walks and is able to be mindful on his walks. ? Measurement-Based Assessment:? 10/12/21: PHQ9?=?18, GAD7?=?21, REX?=?Not completed.? 12/22/21: PHQ9?=?16, GAD7?=?20, REX?=?43? ? Plan: Continue IOP and current treatment plan. Pt to next see program nurse?11/07/21. Pt is established with [facility] prescriber Magaly Alvarez, STEM ASSEMBLER.OFFSET SECOND PRESS OPERATOR,?last saw 10/10,?and is currently?ambivalent about engaging in individual therapy. ? Team members present: Alma Loza [facility] Kristen Marrero, [facility] Manuela Issa, MSN, STEM ASSEMBLER, OFFSET SECOND PRESS OPERATOR, PMHNP-BC Deirdre Rivera, [facility] Birgit Peralta [facility], [facility] 10-26-2021 Note HNO ID: [id number] Author: Alma Loza [facility] Service: Behavioral Health IOP (Intensive Outpatient Program) Author Type: Therapist Type: Progress Notes Filed: 10/26/2021 2:34 PM Note Text: Summary: DBT IOP virtual group *This service is provided virtually via i2we/opendorse. IOP (INTENSIVE OUTPATIENT PROGRAM) PROGRESS NOTE SERVICE DATE: 10/26/21 SERVICE TIME: 9AM-noon BEHAVIOR: Appearance: Casually dressed Attitude: Cooperative Affect: Congruent to mood Mood: Anxious and Pleasant Orientation: Oriented to person, place and time Thought:: Preoccupied, tangential Speech: Normal Eye Contact: Intermittent Describe Change Noted Throughout the Day: Pt at times distracted throughout group, overall attentive and participative. GROUP THERAPY: Process Therapy Start Time: 9:00 am Total Time: 50 minutes # of Patients: 6 THERAPEUTIC FOCUS: Check-In PROBLEM(S) ADDRESSED: -Mental health issues INTERVENTIONS: Review DBT skills practiced, mood symptoms, urge behaviors, self-injury / suicidal / violence behaviors that necessitate need for continued IOP therapy. Review of goals to increase functioning to support discharge to more independent level of care. Reviewed patient-completed daily self-report to assess for concerns related to medications, SI, changes with sleep, appetite, energy level. RESPONSE: Appears participative. Pt arrive late at 9:08am. Pt reported the following: mood (1=none, 5=extreme) - anger 2, anxiety 4, depression 3, kenji 4, numb 2; urges - take additional medication for anxiety management (not acted on); skills - self-talk, opposite action; substance use - denied; medication questions - denied; sleep - ok ; SI/SIB - denied. Pt?s check-in centered on experiencing a lot of kenji from an unexpected online interaction. Pt stated that he was able to use mindfulness, self-talk/reframing, and opposite action by going on a walk to manage increased anxiety and his urge to take additional medication to manage. Patient Data Generalized Anxiety Disorder Scale (KATIE-7) KATIE - 7 SCORES 08/18/2021 10/12/2021 10/26/2021 KATIE-7 Score 21 21 20 (0-4) minimal anxiety, (5-9) mild anxiety, (10-14) moderate anxiety, (15-21) severe anxiety IOP Daily Questionnaire IOP Daily 10/26/2021 Today, is your belief in your ability to use your Safety Plan in a crisis at 90%? No Today, have you wished you were or wished you could go to sleep and not wake up? No Today, have you actually had any thoughts of killing yourself? No On a scale of 1 to 10 how would you rate your mood now? 6 Mindful Attention Awareness Scale (REX) Mindful Attention Awareness Scale (REX) 10/25/2021 10/26/2021 Mindful Attention Awareness Scale Score 49 43 Mindful Attention Awareness Scale Mean Score 3.27 2.87 Patient Health Questionnaire (PHQ-9) - see C-SSRS flowsheet dated 10/26/21 for update pertinent To Pt's response to PHQ-9 question assessing suicidal ideation. Pt answered 'several days'; Pt experiences passive SI thoughts some days that he identifies are intrusive and unwanted. Pt has no history of active thoughts or attempts. Pt has a safety plan in place to utilize in the future if needed. PHQ-9 10/10/2021 10/10/2021 10/26/2021 Score 18 18 16 (0-4) minimal depression, (5-9) mild depression, (10-14) moderate depression, (15-19) moderately severe depression, (20-27) severe depression Process Therapy Start Time: 10:00 am Total Time: 50 minutes # of Patients: 5 THERAPEUTIC FOCUS: Check the Facts PROBLEM(S) ADDRESSED: -Mental health issues INTERVENTIONS: Mindfulness practice implemented and processed. Facilitated education and discussion about check the facts skill with emphasis on differentiating facts from interpretations or judgments. Processed application to group members' individualized experiences/treatment plans/goals for treatment. RESPONSE: Appears attentive, participative and willing. Pt was an active participant throughout the psychoeducational discussion on check the facts skill, volunteering to illustrate use of the skill by sharing a recent personal experience where his anxiety and fear about having a seizure due to not taking additional medication for anxiety were heightened. Pt reported his level of anxiety and fear as a 80/100, noting that the primary threat of having a seizure would be on his physical and emotional well-being. Pt identified that the worst case scenario would be becoming very ill or sick as a result of having a seizure. Pt explored ways to cope with this worst-case scenario and indicated that he could call an ambulance, seek medical treatment/recommendations from a doctor, and see if he can walk in the moment, noting that he has done this in the past to help himself realiz (more content not included)... [facility] 10-25-2021 Note HNO ID: [id number] Author: Alma Loza [facility] Service: Behavioral Health IOP (Intensive Outpatient Program) Author Type: Therapist Type: Progress Notes Filed: 10/25/2021 1:41 PM Note Text: Summary: DBT IOP virtual group *This service is provided virtually via [employer]. ? IOP (INTENSIVE OUTPATIENT PROGRAM) PROGRESS NOTE ? SERVICE DATE: 10/26/21 SERVICE TIME: 9AM-noon ? BEHAVIOR: Appearance: Casually dressed Attitude: Cooperative, Pt observed using increased humor Affect: Congruent to mood Mood: Anxious Orientation: Oriented to person, place and time Thought:: Dichotomous, tangential at times Speech: Normal, at times rapid Eye Contact: Intermittent Describe Change Noted Throughout the Day: Pt observed as distracted at times throughout IOP, overall attentive and participative. ? GROUP THERAPY: Process Therapy Start Time: 9:00 am Total Time: 50 minutes # of Patients: 4 ? THERAPEUTIC FOCUS: Check-In ? PROBLEM(S) ADDRESSED: -Mental health issues ? INTERVENTIONS: Review DBT skills practiced, mood symptoms, urge behaviors, self-injury / suicidal / violence behaviors that necessitate need for continued IOP therapy. Review of goals to increase functioning to support discharge to more independent level of care. Reviewed patient-completed daily self-report to assess for concerns related to medications, SI, changes with sleep, appetite, energy level. ? RESPONSE: Appears participative. Pt reported the following: mood (1=none,?5=extreme) - anger?5,?anxiety?4, depression?3, kenji?2, numb 2;?urges?-?yelling, lashing out, isolation; skills -?not reported; substance use - denied; medication questions - denied; sleep -? fine ; SI/SIB -? just intrusive thoughts . Pt?s check-in centered on missing IOP yesterday due to poor sleep the night before, as well as how this impacted him lashing out of anger at his mother. Pt expressed I was pretty mean and that he stepped away to calm after lashing out, noting that he apologized to his mother afterwards. Pt had difficulty identifying a skill(s) to use in the future to manage the urge to lash out. ? Patient Data - not all completed as assigned, will reassign for Pt to complete tomorrow 10/26/21. Generalized Anxiety Disorder Scale (KATIE-7) KATIE - 7 SCORES 08/18/2021 10/12/2021 KATIE-7 Score 21 21 (0-4) minimal anxiety, (5-9) mild anxiety, (10-14) moderate anxiety, (15-21) severe anxiety IOP Daily Questionnaire No flowsheet data found. Mindful Attention Awareness Scale (REX) Mindful Attention Awareness Scale (REX) 10/25/2021 Mindful Attention Awareness Scale Score 49 Mindful Attention Awareness Scale Mean Score 3.27 Patient Health Questionnaire (PHQ-9) PHQ-9 09/27/2021 10/10/2021 10/10/2021 Score 22 18 18 (0-4) minimal depression, (5-9) mild depression, (10-14) moderate depression, (15-19) moderately severe depression, (20-27) severe depression ? Process Therapy Start Time: 10:00 am Total Time: 50 minutes # of Patients: 4 ? THERAPEUTIC FOCUS: Mindfulness to Unhealthy Self-Soothing ? PROBLEM(S) ADDRESSED: -Mental health issues ? INTERVENTIONS: Mindfulness practice implemented and processed. Provided psychoeducational information on mindfulness to unhealthy self-soothing behaviors and addictions. Explored dialectically the skills of abstinence and harm reduction as ways to more effectively manage unhealthy self-soothing/addictions. Identified similarities and differences between addict mind, clean mind, and clear mind, and processed connections to group members' individualized urge/addictive behaviors.? ? RESPONSE: Appears participative and somewhat distracted at times. Pt was an active participant throughout the psychoeducational dialogue on mindfulness to unhealthy self-soothing, offering to read and sharing personal experiences throughout. Pt reported that one way he engages in unhealthy self-soothing is by lashing out of anger, referencing the experience he discussed in his check-in. Pt shared that he has used abstinence successfully with nicotine/cigarettes, noting that he went cold turkey and stopping smoking. Pt indicated that he at times has urges and cravings to smoke but has been able to manage them and not smoke. ? Process Therapy Start Time: 11:00 am Total Time: 50 minutes # of Patients: 4 ? THERAPEUTIC FOCUS: Open Therapy ? PROBLEM(S) ADDRESSED: -Mental health issues ? INTERVENTIONS: Group members engaged in a dialogue centered on use of skills to cope with and manage the impact that past trauma and grief have had on their functioning. Emphasis was placed on the stages of grief and this was used to aid members in making connections to current DBT skills they are learning in program. (more content not included)... [facility] 10-25-2021 History of Presen t illness Narrative Summary: DBT IOP virtual group *This service is provided virtually via [employer]. IOP (INTENSIVE OUTPATIENT PROGRAM) PROGRESS NOTE SERVICE DATE: 10/26/21 SERVICE TIME: 9AM-noon BEHAVIOR: Appearance: Casually dressed Attitude: Cooperative, Pt observed using increased humor Affect: Congruent to mood Mood: Anxious Orientation: Oriented to person, place and time Thought:: Dichotomous, tangential at times Speech: Normal, at times rapid Eye Contact: Intermittent Describe Change Noted Throughout the Day: Pt observed as distracted at times throughout IOP, overall attentive and participative. GROUP THERAPY: Process Therapy Start Time: 9:00 am Total Time: 50 minutes # of Patients: 4 THERAPEUTIC FOCUS: Check-In PROBLEM(S) ADDRESSED: -Mental health issues INTERVENTIONS: Review DBT skills practiced, mood symptoms, urge behaviors, self-injury / suicidal / violence behaviors that necessitate need for continued IOP therapy. Review of goals to increase functioning to support discharge to more independent level of care. Reviewed patient-completed daily self-report to assess for concerns related to medications, SI, changes with sleep, appetite, energy level. RESPONSE: Appears participative. Pt reported the following: mood (1=none, 5=extreme) - anger 5, anxiety 4, depression 3, kenji 2, numb 2; urges - yelling, lashing out, isolation; skills - not reported; substance use - denied; medication questions - denied; sleep - fine ; SI/SIB - just intrusive thoughts . Pt s check-in centered on missing IOP yesterday due to poor sleep the night before, as well as how this impacted him lashing out of anger at his mother. Pt expressed I was pretty mean and that he stepped away to calm after lashing out, noting that he apologized to his mother afterwards. Pt had difficulty identifying a skill(s) to use in the future to manage the urge to lash out. Patient Data - not all completed as assigned, will reassign for Pt to complete tomorrow 10/26/21. Generalized Anxiety Disorder Scale (KATIE-7) KATIE - 7 SCORES 08/18/2021 10/12/2021 KATIE-7 Score 21 21 (0-4) minimal anxiety, (5-9) mild anxiety, (10-14) moderate anxiety, (15-21) severe anxiety IOP Daily Questionnaire No flowsheet data found. Mindful Attention Awareness Scale (REX) Mindful Attention Awareness Scale (REX) 10/25/2021 Mindful Attention Awareness Scale Score 49 Mindful Attention Awareness Scale Mean Score 3.27 Patient Health Questionnaire (PHQ-9) PHQ-9 09/27/2021 10/10/2021 10/10/2021 Score 22 18 18 (0-4) minimal depression, (5-9) mild depression, (10-14) moderate depression, (15-19) moderately severe depression, (20-27) severe depression Process Therapy Start Time: 10:00 am Total Time: 50 minutes # of Patients: 4 THERAPEUTIC FOCUS: Mindfulness to Unhealthy Self-Soothing PROBLEM(S) ADDRESSED: -Mental health issues INTERVENTIONS: Mindfulness practice implemented and processed. Provided psychoeducational information on mindfulness to unhealthy self-soothing behaviors and addictions. Explored dialectically the skills of abstinence and harm reduction as ways to more effectively manage unhealthy self-soothing/addictions. Identified similarities and differences between addict mind, clean mind, and clear mind, and processed connections to group members' individualized urge/addictive behaviors. RESPONSE: Appears participative and somewhat distracted at times. Pt was an active participant throughout the psychoeducational dialogue on mindfulness to unhealthy self-soothing, offering to read and sharing personal experiences throughout. Pt reported that one way he engages in unhealthy self-soothing is by lashing out of anger, referencing the experience he discussed in his check-in. Pt shared that he has used abstinence successfully with nicotine/cigarettes, noting that he went cold turkey and stopping smoking. Pt indicated that he at times has urges and cravings to smoke but has been able to manage them and not smoke. Process Therapy Start Time: 11:00 am Total Time: 50 minutes # of Patients: 4 THERAPEUTIC FOCUS: Open Therapy PROBLEM(S) ADDRESSED: -Mental health issues INTERVENTIONS: Group members engaged in a dialogue centered on use of skills to cope with and manage the impact that past trauma and grief have had on their functioning. Emphasis was placed on the stages of grief and this was used to aid members in making connections to current DBT skills they are learning in program. Group members also briefly revisited use of skills to increase remaining in Clear Mind, as discussed in skill hour. Provided feedback, supportive, reflective listening and facilitated connections between group members as they explored current stressors/symptoms through the context of program information. RESPONSE: Appears attentive, engaged and participative. Pt related to other group members regarding the impact of past grief and loss and disclosed that his father was not present in his life growing up. Pt stated that he was angry for many years about this, however learned to accept the reality that his father was not present in his life growing up. Pt expressed that he's not as resentful now towards his father and stated that they have a cordial email relationship. Pt explored various fears he has and the impact these have on his functioning, with emphasis on his fear of not getting his mental health/medication treatment right . Pt state that he would like to use positive self-talk ( nobody's perfect ) and opposite action to anger (removing self from situation) moving forward to remain more in Clear Mind. Pt identified a goal to work towards today as resting to help with rumination/worrying. Patient Affirms Safety. Patient reaffirmed Crisis Response Plan and can stay safe from harm. PLAN: Continue IOP and current treatment plan. Pt plans to attend IOP next tomorrow 10/26/21. *Co-Facilitated with: ALLIE Morgan-S SIGNATURE: JOSE A Crowder PATIENT NAME: Donis Ferrer DATE: October 25, 2021 TIME: 8:38 AM documented in this encounter [facility] 10-24-2021 Note HNO ID: [id number] Author: ALLIE Morgan Service: Behavioral Health IOP (Intensive Outpatient Program) Author Type: Therapist Type: Progress Notes Filed: 10/24/2021 1:31 PM Note Text: Summary: DBT IOP No Show IOP (INTENSIVE OUTPATIENT PROGRAM) PROGRESS NOTE SERVICE DATE: 10/24/22 SERVICE TIME: 9AM Pt did not show for IOP. He was outreached via email at 10:00AM, then by phone at 11AM. Pt replied via email at 11:49AM: Hi sorry I'm ok I will be there tomorrow I had a stressful day and lost some sleep. SIGNATURE: Kristen Marrero [facility] PATIENT NAME: Donis Ferrer DATE: October 24, 2021 TIME: 8:45 AM [facility] 10-20-2021 Note HNO ID: [id number] Author: Alma Loza [facility] Service: Behavioral Health IOP (Intensive Outpatient Program) Author Type: Therapist Type: Progress Notes Filed: 10/20/2021 1:44 PM Note Text: Summary: DBT IOP virtual group *This service is provided virtually via [employer]. IOP (INTENSIVE OUTPATIENT PROGRAM) PROGRESS NOTE SERVICE DATE: 10/20/21 SERVICE TIME: 9AM-noon BEHAVIOR: Appearance: Casually dressed Attitude: Cooperative Affect: Congruent to mood Mood: Anxious and Pleasant Orientation: Oriented to person, place and time Thought:: Dichotomous Speech: Normal Eye Contact: Intermittent Describe Change Noted Throughout the Day: None noted. GROUP THERAPY: Process Therapy Start Time: 9:00 am Total Time: 50 minutes # of Patients: 8 THERAPEUTIC FOCUS: Check-In PROBLEM(S) ADDRESSED: -Mental health issues INTERVENTIONS: Review DBT skills practiced, mood symptoms, urge behaviors, self-injury / suicidal / violence behaviors that necessitate need for continued IOP therapy. Review of goals to increase functioning to support discharge to more independent level of care. Reviewed patient-completed daily self-report to assess for concerns related to medications, SI, changes with sleep, appetite, energy level. RESPONSE: Appears attentive and participative. Pt arrived somewhat late at 9:08am. Pt reported the following: mood (1=none, 5=extreme) - anger 4, anxiety 3, depression 2, kenji 2, numb 2; urges - none; skills - meditation, mindful breathing, walk; substance use - denied; medication questions - denied; sleep - ok ; SI/SIB - denied. Pt?s check-in centered on experiencing the emotion shame after someone did something nice for him. Pt verbalized having insight that this emotion did not fit the facts and was not justified by the situation, as well as acknowledged his tendency to assume that people generally do not have his best interest in mind. Pt indicated that he reflected more on the behavior chain skill that he learned in IOP yesterday and was more mindful of vulnerabilities that were present yesterday, such as being hungry and tired. Patient Data IOP Daily Questionnaire No flowsheet data found. Process Therapy Start Time: 10:00 am Total Time: 50 minutes # of Patients: 7 THERAPEUTIC FOCUS: Relationship Values PROBLEM(S) ADDRESSED: -Mental health issues INTERVENTIONS: Mindfulness practice implemented and processed. Focus on important relationships and identification of behavioral barriers in relationships, values clarification and setting goals in resolving problems or negative emotions that affect relationships. RESPONSE: Appears attentive, engaged, participative and willing. Pt verbalized that he has been trying to do 30 minutes of meditation each day, similar to the mindfulness practice completed in group. Pt was an active participant throughout the dialogue on exploration of relationship values, sharing his thoughts and experiences frequently. Pt identified that his top 3 relationship values are trust, fun, and communication. Pt expressed that the values clarification exercise was challenging for him with having to choose his top 3 values, noting that he has many relationship values. Process Therapy Start Time: 11:00 am Total Time: 50 minutes # of Patients: 5 THERAPEUTIC FOCUS: Weekend Planning AND Graduation of Member PROBLEM(S) ADDRESSED: -Mental health issues INTERVENTIONS: Weekend self-care plan was developed to focus on care of mind, body, spirit, emotions, and relationships, as well as identify coping skills to manage urge behaviors. Offered space to celebrate the graduating group member. Provided feedback, supportive, reflective listening and facilitated connections between group members?as they explored current?stressors/symptoms through the context of program information. RESPONSE: Appears attentive, participative and willing. Pt offered supportive feedback to the graduating group member. Patient Affirms Safety. Patient reaffirmed Crisis Response Plan and can stay safe from harm. Pt developed weekend plan, as identified below: I will care for my body by:?getting enough sleep I will care for my mind by:?mindfulness I will care for my emotions by:? be on watch I will care for my spirit by:?prayer I will care for my relationships by:?reach out to friend I will manage urges and vulnerabilities of?worrying?by:?mindful breathing PLAN: Continue IOP and current treatment plan. Pt plans to attend IOP next on Sunday10/24/21. *Co-Facilitated with: PREET MorganS SIGNATURE: JOSE A Crowder PATIENT NAME: Donis Ferrer DATE: October 20, 2021 TIME: 12:31 PM [facility] 10-20-2021 Note HNO ID: [id number] Author: ALLIE Crowder Service: Behavioral Health IOP (Intensive Outpatient Program) Author Type: Therapist Type: Plan of Care Filed: 10/20/2021 12:54 PM Note Text: Summary: DBT [facility] Weekly Summary IOP (INTENSIVE OUTPATIENT PROGRAM) PROGRESS NOTE TREATMENT TEAM MEETING: WEEKLY TREATMENT PLAN UPDATE ? SERVICE DATE:?10/20/21 SERVICE TIME:?12:15PM ? Safety Assessment: Suicide risk:?low, Pt experiences passive SI/wishes to be at times. Pt identified these thoughts as intrusive and unwanted. Pt has never had planning thoughts and has never acted on suicidal ideations or hurt himself in any way.?Pt will be monitored daily and has a safety plan in place. ? Self-Injury risk:?low, no history of or current urges.?Pt will be monitored daily and has a safety plan in place. ? Aggression:?moderate, Pt reported that he will frequently verbally lash out of anger. Pt denied physical acts or aggression, and rarely is aggressive with property.?Pt worked through this urge in IOP this week using the behavior chain skill for recently verbally lashing out. ? Weekly update on patient progress summarized:? Pt attended?DBT [facility] 4?of 4 days. Pt was presented information on primary and secondary emotions, radical acceptance skills, behavior chain, and relationship values. Pt observed as a more active and willing participant in IOP this week, with increased spontaneity with sharing in all hours of group. Pt has been consistently using mindful breathing and meditation to manage and decrease body sensations of anxiety, with some reported benefits. Pt explored numbness as a secondary emotion to anxiety/fear in this context. Pt is continuing to be mindful of the emotion anxiety and how this often manifests physiologically as distress, as well as contributing to rumination and catastrophizing urges, with insight into his tendency to overidentify with these experiences and label them as medical issues. Pt has also increased his awareness of the impact that vulnerabilities have on his overall mood and functioning, such as being hungry, tired, and having a recent medication change. ? Measurement-Based Assessment:? 10/12/21: PHQ9 =?18, GAD7 =?21, REX =?Not completed.? ? Plan: Continue IOP and current treatment plan. Pt to next see program nurse?11/07/21. Pt is established with [facility] prescriber Magaly Alvarez, DAVIDE.OFFSET SECOND PRESS OPERATOR,?last saw 10/10,?and is currently?ambivalent about engaging in individual therapy. ? Team members present: Alma Loza [facility]-S Kristen Marrero, [facility] Manuela Issa, MSN, STEM ASSEMBLER, OFFSET SECOND PRESS OPERATOR, PMHNP-[facility] 10-19-2021 Note HNO ID: [id number] Author: Alma Loza [facility] Service: Behavioral Health IOP (Intensive Outpatient Program) Author Type: Therapist Type: Progress Notes Filed: 10/19/2021 3:15 PM Note Text: Summary: DBT IOP virtual group *This service is provided virtually via [employer]. IOP (INTENSIVE OUTPATIENT PROGRAM) PROGRESS NOTE SERVICE DATE: 10/19/21 SERVICE TIME: 9AM-noon BEHAVIOR: Appearance: Casually dressed Attitude: Cooperative Affect: Congruent to mood Mood: Anxious and Pleasant Orientation: Oriented to person, place and time Thought:: Dichotomous, concrete Speech: Normal Eye Contact: Intermittent Describe Change Noted Throughout the Day: None noted. GROUP THERAPY: Process Therapy Start Time: 9:00 am Total Time: 50 minutes # of Patients: 6 THERAPEUTIC FOCUS: Check-In PROBLEM(S) ADDRESSED: -Mental health issues INTERVENTIONS: Review DBT skills practiced, mood symptoms, urge behaviors, self-injury / suicidal / violence behaviors that necessitate need for continued IOP therapy. Review of goals to increase functioning to support discharge to more independent level of care. Reviewed patient-completed daily self-report to assess for concerns related to medications, SI, changes with sleep, appetite, energy level. RESPONSE: Appears attentive and participative. Pt reported the following: mood (1=none, 5=extreme) - anger 2, anxiety 4, depression 2, kenji 2, numb 2; urges - none; skills ? ?napped?; substance use - denied; medication questions - none reported; sleep ? ?OK?; SI/SIB - denied. Pt?s check-in centered on using soothing touch to help himself relax prior to sleep (hand on chest), reporting effectiveness with this. Pt also stated that he thinks the recent medication changes to his Lamictal dosage is starting to be effective for him regarding impact on overall mood. Patient Data IOP Daily Questionnaire No flowsheet data found. Process Therapy Start Time: 10:00 am Total Time: 50 minutes # of Patients: 6 THERAPEUTIC FOCUS: Behavior Chain PROBLEM(S) ADDRESSED: -Mental health issues INTERVENTIONS: Mindfulness practice implemented and processed. Introduction to behavior chain analysis, including explaining the difference between thoughts, feelings and behaviors, and exploring common vulnerabilities. Volunteers from the group provided examples to illustrate use of the skill. RESPONSE: Appears attentive, participative and willing. Pt reported that he was mindful of tension and then relaxation in his feet after doing the progressive muscle relaxation exercise. Pt was an active participant throughout the psychoeducational discussion on behavior chain analysis, volunteering to use a recent example of an urge behavior he acted on to illustrate use of the behavior chain skill. Pt reported that he could use this skill with his urge to lash out at others. Pt used the example of recently verbally lashing out at his cats after they were climbing on countertops. Pt identified vulnerabilities of being lonely, tired, and going through medication changes, and stated that he was angry and fatigued prior to lashing out. Pt indicated that he felt guilty and sad after acting on the urge, and noted that being more mindful to his emotions in the future would be a helpful skill to use to reduce the likelihood of lashing out of anger.. Process Therapy Start Time: 11:00 am Total Time: 50 minutes # of Patients: 6 THERAPEUTIC FOCUS: Open Therapy AND Graduation of Member PROBLEM(S) ADDRESSED: -Mental health issues INTERVENTIONS: Group members engaged in a dialogue centered on sharing of individualized experiences regarding exploration and implementation of various mental health treatment options (I.e. individual therapy, group therapy, medication management). Emphasis was placed on use of buck mind and autonomy for making treatment decisions that are in one's best interest. Provided feedback, supportive, reflective listening and facilitated connections between group members?as they explored current?stressors/symptoms through the context of program information. Offered space to celebrate the graduating group member. RESPONSE: Appears attentive and participative. Pt shared about the importance of having the appropriate medication dosage(s) for treatment of symptoms of anxiety for him, also noting the importance of frequently practicing mindful breathing meditations, and how he has noticed slight improvements with his anxiety reducing slightly. 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 Patient Affirms Safety. Patient reaffirmed Crisis Response Plan and can stay safe from harm. PLAN: Continue IOP and current treatment plan. Pt plans to attend IOP tomorro (more content not included)... [facility] 10-18-2021 Note HNO ID: [id number] Author: Kristen Marrero [facility] Service: Behavioral Health IOP (Intensive Outpatient Program) Author Type: Therapist Type: Progress Notes Filed: 10/18/2021 12:48 PM Note Text: Summary: DBT IOP IOP (INTENSIVE OUTPATIENT PROGRAM) PROGRESS NOTE SERVICE DATE: 10/18/21 SERVICE TIME: 9AM-noon BEHAVIOR: Appearance: casually attired Attitude: Cooperative Affect: constricted Mood: Depressed, pleasant, anxious Orientation: Oriented to person, place and time Thought: Abstract, odd Speech: engaged Eye Contact: intermittent Describe Change Noted Throughout the Day: None noted GROUP THERAPY: Process Therapy Start Time: 9:00 am Total Time: 50 minutes # of Patients: 5 THERAPEUTIC FOCUS: Check-In PROBLEM(S) ADDRESSED: -Mental health issues INTERVENTIONS: Review DBT skills practiced, mood symptoms, urge behaviors, self-injury / suicidal / violence behaviors that necessitate need for continued IOP therapy. Review of individualized goals to increase functioning to support discharge to more independent level of care. Reviewed patient-completed daily self-report to assess for concerns related to medications, SI, changes with sleep, appetite, energy level. RESPONSE: Appears attentive, engaged and participative. Pt reported having a little anger, extremely high anxiety, a little depression and no numbness or kenji. Pt denied urges. He reported using meditation and walking for coping. He denied use of substances, reported ?ok? sleep, and denied SI. Pt reflected on treatment goal of ?getting control of everything? and reducing anxiety, noting that he is new to treatment. He expressed ongoing frustration with experiencing discomfort in chest with the experience of anxiety. Pt hypothesized that increased acceptance might help him manage anxiety more effectively. He noted that meditation/deep breathing gives him a ?break? from anxiety. Patient Affirms Safety. Patient Data IOP Daily Questionnaire No flowsheet data found. Process Therapy Start Time: 10:00 am Total Time: 50 minutes # of Patients: 4 THERAPEUTIC FOCUS: Reality Acceptance Skills PROBLEM(S) ADDRESSED: -Mental health issues INTERVENTIONS: Mindfulness practice implemented and processed. Discussion about non-acceptance + pain = suffering, what acceptance might look like in each of their lives and strategies to use to let go of things out of our control. Application of the half-smile skill was briefly discussed in relation to distress tolerance. RESPONSE: Appears attentive, engaged and participative. He volunteered to read aloud during skill discussion. Pt reported often forgetting to breathe during mindfulness practices, including the movement today. He noted having difficulty accepting things at times, stating I hate it when the topic was introduced. He noted that accepting pain in the moment is more manageable to him than accepting that the pain will last into the future. He noted having hope for future medical treatments that will reduce his level of pain. Pt identified starting small with acceptance by accepting that he has to get up early for treatment. Process Therapy Start Time: 11:00 am Total Time: 50 minutes # of Patients: 5 THERAPEUTIC FOCUS: Coping Skills PROBLEM(S) ADDRESSED: -Mental health issues INTERVENTIONS: Facilitated discussion regarding various group member concerns, with focus on coping with the loss of a loved one to suicide. Provided feedback, supportive, reflective listening and facilitated connections between group members as they explored current stressors/symptoms through the context of program information. Assessed safety prior to patients leaving for day. RESPONSE: Appears attentive, engaged and participative. Pt offered feedback to another group member who'd lost someone to suicide recently by sharing about his landlord who'd passed in that manner. Pt seemed to offer compassion to the other group member and acknowledged that it can mess with you. He was observed to speak in a tangential manner later in the session, sharing things about his experience at the grocery store of things seeming bigger than they are, taking on more responsibilities now that his mother is getting older and working to find a different living arrangement with first-floor amenities for his mom. Pt identified a goal for today of relaxing. Patient Affirms Safety. Patient reaffirmed Safety Plan and can stay safe from harm. PLAN: Continue IOP and current treatment plan. *Co-Facilitated with ALLIE Crowder-S SIGNATURE: ALLIE Morgan-S PATIENT NAME: Donis Ferrer DATE: October 18, 2021 TIME: 7:30 AM [facility] 10-17-2021 Note HNO ID: [id number] Author: ALLIE Morgan Service: Behavioral Health IOP (Intensive Outpatient Program) Author Type: Therapist Type: Progress Notes Filed: 10/17/2021 1:25 PM Note Text: Summary: DBT IOP IOP (INTENSIVE OUTPATIENT PROGRAM) PROGRESS NOTE SERVICE DATE: 10/17/21 SERVICE TIME: 9AM-noon BEHAVIOR: Appearance: casually attired Attitude: Cooperative Affect: constricted Mood: Depressed, curious, pleasant Orientation: Oriented to person, place and time Thought: Abstract Speech: participative Eye Contact: Intermittent-appeared distracted at times, possibly looking at another computer screen Describe Change Noted Throughout the Day: None noted GROUP THERAPY: Process Therapy Start Time: 9:00 am Total Time: 50 minutes # of Patients: 5 THERAPEUTIC FOCUS: Check-In PROBLEM(S) ADDRESSED: -Mental health issues INTERVENTIONS: Review DBT skills practiced, mood symptoms, urge behaviors, self-injury / suicidal / violence behaviors that necessitate need for continued IOP therapy. Review of individualized goals to increase functioning to support discharge to more independent level of care. Reviewed patient-completed daily self-report to assess for concerns related to medications, SI, changes with sleep, appetite, energy level. RESPONSE: Appears attentive, engaged and participative. Pt reported some anger, anxiety and depression with no kenji or numbness endorsed for yesterday. Pt noted ?mildly? acted on urges yesterday, including food self-soothing, with meditation as a skill that he used. He noted taking medications as prescribed, having ?ok? sleep-feeling more ?refreshed? today, and ?mild? suicidal thoughts. He endorsed having brief, intrusive, passive suicidal thoughts with application of positive self-talk to manage these thoughts, such as saying, ?I?m safer than I?ve been in the past.? Pt reported enjoying going for walks throughout the weekend, and spending a lot of time on twitter/online. He noted being aware of having some physical and emotional discomfort while sitting at his computer. He expressed feeling ?irritated? that this feeling keeps coming up for him despite talking with his doctor about this. He reported that walking seems to help reduce his attention on the discomfort. He reported finding kenji and meaning in doing ?give-aways? via Twitter. Patient Affirms Safety. Review of pt?s diary card indicated: n/a; pt did not send diary card Patient Data IOP Daily Questionnaire No flowsheet data found. Process Therapy Start Time: 10:00 am Total Time: 50 minutes # of Patients: 5 THERAPEUTIC FOCUS: Mindfulness to primary and secondary emotions PROBLEM(S) ADDRESSED: -Mental health issues INTERVENTIONS: Mindfulness practice implemented and processed. Reviewed mindfulness to emotions, then explored primary and secondary emotions with application to group member's individualized needs and treatment goals. RESPONSE: Appears attentive, engaged and participative. When discussing mindfulness to emotions, pt shared that it bothers him that he experiences physical sensations of anxiety, even when he doesn't feel anxious. He wondered aloud if he might be numbing himself as a secondary emotion. He was somewhat tangential when looking ahead to today's content and reporting that noise is a trigger for him, stating that he worries that he will begin to have auditory hallucinations. Process Therapy Start Time: 11:00 am Total Time: 50 minutes # of Patients: 5 THERAPEUTIC FOCUS: Coping Skills PROBLEM(S) ADDRESSED: -Mental health issues INTERVENTIONS: Facilitated discussion regarding various group member concerns, with focus on coping with physical pain and managing various treatment options for pain and mental health concerns. Provided feedback, supportive, reflective listening and facilitated connections between group members as they explored current stressors/symptoms through the context of program information. Assessed safety prior to patients leaving for day. RESPONSE: Appears somewhat distracted as shown by audible typing and appearing to be looking at a different screen. When this was observed, pt apologized and put himself on mute but did not appear more attentive to the group. Pt related with others in the group and shared his experiences with medications and concerns about becoming dependent on his meds. He noted feeling badly if he misses a dose of a particular medication. Pt reported being mindful of how various things impact the way he feels, including the foods he eats. He noted-with humor-that he might be overanalyzing things. Pt's goal for today is to take a walk and meditate, stating that he does each of these daily and finds them to be helpful. Patient Affirms S (more content not included)... [facility] 10-13-2021 Note HNO ID: [id number] Author: Alma Loza [facility] Service: Behavioral Health IOP (Intensive Outpatient Program) Author Type: Therapist Type: Plan of Care Filed: 10/13/2021 8:04 AM Note Text: Summary: Master Tx Plan for DBT IOP MASTER TREATMENT PLAN SERVICE DATE: 10/13/21 ADMISSION DATE: 10/13/21 SERVICE TIME: 8:00AM ASSESSMENT Diagnosis: F33.2 Major Depressive Disorder, Recurrent, Severe Without Psychotic Symptoms SECONDARY: F41.1 Generalized Anxiety Disorder; F60.9 Unspecified Personality Disorder R/O F45.21 Illness Anxiety Disorder Chief Complaint: I think I'm dying but I'm not. At least medically professional people think I am, they don't think anything is wrong with me. I'm aware that anxiety can cause physical problems, I'm having a very hard time controlling my concentration and my emotions and my panic levels. Or anger. Pt endorsed experiencing worsening symptoms of anxiety, panic, and depression over the last couple of years. Pt has almost daily panic attacks, with no known triggers, and worries excessively about his health and his mother's health. Specifically, Pt is concerned about something being wrong with his heart or brain, noting that he experiences nerve sensitivity and physiological symptoms of increased anxiety. Pt denied avoiding triggers to anxiety and panic and stated that while it is difficult to control his worrying, it has improved slightly recently, possibly due to medication changes. Pt's worrying impacts his sleep and his ability to fall asleep (4-6 hours per night average), and he often feels irritable, on edge, and restless. Pt has been experiencing depression of low energy, I just don't enjoy things the way that I used to. It feels really abnormal to me that I can't even enjoy something like tv or video games. Pt stated that he will have moments of happiness, but I don't really get that . Pt has passive SI/wishes to be , noting that these thoughts are intrusive and unwanted, it's not something I really want to act on, that's more of a last resort sort of thing. Pt has never had planning thoughts and has never acted on suicidal ideations or harmed himself in any way. History of Presenting Complaint: Pt began mental health treatment in his early 30s, noting that his has minimal experience with individual therapy, primarily engaged in medication management. Pt completed an in-person IOP program at [facility] [place] earlier this year. Pt stated that his mental health symptoms started a few years ago, I was under the influence of some substances, and while I was under the influence I freaked myself out, I scared myself, I started talking myself into thinking something was wrong. I had a bad reaction and scared the crap out of myself. Pt noted that he was using marijuana and Dextromethorphan (in cough medicine) at the time. Pt has a history of being treated inpatient 3 times, the last time a few years ago, reporting that he committed myself due to experiencing severe anxiety/panic symptoms and felt like he was not being helped any other way. Pt was treated twice at [facility] [place] and once at [facility]. Patient Goals for Treatment: I just want to get control of everything. I just want to stop freaking out and panicking every day. Urge behaviors: Passive SI, rumination, lashing out of anger, procrastination. Patient Data Generalized Anxiety Disorder Scale (KATIE-7) KATIE - 7 SCORES 08/18/2021 10/12/2021 KATIE-7 Score 21 21 (0-4) minimal anxiety, (5-9) mild anxiety, (10-14) moderate anxiety, (15-21) severe anxiety Mindful Attention Awareness Scale (REX) No flowsheet data found. Patient Health Questionnaire (PHQ-9) PHQ-9 09/27/2021 10/10/2021 10/10/2021 Score 22 18 18 (0-4) minimal depression, (5-9) mild depression, (10-14) moderate depression, (15-19) moderately severe depression, (20-27) severe depression Estimated LOS: 4 days per week for four to six weeks. Problem: Increased symptoms of depression and anxiety that interfere with daily functioning related to Pt.?s ability to maintain interpersonal effectiveness, emotion regulation and distress tolerance. As Evidenced by: PHQ-9 score of 18 and KATIE-7 score of 21. Resulting in (Functional Impact): Difficulties at home and in relationships, Pt reports: I think I'm dying but I'm not. At least medically professional people think I am, they don't think anything is wrong with me. I'm aware that anxiety can cause physical problems, I'm having a very hard time controlling my concentration and my emotions and my panic levels. Or anger. Longterm Goal/Discharge Criteria: PHQ-9, KATIE-7, and REX inventories will indicate a reduction in severity of symptoms, and an increase in mind (more content not included)... [facility] 10-13-2021 Note HNO ID: [id number] Author: Alma Loza [facility] Service: Behavioral Health IOP (Intensive Outpatient Program) Author Type: Therapist Type: Plan of Care Filed: 10/13/2021 12:19 PM Note Text: Summary: DBT IOP Weekly Summary IOP (INTENSIVE OUTPATIENT PROGRAM) PROGRESS NOTE TREATMENT TEAM MEETING: WEEKLY TREATMENT PLAN UPDATE SERVICE DATE: 10/13/21 SERVICE TIME: 12:15PM Safety Assessment: Suicide risk: low, Pt experiences passive SI/wishes to be at times. Pt identified these thoughts as intrusive and unwanted. Pt has never had planning thoughts and has never acted on suicidal ideations or hurt himself in any way. Pt will be monitored daily and has a safety plan in place. Self-Injury risk: low, no history of or current urges. Pt will be monitored daily and has a safety plan in place. Aggression: moderate, Pt reported that he will frequently verbally lash out of anger. Pt denied physical acts or aggression, and rarely is aggressive with property. Weekly update on patient progress summarized: Pt started IOP treatment on 10/13 and was oriented to the IOP process. As part of orientation, Pt was reminded to maintain confidentiality in his space in his home when connected to virtual IOP after his mother was seen in the background briefly. Shortly after this, Pt disconnected from virtual IOP. Pt was outreached by program staff via email with link to rejoin, however Pt did not rejoin and did not reply to this outreach attempt. Measurement-Based Assessment: 10/12/21: PHQ9 - 18, GAD7 - 21, REX - Not completed. Plan: Continue IOP and current treatment plan. Pt to next see program nurse 11/07/21. Pt is established with [facility] prescriber Magaly Alvarez APRN.OFFSET SECOND PRESS OPERATOR, last saw 10/10, and is currently ambivalent about engaging in individual therapy. Team members present: Alma Loza [facility]-S Kristen Marreor [facility] Manuela Issa, MSN, STEM ASSEMBLER, OFFSET SECOND PRESS OPERATOR, PMHNP-BC Deirdre Rivera [facility] Birgit Peralta [facility], ATR [facility] 10-13-2021 Note HNO ID: [id number] Author: Alma Loza [facility] Service: Behavioral Health IOP (Intensive Outpatient Program) Author Type: Therapist Type: Progress Notes Filed: 10/13/2021 12:46 PM Note Text: Summary: DBT IOP virtual group *This service is provided virtually via [facility]. IOP (INTENSIVE OUTPATIENT PROGRAM) PROGRESS NOTE SERVICE DATE: 10/13/21 SERVICE TIME: 9AM-noon BEHAVIOR: Appearance: Casually dressed Attitude: Uncooperative Affect: Congruent to mood Mood: Irritable Orientation: Oriented to person, place and time Thought:: Dichotomous Speech: Normal Eye Contact: Intermittent Describe Change Noted Throughout the Day: Pt appeared distracted throughout group, appearing to be looking at other screen, and disconnected from group after being reminded of group guidelines of maintaining confidentiality (see below). GROUP THERAPY: Process Therapy Start Time: 9:00 am Total Time: 50 minutes # of Patients: 7 THERAPEUTIC FOCUS: Check-In PROBLEM(S) ADDRESSED: -Mental health issues INTERVENTIONS: Review DBT skills practiced, mood symptoms, urge behaviors, self-injury / suicidal / violence behaviors that necessitate need for continued IOP therapy. Review of goals to increase functioning to support discharge to more independent level of care. Reviewed patient-completed daily self-report to assess for concerns related to medications, SI, changes with sleep, appetite, energy level. RESPONSE: Appears attentive, disconnected and resistant. This was Pt's first day in DBT IOP. Pt was oriented to the IOP process.?As part of orientation, Pt was reminded to maintain confidentiality in his space in his home when connected to virtual IOP after his mother was seen in the background briefly. Shortly after this, Pt disconnected from virtual IOP at 9:50am. Pt was outreached by program staff via email with link to rejoin, however Pt did not rejoin and did not reply to this outreach attempt. Patient Data IOP Daily Questionnaire No flowsheet data found. Process Therapy Start Time: 10:00 am Total Time: 50 minutes # of Patients: 6 THERAPEUTIC FOCUS: PLEASE Skill PROBLEM(S) ADDRESSED: -Mental health issues INTERVENTIONS: Mindfulness practice implemented and processed. Utilized discussion and handouts on values to facilitate mindful awareness to personal values regarding one?s health, as well as the connection between physical and emotional health. Group members read and discussed handout on PLEASE skill, identifying areas where they would like to be more mindful of prioritizing in their treatment. RESPONSE: N/A, Pt not present in group. Process Therapy Start Time: 11:00 am Total Time: 50 minutes # of Patients: 6 THERAPEUTIC FOCUS: Open Therapy AND Weekend Planning PROBLEM(S) ADDRESSED: -Mental health issues INTERVENTIONS: Group members engaged in a dialogue centered on management of anxiety and building a life worth living after experiencing unexpected changes resulting in job loss. Provided feedback, supportive, reflective listening and facilitated connections between group members?as they explored current?stressors/symptoms through the context of program information. Weekend self-care plan was developed to focus on care of mind, body, spirit, emotions, and relationships, as well as identify coping skills to manage urge behaviors. RESPONSE: N/A, Pt not present in group. PLAN: Continue IOP and current treatment plan. Pt was emailed by program staff after group ended at 12:06pm: 'Hi Donis, We're sorry that you weren't able to reconnect to group. If you have any questions about completing the skills and mood diary card starting today and continuing over the weekend, please let us know. Have a great weekend, we will plan on seeing you on Sunday, Cyndy *Co-facilitated with Kristen Marrero [facility] SIGNATURE: ALLIE Crowder-S PATIENT NAME: Donis Ferrer DATE: October 13, 2021 TIME: 12:25 PM [facility] 09-21-2021 Miscellaneous Notes Patient is extremely upset and has questions about his recent medication, not helping with mood swings and basically has questions about it. He said he has no rashes and would like to know how long it will take for his medication to work. Please call patient. documented in this encounter [facility] documented as of this encounter (statuses as of 06/19/2022) [facility]01-30-2020 History of Past illness Narrative* Problem Noted Date Resolved Date Obesity, Class II, BMI 35-39.9 12/04/2019 0 06/19/2022 Obesity, Class I, BMI 30-34.9 07/18/2018 Abnormal weight gain 01/21/2016 07/18/2018 Overview: Was 190 lbs when he was working, at [employer]. After stopping work he gained 50 pounds and was at 240 And now he is working out to loose weight and today he was 260. Cannot gauge what he is eating, says average meals Feels tired a lot sleep all the time in the afternoon, Awake at night, has a bad sleeping schedule he also feels depressed. Skin is not really dry. No constipation but not much. And it is not worse than before. Last Assessment & Plan: Was 190 lbs when he was working, at [employer]. After stopping work he gained 50 pounds and was at 240 And now he is working out to loose weight and today he was 260. Cannot gauge what he is eating, says average meals Feels tired a lot sleep all the time in the afternoon, Awake at night, has a bad sleeping schedule he also feels depressed. Skin is not really dry. No constipation but not much. And it is not worse than before. documented as of this encounter (statuses as of 06/20/2022) [facility] History of Past illness Narrative* Problem Noted Date Resolved Date Obesity, Class II, BMI 35-39.9 12/04/2019 0 06/19/2022 Obesity, Class I, BMI 30-34.9 07/18/2018 Abnormal weight gain 01/21/2016 07/18/2018 Overview: Was 190 lbs when he was working, at [employer]. After stopping work he gained 50 pounds and was at 240 And now he is working out to loose weight and today he was 260. Cannot gauge what he is eating, says average meals Feels tired a lot sleep all the time in the afternoon, Awake at night, has a bad sleeping schedule he also feels depressed. Skin is not really dry. No constipation but not much. And it is not worse than before. Last Assessment & Plan: Was 190 lbs when he was working, at [employer]. After stopping work he gained 50 pounds and was at 240 And now he is working out to loose weight and today he was 260. Cannot gauge what he is eating, says average meals Feels tired a lot sleep all the time in the afternoon, Awake at night, has a bad sleeping schedule he also feels depressed. Skin is not really dry. No constipation but not much. And it is not worse than before. documented as of this encounter (statuses as of 06/28/2022) [facility]01-30-[facility] History of Past illness Narrative* Problem Noted Date Resolved Date Obesity, Class II, BMI 35-39.9 12/04/2019 0 06/19/2022 Obesity, Class I, BMI 30-34.9 07/18/2018 Abnormal weight gain 01/21/2016 07/18/2018 Overview: Was 190 lbs when he was working, at [employer]. After stopping work he gained 50 pounds and was at 240 And now he is working out to loose weight and today he was 260. Cannot gauge what he is eating, says average meals Feels tired a lot sleep all the time in the afternoon, Awake at night, has a bad sleeping schedule he also feels depressed. Skin is not really dry. No constipation but not much. And it is not worse than before. Last Assessment & Plan: Was 190 lbs when he was working, at [employer]. After stopping work he gained 50 pounds and was at 240 And now he is working out to loose weight and today he was 260. Cannot gauge what he is eating, says average meals Feels tired a lot sleep all the time in the afternoon, Awake at night, has a bad sleeping schedule he also feels depressed. Skin is not really dry. No constipation but not much. And it is not worse than before. documented as of this encounter (statuses as of 06/30/2022) [facility] History of Past illness Narrative* Problem Noted Date Resolved Date Obesity, Class II, BMI 35-39.9 12/04/2019 0 06/19/2022 Obesity, Class I, BMI 30-34.9 07/18/2018 Abnormal weight gain 01/21/2016 07/18/2018 Overview: Was 190 lbs when he was working, at [employer]. After stopping work he gained 50 pounds and was at 240 And now he is working out to loose weight and today he was 260. Cannot gauge what he is eating, says average meals Feels tired a lot sleep all the time in the afternoon, Awake at night, has a bad sleeping schedule he also feels depressed. Skin is not really dry. No constipation but not much. And it is not worse than before. Last Assessment & Plan: Was 190 lbs when he was working, at [employer]. After stopping work he gained 50 pounds and was at 240 And now he is working out to loose weight and today he was 260. Cannot gauge what he is eating, says average meals Feels tired a lot sleep all the time in the afternoon, Awake at night, has a bad sleeping schedule he also feels depressed. Skin is not really dry. No constipation but not much. And it is not worse than before. documented as of this encounter (statuses as of 07/15/2022) [facility] History of Past illness Narrative* Problem Noted Date Resolved Date Obesity, Class II, BMI 35-39.9 12/04/2019 0 06/19/2022 Obesity, Class I, BMI 30-34.9 07/18/2018 Abnormal weight gain 01/21/2016 07/18/2018 Overview: Was 190 lbs when he was working, at [employer]. After stopping work he gained 50 pounds and was at 240 And now he is working out to loose weight and today he was 260. Cannot gauge what he is eating, says average meals Feels tired a lot sleep all the time in the afternoon, Awake at night, has a bad sleeping schedule he also feels depressed. Skin is not really dry. No constipation but not much. And it is not worse than before. Last Assessment & Plan: Was 190 lbs when he was working, at [employer]. After stopping work he gained 50 pounds and was at 240 And now he is working out to loose weight and today he was 260. Cannot gauge what he is eating, says average meals Feels tired a lot sleep all the time in the afternoon, Awake at night, has a bad sleeping schedule he also feels depressed. Skin is not really dry. No constipation but not much. And it is not worse than before. documented as of this encounter (statuses as of 07/18/2022) [facility]01-[facility]-2020 History of Past illness Narrative* Problem Noted Date Resolved Date Obesity, Class II, BMI 35-39.9 12/04/2019 0 06/19/2022 Obesity, Class I, BMI 30-34.9 07/18/2018 Abnormal weight gain 01/21/2016 07/18/2018 Overview: Was 190 lbs when he was working, at [employer]. After stopping work he gained 50 pounds and was at 240 And now he is working out to loose weight and today he was 260. Cannot gauge what he is eating, says average meals Feels tired a lot sleep all the time in the afternoon, Awake at night, has a bad sleeping schedule he also feels depressed. Skin is not really dry. No constipation but not much. And it is not worse than before. Last Assessment & Plan: Was 190 lbs when he was working, at [employer]. After stopping work he gained 50 pounds and was at 240 And now he is working out to loose weight and today he was 260. Cannot gauge what he is eating, says average meals Feels tired a lot sleep all the time in the afternoon, Awake at night, has a bad sleeping schedule he also feels depressed. Skin is not really dry. No constipation but not much. And it is not worse than before. documented as of this encounter (statuses as of 08/08/2022) [facility] History of Past illness Narrative* Problem Noted Date Resolved Date Obesity, Class II, BMI 35-39.9 12/04/2019 0 06/19/2022 Obesity, Class I, BMI 30-34.9 07/18/2018 Abnormal weight gain 01/21/2016 07/18/2018 Overview: Was 190 lbs when he was working, at [employer]. After stopping work he gained 50 pounds and was at 240 And now he is working out to loose weight and today he was 260. Cannot gauge what he is eating, says average meals Feels tired a lot sleep all the time in the afternoon, Awake at night, has a bad sleeping schedule he also feels depressed. Skin is not really dry. No constipation but not much. And it is not worse than before. Last Assessment & Plan: Was 190 lbs when he was working, at [employer]. After stopping work he gained 50 pounds and was at 240 And now he is working out to loose weight and today he was 260. Cannot gauge what he is eating, says average meals Feels tired a lot sleep all the time in the afternoon, Awake at night, has a bad sleeping schedule he also feels depressed. Skin is not really dry. No constipation but not much. And it is not worse than before. documented as of this encounter (statuses as of 09/01/2022) [facility]01[facility] History of Past illness Narrative* Problem Noted Date Resolved Date Obesity, Class II, BMI 35-39.9 12/04/2019 0 06/19/2022 Obesity, Class I, BMI 30-34.9 07/18/2018 Abnormal weight gain 01/21/2016 07/18/2018 Overview: Was 190 lbs when he was working, at [employer]. After stopping work he gained 50 pounds and was at 240 And now he is working out to loose weight and today he was 260. Cannot gauge what he is eating, says average meals Feels tired a lot sleep all the time in the afternoon, Awake at night, has a bad sleeping schedule he also feels depressed. Skin is not really dry. No constipation but not much. And it is not worse than before. Last Assessment & Plan: Was 190 lbs when he was working, at [employer]. After stopping work he gained 50 pounds and was at 240 And now he is working out to loose weight and today he was 260. Cannot gauge what he is eating, says average meals Feels tired a lot sleep all the time in the afternoon, Awake at night, has a bad sleeping schedule he also feels depressed. Skin is not really dry. No constipation but not much. And it is not worse than before. documented as of this encounter (statuses as of 09/11/2022) [facility] History of Past illness Narrative* Problem Noted Date Resolved Date Obesity, Class II, BMI 35-39.9 12/04/2019 0 06/19/2022 Obesity, Class I, BMI 30-34.9 07/18/2018 Abnormal weight gain 01/21/2016 07/18/2018 Overview: Was 190 lbs when he was working, at [employer]. After stopping work he gained 50 pounds and was at 240 And now he is working out to loose weight and today he was 260. Cannot gauge what he is eating, says average meals Feels tired a lot sleep all the time in the afternoon, Awake at night, has a bad sleeping schedule he also feels depressed. Skin is not really dry. No constipation but not much. And it is not worse than before. Last Assessment & Plan: Was 190 lbs when he was working, at [employer]. After stopping work he gained 50 pounds and was at 240 And now he is working out to loose weight and today he was 260. Cannot gauge what he is eating, says average meals Feels tired a lot sleep all the time in the afternoon, Awake at night, has a bad sleeping schedule he also feels depressed. Skin is not really dry. No constipation but not much. And it is not worse than before. documented as of this encounter (statuses as of 10/29/2022) [facility] History of Past illness Narrative* Problem Noted Date Resolved Date Obesity, Class II, BMI 35-39.9 12/04/2019 0 06/19/2022 Obesity, Class I, BMI 30-34.9 07/18/2018 Abnormal weight gain 01/21/2016 07/18/2018 Overview: Was 190 lbs when he was working, at [employer]. After stopping work he gained 50 pounds and was at 240 And now he is working out to loose weight and today he was 260. Cannot gauge what he is eating, says average meals Feels tired a lot sleep all the time in the afternoon, Awake at night, has a bad sleeping schedule he also feels depressed. Skin is not really dry. No constipation but not much. And it is not worse than before. Last Assessment & Plan: Was 190 lbs when he was working, at [employer]. After stopping work he gained 50 pounds and was at 240 And now he is working out to loose weight and today he was 260. Cannot gauge what he is eating, says average meals Feels tired a lot sleep all the time in the afternoon, Awake at night, has a bad sleeping schedule he also feels depressed. Skin is not really dry. No constipation but not much. And it is not worse than before. documented as of this encounter (statuses as of 11/09/2022) [facility] History of Past illness Narrative* Problem Noted Date Resolved Date Obesity, Class II, BMI 35-39.9 12/04/2019 0 06/19/2022 Obesity, Class I, BMI 30-34.9 07/18/2018 Abnormal weight gain 01/21/2016 07/18/2018 Overview: Was 190 lbs when he was working, at [employer]. After stopping work he gained 50 pounds and was at 240 And now he is working out to loose weight and today he was 260. Cannot gauge what he is eating, says average meals Feels tired a lot sleep all the time in the afternoon, Awake at night, has a bad sleeping schedule he also feels depressed. Skin is not really dry. No constipation but not much. And it is not worse than before. Last Assessment & Plan: Was 190 lbs when he was working, at [employer]. After stopping work he gained 50 pounds and was at 240 And now he is working out to loose weight and today he was 260. Cannot gauge what he is eating, says average meals Feels tired a lot sleep all the time in the afternoon, Awake at night, has a bad sleeping schedule he also feels depressed. Skin is not really dry. No constipation but not much. And it is not worse than before. documented as of this encounter (statuses as of 11/23/2022) [facility]01[facility] History of Past illness Narrative* Problem Noted Date Resolved Date Obesity, Class II, BMI 35-39.9 12/04/2019 0 06/19/2022 Obesity, Class I, BMI 30-34.9 07/18/2018 Abnormal weight gain 01/21/2016 07/18/2018 Overview: Was 190 lbs when he was working, at [employer]. After stopping work he gained 50 pounds and was at 240 And now he is working out to loose weight and today he was 260. Cannot gauge what he is eating, says average meals Feels tired a lot sleep all the time in the afternoon, Awake at night, has a bad sleeping schedule he also feels depressed. Skin is not really dry. No constipation but not much. And it is not worse than before. Last Assessment & Plan: Was 190 lbs when he was working, at [employer]. After stopping work he gained 50 pounds and was at 240 And now he is working out to loose weight and today he was 260. Cannot gauge what he is eating, says average meals Feels tired a lot sleep all the time in the afternoon, Awake at night, has a bad sleeping schedule he also feels depressed. Skin is not really dry. No constipation but not much. And it is not worse than before. documented as of this encounter (statuses as of 12/11/2022) [facility] History of Past illness Narrative* Problem Noted Date Resolved Date Obesity, Class II, BMI 35-39.9 12/04/2019 0 06/19/2022 Obesity, Class I, BMI 30-34.9 07/18/2018 Abnormal weight gain 01/21/2016 07/18/2018 Overview: Was 190 lbs when he was working, at [employer]. After stopping work he gained 50 pounds and was at 240 And now he is working out to loose weight and today he was 260. Cannot gauge what he is eating, says average meals Feels tired a lot sleep all the time in the afternoon, Awake at night, has a bad sleeping schedule he also feels depressed. Skin is not really dry. No constipation but not much. And it is not worse than before. Last Assessment & Plan: Was 190 lbs when he was working, at [employer]. After stopping work he gained 50 pounds and was at 240 And now he is working out to loose weight and today he was 260. Cannot gauge what he is eating, says average meals Feels tired a lot sleep all the time in the afternoon, Awake at night, has a bad sleeping schedule he also feels depressed. Skin is not really dry. No constipation but not much. And it is not worse than before. documented as of this encounter (statuses as of 02/12/2023) [facility] History of Past illness Narrative* Problem Noted Date Resolved Date Obesity, Class II, BMI 35-39.9 12/04/2019 0 06/19/2022 Obesity, Class I, BMI 30-34.9 07/18/2018 Abnormal weight gain 01/21/2016 07/18/2018 Overview: Was 190 lbs when he was working, at [employer]. After stopping work he gained 50 pounds and was at 240 And now he is working out to loose weight and today he was 260. Cannot gauge what he is eating, says average meals Feels tired a lot sleep all the time in the afternoon, Awake at night, has a bad sleeping schedule he also feels depressed. Skin is not really dry. No constipation but not much. And it is not worse than before. Last Assessment & Plan: Was 190 lbs when he was working, at [employer]. After stopping work he gained 50 pounds and was at 240 And now he is working out to loose weight and today he was 260. Cannot gauge what he is eating, says average meals Feels tired a lot sleep all the time in the afternoon, Awake at night, has a bad sleeping schedule he also feels depressed. Skin is not really dry. No constipation but not much. And it is not worse than before. documented as of this encounter (statuses as of 02/13/2023) [facility] History of Past illness Narrative* Problem Noted Date Resolved Date Obesity, Class II, BMI 35-39.9 12/04/2019 0 06/19/2022 Obesity, Class I, BMI 30-34.9 07/18/2018 Abnormal weight gain 01/21/2016 07/18/2018 Overview: Was 190 lbs when he was working, at [employer]. After stopping work he gained 50 pounds and was at 240 And now he is working out to loose weight and today he was 260. Cannot gauge what he is eating, says average meals Feels tired a lot sleep all the time in the afternoon, Awake at night, has a bad sleeping schedule he also feels depressed. Skin is not really dry. No constipation but not much. And it is not worse than before. Last Assessment & Plan: Was 190 lbs when he was working, at [employer]. After stopping work he gained 50 pounds and was at 240 And now he is working out to loose weight and today he was 260. Cannot gauge what he is eating, says average meals Feels tired a lot sleep all the time in the afternoon, Awake at night, has a bad sleeping schedule he also feels depressed. Skin is not really dry. No constipation but not much. And it is not worse than before. documented as of this encounter (statuses as of 02/14/2023) [facility]01[facility] History of Past illness Narrative* Problem Noted Date Resolved Date Obesity, Class II, BMI 35-39.9 12/04/2019 0 06/19/2022 Obesity, Class I, BMI 30-34.9 07/18/2018 Abnormal weight gain 01/21/2016 07/18/2018 Overview: Was 190 lbs when he was working, at [employer]. After stopping work he gained 50 pounds and was at 240 And now he is working out to loose weight and today he was 260. Cannot gauge what he is eating, says average meals Feels tired a lot sleep all the time in the afternoon, Awake at night, has a bad sleeping schedule he also feels depressed. Skin is not really dry. No constipation but not much. And it is not worse than before. Last Assessment & Plan: Was 190 lbs when he was working, at [employer]. After stopping work he gained 50 pounds and was at 240 And now he is working out to loose weight and today he was 260. Cannot gauge what he is eating, says average meals Feels tired a lot sleep all the time in the afternoon, Awake at night, has a bad sleeping schedule he also feels depressed. Skin is not really dry. No constipation but not much. And it is not worse than before. documented as of this encounter (statuses as of 02/21/2023) [facility] History of Past illness Narrative* Problem Noted Date Resolved Date Obesity, Class II, BMI 35-39.9 12/04/2019 0 06/19/2022 Obesity, Class I, BMI 30-34.9 07/18/2018 Abnormal weight gain 01/21/2016 07/18/2018 Overview: Was 190 lbs when he was working, at [employer]. After stopping work he gained 50 pounds and was at 240 And now he is working out to loose weight and today he was 260. Cannot gauge what he is eating, says average meals Feels tired a lot sleep all the time in the afternoon, Awake at night, has a bad sleeping schedule he also feels depressed. Skin is not really dry. No constipation but not much. And it is not worse than before. Last Assessment & Plan: Was 190 lbs when he was working, at [employer]. After stopping work he gained 50 pounds and was at 240 And now he is working out to loose weight and today he was 260. Cannot gauge what he is eating, says average meals Feels tired a lot sleep all the time in the afternoon, Awake at night, has a bad sleeping schedule he also feels depressed. Skin is not really dry. No constipation but not much. And it is not worse than before. documented as of this encounter (statuses as of 02/23/2023) [facility] History of Past illness Narrative* Problem Noted Date Resolved Date Obesity, Class II, BMI 35-39.9 12/04/2019 0 06/19/2022 Obesity, Class I, BMI 30-34.9 07/18/2018 Abnormal weight gain 01/21/2016 07/18/2018 Overview: Was 190 lbs when he was working, at [employer]. After stopping work he gained 50 pounds and was at 240 And now he is working out to loose weight and today he was 260. Cannot gauge what he is eating, says average meals Feels tired a lot sleep all the time in the afternoon, Awake at night, has a bad sleeping schedule he also feels depressed. Skin is not really dry. No constipation but not much. And it is not worse than before. Last Assessment & Plan: Was 190 lbs when he was working, at [employer]. After stopping work he gained 50 pounds and was at 240 And now he is working out to loose weight and today he was 260. Cannot gauge what he is eating, says average meals Feels tired a lot sleep all the time in the afternoon, Awake at night, has a bad sleeping schedule he also feels depressed. Skin is not really dry. No constipation but not much. And it is not worse than before. documented as of this encounter (statuses as of 03/15/2023) [facility] History of Past illness Narrative* Problem Noted Date Resolved Date Obesity, Class II, BMI 35-39.9 12/04/2019 0 06/19/2022 Obesity, Class I, BMI 30-34.9 07/18/2018 Abnormal weight gain 01/21/2016 07/18/2018 Overview: Was 190 lbs when he was working, at [employer]. After stopping work he gained 50 pounds and was at 240 And now he is working out to loose weight and today he was 260. Cannot gauge what he is eating, says average meals Feels tired a lot sleep all the time in the afternoon, Awake at night, has a bad sleeping schedule he also feels depressed. Skin is not really dry. No constipation but not much. And it is not worse than before. Last Assessment & Plan: Was 190 lbs when he was working, at [employer]. After stopping work he gained 50 pounds and was at 240 And now he is working out to loose weight and today he was 260. Cannot gauge what he is eating, says average meals Feels tired a lot sleep all the time in the afternoon, Awake at night, has a bad sleeping schedule he also feels depressed. Skin is not really dry. No constipation but not much. And it is not worse than before. documented as of this encounter (statuses as of 05/10/2023) [facility] History of Past illness Narrative* Problem Noted Date Diagnosed Date Resolved Date Obesity, Class II, BMI 35-39.9 12/04/2019 06/19/2022 Obesity, Class I, BMI 30-34.9 07/18/2018 12/04/2019 Abnormal weight gain 01/21/2016 018 Overview: Was 190 lbs when he was working, at [employer]. After stopping work he gained 50 pounds and was at 240 And now he is working out to loose weight and today he was 260. Cannot gauge what he is eating, says average meals Feels tired a lot sleep all the time in the afternoon, Awake at night, has a bad sleeping schedule he also feels depressed. Skin is not really dry. No constipation but not much. And it is not worse than before. Last Assessment & Plan: Was 190 lbs when he was working, at [employer]. After stopping work he gained 50 pounds and was at 240 And now he is working out to loose weight and today he was 260. Cannot gauge what he is eating, says average meals Feels tired a lot sleep all the time in the afternoon, Awake at night, has a bad sleeping schedule he also feels depressed. Skin is not really dry. No constipation but not much. And it is not worse than before. documented as of this encounter (statuses as of 07/17/2023) [facility] History of Past illness Narrative* Problem Noted Date Diagnosed Date Resolved Date Obesity, Class II, BMI 35-39.9 12/04/2019 06/19/2022 Obesity, Class I, BMI 30-34.9 07/18/2018 12/04/2019 Abnormal weight gain 01/21/2016 018 Overview: Was 190 lbs when he was working, at [employer]. After stopping work he gained 50 pounds and was at 240 And now he is working out to loose weight and today he was 260. Cannot gauge what he is eating, says average meals Feels tired a lot sleep all the time in the afternoon, Awake at night, has a bad sleeping schedule he also feels depressed. Skin is not really dry. No constipation but not much. And it is not worse than before. Last Assessment & Plan: Was 190 lbs when he was working, at [employer]. After stopping work he gained 50 pounds and was at 240 And now he is working out to loose weight and today he was 260. Cannot gauge what he is eating, says average meals Feels tired a lot sleep all the time in the afternoon, Awake at night, has a bad sleeping schedule he also feels depressed. Skin is not really dry. No constipation but not much. And it is not worse than before. documented as of this encounter (statuses as of 07/28/2023) [facility] History of Past illness Narrative* Problem Noted Date Diagnosed Date Resolved Date Obesity, Class II, BMI 35-39.9 12/04/2019 06/19/2022 Obesity, Class I, BMI 30-34.9 07/18/2018 12/04/2019 Abnormal weight gain 01/21/2016 018 Overview: Was 190 lbs when he was working, at [employer]. After stopping work he gained 50 pounds and was at 240 And now he is working out to loose weight and today he was 260. Cannot gauge what he is eating, says average meals Feels tired a lot sleep all the time in the afternoon, Awake at night, has a bad sleeping schedule he also feels depressed. Skin is not really dry. No constipation but not much. And it is not worse than before. Last Assessment & Plan: Was 190 lbs when he was working, at [employer]. After stopping work he gained 50 pounds and was at 240 And now he is working out to loose weight and today he was 260. Cannot gauge what he is eating, says average meals Feels tired a lot sleep all the time in the afternoon, Awake at night, has a bad sleeping schedule he also feels depressed. Skin is not really dry. No constipation but not much. And it is not worse than before. documented as of this encounter (statuses as of 08/04/2023) [facility] History of Past illness Narrative* Problem Noted Date Diagnosed Date Resolved Date Obesity, Class II, BMI 35-39.9 12/04/2019 06/19/2022 Obesity, Class I, BMI 30-34.9 07/18/2018 12/04/2019 Abnormal weight gain 01/21/2016 018 Overview: Was 190 lbs when he was working, at [employer]. After stopping work he gained 50 pounds and was at 240 And now he is working out to loose weight and today he was 260. Cannot gauge what he is eating, says average meals Feels tired a lot sleep all the time in the afternoon, Awake at night, has a bad sleeping schedule he also feels depressed. Skin is not really dry. No constipation but not much. And it is not worse than before. Last Assessment & Plan: Was 190 lbs when he was working, at [employer]. After stopping work he gained 50 pounds and was at 240 And now he is working out to loose weight and today he was 260. Cannot gauge what he is eating, says average meals Feels tired a lot sleep all the time in the afternoon, Awake at night, has a bad sleeping schedule he also feels depressed. Skin is not really dry. No constipation but not much. And it is not worse than before. documented as of this encounter (statuses as of 08/04/2023) [facility] History of Past illness Narrative* Problem Noted Date Diagnosed Date Resolved Date Obesity, Class II, BMI 35-39.9 12/04/2019 06/19/2022 Obesity, Class I, BMI 30-34.9 07/18/2018 12/04/2019 Abnormal weight gain 01/21/2016 018 Overview: Was 190 lbs when he was working, at [employer]. After stopping work he gained 50 pounds and was at 240 And now he is working out to loose weight and today he was 260. Cannot gauge what he is eating, says average meals Feels tired a lot sleep all the time in the afternoon, Awake at night, has a bad sleeping schedule he also feels depressed. Skin is not really dry. No constipation but not much. And it is not worse than before. Last Assessment & Plan: Was 190 lbs when he was working, at [employer]. After stopping work he gained 50 pounds and was at 240 And now he is working out to loose weight and today he was 260. Cannot gauge what he is eating, says average meals Feels tired a lot sleep all the time in the afternoon, Awake at night, has a bad sleeping schedule he also feels depressed. Skin is not really dry. No constipation but not much. And it is not worse than before. documented as of this encounter (statuses as of 08/14/2023) [facility]01-30-2020 History of Past illness Narrative* Problem Noted Date Diagnosed Date Resolved Date Obesity, Class II, BMI 35-39.9 12/04/2019 06/19/2022 Obesity, Class I, BMI 30-34.9 07/18/2018 12/04/2019 Abnormal weight gain 01/21/2016 018 Overview: Was 190 lbs when he was working, at [employer]. After stopping work he gained 50 pounds and was at 240 And now he is working out to loose weight and today he was 260. Cannot gauge what he is eating, says average meals Feels tired a lot sleep all the time in the afternoon, Awake at night, has a bad sleeping schedule he also feels depressed. Skin is not really dry. No constipation but not much. And it is not worse than before. Last Assessment & Plan: Was 190 lbs when he was working, at [employer]. After stopping work he gained 50 pounds and was at 240 And now he is working out to loose weight and today he was 260. Cannot gauge what he is eating, says average meals Feels tired a lot sleep all the time in the afternoon, Awake at night, has a bad sleeping schedule he also feels depressed. Skin is not really dry. No constipation but not much. And it is not worse than before. documented as of this encounter (statuses as of 08/28/2023) [facility]09-13-2018 History of Past illness Narrative* Problem Noted Date Resolved Date Obesity, Class I, BMI 30-34.9 07/18/2018 Abnormal weight gain 01/21/2016 07/18/2018 Overview: Was 190 lbs when he was working, at [employer]. After stopping work he gained 50 pounds and was at 240 And now he is working out to loose weight and today he was 260. Cannot gauge what he is eating, says average meals Feels tired a lot sleep all the time in the afternoon, Awake at night, has a bad sleeping schedule he also feels depressed. Skin is not really dry. No constipation but not much. And it is not worse than before. Last Assessment & Plan: Was 190 lbs when he was working, at [employer]. After stopping work he gained 50 pounds and was at 240 And now he is working out to loose weight and today he was 260. Cannot gauge what he is eating, says average meals Feels tired a lot sleep all the time in the afternoon, Awake at night, has a bad sleeping schedule he also feels depressed. Skin is not really dry. No constipation but not much. And it is not worse than before. documented as of this encounter (statuses as of 01/26/2022) [facility]09-13-2018 History of Past illness Narrative* Problem Noted Date Resolved Date Obesity, Class I, BMI 30-34.9 07/18/2018 Abnormal weight gain 01/21/2016 07/18/2018 Overview: Was 190 lbs when he was working, at [employer]. After stopping work he gained 50 pounds and was at 240 And now he is working out to loose weight and today he was 260. Cannot gauge what he is eating, says average meals Feels tired a lot sleep all the time in the afternoon, Awake at night, has a bad sleeping schedule he also feels depressed. Skin is not really dry. No constipation but not much. And it is not worse than before. Last Assessment & Plan: Was 190 lbs when he was working, at [employer]. After stopping work he gained 50 pounds and was at 240 And now he is working out to loose weight and today he was 260. Cannot gauge what he is eating, says average meals Feels tired a lot sleep all the time in the afternoon, Awake at night, has a bad sleeping schedule he also feels depressed. Skin is not really dry. No constipation but not much. And it is not worse than before. documented as of this encounter (statuses as of 12/11/2021) [facility]09-13-2018 History of Past illness Narrative* Problem Noted Date Resolved Date Obesity, Class I, BMI 30-34.9 07/18/2018 Abnormal weight gain 01/21/2016 07/18/2018 Overview: Was 190 lbs when he was working, at [employer]. After stopping work he gained 50 pounds and was at 240 And now he is working out to loose weight and today he was 260. Cannot gauge what he is eating, says average meals Feels tired a lot sleep all the time in the afternoon, Awake at night, has a bad sleeping schedule he also feels depressed. Skin is not really dry. No constipation but not much. And it is not worse than before. Last Assessment & Plan: Was 190 lbs when he was working, at [employer]. After stopping work he gained 50 pounds and was at 240 And now he is working out to loose weight and today he was 260. Cannot gauge what he is eating, says average meals Feels tired a lot sleep all the time in the afternoon, Awake at night, has a bad sleeping schedule he also feels depressed. Skin is not really dry. No constipation but not much. And it is not worse than before. documented as of this encounter (statuses as of 02/11/2022) [facility]09-13-2018 History of Past illness Narrative* Problem Noted Date Resolved Date Obesity, Class I, BMI 30-34.9 07/18/2018 Abnormal weight gain 01/21/2016 07/18/2018 Overview: Was 190 lbs when he was working, at [employer]. After stopping work he gained 50 pounds and was at 240 And now he is working out to loose weight and today he was 260. Cannot gauge what he is eating, says average meals Feels tired a lot sleep all the time in the afternoon, Awake at night, has a bad sleeping schedule he also feels depressed. Skin is not really dry. No constipation but not much. And it is not worse than before. Last Assessment & Plan: Was 190 lbs when he was working, at [employer]. After stopping work he gained 50 pounds and was at 240 And now he is working out to loose weight and today he was 260. Cannot gauge what he is eating, says average meals Feels tired a lot sleep all the time in the afternoon, Awake at night, has a bad sleeping schedule he also feels depressed. Skin is not really dry. No constipation but not much. And it is not worse than before. documented as of this encounter (statuses as of 02/18/2022) [address]13-2018 History of Past illness Narrative* Problem Noted Date Resolved Date Obesity, Class I, BMI 30-34.9 07/18/2018 Abnormal weight gain 01/21/2016 07/18/2018 Overview: Was 190 lbs when he was working, at [employer]. After stopping work he gained 50 pounds and was at 240 And now he is working out to loose weight and today he was 260. Cannot gauge what he is eating, says average meals Feels tired a lot sleep all the time in the afternoon, Awake at night, has a bad sleeping schedule he also feels depressed. Skin is not really dry. No constipation but not much. And it is not worse than before. Last Assessment & Plan: Was 190 lbs when he was working, at [employer]. After stopping work he gained 50 pounds and was at 240 And now he is working out to loose weight and today he was 260. Cannot gauge what he is eating, says average meals Feels tired a lot sleep all the time in the afternoon, Awake at night, has a bad sleeping schedule he also feels depressed. Skin is not really dry. No constipation but not much. And it is not worse than before. documented as of this encounter (statuses as of 02/20/2022) [facility]09-13-2018 History of Past illness Narrative* Problem Noted Date Resolved Date Obesity, Class I, BMI 30-34.9 07/18/2018 Abnormal weight gain 01/21/2016 07/18/2018 Overview: Was 190 lbs when he was working, at [employer]. After stopping work he gained 50 pounds and was at 240 And now he is working out to loose weight and today he was 260. Cannot gauge what he is eating, says average meals Feels tired a lot sleep all the time in the afternoon, Awake at night, has a bad sleeping schedule he also feels depressed. Skin is not really dry. No constipation but not much. And it is not worse than before. Last Assessment & Plan: Was 190 lbs when he was working, at [employer]. After stopping work he gained 50 pounds and was at 240 And now he is working out to loose weight and today he was 260. Cannot gauge what he is eating, says average meals Feels tired a lot sleep all the time in the afternoon, Awake at night, has a bad sleeping schedule he also feels depressed. Skin is not really dry. No constipation but not much. And it is not worse than before. documented as of this encounter (statuses as of 02/23/2022) [facility]09-13-2018 History of Past illness Narrative* Problem Noted Date Resolved Date Obesity, Class I, BMI 30-34.9 07/18/2018 Abnormal weight gain 01/21/2016 07/18/2018 Overview: Was 190 lbs when he was working, at [employer]. After stopping work he gained 50 pounds and was at 240 And now he is working out to loose weight and today he was 260. Cannot gauge what he is eating, says average meals Feels tired a lot sleep all the time in the afternoon, Awake at night, has a bad sleeping schedule he also feels depressed. Skin is not really dry. No constipation but not much. And it is not worse than before. Last Assessment & Plan: Was 190 lbs when he was working, at [employer]. After stopping work he gained 50 pounds and was at 240 And now he is working out to loose weight and today he was 260. Cannot gauge what he is eating, says average meals Feels tired a lot sleep all the time in the afternoon, Awake at night, has a bad sleeping schedule he also feels depressed. Skin is not really dry. No constipation but not much. And it is not worse than before. documented as of this encounter (statuses as of 02/25/2022) [facility]09-13-2018 History of Past illness Narrative* Problem Noted Date Resolved Date Obesity, Class I, BMI 30-34.9 07/18/2018 Abnormal weight gain 01/21/2016 07/18/2018 Overview: Was 190 lbs when he was working, at [employer]. After stopping work he gained 50 pounds and was at 240 And now he is working out to loose weight and today he was 260. Cannot gauge what he is eating, says average meals Feels tired a lot sleep all the time in the afternoon, Awake at night, has a bad sleeping schedule he also feels depressed. Skin is not really dry. No constipation but not much. And it is not worse than before. Last Assessment & Plan: Was 190 lbs when he was working, at [employer]. After stopping work he gained 50 pounds and was at 240 And now he is working out to loose weight and today he was 260. Cannot gauge what he is eating, says average meals Feels tired a lot sleep all the time in the afternoon, Awake at night, has a bad sleeping schedule he also feels depressed. Skin is not really dry. No constipation but not much. And it is not worse than before. documented as of this encounter (statuses as of 03/04/2022) [facility]09-13-2018 History of Past illness Narrative* Problem Noted Date Resolved Date Obesity, Class I, BMI 30-34.9 07/18/2018 Abnormal weight gain 01/21/2016 07/18/2018 Overview: Was 190 lbs when he was working, at [employer]. After stopping work he gained 50 pounds and was at 240 And now he is working out to loose weight and today he was 260. Cannot gauge what he is eating, says average meals Feels tired a lot sleep all the time in the afternoon, Awake at night, has a bad sleeping schedule he also feels depressed. Skin is not really dry. No constipation but not much. And it is not worse than before. Last Assessment & Plan: Was 190 lbs when he was working, at [employer]. After stopping work he gained 50 pounds and was at 240 And now he is working out to loose weight and today he was 260. Cannot gauge what he is eating, says average meals Feels tired a lot sleep all the time in the afternoon, Awake at night, has a bad sleeping schedule he also feels depressed. Skin is not really dry. No constipation but not much. And it is not worse than before. documented as of this encounter (statuses as of 03/07/2022) [facility]09-13-2018 History of Past illness Narrative* Problem Noted Date Resolved Date Obesity, Class I, BMI 30-34.9 07/18/2018 Abnormal weight gain 01/21/2016 07/18/2018 Overview: Was 190 lbs when he was working, at [employer]. After stopping work he gained 50 pounds and was at 240 And now he is working out to loose weight and today he was 260. Cannot gauge what he is eating, says average meals Feels tired a lot sleep all the time in the afternoon, Awake at night, has a bad sleeping schedule he also feels depressed. Skin is not really dry. No constipation but not much. And it is not worse than before. Last Assessment & Plan: Was 190 lbs when he was working, at [employer]. After stopping work he gained 50 pounds and was at 240 And now he is working out to loose weight and today he was 260. Cannot gauge what he is eating, says average meals Feels tired a lot sleep all the time in the afternoon, Awake at night, has a bad sleeping schedule he also feels depressed. Skin is not really dry. No constipation but not much. And it is not worse than before. documented as of this encounter (statuses as of 03/07/2022) [facility]09-13-2018 History of Past illness Narrative* Problem Noted Date Resolved Date Obesity, Class I, BMI 30-34.9 07/18/2018 Abnormal weight gain 01/21/2016 07/18/2018 Overview: Was 190 lbs when he was working, at [employer]. After stopping work he gained 50 pounds and was at 240 And now he is working out to loose weight and today he was 260. Cannot gauge what he is eating, says average meals Feels tired a lot sleep all the time in the afternoon, Awake at night, has a bad sleeping schedule he also feels depressed. Skin is not really dry. No constipation but not much. And it is not worse than before. Last Assessment & Plan: Was 190 lbs when he was working, at [employer]. After stopping work he gained 50 pounds and was at 240 And now he is working out to loose weight and today he was 260. Cannot gauge what he is eating, says average meals Feels tired a lot sleep all the time in the afternoon, Awake at night, has a bad sleeping schedule he also feels depressed. Skin is not really dry. No constipation but not much. And it is not worse than before. documented as of this encounter (statuses as of 03/11/2022) [facility]09-13-2018 History of Past illness Narrative* Problem Noted Date Resolved Date Obesity, Class I, BMI 30-34.9 07/18/2018 Abnormal weight gain 01/21/2016 07/18/2018 Overview: Was 190 lbs when he was working, at [employer]. After stopping work he gained 50 pounds and was at 240 And now he is working out to loose weight and today he was 260. Cannot gauge what he is eating, says average meals Feels tired a lot sleep all the time in the afternoon, Awake at night, has a bad sleeping schedule he also feels depressed. Skin is not really dry. No constipation but not much. And it is not worse than before. Last Assessment & Plan: Was 190 lbs when he was working, at [employer]. After stopping work he gained 50 pounds and was at 240 And now he is working out to loose weight and today he was 260. Cannot gauge what he is eating, says average meals Feels tired a lot sleep all the time in the afternoon, Awake at night, has a bad sleeping schedule he also feels depressed. Skin is not really dry. No constipation but not much. And it is not worse than before. documented as of this encounter (statuses as of 03/25/2022) [facility]09-13-2018 History of Past illness Narrative* Problem Noted Date Resolved Date Obesity, Class I, BMI 30-34.9 07/18/2018 Abnormal weight gain 01/21/2016 07/18/2018 Overview: Was 190 lbs when he was working, at [employer]. After stopping work he gained 50 pounds and was at 240 And now he is working out to loose weight and today he was 260. Cannot gauge what he is eating, says average meals Feels tired a lot sleep all the time in the afternoon, Awake at night, has a bad sleeping schedule he also feels depressed. Skin is not really dry. No constipation but not much. And it is not worse than before. Last Assessment & Plan: Was 190 lbs when he was working, at [employer]. After stopping work he gained 50 pounds and was at 240 And now he is working out to loose weight and today he was 260. Cannot gauge what he is eating, says average meals Feels tired a lot sleep all the time in the afternoon, Awake at night, has a bad sleeping schedule he also feels depressed. Skin is not really dry. No constipation but not much. And it is not worse than before. documented as of this encounter (statuses as of 04/01/2022) [facility]09-13-2018 History of Past illness Narrative* Problem Noted Date Resolved Date Obesity, Class I, BMI 30-34.9 07/18/2018 Abnormal weight gain 01/21/2016 07/18/2018 Overview: Was 190 lbs when he was working, at [employer]. After stopping work he gained 50 pounds and was at 240 And now he is working out to loose weight and today he was 260. Cannot gauge what he is eating, says average meals Feels tired a lot sleep all the time in the afternoon, Awake at night, has a bad sleeping schedule he also feels depressed. Skin is not really dry. No constipation but not much. And it is not worse than before. Last Assessment & Plan: Was 190 lbs when he was working, at [employer]. After stopping work he gained 50 pounds and was at 240 And now he is working out to loose weight and today he was 260. Cannot gauge what he is eating, says average meals Feels tired a lot sleep all the time in the afternoon, Awake at night, has a bad sleeping schedule he also feels depressed. Skin is not really dry. No constipation but not much. And it is not worse than before. documented as of this encounter (statuses as of 04/08/2022) [facility]09-13-2018 History of Past illness Narrative* Problem Noted Date Resolved Date Obesity, Class I, BMI 30-34.9 07/18/2018 Abnormal weight gain 01/21/2016 07/18/2018 Overview: Was 190 lbs when he was working, at [employer]. After stopping work he gained 50 pounds and was at 240 And now he is working out to loose weight and today he was 260. Cannot gauge what he is eating, says average meals Feels tired a lot sleep all the time in the afternoon, Awake at night, has a bad sleeping schedule he also feels depressed. Skin is not really dry. No constipation but not much. And it is not worse than before. Last Assessment & Plan: Was 190 lbs when he was working, at [employer]. After stopping work he gained 50 pounds and was at 240 And now he is working out to loose weight and today he was 260. Cannot gauge what he is eating, says average meals Feels tired a lot sleep all the time in the afternoon, Awake at night, has a bad sleeping schedule he also feels depressed. Skin is not really dry. No constipation but not much. And it is not worse than before. documented as of this encounter (statuses as of 04/15/2022) [facility]09-13-2018 History of Past illness Narrative* Problem Noted Date Resolved Date Obesity, Class I, BMI 30-34.9 07/18/2018 Abnormal weight gain 01/21/2016 07/18/2018 Overview: Was 190 lbs when he was working, at [employer]. After stopping work he gained 50 pounds and was at 240 And now he is working out to loose weight and today he was 260. Cannot gauge what he is eating, says average meals Feels tired a lot sleep all the time in the afternoon, Awake at night, has a bad sleeping schedule he also feels depressed. Skin is not really dry. No constipation but not much. And it is not worse than before. Last Assessment & Plan: Was 190 lbs when he was working, at [employer]. After stopping work he gained 50 pounds and was at 240 And now he is working out to loose weight and today he was 260. Cannot gauge what he is eating, says average meals Feels tired a lot sleep all the time in the afternoon, Awake at night, has a bad sleeping schedule he also feels depressed. Skin is not really dry. No constipation but not much. And it is not worse than before. documented as of this encounter (statuses as of 04/20/2022) [facility]09-13-2018 History of Past illness Narrative* Problem Noted Date Resolved Date Obesity, Class I, BMI 30-34.9 07/18/2018 Abnormal weight gain 01/21/2016 07/18/2018 Overview: Was 190 lbs when he was working, at [employer]. After stopping work he gained 50 pounds and was at 240 And now he is working out to loose weight and today he was 260. Cannot gauge what he is eating, says average meals Feels tired a lot sleep all the time in the afternoon, Awake at night, has a bad sleeping schedule he also feels depressed. Skin is not really dry. No constipation but not much. And it is not worse than before. Last Assessment & Plan: Was 190 lbs when he was working, at [employer]. After stopping work he gained 50 pounds and was at 240 And now he is working out to loose weight and today he was 260. Cannot gauge what he is eating, says average meals Feels tired a lot sleep all the time in the afternoon, Awake at night, has a bad sleeping schedule he also feels depressed. Skin is not really dry. No constipation but not much. And it is not worse than before. documented as of this encounter (statuses as of 04/22/2022) [facility]09-13-2018 History of Past illness Narrative* Problem Noted Date Resolved Date Obesity, Class I, BMI 30-34.9 07/18/2018 Abnormal weight gain 01/21/2016 07/18/2018 Overview: Was 190 lbs when he was working, at [employer]. After stopping work he gained 50 pounds and was at 240 And now he is working out to loose weight and today he was 260. Cannot gauge what he is eating, says average meals Feels tired a lot sleep all the time in the afternoon, Awake at night, has a bad sleeping schedule he also feels depressed. Skin is not really dry. No constipation but not much. And it is not worse than before. Last Assessment & Plan: Was 190 lbs when he was working, at [employer]. After stopping work he gained 50 pounds and was at 240 And now he is working out to loose weight and today he was 260. Cannot gauge what he is eating, says average meals Feels tired a lot sleep all the time in the afternoon, Awake at night, has a bad sleeping schedule he also feels depressed. Skin is not really dry. No constipation but not much. And it is not worse than before. documented as of this encounter (statuses as of 04/29/2022) [facility]09-13-2018 History of Past illness Narrative* Problem Noted Date Resolved Date Obesity, Class I, BMI 30-34.9 07/18/2018 Abnormal weight gain 01/21/2016 07/18/2018 Overview: Was 190 lbs when he was working, at [employer]. After stopping work he gained 50 pounds and was at 240 And now he is working out to loose weight and today he was 260. Cannot gauge what he is eating, says average meals Feels tired a lot sleep all the time in the afternoon, Awake at night, has a bad sleeping schedule he also feels depressed. Skin is not really dry. No constipation but not much. And it is not worse than before. Last Assessment & Plan: Was 190 lbs when he was working, at [employer]. After stopping work he gained 50 pounds and was at 240 And now he is working out to loose weight and today he was 260. Cannot gauge what he is eating, says average meals Feels tired a lot sleep all the time in the afternoon, Awake at night, has a bad sleeping schedule he also feels depressed. Skin is not really dry. No constipation but not much. And it is not worse than before. documented as of this encounter (statuses as of 04/30/2022) [facility]09-13-2018 History of Past illness Narrative* Problem Noted Date Resolved Date Obesity, Class I, BMI 30-34.9 07/18/2018 Abnormal weight gain 01/21/2016 07/18/2018 Overview: Was 190 lbs when he was working, at [employer]. After stopping work he gained 50 pounds and was at 240 And now he is working out to loose weight and today he was 260. Cannot gauge what he is eating, says average meals Feels tired a lot sleep all the time in the afternoon, Awake at night, has a bad sleeping schedule he also feels depressed. Skin is not really dry. No constipation but not much. And it is not worse than before. Last Assessment & Plan: Was 190 lbs when he was working, at [employer]. After stopping work he gained 50 pounds and was at 240 And now he is working out to loose weight and today he was 260. Cannot gauge what he is eating, says average meals Feels tired a lot sleep all the time in the afternoon, Awake at night, has a bad sleeping schedule he also feels depressed. Skin is not really dry. No constipation but not much. And it is not worse than before. documented as of this encounter (statuses as of 05/13/2022) [facility]09-13-2018 History of Past illness Narrative* Problem Noted Date Resolved Date Obesity, Class I, BMI 30-34.9 07/18/2018 Abnormal weight gain 01/21/2016 07/18/2018 Overview: Was 190 lbs when he was working, at [employer]. After stopping work he gained 50 pounds and was at 240 And now he is working out to loose weight and today he was 260. Cannot gauge what he is eating, says average meals Feels tired a lot sleep all the time in the afternoon, Awake at night, has a bad sleeping schedule he also feels depressed. Skin is not really dry. No constipation but not much. And it is not worse than before. Last Assessment & Plan: Was 190 lbs when he was working, at [employer]. After stopping work he gained 50 pounds and was at 240 And now he is working out to loose weight and today he was 260. Cannot gauge what he is eating, says average meals Feels tired a lot sleep all the time in the afternoon, Awake at night, has a bad sleeping schedule he also feels depressed. Skin is not really dry. No constipation but not much. And it is not worse than before. documented as of this encounter (statuses as of 05/31/2022) [facility]09-13-2018 History of Past illness Narrative* Problem Noted Date Resolved Date Obesity, Class I, BMI 30-34.9 07/18/2018 Abnormal weight gain 01/21/2016 07/18/2018 Overview: Was 190 lbs when he was working, at [employer]. After stopping work he gained 50 pounds and was at 240 And now he is working out to loose weight and today he was 260. Cannot gauge what he is eating, says average meals Feels tired a lot sleep all the time in the afternoon, Awake at night, has a bad sleeping schedule he also feels depressed. Skin is not really dry. No constipation but not much. And it is not worse than before. Last Assessment & Plan: Was 190 lbs when he was working, at [employer]. After stopping work he gained 50 pounds and was at 240 And now he is working out to loose weight and today he was 260. Cannot gauge what he is eating, says average meals Feels tired a lot sleep all the time in the afternoon, Awake at night, has a bad sleeping schedule he also feels depressed. Skin is not really dry. No constipation but not much. And it is not worse than before. documented as of this encounter (statuses as of 05/31/2022) [facility]09-13-2018 History of Past illness Narrative* Problem Noted Date Resolved Date Obesity, Class I, BMI 30-34.9 07/18/2018 Abnormal weight gain 01/21/2016 07/18/2018 Overview: Was 190 lbs when he was working, at [employer]. After stopping work he gained 50 pounds and was at 240 And now he is working out to loose weight and today he was 260. Cannot gauge what he is eating, says average meals Feels tired a lot sleep all the time in the afternoon, Awake at night, has a bad sleeping schedule he also feels depressed. Skin is not really dry. No constipation but not much. And it is not worse than before. Last Assessment & Plan: Was 190 lbs when he was working, at [employer]. After stopping work he gained 50 pounds and was at 240 And now he is working out to loose weight and today he was 260. Cannot gauge what he is eating, says average meals Feels tired a lot sleep all the time in the afternoon, Awake at night, has a bad sleeping schedule he also feels depressed. Skin is not really dry. No constipation but not much. And it is not worse than before. documented as of this encounter (statuses as of 06/04/2022) [facility]09-13-2018 History of Past illness Narrative* Problem Noted Date Resolved Date Obesity, Class I, BMI 30-34.9 07/18/2018 Abnormal weight gain 01/21/2016 07/18/2018 Overview: Was 190 lbs when he was working, at [employer]. After stopping work he gained 50 pounds and was at 240 And now he is working out to loose weight and today he was 260. Cannot gauge what he is eating, says average meals Feels tired a lot sleep all the time in the afternoon, Awake at night, has a bad sleeping schedule he also feels depressed. Skin is not really dry. No constipation but not much. And it is not worse than before. Last Assessment & Plan: Was 190 lbs when he was working, at [employer]. After stopping work he gained 50 pounds and was at 240 And now he is working out to loose weight and today he was 260. Cannot gauge what he is eating, says average meals Feels tired a lot sleep all the time in the afternoon, Awake at night, has a bad sleeping schedule he also feels depressed. Skin is not really dry. No constipation but not much. And it is not worse than before. documented as of this encounter (statuses as of 06/07/2022) [facility]09-13-2018 History of Past illness Narrative* Problem Noted Date Resolved Date Obesity, Class I, BMI 30-34.9 07/18/2018 Abnormal weight gain 01/21/2016 07/18/2018 Overview: Was 190 lbs when he was working, at [employer]. After stopping work he gained 50 pounds and was at 240 And now he is working out to loose weight and today he was 260. Cannot gauge what he is eating, says average meals Feels tired a lot sleep all the time in the afternoon, Awake at night, has a bad sleeping schedule he also feels depressed. Skin is not really dry. No constipation but not much. And it is not worse than before. Last Assessment & Plan: Was 190 lbs when he was working, at [employer]. After stopping work he gained 50 pounds and was at 240 And now he is working out to loose weight and today he was 260. Cannot gauge what he is eating, says average meals Feels tired a lot sleep all the time in the afternoon, Awake at night, has a bad sleeping schedule he also feels depressed. Skin is not really dry. No constipation but not much. And it is not worse than before. documented as of this encounter (statuses as of 06/08/2022) [facility] Diagnosis Major depressive disorder, recurrent episode, moderate (HCC)- Primary Major depressive disorder, recurrent episode, moderate KATIE (generalized anxiety disorder) Generalized anxiety disorder Borderline personality disorder (HCC) Borderline personality disorder documented [facility] this encounter [facility] Diagnosis Generalized anxiety disorder [facility] Diagnosis KATIE (generalized anxiety disorder)- Primary Generalized anxiety disorder Major depressive disorder, recurrent episode, moderate (HCC) Major depressive disorder, recurrent episode, moderate Borderline personality disorder (HCC) Borderline personality disorder documented in this encounter [facility] note* Diagnosis Viral upper respiratory tract infection- Primary Acute upper respiratory infections of unspecified site Generalized anxiety disorder documented in this encounter [facility] note* Diagnosis Generalized anxiety disorder- Primary documented in this encounter [facility] note* Diagnosis Generalized anxiety disorder- Primary Obesity, Class I, BMI 30-34.9 Obesity, unspecified documented in this encounter [facility] note* Diagnosis Generalized anxiety disorder- Primary Major depressive disorder, recurrent episode, moderate (HCC) Major depressive disorder, recurrent episode, moderate Borderline personality disorder (HCC) Borderline personality disorder documented in this encounter [facility] note* Diagnosis Generalized anxiety disorder- Primary Major depressive disorder, recurrent episode, moderate (HCC) Major depressive disorder, recurrent episode, moderate Borderline personality disorder (HCC) Borderline personality disorder documented in this encounter [facility] note* Diagnosis APPOINTMENT CANCELLED- Primary documented in this encounter [facility] note* Diagnosis Borderline personality disorder (HCC)- Primary Borderline personality disorder Generalized anxiety disorder Recurrent major depressive disorder, in partial remission (HCC) documented in this encounter [facility] note* Diagnosis Generalized anxiety disorder- Primary Borderline personality disorder (HCC) Borderline personality disorder Recurrent major depressive disorder, in partial remission (HCC) documented in this encounter [facility] note* Diagnosis Tobacco use disorder- Primary Vitamin D deficiency Unspecified vitamin D deficiency documented in this encounter [facility] note* Diagnosis Generalized anxiety disorder documented in this encounter [facility] note* Diagnosis Generalized anxiety disorder- Primary Borderline personality disorder (HCC) Borderline personality disorder Major depressive disorder, recurrent episode, moderate (HCC) Major depressive disorder, recurrent episode, moderate documented in this encounter [facility] note* Diagnosis Vitamin D deficiency Unspecified vitamin D deficiency documented in this encounter [facility] note* Diagnosis Generalized anxiety disorder documented in this encounter [facility] note* Diagnosis NO SHOW- Primary documented in this encounter [facility] note* Diagnosis Obesity, Class I, BMI 30-34.9- Primary Obesity, unspecified Vitamin D deficiency Unspecified vitamin D deficiency documented in this encounter [facility] note* Diagnosis NO SHOW- Primary documented in this encounter [facility] note* Diagnosis Generalized anxiety disorder [facility] Diagnosis Vitamin D deficiency Unspecified vitamin D deficiency [facility] Diagnosis APPOINTMENT CANCELLED- Primary [facility] Diagnosis Generalized anxiety disorder Recurrent major depression in partial remission (HCC) Major depressive disorder, recurrent episode, in partial or unspecified remission documented in this encounter [facility] Summary Purpose Family History No Family History Records FoundNo Family History Records FoundNo Family History Records Found Advance Directives Documents on File Type Date Recorded Patient Hand Presser Expl anation Advance Directive(s) 05/10/2017 6:38 AM Advance Directive(s) 04/23/2017 7:58 AM Advance Directive(s) 04/19/2017 4:10 PM Advance Directive(s) 04/11/2017 8:01 AM Documents on File Type Date Recorded Patient Hand Presser Expl anation Advance Directive(s) 05/10/2017 6:38 AM Advance Directive(s) 04/23/2017 7:58 AM Advance Directive(s) 04/19/2017 4:10 PM Advance Directive(s) 04/11/2017 8:01 AM Hospital Course Note [facility] [address], [place] [address]JVOADONIS LIZARRAGA [facility] [id number] 1984ADMIT 07/05/2018DISCH 07/10/2018DISCHARGE SUMMARYREASON FOR ADMISSIONDonis Ferrer is a 33-year-old, young, single, psychiatrically-disabledCaucasian male who was admitted with history of constant fear of , chestpain, palpitation and feeling that he would be better off .Prior to this admission, he was receiving outpatient treatment at [facility] in [place], [place], where he had reduced Lexapro to 5 mg aday due to sexual side effects.LABORATORY DATATSH on 07/06/2018 was within acceptable range.HOSPITAL COURSEDuring his brief hospital stay, he made slow and steady improvement withabatement of panic attacks, significant reduction in generalized anxiety,alleviation of depressed mood, brighter affect, and improvement in personalhygiene, dressing, grooming, sleep, and appetite. During individualcounseling session he was counseled abo (more content not included)... Health Concerns Infection Onset Date Last Indicated Resolved Time COVID-19 Confirmed 2022 2022 8:51 PM EDT Additional Source Comments (unrecognized sect ion and content) No Status Records FoundNo Status Records FoundNo Status Records Found INFORMATION SOURCE (unrecogn ized section and content) DATE CREATED AUTHOR AUTHOR'S ORGANIZ ATION 04/11/2022 [facility] DATE CREATED AUTHOR AUTHOR'S ORGANIZ ATION 08/28/2023 [facility] Source Comments (unrecognize d section and content) In the event this informatio n is protected by the Federal Confidentiality of Alcohol and Drug Abuse Patient Records regulations: The Federal rules restrict any use of the information to criminally investigate or prosecute any alcohol or drug abuse patient.[facility] the event this information is protected by the Federal Confidentiality of Alcohol and Drug Abuse Patient Records regulations: The Federal rules restrict any use of the information to criminally investigate or prosecute any alcohol or drug abuse patient.[facility] the event this information is protected by the Federal Confidentiality of Alcohol and Drug Abuse Patient Records regulations: The Federal rules restrict any use of the information to criminally investigate or prosecute any alcohol or drug abuse patient.[facility] the event this information is protected by the Federal Confidentiality of Alcohol and Drug Abuse Patient Records regulations: The Federal rules restrict any use of the information to criminally investigate or prosecute any alcohol or drug abuse patient.[facility] the event this information is protected by the Federal Confidentiality of Alcohol and Drug Abuse Patient Records regulations: The Federal rules restrict any use of the information to criminally investigate or prosecute any alcohol or drug abuse patient.[facility] the event this information is protected by the Federal Confidentiality of Alcohol and Drug Abuse Patient Records regulations: The Federal rules restrict any use of the information to criminally investigate or prosecute any alcohol or drug abuse patient.[facility] the event this information is protected by the Federal Confidentiality of Alcohol and Drug Abuse Patient Records regulations: The Federal rules restrict any use of the information to criminally investigate or prosecute any alcohol or drug abuse patient.[facility] the event this information is protected by the Federal Confidentiality of Alcohol and Drug Abuse Patient Records regulations: The Federal rules restrict any use of the information to criminally investigate or prosecute any alcohol or drug abuse patient.[facility] the event this information is protected by the Federal Confidentiality of Alcohol and Drug Abuse Patient Records regulations: The Federal rules restrict any use of the information to criminally investigate or prosecute any alcohol or drug abuse patient.[facility] the event this information is protected by the Federal Confidentiality of Alcohol and Drug Abuse Patient Records regulations: The Federal rules restrict any use of the information to criminally investigate or prosecute any alcohol or drug abuse patient.[facility] the event this information is protected by the Federal Confidentiality of Alcohol and Drug Abuse Patient Records regulations: The Federal rules restrict any use of the information to criminally investigate or prosecute any alcohol or drug abuse patient.[facility]In the event this information is protected by the Federal Confidentiality of Alcohol and Drug Abuse Patient Records regulations: The Federal rules restrict any use of the information to criminally investigate or prosecute any alcohol or drug abuse patient.[facility] the event this information is protected by the Federal Confidentiality of Alcohol and Drug Abuse Patient Records regulations: The Federal rules restrict any use of the information to criminally investigate or prosecute any alcohol or drug abuse patient.[facility] the event this information is protected by the Federal Confidentiality of Alcohol and Drug Abuse Patient Records regulations: The Federal rules restrict any use of the information to criminally investigate or prosecute any alcohol or drug abuse patient.[facility] the event this information is protected by the Federal Confidentiality of Alcohol and Drug Abuse Patient Records regulations: The Federal rules restrict any use of the information to criminally investigate or prosecute any alcohol or drug abuse patient.[facility] the event this information is protected by the Federal Confidentiality of Alcohol and Drug Abuse Patient Records regulations: The Federal rules restrict any use of the information to criminally investigate or prosecute any alcohol or drug abuse patient.[facility] the event this information is protected by the Federal Confidentiality of Alcohol and Drug Abuse Patient Records regulations: The Federal rules restrict any use of the information to criminally investigate or prosecute any alcohol or drug abuse patient.[facility] the event this information is protected by the Federal Confidentiality of Alcohol and Drug Abuse Patient Records regulations: The Federal rules restrict any use of the information to criminally investigate or prosecute any alcohol or drug abuse patient.[facility]In the event this information is protected by the Federal Confidentiality of Alcohol and Drug Abuse Patient Records regulations: The Federal rules restrict any use of the information to criminally investigate or prosecute any alcohol or drug abuse patient.[facility] HospitalIn the event this information is protected by the Federal Confidentiality of Alcohol and Drug Abuse Patient Records regulations: The Federal rules restrict any use of the information to criminally investigate or prosecute any alcohol or drug abuse patient.[facility]In the event this information is protected by the Federal Confidentiality of Alcohol and Drug Abuse Patient Records regulations: The Federal rules restrict any use of the information to criminally investigate or prosecute any alcohol or drug abuse patient.[facility]In the event this information is protected by the Federal Confidentiality of Alcohol and Drug Abuse Patient Records regulations: The Federal rules restrict any use of the information to criminally investigate or prosecute any alcohol or drug abuse patient.[facility]In the event this information is protected by the Federal Confidentiality of Alcohol and Drug Abuse Patient Records regulations: The Federal rules restrict any use of the information to criminally investigate or prosecute any alcohol or drug abuse patient.[facility]In the event this information is protected by the Federal Confidentiality of Alcohol and Drug Abuse Patient Records regulations: The Federal rules restrict any use of the information to criminally investigate or prosecute any alcohol or drug abuse patient.[facility]In the event this information is protected by the Federal Confidentiality of Alcohol and Drug Abuse Patient Records regulations: The Federal rules restrict any use of the information to criminally investigate or prosecute any alcohol or drug abuse patient.[facility]In the event this information is protected by the Federal Confidentiality of Alcohol and Drug Abuse Patient Records regulations: The Federal rules restrict any use of the information to criminally investigate or prosecute any alcohol or drug abuse patient.[facility]In the event this information is protected by the Federal Confidentiality of Alcohol and Drug Abuse Patient Records regulations: The Federal rules restrict any use of the information to criminally investigate or prosecute any alcohol or drug abuse patient.[facility]In the event this information is protected by the Federal Confidentiality of Alcohol and Drug Abuse Patient Records regulations: The Federal rules restrict any use of the information to criminally investigate or prosecute any alcohol or drug abuse patient.[facility] HospitalIn the event this information is protected by the Federal Confidentiality of Alcohol and Drug Abuse Patient Records regulations: The Federal rules restrict any use of the information to criminally investigate or prosecute any alcohol or drug abuse patient.[facility]In the event this information is protected by the Federal Confidentiality of Alcohol and Drug Abuse Patient Records regulations: The Federal rules restrict any use of the information to criminally investigate or prosecute any alcohol or drug abuse patient.[facility]In the event this information is protected by the Federal Confidentiality of Alcohol and Drug Abuse Patient Records regulations: The Federal rules restrict any use of the information to criminally investigate or prosecute any alcohol or drug abuse patient.[facility]In the event this information is protected by the Federal Confidentiality of Alcohol and Drug Abuse Patient Records regulations: The Federal rules restrict any use of the information to criminally investigate or prosecute any alcohol or drug abuse patient.[facility]In the event this information is protected by the Federal Confidentiality of Alcohol and Drug Abuse Patient Records regulations: The Federal rules restrict any use of the information to criminally investigate or prosecute any alcohol or drug abuse patient.[facility] HospitalIn the event this information is protected by the Federal Confidentiality of Alcohol and Drug Abuse Patient Records regulations: The Federal rules restrict any use of the information to criminally investigate or prosecute any alcohol or drug abuse patient.[facility] HospitalIn the event this information is protected by the Federal Confidentiality of Alcohol and Drug Abuse Patient Records regulations: The Federal rules restrict any use of the information to criminally investigate or prosecute any alcohol or drug abuse patient.[facility]In the event this information is protected by the Federal Confidentiality of Alcohol and Drug Abuse Patient Records regulations: The Federal rules restrict any use of the information to criminally investigate or prosecute any alcohol or drug abuse patient.[facility]In the event this information is protected by the Federal Confidentiality of Alcohol and Drug Abuse Patient Records regulations: The Federal rules restrict any use of the information to criminally investigate or prosecute any alcohol or drug abuse patient.[facility] [facility]In the event this information is protected by the Federal Confidentiality of Alcohol and Drug Abuse Patient Records regulations: The Federal rules restrict any use of the information to criminally investigate or prosecute any alcohol or drug abuse patient.[facility]In the event this information is protected by the Federal Confidentiality of Alcohol and Drug Abuse Patient Records regulations: The Federal rules restrict any use of the information to criminally investigate or prosecute any alcohol or drug abuse patient.[facility]In the event this information is protected by the Federal Confidentiality of Alcohol and Drug Abuse Patient Records regulations: The Federal rules restrict any use of the information to criminally investigate or prosecute any alcohol or drug abuse patient.[facility]In the event this information is protected by the Federal Confidentiality of Alcohol and Drug Abuse Patient Records regulations: The Federal rules restrict any use of the information to criminally investigate or prosecute any alcohol or drug abuse patient.[facility]In the event this information is protected by the Federal Confidentiality of Alcohol and Drug Abuse Patient Records regulations: The Federal rules restrict any use of the information to criminally investigate or prosecute any alcohol or drug abuse patient.[facility]In the event this information is protected by the Federal Confidentiality of Alcohol and Drug Abuse Patient Records regulations: The Federal rules restrict any use of the information to criminally investigate or prosecute any alcohol or drug abuse patient.[facility]In the event this information is protected by the Federal Confidentiality of Alcohol and Drug Abuse Patient Records regulations: The Federal rules restrict any use of the information to criminally investigate or prosecute any alcohol or drug abuse patient.[facility]In the event this information is protected by the Federal Confidentiality of Alcohol and Drug Abuse Patient Records regulations: The Federal rules restrict any use of the information to criminally investigate or prosecute any alcohol or drug abuse patient.[facility]In the event this information is protected by the Federal Confidentiality of Alcohol and Drug Abuse Patient Records regulations: The Federal rules restrict any use of the information to criminally investigate or prosecute any alcohol or drug abuse patient.[facility]In the event this information is protected by the Federal Confidentiality of Alcohol and Drug Abuse Patient Records regulations: The Federal rules restrict any use of the information to criminally investigate or prosecute any alcohol or drug abuse patient.[facility] HospitalIn the event this information is protected by the Federal Confidentiality of Alcohol and Drug Abuse Patient Records regulations: The Federal rules restrict any use of the information to criminally investigate or prosecute any alcohol or drug abuse patient.[facility]In the event this information is protected by the Federal Confidentiality of Alcohol and Drug Abuse Patient Records regulations: The Federal rules restrict any use of the information to criminally investigate or prosecute any alcohol or drug abuse patient.[facility]In the event this information is protected by the Federal Confidentiality of Alcohol and Drug Abuse Patient Records regulations: The Federal rules restrict any use of the information to criminally investigate or prosecute any alcohol or drug abuse patient.[facility] HospitalIn the event this information is protected by the Federal Confidentiality of Alcohol and Drug Abuse Patient Records regulations: The Federal rules restrict any use of the information to criminally investigate or prosecute any alcohol or drug abuse patient.[facility] HospitalIn the event this information is protected by the Federal Confidentiality of Alcohol and Drug Abuse Patient Records regulations: The Federal rules restrict any use of the information to criminally investigate or prosecute any alcohol or drug abuse patient.[facility] Reason for Visit (unrecogniz ed section and content) Specialty Diagnoses / Procedures Referred By Contac t Referred To Contact ADULT PSYCHIATRY Diagnoses New DBT-IOP Procedures VIDEO PSYC/PSYL GRP (ZOOM) Manuela Issa, DAVIDE.OFFSET SECOND PRESS OPERATOR [address] [place] [address] [facility] Adult [facility] [address] [place] [address] Referral ID Status Reason Start Date Expiration Date Visits Re quested Visits Authorized [id number] Closed 10/13/2021 11/04/2021 99 99 Specialty Diagnoses / Procedures Referred By Contac t Referred To Contact ADULT PSYCHIATRY Diagnoses New DBT-Skills Procedures VIDEO PSYC/PSYL GRP (ZOOM) Manuela Issa, STEM ASSEMBLER.[facility] [address] [place] [address] Psyc Adult [facility] [address] [place] [address] Referral ID Status Reason Start Date Expiration Date V isits Requested Visits Authorized [id number] Authorized 12/26/2021 11/04/2022 99 99 Reason Comments Medication Problem Reason Comments Depression Anxiety Follow Up Specialty Diagnoses / Procedures Referred By Contac t Referred To Contact Psychiatry / ADULT PSYCHIATRY Diagnoses 4 week follow up Procedures VIDEO PSYC/PSYL EST Magaly Alvarez, STEM ASSEMBLER.OFFSET SECOND PRESS OPERATOR [address] [place] [address] Magaly Alvarez, STEM ASSEMBLER.OFFSET SECOND PRESS OPERATOR [address] [place] [address] Referral ID Status Reason Start Date Expiration Date V isits Requested Visits Authorized [id number] Pending Review 02/10/2022 05/11/2022 1 1 Reason Onset Date Comments Refill Request 03/06/2022 Reason Comments Follow Up Anxiety Depression Reason Comments Recheck follow up medication Reason Comments Medication Request Reason Comments Sore Throat Reason Comments ER F/U Reason Comments Follow Up Reason Onset Date Comments Refill Request 06/29/2022 Reason Comments Information Reason Comments Medication Update Reason Comments Appointment Cancelled Reason Comments F/U 6 months Reason Onset Date Comments Refill Request 02/13/2023 Reason Comments No Show Reason Onset Date Comments Refill Request 05/09/2023 Reason Comments Patient Question Returning Patient's Call Reason Onset Date Comments Refill Request 07/31/2023 Reason Onset Date Comments Refill Request 08/27/2023 Care Teams (unrecognized sec tion and content) Food Service Assistant Relationship Specialty Start Date End Date Jm Luo MD [address] [facility] [place] [address] PCP - General Internal Medicine 07/18/18 Food Service Assistant Relationship Specialty Start Date End Date Jm Luo MD [address] [facility] [place] [address] PCP - General Internal Medicine 07/18/18 Food Service Assistant Relationship Specialty Start Date End Date Jm Luo MD [address] [facility] [place] [address] PCP - General Internal Medicine 07/18/18 Food Service Assistant Relationship Specialty Start Date End Date Jm Luo MD [address] [facility] [place] [address] PCP - General Internal Medicine 07/18/18 Food Service Assistant Relationship Specialty Start Date End Date Jm Luo MD [address] [facility] [place] [address] PCP - General Internal Medicine 07/18/18 Food Service Assistant Relationship Specialty Start Date End Date Jm Luo MD [address] [facility] [place] [address] PCP - General Internal Medicine 07/18/18 Food Service Assistant Relationship Specialty Start Date End Date Jm Luo MD [address] [facility] [place] [address] PCP - General Internal Medicine 07/18/18 Food Service Assistant Relationship Specialty Start Date End Date Jm Luo MD [address] [facility] [place] [address] PCP - General Internal Medicine 07/18/18 Food Service Assistant Relationship Specialty Start Date End Date Jm Luo MD [address] [facility] [place] [address] PCP - General Internal Medicine 07/18/18 Food Service Assistant Relationship Specialty Start Date End Date Jm Luo MD [address] [facility] [place] [address] PCP - General Internal Medicine 07/18/18 Food Service Assistant Relationship Specialty Start Date End Date Jm Luo MD [address] [facility] [place] [address] PCP - General Internal Medicine 07/18/18 Food Service Assistant Relationship Specialty Start Date End Date Jm Luo MD [address] [facility] [place] [address] PCP - General Internal Medicine 07/18/18 Food Service Assistant Relationship Specialty Start Date End Date Jm Luo MD [address] [facility] [place] [place] [address] PCP - General Internal Medicine 07/18/18 Food Service Assistant Relationship Specialty Start Date End Date Jm Luo MD [address] [facility] [place] [address] PCP - General Internal Medicine 07/18/18 Food Service Assistant Relationship Specialty Start Date End Date Jm Luo MD [address] [facility] [place] [address] PCP - General Internal Medicine 07/18/18 Food Service Assistant Relationship Specialty Start Date End Date Jm Luo MD [address] [facility] [place] [address] PCP - General Internal Medicine 07/18/18 Food Service Assistant Relationship Specialty Start Date End Date Jm Luo MD [address] [facility] [place] [address] PCP - General Internal Medicine 07/18/18 Food Service Assistant Relationship Specialty Start Date End Date Jm Luo MD [address] [facility] [place] [address] PCP - General Internal Medicine 07/18/18 Food Service Assistant Relationship Specialty Start Date End Date Jm Luo MD [address] [facility] [place] [address] PCP - General Internal Medicine 07/18/18 Food Service Assistant Relationship Specialty Start Date End Date Jm Luo MD [address] [facility] [place] [address] PCP - General Internal Medicine 07/18/18 Food Service Assistant Relationship Specialty Start Date End Date Jm Luo MD [address] [facility] [place] [address] PCP - General Internal Medicine 07/18/18 Food Service Assistant Relationship Specialty Start Date End Date Jm Luo MD [address] [facility] [place] [address] PCP - General Internal Medicine 07/18/18 Food Service Assistant Relationship Specialty Start Date End Date Jm Luo MD [address] [facility] [place] [address] PCP - General Internal Medicine 07/18/18 Food Service Assistant Relationship Specialty Start Date End Date Jm Luo MD [address] [facility] [place] [address] PCP - General Internal Medicine 07/18/18 Food Service Assistant Relationship Specialty Start Date End Date Jm Luo MD [address] [facility] [place] [address] PCP - General Internal Medicine 07/18/18 Food Service Assistant Relationship Specialty Start Date End Date Jm Luo MD [address] [place] [address] PCP - General Internal Medicine 07/18/18 Food Service Assistant Relationship Specialty Start Date End Date Jm Luo MD [address] [place] [address] PCP - General Internal Medicine 07/18/18 FOR RECORDS PERTAINING TO PATIENTS WHO ARE OR HAVE BEEN ENROLLED IN A CHEMICAL DEPENDENCY/SUBSTANCEABUSE PROGRAM, SOME INFORMATION MAY BE OMITTED. This clinical summary was aggregated from multiple sources. Caution should be exercised in using it in the provision of clinical care. This summary normalizes information from multiple sources, and as a consequence, information in this document may materially change the coding, format and clinical context of patient data. In addition, data may be omitted in some cases. CLINICAL DECISIONS SHOULD BE BASED ON THE PRIMARY CLINICAL RECORDS. [employer] provides no warranty or guarantee of the accuracy or completeness of information in this document.
[2023-12-11 09:16] LABS: Alcohol, Blood (Medical)-Serum < 3.0 mg/dL
[2023-12-11 09:32] LABS: Amphetamine Urine VISTA NEGATIVE (<1000 ng/mL); Barbiturate Urine VISTA NEGATIVE (< 200 ng/mL); Benzodiazepine Urine VISTA NEGATIVE (< 200 ng/mL); Cocaine Urine VISTA NEGATIVE (< 300 ng/mL); Ecstacy Urine VISTA NEGATIVE (< 500 ng/mL); Methadone Urine VISTA NEGATIVE (< 300 ng/mL); PCP Urine VISTA POSITIVE (< 25 ng/mL); THC Urine VISTA POSITIVE (< 50 ng/mL); Vista UDS pH Range 8
--- NOTE | 2023-12-11 11:12 | CM.ED ---
Addendum entered by Lesly Rojas 12/11/23 12:46: Patient's information provided to crisis along with SW assessment for continuity of care. Pt has history with [facility] and was agreeable to referral. [facility] to reach out to patient for scheduling. PAULETTE Pal Original Note: Social Work SW completed a psychiatric assessment. Pt does not present as a danger to himself or others at this time. Pt is willing to have a referral for counseling services. SW provided patient with anxiety resources, coping skills, and community resources. Pt reports not having a ride home. SW scheduled transportation with [facility] to take patient home. Transport time is at 12:00. SW provided a snack at patient request. No other SW needs indicated at this time. PAULETTE Pal
[2023-12-11 11:23] VITALS: BP 142/93; PULSE 108; RESP 13; O2SAT 98
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
== END 2023-12-11 11:30 | disposition home or self-care (01) ==
PROVIDERS: Emergency Provider Emergency Medicine; PCP Internal Medicine; Visit Provider Emergency Medicine
DX: F17.290 Nicotine dependence, other tobacco product, uncomplicated (principal); F12.20 Cannabis dependence, uncomplicated; F16.929 Hallucinogen use, unspecified with intoxication, unspecified; F22 Delusional disorders; G89.29 Other chronic pain; R00.0 Tachycardia, unspecified; F41.9 Anxiety disorder, unspecified
CPT/HCPCS: 80048; 80307; 80320; 84443; 85025; 93005; 99282; G0480

== ENCOUNTER 2023-12-17 09:25 | Emergency (ER) | payer MEDICAID, SELFPAY ==
[2023-12-17 09:26] VITALS: BP 151/110; PULSE 105; RESP 16; TEMP 36.2; O2SAT 99; BMI 33.4
--- NOTE | 2023-12-17 09:45 | CT_ITS ---
STUDY: CT BRAIN WITHOUT CONTRAST REASON FOR EXAM: Male, 38 years old. Change in Mental Status RADIATION DOSAGE (If Supplied By Facility): CTDIvol = ( 44.99 ) mGy, DLP = ( 829.85 ) mGycm TECHNIQUE: Transaxial CT imaging of the brain was performed without administration of intravenous contrast material. Individualized dose optimization techniques were used for this CT. COMPARISON: Comparison is made with prior study September 02, 2022. FINDINGS: Normal soft tissue structures. Normal calvarium. Normal size ventricles and extra-axial spaces for the patient''s age. Normal white matter tracts of the cerebral hemispheres. Normal basal ganglia and thalami. Normal brainstem. Normal cerebellum. There is no intracranial hemorrhage. There are no findings of an acute ischemic infarction. Mild mucosal thickening at the base of the left maxillary sinus. CT/Brain/Head without Contrast IMPRESSION: Normal unenhanced CT scan of the brain. Electronically Signed: Ross Ortiz MD at 10:18 EST ,
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
[2023-12-17 10:11] LABS: Absolute Lymphocyte Count 1.18 X10^3/uL (0.83-4.51); Absolute Neutrophil Count 6.5 X10^3/uL (2.0-7.7); Basophil# 0.03 X10^3/uL; Basophil% 0.4 % (0-1); Eosinophil# 0.05 X10^3/uL; Eosinophils% 0.6 % (0-5); Hematocrit 46.6 % (40-54); Lymphocyte # 1.18 X10^3/ul (0.83-4.51); Lymphocyte % 14.2 % (19-41); Mean Corp Hgb Conc 32.2 g/dL (32-36); Mean Corpuscular Hgb 30.2 pg (27.0-32.0); Mean Platelet Vol. 10.9 fl (6.2-12.0); Monocyte# 0.47 X10^3/uL; Monocyte% 5.7 % (0-10); NRBC Flagged by Analyzer 0 % (0-5); Neutrophil # 6.54 X10^3/uL (2.7-7.7); Neutrophil % 78.7 % (47-70); Platelet Count 219 K/mm3 (150-450); RBC Distribution Width CV 13.2 % (11.6-14.6); RBC Distribution Width SD 45.3 fl (35.1-43.9); Red Blood Count 4.96 M/mm3 (4.6-6.2); White Blood Count 8.3 K/mm3 (4.4-11.0)
[2023-12-17 10:30] LABS: ALB/GLOB Ratio 1.4 RATIO (0.9-2.4); AST(SGOT) 32 U/L (15-37); Alanine Aminotransfer ALT/SGPT 25 U/L (16-61); Alkaline Phosphatase 67 U/L (45-117); Anion Gap 5 (5-15); BUN 8 mg/dL (7-18); BUN/Creat Ratio 7.5 RATIO (10-20); Calcium,Total 9.3 mg/dL (8.5-10.1); Chloride 109 mmol/L (98-107); Creatinine, Serum 1.07 mg/dL (0.70-1.30); EST Glomerular Filtration Rate 82 mL/min (>60); Est Glom Filt Rate - Afr Amer 99 mL/min (>60); Estimated Creatinine Clearance 119.67 ml/min; Globulin 2.9 g/dL (2.2-4.2); Glucose 108 mg/dL (74-106); Potassium 3.8 mmol/L (3.5-5.1); Protein, Total 6.9 g/dL (6.4-8.2); Sodium Level 142 mmol/L (136-145)
[2023-12-17 10:40] LABS: Amphetamine Urine VISTA NEGATIVE (<1000 ng/mL); Barbiturate Urine VISTA NEGATIVE (< 200 ng/mL); Benzodiazepine Urine VISTA NEGATIVE (< 200 ng/mL); Cocaine Urine VISTA NEGATIVE (< 300 ng/mL); Ecstacy Urine VISTA NEGATIVE (< 500 ng/mL); Methadone Urine VISTA NEGATIVE (< 300 ng/mL); PCP Urine VISTA POSITIVE (< 25 ng/mL); THC Urine VISTA POSITIVE (< 50 ng/mL); Vista UDS pH Range 7
[2023-12-17 10:41] LABS: Alcohol, Blood (Medical)-Serum < 3.0 mg/dL
[2023-12-17 13:14] VITALS: RESP 16
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
== END 2023-12-17 13:15 | disposition home or self-care (01) ==
PROVIDERS: Emergency Provider Student in an Organized Health Care Education/Training Program; PCP Internal Medicine; Visit Provider Student in an Organized Health Care Education/Training Program
DX: S09.90XA Unspecified injury of head, initial encounter (principal); X83.8XXA Intentional self-harm by other specified means, initial encounter; F32.A Depression, unspecified; R45.1 Restlessness and agitation; F41.9 Anxiety disorder, unspecified; Z79.899 Other long term (current) drug therapy; F17.290 Nicotine dependence, other tobacco product, uncomplicated; Y92.89 Other specified places as the place of occurrence of the external cause
CPT/HCPCS: 70450; 80053; 80307; 80320; 85025; 99284; G0480

== ENCOUNTER 2024-12-31 08:00 | Outpatient (RCR) | payer MEDICAID, SELFPAY ==
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
--- NOTE | 2024-12-31 13:48 | BH.COMM ---
Communication Note Communication with Client Communication Note: Met with pt to complete initial paperwork and administer the CSSR-S screening and risk assessment. Pt is a mild risk as pt reports thoughts of and passive SI, but denies any active suicidal ideations, plan, or intent. Pt denies any suicide attempts but has a long history of suicidal ideations. Pt has been hospitalized in the past for suicidal ideation. Pt recently self-harmed by cutting when he was in correction, which pt reported was the first time he did this. No access to weapons. Pt is future oriented. Discussed case with Dr. Castillo and pt will be admitted to [facility] tx with a diagnosis of MDD, recurrent, severe, without psychosis F 33.2
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
--- NOTE | 2025-01-02 09:05 | BH.SGPN.GN ---
Behaviors/Verbalizations/Mental Status: [] Eye contact is good. Motor activity is appropriate. Appearance is disheveled. Speech is Appropriate. Mood is depressed. Affect is congruent. Thoughts are linear and logical. No evidence of psychosis. Reviewed daily check in sheet and pt reports 1/5 for suicidal thoughts and 1/5 for intent. This has been pt's baseline since admission with no imminent risk, Client Response/Progress/Benefit: [] Pt participated at times during the group discussions. Attentive. Off topic at times with comments not tied to group conversations. Daily symptom tracker notes 3/5 for depression and 2/5 for irritability. Shared with the group that he had a recent addiction to ?cough syrup? and discussed a recent event in which a package was sent to his house from [employer] which contained several bottles of cough syrup. Admits that this was a trigger and caused on urge to use, however his conveyor feeder offbearer was over the house when he opened to package. According to patient it was a complete surprise and most likely the result of an error in not removing an automatic re-order from his account. According to pt he canceled the re-order and with his conveyor feeder offbearer returned to order. Reports his overall mental health is ?pretty good?. Limited progress superficial. Benefited from group support, encouragement, and feedback. Will continue in IOP to prevent decompensation, stabilize mental health to aid in recovery, and improve overall functioning Narrative Note: [] Narrative Note: []
--- NOTE | 2025-01-02 10:10 | BH.SGPN.GN ---
Behaviors/Verbalizations/Mental Status: [] Client alert and oriented, casually dressed and groomed. Eye contact fair. Motor activity appropriate. Speech within normal limits. Affect congruent, mood content. Thoughts linear, logical, no signs of hallucinations or delusions. Client Response/Progress/Benefit: [] Pt responded well to session AEB sharing and listening attentively to others. Group provided examples of benefits of having social support, including: validation, get assistance, and accountability. Pt also participated in group discussion regarding the barriers to accessing support identifying examples to include: negative thinking, lack of communication, and lack of trust. Personal example identified as not managing his emotions when upset with others. Pt participated in experiential activity illustrating the impact communication, boundaries, and patience play in creating healthy support systems. Pt appeared to benefit from increased knowledge of the benefits of social support and greater self-awareness. Pt to continue IOP to improve distress tolerance, increase consistent use of healthy coping skills, and prevent decompensation. Narrative Note: []
--- NOTE | 2025-01-02 11:10 | BH.SGPN.GN ---
Behaviors/Verbalizations/Mental Status: []Client alert and oriented, casually dressed and groomed. Eye contact good. Motor activity appropriate. Speech within normal limits. Affect congruent, mood anxious. Thoughts linear, logical, no signs of hallucinations or delusions. Client Response/Progress/Benefit: [] Pt participated throughout AEB contributing to discussion, providing examples, and taking notes. Pt provided input during discussion on the types of support our supports can provide. Pt able to identify current support system and barriers that get in the way of using supports. Pt reported after identifying what type of supports pt receives, pt gained awareness that pt could benefit from more informational support by reaching out to his doctor. Pt seemed to benefit from identifying the type of support pt needs to work on improving. Pt recommended to continue IOP tx to promote mood stability, reduce negative thinking patterns, and improve daily functioning. Narrative Note: []
== END 2025-01-02 23:59 ==
LOC: BHIOP 08:00
PROVIDERS: PCP Internal Medicine; Referring Provider Psychiatry & Neurology Psychiatry; Visit Provider Psychiatry & Neurology Psychiatry
DX: F33.1 Major depressive disorder, recurrent, moderate (principal); F19.21 Other psychoactive substance dependence, in remission; F41.9 Anxiety disorder, unspecified
CPT/HCPCS: H2020; S9480; 90832

== ENCOUNTER 2025-01-05 07:38 | Outpatient (RCR) | payer MEDICAID, SELFPAY ==
--- NOTE | 2025-01-05 09:00 | BH.SGPN.GN ---
Behaviors/Verbalizations/Mental Status: [] Eye contact is good. Motor activity is appropriate. Appearance is disheveled. Speech is Appropriate. Mood is depressed/irritable. Affect is congruent. Thoughts are linear and logical. No evidence of psychosis. Reviewed daily check in sheet and pt reports 1/5 for suicidal ideations and 1/5 for intent. Long-standing and baseline. Client Response/Progress/Benefit: [] Pt participated when prompted. Attentive. Daily symptom tracker notes 3/5 for depression and 2/5 for irritability SI-1 IN-1. Check in was brief and superficial. Reports that he is ?always tired?. Spent the weekend isolating and playing video games which he ironically reports was a win. Isolated with limited purpose or goals. Leaves the house only when required for mental health treatment and probation requirements. He did purchase a bike this weekend and hopes to begin riding when the weather improves. In the past he was very active which helped his mental health. Limited progress noted. Benefited from group support, encouragement, and feedback. Will continue in IOP to prevent??decompensation, stabilize mood, increase healthy coping, and improve functioning. Narrative Note: []
--- NOTE | 2025-01-05 10:10 | BH.SGPN.GN ---
Behaviors/Verbalizations/Mental Status: [] Eye contact is fair. Motor activity is appropriate. Appearance is casual. Speech is Appropriate. Mood is depressed. Affect is constricted. Thoughts are linear and logical. No evidence of psychosis. Client Response/Progress/Benefit: [] Pt was an active participant in group discussions. Attentive during psychoeducation on the 4 communication styles (Passive, Passive-Aggressive, Aggressive, and Assertive) and the obstacles to effective communication. Contributed during interactive discussion on the benefits of communicating effectively. Worked well with peers to identify the benefits and disadvantages to the different communication styles. Pt stated he uses all four different styles of communication and it changes based on who he is talking with. Client stated with his mom he tends to be passive-aggressive and with doctors/friends he tends to be more assertive. Client shared when dealing with people on the phone he can be more aggressive. Benefited from increased understanding of communication styles and how these can impact effective communication. Will continue in IOP to prevent decompensation, increase healthy coping skills, and improve functioning.
--- NOTE | 2025-01-05 11:15 | BH.SGPN.GN ---
Behaviors/Verbalizations/Mental Status: []Pt alert and oriented, casually dressed and groomed. Eye contact good. Motor activity appropriate. Speech within normal limits. Affect congruent, mood content. Thoughts linear, logical, no signs of hallucinations or delusions. Client Response/Progress/Benefit: [] Pt responded well to session AEB Pt listening attentively to others and providing input during group discussion on the pay offs and costs of the different communication styles. Pt able to connect how current communication style impacts mental health. Connected with peers? comments about importance of using assertive communication. Pt seemed to benefit from increasing awareness of healthy strategies to improve communication and worked within small group to identify assertive communication approaches to example scenarios. Identified wanting to work on being more aware of his emotional state to better manage emotions when communicating with others. Will continue IOP tx to prevent decompensation, improve mood stability, and improve daily functioning. ? Narrative Note: []
--- NOTE | 2025-01-07 09:02 | BH.SGPN.GN ---
Behaviors/Verbalizations/Mental Status: [] Client alert and oriented, casual disheveled in appearance. Eye contact fair. Motor activity appropriate. Speech within normal limits. Affect constricted, mood dysthymic. Thoughts linear, logical, no signs of hallucinations or delusions. Reviewed client's symptom tracker, no risk for suicidal ideation, plan, or intent. Client Response/Progress/Benefit: [] Client responded well to session AEB listening to others and sharing thoughts/feelings. Patient reported mental positive as met with catapult and arresting gear officer and the meeting went well. Client stated additional mental positive as using opposite action to engage in activities that he enjoys and like playing video games instead of sleeping. Client stated current stressor as needing to clean the house but finds it overwhelming. Identified emotion as roz. Appeared to benefit from support from peers. Will continue IOP tx to increase consistent utilization of healthy coping skills, challenge distortions, and prevent decompensation. Narrative Note: []
--- NOTE | 2025-01-07 09:21 | BH.MDN ---
Multi-Disciplinary Note Note 30-min Individual: Time Started:: 08:30 Date: 01/07/25 Purpose of session/treatment goals addressed:: To address pt's depressive symptoms by identifying goals pt can realistically set. Eye Contact:: Fair Motor Activity:: Appropriate Appearance:: Disheveled Speech:: Appropriate Mood:: Depressed Affect:: Constricted Thoughts:: Linear, Logical and No evidence of hallucinations/delusions noted Staff Interventions:: thought challenging, motivational interviewing, CBT techniques, strengths perspective, goal setting and other (building social support) Client Response:: Pt responded well to session, open to meeting with therapist. Pt reports that he is confused with his emotions and depression currently because I feel like I have all my needs taken care of, but I'm still not happy. This led to a discussion on Maslow's Hierarchy of needs and let pt gain insight to the things that contribute to overall happiness in life. Pt noted that he has his basic needs and safety met, but he does not feel like he has a purpose. Pt stated he is not sure what he values most in life outside of his free time and my online community. Pt recognizes that being isolated, not having goals and a purpose, and sleeping too much will continue to reinforce his depressive symptoms. Pt stated he has a friend who goes to AA meetings and pt would like to go with his in person, but pt needs to reach out. Pt also wants to work on accomplishing more house work. Pt set a goal to do the litterbox when he gets home and to reach out to his friend by tomorrow. Pt was given a values exploration worksheet for homework. Risks/Concerns:: Pt denies any suicidal ideations, plan, or intent. Pt denies any thoughts of . Progress Toward Goals/Plan:: Limited progress as pt reports he is not on a medication that is helpful to his symptoms. Pt is following through with his probation goals and he is receptive to riding his bike to IOP tx next week which is progress. Pt continues to report lack of motivation, lack of energy, isolation, anhedonia, and increased sleep. Pt will continue IOP tx to prevent decompensation, gain healthy coping skills, and increase ability to function. Time Stopped:: 09:00
--- NOTE | 2025-01-07 10:10 | BH.SGPN.GN ---
Behaviors/Verbalizations/Mental Status: [] Pt alert and oriented, casually dressed and groomed. Eye contact good. Motor activity appropriate. Speech within normal limits. Affect full, mood dysthymic. Thoughts linear, logical, no signs of hallucinations or delusions. Client Response/Progress/Benefit: [] Pt was an engaged participant AEB listening attentively to others, taking notes, and providing feedback in group discussions. Attentive during psychoeducation AEB by note taking. Pt worked along with peers in groups to define inappropriate guilt and appropriate guilt. Group worked together to provide examples of both inappropriate and appropriate guilt. Group identified a canceling plans and snapping at kids as appropriate guilt examples. Group identified setting a being in a down mood and taking responsibility for other?s emotions as having inappropriate guilt. Pt able to connect impact inappropriate guilt can have on MH and overall functioning. Identified struggling at times with self-forgiveness resulting in inappropriate guilt. Benefited from increased awareness of guilt and the differences between appropriate and inappropriate guilt. Pt to continue IOP tx to prevent decompensation, gain healthy coping skills, and increase emotion regulation skills. Narrative Note: []
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
[2025-01-07 10:47] VITALS: BP 128/89; PULSE 88
--- NOTE | 2025-01-07 11:10 | BH.SGPN.GN ---
Behaviors/Verbalizations/Mental Status: []Pt alert and oriented, disheveled appearance. Eye contact good. Motor activity appropriate. Speech within normal limits. Affect congruent, mood depressed. Thoughts linear, logical, no signs of hallucinations or delusions. Client Response/Progress/Benefit: [] Pt was an engaged participant AEB listening attentively to others and providing input throughout group. Pt worked within their small group to identify strategies to manage inappropriate guilt. Identified a personal example of inappropriate guilt as ?feeling guilt for not feeling better and being in a better mood.? Pt wants to work on combatting inappropriate guilt by practicing self-compassion and ?not letting self-pity beat me up.? Pt seemed to benefit from learning about strategies to manage appropriate and inappropriate guilt. Pt to continue IOP tx to prevent decompensation, reduce use of unhealthy coping skills, and improve daily functioning. ?? Narrative Note: []
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
--- NOTE | 2025-01-07 13:08 | BH.DR.ITP ---
Initial Treatment Plan Patient Information Visit Information: ADMISSION DATE: EXPECTED LOS: 4-6 weeks Problems/Symptoms Problem #1:: Depression Symptom:: Sadness, hopelessness, worthlessness, low energy, decreased concentration, anhedonia, biological disruption of appetite, low motivation, frequent suicidal ideation in the past Problem #2:: Anxiety Symptom:: Worry, rumination
--- NOTE | 2025-01-09 09:05 | BH.SGPN.GN ---
Behaviors/Verbalizations/Mental Status: [] Eye contact is good. Motor activity is appropriate. Appearance is disheveled. Speech is Appropriate. Mood is dysthymic and irritable. Affect is congruent. Thoughts are linear and logical. No evidence of psychosis. Reviewed daily check in sheet and pt reports 1/5 for suicidal thoughts and 1/5 for intent. This has been baseline since pt entered the program. Client Response/Progress/Benefit: [] pt participated when prompted. Attentive. Daily symptom tracker notes 3/5 for irritability and 2/5 for depression/anxiety. He continues to isolate and distract with video games which from his perspective is self-care. Limited interest in social interactions or drastic changes to his current life. He reports psychosocial stressors which are mainly situational (dirty house and pets). Has remained sober from cough syrup and according to patient is following through with all probation recommendations. Limited progress. Beneifted from group support, encouragement, and feedback. Will continue in IOP to prevent decompensation, provide support, and increase coping skills. Narrative Note: []
--- NOTE | 2025-01-09 10:10 | BH.SGPN.GN ---
Behaviors/Verbalizations/Mental Status: [] Eye contact is good. Motor activity is appropriate. Appearance is casual. Speech is Appropriate. Mood is content. Affect is congruent. Thoughts are linear and logical. No evidence of psychosis. Client Response/Progress/Benefit: [] Pt receptive of session, actively engaged throughout AEB taking notes, providing input, and contributing in group discussion. Appeared to connect with group topic of automatic thoughts and cognitive distortions, as well as the impact of thought patterns on mental health, coping behaviors, and relationships. This particular group is very heavy on psychoeducation and pt appeared to connect with distortions and how they can impact functioning. Identified struggling with the laeling distortion indicating they label themselves as ugly. Pt appeared to benefit from gaining insight on distorted thinking patterns and how this impacts overall mental health. Will continue IOP to stabilize mood, increase positive self care, and prevent decompensation. Narrative Note: []
--- NOTE | 2025-01-09 11:12 | BH.SGPN.GN ---
Behaviors/Verbalizations/Mental Status: [] Eye contact is good. Motor activity is appropriate. Appearance is casual. Speech is Appropriate. Mood is content. Affect is congruent. Thoughts are linear and logical. No evidence of psychosis. Client Response/Progress/Benefit: [] Pt was an active participant during group discussion. Pt was placed in a smaller group for activity and participated in identifying/combatting example distortions with peers. Pt was engaged in the smaller group, participated in group interactions to brainstorm answers, and appeared to be comprehending cognitive distortions. Pt stated could connect with many of the distortions covered in group. Benefited from gaining further insight and awareness of cognitive distortions as well as practicing ways to reframe and challenge thoughts. Will continue in IOP tx to increase healthy coping skills and thought patterns.
--- NOTE | 2025-01-12 09:00 | BH.SGPN.GN ---
Behaviors/Verbalizations/Mental Status: [] Eye contact is good. Motor activity is disheveled. Appearance is casual. Speech is Appropriate. Mood is anxious. Affect is congruent. Thoughts are linear and logical. No evidence of psychosis. Reviewed daily check in sheet and pt reports 1/5 for suicidal thoughts and 1/5 for intent. This has been baseline since entering IOP. Client Response/Progress/Benefit: [] Pt participated at times during the group discussions. Attentive. Daily symptom tracker notes 2/5 for depression, anxiety, and self-harm urges. Pt reports that he played video games all weekend and ? it felt great?. ? I didn?t do anything?. These days with no responsibilities are reported to be good for his mental health. He describes his weekdays as ?busy? following through with mental health court, IOP, and other requirements. Low frustration tolerance regarding stressors. He has been riding his bike more often with the weather warming up which increases his independence (doesn?t drive), gives him exercise, and decreases isolation. Limited progress noted. Benefited from group support, encouragement, and feedback. Will continue in IOP to prevent decompensation, increase healthy coping, and provide support Narrative Note: []
--- NOTE | 2025-01-12 10:15 | BH.SGPN.GN ---
Behaviors/Verbalizations/Mental Status: []Client alert and oriented, disheveled appearance. Eye contact good. Motor activity appropriate. Speech within normal limits. Affect congruent, mood agitated. Thoughts linear, logical, no signs of hallucinations or delusions. Client Response/Progress/Benefit: [] Pt was an active participant AEB taking notes and engaging in group activity. Connected with the topic of pitfalls and listened to group discussion on barriers that prevent from choosing a healthier path to mental wellness. Group worked together to identify examples of personal pitfalls. These examples included; shutting down, not asking for help, negative thinking patterns, and substance use. Pt benefited from group as Pt learned to better identify potential barriers to improving mental health symptoms. Pt will continue IOP tx to increase distress tolerance, reduce use of unhealthy coping skills, and improve daily functioning. Narrative Note: []
--- NOTE | 2025-01-12 14:34 | BH.MDN ---
Multi-Disciplinary Note Note 30-min Individual: Time Started:: 11:40 Date: 01/12/25 Purpose of session/treatment goals addressed:: To work on behavioral activation goals and to combat distortions. Eye Contact:: Fair Motor Activity:: Restless (shaking leg) Appearance:: Disheveled Speech:: Appropriate Mood:: Irritable Affect:: Constricted Thoughts:: Linear, Logical and No evidence of hallucinations/delusions noted Staff Interventions:: thought challenging, motivational interviewing, CBT techniques, mindfulness skills, goal setting and other (gave pt resources for pain management and community action) Client Response:: Pt responded well to session, open to meeting with therapist. Pt shared he is feeling frustrated today that because I've seen so many psychiatrists and no one listens to me. Pt feels that he is not on any medications that will actually do anything. Pt had been on a high dose of Gabapentin, but got taken off this and was put back on a much lower dose. Per pt's report, pt was told by his outpatient psychiatrist that he would not be put on higher dose due to risk of abuse and lack of medication effectiveness for depression. Pt receptive to gentle thought challenging by therapist as well as discussion on provider concerns. Pt wants to seek treatment from a pain management doctor, so therapist gave pt information for one at [facility] since it is pt's local hospital. Pt also open to continuing to work on behavioral activation goals and pt shared he does not like these, but they do help. Pt rode his bike to [facility] today and plans to do this all week. Pt also set a goal to reach out to a friend this week and work on re-homing some kittens at his house. Risks/Concerns:: Pt denies any suicidal ideations, plan, or intent. Pt denies any thoughts of . Pt denies substance use to therapist and denies misuse of cough medicine. Progress Toward Goals/Plan:: Progress limited as pt reports his depressive symptoms remain unchanged. Pt stated he feels frustrated that he is not on a medication that actually helps me. Pt also feels frustrated that he is not functioning the way he wants at home. Pt receptive to goal setting and resources provided by therapist. Pt encouraged to reduce his caffeine intake as he reports drinking 2-3 energy drinks a day. Pt will continue IOP tx to prevent decompensation, gain distress tolerance skills, and improve daily functioning. Time Stopped:: 12:00
--- NOTE | 2025-01-14 09:00 | BH.SGPN.GN ---
Behaviors/Verbalizations/Mental Status: [] Eye contact is good. Motor activity is appropriate. Appearance is casual. Speech is Appropriate. Mood is content. Affect is congruent. Thoughts are linear and logical. No evidence of psychosis. Reviewed daily check in sheet and no reports of suicidal ideations or intent. Client Response/Progress/Benefit: [] Pt was an active participant in group discussions. Attentive. Daily symptom tracker notes /5 for depression and /5 for anxiety. Did well to identify 2 mental health wins including riding his bike to group today despite not feeling like it, shared he is glad he challenged himself to use opposite action and do so. Additional win noted as riding his bike around further following group on Sunday. Stressor noted as not knowing what to do with kittens that he has at his home right now. Benefited from group support, encouragement, and feedback. Will continue in IOP to prevent decompensation, promote ongoing mood stability, and increase healthy coping. Narrative Note: []
--- NOTE | 2025-01-14 10:10 | BH.SGPN.GN ---
Behaviors/Verbalizations/Mental Status: [] Eye contact is good. Motor activity is appropriate. Appearance is disheveled. Speech is Appropriate. Mood is anxious. Affect is congruent. Thoughts are linear and logical. No evidence of psychosis. Client Response/Progress/Benefit: [] Pt was engaged and participating throughout, providing input and taking notes. Attentive during psychoeducation on anxiety and cognitive triangle. Participated in an interactive discussion on defining anxiety and identifying cognitive and physiological symptoms of anxiety. The group discussed the role of anxiety on isolation, avoidance, and overall functioning. Pt identified their physical/physiological signs of anxiety which includes: tightness in chest or neck and eye discomfort. Benefited from increased awareness and insight on anxiety and its impact. Will continue in IOP to prevent decompensation, decrease isolation, increase support, and increase healthy coping skills. Narrative Note: []
--- NOTE | 2025-01-14 11:10 | BH.SGPN.GN ---
Behaviors/Verbalizations/Mental Status: []Pt alert and oriented, casually dressed and groomed. Eye contact fair. Motor activity appropriate. Speech within normal limits. Affect congruent, mood dysthymic. Thoughts linear, logical, no signs of hallucinations or delusions. Client Response/Progress/Benefit: [] Pt was an active participant AEB pt providing input and listening attentively to peers. Attentive during psychoeducation on mindfulness coping skills and their impact on reducing anxiety and improving overall mental health wellness. Group was able to identify self-soothing and mind-based coping skills which included: 5-senses, meditation, deep breathing, TIPP, thought challenging, categories, and progressive muscle relaxation. Pt also participated with peers in practicing mindfulness skills in session including deep breathing. Pt would like to work on art to manage anxiety. Appeared to benefit from increasing repertoire of anxiety reduction skills. Pt will continue IOP to improve daily functioning, increase healthy coping skills, and prevent decompensation.
--- NOTE | 2025-01-16 09:00 | BH.SGPN.GN ---
Behaviors/Verbalizations/Mental Status: [] Client alert and oriented, casual appearance. Eye contact good. Motor activity appropriate. Speech within normal limits. Affect congruent, mood euthymic and positive. Thoughts linear, logical, no signs of hallucinations or delusions. Reviewed client's symptom tracker, no risk for suicidal ideation, plan, or intent. Client Response/Progress/Benefit: [] Client responded well to session AEB listening to others and sharing thoughts/feelings. Client stated mental positive as being a problem solve a situation with having a lot of neighborhood stray cats by contacting the local [employer]. 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 Client reported additional mental positive as biking beer every morning despite the unpredictable weather. Client stated he has noticed the exercise to be beneficial to his mental health. Client noted current stressor as being on a fixed income which makes it challenging to afford things. Appeared to benefit from support from peers. Will continue IOP tx to consistently apply healthy coping skills, challenge distortions, and prevent decompensation. Narrative Note: []
--- NOTE | 2025-01-16 10:10 | BH.SGPN.GN ---
Behaviors/Verbalizations/Mental Status: [] Eye contact is good. Motor activity is appropriate. Appearance is disheveled. Speech is Appropriate. Mood is dysthymic. Affect is congruent. Thoughts are linear and logical. No evidence of psychosis. Client Response/Progress/Benefit: [] Pt engaged participant AEB listening to others, engaging in activity, and providing feedback at times during discussions. Attentive during psychoeducation and provided insight into obstacles that impede mental wellness. Pt shared with group current mental health reality (toxic relationships, fear, and doubt) and desired mental health reality (clean house, mental stability, and improved physical health). Identified barriers to desired reality. Benefited from taking look at current mental health state and obstacles for progress. Pt to continue IOP tx to prevent decompensation, increase healthy coping, and improve functioning.. Narrative Note: []
--- NOTE | 2025-01-16 11:15 | BH.SGPN.GN ---
Behaviors/Verbalizations/Mental Status: []Pt alert and oriented, casually dressed and groomed. Eye contact good. Motor activity appropriate. Speech within normal limits. Affect congruent, mood content. Thoughts linear, logical, no signs of hallucinations or delusions. Client Response/Progress/Benefit: [] Pt was engaged at times during group discussions and was attentive during group activity. Worked with peers to identify strategies to help overcome barriers and obstacles to desired reality. Group worked together to develop strategies for the common barriers. Identified personal barriers to desired reality and chose one obstacle to work. Pt stated pt wants to work on not self-sabotaging as much by playing video games less this weekend.? Pt seemed to benefit from increased knowledge of practical strategies to overcome common barriers to moving forward. Will continue in IOP to prevent decompensation, increase healthy coping, and improve functioning. Narrative Note: []
--- NOTE | 2025-01-19 11:05 | BH.SGPN.GN ---
Behaviors/Verbalizations/Mental Status: []Eye contact is good. Motor activity is appropriate. Appearance is casual. Speech is Appropriate. Mood is content. Affect is congruent. Thoughts are linear and logical. No evidence of psychosis. Client Response/Progress/Benefit: []Pt was a semi-active participant in group discussion. Engaged and attentive during psychoeducation and interactive discussion on coping skills, why people use unhealthy coping skills, how to replace unhealthy coping skills, and internal vs external coping skills. Attentive as peers came up with list of unhealthy coping skills. Pt reported personally, they have relied on substances to numb in the past. Group discussed the effects of maladaptive coping skills on mental health. Benefited from increased understanding of unhealthy coping skills and the need for developing healthy internal and external coping skills. Actively participated during experiential group activity and was able to related this activity to group topic. Will continue in IOP to improve healthy coping skills, and promote mood stability, and prevent decompensation. Narrative Note: []
--- NOTE | 2025-01-19 11:15 | BH.SGPN.GN ---
Behaviors/Verbalizations/Mental Status: []Pt alert and oriented, disheveled appearance. Eye contact good. Motor activity appropriate. Speech within normal limits. Affect congruent, mood depressed. Thoughts linear, logical, no signs of hallucinations or delusions. Client Response/Progress/Benefit: [] Pt responded well to session, taking notes and contributing when prompted. Group discussed the different categories of coping skills which included distraction, emotional release, grounding, self-love, and thought challenging. Pt participated in creating a coping skills ?menu? from the different categories of coping skills. Pt's coping skill menu included: video games, guided meditation, activating logic brain, and reading. Appeared to benefit from increasing their repertoire of healthy coping skills. Will continue IOP to promote mood stability, reduce isolation and avoidance, and improve daily functioning. ? Narrative Note: []
--- NOTE | 2025-01-19 14:57 | BH.MDN ---
Multi-Disciplinary Note Note 30-min Individual: Time Started:: 09:20 Date: 01/19/25 Purpose of session/treatment goals addressed:: To work on goal #1 of pt's tx plan by challenging pt's perspective and goal setting. Eye Contact:: Fair Motor Activity:: Appropriate Appearance:: Disheveled Speech:: Appropriate Mood:: Depressed and Other (mood more hopeful by the end of session) Affect:: Constricted Thoughts:: Linear, Logical and No evidence of hallucinations/delusions noted Staff Interventions:: thought challenging (dialectical thinking ), motivational interviewing, psychoeducation on: (locus of control), CBT techniques and strengths perspective Client Response:: Pt responded well to session, open to meeting with therapist. Pt reports feeling down today and somewhat frustrated that there is a lot out of his control and that he feels providers do not listen to him about medications. Pt used some of session to vent and process his frustrations, but he also did well with thought challenging by therapist. Pt learned about locus of control and he could recognize that he currently has an external locus of control. Pt shared that his belief system is rooted in knowing that a lot of things start with the mind. Pt responded well to learning about dialectical thinking and how this could help pt find ways to take control and action in his life. Discussed how one thing pt has control over is how much time he spends online doing things he is passionate about versus procrastinating and distracting himself. Pt also noted that he cannot control his pain, but pt recognized that last week when he rode his bike to IOP he had more energy and his mood was more positive which can help with pain. Pt left session less irritable and more engaged. Risks/Concerns:: Pt reports feeling more depressed today, but he denies any suicidal ideations, plan, or intent as of 01/19/25. Progress Toward Goals/Plan:: Pt's progress is mild as pt reports without the dose of Gabapentin he was on before, pt feels that his symptoms will not resolve. Pt does have awareness that his perspective towards his stressors, symptoms, and circumstances does impact how pt betty. Pt admitted that after session today he felt more hopeful and that he could do something to change his situation. Pt continues to struggle with completing goals per his report. Pt will continue IOP tx to promote distress tolerance skills, reduce negative thinking patterns, and increase internal motivation. Time Stopped:: 09:55
--- NOTE | 2025-01-22 09:00 | BH.SGPN.GN ---
Behaviors/Verbalizations/Mental Status: [] Client alert and oriented, casual appearance. Eye contact good. Motor activity appropriate. Speech within normal limits. Affect congruent, mood euthymic. Thoughts linear, logical, no signs of hallucinations or delusions. Reviewed client's symptom tracker, no risk for suicidal ideation, plan, or intent. Client Response/Progress/Benefit: [] Client responded well to session AEB listening to others and sharing thoughts/feelings. Client reported mental positive as accomplishing at least 1 chore by taking out the trash. Client reported additional mental positive as making a decision that he wants to focus on getting back in shape because it was helpful to his mood when he was working out more. Client noted mental stressor as being out of shape and continuing to sleep a lot throughout each day. Appeared to benefit from support from peers. Will continue IOP tx to increase consistent utilization of healthy coping skills, challenge distortions, and prevent decompensation. Narrative Note: []
--- NOTE | 2025-01-22 10:15 | BH.SGPN.GN ---
Behaviors/Verbalizations/Mental Status: [] Pt alert and oriented, disheveled. Eye contact good. Motor activity appropriate. Speech within normal limits. Affect congruent, mood dysthymic. Thoughts linear, logical, no signs of hallucinations or delusions. Client Response/Progress/Benefit: [] Pt participated at times during group discussions. Attentive during psychoeducation on the CBT [place] (Thoughts, Behaviors, Emotions). Engaged in group discussion on how thoughts and behaviors can contribute to maintaining adverse feelings, such as depression, anxiety, and irritability. Completed worksheet in which pt identified obstacles and/or thoughts that are keeping them stuck. Shared thoughts that included; Things will never get better; I'm stuck this way; Nothing matters . Pt benefited from increased awareness of the basis of CBT therapy as well as specific thoughts that are impacting pt's progress. Will continue in IOP to prevent decompensation, increase healthy coping strategies, and improve functioning. Narrative Note: []
--- NOTE | 2025-01-22 11:15 | BH.SGPN.GN ---
Behaviors/Verbalizations/Mental Status: []Pt alert and oriented, casually dressed and groomed. Eye contact good. Motor activity appropriate. Speech within normal limits. Affect congruent, mood content. Thoughts linear, logical, no signs of hallucinations or delusions. Client Response/Progress/Benefit: [] Pt responded well to session, contributing to discussion and attentive throughout. Pt identified a negative thought that has kept them stuck. Pt's thought was Things will never get better.? Pt reported when they think this way, pt isolates, speaks negatively to himself, and resists doing things. Pt worked to reframe the thought by finding more rational, realistic ways to look at the thoughts and then processed them within group setting. Pt reframed the thought to ?You are working on improving things.? Pt appeared to benefit from practicing challenging negative thinking with peers and gaining coping skills. Pt will continue IOP tx to promote mood stability, increase thought challenging, and further increase self-care. Narrative Note: []
--- NOTE | 2025-01-23 09:05 | BH.SGPN.GN ---
Behaviors/Verbalizations/Mental Status: [] Eye contact is good. Motor activity is appropriate. Appearance is disheveled. Speech is Appropriate. Mood is depressed and irritable. Affect is congruent. Thoughts are linear and logical. No evidence of psychosis. Reviewed daily check in sheet and no reports of suicidal ideations or intent. Client Response/Progress/Benefit: [] Pt participated at times during the group discussion. Attentive. He reports being more active and engaged. He vacuumed his house and also cut his hair. Despite this progress her reports ?I?m tired of feeling tired?. ?I just want to enjoy life?. He attributes this to his depression. Limited progress noted. Benefited from group support, encouragement, and feedback. Will continue in IOP to prevent decompensation, increase healthy coping, and improve functioning. Narrative Note: []
--- NOTE | 2025-01-23 10:15 | BH.SGPN.GN ---
Behaviors/Verbalizations/Mental Status: []Pt alert and oriented, casually dressed and groomed. Eye contact good. Motor activity appropriate. Speech within normal limits. Affect congruent, mood content. Thoughts linear, logical, no signs of hallucinations or delusions. Client Response/Progress/Benefit: []Pt was an active participant in group discussion and activity. Attentive during psychoeducation. Along with peers, pt was able to identify barriers to taking action in their life. Identified several symptoms and stressors that pt feels are holding them back from progress such as poor motivation, lack of direction, and negative self-talk. Stated these things have kept pt from making consistent healthy changes in his life. Pt shared that he wants to begin addressing lack of motivation. Benefited from increased self-awareness of obstacles. Will continue IOP tx to improve mood stability, promote consistent skill application, and further improve self-care. Narrative Note: []
--- NOTE | 2025-01-23 11:10 | BH.SGPN.GN ---
Behaviors/Verbalizations/Mental Status: []Pt alert and oriented, casually dressed and groomed. Eye contact fair. Motor activity appropriate. Speech within normal limits. Affect congruent, mood dysthymic. Thoughts linear, logical, no signs of hallucinations or delusions. Client Response/Progress/Benefit: [] Pt responded well to session, taking notes and participating in worksheet discussion. Pt connected with the discussion on action steps, and this helped pt learn how to set goals differently. Pt set a SMART goal to start working out at least once a week starting this Sunday. Pt shared setting alarms, positive thoughts, and using visualizations will support him in accomplishing this goal. Appeared to benefit from identifying a small goal to benefit mental health. Pt is to continue IOP to improve consistent use of healthy coping skills, challenge distortions, and prevent decompensation.
--- NOTE | 2025-01-26 09:00 | BH.SGPN.GN ---
Behaviors/Verbalizations/Mental Status: [] Eye contact is good. Motor activity is appropriate. Appearance is disheveled. Speech is Appropriate. Mood is dysthymic. Affect is congruent. Thoughts are linear and logical. No evidence of psychosis. Reviewed daily check in sheet and no reports of suicidal ideations or intent. Client Response/Progress/Benefit: [] Pt participated at times during the group discussions. Attentive. ? I forced myself to get out of bed this morning? Continues to struggle with energy, motivation, and purpose. He is making a conscious effort to practive behavioral activation and opposite-action, however these appear to be his primary skills. Progress noted. Benefited from group support, encouragement, and feedback. Will continue in IOP to prevent decompensation, increase health coping, and improve functioning Narrative Note: []
--- NOTE | 2025-01-26 10:20 | BH.SGPN.GN ---
Behaviors/Verbalizations/Mental Status: []Pt alert and oriented, casually dressed and groomed. Eye contact good. Motor activity appropriate. Speech within normal limits. Affect congruent, mood calm. Thoughts linear, logical, no signs of hallucinations or delusions. Client Response/Progress/Benefit: [] Pt was attentive during psychoeducation and participated in group activity. Group discussed what contributes to a person?s perspective and how perspective can positively or negatively impact mental health treatment. Pt reflected on their perspective today and how it is impacting them. Pt shared their perspective is ?negative? and stated belief that he feels treatment ?won?t work.? ?Pt appeared to benefit from increasing awareness of different perspectives and how they can affect mental health. Pt will continue IOP tx to prevent decompensation, increase use of healthy coping skills, and reduce negative thinking patterns. ??? Narrative Note: []
--- NOTE | 2025-01-26 11:20 | BH.SGPN.GN ---
Behaviors/Verbalizations/Mental Status: []Pt alert and oriented, casually dressed and groomed. Eye contact good. Motor activity appropriate. Speech within normal limits. Affect congruent, mood content. Thoughts linear, logical, no signs of hallucinations or delusions. Client Response/Progress/Benefit: []Pt was attentive and contributed to group discussion. Pt worked with group to identify strategies that can help with challenging negative perspective. Pt stated they can practice using thought challenging to challenge negative perspective. Pt completed strengths exploration worksheet, identifying personal strengths. Pt able to acknowledge how these strengths are helping pt and can continue to help pt in mental health journey. Pt identified wanting to work on leaning on strength of humor. Benefited from identifying personal strengths and strategies for enhancing use of identified strengths. Pt will continue IOP tx to continue improve functioning, mood stability, and prevent decompensation. Narrative Note: []
--- NOTE | 2025-01-28 09:00 | BH.SGPN.GN ---
Behaviors/Verbalizations/Mental Status: [] Eye contact is good. Motor activity is appropriate. Appearance is casual. Speech is Appropriate. Mood is depressed. Affect is congruent. Thoughts are linear and logical. No evidence of psychosis. Reviewed daily check in sheet and no reports of suicidal ideations or intent. Client Response/Progress/Benefit: [] Pt was an active participant in group discussions. Attentive. Did well to identify 2 mental health wins. Wins included folding laundry. Reflected that this did help improve his mood and sense of accomplishment. 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 Stressor noted as struggling with low energy and escaping into the online world. Benefited from group support, encouragement, and feedback. Will continue in IOP to prevent decompensation, promote mood stability, and increase consistent use of healthy coping. Narrative Note: []
--- NOTE | 2025-01-28 09:01 | BH.MDN_ITS ---
Multi-Disciplinary Note Note 30-min Individual: Time Started:: 08:40 Date: 01/28/25 Purpose of session/treatment goals addressed:: To work on goal setting, review progress, and identify any current barriers to treatment. Eye Contact:: Fair Motor Activity:: Appropriate Appearance:: Disheveled Speech:: Appropriate Mood:: Depressed Affect:: Constricted Thoughts:: Linear, Logical and No evidence of hallucinations/delusions noted Staff Interventions:: thought challenging, motivational interviewing, discharge planning, strengths perspective, reviewed DSM-5 and goal setting Client Response:: Pt responded well to session, open to meeting with lauren ochoa, but pt reports not having much to talk about today. Pt shared he continues to feel in pain, tired, and have no motivation. Pt shared he has not called the pain management doctor and he just wishes a psychiatrist would listen to me. Therapist empathized with pt while reminding pt that pain also has a psychological component. Pt could connect with this and although pt sees a connection between his mood and his physical pain, pt admits that he still is unable to make himself engage in activities that could help such as walking and getting things down around the house within reason. Pt also reports napping and drinking energy drinks which pt does not feel are problematic, but could be contributing to his energy imbalance. Discussed plan for care including discharge and review scores. Pt will need an outpatient therapist and pt would like to see someone virtually. Risks/Concerns:: Pt denies any suicidal ideations, plan, or intent. Pt denies any thoughts of . Progress Toward Goals/Plan:: Pt's progress is mild as pt reports inconsistent follow through with goals outside of IOP due to his low motivation per pt report. Pt continues to be consistent with getting to IOP which is helpful to his mood on the days he is here. Pt does have awareness that his perspective towards his stressors, symptoms, and circumstances does impact how pt betty and so do his behaviors. Pt admits that he has still not called the pain management doctor and was encouraged to do this again today. Pt will continue IOP tx to promote distress tolerance skills, reduce negative thinking patterns, and increase internal motivation. Time Stopped:: 09:00
--- NOTE | 2025-01-28 10:10 | BH.SGPN.GN ---
Behaviors/Verbalizations/Mental Status: []Pt alert and oriented, disheveled appearance. Eye contact good. Motor activity appropriate. Speech within normal limits. Affect congruent, mood depressed. Thoughts linear, logical, no signs of hallucinations or delusions. Client Response/Progress/Benefit: []Pt participated during small group discussions. Attentive during psychoeducation about defense mechanisms. Showed engagement during small group discussions and helped group identify which defense mechanisms were maladaptive, adaptive, or ?somewhere in the tucker.? Pt worked with small group on identifying how each defense mechanism can impact mental health and gave examples. ?Seemed to benefit from gaining awareness about the different defense mechanisms. Pt to continue IOP tx to prevent decompensation, increase ability to use dialectical thinking, and improve daily functioning. Narrative Note: []
--- NOTE | 2025-01-28 11:10 | BH.SGPN.GN ---
Behaviors/Verbalizations/Mental Status: []Pt alert and oriented, disheveled appearance. Eye contact good. Motor activity appropriate. Speech within normal limits. Affect congruent, mood depressed. Thoughts linear, logical, no signs of hallucinations or delusions. Client Response/Progress/Benefit: []Pt responded well to session, participating in activity and small group discussion. Group reviewed the rest of the defense mechanisms and discussed how these are adaptive, maladaptive, or somewhere in the tucker. Pt's defense mechanisms included denial, anticipation, and self-discipline. Pt stated he knows he uses denial, but ?I like to escape and pretend the world doesn?t exist.? Pt listened to boot turner teach different skills to help pt?s cope with or change their defense mechanisms. Pt appeared to benefit from gaining insight to the different defense mechanisms and learning coping skills. Pt will continue IOP tx to prevent decompensation, improve daily functioning, and reduce isolation/avoidance. Narrative Note: []
--- NOTE | 2025-01-28 12:17 | PCM.BH.PN ---
Progress Note Progress Note: History of Present Illness/Interim History: The patient is a 39-year-old single male with a history of depression, anxiety and substance abuse who is seen in follow-up at the [facility] behavioral health [facility]. I last saw the patient 3 weeks ago and at that time no medication changes were made. The patient has a history of depression, anxiety, psychosis, dextromethorphan use disorder, marijuana use disorder and alcohol use disorder. He has been sober from all 3 substances since January 2024. He is having legal issues and is currently on probation and that is part of his motivation for doing the IOP and for staying sober. The patient states overall his anxiety is less than last visit but his mood remains depressed. He does feel he is learning skills in the program but he feels like he has low energy. He denies any self-harm since last visit and is still sober from all drug use. No vomiting or purging ever. He denies passive thoughts of , suicidal ideation, homicidal ideation, hallucinations or delusions. Current Psychiatric Medications: [] Cymbalta 30 mg in the morning and 60 mg at bedtime (x 6 months); nortriptyline 25 mg p.o. nightly; Zyprexa 5 mg p.o. nightly; gabapentin 100 mg p.o. 3 times daily Mental Status Examination: [] The patient is a 39-year-old male who appears normal for stated age and is somewhat disheveled in clothing and grooming. He has no psychomotor agitation or retardation and is ambulatory with a normal gait. He is cooperative during the interview. Eye contact is good and speech is normal rate and rhythm and fluent with no pressure. Mood is depressed. Affect is mildly constricted. Thought process is goal-directed and organized. Thought content: There is evidence that the patient is legally motivated to be here but feels he is learning from the program. There is no evidence of passive thoughts of , suicidal ideation, homicidal ideation, plan for suicide, hallucinations or delusions. Reality testing is intact. Intelligence is average. Judgment is intact. Insight is somewhat poor. Impulsivity is moderate to high. Diagnoses: [] 1. Major depressive disorder, recurrent, moderate 2. Anxiety disorder, NOS 3. Dextromethorphan use disorder (sober x 1 year) 4. Cluster B traits 5. Legal and primary support issues Plan: [] The patient will continue the IOP in behavioral health at [facility] as the structure, support, education and group therapy will hopefully prevent worsening of the patient's symptoms that could require rehospitalization. He agrees to remain sober from all drug use. The risk, options, possible complications and side effects of the medications were again discussed with the patient and he understands accepts these. He agrees to try Wellbutrin XL 150 mg p.o. in the morning to help with his depression. Prescription is sent in for this. He will continue to follow-up with his outpatient providers and I will see the patient in follow-up in 2 weeks.
--- NOTE | 2025-01-28 14:14 | BH.MTP_ITS ---
Treatment Plan Review Demographics Date of Admission:: 12/31/24 Date of Treatment Plan Review:: 01/28/25 Admitting Diagnoses:: Major depressive disorder, recurrent, moderate; Anxiety disorder, NOS; Dextromethorphan use disorder (sober x 1 year); Cluster B traits (borderline and narcissistic) Current Diagnoses:: Major depressive disorder, recurrent, moderate; Anxiety disorder, NOS; Dextromethorphan use disorder (sober x 1 year); Cluster B traits (borderline and narcissistic) Patient Status Patient's Response to Treatment:: Pt has responded mostly well to IOP treatment AEB consistently attending IOP and engaging in both individual and group therapy sessions. However, pt has expressed on several occasions that he does not think the program will help him as pt feels he is not getting the proper medication. Pt reports doing some of his goals discussed in individual sessions, but pt admits that he is not following through with goals around exercising or socializing. Pt's mood does appear to improve on the days he walks or rides his bike to [facility] tx which therapist is continues to encourage. Despite his barriers, Pt's overall DSM-5 scores have decreased by 14% since admission. Status of Current Problems and Symptoms: Pt's symptoms are ongoing and although pt's scores have decreased, pt's mood and functioning has not changed significantly since admission. Primary stressors include; pain, feeling unheard by physicians regarding medications, and lack of energy and motivation. 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 However, pt has not called the pain management doctor yet. Pt reports psychosocial stressors with his mom and living situation as another contributor to his depressed mood. Progress Problem #1: Problem Name:: Depression, isolation, and lack of motivation. Status of Goals:: Objective 1- in progress. Pt can identify numerous coping skills to help his depression including dialectical thinking, goal setting, and opposite action. Pt's scores also decreased by 25% since admission. However, pt admits to inconsistent application of coping skills and a hard time implementing opposite action outside of IOP. Pt reports his pain and fatigue impact his ability to use coping skills. Team Recommendations:: Team recommends continued goals and objectives as pt's scores have decreased, but pt continues to report lack of motivation, energy, and not having consistent follow through with goals. Team recommends pt continue working on combating distortions, dialectical thinking, and maintaining a routine. Problem #2: Problem Name:: Low distress tolerance and anxiety Status of Goals:: Objective 1- in progress. Through group and individual sessions, pt has learned different distress management skills including deep breathing, DDD, and self-talk. Pt reports his anxiety is mostly under control. Team Recommendations:: treatment team encourages pt to continue working on distress tolerance skills and learning how to manage his triggers. Therapist continues to encourage pt to exercise and get out of the house as this was helpful to pt in the past.
--- NOTE | 2025-01-29 09:00 | BH.SGPN.GN ---
Behaviors/Verbalizations/Mental Status: []Pt alert and oriented, well groomed and casually dressed. Eye contact good. Motor activity appropriate. Speech within normal limits. Affect congruent. mood content and sad. Thoughts linear, logical, no signs of hallucinations or delusions. Reviewed pt?s symptom tracker, no risk for suicidal ideation, plan, or intent 01/19/25. Client Response/Progress/Benefit: []Pt was an active participant in group discussions. Attentive. Able to identify mental health wins including accomplishing a lot of stuff I didn't want to yesterday. Pt shared he did laundry, showered, and cooked. Pt admits that he struggles to give himself credit for these things, but the group helped challenge this. Pt's stressor today is seeing my mom's health decline. Pt stated feeling upset this morning due to thinking about his mother's health. Pt receptive to feedback and emotional support from peers which pt reported was helpful. Progress noted. Benefited from group support, encouragement, and feedback. Will continue in IOP to prevent decompensation, improve distress tolerance, and reduce negative thinking. Narrative Note: []
--- NOTE | 2025-01-29 10:15 | BH.SGPN.GN ---
Behaviors/Verbalizations/Mental Status: []Pt alert and oriented, casually dressed and groomed. Eye contact good. Motor activity appropriate. Speech within normal limits. Affect congruent, mood dysthymic. Thoughts linear, logical, no signs of hallucinations or delusions. Client Response/Progress/Benefit: [] Pt receptive to session AEB contributing to group discussion, as well as listening attentively to others, and taking notes. Worked with group to brainstorm the positive and negative aspects of stress on physical and mental health as well as the impact of distress on performance, relationships, and mental health. Pt shared their current personal top stressors to be: probation, mom's health, and managing his mental health. Shared when feeling overwhelmed with stress pt tends to lash out or numb himself. Benefited from increased awareness of positive and negative stress as well as how stress impact individuals. Will continue in IOP to prevent decompensation, increase distress tolerance, and improve dialectical thinking. Narrative Note: []
--- NOTE | 2025-01-29 11:15 | BH.SGPN.GN ---
Behaviors/Verbalizations/Mental Status: [] Pt alert and oriented. Disheveled. Eye contact good. Motor activity appropriate. Speech within normal limits. Affect congruent, mood depressed. Thoughts linear, logical, no signs of hallucinations or delusions. Client Response/Progress/Benefit: [] Pt receptive to session AEB contributing to group discussion, as well as listening attentively to others, and taking notes. Worked with group to brainstorm the positive and negative aspects of stress on physical and mental health as well as the impact of stress on performance, relationships, and mental health. Pt shared their top stressors to be: his depression, probation/legal, and his mother's health. Identified the strategey of accept to use towards stressor of probation and mother's health Benefited from increased awareness of positive and negative stress as well as how stress impact individuals. Will continue in IOP to prevent decompensation, provide support, increase healthy coping, and improve functioning. Narrative Note: []
--- NOTE | 2025-02-02 09:05 | BH.SGPN.GN ---
Behaviors/Verbalizations/Mental Status: [] Eye contact is poor. Motor activity is appropriate. Appearance is disheveled. Speech is Appropriate. Mood is depressed and irritable. Affect is congruent. Thoughts are linear and logical. No evidence of psychosis. Reviewed daily check in sheet and no reports of suicidal ideations or intent. Client Response/Progress/Benefit: [] Pt participated when prompted. Attentive. Superficial check-in. Spent majority of the weekend playing video games. However, was able to complete a few tasks and responsibilities. He described following through with tasks as exhausting and overwhelming. States he has to force himself through oppositive-action to complete very simple tasks. Limited progress. Benefits from support and socialization. Will continue in IOP to prevent decompensation and increase healthy coping. Narrative Note: []
--- NOTE | 2025-02-02 10:10 | BH.SGPN.GN ---
Behaviors/Verbalizations/Mental Status: [] Client alert and oriented, casual appearance. Eye contact fair. Motor activity appropriate. Speech within normal limits. Affect congruent, mood dysthymic. Thoughts linear, logical, no signs of hallucinations or delusions. Client Response/Progress/Benefit: []Client engaged participant during group session as evidenced by contributions during group discussions, appearing to listen to others, and taking notes. Client engaged in discussion about barriers that keep people from having difficult confrontations. Group identified potential consequences to avoiding difficult conversations are resentment, increased anxiety, needs not met, increased conflict, and negative thoughts. Client appeared attentive during psychoeducation about techniques and skills to help have crucial conversations. Client seemed to benefit from increased awareness and education about importance of having difficult conversations and recognizing the impact of avoiding such conversations. Client to continue IOP to challenge distortions, increase utilization of healthy coping skills, and prevent decompensation.
--- NOTE | 2025-02-02 11:15 | BH.SGPN.GN ---
Behaviors/Verbalizations/Mental Status: []Pt alert and oriented, disheveled appearance. Eye contact good. Motor activity appropriate. Speech within normal limits. Affect constricted, mood irritable. Thoughts linear, logical, no signs of hallucinations or delusions. Client Response/Progress/Benefit: [] Pt was an active participant, engaged in activities and discussion. Pt able to identify ways they negatively contribute to crucial conversations and pt was engaged during psychoeducation of the different ways to build interpersonal effectiveness skills. Pt and peers practiced mirroring and active listening in partners. Group reviewed [employer] and used the handout to help map out how they would like a crucial conversation in their life to go. Pt identified a conversation pt needs to have with his mother about cleaning her room. Pt practiced I-statements and identified ways he could negotiate with his mom. Pt appeared to benefit from learning and practicing interpersonal effectiveness skills. Pt will continue IOP tx to prevent decompensation, reduce isolation, and improve daily functioning. Narrative Note: []
== END 2025-02-02 23:59 ==
LOC: BHIOP 07:38
PROVIDERS: PCP Internal Medicine; Referring Provider Psychiatry & Neurology Psychiatry; Visit Provider Psychiatry & Neurology Psychiatry
DX: F33.1 Major depressive disorder, recurrent, moderate (principal); F41.9 Anxiety disorder, unspecified; F15.90 Other stimulant use, unspecified, uncomplicated
CPT/HCPCS: H2012; H2020; S9480; 90832

== ENCOUNTER 2025-02-03 07:08 | Outpatient (RCR) | payer MEDICAID, SELFPAY ==
[2025-02-03 00:23] VITALS: BP 128/89; PULSE 88
--- NOTE | 2025-02-04 10:10 | BH.SGPN.GN ---
Behaviors/Verbalizations/Mental Status: [] Eye contact is good. Motor activity is appropriate. Appearance is dischevled. Speech is Appropriate. Mood is depressed/irritable. Affect is congruent. Thoughts are linear and logical. No evidence of psychosis. Client Response/Progress/Benefit: [] Pt participated at times during the group discussions. Attentive during psychoeducation AEB note taking and completing worksheets. Worked within his small group to identify benefits of healthy sleep routine which include decreased stress, more energy, improved decision-making, improved health benefits, improved focus, and decreased anger. Pt and peers also identified the consequences of poor sleep which included irritability, crankiness, feeling on edge, increase arguments, poor emotion regulation, low energy, low motivation, and more challenging to engage with support. Also participated in discussion on the obstacles and barriers that can prevent one from obtaining good sleep. Benefited from group to increase awareness and education on importance of sleep and healthy/unhealthy choices that impact sleep. Will continue in IOP to prevent decompensation, provide support, and increase healthy coping. Narrative Note: []
--- NOTE | 2025-02-04 11:15 | BH.SGPN.GN ---
Behaviors/Verbalizations/Mental Status: []Pt alert and oriented, casually dressed and groomed. Eye contact good. Motor activity appropriate. Speech within normal limits. Affect congruent, mood content. Thoughts linear, logical, no signs of hallucinations or delusions. Client Response/Progress/Benefit: [] Pt responded well to session, participating in small group discussion. Group reviewed the rest of the ?Do?s and Don?ts? of healthy sleep hygiene. Pt worked to identify their current schedule leading up to sleep and review areas that may be helping or hindering healthy sleep. Worked with group to identify strategies to improve sleep routines. Pt identified wanting to improve consistency in his sleep wake times. Pt appeared to benefit from gaining insight to the different behaviors that can adversely effect sleep, as well as learning skills for improving sleep hygiene. Pt will continue IOP tx to prevent decompensation, improve daily functioning, and gain healthy coping skills. Narrative Note: []
--- NOTE | 2025-02-04 15:00 | BH.MDN ---
Multi-Disciplinary Note Note 30-min Individual: Time Started:: 09:20 Date: 02/04/25 Purpose of session/treatment goals addressed:: Discharge planning and motivational interviewing. Eye Contact:: Fair Motor Activity:: Restless Appearance:: Disheveled Speech:: Appropriate Mood:: Irritable Affect:: Constricted Thoughts:: Linear, Logical and No evidence of hallucinations/delusions noted Staff Interventions:: motivational interviewing (Attempted to help pt build discrepancy between pt's values and goals and his current actions ), CBT techniques and discharge planning Client Response:: Pt responded somewhat well to session, pt appeared irritable and reported he did not have much to talk about today. Pt shared he has been doing some things around the house including doing some dishes, taking care of the cats, and he did some online things he enjoys. Pt admits he has not followed through with going for walks, reaching out to a friend, or spending time outside of the basement. When therapist offered to provide extra support (walk with pt during session) pt declined. Pt shared he says no because I feel bad because I should be able to do this by myself. Therapist used thought challenging to help pt shift his perspective. Pt has been sober which is positive and he has been consistent with IOP even on days that he did not have transportation. Pt rode his bike or walked on days he did not have transportation, and therapist attempted to help pt see the connection between physical activity and improved mood. Pt encouraged to continue using opposite action. Pt has an appointment with Dr. Shay next week and pt hopes he gets a medication change. Risks/Concerns:: Pt denies any active SI, plan, or intent. Pt denies substance abuse. Progress Toward Goals/Plan:: Pt's progress is mild as pt reports inconsistent follow through with goals outside of IOP due to his low motivation per pt report. Pt continues to be consistent with getting to IOP which is helpful to his mood on the days he is here. Pt does have awareness that his perspective towards his stressors, symptoms, and circumstances does impact how pt betty and so do his behaviors. Pt reported today that he knows there are things he could be doing that are helpful, but pt is not able to get myself to do it. Pt will continue IOP tx to promote distress tolerance skills, reduce negative thinking patterns, and increase internal motivation. Time Stopped:: 09:45
--- NOTE | 2025-02-05 09:05 | BH.SGPN.GN ---
Behaviors/Verbalizations/Mental Status: [] Eye contact is good. Motor activity is appropriate. Appearance is disheveled. Speech is Appropriate. Mood is dysthymic. Affect is congruent. Thoughts are linear and logical. No evidence of psychosis. Reviewed daily check in sheet and no reports of suicidal ideations or intent Client Response/Progress/Benefit: [] Pt participated when prompted. Attentive. Check-in was brief and superficial. I'm sleeping a lot. He continues to focus entirely on completing small tasks daily. Finds this helps him feel accomplished. Primary skill is opposite action. Limited stressors and social interaction. Continues to isolate however he seemingly prefers and is not seeking social connections. Limited progress noted. Benefited from group support, encouragement, and feedback. Will continue in IOP to prevent decompensation, provide support, and increase healthy coping. Narrative Note: []
--- NOTE | 2025-02-05 10:15 | BH.SGPN.GN ---
Behaviors/Verbalizations/Mental Status: []Pt alert and oriented, disheveled appearance. Eye contact good. Motor activity appropriate. Speech within normal limits. Affect congruent, mood calm. Thoughts linear, logical, no signs of hallucinations or delusions. Client Response/Progress/Benefit: [] Pt was an active participate AEB listening attentively to others and contributing during group discussions, participating in activity, and taking notes throughout. Attentive and provided input as the group identified ways we can hurt others or sabotage self by not regulating our emotions. Participated with peers to identify ways emotions impact communication. Provided an example of lashing out when angry. Participated during group activity. Pt benefited from session by gaining an increased understanding on the importance of managing emotions to improve daily functioning. Will continue IOP tx to increase distress tolerance skills, reduce isolation, and improve daily functioning. Narrative Note: []
--- NOTE | 2025-02-05 11:15 | BH.SGPN.GN ---
Behaviors/Verbalizations/Mental Status: [] Client alert and oriented, casually dressed and groomed. Eye contact good. Motor activity appropriate. Speech within normal limits. Affect congruent, mood euthymic. Thoughts linear, logical, no signs of hallucinations or delusions. Client Response/Progress/Benefit: [] Client engaged in session AEB client listening attentively to peers and providing input. Attentive during psychoeducation on 4 zones of regulation. Pt able to identify feelings and behaviors for each zone. Pt identified coping skills one can use to support self in each zone. Pt stated belief that pt is in the yellow zone today. Pt reports plan to be productive with energy today by engaging in healthy hobbies such as riding his bike. Benefited from increased education on zones of regulation or stages of alertness for emotions and healthy coping skills to use for each zone. Pt will continue IOP tx to increase self-awareness, improve emotional regulation skills, and prevent decompensation. Narrative Note: []
--- NOTE | 2025-02-11 09:05 | BH.SGPN.GN ---
Behaviors/Verbalizations/Mental Status: [] Eye contact is good. Motor activity is appropriate. Appearance is disheveled. Speech is Appropriate. Mood is dysthymic. Affect is congruent. Thoughts are linear and logical. No evidence of psychosis. Reviewed daily check in sheet and pt reports /5 for SI and intent. This has been baseline since entering IOP. No significant change. Client Response/Progress/Benefit: [] Pt participated at times during the group discussions. Daily symptom tracker notes /5 for depression and 5 for self-harm urges. Able to identify mental health wins and healthy habits. He remained focused on completing 1-2 tasks a day. He states that even this is a struggle and he relies a great deal on opposite-action. ?I?m tired all the time?. ? I just want to nap?. Low energy and motivation with limited purpose. ? Depression is getting to me?. Limited progress noted. Benefits from group support, encouragement, and feedback. Will continue in IOP to prevent decompensation, provide support, and increase daily functioning. Narrative Note: []
--- NOTE | 2025-02-11 11:10 | BH.SGPN.GN ---
Behaviors/Verbalizations/Mental Status: []Pt alert and oriented, casually dressed and groomed. Eye contact good. Motor activity appropriate. Speech within normal limits. Affect congruent, mood content. Thoughts linear, logical, no signs of hallucinations or delusions. Client Response/Progress/Benefit: [] Pt responded well to session AEB taking notes and contributing to discussion throughout. Pt engaged as group continued discussion on distress tolerance and the mental health benefits of widening their overall Window of Tolerance. Pt engaged with group in experiential activity provided input on connections between variables in the activity and distress tolerance. Worked within small groups to identify strategies to increase distress tolerance and reduce hyper-arousal and hypo-arousal states. Identified wanting to begin implementing distress tolerance skills of: go for a walk, healthy distraction, and music. Pt appeared to benefit from gaining insight and learning strategies to increase distress tolerance. Pt will continue IOP tx to promote use of healthy coping skills, challenge negative perspective, and prevent decompensation. Narrative Note: []
--- NOTE | 2025-02-11 14:18 | BH.MDN ---
Multi-Disciplinary Note Note 30-min Individual: Time Started:: 10:20 Date: 02/11/25 Purpose of session/treatment goals addressed:: Discharge planning and discussion of maintenance. Eye Contact:: Fair Motor Activity:: Restless Appearance:: Disheveled Speech:: Appropriate Mood:: Depressed Affect:: Constricted Thoughts:: Linear, Logical and No evidence of hallucinations/delusions noted Staff Interventions:: thought challenging, motivational interviewing, CBT techniques, discharge planning and strengths perspective Client Response:: Pt responded well to session, open to meeting with therapist. Pt stated he did not have much to talk about today and it is pt's last day of IOP. Pt shared that getting out of the house was helpful and he found some benefit in group, but overall pt felt that he did not benefit too much from IOP as pt felt he never got his medication concerns addressed. Pt and therapist discussed things pt could do to promote mental health recovery. Pt reports he understands what he needs to do, such as go for walks and stay up with cleaning, but pt continues to struggle with internal motivation to follow through. Pt does report that when the weather is nice, pt does become more motivated and he is more likely to get outside. Pt also reminded about the up/down activities that were discussed in Behavioral Activation group and how pt can utilize this knowledge. Pt will follow up with his us customs and border officer as well as providers at [facility]. Risks/Concerns:: Pt denies any suicidal ideations, plan, or intent. Pt reports no use of substances. Progress Toward Goals/Plan:: Pt has responded well to treatment as evidenced by Pt consistently attending IOP sessions. Pt was engaged during group sessions and contributed to discussions. Pt struggled at times with using skills outside of IOP, but he did make positive changes with cleaning, cooking, and riding his bike. Pt also consistently reported not following through with personal goals he had during IOP. Pt?s overall symptom reduction is 14% since admission. Pt?s depression and anxiety did not decrease, but they did not worsen since admission. Pt?s anger decreased by 33% since admission and he reports symptoms of detachment and disconnection have decreased by 40% since admission. Pt will discharge from [facility] and follow up with [facility] for case management and individual therapy and he will continue to see Dr. Shay for medication management. Time Stopped:: 10:37
--- NOTE | 2025-02-11 14:18 | BH.MDN ---
Multi-Disciplinary Note Note 30-min Individual: Time Started:: 10:20 Date: 02/11/25 Purpose of session/treatment goals addressed:: Discharge planning and discussion of maintenance. Eye Contact:: Fair Motor Activity:: Restless Appearance:: Disheveled Speech:: Appropriate Mood:: Depressed Affect:: Constricted Thoughts:: Linear, Logical and No evidence of hallucinations/delusions noted Staff Interventions:: thought challenging, motivational interviewing, CBT techniques, discharge planning and strengths perspective Client Response:: Pt responded well to session, open to meeting with therapist. Pt stated he did not have much to talk about today and it is pt's last day of IOP. Pt shared that getting out of the house was helpful and he found some benefit in group, but overall pt felt that he did not benefit too much from IOP as pt felt he never got his medication concerns addressed. Pt and therapist discussed things pt could do to promote mental health recovery. Pt reports he understands what he needs to do, such as go for walks and stay up with cleaning, but pt continues to struggle with internal motivation to follow through. Pt does report that when the weather is nice, pt does become more motivated and he is more likely to get outside. Pt also reminded about the up/down activities that were discussed in Behavioral Activation group and how pt can utilize this knowledge. Pt will follow up with his wildlife conservation officer as well as providers at [facility]. Risks/Concerns:: Pt denies any suicidal ideations, plan, or intent. Pt reports no use of substances. Progress Toward Goals/Plan:: Pt has responded well to treatment as evidenced by Pt consistently attending IOP sessions. Pt was engaged during group sessions and contributed to discussions. Pt struggled at times with using skills outside of IOP, but he did make positive changes with cleaning, cooking, and riding his bike. Pt also consistently reported not following through with personal goals he had during IOP. Pt?s overall symptom reduction is 14% since admission. Pt?s depression and anxiety did not decrease, but they did not worsen since admission. Pt?s anger decreased by 33% since admission and he reports symptoms of detachment and disconnection have decreased by 40% since admission. Pt will discharge from [facility] and follow up with [facility] for case management and individual therapy and he will continue to see Dr. Shay for medication management. Time Stopped:: 10:37
--- NOTE | 2025-02-11 14:31 | BH.DS_ITS ---
Discharge Summary Demographics Date of Admission:: 12/31/24 Discharge Date: 02/13/25 Presenting Problems at Admission:: Pt is a 38-year-old male with a history of MDD with psychotic features, KATIE, and substance abuse history. Pt was referred to [facility] tx by a local residential substance abuse treatment center At admission to [facility], pt endorses a depressed mood with isolation, increased sleep, lack of motivation, and lack of energy, Pt was arrested in January of 2024 for physical a ssault and he is currently on probation. Pt has a history of emotional dysregulation and use of unhealthy coping skills to manage his mental health symptoms. Pt currently unable to function at his baseline. Discharge Diagnoses:: Major depressive disorder, recurrent, moderate; Anxiety disorder, NOS; Dextromethorphan use disorder (sober x 1 year); Cluster B traits (borderline and narcissistic) Reason for Discharge:: Pt has made progress in [facility] and reports maximum benefit from group sessions. Pt will transition to outpatient therapy. Treatment Progress During Treatment & Response: Pt has responded well to treatment as evidenced by Pt consistently attending [facility] sessions. Pt was engaged during group sessions and contributed to discussions. Pt struggled at times with using skills outside of [facility], but he did make positive changes with cleaning, cooking, and riding his bike. Pt?s overall symptom reduction is 14% since admission. Pt?s depression and anxiety did not decrease, but they did not worsen since admission. Pt?s anger decreased by 33% since admission and he reports symptoms of detachment and disconnection have decreased by 40% since admission. Pt will follow up with [facility] for case management and individual therapy and he will continue to see Dr. Shay for medication management. Issues Still to be Addressed:: Pt's symptoms of depression and anxiety did not decrease, so pt can continue to work on reducing those symptoms and improving his internal motivation. Pt also reports his levels of pain impact his mental health and could benefit from seeing a specialist. Pt can benefit from challenging his negative thought patterns, setting goals, and continuing to practice self-care. Discharge Recommendations/Instructions:: Pt will continue to see Dr. Shay for medication management through [facility]. Pt's last appointment was on 02/11/25. Pt plans to schedule outpatient counseling through [facility] as pt is established with case management services there. Pt was given information for a paint sprayer sandblaster, Dr. Arvizu, at [facility] per pt's request. Discharge Handout
--- NOTE | 2025-02-11 14:31 | BH.DS_ITS ---
Discharge Summary Demographics Date of Admission:: 12/31/24 Discharge Date: 02/13/25 Presenting Problems at Admission:: Pt is a 38-year-old male with a history of MDD with psychotic features, KATIE, and substance abuse history. Pt was referred to [facility] tx by a local residential substance abuse treatment center At admission to [facility], pt endorses a depressed mood with isolation, increased sleep, lack of motivation, and lack of energy, Pt was arrested in January of 2024 for physical a ssault and he is currently on probation. Pt has a history of emotional dysregulation and use of unhealthy coping skills to manage his mental health symptoms. Pt currently unable to function at his baseline. Discharge Diagnoses:: Major depressive disorder, recurrent, moderate; Anxiety disorder, NOS; Dextromethorphan use disorder (sober x 1 year); Cluster B traits (borderline and narcissistic) Reason for Discharge:: Pt has made progress in [facility] and reports maximum benefit from group sessions. Pt will transition to outpatient therapy. Treatment Progress During Treatment & Response: Pt has responded well to treatment as evidenced by Pt consistently attending [facility] sessions. Pt was engaged during group sessions and contributed to discussions. Pt struggled at times with using skills outside of [facility], but he did make positive changes with cleaning, cooking, and riding his bike. Pt?s overall symptom reduction is 14% since admission. Pt?s depression and anxiety did not decrease, but they did not worsen since admission. Pt?s anger decreased by 33% since admission and he reports symptoms of detachment and disconnection have decreased by 40% since admission. Pt will follow up with [facility] for case management and individual therapy and he will continue to see Dr. Shay for medication management. Issues Still to be Addressed:: Pt's symptoms of depression and anxiety did not decrease, so pt can continue to work on reducing those symptoms and improving his internal motivation. Pt also reports his levels of pain impact his mental health and could benefit from seeing a specialist. Pt can benefit from challenging his negative thought patterns, setting goals, and continuing to practice self-care. Discharge Recommendations/Instructions:: Pt will continue to see Dr. Shay for medication management through [facility]. Pt's last appointment was on 02/11/25. Pt plans to schedule outpatient counseling through [facility] as pt is established with case management services there. Pt was given information for a paint factory worker, Dr. Arvizu, at [facility] per pt's request. Discharge Handout
--- NOTE | 2025-02-11 14:31 | BH.AFTERPLAN ---
Aftercare Plan Demographics Treatment End Date:: 02/13/25 Psychiatrist:: Koki Castillo Psychiatrist Office #:: [id number] [facility]/IOP Therapist:: Jinny Lin Therapist Phone #:: [phone] Medications Home Medications cholecalciferol (vitamin D3) 25 mcg (1,000 unit) capsule 25 mcg PO DAILY 12/15/20 duloxetine 30 mg capsule,delayed release 30 mg PO QAM #30 caps 12/31/24 duloxetine 60 mg capsule,delayed release 60 mg PO QHS #30 caps 12/31/24 gabapentin 100 mg capsule 100 mg PO TID anxiety 30 days #90 caps 12/31/24 hydroxyzine pamoate 25 mg capsule 25 mg PO BID PRN anxiety #60 caps 12/31/24 olanzapine 5 mg tablet 5 mg PO QDAY #30 tabs 12/31/24 nortriptyline 25 mg capsule 25 mg PO QHS #30 caps 01/21/25 bupropion HCl 150 mg 24 hr tablet, extended release (Wellbutrin XL) 150 mg PO DAILY 30 days #30 tabs 01/28/25 Plan Details Progress/Aftercare Plan Details:: Wilian has responded well to treatment as evidenced by Wilian consistently attending IOP sessions. Wilian was engaged during group sessions and contributed to discussions. Wilian struggled at times with using skills outside of IOP, but he did make positive changes with cleaning, cooking, and riding his bike. Wilian?s overall symptom reduction is 14% since admission. Wilian?s depression and anxiety did not decrease, but they did not worsen since admission. Wilian?s anger decreased by 33% since admission and he reports symptoms of detachment and disconnection have decreased by 40% since admission. Wilian will follow up with [facility] for case management and individual therapy and he will continue to see Dr. Shay for medication management. Strategies for Success:: 1. Opposite action! Continue to break that cycle of anxiety, guilt, and depression by not letting emotions be the only drivers of your bus. 2. Remember that thoughts are thoughts NOT facts! You have power in if you give thoughts the time of day or not. 3. self-care! You deserve to take time for you and you also deserve to face the not so fun self-care like delegating tasks and advocating for yourself 4. Self-compassion! You are human and you will make a mistake?BUT that doesn?t mean you are a failure or not good enough. Remember there are no bad parts! 5. Continue to practice acceptance and internal locus of control! 6. Practice positive self-talk and keep track of your wins. 7. Remember progress isn?t linear! You may have a setback or bump in the road, but that doesn?t mean you?ve lost all progress. 8. self-reflection and self-awareness. 9. Be understanding with yourself and try to see the whole picture, not just the snapshot. 10. Live in the trejo!! Appointments Appointments/Referrals to Other Services:: 1. Dr. Shay for medication management. Last seen on 02/11/25. 2. Dr. Arvizu for pain management. Call to establish care. 3. [facility] for individual therapy and case management.
--- NOTE | 2025-02-11 14:31 | BH.AFTERPLAN ---
Aftercare Plan Demographics Treatment End Date:: 02/13/25 Psychiatrist:: Koki Castillo Psychiatrist Office #:: [phone] [facility]/IOP Therapist:: Jinny Lin Therapist Phone #:: [phone] Medications Home Medications cholecalciferol (vitamin D3) 25 mcg (1,000 unit) capsule 25 mcg PO DAILY 12/15/20 duloxetine 30 mg capsule,delayed release 30 mg PO QAM #30 caps 12/31/24 duloxetine 60 mg capsule,delayed release 60 mg PO QHS #30 caps 12/31/24 gabapentin 100 mg capsule 100 mg PO TID anxiety 30 days #90 caps 12/31/24 hydroxyzine pamoate 25 mg capsule 25 mg PO BID PRN anxiety #60 caps 12/31/24 olanzapine 5 mg tablet 5 mg PO QDAY #30 tabs 12/31/24 nortriptyline 25 mg capsule 25 mg PO QHS #30 caps 01/21/25 bupropion HCl 150 mg 24 hr tablet, extended release (Wellbutrin XL) 150 mg PO DAILY 30 days #30 tabs 01/28/25 Plan Details Progress/Aftercare Plan Details:: Wilian has responded well to treatment as evidenced by Wilian consistently attending IOP sessions. Wilian was engaged during group sessions and contributed to discussions. Wilian struggled at times with using skills outside of IOP, but he did make positive changes with cleaning, cooking, and riding his bike. Wilian?s overall symptom reduction is 14% since admission. Wilian?s depression and anxiety did not decrease, but they did not worsen since admission. Wilian?s anger decreased by 33% since admission and he reports symptoms of detachment and disconnection have decreased by 40% since admission. Wilian will follow up with [facility] for case management and individual therapy and he will continue to see Dr. Shay for medication management. Strategies for Success:: 1. Opposite action! Continue to break that cycle of anxiety, guilt, and depression by not letting emotions be the only drivers of your bus. 2. Remember that thoughts are thoughts NOT facts! You have power in if you give thoughts the time of day or not. 3. self-care! You deserve to take time for you and you also deserve to face the not so fun self-care like delegating tasks and advocating for yourself 4. Self-compassion! You are human and you will make a mistake?BUT that doesn?t mean you are a failure or not good enough. Remember there are no bad parts! 5. Continue to practice acceptance and internal locus of control! 6. Practice positive self-talk and keep track of your wins. 7. Remember progress isn?t linear! You may have a setback or bump in the road, but that doesn?t mean you?ve lost all progress. 8. self-reflection and self-awareness. 9. Be understanding with yourself and try to see the whole picture, not just the snapshot. 10. Live in the trejo!! Appointments Appointments/Referrals to Other Services:: 1. Dr. Shay for medication management. Last seen on 02/11/25. 2. Dr. Arvizu for pain management. Call to establish care. 3. [facility] for individual therapy and case management.
--- NOTE | 2025-02-13 09:00 | BH.SGPN.GN ---
Behaviors/Verbalizations/Mental Status: [] Eye contact is good. Motor activity is appropriate. Appearance is discheveled. Speech is Appropriate. Mood is dysthymic. Affect is congruent. Thoughts are linear and logical. No evidence of psychosis. Reviewed daily check in sheet and no reports of suicidal ideations or intent. Client Response/Progress/Benefit: [] Pt participated at times during the group discussions. Attentive. Daily symptom tracker notes 01/07 for depression. Shared with the group that today is his last day in [facility] as he is set to discharge successfully. He believes that the best thing for his mental health is to ?have little wins each day?. Wins could be completing tasks, exercising, or any accomplishment. It appears that this provides him with a sense of accomplishment which significantly improves his mental health. Main skill used is opposite-action. Proud and ?excited? that he completed IOP. ?Progress noted. Benefited from group support, encouragement, and feedback. Will be discharged from [facility] today. Narrative Note: []
--- NOTE | 2025-02-13 09:00 | BH.SGPN.GN ---
Behaviors/Verbalizations/Mental Status: [] Eye contact is good. Motor activity is appropriate. Appearance is discheveled. Speech is Appropriate. Mood is dysthymic. Affect is congruent. Thoughts are linear and logical. No evidence of psychosis. Reviewed daily check in sheet and no reports of suicidal ideations or intent. Client Response/Progress/Benefit: [] Pt participated at times during the group discussions. Attentive. Daily symptom tracker notes 01/07 for depression. Shared with the group that today is his last day in [facility] as he is set to discharge successfully. He believes that the best thing for his mental health is to ?have little wins each day?. Wins could be completing tasks, exercising, or any accomplishment. It appears that this provides him with a sense of accomplishment which significantly improves his mental health. Main skill used is opposite-action. Proud and ?excited? that he completed IOP. ?Progress noted. Benefited from group support, encouragement, and feedback. Will be discharged from [facility] today. Narrative Note: []
--- NOTE | 2025-02-13 10:05 | BH.SGPN.GN ---
Behaviors/Verbalizations/Mental Status: [] Client alert and oriented, casually dressed and groomed. Eye contact good. Motor activity appropriate. Speech within normal limits. Affect congruent, mood euthymic. Thoughts linear, logical, no signs of hallucinations or delusions. Client Response/Progress/Benefit: [] Client responded well to session AEB contributing to discussion, taking notes, and listening attentively to others. Group discussed the benefits of managed anger and anger as a secondary emotion. Client participated in anger iceberg discussion. Group reported outward personal signs of anger as shutting down, isolating, and yelling. Group Identified underlying emotions that contribute to anger including family, daily stress, disappointment, and trauma. Appeared to benefit from increased knowledge of the underlying emotions that impact anger and increased self-awareness of the internal and external consequences of anger. Client will be discharging today successfully from program. Narrative Note: []
--- NOTE | 2025-02-13 11:10 | BH.SGPN.GN ---
Behaviors/Verbalizations/Mental Status: [] client alert and oriented, neatly dressed and groomed. Eye contact good. Motor activity appropriate. Speech within normal limits. Affect congruent, mood euthymic. Thoughts linear, logical, no signs of hallucinations or delusions. Client Response/Progress/Benefit: [] Client was an engaged participant throughout group AEB client providing input throughout discussion. Client contributed to the continued discussion of how people express anger as well as the underlying emotions of anger. Client participated in group activity that highlighted strategies to cope with anger. Group brainstormed healthy coping skills to help prevent anger and cope with it in the moment which included: mindfulness, deep breathing, journaling, going outside, and music. Client identified skills to implement to help with anger as setting boundaries to prevent anger and seeing the humor in/making jokes to help manage anger in the moment. Client appeared to benefit from brainstorming with the group potential strategies to manage anger in healthy ways. Client will discharge program successfully today. Narrative Note: []
== END 2025-02-13 12:28 | disposition home or self-care (01) ==
LOC: BHIOP 07:08
PROVIDERS: PCP Internal Medicine; Referring Provider Psychiatry & Neurology Psychiatry; Visit Provider Psychiatry & Neurology Psychiatry
DX: F33.1 Major depressive disorder, recurrent, moderate (principal); F41.9 Anxiety disorder, unspecified; F19.91 Other psychoactive substance use, unspecified, in remission
CPT/HCPCS: H2012; H2020; S9480; 90832

== ENCOUNTER → 2025-03-18 | Outpatient (CLI) | payer MEDICAID, SELFPAY ==
[2025-03-18 14:30] LABS: Amphetamine Urine NEGATIVE (<1000 ng/mL); Barbiturate Urine NEGATIVE (< 200 ng/mL); Benzodiazepine Urine NEGATIVE (< 200 ng/mL); Buprenorphine Urine NEGATIVE (< 200 ng/mL); Cocaine Urine NEGATIVE (< 300 ng/mL); Fentanyl, Urine NEGATIVE; Methadone Urine NEGATIVE (< 300 ng/mL); Opiates Urine NEGATIVE (< 300 ng/mL); Oxycodone, Urine NEGATIVE (< 100 ng/mL); PCP Urine NEGATIVE (< 25 ng/mL); THC Urine NEGATIVE (< 50 ng/mL)
== END | disposition home or self-care (01) ==
LOC: LAB 12:34
PROVIDERS: PCP Internal Medicine; Referring Provider Anesthesiology; Visit Provider Anesthesiology
DX: M79.7 Fibromyalgia (principal); F11.20 Opioid dependence, uncomplicated
CPT/HCPCS: 80307

== ENCOUNTER 2025-06-27 02:04 | Emergency (ER) | payer MEDICAID, SELFPAY ==
[2025-06-27 02:07] VITALS: BP 154/102; PULSE 82; RESP 16; TEMP 37.1; O2SAT 97; BMI 31.6
--- NOTE | 2025-06-27 02:26 | EKG12_ITS ---
Test Reason : [facility] [facility] [place] Pressure : */* mmHG Vent. Rate : 80 BPM Atrial Rate : 80 BPM P-R Int : 144 ms QRS Dur : 80 ms QT Int : 378 ms P-R-T Axes : 49 26 53 degrees QTcB Int : 435 ms Normal sinus rhythm Normal ECG Confirmed by JASSON RODAS, LACHELLE ([id number]), editor managing newspaper [employer] [place] ([id number]) on 06/29/2025 1:01:30 PM Referred By: Confirmed By: LACHELLE SPAULDING MD
--- NOTE | 2025-06-27 02:48 | EX.ED.VIS.PS ---
HPI HPI - Psych History of Present Illness Chief Complaint: Suicidal Informant: patient Narrative Narrative: Patient is a 40-year-old male with history of bipolar disorder, depression, substance abuse and panic disorder presenting with auditory visual hallucinations as well as suicidal ideations. Patient states the hallucinations started a few weeks ago. He states he is hearing voices that are spiritual nature. They are say things like the world is going to end and the fabric of reality is going to collapse. When asked if what he is seeing he travels often does not answer this question despite prompting. He does report suicidal ideations with a plan. He takes some time to answer but ultimately states that he feels that is going to happen either way but probably through overdosing or bleeding himself out. He does not answer when asked if he had a prior attempt. He has had a prior psychiatric hospitalization at [facility] (is requesting not to go back there). States he lives with his mother. States he feels this was triggered by using cough medication. Denies any recent use. Denies any physical complaints at this time. Chart review shows that patient was seen by psychiatry on 06/17/2025?Wellbutrin was increased and he is also on duloxetine. Was stopped on olanzapine 2.5 mg Q at bedtime as it was not helpful. Does have a history of dextromethorphan abuse but per this note was in remission [facility] Medical History Dextromethorphan use disorder, moderate, in early remission Anxiety disorder, unspecified Substance use disorder Bipolar disorder, unspecified Major depressive disorder, recurrent, moderate Panic disorder Panic attacks Back pain Limb weakness Arthritis Home Medications ?Medication ?Instructions ?Recorded ?Last Taken ?Type cholecalciferol (vitamin D3) 25 25 mcg PO DAILY 12/15/20 Unknown History mcg (1,000 unit) capsule hydroxyzine pamoate 25 mg capsule 25 mg PO BID PRN anxiety #60 caps 12/31/24 Unknown Rx gabapentin 400 mg capsule 400 mg PO TID anxiety 30 days #90 04/15/25 Unknown Rx caps nortriptyline 25 mg capsule 25 mg PO QHS #30 caps 04/15/25 Unknown Rx bupropion HCl 300 mg 24 hr tablet, 300 mg PO DAILY 30 days #30 tabs 06/17/25 Unknown Rx extended release duloxetine 30 mg capsule,delayed 30 mg PO QAM #30 caps 06/17/25 Unknown Rx release duloxetine 60 mg capsule,delayed 60 mg PO QHS #30 caps 06/17/25 Unknown Rx release bupropion HCl 150 mg 24 hr tablet, 150 mg PO DAILY 06/27/25 Unknown History extended release ergocalciferol (vitamin D2) 1,250 1,250 mcg PO QWEEK 06/27/25 Unknown History mcg (50,000 unit) capsule (Vitamin D2) gabapentin 100 mg capsule 100 mg PO TID 06/27/25 Unknown History olanzapine 2.5 mg tablet 2.5 mg PO QHS 06/27/25 Unknown History Allergy/AdvReac Type Severity Reaction Status Date / Time No Known Allergies Allergy Verified 06/27/25 02:05 Family History Other Anxiety Depression Surgical History H/O eye surgery [place] teeth removed Social History household members: none Smoking Status: Current every day smoker tobacco type: e-cigarettes alcohol intake: never substance use type: former substance user ROS ROS ED Review of Systems ROS Unobtainable: due to mental condition EXAM Physical Exam Const Vital Signs: 06/27/25 02:07 06/27/25 03:38 Temperature 98.7 F Temperature Source Oral Pulse Rate 82 96 Respiratory Rate 16 18 Blood Pressure 154/102 H 146/99 H Blood Pressure Mean 119 114 Pulse Ox 97 99 Oxygen Delivery Method Room Air Room Air Positive well nourished and well developed General Appearance ED: well developed and NAD HEENT Reports moist mucous membranes Eyes EOMs intact bilaterally Eyes Narrative: Unequal and irregularly shaped pupils?patient states this is postsurgical, states he can still see. Intermittent nystagmus when patient stares off Neck supple Neck Narrative: Normal range of motion of the neck, no meningeal sign Resp normal respiratory effort and clear to auscultation bilaterally Cardio Rate: regular rate Rhythm: regular rhythm GI non-tender and non-distended Extremity normal to inspection General Extremety ED: Negative for edema General Extremity: Negative for edema Neuro Neuro Narrative: Ambulates with a steady gait. No focal neurologic deficits appreciated. Sensorium / Orientation: alert, oriented to person and oriented to place Motor Exam: muscle tone normal throughout Psych cooperative Appearance: disheveled Attitude: bizarre Activity / Motor Behavior: avoids eye contact Speech: delayed Mood & Affect: flat affect Thought Process: disorganized Thought Content: suicidality, delusion(s) Delusional Thought Content Details: Positive for paranoid and hallucination(s) Positive for auditory and visual Attention / Concentration: attention grossly impaired and concentration grossly impaired Memory / Cognition: memory grossly intact and cognition grossly intact Insight: limited Judgement: limited Skin Lesions: no lesions Rashes: no rashes MDM MDM MDM Narrative Medical decision making narrative: Patient is evaluated for worsening auditory visual hallucinations as well as suicidal ideations. Has no physical complaints. This could be psychosis associate with substance abuse which does have a history of versus manic episode. Patient is given a dose of Zyprexa in the emergency room for acute symptoms. Will obtain medical clearance and discuss with counseling center. Patient ordering home meds. Refuses Zyprexa in the emergency room. At this time is cooperative but does not require IM medication. Is medically cleared. Suspect patient will require inpatient psychiatric care for acute psychosis. Spoke with crisis. They agreed that he would benefit from an patient psychiatric evaluation. Paperclip is filed. Waiting on placement this time Lab Data Attestation: I reviewed the patient's lab results. Labs: Laboratory Results - last 24 hr 06/27/25 06/27/25 02:26 02:40 WBC 8.1 RBC 4.81 Hgb 14.8 Hct 43.4 MCV 90.2 MCH 30.8 MCHC 34.1 RDW Std Deviation 43.5 RDW Coeff of Ariste[place] 13.2 Plt Count 227 MPV 11.2 Immature Gran % (Auto) 0.200 Neut % (Auto) 78.3 H Lymph % (Auto) 16.4 L Ellis % (Auto) 4.3 Eos % (Auto) 0.4 Baso % (Auto) 0.4 Absolute Neuts (auto) 6.4 Absolute Lymphs (auto) 1.33 Nucleated RBC % 0 Sodium 139 Potassium 3.4 Chloride 102 Carbon Dioxide 24.1 Anion Gap 12 BUN 7 Creatinine 1.03 Estim Creat Clear Calc 118.76 Est GFR (MDRD) Non-Af 94 BUN/Creatinine Ratio 6.5 L Glucose 114 H Calcium 8.7 Total Bilirubin 0.62 AST 14 ALT 15 Alkaline Phosphatase 56 Total Protein 6.5 Albumin 4.2 Globulin 2.2 Albumin/Globulin Ratio 1.9 Urine Color Yellow Urine Clarity Cloudy Urine pH 7.0 Ur Specific [place] 1.015 Urine Protein 30 H Urine Glucose (UA) Normal Urine Ketones 5 H Urine Occult Blood Negative Urine Nitrite Negative Urine Bilirubin 1 H Urine Urobilinogen 8 H Ur Leukocyte Esterase 25 H Urine RBC 0 SEEN Urine WBC 0-5 SEEN Ur Squamous Epith Cells 0-5 SEEN Amorphous Sediment 3+ Urine Bacteria 2+ Urine Mucus 0 SEEN Urine Opiates Screen NEGATIVE U Buprenorphine Qual NEGATIVE Ur Oxycodone Screen NEGATIVE Urine Methadone Screen NEGATIVE Urine Fentanyl Screen NEGATIVE Ur Barbiturates Screen NEGATIVE Ur Phencyclidine Scrn NEGATIVE Ur Amphetamines Screen NEGATIVE U Benzodiazepines Scrn NEGATIVE Urine Cocaine Screen NEGATIVE U Cannabinoids Screen NEGATIVE Ethyl Alcohol < 10.1 Rhythm Strip Rhythm Strip: Sinus Rhythm Rate: 80 Ectopy: None EKG Initial EKG: Attestation: I personally reviewed and interpreted this EKG as follows: Interpretation: Sinus Rhythm Comments: Normal sinus rhythm at a rate of 80 bpm Normal axis Normal intervals Normal ST segments Management Discussion w/another healthcare provider: Behavioral health Discharge Plan Triage Chief Complaint: Suicidal ED Provider: Aleja Rodas Dx/Rx/DC Orders Clinical Impression: Acute psychosis, Auditory hallucinations, Hallucination, visual, Depression with suicidal ideation Prescriptions: No Action hydroxyzine pamoate 25 mg capsule 25 mg PO BID PRN (Reason: anxiety) Qty: 60 2RF nortriptyline 25 mg capsule 25 mg PO QHS Qty: 30 2RF gabapentin 400 mg capsule 400 mg PO TID 30 Days Qty: 90 1RF bupropion HCl 300 mg tablet extended release 24 hr 300 mg PO DAILY 30 Days Qty: 30 2RF duloxetine 60 mg capsule,delayed release(DR/EC) 60 mg PO QHS Qty: 30 2RF duloxetine 30 mg capsule,delayed release(DR/EC) 30 mg PO QAM Qty: 30 2RF cholecalciferol (vitamin D3) 25 MCG capsule 25 mcg PO DAILY olanzapine 2.5 mg tablet 2.5 mg PO QHS gabapentin 100 mg capsule 100 mg PO TID ergocalciferol (vitamin D2) [Vitamin D2] 1,250 mcg (50,000 unit) capsule 1,250 mcg PO QWEEK bupropion HCl 150 mg tablet extended release 24 hr 150 mg PO DAILY Primary Care Provider: Jm Ty Referrals: Jm Ty MD [Primary Care Provider] - Print Language: Italian
[2025-06-27 02:53] LABS: Hematocrit 43.4 % (40-54); Hemoglobin 14.8 g/dL (13.0-16.5); Immature Granulocytes Count 0.020 X10^3/uL (0.0-0.0); Mean Corp Hgb Conc 34.1 g/dL (32-36); Mean Corpuscular Volume 90.2 fL (80-94); Mean Platelet Vol. 11.2 fl (6.2-12.0); NRBC Flagged by Analyzer 0 % (0-5); Platelet Count 227 K/mm3 (150-450); RBC Distribution Width CV 13.2 % (11.6-14.6); RBC Distribution Width SD 43.5 fl (35.1-43.9); Red Blood Count 4.81 M/mm3 (4.6-6.2); White Blood Count 8.1 K/mm3 (4.4-11.0)
[2025-06-27 02:54] LABS: Mucous, Urine 0 SEEN /hpf (<or=2+); Red Blood Cells-Urine 0 SEEN /hpf (0-5)
[2025-06-27 02:56] LABS: Color, Urine Yellow (Yellow); Glucose, Dipstick Normal (Normal); Ketone-Dipstick 5 mg/dl (Negative); Leukocyte Esterase-Dipstick 25 /ul (Negative); Nitrite-Dipstick Negative (Negative); Occult Blood-Urine Negative /ul (Negative); Protein-Dipstick 30 mg/dl (Negative); Specific Gravity, Urine 1.015 (1.002-1.030)
--- OUTSIDE RECORDS SUMMARY | 2025-06-27 03:25 | XMS RPT_ITS | CCD ---
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 Name Role Phone Mani Hansonravadan P Unavailable Unavailabl e Josee Hansondan P Unavailable Unavailabl e Buchanan, Dave K Unavailable Unavailable Buchanan, Dave K Unavailable Unavailable Buchanan, Dave K Unavailable Unavailable Buchanan, Dave K Unavailable Unavailable Karson RODAS, Jm Morrow Primary Care Provider Karson RODAS, Jm Morrow Primary Care Provider [phone] Karson RODAS, Jm Morrow Primary Care Provider Karson RODAS, Jm Morrow Primary Care Provider [phone] Froy AUGUSTINE.FACILITY MAINTENANCE HELPER, Whitley M Unavailable JM TY Referring Unavailable KARSON, JM Morrow Primary Care Unavailable JM TY Attending Unavailable KARSON, JM Morrow Primary Care Unavailable JM TY Attending Unavailable JM TY Primary Care Unavailable Koki Castillo Attending Unavailable Ty, Jm Primary Care Unavailable Koki Castillo Referring Unavailable Ty, Jm Primary Care Unavailable Koki Castillo Attending Unavailable Koki Castillo Referring Unavailable Ty, Jm Primary Care Unavailable Monico Shay Attending Unavailable Monico Shay Attending Unavailable Ty, Jm Primary Care Unavailable Ty, Jm Primary Care Unavailable Monico Shay Attending Unavailable Ty, Jm Primary Care Unavailable Monico Shay Attending Unavailable Koki Castillo Attending Unavailable Karson, Jm Primary Care Unavailable Koki Castillo Referring Unavailable Mark Arvizu Attending Unavailable Mark Arvizu Referring Unavailable Jm Ty Primary Care Unavailable Medications Current Medications Medication Drug Class(es) Dates Sig (Normalized) Sig (Original) 24 hr buPROPion hydrochloride 150 mg extended release oral tablet (4 sources) Aminoketone Start: 03-04-2025 take 1 tablet by mouth once daily buPROPion XL (WELLBUTRIN XL) 150 mg 24 hr tablet Take 1 tablet by mouth once daily. Dr. Shay. 03/04/2025 Active DULoxetine 30 mg delayed release oral capsule (20 sources) Serotonin and Norepinephrine Reuptake Inhibitor Start: 10-22-2024 End: 12-22-2024 take 1 capsule by mouth once daily in the morning DULoxetine (CYMBALTA) 30 mg capsule Indications: Recurrent major depression in partial remission Take 1 capsule by mouth every morning. 90 capsule 12/22/2024 Active Start: 10-22-2024 End: 12-22-2024 take 1 capsule by mouth once daily at bedtime DULoxetine (CYMBALTA) 60 mg capsule Indications: Recurrent major depression in partial remission Take 1 capsule by mouth daily at bedtime. 90 capsule 12/22/2024 Active ergocalciferol 1.25 mg oral capsule (20 sources) Provitamin D2 Compound Start: 12-05-2023 End: 03-18-2025 take 1 capsule by mouth every week ergocalciferol 50,000 unit capsule (VITAMIN D2, DRISDOL) Indications: Vitamin D deficiency Take 1 capsule by mouth one time a week. 12 capsule 1 03/18/2025 Active Start: 08-04-2023 take 1 capsule by mo ut every week ergocalciferol 50,000 unit capsule (VITAMIN D2, DRISDOL) Indications: Vitamin D deficiency Take 1 capsule by mouth one time a week. 12 capsule 0 08/04/2023 Active Start: 01-04-2022 End: 07-31-2023 take 1 capsule by mouth every week ergocalciferol 50,000 unit capsule (VITAMIN D2, DRISDOL) Indications: Vitamin D deficiency Take 1 capsule by mouth one time a week. 12 capsule 0 05/09/2023 07/31/2023 Discontinued Comment on above: Take 1 capsule by mo uth one time a week. gabapentin 100 mg oral capsule (20 sources) Anti-epileptic Agent Start: 03-04-2025 End: 03-04-2025 gabapentin (NEURONTIN) 100 mg capsule Take 1 capsule by mouth three times a day. Per Dr. Monico Shay. 03/04/2025 Active Start: 05-25-2023 End: 06-04-2024 take 1 capsule by mouth four times daily gabapentin (NEURONTIN) 400 mg capsule Indications: Generalized anxiety disorder Take 1 capsule by mouth four times daily for 90 days. 120 capsule 2 11/26/2023 06/04/2024 Discontinued (.All criteria met for discontinuation) Start: 03-29-2023 take 1 capsule by mo uth four times daily gabapentin (NEURONTIN) 400 mg capsule Take 1 capsule by mouth four times daily for 30 days. 120 capsule 3 03/29/2023 Active Start: 01-18-2023 End: 02-17-2023 take 1 capsule by mouth four times daily gabapentin (NEURONTIN) 400 mg capsule TAKE 1 CAPSULE BY MOUTH FOUR TIMES A DAY 120 capsule 2 01/18/2023 Active Start: 11-07-2022 End: 12-07-2022 take 1 capsule by mouth four times daily gabapentin (NEURONTIN) 400 mg capsule Take 1 capsule by mouth four times daily for 30 days. 120 capsule 2 11/07/2022 Active Start: 09-04-2022 End: 11-07-2022 take 1 capsule by mouth three times daily gabapentin (NEURONTIN) 400 mg capsule Take 1 capsule by mouth three times daily for 30 days. 90 capsule 2 09/04/2022 11/07/2022 Discontinued Start: 08-24-2022 End: 09-23-2022 take 1 capsule by mouth four times daily gabapentin (NEURONTIN) 400 mg capsule TAKE 1 CAPSULE BY MOUTH FOUR TIMES A DAY 120 capsule 1 08/24/2022 09/04/2022 Discontinued (Course of therapy completed) Start: 11-21-2021 End: 08-12-2022 take 1 capsule by mouth four times daily gabapentin (NEURONTIN) 400 mg capsule Take 1 capsule by mouth four times daily for 30 days. 120 capsule 1 07/13/2022 08/12/2022 Active Comment on above: TAKE 1 CAPSULE BY MO UTH FOUR TIMES A DAY Take 1 capsule by mo uth four times daily for 60 days. Take 1 capsule by mo uth four times daily for 30 days. Take 1 capsule by mo uth three times daily for 30 days. Take 1 capsule by mo [facility] four times daily for 90 days. hydrOXYzine pamoate 25 mg oral capsule (11 sources) Antihistamine Start: 10-22-20 End: 12-22-19 take 1 capsule by mouth three times daily as needed hydrOXYzine pamoate (VISTARIL) 25 mg capsule Indications: Generalized anxiety disorder Take 1 capsule by mouth three times a day as needed. 270 capsule 1 12/22/2024 Active nortriptyline 25 mg oral capsule (11 sources) Tricyclic Antidepressant Start: 10-30-20 End: 12-22-19 take 1 capsule by mouth once daily at bedtime nortriptyline (PAMELOR) 25 mg capsule Indications: Recurrent major depression in partial remission Take 1 capsule by mouth daily at bedtime. 90 capsule 12/22/2024 Active OLANZapine 5 mg oral tablet (11 sources) Atypical Antipsychotic Start: 10-22-20 End: 12-25-19 take 1 tablet by mouth once OLANZapine (ZYPREXA) 5 mg tablet Indications: Borderline personality disorder (HCC) Take 1 tablet by mouth every afternoon. 90 tablet 12/25/2024 Active Completed/Discontinued Medications Medication Drug Class(es) Dates Sig [...] 2 05/25/2023 08/28/2023 Discontinued (Discontinued by Patient) Start: 03-29-2023 take 1 tablet by reese th once daily desvenlafaxine ER (PRISTIQ) 25 mg 24 hr tablet Take 1 tablet by mouth once daily. 30 tablet 3 03/29/2023 Active Comment on above: Take 1 tablet by reese th once daily. FLUoxetine 20 mg oral capsule (13 sources) Serotonin Reuptake Inhibitor Start: 3 End: 3 take 1 capsule by mouth once daily FLUoxetine (PROZAC) 20 mg capsule Take 1 capsule by mouth once daily. 30 capsule 1 02/13/2023 03/14/2023 Discontinued Start: 06-01-2022 End: 07-01-2022 take 1 capsule by mouth once daily FLUoxetine (PROZAC) 20 mg capsule Take 1 capsule by mouth once daily. 30 capsule 1 06/01/2022 06/22/2022 Discontinued (Course of therapy completed) Comment on above: Take 1 capsule by mo uth once daily. TAKE 1 CAPSULE BY MO UTH DAILY lamoTRIgine 100 mg oral tablet (20 sources) Mood Stabilizer, Anti-epileptic Agent Start: 07-13-2022 End: 10-11-2022 take 1 tablet by mouth once daily lamoTRIgine (LAMICTAL) 100 mg tablet Take 1 tablet by mouth once daily. 30 tablet 2 07/13/2022 09/04/2022 Discontinued (Lack of Efficacy) Start: 01-06-2022 End: 09-20-2022 take 1 tablet by mouth once daily lamoTRIgine (LAMICTAL) 200 mg tablet Take 1 tablet by mouth once daily. 30 tablet 2 06/22/2022 07/13/2022 Discontinued Comment on above: Take 1 tablet by reese th once daily. TAKE 1 TABLET BY REESE TH DAILY LORazepam 0.5 mg oral tablet (20 sources) Benzodiazepine Start: End: take 1 tablet by mouth once daily as needed LORazepam (ATIVAN) 0.5 mg Indications: Generalized anxiety disorder TAKE 1 TABLET BY MOUTH DAILY NEEDED FOR UP TO 30 DAYS 30 tablet 2 05/25/2023 07/27/2023 Discontinued (Other) Start: 03-29-2023 take 1 tablet by reese th once daily as needed LORazepam (ATIVAN) 0.5 mg Indications: Generalized anxiety disorder TAKE 1 TABLET BY MOUTH DAILY NEEDED FOR UP TO 30 DAYS 30 tablet 3 03/29/2023 Active Start: 01-18-2023 End: 03-23-2023 take 1 tablet by mouth once daily as needed LORazepam (ATIVAN) 0.5 mg Indications: Generalized anxiety disorder TAKE 1 TABLET BY MOUTH DAILY NEEDED FOR UP TO 30 DAYS 30 tablet 0 02/21/2023 03/23/2023 Active Start: 06-07-2022 End: 01-10-2023 take 1 tablet by mouth once daily as needed LORazepam (ATIVAN) 0.5 mg Indications: Generalized anxiety disorder Take 1 tablet by mouth once daily as needed for up to 30 days. 30 tablet 0 12/11/2022 01/10/2023 Active Start: 06-04-2022 End: 06-05-2022 take 1 tablet by mouth every eight hours LORazepam (ATIVAN) 0.5 mg Indications: Generalized anxiety disorder Take 1 tablet by mouth every 8 hours for 2 doses. 2 tablet 0 06/04/2022 06/05/2022 Active Start: 09-20-2021 End: 06-13-2022 take 0.5 tablet by mouth every eight hours as needed LORazepam (ATIVAN) 1 mg tablet Indications: Generalized anxiety disorder Take 0.5 tablets by mouth every 8 hours as needed (panic attacks) for up to 90 days. #20/month. Do not start before March 15, 2022. 20 tablet 2 03/15/2022 06/13/2022 Active Comment on above: Take 0.5 tablets by mouth every 8 hours as needed (panic attacks) for up to 90 days. #20/month. Do not start before December 18, 2021. Take 0.5 tablets by mouth every 8 hours as needed (panic attacks) for up to 90 days. #20/month. Take 0.5 tablets by mouth every 8 hours as needed (panic attacks) for up to 90 days. #20/month. Do not start before March 15, 2022. Take 1 tablet by reese th every 8 hours for 2 doses. Take 1 tablet by reese th once daily as needed for up to 30 days. TAKE 1 TABLET BY REESE TH DAILY NEEDED FOR UP TO 30 DAYS nicotine 2 mg chewing gum (7 sources) Cholinergic Nicotinic Agonist Start: 11-03-20 24 End: 03-04-20 25 take 1 dose by mouth every two hours as needed nicotine polacrilex (NICORETTE) 2 mg gum Indications: Tobacco use disorder Take 1 Each by mouth every 2 hours as needed. 100 Each 12/22/2024 03/04/2025 Discontinued 24 hr venlafaxine 75 mg extended release oral capsule (20 sources) Serotonin and Norepinephrine Reuptake Inhibitor Start: 01-19-20 23 take 1 capsule by mouth once daily venlafaxine ER (EFFEXOR XR) 75 mg 24 hr capsule TAKE 1 CAPSULE BY MOUTH DAILY 30 capsule 2 01/18/2023 Active Start: 06-01-2022 End: 12-07-2022 take 1 capsule by mouth once daily venlafaxine ER (EFFEXOR XR) 75 mg 24 hr capsule Take 1 capsule by mouth once daily. 30 capsule 2 11/07/2022 Active Start: 04-14-2022 End: 05-31-2022 take 1 capsule by mouth once daily venlafaxine ER (EFFEXOR XR) 150 mg 24 hr capsule TAKE 1 CAPSULE BY MOUTH DAILY 30 capsule 1 05/31/2022 Active Start: 02-10-2022 End: 06-05-2022 take 1 capsule by mouth once daily at breakfast venlafaxine ER (EFFEXOR XR) 37.5 mg 24 hr capsule Take 1 capsule by mouth daily with breakfast. Take with 75 mg dose. 30 capsule 2 03/07/2022 04/14/2022 Discontinued (Course of therapy completed) Start: 01-06-2022 End: 04-14-2022 take 1 capsule by mouth once daily at breakfast venlafaxine ER (EFFEXOR XR) 75 mg 24 hr capsule Take 1 capsule by mouth daily with breakfast. Take with 37.5 mg dose 30 capsule 2 03/07/2022 04/14/2022 Discontinued (Course of therapy completed) Comment on above: Take 1 capsule by mo uth daily with breakfast. Take 1 capsule by mo uth daily with breakfast. Take with 75 mg dose. Take 1 capsule by mo uth daily with breakfast. Take with 37.5 mg dose Take 1 capsule by mo uth once daily. TAKE 1 CAPSULE BY MO UTH DAILY Take 1 capsule by mo uth once daily for 4 days. Problems Active Problems Problem Classification Problem Date Documented Da te Episodic/Chronic Anxiety disorders (20 sources) Generalized anxiety disorder; Translations: [Generalized anxiety disorder] Onset: 07-18-2018 12-10-2020 Chronic Malaise and fatigue (3 sources) Fatigue; Translations: [Other fatigue] Onset: 03-04-2025 03-04-2025 Episodic Mood disorders (20 sources) Recurrent major depression in partial remission; Translations: [Major depressive disorder, recurrent, in partial remission] Onset: 03-24-2016 12-10-2020 Chronic Nutritional deficiencies (20 sources) Vitamin D deficiency; Translations: [Vitamin D deficiency, unspecified] Onset: 03-19-2018 03-19-2018 Chronic Other connective tissue disease (1 source) Fibromyalgia; Translations: [Fibromyalgia] Onset: 03-21-2025 Episodic Other lower respiratory disease (2 sources) Snoring; Translations: [Snoring] 03-04-2025 Episodic Other lower respiratory disease (1 source) Snoring; Translations: [Snoring] Onset: 03-04-2025 Episodic Other nutritional; endocrine; and metabolic disorders (20 sources) Obese class I; Translations: [Obesity, unspecified] Onset: 07-18-2018 Resolved: 12-04-2019 06-19-2022 Chronic Other upper respiratory infections (1 source) Viral upper respiratory tract infection; Translations: [Acute upper respiratory infection, unspecified] Episodic Personality disorders (20 sources) Borderline personality disorder; Translations: [Borderline personality disorder] Onset: 10-10-2021 10-10-2021 Chronic Substance-related disorders (20 sources) Tobacco user; Translations: [Nicotine dependence, unspecified, uncomplicated] Onset: 01-21-2016 10-31-2021 Chronic Substance-related disorders (1 source) Other psychoactive substance use, unspecified, uncomplicated; Translations: [Other psychoactive substance use, unspecified, uncomplicated] Onset: 05-28-2025 Episodic Unclassified (2 sources) APPOINTMENT CANCELLED Unclassified (2 sources) NO SHOW Past or Other Problems Problem Classification Problem Date Documented Da te Episodic/Chronic Complication of device; implant or graft (20 sources) Dislocated intraocular lens; Translations: [Displacement of intraocular lens, initial encounter] Onset: 03-13-2017 03-13-2017 Episodic Other nutritional; endocrine; and metabolic disorders (20 sources) Obese class II; Translations: [Obesity, unspecified] Onset: 12-04-2019 Resolved: 06-19-2022 12-04-2019 Chronic Other nutritional; endocrine; and metabolic disorders (12 sources) Abnormal weight gain; Translations: [Abnormal weight gain] Onset: 01-21-2016 Resolved: 07-18-2018 10-31-2021 Episodic Results Test Name Value Interpretation Reference Range Facility MR/Bishnu 06-17-2025 MR/BMS.BP [address], [address] [place] [address] OFFICE VISIT Date of Service: 06/17/25 MR#: [id number] Acct: [id number] Name: DONIS FERRER Rep #: [id number] : 1985 Provider: Dr. Monico Wong se, DO Age/Sex: 40/M Location: [facility].BP Status: Signed Intake Vital Signs 04/15/25 10:45 06/17/25 10:07 Height 6 ft 6 ft Weight: 258 lb 252 lb BMI 34.9 34.2 BP 130/84 H 124/88 H Blood Pressure Location Lt brachial Lt brachial Position Sitting Sitting Respiration 16 16 Pulse 108 H 112 H Pulse Source Monitor Monitor BP Intake Visit Reasons: 2 M FU Accompanied by: Self Allergies No Known Allergies Allergy (Verified 06/17/25 10:11) Medications ???Medication ???Instructions ???Recorded ???Confirmed ???Type cholecalciferol (vitamin D3) 25 25 mcg PO DAILY 12/15/20 06/17/25 History mcg (1,000 unit) capsule hydroxyzine pamoate 25 mg capsule 25 mg PO BID PRN anxiety #60 caps 12/31/24 06/17/25 Rx gabapentin 400 mg capsule 400 mg PO TID anxiety 30 days #90 04/15/25 06/17/25 Rx caps nortriptyline 25 mg capsule 25 mg PO QHS #30 caps 04/15/25 Rx bupropion HCl 300 mg 24 hr tablet, 300 mg PO DAILY 30 days #30 tabs 06/17/25 06/17/25 Rx extended release duloxetine 30 mg capsule,delayed 30 mg PO QAM #30 caps 06/17/25 Rx release duloxetine 60 mg capsule,delayed 60 mg PO QHS #30 caps 06/17/25 Rx release PFSH Medical History (Updated 01/07/25 @ 14:02 by Katarina Chow) Dextromethorphan use disorder, moderate, in early remission Anxiety disorder, unspecified Substance use disorder Bipolar disorder, unspecified Major depressive disorder, recurrent, moderate Panic disorder Panic attacks Back pain Limb weakness Arthritis Surgical History H/O eye surgery Mobile teeth removed Family History Other Anxiety Depression Social History (Updated 12/31/24 @ 10:04 by Radha Simpson) household members: none Smoking Status: Current every day smoker tobacco type: e-cigarettes alcohol intake: never substance use type: former substance user HPI History of Present Illness History provided by: patient HPI: Donis Ferrer is a 40 year old male who presents today for follow up evaluation. Patient reports that he has been feeling like he can't enjoy things like he used to. Makes comments that medications have not been very effective. Did notice some mild benefit with wellbutrin but effect has been marginal. Does feel like he gets down much of the time. Does have low energy and low drive.Continues to take gabapentin for pain. Sleep is generally pretty good. [facility] and things have been going well. Denies any thoughts of suicide at this time. Appetite has been ok. Has been dissociating intermittently, elaborates some symptoms of derealization. No specific timing for when this is happening. Denies SI/HI or AVH. Review of Systems Constitutional Reports: change in weight and fatigue; Denies: fever(s) or chills Eyes Denies: change in vision or blurry vision Ears, Nose, Mouth, Throat Denies: throat pain, neck pain or change in hearing Cardiovascular Denies: chest pain, palpitations or dyspnea Respiratory Denies: dyspnea, cough or wheezing Gastrointestinal Denies: abdominal pain, nausea, vomiting, diarrhea or constipation Genitourinary Denies: dysuria or urinary frequency Musculoskeletal Reports: extremity pain (general achiness); Denies: back pain, neck pain, joint pain or muscle weakness Integumentary/Breast Denies: rash or new lesions Neurological Denies: headache(s), dizziness or confusion Endocrine Reports: fatigue; Denies: excessive sweating Hematologic/Lymphatic Denies: easy bruising or easy bleeding Allergic/Immunologic Denies: wheezing Exam Mental Status Exam - Psych Appearance unkempt Attitude other (Somewhat irritable) Activity/Motor Behavior MSE activity/motor behavior finding no adventitious movements Speech regular rate, regular volume and regular prosody Mood depressed Affect constricted Thought Process linear, logical and coherent Thought Content no delusions and no hallucinations Suicidal Ideation none Homicidal Ideation none Attention intact Concentration intact Sensorium/Orientation awake, alert and oriented x3 Memory/Cognition other (appropriate for stated age) Insight fair Judgement fair Assessment Plan Assessment Plan (1) Generalized anxiety disorder with panic attacks: Plan: - Will discontinue olanzapine secondary to limited clinical benefit ??? Could consider reduction in duloxeti (more content not included)... Normal [facility] MR/BMS.BPon 04-15-2025 MR/BMS.BP [facility] [address], [address] [place] [address] OFFICE VISIT Date of Service: 04/15/25 MR#: [id number] Acct: [id number] Name: DONIS FERRER Rep #: [id number] : 1985 Provider: Dr. Monico Wong se, DO Age/Sex: 39/M Location: [facility].BP Status: Signed Intake Vital Signs 02/11/25 11:05 04/15/25 10:45 Height 6 ft 6 ft Weight: 254 lb 258 lb BMI 34.4 34.9 BP 117/82 H 130/84 H Blood Pressure Location Lt brachial Lt brachial Position Sitting Sitting Respiration 16 16 Pulse 109 H 108 H Pulse Source Monitor Monitor BP Intake Visit Reasons: 2mfu Accompanied by: Self Allergies No Known Allergies Allergy (Verified 04/15/25 10:49) Medications ???Medication ???Instructions ???Recorded ???Confirmed ???Type cholecalciferol (vitamin D3) 25 25 mcg PO DAILY 12/15/20 04/15/25 History mcg (1,000 unit) capsule hydroxyzine pamoate 25 mg capsule 25 mg PO BID PRN anxiety #60 caps 12/31/24 04/15/25 Rx bupropion HCl 150 mg 24 hr tablet, 150 mg PO DAILY 30 days #30 tabs 04/15/25 04/15/25 Rx extended release (Wellbutrin XL) duloxetine 30 mg capsule,delayed 30 mg PO QAM #30 caps 04/15/2509/29 Rx release duloxetine 60 mg capsule,delayed 60 mg PO QHS #30 caps 04/15/2509/29 Rx release gabapentin 400 mg capsule 400 mg PO TID anxiety 30 days #90 04/15/25 04/15/25 Rx caps nortriptyline 25 mg capsule 25 mg PO QHS #30 caps 04/15/2509/29 Rx olanzapine 2.5 mg tablet 2.5 mg PO QDAY #30 tabs 04/15/25 0 04/15/25 Rx PFSH Medical History (Updated 01/07/25 @ 14:02 by Katarina Chow) Dextromethorphan use disorder, moderate, in early remission Anxiety disorder, unspecified Substance use disorder Bipolar disorder, unspecified Major depressive disorder, recurrent, moderate Panic disorder Panic attacks Back pain Limb weakness Arthritis Surgical History H/O eye surgery Mobile teeth removed Family History Other Anxiety Depression Social History (Updated 12/31/24 @ 10:04 by Radha Simpson) household members: none Smoking Status: Current every day smoker tobacco type: e-cigarettes alcohol intake: never substance use type: former substance user HPI History of Present Illness History provided by: patient HPI: Donis Ferrer is a 39 year old male who presents today for follow up evaluation. Patient reports that he has been ok. Has been a little more active but not as much as he would hope to be. Describes some limited motivation. Wishes he was exercising more or doing more around the house. Describes some mild depression. Feels like wellbutrin has been a little helpful at this time. Is interested in trying to reduce medication burden. Sleep has been up and down. Has been gaining weight, and is unsure if duloxetine or olanzapine. Has been vaping, and has probably reduced how much he is using. Just established with [facility]. Admits to having passive thoughts of suicide, but is easily able to ignore and has no intent or plan. Denies AVH. Review of Systems Constitutional Reports: change in weight and fatigue; Denies: fever(s) or chills Eyes Denies: change in vision or blurry vision Ears, Nose, Mouth, Throat Denies: throat pain, neck pain or change in hearing Cardiovascular Denies: chest pain, palpitations or dyspnea Respiratory Denies: dyspnea, cough or wheezing Gastrointestinal Denies: abdominal pain, nausea, vomiting, diarrhea or constipation Genitourinary Denies: dysuria or urinary frequency Musculoskeletal Reports: extremity pain (general achiness); Denies: back pain, neck pain, joint pain or muscle weakness Integumentary/Breast Denies: rash or new lesions Neurological Denies: headache(s), dizziness or confusion Endocrine Reports: fatigue; Denies: excessive sweating Hematologic/Lymphatic Denies: easy bruising or easy bleeding Allergic/Immunologic Denies: wheezing Exam Mental Status Exam - Psych Appearance unkempt Attitude calm Activity/Motor Behavior MSE activity/motor behavior finding no adventitious movements Speech regular rate, regular volume and regular prosody Mood OK Affect constricted Thought Process linear, logical and coherent Thought Content no delusions and no hallucinations Suicidal Ideation none Homicidal Ideation none Attention intact Concentration intact Sensorium/Orientation awake, alert and oriented x3 Memory/Cognition other (appropriate for stated age) Insight fair Judgement fair Assessment Plan Assessment Plan (1) Generalized anxiety disorder with panic attacks: Plan: - Continues to feel tired throughout (more content not included)... Normal [facility] [id number] 03-21-2025 [facility] Misc. COMMENT Normal . [facility] Comment on above: Order Comment: [id number] PAIN MANAGMENT Result Comment: Test Ordered: [id number] Amphetamines Screen, Urine Negative ng/mL UI Reference Range: [id number] Amphetamine test includes Amphetamine and Methamphetamine. Barbiturates Negative ng/mL UI Reference Range: Devaus=755 Benzodiazepines Negative ng/mL UI Reference Range: [id number] Cocaine (Metab.), Urine Negative ng/mL UI Reference Range: Tfevbh=325 Opiates Negative ng/mL UI Reference Range: Lxmdgm=751 Opiate test includes Codeine, Morphine, Hydromorphone, Hydrocodone. 6-Acetylmorphine, Urine Negative ng/mL UI Reference Range: Cutoff=10 Oxycodone/Oxymorphone, Urine Negative ng/mL UI Reference Range: Luahgy=945 Test includes Oxycodone and Oxymorphone PCP, Urine Negative ng/mL UI Reference Range: Cutoff=25 Methadone Screen, Urine Negative ng/mL UI Reference Range: Naibla=250 Propoxyphene, Urine Negative ng/mL UI Reference Range: Bhtjcu=225 Fentanyl, Urine Negative ng/mL UI Reference Range: Cutoff=2.0 Test includes Fentanyl and Norfentanyl This test was developed and its performance characteristics determined by [facility]. It has not been cleared or approved by the Food and Drug Administration. Tramadol Negative ng/mL UI Reference Range: Avhyvp=255 Buprenorphine, Urine Negative ng/mL UI Reference Range: Cutoff=10 Creatinine, Urine 105.6 mg/dL UI Reference Range: 20.0-300.0 pH, Urine 6.3 UI Reference Range: 4.5-8.9 Performed at: - [facility] [address] [place], [place] [id number] Meeting Facilitator: Rhett Paz PhD, Phone: [phone] Performed at: [facility] [address] [id number] Meeting Facilitator: Oscar Abel PhD, Phone: [phone] Performed By: #### L 505.5000, L3410.9992 #### [facility] [address] [place], [address] Urine Drug Screen (VISTA)on 03-18-2025 AMPHETAMINES Negative Normal <1000 ng/mL [facility] Comment on above: Order Comment: PAIN MANAGMENT MEDTOX Performed By: #### L 505.5000, L3410.9992 #### [facility] [address] [place], [address] BARBITIURATES Negative Normal < 200 ng/mL [facility] Comment on above: Order Comment: PAIN MANAGMENT MEDTOX Performed By: #### L 505.5000, L3410.9992 #### [facility] [address] [place], [address] BENZODIAZIPINE Negative Normal < 200 ng/mL [facility] Comment on above: Order Comment: PAIN MANAGMENT MEDTOX Performed By: #### L 505.5000, L3410.9992 #### [facility] [address] [place], [address] BUP Ur Drug Scr Negative Normal < 200 ng/mL [facility] Comment on above: Order Comment: PAIN MANAGMENT MEDTOX Performed By: #### L 505.5000, L3410.9992 #### [facility] [address] [place], [address] COCAINE Negative Normal < 300 ng/mL [facility] Comment on above: Order Comment: PAIN MANAGMENT MEDTOX Performed By: #### L 505.5000, L3410.9992 #### [facility] [address] [facility] [address] Fentanyl Negative Normal [facility] Comment on above: Order Comment: PAIN MANAGMENT MEDTOX Performed By: #### L 505.5000, L3410.9992 #### [facility] [address] [place] [id number] METHADONE Negative Normal < 300 ng/mL [facility] Comment on above: Order Comment: PAIN MANAGMENT MEDTOX Performed By: #### L 505.5000, L3410.9992 #### [facility] [address] [place] [id number] OPIATES Negative Normal < 300 ng/mL [facility] Comment on above: Order Comment: PAIN MANAGMENT MEDTOX Performed By: #### L 505.5000, L3410.9992 #### [facility] [address] [facility] [address] OXYCODONE Negative Normal < 100 ng/mL [facility] Comment on above: Order Comment: PAIN MANAGMENT MEDTOX Performed By: #### L 505.5000, L3410.9992 #### [facility] [address] [place] [id number] PCP Negative Normal < 25 ng/mL [facility] Comment on above: Order Comment: PAIN MANAGMENT MEDTOX Performed By: #### L 505.5000, L3410.9992 #### [facility] [address] [place] [address] THC Negative Normal < 50 ng/mL [facility] Comment on above: Order Comment: PAIN MANAGMENT MEDTOX Performed By: #### L 505.5000, L3410.9992 #### [facility] [address] [place] [id number] 25(OH)D3 [facility] 2024 25-hydroxyvitamin D3 [Mass/Vol] 45.0 ng/mL Normal 31.0-80.0 [facility] Comment on above: Order Comment: Speci men Type: BLOOD SPECIMEN Ordering Facility: [facility] Address: [address] [place] [address] Result Comment: Clas sification of 25 [place] Vitamin D status: Deficiency/Insufficiency: < or = 30 ng/ml. Sufficiency/Optimal Levels: 31-80 ng/mL Toxicity: > 100 ng/mL. Test performed by chemiluminescent immunoassay. Performed By: #### 1 989-3 #### [facility] CLIA [id number] [address] [place], [place] [address] [place] [address] [place] CBC panel Auto (Bld)on 03-04 Erythrocyte distribution width (RBC) [Ratio] 13.3 % 11.5 - 15.0 % [facility] Hematocrit (Bld) [Volume fraction] 48.6 % 39.0 - 51.0 % [facility] Hemoglobin (Bld) [Mass/Vol] 15.9 g/dL 13.0 - 17.0 g/dL [facility] Interpretation and review of laboratory results Normal [facility] MCH (RBC) [Entitic mass] 29.7 pg 26.0 - 34.0 pg [facility] MCHC (RBC) [Mass/Vol] 32.7 g/dL 30.5 - 36.0 g/dL [facility] MCV (RBC) [Entitic vol] 90.7 fL 80.0 - 100.0 fL [facility] Nucleated RBC (Bld) [#/Vol] NINF [facility] Platelet mean volume (Bld) [Entitic vol] 11.2 fL 9.0 - 12.7 fL [facility] Platelets (Bld) [#/Vol] 248 10*3/uL [facility] RBC (Bld) [#/Vol] 5.36 10*6/uL 4.20 - 6.0 0 m/uL [facility] WBC (Bld) [#/Vol] 6.1 10*3/uL [facility] Erythrocyte distribution width (RBC) [Ratio] 13.3 % Normal 11.5-15.0 [facility] Comment on above: Order Comment: Speci men Type: BLOOD SPECIMEN Ordering Facility: [facility] Address: [address] [place] [address] Performed By: #### 5 8410-2 #### [facility] CLIA [id number] [address] [place] [address] [place] Hematocrit (Bld) [Volume fraction] 48.6 % Normal 39.0-51.0 [facility] Comment on above: Order Comment: Speci men Type: BLOOD SPECIMEN Ordering Facility: [facility] Address: [address] [place] [address] Performed By: #### 5 8410-2 #### [facility] CLIA [id number] [address] [place] [address] [place] Hemoglobin (Bld) [Mass/Vol] 15.9 g/dL Normal 13.0-17.0 [facility] Comment on above: Order Comment: Speci men Type: BLOOD SPECIMEN Ordering Facility: [facility] Address: [address] [place] [address] Performed By: #### 5 8410-2 #### [facility] CLIA [id number] [address] [place] [address] [place] MCH (RBC) [Entitic mass] 29.7 pg Normal 26.0-34.0 [facility] Comment on above: Order Comment: Speci men Type: BLOOD SPECIMEN Ordering Facility: [facility] Address: [address] [place] [address] Performed By: #### 5 8410-2 #### [facility] CLIA [id number] [address] [place] [address] [place] MCHC (RBC) [Mass/Vol] 32.7 g/dL Normal 30.5-36.0 [facility] Comment on above: Order Comment: Speci men Type: BLOOD SPECIMEN Ordering Facility: [facility] Address: [address] [place] [address] Performed By: #### 5 8410-2 #### [facility] CLIA [id number] [address] [place] [address] [place] MCV (RBC) [Entitic vol] 90.7 fL Normal 80.0-100.0 [facility] Comment on above: Order Comment: Speci men Type: BLOOD SPECIMEN Ordering Facility: [facility] Address: [address] [place] [address] Performed By: #### 5 8410-2 #### [facility] CLIA [id number] [address] [place] [address] [place] Nucleated RBC (Bld) [#/Vol] 10*3/uL Normal <0.01 [facility] Comment on above: Order Comment: Speci men Type: BLOOD SPECIMEN Ordering Facility: [facility] Address: [address] [place] [address] Performed By: #### 5 8410-2 #### [facility] CLIA [id number] [address] [place] [address] [place] Platelet mean volume (Bld) [Entitic vol] 11.2 fL Normal 9.0-12.7 [facility] Comment on above: Order Comment: Speci men Type: BLOOD SPECIMEN Ordering Facility: [facility] Address: [address] [place] [address] Performed By: #### 5 8410-2 #### [facility] CLIA [id number] [address] [place] [address] [place] Platelets (Bld) [#/Vol] 248 10*3/uL Normal 150-400 [facility] Comment on above: Order Comment: Speci men Type: BLOOD SPECIMEN Ordering Facility: [facility] Address: [address] [place] [address] Performed By: #### 5 8410-2 #### [facility] CLIA [id number] [address] [place] [address] [place] RBC (Bld) [#/Vol] 5.36 10*6/uL Normal 4.20-6.00 [facility] Comment on above: Order Comment: Speci men Type: BLOOD SPECIMEN Ordering Facility: [facility] Address: [address] [place] [address] Performed By: #### 5 8410-2 #### [facility] CLIA [id number] [address] [place] [address] [place] WBC (Bld) [#/Vol] 6.10 10*3/uL Normal 3.70-11.00 [facility] Comment on above: Order Comment: Speci men Type: BLOOD SPECIMEN Ordering Facility: [facility] Address: [address] [place] [address] Performed By: #### 5 8410-2 #### [facility] CLIA [id number] [address] [place] [address] [place] CNOVon 03-04-2025 CNOV Office Visit (INTMWS ) -- DONIS FERRER ([id number]) 1985 M Date Time Provider Department 03/04/25 2:20 PM MJ TY INTMWS During your visit today, we recorded the following information about you: Pulse Respiration Blood pressure Weight 96/minute 18/minute 118/70 116.3 kg Jm Ty MD 03/04/2025 2:20 PM Signed This note was created using [employer]. Subjective Donis Ferrer is a 39 year old male. He complained of chronic fatigue. He was now seeing Dr. Monico Shay, [facility], and was started on bupropion XL a few weeks ago. His medication list was updated. He mood was better overall. 1) Snoring? Yes. 2) Tired? Yes. 3) Observed apnea? No. 4) Pressure (Hypertension)? No. 5) BMI>45? No. 6) Age>50? No. 7) Neck circumference >40cm? No. 8) Gender male? Yes. Conclude: Total 3 or more positive responses? Yes. Review of Systems Constitutional: Positive for fatigue and unexpected weight change. Respiratory: Negative for apnea, choking and shortness of breath. + Snoring. Cardiovascular: Negative. Gastrointestinal: Negative. Psychiatric/Behavioral: Negative for sleep disturbance. ACTIVE PROBLEM LIST Tobacco Use Disorder Recurrent Major Depression in Partial Remission Dislocated Iol (Intraocular Lens) Vitamin D Deficiency Generalized Anxiety Disorder History of Substance Abuse (Hcc) Borderline Personality Disorder (Hcc) Obesity, Class I, Bmi 30-34.9 Social History Tobacco Use Smoking status: Former Current packs/day: 0.00 Average packs/day: 1 pack/day for 25.8 years (25.8 ttl pk-yrs) Types: Cigarettes Start date: 1997 Quit date: 02/03/2023 Years since quittin.0 Smokeless tobacco: Never Tobacco comments: Started age 12. Vaping Use Vaping status: Former Start date: 09/05/2022 Substances: Nicotine, Flavoring Devices: Disposable, Pre-filled or refillable cartridge Substance Use Topics Alcohol use: No Drug use: No Comment: history of opiate abuse, etc. no IVDA Current Outpatient Medications Medication Sig OLANZapine (ZYPREXA) 5 mg tablet Take 1 tablet by mouth every afternoon. DULoxetine (CYMBALTA) 60 mg capsule Take 1 capsule by mouth daily at bedtime. DULoxetine (CYMBALTA) 30 mg capsule Take 1 capsule by mouth every morning. ergocalciferol 50,000 unit capsule (VITAMIN D2, DRISDOL) Take 1 capsule by mouth one time a week. hydrOXYzine pamoate (VISTARIL) 25 mg capsule Take 1 capsule by mouth three times a day as needed. nortriptyline (PAMELOR) 25 mg capsule Take 1 capsule by mouth daily at bedtime. buPROPion XL (WELLBUTRIN XL) 150 mg 24 hr tablet Take 1 tablet by mouth once daily. Dr. Shay. gabapentin (NEURONTIN) 100 mg capsule Take 1 capsule by mouth three times a day. Per Dr. Monico Shay. No current facility-administered medications for this visit. Objective BP 118/70 (BP Site: Left Arm, BP Position: Sitting, BP Cuff Size: Large Adult) Pulse 96 Resp 18 Wt 116.3 kg (256 lb 6.3 oz) BMI 34.77 kg/m? Physical Exam Constitutional: Appearance: He is obese. He is not ill-appearing. HENT: Head: Normocephalic. Eyes: Conjunctiva/sclera: Conjunctivae normal. Cardiovascular: Rate and Rhythm: Normal rate and regular rhythm. Heart sounds: No murmur heard. No gallop. Pulmonary: Breath sounds: Normal breath sounds. Neurological: Mental Status: He is alert. Psychiatric: Mood and Affect: Mood normal. Behavior: Behavior normal. Thought Content: Thought content normal. Assessment and Plan 1. Recurrent major depression in partial remission - ICD9: 296.35, ICD10: F33.41 (primary diagnosis) Improved. He follows now with [facility], Dr. Monico Shay. 2. Generalized anxiety disorder - ICD9: 300.02, ICD10: F41.1 As above. 3. Borderline personality disorder (HCC) - ICD9: 301.83, ICD10: F60.3 As above. 4. Vitamin D deficiency - ICD9: 268.9, ICD10: E55.9 Check. - VITAMIN D 25 HYDROXY 5. Fatigue, unspecified type - ICD9: 780.79, ICD10: R53.83 Update labs. - COMPLETE BLOOD COUNT - COMPREHENSIVE METABOLIC PANEL - THYROID STIMULATING HORMONE - VITAMIN B12 - HOME SLEEP APNEA TEST (HSAT) 6. Snoring - ICD9: 786.09, ICD10: R06.83 - HOME SLEEP APNEA TEST (HSAT) Patient indicated understanding and willingness to follow recommendations. Jm Ty MD Allergies As of Date: 03/04/2025 (No Known Allergies) Date Reviewed: 03/04/2025 Reviewed by: Eleni Bowling LPN - Fully Assessed Reason for Visit: 4 month follow-up [Other] Primary Visit Diagnosis:Recurrent major depression in partial remission [F33.41] Other Visit Diagnoses:Generalized anxiety disorder [F41.1] Borderline personality disorder (HCC) [F60.3] Vitamin D deficiency [E55.9] Fatigue, unspecified type [R53.83] Snoring [R06.83] Order(s):COMPLETE BLOOD COUNT [SQCBC] Order #: [id number] [facility] (more content not included)... Normal [facility] Comprehensive metabolic 2000 panelon 03-04-2025 Albumin [Mass/Vol] 4.6 g/dL Normal 3.9-4.[address] [facility] Comment on above: Order Comment: Speci men Type: BLOOD SPECIMEN Ordering Facility: [facility] Address: [address] [place] [address] Performed By: #### 1 989-3 #### [facility] CLIA [id number] [address] [place] [address] [place] ALP [Catalytic activity/Vol] 61 U/L Normal 38-113 [facility] Comment on above: Order Comment: Speci men Type: BLOOD SPECIMEN Ordering Facility: [facility] Address: [address] [place] [address] Performed By: #### 1 989-3 #### [facility] CLIA [id number] [address] [place] [address] [place] ALT [Catalytic activity/Vol] 25 U/L Normal 10-54 [facility] Comment on above: Order Comment: Speci men Type: BLOOD SPECIMEN Ordering Facility: [facility] Address: [address] [place] [address] Performed By: #### 1 989-3 #### [facility] CLIA [id number] [address] [place] [address] [place] Anion gap [Moles/Vol] 10 mmol/L Normal 8-15 [facility] Comment on above: Order Comment: Speci men Type: BLOOD SPECIMEN Ordering Facility: [facility] Address: [address] [place] [address] Performed By: #### 1 989-3 #### [facility] CLIA [id number] [address] [place] [address] [place] AST [Catalytic activity/Vol] 27 U/L Normal 14-40 [facility] Comment on above: Order Comment: Speci men Type: BLOOD SPECIMEN Ordering Facility: [facility] Address: [address] [place] [address] Performed By: #### 1 989-3 #### [facility] CLIA [id number] [address] [place] [address] [place] Bilirubin [Mass/Vol] 0.6 mg/dL Normal 0.2-1.3 [facility] Comment on above: Order Comment: Speci men Type: BLOOD SPECIMEN Ordering Facility: [facility] Address: [address] [place] [address] Performed By: #### 1 989-3 #### [facility] CLIA [id number] [address] [place] [address] [place] Calcium [Mass/Vol] 9.6 mg/dL Normal 8.5-10.[address] [facility] Comment on above: Order Comment: Speci men Type: BLOOD SPECIMEN Ordering Facility: [facility] Address: [address] [place] [address] Performed By: #### 1 989-3 #### [facility] CLIA [id number] [address] [place] [address] [place] Chloride [Moles/Vol] 102 mmol/L Normal 98-107 [facility] Comment on above: Order Comment: Speci men Type: BLOOD SPECIMEN Ordering Facility: [facility] Address: [address] [place] [address] Performed By: #### 1 989-3 #### [facility] CLIA [id number] [address] [place] [address] [place] CO2 [Moles/Vol] 27 mmol/L Normal 22-30 [facility] Comment on above: Order Comment: Speci men Type: BLOOD SPECIMEN Ordering Facility: [facility] Address: [address] [place] [address] Performed By: #### 1 989-3 #### [facility] CLIA [id number] [address] [place] [address] [place] Creatinine [Mass/Vol] 1.27 mg/dL High 0.73-1.22 [facility] Comment on above: Order Comment: Gary men Type: BLOOD SPECIMEN Ordering Facility: [facility] Address: [address] [place] [address] Performed By: #### 1 989-3 #### [facility] CLIA [id number] [address] [place] [address] [place] Creatinine and Glomerular filtration rate.predicted panel (S/P/Bld) 73 mL/min/1.73m??? Normal >=60 [facility] Comment on above: Order Comment: Gary davis Type: BLOOD SPECIMEN Ordering Facility: [facility] Address: [address] [place] [address] Result Comment: Marnie mated Glomerular Filtration Rate (eGFR) is calculated using the 2020 CKD-EPI creatinine equation. This equation utilizes serum creatinine, sex, and age as parameters. The creatinine assay has traceable calibration to isotope dilution-mass spectrometry. Refer to KDIGO guidelines for clinical interpretation. In patients with unstable renal function, e.g. those with acute kidney injury, the eGFR may not accurately reflect actual GFR. Performed By: #### 1 989-3 #### [facility] CLIA [id number] [address] [place] [address] [place] Glucose [Mass/Vol] 66 mg/dL Low 74-[address] [facility] Comment on above: Order Comment: Freyai men Type: BLOOD SPECIMEN Ordering Facility: [facility] Address: [address] [place] [address] Result Comment: The [place] [employer] (ADA) provides guidance for cutoff values for fasting glucose and random glucose. The ADA defines fasting as no caloric intake for at least 8 hours. Fasting plasma glucose results between 100 to 125 [...] Standards of Medical Care in Diabetes 2016, [place] [employer]. Diabetes Care. 2016.39(Suppl 1). Performed By: #### 1 989-3 #### [facility] CLIA [id number] [address] [place] [address] [place] Potassium [Moles/Vol] 4.4 mmol/L Normal 3.7-5.1 [facility] Comment on above: Order Comment: Speci men Type: BLOOD SPECIMEN Ordering Facility: [facility] Address: [address] [place] [address] Performed By: #### 1 989-3 #### [facility] CLIA [id number] [address] [place] [address] [place] Protein [Mass/Vol] 7.4 g/dL Normal 6.3-8.[address] [facility] Comment on above: Order Comment: Speci men Type: BLOOD SPECIMEN Ordering Facility: [facility] Address: [address] [place] [address] Performed By: #### 1 989-3 #### [facility] CLIA [id number] [address] [place] [address] [place] Sodium [Moles/Vol] 139 mmol/L Normal 136-[address] [facility] Comment on above: Order Comment: Speci men Type: BLOOD SPECIMEN Ordering Facility: [facility] Address: [address] [place] [address] Performed By: #### 1 989-3 #### [facility] CLIA [id number] [address] [place] [address] [place] Urea nitrogen [Mass/Vol] 8 mg/dL Low 9-24 [facility] Comment on above: Order Comment: Speci men Type: BLOOD SPECIMEN Ordering Facility: [facility] Address: [address] [place] [address] Performed By: #### 1 989-3 #### [facility] CLIA [id number] [address] [place] [address] [place] TSH SerPl-aCncon 03-04-2025 TSH Qn 1.850 m[IU]/L Normal 0.270-4.200 [facility] Comment on above: Order Comment: Speci men Type: BLOOD SPECIMEN Ordering Facility: [facility] Address: [address] [place] [address] Performed By: #### 1 989-3 #### [facility] CLIA [id number] [address] [place] [address] [place] Vit B12 SerPl-mCncon 025 Cobalamin (Vitamin B12) [Mass/Vol] 471 pg/mL Normal 232-1245 [facility] Comment on above: Order Comment: Speci men Type: BLOOD SPECIMEN Ordering Facility: [facility] Address: [address] [place] [address] Performed By: #### 1 989-3 #### [facility] CLIA [id number] [address] [place] [address] [place] MR/BMS.BPon 02-11-2025 MR/BMS.BP [address], [address] [place] [address] OFFICE VISIT Date of Service: 02/11/25 MR#: [id number] Acct: [id number] Name: DONIS FERRER Rep #: [id number] : 1985 Provider: Dr. Monico Wong se, DO Age/Sex: 39/M Location: [facility].BP Status: Signed Intake Vital Signs 12/31/24 10:03 01/07/25 10:47 02/11/25 11:05 Height 6 ft 6 ft 6 ft Weight: 254 lb BMI 34.4 BP 117/82 H Blood Pressure Location Lt brachial Position Sitting Respiration 16 Pulse 109 H Pulse Source Monitor BP Intake Visit Reasons: 6 wk FU Accompanied by: Self Allergies No Known Allergies Allergy (Verified 02/11/25 11:07) Medications ???Medication ???Instructions ???Recorded ???Confirmed ???Type cholecalciferol (vitamin D3) 25 25 mcg PO DAILY 12/15/20 02/11/25 History mcg (1,000 unit) capsule duloxetine 30 mg capsule,delayed 30 mg PO QAM #30 caps 12/31/2407/30 Rx release duloxetine 60 mg capsule,delayed 60 mg PO QHS #30 caps 12/31/2407/30 Rx release gabapentin 100 mg capsule 100 mg PO TID anxiety 30 days #90 12/31/24 02/11/25 Rx caps hydroxyzine pamoate 25 mg capsule 25 mg PO BID PRN anxiety #60 caps 12/31/24 02/11/25 Rx olanzapine 5 mg tablet 5 mg PO QDAY #30 tabs 12/31/2407/30 Rx nortriptyline 25 mg capsule 25 mg PO QHS #30 caps 01/21/2507/30 Rx bupropion HCl 150 mg 24 hr tablet, 150 mg PO DAILY 30 days #30 tabs 01/28/25 02/11/25 Rx extended release (Wellbutrin XL) [facility] Medical History (Updated 01/07/25 @ 14:02 by Katarina Chow) Dextromethorphan use disorder, moderate, in early remission Anxiety disorder, unspecified Substance use disorder Bipolar disorder, unspecified Major depressive disorder, recurrent, moderate Panic disorder Panic attacks Back pain Limb weakness Arthritis Surgical History H/O eye surgery Mobile teeth removed Family History Other Anxiety Depression Social History (Updated 12/31/24 @ 10:04 by Radha Simpson) household members: none Smoking Status: Current every day smoker tobacco type: e-cigarettes alcohol intake: never substance use type: former substance user HPI History of Present Illness History provided by: patient HPI: Donis Ferrer is a 39 year old male who presents today for follow up evaluation. Patient reports that he has remained tired all the time. Was started on wellbutrin about 1-2 weeks ago, and has not yet seen significant benefit to this point. Feels that vaping is More disgusting than usual. Denies any other significant med changes at this time. Denies any significant depression. Anxiety has been fairly well controlled. Does feel like it has improved overall. Sleep has been fine. Getting more than 9 hours per night and does take naps. Has been told that he snores. Feels like gabapentin helps to some degree. Doesn't feel like it contributes to his fatigue. Is set to finish IOP at the end of the week. Does struggle in motivation to some degree. Hoping to get scheduled to follow with an outpatient therapist. Does still have some community service he has to complete. Does get regular drug screens as part of probation. Denies SI/HI or AVH. Review of Systems Constitutional Reports: fatigue; Denies: fever(s), chills or change in weight Eyes Denies: change in vision or blurry vision Ears, Nose, Mouth, Throat Denies: throat pain, neck pain or change in hearing Cardiovascular Denies: chest pain, palpitations or dyspnea Respiratory Denies: dyspnea, cough or wheezing Gastrointestinal Denies: abdominal pain, nausea, vomiting, diarrhea or constipation Genitourinary Denies: dysuria or urinary frequency Musculoskeletal Reports: extremity pain (general achiness); Denies: back pain, neck pain, joint pain or muscle weakness Integumentary/Breast Denies: rash or new lesions Neurological Denies: headache(s), dizziness or confusion Endocrine Reports: fatigue; Denies: excessive sweating Hematologic/Lymphatic Denies: easy bruising or easy bleeding Allergic/Immunologic Denies: wheezing Exam Mental Status Exam - Psych Appearance unkempt Attitude cooperative Activity/Motor Behavior MSE activity/motor behavior finding no adventitious movements Speech regular rate, regular volume and regular prosody Mood OK Affect restricted Thought Process linear, logical and coherent Thought Content no delusions and no hallucinations Suicidal Ideation none Homicidal Ideation none Attention intact Concentration intact Sensorium/Orientation awake, alert and oriented x3 Memory/Cognition other (appropriate for stated age) Insight fair Judgement fair (more content not included)... Normal [facility] MR/BMS.BPon 12-31-2024 MR/BMS.BP [facility] [address], [address] [place] [id number] OFFICE VISIT Date of Service: 12/31/24 MR#: [id number] Acct: [id number] Name: DONIS FERRER Rep #: [id number] : 1985 Provider: Dr. Monico Wong se, DO Age/Sex: 39/M Location: [facility].BP Status: Signed Intake Vital Signs 12/17/23 09:26 12/31/24 09:53 12/31/24 10:03 Height 6 ft 6 ft Weight: 254 lb BMI 34.4 BP 137/84 H Blood Pressure Location Lt brachial Position Sitting Respiration 16 Pulse 102 H Pulse Source Monitor BP Intake Visit Reasons: DEPRESSION, BORDERLINE PERSONALITY DISORDER Allergies No Known Allergies Allergy (Verified 12/31/24 10:00) Medications ???Medication ???Instructions ???Recorded ???Confirmed ???Type cholecalciferol (vitamin D3) 25 25 mcg PO DAILY 12/15/20 12/31/24 History mcg (1,000 unit) capsule duloxetine 30 mg capsule,delayed 30 mg PO QAM #30 caps 12/31/24 Rx release duloxetine 60 mg capsule,delayed 60 mg PO QHS #30 caps 12/31/24 Rx release gabapentin 100 mg capsule 100 mg PO TID anxiety 30 days #90 12/31/24 12/31/24 Rx caps hydroxyzine pamoate 25 mg capsule 25 mg PO BID PRN anxiety #60 caps 12/31/24 12/31/24 Rx nortriptyline 25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 Encounter Date Encounter Type Care Provider Facility Start: 06-17-2025 End: 06-17-2025 ambulatory Jm Ty Facility:[facility] Start: 05-28-2025 End: 05-29-2025 ambulatory Jm Ty MD Work Phone: [facility] [place] Comment on above: Question / Conversta tion Start: 04-15-2025 End: 04-15-2025 ambulatory Monico Shay Facility:[facility] Start: 03-18-2025 End: 03-18-2025 Refill Jm Ty MD Work Phone: [facility] [place] Comment on above: Refill Request Start: 03-18-2025 End: 03-18-2025 ambulatory Mark Arvizu Facility:[facility] Start: 03-07-2025 End: 03-07-2025 Follow-up encounter Jm Ty MD Work Phone: [facility] [place] Start: 03-04-2025 End: 03-04-2025 Patient encounter procedure Jm Ty MD Work Phone: [facility] [place] Comment on above: Recurrent major depr ession in partial remission (Primary Dx); Generalized anxiety disorder; Borderline personality disorder (HCC); Vitamin D deficiency; Fatigue, unspecified type; Snoring Start: 03-04-2025 End: 03-04-2025 ambulatory JM TY Facility:[facility] Start: 03-04-2025 End: 03-04-2025 ambulatory JM TY Facility:[facility] Start: 02-11-2025 End: 02-11-2025 ambulatory Jm Ty Facility:[facility] Start: 02-03-2025 End: 02-13-2025 ambulatory Koki Jacksonro Facility:[facility] Start: 01-05-2025 End: 02-02-2025 ambulatory Koki Castillo Facility:[facility] Start: 12-31-2024 End: 01-02-2025 ambulatory Jm Ty Facility:[facility] Start: 12-25-2024 End: 12-25-2024 Refill Jm Ty MD Work Phone: [facility] [place] Comment on above: Refill Request Start: 12-22-2024 End: 12-22-2024 Refill Jm Ty MD Work Phone: [facility] [place] Comment on above: Refill Request Start: 11-12-2024 End: 11-13-2024 Telephone encounter Magaly Alvarez APRN.FACILITY MAINTENANCE HELPER Work Phone: Psychiatry Comment on above: Medication Problem ( Call placed to Kit explaining that Magaly hasn't seen patient since 2022, will have to have PCP make medication changes. I have no availability to make his OV earlier at this time. Kit voices understanding. Maday Tesfaye LPN/) Patient Update; Appo intment Start: 11-03-2024 End: 11-03-2024 ambulatory JM TY Facility:[facility] Start: 11-03-2024 End: 11-03-2024 Patient encounter procedure Jm Ty MD Work Phone: [facility] [place] Comment on above: Recurrent major depr ession in partial remission (HCC) (Primary Dx); Vitamin D deficiency; Generalized anxiety disorder; Borderline personality disorder (HCC); Tobacco use disorder Start: 07-04-2024 End: 07-04-2024 Telephone encounter Jm Ty MD Work Phone: [facility] [place] Comment on above: Release Of Medical R ecords Start: 06-04-2024 Refill Jm devries MD Work Phone: [facility] [place] Comment on above: Refill Request Start: 03-12-2024 Telephone encounter Jm lorenzana MD Work Phone: [facility] [place] Comment on above: Medication Problem Start: 01-29-2024 Telephone encounter Magaly mcgee APRN.FACILITY MAINTENANCE HELPER Work Phone: Psychiatry Comment on above: mother calling with what is going on with her son Start: 12-19-2023 End: 12-19-2023 Patient encounter procedure Jm Ty MD Work Phone: [facility] [place] Comment on above: Recurrent major depr ession in partial remission (HCC) (Primary Dx); Generalized anxiety disorder; History of substance abuse (HCC) Start: 08-27-2023 Refill Jm devries MD Work Phone: [facility] [place] Comment on above: Refill Request Start: 08-13-2023 End: 08-13-2023 Patient encounter procedure Magaly Khadar Anil TAXI PROPRIETOR.FACILITY MAINTENANCE HELPER Work Phone: Psychiatry Comment on above: APPOINTMENT CANCELLE D (Primary Dx) Start: 08-13-2023 End: 08-13-2023 Telemedicine consultation with patient Magaly Alvarez TAXI PROPRIETOR.FACILITY MAINTENANCE HELPER Work Phone: [facility] Start: 08-01-2023 ambulatory Magaly Rubalcava Jessr u TAXI PROPRIETOR.FACILITY MAINTENANCE HELPER Work Phone: Psychiatry Comment on above: Med Change Start: 07-31-2023 Refill Whitley Veliz TAXI PROPRIETOR .FACILITY MAINTENANCE HELPER Work Phone: [facility] Comment on above: Refill Request Start: 07-27-2023 Telephone encounter Jm lorenzana MD Work Phone: [facility] [place] Comment on above: Patient Question; Re turning Patient's Call Start: 07-16-2023 End: 07-16-2023 ambulatory Magaly Khadar Mercadoriky TAXI PROPRIETOR.FACILITY MAINTENANCE HELPER Work Phone: Psychiatry Comment on above: NO SHOW (Primary Dx) Start: 07-16-2023 End: 07-16-2023 Telemedicine consultation with patient Magaly Alvarez TAXI PROPRIETOR.FACILITY MAINTENANCE HELPER Work Phone: [facility] Start: 05-09-2023 Refill Jm devries MD Work Phone: [facility] [place] Comment on above: Refill Request Start: 03-13-2023 Refill Magaly Khadar Barriegur u TAXI PROPRIETOR.FACILITY MAINTENANCE HELPER Work Phone: Psychiatry Comment on above: Refill Request Start: 02-22-2023 End: 02-22-2023 ambulatory Magaly Alvarez TAXI PROPRIETOR.FACILITY MAINTENANCE HELPER Work Phone: Psychiatry Comment on above: NO SHOW (Primary Dx) Start: 02-22-2023 End: 02-22-2023 Telemedicine consultation with patient Magaly Alvarez APRN.FACILITY MAINTENANCE HELPER Work Phone: [facility] Start: 02-14-2023 Refill Magaly Mercador u TAXI PROPRIETOR.FACILITY MAINTENANCE HELPER Work Phone: Psychiatry Comment on above: Refill Request Start: 02-13-2023 Refill Jm devries MD Work Phone: [facility] [place] Comment on above: Refill Request Start: 02-12-2023 ambulatory Magayl Mercador u TAXI PROPRIETOR.FACILITY MAINTENANCE HELPER Work Phone: Psychiatry Comment on above: Prozac Start: 02-05-2023 End: 02-05-2023 [facility] Magaly Alvarez TAXI PROPRIETOR.FACILITY MAINTENANCE HELPER Work Phone: Psychiatry Comment on above: Generalized anxiety disorder (Primary Dx); Borderline personality disorder (HCC); Major depressive disorder, recurrent episode, moderate (HCC) Start: 12-11-2022 Refill Magaly Bartlett u TAXI PROPRIETOR.FACILITY MAINTENANCE HELPER Work Phone: Psychiatry Comment on above: Refill Request Start: 11-23-2022 End: 11-23-2022 Patient encounter procedure Jm Ty MD Work Phone: [facility] [place] Comment on above: Tobacco use disorder (Primary Dx); Vitamin D deficiency Start: 11-07-2022 End: 11-07-2022 [facility] Magaly Alvarez TAXI PROPRIETOR.FACILITY MAINTENANCE HELPER Work Phone: Psychiatry Comment on above: Generalized anxiety disorder (Primary Dx); Borderline personality disorder (HCC); Recurrent major depressive disorder, in partial remission (HCC) Start: 09-04-2022 End: 09-04-2022 [facility] Magaly Mercadoru TAXI PROPRIETOR.FACILITY MAINTENANCE HELPER Work Phone: Psychiatry Comment on above: Borderline personali ty disorder (HCC) (Primary Dx); Generalized anxiety disorder; Recurrent major depressive disorder, in partial remission (HCC) Start: 09-01-2022 End: 09-01-2022 Patient encounter procedure Magaly Alvarez APRN.[facility] Work Phone: Psychiatry Comment on above: APPOINTMENT CANCELLE D (Primary Dx) Start: 09-01-2022 End: 09-01-2022 Telemedicine consultation with patient Magaly Rubalcava Anil AUGUSTINE.[facility] Work Phone: [facility] Start: 07-28-2022 Telephone encounter Magaly mcgee APRN.[facility] Work Phone: Psychiatry Comment on above: Medication Update Start: 07-14-2022 Nurse Triage aCrla FREEMAN E [employer]ER Comment on above: Refill Request Information Start: 07-13-2022 End: 07-13-2022 [facility] Magalykarma Alvarez APRN.[facility] Work Phone: Psychiatry Comment on above: Generalized anxiety disorder (Primary Dx); Major depressive disorder, recurrent episode, moderate (HCC); Borderline personality disorder (HCC) Start: 06-29-2022 Refill Jm devries MD Work Phone: [facility] [place] Comment on above: Refill Request Start: 06-22-2022 End: 06-22-2022 [facility] Magaly Khadar Alvarez APRN.[facility] Work Phone: Psychiatry Comment on above: Generalized anxiety disorder (Primary Dx); Major depressive disorder, recurrent episode, moderate (HCC); Borderline personality disorder (HCC) Start: 06-19-2022 End: 06-19-2022 Patient encounter procedure Jm Ty MD Work Phone: [facility] [place] Comment on above: Generalized anxiety disorder (Primary Dx); Obesity, Class I, BMI 30-34.9 Start: 06-19-2022 ambulatory Nimisha REDDY TUMBLER TENDER Comment on above: Sore Throat Start: 06-08-2022 Telephone encounter Magaly mcgee APRN.[facility] Work Phone: Psychiatry Comment on above: Medication Problem Start: 06-04-2022 ambulatory Magaly benjamin APRN.FACILITY MAINTENANCE HELPER Work Phone: Psychiatry Comment on above: Ativan Start: 06-04-2022 Telephone encounter Yuliana Zach [facility] Comment on above: Medication Request Start: 05-31-2022 Refill Magaly benjamin APRN.FACILITY MAINTENANCE HELPER Work Phone: Psychiatry Comment on above: Refill Request Start: 2022 End: 2022 Patient encounter procedure Jm Ty MD Work Phone: [facility] [place] Comment on above: Viral upper respirat ory tract infection (Primary Dx); Generalized anxiety disorder Start: 04-14-2022 End: 04-14-2022 [facility] Magaly Alvarez APRN.FACILITY MAINTENANCE HELPER Work Phone: Psychiatry Comment on above: KATIE (generalized anx iety disorder) (Primary Dx); Major depressive disorder, recurrent episode, moderate (HCC); Borderline personality disorder (HCC) Start: 03-27-2022 End: 03-27-2022 Subsequent hospital visit by physician Iop Team A [facility] Comment on above: No Show Start: 03-13-2022 End: 03-13-2022 Subsequent hospital visit by physician Iop Team A [facility] Start: 03-06-2022 End: 03-06-2022 Refill Magaly Alvarez APRN.FACILITY MAINTENANCE HELPER Work Phone: Psychiatry Comment on above: Refill Request Start: 02-27-2022 End: 02-27-2022 Subsequent hospital visit by physician Iop Team A [facility] Start: 02-20-2022 End: 02-20-2022 Subsequent hospital visit by physician Iop Team A [facility] Comment on above: Canceled (Pt cx: Mateusz ointment Conflict) Start: 02-13-2022 End: 02-13-2022 Subsequent hospital visit by physician Iop Team A [facility] Start: 02-10-2022 End: 02-10-2022 [facility] Magaly Alvarez APRN.FACILITY MAINTENANCE HELPER Work Phone: Psychiatry Comment on above: Major depressive dis order, recurrent episode, moderate (HCC) (Primary Dx); KATIE (generalized anxiety disorder); Borderline personality disorder (HCC) Start: 02-06-2022 End: 02-06-2022 Subsequent hospital visit by physician Iop Team A [facility] Start: 01-26-2022 Refill Magaly benjamin APRN.FACILITY MAINTENANCE HELPER Work Phone: Psychiatry Comment on above: Refill Request Start: 01-23-2022 End: 01-23-2022 Subsequent hospital visit by physician Iop Team A [facility] Start: 01-16-2022 End: 01-16-2022 Subsequent hospital visit by physician Iop Team A [facility] Comment on above: Canceled (Pt cx: Yelena watson in Condition, Sick) Start: 01-09-2022 End: 01-09-2022 Subsequent hospital visit by physician Iop Team A [facility] Start: 01-02-2022 End: 01-02-2022 Subsequent hospital visit by physician Iop Team A [facility] Start: 12-26-2021 End: 12-26-2021 Subsequent hospital visit by physician Iop Team A [facility] Start: 12-15-2021 Telephone encounter Jm lorenzana MD Work Phone: [facility] [place] Comment on above: Medication Problem Start: 10-25-2021 End: 10-25-2021 Subsequent hospital visit by physician Iop Team B [facility] Start: 09-21-2021 Telephone encounter Magaly mcgee APRN.FACILITY MAINTENANCE HELPER Work Phone: Psychiatry Comment on above: Medication Problem Start: 09-13-2018 Evaluation and management of inpatient Dave Buchanan Facility:[facility] Start: 07-05-2018 End: 07-10-2018 Evaluation and management of inpatient Chemapanchosammy Rivasel Facility:[facility] Start: 05-31-2018 End: 06-10-2018 Evaluation and management of inpatient [facility] Manuel Buchanan Facility:[facility] Procedures Date Procedure Procedure Detail Performing Clinician Start: 05-25-2023 Lipid 1996 panel - S yoel or Plasma Jm Ty MD Work Phone: Start: 2022 2019 CORONAVIRUS Jm Ty MD Work Phone: Plan of Treatment Date Care Activity Detail Author Start: 05-25-2028 Lipid 1996 panel - S yoel or Plasma Lipid Screening [facility] Start: 05-25-2028 Lipid [address] Lipid Screening [facility] Start: 05-25-2028 LIPID SCREEN LIPID SCREEN [facility] Start: 03-01-2028 Urine microalbumin profile [facility] Start: 11-03-2025 Covid-19 Vaccine () Covid-19 Vaccine () [facility] Comment on above: Postponed from 07/06 (Declined at this time) Start: 09-03-2025 End: 09-03-2025 Patient encounter procedure 09/03/2025 1:40 PM EDT Office Visit [facility] [address], [place] [id number] Jm Ty MD [address] [place], [place] [id number] 6 month follow up [facility] Comment on above: 6 month follow up Start: 07-06-2025 Influenza vaccination [facility] Start: 06-05-2025 End: 06-05-2025 Patient encounter procedure 06/05/2025 3:40 PM EDT Office Visit [facility] [address], [place] [id number] Jm Ty MD [address] [place], [place] [phone] discuss medication [facility] Comment on above: discuss medication Start: 05-04-2025 Influenza vaccination Influenza Vacc ine (#1) [facility] Comment on above: Postponed from 07/06 (Declined at this time) Start: 03-26-2025 End: 03-26-2025 Patient encounter procedure 03/26/2025 2:00 PM EDT Office Visit Neurology [address] [place] [address] Fatigue, unspecified type [R53.83]; Snoring [R06.83] Neurology Comment on above: Fatigue, unspecified type [R53.83]; Snoring [R06.83] Start: 03-04-2025 End: 03-04-2025 Patient encounter procedure 03/04/2025 2:20 PM EDT Office Visit [facility] [place] [address] [place] [address] Jm Ty MD [address], [place] [phone] 4 month follow-up [facility] [place] Comment on above: 4 month follow-up Start: 03-04-2025 End: 06-03-2025 25-hydroxyvitamin D3 [Mass/volume] in Serum or Plasma [facility] Comment on above: Expected: 03/04/2025 , Expires: 06/03/2025 Start: 03-04-2025 End: 06-03-2025 Cobalamin (Vitamin B12) [Mass/volume] in Serum or Plasma [facility] Comment on above: Expected: 03/04/2025 , Expires: 06/03/2025 Start: 03-04-2025 End: 06-03-2025 Comprehensive metabolic 2000 panel - Serum or Plasma [facility] Work Phone: Comment on above: Expected: 03/04/2025 , Expires: 06/03/2025 Start: 03-04-2025 End: 06-03-2025 Thyrotropin [Units/volume] in Serum or Plasma [facility] Comment on above: Expected: 03/04/2025 , Expires: 06/03/2025 Start: 12-23-2024 End: 12-23-2024 Patient encounter procedure 12/23/2024 2:30 PM EST Office Visit Psychiatry [address] [place] [phone] Magaly Alvarez, TAXI PROPRIETOR.FACILITY MAINTENANCE HELPER [address] [place] [phone] Recurrent major depression in partial remission (HCC) [F33.41] Psychiatry Comment on above: Recurrent major depr ession in partial remission (HCC) [F33.41] Start: 12-19-2024 Covid-19 Vaccine (#1) Covid-19 Vacci ne (#1) [facility] Comment on above: Postponed from 10/28 (Declined at this time) Start: 12-19-2024 Covid-19 Vaccine () Covid-19 Vaccine () [facility] Comment on above: Postponed from 07/06 (Declined at this time) Start: 07-06-2024 Influenza vaccination C [facility] Start: 05-16-2024 End: 05-16-2024 Patient encounter procedure 05/16/2024 1:00 PM EDT Office Visit [facility] [place] [address], [place] [id number] Jm Ty MD [address], [place] [id number] 5 month follow-up [facility] [place] Comment on above: 5 month follow-up Start: 05-04-2024 Influenza vaccination Influenza Vacc ine (#1) [facility] Comment on above: Postponed from 07/06 (Declined at this time) Start: 11-23-2023 COVID-19 VACCINE (#1) COVID-19 VACCI NE (#1) [facility] Comment on above: Postponed from 10/28 (Declined at this time) Start: 07-06-2023 Influenza vaccination [facility] Start: 05-09-2023 End: 07-09-2023 25-hydroxyvitamin D3 [Mass/volume] in Serum or Plasma VITAMIN D 25 HYDROXY Lab Routine Vitamin D deficiency Expected: 05/09/2023, Expires: 07/09/2023 [facility] Work Phone: Comment on above: Expected: 05/09/2023 , Expires: 07/09/2023 Start: 05-09-2023 End: 07-09-2023 Comprehensive metabolic 2000 panel - Serum or Plasma COMP METABOLIC PANEL Lab Routine Obesity, Class I, BMI 30-34.9 Expected: 05/09/2023, Expires: 07/09/2023 [facility] Work Phone: Comment on above: Expected: 05/09/2023 , Expires: 07/09/2023 Start: 05-04-2023 Influenza vaccination INFLUENZA (#1) [facility] Comment on above: Postponed from 07/06 (Declined at this time) Start: 03-19-2023 LIPID SCREEN LIPID SCREEN [facility] Start: 02-21-2023 End: 04-23-2023 25-hydroxyvitamin D3 [Mass/volume] in Serum or Plasma VITAMIN D 25 HYDROXY Lab Routine Vitamin D deficiency Expected: 02/21/2023, Expires: 04/23/2023 [facility] Work Phone: Comment on above: Expected: 02/21/2023 , Expires: 04/23/2023 Start: 02-21-2023 End: 04-23-2023 Basic metabolic 2000 panel - Serum or Plasma BASIC METABOLIC PNL Lab Routine Vitamin D deficiency Expected: 02/21/2023, Expires: 04/23/2023 [facility] Work Phone: Comment on above: Expected: 02/21/2023 , Expires: 04/23/2023 Start: 07-06-2022 Influenza vaccination INFLUENZA (#1) [facility] Start: 05-10-2022 COVID-19 VACCINE (#1) COVID-19 VACCI NE (#1) [facility] Comment on above: Postponed from 04/28 (Declined at this time) Postponed from 10/28 (Declined at this time) Start: 05-10-2022 COVID-19 VACCINE (1) COVID-19 VACCIN E (1) [facility] Comment on above: Postponed from 04/28 (Declined at this time) Start: 1985 COVID-19 VACCINE (#1) COVID-19 VACCI NE (#1) [facility] End: 03-04-2026 HOME SLEEP APNEA TEST (HSAT) HOME SLEEP APNEA TEST (HSAT) Procedures Routine Fatigue, unspecified type Snoring 1 Occurrences starting 03/04/2025 until 03/04/2026 [facility] Comment on above: 1 Occurrences starti ng 03/04/2025 until 03/04/2026 [facility] Immunizations Immunization Date Immunization Notes Care Provider Tricia horton 09-30-2021 influenza, injectabl e, quadrivalent, contains preservative [facility] 09-30-2021 influenza virus vaccine, unspecified formulation Jm Ty MD Work Phone: [facility] 11-08-2020 influenza, injectabl e, quadrivalent, contains preservative [facility] Work Phone: 09-03-2019 influenza, injectabl e, quadrivalent, contains preservative [facility] 08-05-2018 influenza, injectabl e, quadrivalent, preservative free [facility] Work Phone: 03-01-2018 tetanus toxoid, redu gonzalez diphtheria toxoid, and acellular pertussis vaccine, adsorbed [facility] Work Phone: Payers Date Payer Category Payer Self-pay 2022 Medicaid [id number] [address] [facility]ICA[address] [facility] [employer] MEDICAID [id number] 2017-Present [phone] [address] [place] [address] Medicaid [id number] 2017 Medicaid [id number] Unknown [id number] Unknown [id number] Unknown [id number] Unknown [id number] Unknown [id number] Unknown [id number] Unknown [id number] Unknown [id number] Unknown [id number] Social History Date Type Detail Facility Start: 07-18-2018 End: 11-03-2024 Tobacco smoking status NHIS Ex-smoker [facility] Work Phone: Start: 1998 End: 02-03-2023 History of tobacco use Current smoker [facility] Work Phone: Start: 1997 End: 02-03-2023 History of tobacco use Cigarette Smoker [facility] Work Phone: Start: 07-18-2018 End: 03-09-2023 Cigarettes smoked current (pack per day) - Reported 1 [facility] Start: 07-18-2018 End: 11-03-2024 Tobacco use and exposure Smokeless tobacco non-user [facility] Work Phone: Start: 01-06-2022 End: 11-03-2024 Alcohol intake Current non-drinker of alcohol (finding) [facility] Start: 12-05-2020 End: 09-28-2021 History SDOH Alcohol Frequency 2 [facility] Start: 12-05-2020 History SDOH Social Connections [facility] 98 [facility] Start: 12-05-2020 History SDOH Physica l Activity MPS 6 [facility] Start: 12-05-2020 History SDOH Stress 4 [facility] Start: 12-05-2020 End: 09-28-2021 History SDOH Food Worry 1 [facility] Start: 12-05-2020 Education 14 [facility] Start: 1985 Sex Assigned At Male [facility] Start: 01-15-2022 End: 01-25-2022 Exposure to SARS-CoV-2 (event) Unable to assess [facility] Work Phone: Start: 12-03-2021 End: 06-19-2022 Exposure to SARS-CoV-2 (event) Not sure [facility] Start: 11-23-2022 Tobacco smoking stat [facility] Occasional tobacco smoker [facility] Work Phone: Start: 12-05-2020 End: 03-09-2023 Social connection and isolation panel [facility] How often do you att end evangelical or bahai services? Patient refused [facility] Are you now , , , , never or living with a partner? Refused [facility] How often to you hav e a drink containing alcohol? Monthly or less [facility] How many standard drinks containing alcohol do you have on a typical day? 3 or 4 [facility] How often do you hav e 6 or more drinks on 1 occasion? Less than monthly [facility] How hard is it for y ou to pay for the very basics like food, housing, medical care, and heating Not very hard [facility] Do you feel stress - tense, restless, nervous, or anxious, or unable to sleep at night because your mind is troubled all the time - these days [OSQ] Rather much [facility] (I/We) worried wheth er (my/our) food would run out before (I/we) got money to buy more. Never true [facility] In the past 12 month s, was there a time when you were not able to pay the mortgage or rent on time? No [facility] Start: 05-25-2023 Tobacco Comment [facility] age 12[facility] Start: 10-05-2021 Gender identity Identifies as male gender (finding) [facility] Start: 10-05-2021 Sexual orientation Heterosexual (alis myers) [facility] Medical Equipment Procedure Code Equipment Code Equipment Origin al Text Equipment Identifier Dates Lens Slant 7mm 5 D +25.5 Diopter Biconvex Monoflex 12.5mm Iol 1 Piece Uv - [id number] Start: 05-10-2017 Functional Status Date Assessment Result Facility 07-18-2018 Are you deaf, or do you have serious difficulty hearing No 07/18/2018 3:47 PM Jm Marsh MD No [facility] 07-18-2018 Are you blind, or do you have serious difficulty seeing, even when wearing glasses No 07/18/2018 3:47 PM Jm Marsh MD No [facility] 07-18-2018 Do you have serious difficulty walking or climbing stairs No 07/18/2018 3:47 PM Jm Marsh MD No [facility] 07-18-2018 Do you have difficul ty dressing or bathing No 07/18/2018 3:47 PM Jm Marsh MD No [facility] 07-18-2018 Because of a physica l, mental, or emotional condition, do you have difficulty doing errands alone such as visiting a physician's office or shopping No 07/18/2018 3:47 PM Jm Marsh MD No [facility] Mental Status Date Assessment Result Facility 07-18-2018 Because of a physica l, mental, or emotional condition, do you have serious difficulty concentrating, remembering, or making decisions No 07/18/2018 3:47 PM Jm Marsh MD No [facility] Clinical Notes 07-18-2018 to 03-23-2025 Telephone Encounter - Edyta Humphrey RN - 03/18/2025 1:52 PM EDTTelephone Encounter - Edyta Humphrey RN - 03/18/2025 1:52 PM Jm Ann MD - 03/04/2025 1:50 PM EDT Note Date & Type Note Facility 03-23-2025 Note HNO ID: [id number] Author: LAISHA LOMBARDI APRN.FACILITY MAINTENANCE HELPER Service: ? Author Type: Nurse Practitioner Type: Progress Notes Filed: 03/24/2025 11:10 Note Text: March 23, 2025 Standing PSG Orders signed in the last 90 days None Future PSG Orders signed in the last 90 days Ordered Auth. provider HOME SLEEP APNEA TEST (HSAT) [[id number]] 03/04/25 Jm Ty MD Assoc. diagnoses: Fatigue, unspecified type [R53.83], Snoring [R06.83] Q: Indications: A: Obstructive sleep apnea Q: STOP-BANG conditions - Select All That Apply: A: GENDER = male A2: SNORING that is loud or disruptive A3: TIREDNESS, fatigue or sleepiness during the day Q: Current use of supplemental oxygen during sleep period?: A: No All Prior Sleep Studies (past 365 days) 03/04/2025 14:06 Sleep Studies HOME SLEEP APNEA TEST (HSAT) HOME SLEEP APNEA TEST (HSAT) Order Status: Ordered, Future Expires: 03/04/26 BMI Readings from Last 2 Encounters: 03/04/25 : 34.77 kg/m? 11/03/24 : 33.79 kg/m? PAST MEDICAL HISTORY Diagnosis Date Bilateral artificial lens implant Scleral sutured IOL OU Borderline personality disorder (HCC) 10/10/2021 Congenital cataract of both eyes 1984 Dislocated IOL (intraocular lens) 03/13/2017 Dislocated scleral sutured IOL OD Eye disease intraoccular lenses slipping in right eye Generalized anxiety disorder 07/18/2018 [facility] History of substance abuse ([facility]) 07/18/2018 Opiates, and others snorted, no IVDA. Hyperopic astigmatism of both eyes Pseudophakia of both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 APRN.FACILITY MAINTENANCE HELPER [facility] 11/01/2022 3:20 PM Jm Ty MD [facility] Radha Maldonado MD, PGY-2 06/04/2022 5:38 PM documented in this encounter [facility] 05-31-2022 Miscellaneous Notes Pharmacy electronically requesting refill(s): [facility] Last appt: 04/14/22 Upcoming appt: 06/01/22 Pending Prescriptions Disp Refills LAMOTRIGINE 200 MG TABLET 30 tablet 1 Sig: TAKE 1 TABLET BY MOUTH DAILY ARACELY: Yes GABAPENTIN 400 MG CAPSULE 120 capsule 1 Sig: TAKE 1 CAPSULE BY MOUTH FOUR TIMES A DAY ARACELY: Yes Please review and process accordingly. Thank you! Amie Salguero documented in this encounter [facility] 05-31-2022 Miscellaneous Notes Pharmacy electronically requesting refill(s): [facility] Last appt: 04/14/22 Upcoming appt: 06/01/22 Pending Prescriptions Disp Refills VENLAFAXINE ER 150 MG CAPSULE,EXTENDED RELEASE 24 HR 30 capsule 1 Sig: TAKE 1 CAPSULE BY MOUTH DAILY ARACELY: Yes Please review and process accordingly. Thank you! Amie Salguero documented in this encounter [facility] 2022 History of Presen t illness Narrative This note was created using [employer]. SUBJECTIVE Donis Ferrer is a 37 year [...] he was following with our mental health FACILITY MAINTENANCE HELPER. ACTIVE PROBLEM LIST Tobacco Use Disorder Recurrent Major Depression in Partial Remission (Hcc) Dislocated Iol (Intraocular Lens) Vitamin D Deficiency Generalized Anxiety Disorder History of Substance Abuse ([facility]) Obesity, Class II, Bmi 35-39.9 Borderline Personality [...] treatment of novel coronavirus infection (COVID-19). Jm Ty MD documented in this encounter [facility] 04-14-2022 History of Presen t illness [...] which included preparing to see the patient, qqsh-eb-ebsa patient care, completing clinical documentation, and counseling and educating the patient/family/caregiver, ordering medications/labs. Magaly Alvarez APRN.TUCKER April 14, 2022 4:05 PM documented in this encounter [facility] 04-10-2022 Note HNO ID: [id number] Author: Kristen Marrero [facility] Service: Behavioral Health IOP (Intensive Outpatient Program) Author Type: Therapist Type: Progress Notes Filed: 04/10/2022 5:22 PM Note Text: Summary: No Show *This service is provided virtually via [employer]. 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 Pt. Has reported strengths in his logic [...] intake with outpatient provider Prescriber: Magaly Alvarez APRN.FACILITY MAINTENANCE HELPER; 6.. @ 4:00PM Pt has safety plan that was developed at the start of [facility] to refer to as needed. Pt was encouraged to reach out to program staff in the future if interested in additional treatment services and/or return for services. *Co-Facilitated between Kristen Marrero [facility] and Birgit Peralta [facility], [facility] 03-27-2022 Note HNO ID: [id number] Author: Kristen Marrero [facility] Service: Behavioral Health Outpatient Group Author Type: Therapist Type: Progress Notes Filed: 03/27/2022 5:58 PM Note Text: Summary: No Show *This service is provided virtually via [employer]. [facility] (OUTPATIENT PROGRAM) PROGRESS NOTE SERVICE DATE: March 27, 2022. SERVICE TIME: 5:00pm Pt did not show for session. He was outreached via email, reminded of the holiday next week, and of his upcoming discharge from [facility] on 04/10/22. [facility] 03-27-2022 History of Presen t illness Narrative Summary: No Show *This service is provided virtually via [employer]. [facility] (OUTPATIENT PROGRAM) PROGRESS NOTE SERVICE DATE: March 27, 2022. SERVICE TIME: 5:00pm Pt did not show for session. He was outreached via email, reminded of the holiday next week, and of his upcoming discharge from [facility] on 04/10/22. documented in this encounter [facility] 03-20-2022 Note HNO ID: [id number] Author: ALLIE Morgan Service: Behavioral Health Outpatient Group Author Type: Therapist Type: Progress Notes Filed: 03/20/2022 8:45 PM Note Text: Summary: [facility] *This service is provided virtually via [employer]. [facility] (OUTPATIENT PROGRAM) PROGRESS [...] while in program. *Facilitated by: Kaylan Marrero [facility] 03-13-2022 Note HNO ID: [id number] Author: Birgit Peralta [facility] Service: Behavioral Health Outpatient Group Author Type: Therapist Type: Progress Notes Filed: 03/13/2022 6:35 PM Note Text: Summary: [facility] *This service is provided virtually via [employer]. [facility] (OUTPATIENT PROGRAM) PROGRESS [...] as necessary while in program. *Facilitated by: CATHERINE Galindo and [facility] 03-13-2022 History of Presen t illness Narrative Summary: [facility] *This service is provided virtually via [employer]. [facility] (OUTPATIENT PROGRAM) PROGRESS [...] as necessary while in program. *Facilitated by: CATHERINE Galindo and Kaylan NARANJO documented in this encounter [facility] 03-07-2022 Miscellaneous Notes PDMP website checked and validated. All prescriptions have been APPROPRIATELY filled. No suspicious activity was identified. 03/07/2022 by Whitley Veliz APRN.TUCKER SANDRA: 01/02/2022 ativan Last refill: 12/18/2021 QTY: 20 Refills: 2 d2 Last refill: 01/04/2022 QTY: 12 Refills: 0 documented in this encounter [facility] 03-07-2022 Miscellaneous Notes Follow up scheduled for 04/14/2022. Left message for patient to call office to schedule FU and then refills will be sent. Please schedule a follow up appointment and then refills will be sent accordingly. documented in this encounter [facility] 03-06-2022 Note HNO ID: [id number] Author: ALLIE Morgan Service: Behavioral Health Outpatient Group Author Type: Therapist Type: Progress Notes Filed: 03/06/2022 6:22 PM Note Text: *This service is provided virtually via [facility]. [facility] (OUTPATIENT PROGRAM) PROGRESS [...] while in program. *Co-Facilitated between Kristen Marrero [facility] and Birgit Peralta [facility], [facility] 03-06-2022 History of Presen t illness Narrative *This service is provided virtually via [facility]. [facility] (OUTPATIENT PROGRAM) PROGRESS [...] in program. *Co-Facilitated between Kristen KELLEY-S and JOSE A Mccall, ATR documented in this encounter [facility] 02-27-2022 Note HNO ID: [id number] Author: ALLIE Mccall Service: Behavioral Health Outpatient Group Author Type: Therapist Type: Progress Notes Filed: 02/27/2022 6:31 PM Note Text: Summary: [facility] *This service is provided virtually via [employer]. [facility] (OUTPATIENT PROGRAM) PROGRESS [...] while in program. *Facilitated by: Birgit Peralta [facility], ATR and Kaylan Marrero [facility] 02-27-2022 History of Presen t illness Narrative Summary: [facility] *This service is provided virtually via [employer]. [facility] (OUTPATIENT PROGRAM) PROGRESS [...] while in program. *Facilitated by: [facility]eral[facility], [facility] and Kaylan [facility]re[facility] documented in this encounter [facility] 02-20-2022 Note HNO ID: [id number] Author: ALLIE Mccall Service: Behavioral Health Outpatient [...] 20, 2022 TIME: 4:58 PM [facility] 02-20-2022 History of Presen t illness Narrative [...] TIME: 4:58 PM documented in this encounter [facility] 02-13-2022 Note HNO ID: [id number] Author: ALLIE Mccall Service: Behavioral Health IOP (Intensive Outpatient Program) Author Type: Therapist Type: Progress Notes Filed: 02/13/2022 6:24 PM Note Text: Summary: [facility] *This service is provided virtually via [facility]. [facility] (OUTPATIENT PROGRAM) PROGRESS [...] while in program. *Co-Facilitated between Kristen Marrero [facility] and Birgit Peralta [facility], ATR [facility] 02-13-2022 History of Presen t illness Narrative Summary: [facility] *This service is provided virtually via [facility]. [facility] (OUTPATIENT PROGRAM) PROGRESS [...] social media. He noted trying hypnosis via [employer] video last night for assistance in managing/reducing [...] while in program. *Co-Facilitated between [facility]re[facility] and ALLIE Mccall[facility]S, ATR documented in this encounter [facility] 02-10-2022 History of Presen t illness [...] be someone who is going to hate you. He is trying to not let it [...] which included preparing to see the patient, cujn-hk-wqiy patient care, completing clinical documentation, and counseling and educating the patient/family/caregiver, ordering medications/labs. Magaly Alvarez APRN.CNP February 10, 2022 11:04 AM documented in this encounter [facility] 02-06-2022 Note HNO ID: [id number] Author: Kristen Marrero [facility] Service: Behavioral Health IOP (Intensive Outpatient Program) Author Type: Therapist Type: Progress Notes Filed: 02/06/2022 6:28 PM Note Text: Summary: [facility] *This service is provided virtually via [employer]. [facility] (OUTPATIENT PROGRAM) PROGRESS [...] getting into some arguments with people on [employer], which created some stress for him. He noted a desire to not pay attention to things that upset him online, stating that he knows the reality is that there will always be some negativity online. He reported doing a new workout routine. Pt acknowledged that he is feeling grumpy and didn't want to come to group today. Pt was open to wood and wood products labourer's pointing out that he is using opposite [...] while in program. *Facilitated by: Birgit Peralta [facility], ATR and Kaylan Marrero [facility] 02-06-2022 History of Presen t illness Narrative Summary: [facility] *This service is provided virtually via [employer]. [facility] (OUTPATIENT PROGRAM) PROGRESS [...] to group today. Pt was open to wood and wood products labourer's pointing out that he is using opposite [...] while in program. *Facilitated by: Birgit Peralta [facility], ATR and Kaylan Marrero [facility] documented in this encounter [facility] 01-30-2022 Note HNO ID: [id number] Author: ALLIE Morgan Service: Behavioral Health IOP (Intensive Outpatient Program) Author Type: Therapist Type: Progress Notes Filed: 01/30/2022 6:36 PM Note Text: Summary: [facility] *This service is provided virtually via [facility]. [facility] (OUTPATIENT PROGRAM) PROGRESS [...] as necessary while in program. [facility] 01-26-2022 Miscellaneous Notes Pharmacy requesting refill(s): [facility] Last appt: 01/06/22 Upcoming appt: 02/10/22 Pending Prescriptions Disp Refills GABAPENTIN 400 MG CAPSULE 120 capsule 1 Sig: TAKE 1 CAPSULE BY MOUTH FOUR TIMES A DAY ARACELY: Yes Please review and process accordingly. Thank you! documented in this encounter [facility] 01-23-2022 Note HNO ID: [id number] Author: Kristen Marrero [facility] [facility] Service: Behavioral Health Outpatient Group Author Type: Therapist Type: Progress Notes Filed: 01/23/2022 6:20 PM Note Text: *This service is provided virtually via [employer]. DBT SKILLS WEEKLY GROUP (OUTPATIENT PROGRAM) PROGRESS [...] control and they are happening at night now. Pt. Said he is having a hard [...] in program. * Co-Facilitated between: Birgit Peralta, [facility], [facility] and Kristen Marrero [facility] 01-23-2022 History of Presen t illness Narrative *This service is provided virtually via [employer]. DBT SKILLS WEEKLY GROUP (OUTPATIENT PROGRAM) PROGRESS [...] control and they are happening at night now. Pt. Said he is having a hard [...] * Co-Facilitated between: ALLIE Mccall-S, ATR and JOSE A Morgan documented in this encounter [facility] 01-16-2022 Note HNO ID: [id number] Author: ALLIE Morgan Service: Behavioral Health Outpatient Group Author Type: Therapist Type: Progress Notes Filed: 01/16/2022 5:05 PM Note Text: Summary: Cancellation *This service is provided virtually via [employer]. DBT SKILLS WEEKLY GROUP (OUTPATIENT PROGRAM) PROGRESS NOTE SERVICE DATE: 01/16/22 SERVICE TIME: 5:00 Pt cancelled due to not feeling well. Pt plans to return to group next week. [facility] 01-16-2022 History of Presen t illness Narrative Summary: Cancellation *This service is provided virtually via [employer]. DBT SKILLS WEEKLY GROUP (OUTPATIENT PROGRAM) PROGRESS NOTE SERVICE DATE: 01/16/22 SERVICE TIME: 5:00 Pt cancelled due to not feeling well. Pt plans to return to group next week. documented in this encounter [facility] 01-09-2022 Note HNO ID: [id number] Author: ALLIE Morgan Service: Behavioral Health IOP (Intensive Outpatient Program) Author Type: Therapist Type: Progress Notes Filed: 01/09/2022 6:27 PM Note Text: Summary: DBT Skills weekly group *This service is provided virtually via [employer]. DBT SKILLS WEEKLY GROUP (OUTPATIENT PROGRAM) PROGRESS [...] I am so mad that this keeps happening.. Pt. Was open to some prompting questions [...] necessary while in program. *[facility], and Kaylan Marrero [facility] 01-09-2022 History of Presen t illness Narrative Summary: DBT Skills weekly group *This service is provided virtually via [employer]. DBT SKILLS WEEKLY GROUP (OUTPATIENT PROGRAM) PROGRESS [...] I am so mad that this keeps happening.. Pt. Was open to some prompting questions [...] necessary while in program. *Co-Facilitated between Birgit KELLEY, ATR, and Kaylan KELLEY-S documented in this encounter [facility] 01-02-2022 Note O ID: [id number] Author: ALLIE Mccall Service: Behavioral Health IOP (Intensive Outpatient Program) Author Type: Therapist Type: Progress Notes Filed: 01/02/2022 6:28 PM Note Text: Summary: DBT Skills Weekly Group *This service is provided virtually via [employer]. DBT SKILLS WEEKLY GROUP (OUTPATIENT PROGRAM) PROGRESS [...] while in program. *Co-Facilitated between Birgit Peralta [facility], Kaylan ALEXANDER [facility] 01-02-2022 History of Presen t illness Narrative Summary: DBT Skills Weekly Group *This service is provided virtually via [employer]. DBT SKILLS WEEKLY GROUP (OUTPATIENT PROGRAM) PROGRESS [...] while in program. *Co-Facilitated between Birgit Peralta [facility], Kaylan ALEXANDER [facility] documented in this encounter [facility] 12-26-2021 Note HNO ID: [id number] Author: ALLIE Morgan Service: Behavioral Health IOP (Intensive Outpatient Program) Author Type: Therapist Type: Progress Notes Filed: 12/26/2021 6:23 PM Note Text: Summary: DBT Skills Weekly Group *This service is provided virtually via [employer]. DBT SKILLS WEEKLY GROUP (OUTPATIENT PROGRAM) PROGRESS [...] definitely improve it's just a lot of work. Pt noted that people will ask how [...] while in program. *Co-Facilitated between Birgit Peralta [facility], ATR and Kaylan Marrero [facility] 12-26-2021 Note O ID: [id number] Author: Kristen Marrero [facility] Service: Behavioral Health Outpatient Group Author [...] therapist for admission to DBT Skills. With Samantha Mast [facility] Dec 23 With the [facility] Personal strengths: Pt did not answer [...] contact number): Moon Ferrer / Mothers / [phone] [facility] 12-26-2021 History of Presen t illness Narrative Summary: DBT Skills Weekly Group *This service is provided virtually via [employer]. DBT SKILLS WEEKLY GROUP (OUTPATIENT PROGRAM) PROGRESS [...] definitely improve it's just a lot of work. Pt noted that people will ask how [...] while in program. *Co-Facilitated between [facility], [facility] and Kaylan Marrero [facility] documented in this encounter [facility] 12-26-2021 Miscellaneous Notes Summary: DBT Skills [...] for admission to DBT Skills. With ALLIE Geramin Dec 23 With the [facility] Personal strengths: Pt did not answer [...] contact number): Moon Ferrer / Mothers / [phone] documented in this encounter [facility] 12-15-2021 Miscellaneous Notes Okay early refill tomorrow 12/16/21. Left message for [facility] with authorization to fill Ativan sooner. Jorje from [facility] called and reports that Pts medication [...] the med. Please call Jorje back at [phone]. documented in this encounter [facility] 11-23-2021 Note HNO ID: [id number] Author: Alma Loza [facility] Service: Behavioral Health IOP (Intensive Outpatient Program) Author Type: Therapist Type: Progress Notes Filed: 11/23/2021 3:09 PM Note Text: Summary: DBT IOP virtual group *This service is provided virtually via [employer]. IOP (INTENSIVE OUTPATIENT PROGRAM) PROGRESS NOTE SERVICE [...] is safe and not in a 911 situation, pertaining to unjustified fear and anxiety. Process [...] Appears (more content not included)... [facility] 11-22-2021 Note HNO ID: [id number] Author: Mnauela Issa APRN.FACILITY MAINTENANCE HELPER Service: Behavioral Health IOP (Intensive Outpatient Program) Author Type: Nurse Practitioner Type: Progress Notes Filed: 11/22/2021 12:31 PM Note Text: INTENSIVE OUTPATIENT PROGRAM PSYCHIATRIC PROGRESS NOTE VIRTUAL VISIT This is a virtual visit using [employer] video platform. It required patient-provider interaction for the medical decision making as documented below. Persons present: patient and [employer]ET[employer] provider. 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 CC: [...] for up to 90 days. #20/month. - MULTIVIT,CA,[id number] #181 ORAL Take by mouth. No current [...] [facility] - History of substance abuse (HCC) 07/18/2018 Opiates, and others snorted, no IVDA. - Hyperopic astigmatism of both eyes - Pseudophakia of both eyes 1983 - Recurrent major depression in partial remission (HCC) 03/24/2016 [facility]. - Tobacco abuse disorder 01/21/2016 Cigarettes smoke, around 10 a day. - Wears glasses PAST SURGICAL HISTORY Procedure Laterality Date - PAST SURGICAL H (more content not included)... [facility] 11-22-2021 Note HNO ID: [id number] Author: Alma Loza [facility] Service: Behavioral Health IOP (Intensive Outpatient Program) Author Type: Therapist Type: Progress Notes Filed: 11/22/2021 1:08 PM Note Text: Summary: DBT IOP virtual group *This service is provided virtually via [employer]. IOP (INTENSIVE OUTPATIENT PROGRAM) PROGRESS NOTE SERVICE [...] them to do this. Pt met with [facility] for scheduled medication management appointment at 10:46am. [...] thoughts (more content not included)... [facility] 11-21-2021 Note O ID: [id number] Author: Kristen Marrero [facility] Service: Behavioral Health IOP (Intensive Outpatient Program) Author Type: Therapist Type: Progress Notes Filed: 11/21/2021 10:00 AM Note Text: Summary: DBT IOP cancellation IOP (INTENSIVE OUTPATIENT PROGRAM) PROGRESS NOTE SERVICE DATE: 11/21/21 SERVICE TIME: 9AM Pt notified staff on that he'd be out today due to taking his mother to a procedure. [facility] 11-17-2021 Note HNO ID: [id number] Author: ALLIE Crowder Service: Behavioral Health IOP [...] plan to be in on Sunday. SIGNATURE: ALLIE Crowder-S PATIENT NAME: Donis Ferrer DATE: November 17, 2021 TIME: 10:58 AM [facility] 11-16-2021 Note HNO ID: [id number] Author: ALLIE Crowder Service: Behavioral Health IOP [...] 11/22 for follow-up. Pt is established with [facility] prescriber Magaly Alvarez APRN.FACILITY MAINTENANCE HELPER,?next appointment 11/21,?and is ambivalent about engaging in [...] during IOP intake. ? Team members present: Alma Loza, [facility] Kristen Marrero, [facility] Manuela Issa, MSN, [employer], FACILITY MAINTENANCE HELPER, PMHNP-[facility] 11-16-2021 Note HNO ID: [id number] Author: Alma Loza [facility] Service: Behavioral Health IOP (Intensive Outpatient Program) Author Type: Therapist Type: Progress Notes Filed: 11/16/2021 1:43 PM Note Text: Summary: DBT IOP virtual group *This service is provided virtually via [employer]. IOP (INTENSIVE OUTPATIENT PROGRAM) PROGRESS NOTE SERVICE [...] IOP tomorrow 11/17. *Co-Facilitated with: Kristen Marrero [facility] SIGNATURE: L (more content not included)... [facility] 11-15-2021 Note O ID: [id number] Author: Kristen Marrero [facility] Service: Behavioral Health IOP (Intensive Outpatient [...] with her for continuing to eat their [place] ham after two weeks due to concern about bacteria. Pt's goal for today is to meditate. Patient Affirms Safety. Patient reaffirmed Safety Plan and can stay safe from harm. PLAN: Continue IOP and current treatment plan. [facility] 11-14-2021 Note HNO ID: [id number] Author: Kristen Marrero [facility] Service: Behavioral Health IOP (Intensive Outpatient [...] current treatment plan. *Co-Facilitated with Alma Loza [facility] 11-10-2021 Note HNO ID: [id number] Author: Alma Loza [facility] Service: Behavioral Health IOP (Intensive Outpatient [...] to review these skills independently. Pt at [facility] (more content not included)... [facility] 11-10-2021 Note HNO ID: [id number] Author: Alma Loza [facility] Service: Behavioral Health IOP (Intensive Outpatient Program) Author Type: Therapist Type: Progress Notes Filed: 11/10/2021 1:24 PM Note Text: Summary: DBT IOP virtual group *This service is provided virtually via [employer]. ? IOP (INTENSIVE OUTPATIENT PROGRAM) PROGRESS NOTE [...] mood (1=none,?5=extreme) - anger?2,?anxiety?3, depression?3, kenji?3, numb 1;?urges?-?not really; skills -?distraction, deep breathing; substance use - denied; medication questions - denied; sleep -?good; SI/SIB -?passive, ignored. Pt?s check-in centered on completing his self-care [...] different religions and allowing time for deep thoughts. ? Process Therapy Start Time: 11:00 am [...] ident (more content not included)... [facility] 11-09-2021 Note HNO ID: [id number] Author: Alma Loza [facility] Service: Behavioral Health IOP (Intensive Outpatient [...] pattern for Pt as this is his 3rd consecutive Sunday Pt has missed IOP. Pt [...] follow-up scheduled 11/22. Pt is established with [facility] prescriber Magaly Alvarez, [facility].FACILITY MAINTENANCE HELPER,?next appointment 11/21,?and is ambivalent about engaging in individual therapy. ? Team members present: Alma Loza, [facility] Kristen Marrero, [facility] Manuela Issa, MSN, [employer], FACILITY MAINTENANCE HELPER, PMHNP-[facility] 11-09-2021 Note HNO ID: [id number] Author: Alma Loza [facility] Service: Behavioral Health IOP (Intensive Outpatient Program) Author Type: Therapist Type: Progress Notes Filed: 11/09/2021 1:32 PM Note Text: Summary: DBT IOP virtual group *This service is provided virtually via [employer]. IOP (INTENSIVE OUTPATIENT PROGRAM) PROGRESS NOTE SERVICE [...] notin (more content not included)... [facility] 11-08-2021 Note HNO ID: [id number] Author: Manuela Issa APRN.FACILITY MAINTENANCE HELPER Service: Behavioral Health IOP (Intensive Outpatient Program) Author Type: Nurse Practitioner Type: Progress Notes Filed: 11/08/2021 2:10 PM Note Text: INTENSIVE OUTPATIENT PROGRAM PSYCHIATRIC PROGRESS NOTE VIRTUAL VISIT This is a virtual visit using [employer] video platform. It required patient-provider interaction for the medical decision making as documented below. Persons present: patient and [employer] provider. 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 CC: [...] saving up money to move out of [place]. Feels that his mental health would be better if he lived out of the [facility]. Also states that he spoke to someone at the transportation service and was told that if he called and apologized, he would receive service with them again. -Donis reports that he has an appointment with [facility] to receive his COVID injection tomorrow [...] activity was identified. 11/08/2021 by Manuela Issa APRN.FACILITY MAINTENANCE HELPER Current Outpatient Medications on File Prior to [...] for up to 90 days. #20/month. - MULTIVIT,CA,[id number] #181 ORAL Take by mouth. No current facility-administered medications on file prior to encounter. PAST MEDICAL HISTORY Diagnosis Date - Bilateral artificial lens implant Scleral sutured IOL OU - Congenital cataract of both eyes 1983 - Dislocated IOL (intraocular lens) 03/13/2017 Dislocated scleral sutured IOL OD - Eye disease (more content not included)... [facility] 11-08-2021 Note HNO ID: [id number] Author: Alma Loza [facility] Service: Behavioral Health IOP (Intensive Outpatient Program) Author Type: Therapist Type: Progress Notes Filed: 11/08/2021 1:27 PM Note Text: Summary: DBT IOP virtual group *This service is provided virtually via [employer]. ? IOP (INTENSIVE OUTPATIENT PROGRAM) PROGRESS NOTE [...] INTERVENTIONS: (more content not included)... [facility] 11-07-2021 Note HNO ID: [id number] Author: Kristen Marrero [facility] Service: Behavioral Health IOP (Intensive Outpatient Program) Author Type: Therapist Type: Progress Notes Filed: 11/07/2021 1:40 PM Note Text: Summary: DBT IOP No Show IOP (INTENSIVE OUTPATIENT PROGRAM) PROGRESS NOTE SERVICE DATE: 11/07/21 SERVICE TIME: 9AM Pt did not show for IOP. Email sent at 10AM inquiring about his absence, then phone call with voicemail at 11AM. Pt replied to the email at 11:16am: Hi I'll be there tomorrow I'm really sorry [facility] 11-03-2021 Note O ID: [id number] Author: Kristen Marrero [facility] Service: Behavioral Health IOP (Intensive Outpatient [...] none; medication questions - none; sleep - ok; SI/SIB - denied. Pt?s check-in centered on [...] weekend self-care plan included: exercise, puzzle, studying Thai, being mindful to emotions without stuffing them, listening to music to invoke emotions when numb, prayer and meditation and positive self-talk. Pt will be mindful of the urge for negativity/lashing out by being mind (more content not included)... [facility] 11-02-2021 Note HNO ID: [id number] Author: Kristen Marrero [facility] Service: Behavioral Health IOP (Intensive Outpatient [...] medication questions - as prescribed; sleep - ok; SI/SIB - denied. Pt?s check-in centered on: [...] boundary. Pt became upset during session when [facility] intervened when another group member had someone (not a group member) in their background. Pt spoke up, stating that that had occurred to him before and staff com (more content not included)... [facility] 11-02-2021 Note HNO ID: [id number] Author: Kristen Marrero, [facility] Service: Behavioral Health IOP (Intensive Outpatient [...] see program nurse?11/07/21. Pt is established with [facility] prescriber Magaly Alvarez, [employer].FACILITY MAINTENANCE HELPER,?last saw 10/10,?and is currently?ambivalent about engaging in individual therapy. ? Team members present: Kristen Marrero, [facility] Manuela Issa, MSN, [employer] PROP[employer]ETOR, FACILITY MAINTENANCE HELPER, PMHNP- ? [facility] 11-01-2021 Note HNO ID: [id number] Author: Kristen Marrero [facility] Service: Behavioral Health IOP (Intensive Outpatient [...] as prescribed; sleep - okay but not great; SI/SIB - denied. Pt?s check-in related to [...] He (more content not included)... [facility] 10-31-2021 Note O ID: [id number] Author: Kristen Marrero [facility] Service: Behavioral Health IOP (Intensive Outpatient [...] attend IOP tomorrow as scheduled. [facility] 10-27-2021 Note HNO ID: [id number] Author: Alma Loza [facility] Service: Behavioral Health IOP (Intensive Outpatient Program) Author Type: Therapist Type: Progress Notes Filed: 10/27/2021 1:05 PM Note Text: Summary: DBT IOP virtual group *This service is provided virtually via [employer]. ? IOP (INTENSIVE OUTPATIENT PROGRAM) PROGRESS NOTE [...] practicing (more content not included)... [facility] 10-26-2021 Note HNO ID: [id number] Author: Deirdre Rivera [facility] Service: Behavioral Health IOP (Intensive Outpatient [...] see program nurse?11/07/21. Pt is established with [facility] prescriber Magaly Alvarez APRN.FACILITY MAINTENANCE HELPER,?last saw 10/10,?and is currently?ambivalent about engaging in individual therapy. ? Team members present: Alma Loza, [facility] Kristen Marrero, [facility] Manuela Issa, MSN, [employer], FACILITY MAINTENANCE HELPER, PMHNP-BC Deirdre Rivera, [facility] Birgit Peralta [facility], ATR [facility] 10-26-2021 Note HNO ID: [id number] Author: Alma Loza [facility] Service: Behavioral Health IOP (Intensive Outpatient Program) Author Type: Therapist Type: Progress Notes Filed: 10/26/2021 2:34 PM Note Text: Summary: DBT IOP virtual group *This service is provided virtually via [employer]. IOP (INTENSIVE OUTPATIENT PROGRAM) PROGRESS NOTE SERVICE [...] denied; medication questions - denied; sleep - ok; SI/SIB - denied. Pt?s check-in centered on [...] realiz (more content not included)... [facility] 10-25-2021 Note HNO ID: [id number] Author: Alma Loza [facility] Service: Behavioral Health IOP (Intensive Outpatient Program) Author Type: Therapist Type: Progress Notes Filed: 10/25/2021 1:41 PM Note Text: Summary: DBT IOP virtual group *This service is provided virtually via [employer]. ? IOP (INTENSIVE OUTPATIENT PROGRAM) PROGRESS NOTE [...] - denied; medication questions - denied; sleep -?fine; SI/SIB -?just intrusive thoughts. Pt?s check-in centered on missing IOP yesterday [...] program. (more content not included)... [facility] 10-25-2021 History of Presen t illness Narrative Summary: DBT IOP virtual group *This service is provided virtually via [employer]. IOP (INTENSIVE OUTPATIENT PROGRAM) PROGRESS NOTE SERVICE [...] denied; medication questions - denied; sleep - fine; SI/SIB - just intrusive thoughts. Pt s check-in centered on missing IOP [...] complete tomorrow 10/26/21. Generalized Anxiety Disorder Scale (KATEI-7) KATIE - 7 SCORES 08/18/2021 10/12/2021 KATIE-7 [...] of not getting his mental health/medication treatment right. Pt state that he would like to use positive self-talk (nobody's perfect) and opposite action to anger (removing self [...] tomorrow 10/26/21. *Co-Facilitated with: ALLIE Morgan-S SIGNATURE: ALLIE Crowder-Jaskaran PATIENT NAME: Donis Ferrer DATE: October 25, 2021 TIME: 8:38 AM documented in this encounter [facility] 10-24-2021 Note HNO ID: [id number] Author: ALLIE Morgan Service: Behavioral Health IOP [...] stressful day and lost some sleep. SIGNATURE: Krisetn Marrero [facility] PATIENT NAME: Donis Ferrer DATE: October 24, 2021 TIME: 8:45 AM [facility] 10-20-2021 Note HNO ID: [id number] Author: Alma Loza [facility] Service: Behavioral Health IOP (Intensive Outpatient Program) Author Type: Therapist Type: Progress Notes Filed: 10/20/2021 1:44 PM Note Text: Summary: DBT IOP virtual group *This service is provided virtually via [employer]. IOP (INTENSIVE OUTPATIENT PROGRAM) PROGRESS NOTE SERVICE [...] denied; medication questions - denied; sleep - ok; SI/SIB - denied. Pt?s check-in centered on [...] by:?mindfulness I will care for my emotions by:?be on watch I will care for my spirit by:?prayer I will care for my relationships by:?reach out to friend I will manage urges and vulnerabilities of?worrying?by:?mindful breathing PLAN: Continue IOP and current treatment plan. Pt plans to attend IOP next on Sunday10/24/21. *Co-Facilitated with: ALLIE Morgan-S SIGNATURE: ALLIE Crowder-S PATIENT NAME: Donis Ferrer DATE: October 20, 2021 TIME: 12:31 PM [facility] 10-20-2021 Note HNO ID: [id number] Author: ALLIE Crowder Service: Behavioral Health IOP (Intensive Outpatient Program) Author Type: Therapist Type: Plan of Care Filed: 10/20/2021 12:54 PM Note Text: Summary: DBT IOP Weekly [...] update on patient progress summarized:? Pt attended?DBT [facility] 4?of 4 days. Pt was presented information [...] see program nurse?11/07/21. Pt is established with [facility] prescriber Magaly Alvarez, [employer] PROP[employer].FACILITY MAINTENANCE HELPER,?last saw 10/10,?and is currently?ambivalent about engaging in individual therapy. ? Team members present: Alma Loza, [facility] Kristen Marrero, [facility] Manuela Issa, MSN, [employer] PROP[employer]ETOR, FACILITY MAINTENANCE HELPER, PMHNP-[facility] 10-19-2021 Note HNO ID: [id number] Author: Alma Loza [facility] Service: Behavioral Health IOP (Intensive Outpatient Program) Author Type: Therapist Type: Progress Notes Filed: 10/19/2021 3:15 PM Note Text: Summary: DBT IOP virtual group *This service is provided virtually via [employer]. IOP (INTENSIVE OUTPATIENT PROGRAM) PROGRESS NOTE SERVICE [...] tomorro (more content not included)... [facility] 10-18-2021 Note O ID: [id number] Author: Kristen Marrero [facility] Service: Behavioral Health IOP (Intensive Outpatient [...] 18, 2021 TIME: 7:30 AM [facility] 10-17-2021 Note HNO ID: [id number] Author: ALLIE Morgan Service: Behavioral Health IOP [...] S (more content not included)... [facility] 10-13-2021 Note HNO ID: [id number] Author: Alma Loza LPCC Service: Behavioral Health IOP (Intensive Outpatient Program) [...] of happiness, but I don't really get that. Pt has passive SI/wishes to be , [...] Pt completed an in-person IOP program at [facility] earlier this year. Pt stated that his [...] other way. Pt was treated twice at [facility] and once at [facility]. Patient Goals for Treatment: I just [...] emotions and my panic levels. Or anger. Vba Programmer Goal/Discharge Criteria: PHQ-9, KATIE-7, and REX inventories will indicate a reduction in severity of symptoms, and an increase in mind (more content not included)... [facility] 10-13-2021 Note HNO ID: [id number] Author: Alma Loza [facility] Service: Behavioral Health IOP (Intensive Outpatient [...] program nurse 11/07/21. Pt is established with [facility] prescriber Magaly Alvarez APRN.FACILITY MAINTENANCE HELPER, last saw 10/10, and is currently ambivalent about engaging in individual therapy. Team members present: Alma Loza [facility] Kristen Marrero, [facility] Manuela Issa, MSN, [employer]ET[employer], FACILITY MAINTENANCE HELPER, PMHNP-BC Deirdre Rivera, [facility] Birgit Plazascjani [facility], [facility] 10-13-2021 Note HNO ID: [id number] Author: Alma Loza [facility] Service: Behavioral Health IOP (Intensive Outpatient Program) Author Type: Therapist Type: Progress Notes Filed: 10/13/2021 12:46 PM Note Text: Summary: DBT IOP virtual group *This service is provided virtually via [facility]. IOP (INTENSIVE OUTPATIENT PROGRAM) PROGRESS NOTE SERVICE [...] program staff after group ended at 12:06pm: 'Hever Dykes, We're sorry that you weren't able to reconnect to group. If you have any questions about completing the skills and mood diary card starting today and continuing over the weekend, please let us know. Have a great weekend, we will plan on seeing you on Sunday, Galo' *Co-facilitated with Kristen Marrero [facility] SIGNATURE: Alma Loza [facility] PATIENT NAME: Donis Ferrer DATE: October 13, 2021 TIME: 12:25 PM [facility] 09-21-2021 Miscellaneous Notes Patient is extremely upset and has questions about his recent medication, not helping with mood swings and basically has questions about it. He said he has no rashes and would like to know how long it will take for his medication to work. Please call patient. documented in this encounter [facility] 12-04-2019 History of Past i llness Narrative Problem Noted Date Resolved Date Obesity, Class II, BMI 35-39.9 12/04/2019 0 06/19/2022 Obesity, Class I, BMI 30-34.9 07/18/2018 Abnormal weight gain 01/21/2016 07/18/2018 Overview: Was 190 lbs when he was working, at [employer]. After stopping work he gained 50 pounds [...] 190 lbs when he was working, at [employer]. After stopping work he gained 50 pounds [...] of this encounter (statuses as of 06/19/2022) [facility]2020 History of Past illness Narrative* Problem Noted Date Resolved Date Obesity, Class II, BMI 35-39.9 12/04/2019 0 06/19/2022 Obesity, Class I, BMI 30-34.9 07/18/2018 Abnormal weight gain 01/21/2016 07/18/2018 Overview: Was 190 lbs when he was working, at [employer]. After stopping work he gained 50 pounds [...] 190 lbs when he was working, at [employer]. After stopping work he gained 50 pounds [...] of this encounter (statuses as of 06/20/2022) [facility] History of Past illness Narrative* Problem Noted Date Resolved Date Obesity, Class II, BMI 35-39.9 12/04/2019 0 06/19/2022 Obesity, Class I, BMI 30-34.9 07/18/2018 Abnormal weight gain 01/21/2016 07/18/2018 Overview: Was 190 lbs when he was working, at [employer]. After stopping work he gained 50 pounds [...] 190 lbs when he was working, at [employer]. After stopping work he gained 50 pounds [...] of this encounter (statuses as of 06/28/2022) [facility] History of Past illness Narrative* Problem Noted Date Resolved Date Obesity, Class II, BMI 35-39.9 12/04/2019 0 06/19/2022 Obesity, Class I, BMI 30-34.9 07/18/2018 Abnormal weight gain 01/21/2016 07/18/2018 Overview: Was 190 lbs when he was working, at [employer]. After stopping work he gained 50 pounds [...] 190 lbs when he was working, at [employer]. After stopping work he gained 50 pounds [...] of this encounter (statuses as of 06/30/2022) [facility] History of Past illness Narrative* Problem Noted Date Resolved Date Obesity, Class II, BMI 35-39.9 12/04/2019 0 06/19/2022 Obesity, Class I, BMI 30-34.9 07/18/2018 Abnormal weight gain 01/21/2016 07/18/2018 Overview: Was 190 lbs when he was working, at [employer]. After stopping work he gained 50 pounds [...] 190 lbs when he was working, at [employer]. After stopping work he gained 50 pounds [...] of this encounter (statuses as of 07/15/2022) [facility] History of Past illness Narrative* Problem Noted Date Resolved Date Obesity, Class II, BMI 35-39.9 12/04/2019 0 06/19/2022 Obesity, Class I, BMI 30-34.9 07/18/2018 Abnormal weight gain 01/21/2016 07/18/2018 Overview: Was 190 lbs when he was working, at [employer]. After stopping work he gained 50 pounds [...] 190 lbs when he was working, at [employer]. After stopping work he gained 50 pounds [...] of this encounter (statuses as of 07/18/2022) [facility] History of Past illness Narrative* Problem Noted Date Resolved Date Obesity, Class II, BMI 35-39.9 12/04/2019 0 06/19/2022 Obesity, Class I, BMI 30-34.9 07/18/2018 Abnormal weight gain 01/21/2016 07/18/2018 Overview: Was 190 lbs when he was working, at [employer]. After stopping work he gained 50 pounds [...] 190 lbs when he was working, at [employer]. After stopping work he gained 50 pounds [...] of this encounter (statuses as of 08/08/2022) [facility] History of Past illness Narrative* Problem Noted Date Resolved Date Obesity, Class II, BMI 35-39.9 12/04/2019 0 06/19/2022 Obesity, Class I, BMI 30-34.9 07/18/2018 Abnormal weight gain 01/21/2016 07/18/2018 Overview: Was 190 lbs when he was working, at [employer]. After stopping work he gained 50 pounds [...] 190 lbs when he was working, at [employer]. After stopping work he gained 50 pounds [...] of this encounter (statuses as of 09/01/2022) [facility] History of Past illness Narrative* Problem Noted Date Resolved Date Obesity, Class II, BMI 35-39.9 12/04/2019 0 06/19/2022 Obesity, Class I, BMI 30-34.9 07/18/2018 Abnormal weight gain 01/21/2016 07/18/2018 Overview: Was 190 lbs when he was working, at [employer]. After stopping work he gained 50 pounds [...] 190 lbs when he was working, at [employer]. After stopping work he gained 50 pounds [...] of this encounter (statuses as of 09/11/2022) [facility] History of Past illness Narrative* Problem Noted Date Resolved Date Obesity, Class II, BMI 35-39.9 12/04/2019 0 06/19/2022 Obesity, Class I, BMI 30-34.9 07/18/2018 Abnormal weight gain 01/21/2016 07/18/2018 Overview: Was 190 lbs when he was working, at [employer]. After stopping work he gained 50 pounds [...] 190 lbs when he was working, at [employer]. After stopping work he gained 50 pounds [...] of this encounter (statuses as of 10/29/2022) [facility] History of Past illness Narrative* Problem Noted Date Resolved Date Obesity, Class II, BMI 35-39.9 12/04/2019 0 06/19/2022 Obesity, Class I, BMI 30-34.9 07/18/2018 Abnormal weight gain 01/21/2016 07/18/2018 Overview: Was 190 lbs when he was working, at [employer]. After stopping work he gained 50 pounds [...] 190 lbs when he was working, at [employer]. After stopping work he gained 50 pounds [...] of this encounter (statuses as of 11/09/2022) [facility] History of Past illness Narrative* Problem Noted Date Resolved Date Obesity, Class II, BMI 35-39.9 12/04/2019 0 06/19/2022 Obesity, Class I, BMI 30-34.9 07/18/2018 Abnormal weight gain 01/21/2016 07/18/2018 Overview: Was 190 lbs when he was working, at [employer]. After stopping work he gained 50 pounds [...] 190 lbs when he was working, at [employer]. After stopping work he gained 50 pounds [...] of this encounter (statuses as of 11/23/2022) [facility] History of Past illness Narrative* Problem Noted Date Resolved Date Obesity, Class II, BMI 35-39.9 12/04/2019 0 06/19/2022 Obesity, Class I, BMI 30-34.9 07/18/2018 Abnormal weight gain 01/21/2016 07/18/2018 Overview: Was 190 lbs when he was working, at [employer]. After stopping work he gained 50 pounds [...] 190 lbs when he was working, at [employer]. After stopping work he gained 50 pounds [...] of this encounter (statuses as of 12/11/2022) [facility] History of Past illness Narrative* Problem Noted Date Resolved Date Obesity, Class II, BMI 35-39.9 12/04/2019 0 06/19/2022 Obesity, Class I, BMI 30-34.9 07/18/2018 Abnormal weight gain 01/21/2016 07/18/2018 Overview: Was 190 lbs when he was working, at [employer]. After stopping work he gained 50 pounds [...] 190 lbs when he was working, at [employer]. After stopping work he gained 50 pounds [...] of this encounter (statuses as of 02/12/2023) [facility] History of Past illness Narrative* Problem Noted Date Resolved Date Obesity, Class II, BMI 35-39.9 12/04/2019 0 06/19/2022 Obesity, Class I, BMI 30-34.9 07/18/2018 Abnormal weight gain 01/21/2016 07/18/2018 Overview: Was 190 lbs when he was working, at [employer]. After stopping work he gained 50 pounds [...] 190 lbs when he was working, at [employer]. After stopping work he gained 50 pounds [...] of this encounter (statuses as of 02/13/2023) [facility] History of Past illness Narrative* Problem Noted Date Resolved Date Obesity, Class II, BMI 35-39.9 12/04/2019 0 06/19/2022 Obesity, Class I, BMI 30-34.9 07/18/2018 Abnormal weight gain 01/21/2016 07/18/2018 Overview: Was 190 lbs when he was working, at [employer]. After stopping work he gained 50 pounds [...] 190 lbs when he was working, at [employer]. After stopping work he gained 50 pounds [...] of this encounter (statuses as of 02/14/2023) [facility] History of Past illness Narrative* Problem Noted Date Resolved Date Obesity, Class II, BMI 35-39.9 12/04/2019 0 06/19/2022 Obesity, Class I, BMI 30-34.9 07/18/2018 Abnormal weight gain 01/21/2016 07/18/2018 Overview: Was 190 lbs when he was working, at [employer]. After stopping work he gained 50 pounds [...] 190 lbs when he was working, at [employer]. After stopping work he gained 50 pounds [...] of this encounter (statuses as of 02/21/2023) [facility] History of Past illness Narrative* Problem Noted Date Resolved Date Obesity, Class II, BMI 35-39.9 12/04/2019 0 06/19/2022 Obesity, Class I, BMI 30-34.9 07/18/2018 Abnormal weight gain 01/21/2016 07/18/2018 Overview: Was 190 lbs when he was working, at [employer]. After stopping work he gained 50 pounds [...] 190 lbs when he was working, at [employer]. After stopping work he gained 50 pounds [...] of this encounter (statuses as of 02/23/2023) [facility] History of Past illness Narrative* Problem Noted Date Resolved Date Obesity, Class II, BMI 35-39.9 12/04/2019 0 06/19/2022 Obesity, Class I, BMI 30-34.9 07/18/2018 Abnormal weight gain 01/21/2016 07/18/2018 Overview: Was 190 lbs when he was working, at [employer]. After stopping work he gained 50 pounds [...] 190 lbs when he was working, at [employer]. After stopping work he gained 50 pounds [...] of this encounter (statuses as of 03/15/2023) [facility] History of Past illness Narrative* Problem Noted Date Resolved Date Obesity, Class II, BMI 35-39.9 12/04/2019 0 06/19/2022 Obesity, Class I, BMI 30-34.9 07/18/2018 Abnormal weight gain 01/21/2016 07/18/2018 Overview: Was 190 lbs when he was working, at [employer]. After stopping work he gained 50 pounds [...] 190 lbs when he was working, at [employer]. After stopping work he gained 50 pounds [...] of this encounter (statuses as of 05/10/2023) [facility] History of Past illness Narrative* Problem Noted Date Diagnosed Date Resolved Date Obesity, Class II, BMI 35-39.9 12/04/2019 06/19/2022 Obesity, Class I, BMI 30-34.9 07/18/2018 12/04/2019 Abnormal weight gain 01/21/2016 018 Overview: Was 190 lbs when he was working, at [employer]. After stopping work he gained 50 pounds [...] 190 lbs when he was working, at [employer]. After stopping work he gained 50 pounds [...] of this encounter (statuses as of 07/17/2023) [facility] History of Past illness Narrative* Problem Noted Date Diagnosed Date Resolved Date Obesity, Class II, BMI 35-39.9 12/04/2019 06/19/2022 Obesity, Class I, BMI 30-34.9 07/18/2018 12/04/2019 Abnormal weight gain 01/21/2016 018 Overview: Was 190 lbs when he was working, at [employer]. After stopping work he gained 50 pounds [...] 190 lbs when he was working, at [employer]. After stopping work he gained 50 pounds [...] of this encounter (statuses as of 07/28/2023) [facility] History of Past illness Narrative* Problem Noted Date Diagnosed Date Resolved Date Obesity, Class II, BMI 35-39.9 12/04/2019 06/19/2022 Obesity, Class I, BMI 30-34.9 07/18/2018 12/04/2019 Abnormal weight gain 01/21/2016 018 Overview: Was 190 lbs when he was working, at [employer]. After stopping work he gained 50 pounds [...] 190 lbs when he was working, at [employer]. After stopping work he gained 50 pounds [...] of this encounter (statuses as of 08/04/2023) [facility] History of Past illness Narrative* Problem Noted Date Diagnosed Date Resolved Date Obesity, Class II, BMI 35-39.9 12/04/2019 06/19/2022 Obesity, Class I, BMI 30-34.9 07/18/2018 12/04/2019 Abnormal weight gain 01/21/2016 018 Overview: Was 190 lbs when he was working, at [employer]. After stopping work he gained 50 pounds [...] 190 lbs when he was working, at [employer]. After stopping work he gained 50 pounds [...] of this encounter (statuses as of 08/04/2023) [facility] History of Past illness Narrative* Problem Noted Date Diagnosed Date Resolved Date Obesity, Class II, BMI 35-39.9 12/04/2019 06/19/2022 Obesity, Class I, BMI 30-34.9 07/18/2018 12/04/2019 Abnormal weight gain 01/21/2016 018 Overview: Was 190 lbs when he was working, at [employer]. After stopping work he gained 50 pounds [...] 190 lbs when he was working, at [employer]. After stopping work he gained 50 pounds [...] of this encounter (statuses as of 08/14/2023) [facility] History of Past illness Narrative* Problem Noted Date Diagnosed Date Resolved Date Obesity, Class II, BMI 35-39.9 12/04/2019 06/19/2022 Obesity, Class I, BMI 30-34.9 07/18/2018 12/04/2019 Abnormal weight gain 01/21/2016 018 Overview: Was 190 lbs when he was working, at [employer]. After stopping work he gained 50 pounds [...] 190 lbs when he was working, at [employer]. After stopping work he gained 50 pounds [...] of this encounter (statuses as of 08/28/2023) [facility] History of Past illness Narrative* Problem Noted Date Diagnosed Date Resolved Date Obesity, Class II, BMI 35-39.9 12/04/2019 06/19/2022 Obesity, Class I, BMI 30-34.9 07/18/2018 12/04/2019 Abnormal weight gain 01/21/2016 018 Overview: Was 190 lbs when he was working, at [employer]. After stopping work he gained 50 pounds [...] 190 lbs when he was working, at [employer]. After stopping work he gained 50 pounds [...] as of this encounter (statuses as of 12/20/2023) [facility] History of Past illness Narrative* Problem Noted Date Diagnosed Date Resolved Date Obesity, Class II, BMI 35-39.9 12/04/2019 06/19/2022 Obesity, Class I, BMI 30-34.9 07/18/2018 12/04/2019 Abnormal weight gain 01/21/2016 018 Overview: Was 190 lbs when he was working, at [employer]. After stopping work he gained 50 pounds [...] 190 lbs when he was working, at [employer]. After stopping work he gained 50 pounds [...] as of this encounter (statuses as of 02/14/2024) [facility] History of Past illness Narrative* Problem Noted Date Resolved Date Obesity, Class I, BMI 30-34.9 07/18/2018 Abnormal weight gain 01/21/2016 07/18/2018 Overview: Was 190 lbs when he was working, at [employer]. After stopping work he gained 50 pounds [...] 190 lbs when he was working, at [employer]. After stopping work he gained 50 pounds [...] of this encounter (statuses as of 01/26/2022) [facility] History of Past illness Narrative* Problem Noted Date Resolved Date Obesity, Class I, BMI 30-34.9 07/18/2018 Abnormal weight gain 01/21/2016 07/18/2018 Overview: Was 190 lbs when he was working, at [employer]. After stopping work he gained 50 pounds [...] 190 lbs when he was working, at [employer]. After stopping work he gained 50 pounds [...] of this encounter (statuses as of 12/11/2021) [facility] History of Past illness Narrative* Problem Noted Date Resolved Date Obesity, Class I, BMI 30-34.9 07/18/2018 Abnormal weight gain 01/21/2016 07/18/2018 Overview: Was 190 lbs when he was working, at [employer]. After stopping work he gained 50 pounds [...] 190 lbs when he was working, at [employer]. After stopping work he gained 50 pounds [...] of this encounter (statuses as of 02/11/2022) [facility] History of Past illness Narrative* Problem Noted Date Resolved Date Obesity, Class I, BMI 30-34.9 07/18/2018 Abnormal weight gain 01/21/2016 07/18/2018 Overview: Was 190 lbs when he was working, at [employer]. After stopping work he gained 50 pounds [...] 190 lbs when he was working, at [employer]. After stopping work he gained 50 pounds [...] of this encounter (statuses as of 02/18/2022) [facility] History of Past illness Narrative* Problem Noted Date Resolved Date Obesity, Class I, BMI 30-34.9 07/18/2018 Abnormal weight gain 01/21/2016 07/18/2018 Overview: Was 190 lbs when he was working, at [employer]. After stopping work he gained 50 pounds [...] 190 lbs when he was working, at [employer]. After stopping work he gained 50 pounds [...] of this encounter (statuses as of 02/20/2022) [facility] History of Past illness Narrative* Problem Noted Date Resolved Date Obesity, Class I, BMI 30-34.9 07/18/2018 Abnormal weight gain 01/21/2016 07/18/2018 Overview: Was 190 lbs when he was working, at [employer]. After stopping work he gained 50 pounds [...] 190 lbs when he was working, at [employer]. After stopping work he gained 50 pounds [...] of this encounter (statuses as of 02/23/2022) [facility] History of Past illness Narrative* Problem Noted Date Resolved Date Obesity, Class I, BMI 30-34.9 07/18/2018 Abnormal weight gain 01/21/2016 07/18/2018 Overview: Was 190 lbs when he was working, at [employer]. After stopping work he gained 50 pounds [...] 190 lbs when he was working, at [employer]. After stopping work he gained 50 pounds [...] of this encounter (statuses as of 02/25/2022) [facility] History of Past illness Narrative* Problem Noted Date Resolved Date Obesity, Class I, BMI 30-34.9 07/18/2018 Abnormal weight gain 01/21/2016 07/18/2018 Overview: Was 190 lbs when he was working, at [employer]. After stopping work he gained 50 pounds [...] 190 lbs when he was working, at [employer]. After stopping work he gained 50 pounds [...] of this encounter (statuses as of 03/04/2022) [facility] History of Past illness Narrative* Problem Noted Date Resolved Date Obesity, Class I, BMI 30-34.9 07/18/2018 Abnormal weight gain 01/21/2016 07/18/2018 Overview: Was 190 lbs when he was working, at [employer]. After stopping work he gained 50 pounds [...] 190 lbs when he was working, at [employer]. After stopping work he gained 50 pounds [...] of this encounter (statuses as of 03/07/2022) [facility] History of Past illness Narrative* Problem Noted Date Resolved Date Obesity, Class I, BMI 30-34.9 07/18/2018 Abnormal weight gain 01/21/2016 07/18/2018 Overview: Was 190 lbs when he was working, at [employer]. After stopping work he gained 50 pounds [...] 190 lbs when he was working, at [employer]. After stopping work he gained 50 pounds [...] of this encounter (statuses as of 03/07/2022) [facility] History of Past illness Narrative* Problem Noted Date Resolved Date Obesity, Class I, BMI 30-34.9 07/18/2018 Abnormal weight gain 01/21/2016 07/18/2018 Overview: Was 190 lbs when he was working, at [employer]. After stopping work he gained 50 pounds [...] 190 lbs when he was working, at [employer]. After stopping work he gained 50 pounds [...] of this encounter (statuses as of 03/11/2022) [facility] History of Past illness Narrative* Problem Noted Date Resolved Date Obesity, Class I, BMI 30-34.9 07/18/2018 Abnormal weight gain 01/21/2016 07/18/2018 Overview: Was 190 lbs when he was working, at [employer]. After stopping work he gained 50 pounds [...] 190 lbs when he was working, at [employer]. After stopping work he gained 50 pounds [...] of this encounter (statuses as of 03/25/2022) [facility] History of Past illness Narrative* Problem Noted Date Resolved Date Obesity, Class I, BMI 30-34.9 07/18/2018 Abnormal weight gain 01/21/2016 07/18/2018 Overview: Was 190 lbs when he was working, at [employer]. After stopping work he gained 50 pounds [...] 190 lbs when he was working, at [employer]. After stopping work he gained 50 pounds [...] of this encounter (statuses as of 04/01/2022) [facility] History of Past illness Narrative* Problem Noted Date Resolved Date Obesity, Class I, BMI 30-34.9 07/18/2018 Abnormal weight gain 01/21/2016 07/18/2018 Overview: Was 190 lbs when he was working, at [employer]. After stopping work he gained 50 pounds [...] 190 lbs when he was working, at [employer]. After stopping work he gained 50 pounds [...] of this encounter (statuses as of 04/08/2022) [facility] History of Past illness Narrative* Problem Noted Date Resolved Date Obesity, Class I, BMI 30-34.9 07/18/2018 Abnormal weight gain 01/21/2016 07/18/2018 Overview: Was 190 lbs when he was working, at [employer]. After stopping work he gained 50 pounds [...] 190 lbs when he was working, at [employer]. After stopping work he gained 50 pounds [...] of this encounter (statuses as of 04/15/2022) [facility]09-13-2018 History of Past illness Narrative* Problem Noted Date Resolved Date Obesity, Class I, BMI 30-34.9 07/18/2018 Abnormal weight gain 01/21/2016 07/18/2018 Overview: Was 190 lbs when he was working, at [employer]. After stopping work he gained 50 pounds [...] 190 lbs when he was working, at [employer]. After stopping work he gained 50 pounds [...] of this encounter (statuses as of 04/20/2022) [facility] History of Past illness Narrative* Problem Noted Date Resolved Date Obesity, Class I, BMI 30-34.9 07/18/2018 Abnormal weight gain 01/21/2016 07/18/2018 Overview: Was 190 lbs when he was working, at [employer]. After stopping work he gained 50 pounds [...] 190 lbs when he was working, at [employer]. After stopping work he gained 50 pounds [...] of this encounter (statuses as of 04/22/2022) [facility] History of Past illness Narrative* Problem Noted Date Resolved Date Obesity, Class I, BMI 30-34.9 07/18/2018 Abnormal weight gain 01/21/2016 07/18/2018 Overview: Was 190 lbs when he was working, at [employer]. After stopping work he gained 50 pounds [...] 190 lbs when he was working, at [employer]. After stopping work he gained 50 pounds [...] of this encounter (statuses as of 04/29/2022) [facility] History of Past illness Narrative* Problem Noted Date Resolved Date Obesity, Class I, BMI 30-34.9 07/18/2018 Abnormal weight gain 01/21/2016 07/18/2018 Overview: Was 190 lbs when he was working, at [employer]. After stopping work he gained 50 pounds [...] 190 lbs when he was working, at [employer]. After stopping work he gained 50 pounds [...] of this encounter (statuses as of 04/30/2022) [facility] History of Past illness Narrative* Problem Noted Date Resolved Date Obesity, Class I, BMI 30-34.9 07/18/2018 Abnormal weight gain 01/21/2016 07/18/2018 Overview: Was 190 lbs when he was working, at [employer]. After stopping work he gained 50 pounds [...] 190 lbs when he was working, at [employer]. After stopping work he gained 50 pounds [...] of this encounter (statuses as of 05/13/2022) [facility] History of Past illness Narrative* Problem Noted Date Resolved Date Obesity, Class I, BMI 30-34.9 07/18/2018 Abnormal weight gain 01/21/2016 07/18/2018 Overview: Was 190 lbs when he was working, at [employer]. After stopping work he gained 50 pounds [...] 190 lbs when he was working, at [employer]. After stopping work he gained 50 pounds [...] of this encounter (statuses as of 05/31/2022) [facility] History of Past illness Narrative* Problem Noted Date Resolved Date Obesity, Class I, BMI 30-34.9 07/18/2018 Abnormal weight gain 01/21/2016 07/18/2018 Overview: Was 190 lbs when he was working, at [employer]. After stopping work he gained 50 pounds [...] 190 lbs when he was working, at [employer]. After stopping work he gained 50 pounds [...] of this encounter (statuses as of 05/31/2022) [facility] History of Past illness Narrative* Problem Noted Date Resolved Date Obesity, Class I, BMI 30-34.9 07/18/2018 Abnormal weight gain 01/21/2016 07/18/2018 Overview: Was 190 lbs when he was working, at [employer]. After stopping work he gained 50 pounds [...] 190 lbs when he was working, at [employer]. After stopping work he gained 50 pounds [...] of this encounter (statuses as of 06/04/2022) [facility] History of Past illness Narrative* Problem Noted Date Resolved Date Obesity, Class I, BMI 30-34.9 07/18/2018 Abnormal weight gain 01/21/2016 07/18/2018 Overview: Was 190 lbs when he was working, at [employer]. After stopping work he gained 50 pounds [...] 190 lbs when he was working, at [employer]. After stopping work he gained 50 pounds [...] of this encounter (statuses as of 06/07/2022) [facility] History of Past illness Narrative* Problem Noted Date Resolved Date Obesity, Class I, BMI 30-34.9 07/18/2018 Abnormal weight gain 01/21/2016 07/18/2018 Overview: Was 190 lbs when he was working, at [employer]. After stopping work he gained 50 pounds [...] 190 lbs when he was working, at [employer]. After stopping work he gained 50 pounds [...] of this encounter (statuses as of 06/08/2022) [facility] Major depressive disorder, recurrent episode, moderate (HCC)- Primary Major depressive disorder, recurrent episode, moderate KATIE (generalized anxiety disorder) Generalized anxiety disorder Borderline personality disorder (HCC) Borderline personality disorder [facility] Generalized [facility] Diagnosis KATIE (generalized anxiety disorder)- Primary Generalized anxiety disorder Major depressive disorder, recurrent episode, moderate (HCC) Major depressive disorder, recurrent episode, moderate Borderline personality disorder (HCC) Borderline personality disorder [facility] Diagnosis Viral upper respiratory tract infection- Primary Acute upper respiratory infections of unspecified site Generalized anxiety disorder [facility] Generalized anxiety disorder- Primary [facility] Diagnosis Generalized anxiety disorder- Primary Obesity, Class I, BMI 30-34.9 Obesity, unspecified [facility] Diagnosis Generalized anxiety disorder- Primary Major depressive disorder, recurrent episode, moderate (HCC) Major depressive disorder, recurrent episode, moderate Borderline personality disorder (HCC) Borderline personality disorder documented in this encounter [facility]* Diagnosis Generalized anxiety disorder- Primary Major depressive disorder, recurrent episode, moderate (HCC) Major depressive disorder, recurrent episode, moderate Borderline personality disorder (HCC) Borderline personality disorder documented in this encounter [facility] note* Diagnosis APPOINTMENT CANCELLED- Primary documented in this encounter [facility] note* Diagnosis Borderline personality disorder (HCC)- Primary Borderline personality disorder Generalized anxiety disorder Recurrent major depressive disorder, in partial remission (HCC) documented in this encounter [facility] note* Diagnosis Generalized anxiety disorder- Primary Borderline personality disorder (HCC) Borderline personality disorder Recurrent major depressive disorder, in partial remission (HCC) documented in this encounter [facility] note* Diagnosis Tobacco use disorder- Primary Vitamin D deficiency Unspecified vitamin D deficiency documented in this encounter [facility] note* Diagnosis Generalized anxiety disorder documented in this encounter [facility] note* Diagnosis Generalized anxiety disorder- Primary Borderline personality disorder (HCC) Borderline personality disorder Major depressive disorder, recurrent episode, moderate (HCC) Major depressive disorder, recurrent episode, moderate documented in this encounter [facility] note* Diagnosis Vitamin D deficiency Unspecified vitamin D deficiency documented in this encounter [facility] note* Diagnosis Generalized anxiety disorder documented in this encounter [facility] note* Diagnosis NO SHOW- Primary documented in this encounter [facility] note* Diagnosis Obesity, Class I, BMI 30-34.9- Primary Obesity, unspecified Vitamin D deficiency Unspecified vitamin D deficiency documented in this encounter [facility] note* Diagnosis NO SHOW- Primary documented in this encounter [facility] note* Diagnosis Generalized anxiety disorder documented in this encounter [facility] note* Diagnosis Vitamin D deficiency Unspecified vitamin D deficiency documented in this encounter [facility] note* Diagnosis APPOINTMENT CANCELLED- Primary documented in this encounter [facility] note* Diagnosis Generalized anxiety disorder Recurrent major depression in partial remission (HCC) Major depressive disorder, recurrent episode, in partial or unspecified remission documented in this encounter [facility] note* Diagnosis Recurrent major depression in partial remission (HCC)- Primary Major depressive disorder, recurrent episode, in partial or unspecified remission Generalized anxiety disorder History of substance abuse (HCC) Other, mixed, or unspecified nondependent drug abuse, unspecified [facility] Vitamin D deficiency Unspecified vitamin D deficiency [facility] Diagnosis Major depressive disorder, recurrent, severe without psychotic features (HCC)- Primary Major depressive disorder, recurrent episode, severe, without mention of psychotic behavior Abnormal weight gain Tobacco abuse disorder Tobacco use disorder Routine health maintenance Routine general medical examination at a health care facility Recurrent major depression in partial remission (HCC)- Primary Major depressive disorder, recurrent episode, in partial or unspecified remission Vitamin D deficiency Unspecified vitamin D deficiency Generalized anxiety disorder Borderline personality disorder (HCC) Borderline personality disorder Tobacco use disorder [facility] Diagnosis Major depressive disorder, recurrent, severe without psychotic features (HCC)- Primary Major depressive disorder, recurrent episode, severe, without mention of psychotic behavior Abnormal weight gain Tobacco abuse disorder Tobacco use disorder Routine health maintenance Routine general medical examination at a health care facility Recurrent major depression in partial remission (HCC) Major depressive disorder, recurrent episode, in partial or unspecified remission Vitamin D deficiency Unspecified vitamin D deficiency Generalized anxiety disorder Tobacco use disorder [facility] Diagnosis Major depressive disorder, recurrent, severe without psychotic features (HCC)- Primary Major depressive disorder, recurrent episode, severe, without mention of psychotic behavior Abnormal weight gain Tobacco abuse disorder Tobacco use disorder Routine health maintenance Routine general medical examination at a health care facility Recurrent major depression in partial remission (HCC) Major depressive disorder, recurrent episode, in partial or unspecified remission Generalized anxiety disorder Borderline personality disorder (HCC) Borderline personality disorder [facility] Diagnosis Major depressive disorder, recurrent, severe without psychotic features (HCC)- Primary Major depressive disorder, recurrent episode, severe, without mention of psychotic behavior Abnormal weight gain Tobacco abuse disorder Tobacco use disorder Routine health maintenance Routine general medical examination at a health care facility Recurrent major depression in partial remission- Primary Major depressive disorder, recurrent episode, in partial or unspecified remission Generalized anxiety disorder Borderline personality disorder (HCC) Borderline personality disorder Vitamin D deficiency Unspecified vitamin D deficiency Fatigue, unspecified type Snoring Other dyspnea and respiratory abnormality [facility] Diagnosis Major depressive disorder, recurrent, severe without psychotic features (HCC)- Primary Major depressive disorder, recurrent episode, severe, without mention of psychotic behavior Abnormal weight gain Tobacco abuse disorder Tobacco use disorder Routine health maintenance Routine general medical examination at a health care facility Vitamin D deficiency Unspecified vitamin D deficiency documented in this encounter [facility] Summary Purpose Family History No Family History Records FoundNo Family History Records FoundNo Family History Records FoundNo Family History Records Found Advance Directives No Advanced Directives Records FoundDocuments on File Type Date Recorded 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 [id number] 1984ADMIT 07/05/2018DISCH 07/10/2018DISCHARGE SUMMARYREASON FOR ADMISSIONDonis Ferrer is a 33-year-old, young, single, psychiatrically-disabledCaucasian male who was admitted with history of constant fear of , chestpain, palpitation and feeling that he would be better off .Prior to this admission, he was receiving outpatient treatment at [facility] in [place], [place], where he had reduced Lexapro to [...] COVID-19 Confirmed 2022 2022 8:51 PM EDT Reason for Referral Specialty Diagnoses / Procedures Referred By Contmesha t Referred To Contact Diagnoses Recurrent major depression in partial remission (HCC) Generalized anxiety disorder Borderline personality disorder (HCC) Procedures CONSULT TO PSYCHIATRY OFFICE/OUTPATIENT [facility] 60 MINUTES Jm Ty MD [address] [facility] [place] [address] Referral ID Status Reason Start Date Expiration Date Visits Requested Visits Authorized [id number] Pending Review PCP Requested Referral 4 11/03/2025 1 1 Additional Source Comments (unrecognized sect ion and content) No Status Records FoundNo Status Records FoundNo Status Records FoundNo Status Records Found INFORMATION SOURCE (unrecogn ized section and content) DATE CREATED AUTHOR 10/13/2018 [facility] DATE CREATED AUTHOR AUTHOR'S ORGANIZ ATION 04/11/2022 [facility] DATE CREATED AUTHOR AUTHOR'S ORGANIZ ATION 03/25/2025 [facility] DATE CREATED AUTHOR AUTHOR'S ORGANIZ ATION 06/19/2025 [facility] Source Comments (unrecognize d section and content) In the event this informatio n is protected by the Federal Confidentiality of Alcohol and Drug Abuse Patient Records regulations: The Federal rules restrict any use of the information to criminally investigate or prosecute any alcohol or drug abuse patient.[facility] the event this information is protected by the Federal Confidentiality of Alcohol and Drug Abuse Patient Records regulations: The Federal rules restrict any use of the information to criminally investigate or prosecute any alcohol or drug abuse patient.[facility] the event this information is protected by the Federal Confidentiality of Alcohol and Drug Abuse Patient Records regulations: The Federal rules restrict any use of the information to criminally investigate or prosecute any alcohol or drug abuse patient.[facility]In the event this information is protected by the Federal Confidentiality of Alcohol and Drug Abuse Patient Records regulations: The Federal rules restrict any use of the information to criminally investigate or prosecute any alcohol or drug abuse patient.[facility] the event this information is protected by the Federal Confidentiality of Alcohol and Drug Abuse Patient Records regulations: The Federal rules restrict any use of the information to criminally investigate or prosecute any alcohol or drug abuse patient.[facility]In the event this information is protected by the Federal Confidentiality of Alcohol and Drug Abuse Patient Records regulations: The Federal rules restrict any use of the information to criminally investigate or prosecute any alcohol or drug abuse patient.[facility]In the event this information is protected by the Federal Confidentiality of Alcohol and Drug Abuse Patient Records regulations: The Federal rules restrict any use of the information to criminally investigate or prosecute any alcohol or drug abuse patient.[facility]In the event this information is protected by the Federal Confidentiality of Alcohol and Drug Abuse Patient Records regulations: The Federal rules restrict any use of the information to criminally investigate or prosecute any alcohol or drug abuse patient.[facility]In the event this information is protected by the Federal Confidentiality of Alcohol and Drug Abuse Patient Records regulations: The Federal rules restrict any use of the information to criminally investigate or prosecute any alcohol or drug abuse patient.[facility]In the event this information is protected by the Federal Confidentiality of Alcohol and Drug Abuse Patient Records regulations: The Federal rules restrict any use of the information to criminally investigate or prosecute any alcohol or drug abuse patient.[facility] HospitalIn the event this information is protected by the Federal Confidentiality of Alcohol and Drug Abuse Patient Records regulations: The Federal rules restrict any use of the information to criminally investigate or prosecute any alcohol or drug abuse patient.[facility] HospitalIn the event this information is protected by the Federal Confidentiality of Alcohol and Drug Abuse Patient Records regulations: The Federal rules restrict any use of the information to criminally investigate or prosecute any alcohol or drug abuse patient.[facility]In the event this information is protected by the Federal Confidentiality of Alcohol and Drug Abuse Patient Records regulations: The Federal rules restrict any use of the information to criminally investigate or prosecute any alcohol or drug abuse patient.[facility]In the event this information is protected by the Federal Confidentiality of Alcohol and Drug Abuse Patient Records regulations: The Federal rules restrict any use of the information to criminally investigate or prosecute any alcohol or drug abuse patient.[facility] HospitalIn the event this information is protected by the Federal Confidentiality of Alcohol and Drug Abuse Patient Records regulations: The Federal rules restrict any use of the information to criminally investigate or prosecute any alcohol or drug abuse patient.[facility] HospitalIn the event this information is protected by the Federal Confidentiality of Alcohol and Drug Abuse Patient Records regulations: The Federal rules restrict any use of the information to criminally investigate or prosecute any alcohol or drug abuse patient.[facility] HospitalIn the event this information is protected by the Federal Confidentiality of Alcohol and Drug Abuse Patient Records regulations: The Federal rules restrict any use of the information to criminally investigate or prosecute any alcohol or drug abuse patient.[facility] HospitalIn the event this information is protected by the Federal Confidentiality of Alcohol and Drug Abuse Patient Records regulations: The Federal rules restrict any use of the information to criminally investigate or prosecute any alcohol or drug abuse patient.[facility] HospitalIn the event this information is protected by the Federal Confidentiality of Alcohol and Drug Abuse Patient Records regulations: The Federal rules restrict any use of the information to criminally investigate or prosecute any alcohol or drug abuse patient.[facility] HospitalIn the event this information is protected by the Federal Confidentiality of Alcohol and Drug Abuse Patient Records regulations: The Federal rules restrict any use of the information to criminally investigate or prosecute any alcohol or drug abuse patient.[facility] HospitalIn the event this information is protected by the Federal Confidentiality of Alcohol and Drug Abuse Patient Records regulations: The Federal rules restrict any use of the information to criminally investigate or prosecute any alcohol or drug abuse patient.[facility] HospitalIn the event this information is protected by the Federal Confidentiality of Alcohol and Drug Abuse Patient Records regulations: The Federal rules restrict any use of the information to criminally investigate or prosecute any alcohol or drug abuse patient.[facility] HospitalIn the event this information is protected by the Federal Confidentiality of Alcohol and Drug Abuse Patient Records regulations: The Federal rules restrict any use of the information to criminally investigate or prosecute any alcohol or drug abuse patient.[facility] HospitalIn the event this information is protected by the Federal Confidentiality of Alcohol and Drug Abuse Patient Records regulations: The Federal rules restrict any use of the information to criminally investigate or prosecute any alcohol or drug abuse patient.[facility] HospitalIn the event this information is protected by the Federal Confidentiality of Alcohol and Drug Abuse Patient Records regulations: The Federal rules restrict any use of the information to criminally investigate or prosecute any alcohol or drug abuse patient.[facility] HospitalIn the event this information is protected by the Federal Confidentiality of Alcohol and Drug Abuse Patient Records regulations: The Federal rules restrict any use of the information to criminally investigate or prosecute any alcohol or drug abuse patient.[facility] HospitalIn the event this information is protected by the Federal Confidentiality of Alcohol and Drug Abuse Patient Records regulations: The Federal rules restrict any use of the information to criminally investigate or prosecute any alcohol or drug abuse patient.[facility] HospitalIn the event this information is protected by the Federal Confidentiality of Alcohol and Drug Abuse Patient Records regulations: The Federal rules restrict any use of the information to criminally investigate or prosecute any alcohol or drug abuse patient.[facility] HospitalIn the event this information is protected by the Federal Confidentiality of Alcohol and Drug Abuse Patient Records regulations: The Federal rules restrict any use of the information to criminally investigate or prosecute any alcohol or drug abuse patient.[facility] HospitalIn the event this information is protected by the Federal Confidentiality of Alcohol and Drug Abuse Patient Records regulations: The Federal rules restrict any use of the information to criminally investigate or prosecute any alcohol or drug abuse patient.[facility] HospitalIn the event this information is protected by the Federal Confidentiality of Alcohol and Drug Abuse Patient Records regulations: The Federal rules restrict any use of the information to criminally investigate or prosecute any alcohol or drug abuse patient.[facility] HospitalIn the event this information is protected by the Federal Confidentiality of Alcohol and Drug Abuse Patient Records regulations: The Federal rules restrict any use of the information to criminally investigate or prosecute any alcohol or drug abuse patient.[facility] HospitalIn the event this information is protected by the Federal Confidentiality of Alcohol and Drug Abuse Patient Records regulations: The Federal rules restrict any use of the information to criminally investigate or prosecute any alcohol or drug abuse patient.[facility] HospitalIn the event this information is protected by the Federal Confidentiality of Alcohol and Drug Abuse Patient Records regulations: The Federal rules restrict any use of the information to criminally investigate or prosecute any alcohol or drug abuse patient.[facility] HospitalIn the event this information is protected by the Federal Confidentiality of Alcohol and Drug Abuse Patient Records regulations: The Federal rules restrict any use of the information to criminally investigate or prosecute any alcohol or drug abuse patient.[facility] HospitalIn the event this information is protected by the Federal Confidentiality of Alcohol and Drug Abuse Patient Records regulations: The Federal rules restrict any use of the information to criminally investigate or prosecute any alcohol or drug abuse patient.[facility] HospitalIn the event this information is protected by the Federal Confidentiality of Alcohol and Drug Abuse Patient Records regulations: The Federal rules restrict any use of the information to criminally investigate or prosecute any alcohol or drug abuse patient.[facility] HospitalIn the event this information is protected by the Federal Confidentiality of Alcohol and Drug Abuse Patient Records regulations: The Federal rules restrict any use of the information to criminally investigate or prosecute any alcohol or drug abuse patient.[facility] HospitalIn the event this information is protected by the Federal Confidentiality of Alcohol and Drug Abuse Patient Records regulations: The Federal rules restrict any use of the information to criminally investigate or prosecute any alcohol or drug abuse patient.[facility] HospitalIn the event this information is protected by the Federal Confidentiality of Alcohol and Drug Abuse Patient Records regulations: The Federal rules restrict any use of the information to criminally investigate or prosecute any alcohol or drug abuse patient.[facility] HospitalIn the event this information is protected by the Federal Confidentiality of Alcohol and Drug Abuse Patient Records regulations: The Federal rules restrict any use of the information to criminally investigate or prosecute any alcohol or drug abuse patient.[facility] HospitalIn the event this information is protected by the Federal Confidentiality of Alcohol and Drug Abuse Patient Records regulations: The Federal rules restrict any use of the information to criminally investigate or prosecute any alcohol or drug abuse patient.[facility] HospitalIn the event this information is protected by the Federal Confidentiality of Alcohol and Drug Abuse Patient Records regulations: The Federal rules restrict any use of the information to criminally investigate or prosecute any alcohol or drug abuse patient.[facility] HospitalIn the event this information is protected by the Federal Confidentiality of Alcohol and Drug Abuse Patient Records regulations: The Federal rules restrict any use of the information to criminally investigate or prosecute any alcohol or drug abuse patient.[facility] HospitalIn the event this information is protected by the Federal Confidentiality of Alcohol and Drug Abuse Patient Records regulations: The Federal rules restrict any use of the information to criminally investigate or prosecute any alcohol or drug abuse patient.[facility] HospitalIn the event this information is protected by the Federal Confidentiality of Alcohol and Drug Abuse Patient Records regulations: The Federal rules restrict any use of the information to criminally investigate or prosecute any alcohol or drug abuse patient.[facility] HospitalIn the event this information is protected by the Federal Confidentiality of Alcohol and Drug Abuse Patient Records regulations: The Federal rules restrict any use of the information to criminally investigate or prosecute any alcohol or drug abuse patient.[facility] HospitalIn the event this information is protected by the Federal Confidentiality of Alcohol and Drug Abuse Patient Records regulations: The Federal rules restrict any use of the information to criminally investigate or prosecute any alcohol or drug abuse patient.[facility] HospitalIn the event this information is protected by the Federal Confidentiality of Alcohol and Drug Abuse Patient Records regulations: The Federal rules restrict any use of the information to criminally investigate or prosecute any alcohol or drug abuse patient.[facility] HospitalIn the event this information is protected by the Federal Confidentiality of Alcohol and Drug Abuse Patient Records regulations: The Federal rules restrict any use of the information to criminally investigate or prosecute any alcohol or drug abuse patient.[facility] HospitalIn the event this information is protected by the Federal Confidentiality of Alcohol and Drug Abuse Patient Records regulations: The Federal rules restrict any use of the information to criminally investigate or prosecute any alcohol or drug abuse patient.[facility] HospitalIn the event this information is protected by the Federal Confidentiality of Alcohol and Drug Abuse Patient Records regulations: The Federal rules restrict any use of the information to criminally investigate or prosecute any alcohol or drug abuse patient.[facility] HospitalIn the event this information is protected by the Federal Confidentiality of Alcohol and Drug Abuse Patient Records regulations: The Federal rules restrict any use of the information to criminally investigate or prosecute any alcohol or drug abuse patient.[facility] HospitalIn the event this information is protected by the Federal Confidentiality of Alcohol and Drug Abuse Patient Records regulations: The Federal rules restrict any use of the information to criminally investigate or prosecute any alcohol or drug abuse patient.[facility] HospitalIn the event this information is protected by the Federal Confidentiality of Alcohol and Drug Abuse Patient Records regulations: The Federal rules restrict any use of the information to criminally investigate or prosecute any alcohol or drug abuse patient.[facility] HospitalIn the event this information is protected by the Federal Confidentiality of Alcohol and Drug Abuse Patient Records regulations: The Federal rules restrict any use of the information to criminally investigate or prosecute any alcohol or drug abuse patient.[facility] HospitalIn the event this information is protected by the Federal Confidentiality of Alcohol and Drug Abuse Patient Records regulations: The Federal rules restrict any use of the information to criminally investigate or prosecute any alcohol or drug abuse patient.[facility] HospitalIn the event this information is protected by the Federal Confidentiality of Alcohol and Drug Abuse Patient Records regulations: The Federal rules restrict any use of the information to criminally investigate or prosecute any alcohol or drug abuse patient.[facility] HospitalIn the event this information is protected by the Federal Confidentiality of Alcohol and Drug Abuse Patient Records regulations: The Federal rules restrict any use of the information to criminally investigate or prosecute any alcohol or drug abuse patient.[facility] HospitalIn the event this information is protected by the Federal Confidentiality of Alcohol and Drug Abuse Patient Records regulations: The Federal rules restrict any use of the information to criminally investigate or prosecute any alcohol or drug abuse patient.[facility] HospitalIn the event this information is protected by the Federal Confidentiality of Alcohol and Drug Abuse Patient Records regulations: The Federal rules restrict any use of the information to criminally investigate or prosecute any alcohol or drug abuse patient.[facility] HospitalIn the event this information is protected by the Federal Confidentiality of Alcohol and Drug Abuse Patient Records regulations: The Federal rules restrict any use of the information to criminally investigate or prosecute any alcohol or drug abuse patient.[facility] HospitalIn the event this information is protected by the Federal Confidentiality of Alcohol and Drug Abuse Patient Records regulations: The Federal rules restrict any use of the information to criminally investigate or prosecute any alcohol or drug abuse patient.[facility] HospitalIn the event this information is protected by the Federal Confidentiality of Alcohol and Drug Abuse Patient Records regulations: The Federal rules restrict any use of the information to criminally investigate or prosecute any alcohol or drug abuse patient.[facility] HospitalIn the event this information is protected by the Federal Confidentiality of Alcohol and Drug Abuse Patient Records regulations: The Federal rules restrict any use of the information to criminally investigate or prosecute any alcohol or drug abuse patient.[facility] HospitalIn the event this information is protected by the Federal Confidentiality of Alcohol and Drug Abuse Patient Records regulations: The Federal rules restrict any use of the information to criminally investigate or prosecute any alcohol or drug abuse patient.[facility] Reason for Visit (unrecogniz ed section and content) Reason Comments Refill Request Specialty Diagnoses / Procedures Referred By Rosemary hanley Referred To Contact ADULT PSYCHIATRY Diagnoses New DBT-IOP Procedures VIDEO PSYC/PSYL GRP (ZOOM) Manuela Issa, TAXI PROPRIETOR.FACILITY MAINTENANCE HELPER [address] [place] [address] [facility] Adult [address] [place] [address] Referral ID Status Reason Start Date Expiration Date Visits Re quested Visits Authorized [id number] Closed 10/13/2021 11/04/2021 99 99 Specialty Diagnoses / Procedures Referred By Contac t Referred To Contact ADULT PSYCHIATRY Diagnoses New DBT-Skills Procedures VIDEO PSYC/PSYL GRP (ZOOM) Manuela Issa, TAXI PROPRIETOR.FACILITY MAINTENANCE HELPER [address] [place] [address] [address] [place] [address] Referral ID Status Reason Start Date Expiration Date V isits Requested Visits Authorized [id number] Authorized 12/26/2021 11/04/2022 99 99 Reason Comments Medication Problem Reason Comments Depression Anxiety Follow Up Specialty Diagnoses / Procedures Referred By Contac t Referred To Contact Psychiatry / ADULT PSYCHIATRY Diagnoses 4 week follow up Procedures VIDEO PSYC/PSYL EST Magaly Alvarez, TAXI PROPRIETOR.FACILITY MAINTENANCE HELPER [address] [place] [address] Magaly Alvarez, TAXI PROPRIETOR.FACILITY MAINTENANCE HELPER [address] [place] [address] Referral ID Status Reason Start Date Expiration Date V isits Requested Visits Authorized [id number] Pending Review 02/10/2022 05/11/2022 1 1 Reason [...] Reason Onset Date Comments Refill Request 08/27/2023 Reason Comments ED Follow-up Reason Comments mother calling with what is going on wit h her son Reason Onset Date Comments Refill Request 06/04/2024 Reason Comments Release Of Medical Records Reason Comments Medication Follow-up Reason Comments Medication Problem Call placed to [facility] explaining that Magaly hasn't seen patient since 2022, will have to have PCP make medication changes. I have no availability to make his OV earlier at this time. [facility] voices understanding. Maday Tesfaye LPN Reason Comments Patient Update Appointment Reason Onset Date Comments Refill Request 12/22/2024 Reason Onset Date Comments Refill Request 12/25/2024 Reason Comments 4 month follow-up Reason Onset Date Comments Refill Request 03/18/2025 Care Teams (unrecognized sec tion and content) Annealing Furnace Operator Relationship Specialty Start Date End Date Jm Ty MD [address] [facility] [place] [address] PCP - General Internal Medicine 07/18/18 Annealing Furnace Operator Relationship Specialty Start Date End Date Jm Ty MD [address] [facility] [place] [address] PCP - General Internal Medicine 07/18/18 Annealing Furnace Operator Relationship Specialty Start Date End Date Jm Ty MD [address] [facility] [place] [address] PCP - General Internal Medicine 07/18/18 Annealing Furnace Operator Relationship Specialty Start Date End Date Jm Ty MD [address] [facility] [place] [address] PCP - General Internal Medicine 07/18/18 Annealing Furnace Operator Relationship Specialty Start Date End Date Jm Ty MD [address] [facility] [place] [address] PCP - General Internal Medicine 07/18/18 Annealing Furnace Operator Relationship Specialty Start Date End Date Jm Ty MD [address] [facility] [place] [address] PCP - General Internal Medicine 07/18/18 Annealing Furnace Operator Relationship Specialty Start Date End Date Jm Ty MD [address] [facility] [place] [address] PCP - General Internal Medicine 07/18/18 Annealing Furnace Operator Relationship Specialty Start Date End Date Jm Ty MD [address] [facility] [place] [address] PCP - General Internal Medicine 07/18/18 Annealing Furnace Operator Relationship Specialty Start Date End Date Jm Ty MD [address] [facility] [place] [address] PCP - General Internal Medicine 07/18/18 Annealing Furnace Operator Relationship Specialty Start Date End Date Jm Ty MD [address] [facility] [place] [address] PCP - General Internal Medicine 07/18/18 Annealing Furnace Operator Relationship Specialty Start Date End Date Jm Ty MD [address] [facility] [place] [address] PCP - General Internal Medicine 07/18/18 Annealing Furnace Operator Relationship Specialty Start Date End Date Jm Ty MD [address] [facility] [place] [address] PCP - General Internal Medicine 07/18/18 Annealing Furnace Operator Relationship Specialty Start Date End Date Jm Ty MD [address] [facility] [place] [address] PCP - General Internal Medicine 07/18/18 Annealing Furnace Operator Relationship Specialty Start Date End Date Jm Ty MD [address] [facility] [place] [address] PCP - General Internal Medicine 07/18/18 Annealing Furnace Operator Relationship Specialty Start Date End Date Jm Ty MD [address] [facility] [place] [address] PCP - General Internal Medicine 07/18/18 Annealing Furnace Operator Relationship Specialty Start Date End Date Jm Ty MD [address] [facility] [place] [address] PCP - General Internal Medicine 07/18/18 Annealing Furnace Operator Relationship Specialty Start Date End Date Jm Ty MD [address] [facility] [place] [address] PCP - General Internal Medicine 07/18/18 Annealing Furnace Operator Relationship Specialty Start Date End Date Jm Ty MD [address] [facility] [place] [address] PCP - General Internal Medicine 07/18/18 Annealing Furnace Operator Relationship Specialty Start Date End Date Jm Ty MD [address] [facility] [place] [address] PCP - General Internal Medicine 07/18/18 Annealing Furnace Operator Relationship Specialty Start Date End Date Jm Ty MD [address] [facility] [place] [address] PCP - General Internal Medicine 07/18/18 Annealing Furnace Operator Relationship Specialty Start Date End Date Jm Ty MD [address] [facility] [place] [address] PCP - General Internal Medicine 07/18/18 Annealing Furnace Operator Relationship Specialty Start Date End Date Jm Ty MD [address] [facility] [place] [address] PCP - General Internal Medicine 07/18/18 Annealing Furnace Operator Relationship Specialty Start Date End Date Jm Ty MD [address] [facility] [place] [address] PCP - General Internal Medicine 07/18/18 Annealing Furnace Operator Relationship Specialty Start Date End Date Jm Ty MD [address] [facility] [place] [address] PCP - General Internal Medicine 07/18/18 Annealing Furnace Operator Relationship Specialty Start Date End Date Jm Ty MD [address] [facility] [place] [address] PCP - General Internal Medicine 07/18/18 Annealing Furnace Operator Relationship Specialty Start Date End Date Jm yT MD [address] [place] [address] PCP - General Internal Medicine 07/18/18 Annealing Furnace Operator Relationship Specialty Start Date End Date Jm Ty MD [address] [place] [address] PCP - General Internal Medicine 07/18/18 Annealing Furnace Operator Relationship Specialty Start Date End Date Jm Ty MD [address] [place] [address] PCP - General Internal Medicine 07/18/18 Annealing Furnace Operator Relationship Specialty Start Date End Date Jm Ty MD [address] [place] [address] PCP - General Internal Medicine 07/18/18 Annealing Furnace Operator Relationship Specialty Start Date End Date Jm Ty MD [address] [place] [address] PCP - General Internal Medicine 07/18/18 Annealing Furnace Operator Relationship Specialty Start Date End Date Jm Ty MD [address] [place] [address] PCP - General Internal Medicine 07/18/18 Annealing Furnace Operator Relationship Specialty Start Date End Date Jm Ty MD [address] [place] [address] PCP - General Internal Medicine 07/18/18 Whitley Mcduffie, TAXI PROPRIETOR.FACILITY MAINTENANCE HELPER [address] [place] [address] Intensive Care Nurse Internal Medicine 10/13/24 Annealing Furnace Operator Relationship Specialty Start Date End Date Jm Ty MD [address] [place] [address] PCP - General Internal Medicine 07/18/18 Whitley Mcduffie, TAXI PROPRIETOR.FACILITY MAINTENANCE HELPER [address] [place] [address] Intensive Care Nurse Internal Medicine 10/13/24 Annealing Furnace Operator Relationship Specialty Start Date End Date Jm Ty MD [address] [place] [address] PCP - General Internal Medicine 07/18/18 Whitley Mcduffie, TAXI PROPRIETOR.FACILITY MAINTENANCE HELPER [address] [place] [address] Intensive Care Nurse Internal Medicine 10/13/24 Annealing Furnace Operator Relationship Specialty Start Date End Date Jm Ty MD [address] [place] [address] PCP - General Internal Medicine 07/18/18 Whitley Mcduffie, TAXI PROPRIETOR.FACILITY MAINTENANCE HELPER [address] [place] [address] Intensive Care Nurse Internal Medicine 10/13/24 Annealing Furnace Operator Relationship Specialty Start Date End Date Jm Ty MD [address] [place] [address] PCP - General Internal Medicine 07/18/18 Whitley Mcduffie, TAXI PROPRIETOR.FACILITY MAINTENANCE HELPER [address] [place] [address] Intensive Care Nurse Internal Medicine 10/13/24 Annealing Furnace Operator Relationship Specialty Start Date End Date Jm Ty MD [address] [place] [address] PCP - General Internal Medicine 07/18/18 Whitley Mcduffie, TAXI PROPRIETOR.FACILITY MAINTENANCE HELPER [address] [place] [address] Intensive Care Nurse Internal Medicine 10/13/24 Annealing Furnace Operator Relationship Specialty Start Date End Date Jm Ty MD [address] [place] [address] PCP - General Internal Medicine 07/18/18 Whitley Mcduffie, TAXI PROPRIETOR.FACILITY MAINTENANCE HELPER [address] [place] [address] Intensive Care Nurse Internal Medicine 10/13/24 Annealing Furnace Operator Relationship Specialty Start Date End Date Jm Ty MD [address] [place] [address] PCP - General Internal Medicine 07/18/18 Whitley Mcduffie, TAXI PROPRIETOR.FACILITY MAINTENANCE HELPER [address] [place] [address] Intensive Care Nurse Internal Medicine 10/13/24 FOR RECORDS PERTAINING TO PATIENTS WHO ARE [...] BE BASED ON THE PRIMARY CLINICAL RECORDS. [facility] [employer] [facility]. provides no warranty or guarantee of the accuracy or completeness of information in this document.
[2025-06-27 03:26] LABS: Barbiturate Urine NEGATIVE (< 200 ng/mL); Benzodiazepine Urine NEGATIVE (< 200 ng/mL); PCP Urine NEGATIVE (< 25 ng/mL); THC Urine NEGATIVE (< 50 ng/mL)
[2025-06-27 03:27] LABS: Alcohol, Blood (Medical)-Serum < 10.1 mg/dL (<=10.0)
[2025-06-27 03:28] LABS: AST(SGOT) 14 U/L (<=37); Alanine Aminotransfer ALT/SGPT 15 U/L (<=46); Albumin, Serum 4.2 g/dL (3.5-5.0); Alkaline Phosphatase 56 U/L (40-129); Anion Gap 12 (5-15); BUN 7 mg/dL (4-19); BUN/Creat Ratio 6.5 RATIO (10-20); Calcium,Total 8.7 mg/dL (7.6-11.0); Carbon Dioxide 24.1 mmol/L (21.0-32.0); Chloride 102 mmol/L (98-108); Estimated Creatinine Clearance 118.76 ml/min (50-250); Globulin 2.2 g/dL (2.2-4.2); Glucose 114 mg/dL (70-99); Potassium 3.4 mmol/L (3.3-5.1)
[2025-06-27 03:38] VITALS: BP 146/99; PULSE 96; RESP 18; O2SAT 99
[2025-06-27 03:40] LABS: Urine Bilirubin Dipstick 1 mg/dL (Negative)
[2025-06-27 03:52] LABS: Squamous Epithelial Cells - UA 0-5 SEEN /hpf (0-5)
--- NOTE | 2025-06-27 04:11 | ED.RN ---
This RN enters room to give pt his scheduled medication and pt yells I'M SORRY. I TRIED TO KILL THE WHOLE UNIVERSE. Pt also states that he already took his Zyprexa and did not want any other medication at this time. Pt talking to self at bedside but is no longer yelling. Pt denies needing anything at this time. Security notified incase of escalation. Pt laying in bed, appearing more calm at this time.
[2025-06-27 07:05] VITALS: BP 128/81; PULSE 81; RESP 18; O2SAT 98
--- NOTE | 2025-06-27 10:11 | ED.RN ---
Pt sleeping, morning meds held until waking pt for lunch
--- NOTE | 2025-06-27 10:20 | PCA ---
PT ACCEPTED AT [facility] DR. MATA N2N [phone] OPT1
[2025-06-27] MEDS: Cholecalciferol (VIT D3) 25 MCG TABLET (1,000 UNITS) PO (11:08)
[2025-06-27] MEDS: buPROPion (XL) 300 MG TABLET.XL PO (11:08)
[2025-06-27 13:00] VITALS: RESP 18
--- NOTE | 2025-06-27 13:26 | ED.RN ---
Pt refusing to put on hospital gown, threw it on the floor, stomped on it yelling I can be naked, I can be naked
[2025-06-27 13:51] VITALS: BP 148/73; PULSE 92; RESP 18; TEMP 36.8; O2SAT 99
--- NOTE | 2025-06-29 17:54 | CM.ED ---
Social Work Lesly from [facility] called and requested a copy of the pink slip be sent to [facility]. SW contacted medical records, received a copy and faxed to [facility]. Manuela Lawrence, CONTAINER REPAIRER, COURSE INSTRUCTOR
== END 2025-06-27 13:52 | disposition short-term general hospital (02) ==
LOC: ED 03:22
PROVIDERS: Emergency Provider Emergency Medicine; PCP Internal Medicine; Visit Provider Emergency Medicine
DX: F23 Brief psychotic disorder (principal); F19.11 Other psychoactive substance abuse, in remission; R45.851 Suicidal ideations; F32.A Depression, unspecified; F41.9 Anxiety disorder, unspecified; F17.290 Nicotine dependence, other tobacco product, uncomplicated; Z79.899 Other long term (current) drug therapy
CPT/HCPCS: 80053; 80307; 81001; 82077; 85025; 93005; 99284

== ENCOUNTER 2025-08-17 19:58 | Emergency (ER) | payer MEDICAID, SELFPAY ==
[2025-08-17 20:00] VITALS: BP 131/98; PULSE 120; RESP 18; TEMP 36.4; O2SAT 98; BMI 34.4
--- NOTE | 2025-08-17 20:37 | CM.ED ---
Social work Patient presented to [facility] ED prior to SW shift ending. SW read Crisis assessment from 06/27/25 and saw patient was involved in AOT. KAYLEE called Crisis (ph: [phone]) and spoke with Anastacio. Anastacio verified that patient was indeed an AOT patient and Anastacio stated ability to assess at [facility] within a half hour. KAYLEE updated channel process plant operator Yazmin and [place] Johnna. No further needs identified at this time. Nasima Avendaño, POLYGRAPH OPERATOR, TOP CASE ASSEMBLER
[2025-08-17 20:56] LABS: Hematocrit 45.5 % (40-54); Hemoglobin 15.2 g/dL (13.0-16.5); Immature Granulocytes Count 0.030 X10^3/uL (0.0-0.0); Mean Corp Hgb Conc 33.4 g/dL (32-36); Mean Corpuscular Volume 91.7 fL (80-94); Mean Platelet Vol. 11.1 fl (6.2-12.0); NRBC Flagged by Analyzer 0 % (0-5); Platelet Count 255 K/mm3 (150-450); RBC Distribution Width CV 13.2 % (11.6-14.6); RBC Distribution Width SD 44.5 fl (35.1-43.9); Red Blood Count 4.96 M/mm3 (4.6-6.2); White Blood Count 8.4 K/mm3 (4.4-11.0)
[2025-08-17 21:16] VITALS: BP 132/90; PULSE 102; RESP 18; O2SAT 97
[2025-08-17 21:18] LABS: Barbiturate Urine NEGATIVE (< 200 ng/mL); Benzodiazepine Urine NEGATIVE (< 200 ng/mL); PCP Urine NEGATIVE (< 25 ng/mL); THC Urine NEGATIVE (< 50 ng/mL)
[2025-08-17 21:20] LABS: Alcohol, Blood (Medical)-Serum < 10.1 mg/dL (<=10.0)
[2025-08-17 21:22] LABS: Anion Gap 11 (5-15); BUN 7 mg/dL (4-19); BUN/Creat Ratio 7.1 RATIO (10-20); Calcium,Total 9.0 mg/dL (7.6-11.0); Carbon Dioxide 24.9 mmol/L (21.0-32.0); Chloride 102 mmol/L (98-108); Estimated Creatinine Clearance 122.42 ml/min (50-250); Glucose 110 mg/dL (70-99); Potassium 3.8 mmol/L (3.3-5.1)
[2025-08-17] MEDS: Ziprasidone IM 20 MG/ML VIAL IM (21:45)
--- NOTE | 2025-08-17 22:07 | CM.ED ---
Social work SW heard yelling down the hallway coming from patient's room. Patient was reportedly attempting to leave and patient was heard cursing. Patient was observed pacing room, sitting on bed, and attempting to walk from the room. Patient made statements of having voices telling patient to kill self and leave [facility] ED. [place] PD eventually helped to restrain patient along with nursing and [facility] Security. SW called Crisis (ph: [phone]) to inform Crisis of events; mimeographer Leann was told. Nasima Avendaño, BOILER TESTER, BREAKFAST HOSTESS
--- NOTE | 2025-08-17 22:08 | ED.RN ---
Pt exhibiting behaviors of agitation, yelling at staff, attempting to leave room, security at bedside and PD called. PD attempted to de-escalate pt, unsuccessful. Pt pacing in room then attempted to push past PD officers to leave.
[2025-08-17 22:12] VITALS: BP 146/95; PULSE 109; RESP 24; O2SAT 96
[2025-08-17 23:05] VITALS: BP 116/73; PULSE 100; RESP 29; O2SAT 95
[2025-08-18 00:08] VITALS: BP 130/92; PULSE 80; RESP 29; O2SAT 96
[2025-08-18 00:42] VITALS: BP 118/77; PULSE 89; RESP 25; TEMP 35.9; O2SAT 94
--- NOTE | 2025-08-18 00:48 | EX.ED.VIS.PS ---
HPI HPI - Psych History of Present Illness Chief Complaint: Suicidal Informant: patient Onset/Context/Timing Onset: Today Context: Gradual Onset Timing: Continuous Worsened by: - (Nothing) Relieved by: Nothing Narrative Narrative: Patient presents with auditory hallucinations and suicidal ideations that became worse today. Patient states he is hearing voices that are telling him to hurt himself. Patient states the voices are telling him to stab himself and shoot himself with a gun. Patient also admits to some visual hallucinations. Patient also admits to some paranoid ideations. Patient denies any changes in eating or sleeping habits. Patient denies any fevers or chills. Patient denies any chest pain or palpitations. Patient denies any shortness of breath or cough. PFSH PFSH Medical History Dextromethorphan use disorder, moderate, in early remission Anxiety disorder, unspecified Substance use disorder Bipolar disorder, unspecified Major depressive disorder, recurrent, moderate Panic disorder Panic attacks Back pain Limb weakness Arthritis Home Medications ?Medication ?Instructions ?Recorded ?Last Taken ?Type NK 08/17/25 Unknown History Allergy/AdvReac Type Severity Reaction Status Date / Time No Known Allergies Allergy Verified 08/17/25 20:00 Family History Other Anxiety Depression Surgical History H/O eye surgery [employer] teeth removed Social History household members: none Smoking Status: Current every day smoker tobacco type: e-cigarettes alcohol intake: never substance use type: former substance user ROS ROS ED Constitutional Constitutional ED: Denies chills or fever(s) Eyes Eyes: Denies blurry vision or change in vision ENT ENT ED: Denies rhinorrhea or sore throat Cardiovascular Cardiovascular: Denies chest pain or palpitations Respiratory/Chest Respiratory/Chest: Denies cough or dyspnea Gastrointestinal Gastrointestinal: Denies nausea or vomiting Genitourinary Genitourinary ED: Denies dysuria or hematuria Musculoskeletal Musculoskeletal: Denies back pain or neck pain Integumentary Denies abscess or rash Neurologic Neurologic: Denies headache(s) or weakness Psychiatric Psychiatric: Reports suicidal ideation and suicidal thoughts Allergic/Immunologic Allergic/Immunologic ED: Denies mouth swelling or urticaria EXAM Physical Exam Const Vital Signs: 08/17/25 20:00 08/17/25 21:16 08/17/25 22:12 Temperature 97.5 F L Temperature Source Temporal Pulse Rate 120 H 102 H 109 H Respiratory Rate 18 18 24 H Blood Pressure 131/98 H 132/90 H 146/95 H Blood Pressure Mean 109 104 112 Pulse Ox 98 97 96 Oxygen Delivery Method Room Air Room Air 08/17/25 23:05 08/18/25 00:08 08/18/25 00:42 Temperature 96.6 F L Temperature Source Pulse Rate 100 80 89 Respiratory Rate 29 H 29 H 25 H Blood Pressure 116/73 130/92 H 118/77 Blood Pressure Mean 87 104 90 Pulse Ox 95 96 94 Oxygen Delivery Method Positive well nourished and well developed General Appearance ED: well developed, irritable and NAD HEENT Reports moist mucous membranes normocephalic and atraumatic Neck supple and no JVD Resp normal respiratory effort and clear to auscultation bilaterally Cardio Rate: regular rate Rhythm: regular rhythm GI non-tender and non-distended Palpation: soft Back/Spine no CVA tenderness Extremity normal to inspection General Extremety ED: Negative for edema or tenderness General Extremity: Negative for edema Neuro oriented x3, CN's II-XII intact bilaterally and no sensory deficits noted [place] Coma Scale: document GCS findings Spontaneous Obeys Commands Oriented 15 Sensorium / Orientation: alert Motor Exam: strength 5/5 throughout Psych Appearance: disheveled Attitude: agitated and aggressive Activity / Motor Behavior: restless and avoids eye contact Speech: pressured Mood & Affect: anxious, irritable and labile affect Thought Content: suicidality, delusion(s) Delusional Thought Content Details: Positive for paranoid and hallucination(s) Positive for auditory and visual Insight: poor Judgement: poor MDM MDM MDM Narrative Medical decision making narrative: Medical screening labs will be obtained. CBC will be obtained to assess for leukocytosis and anemia. Basic metabolic profile will be obtained to assess for electrolyte abnormality and renal function. Serum alcohol level will be obtained to assess for alcohol intoxication. Urine drug screen will be obtained to assess for substance abuse. Lab Data Attestation: I reviewed the patient's lab results. Lab results narrative: CBC was reviewed and was within normal limits. Basic metabolic profile was reviewed and was within normal limits. Serum alcohol level was reviewed and was less than 10.1. Urine drug screen was reviewed and was negative. Labs: Laboratory Results - last 24 hr 08/17/25 20:30 WBC 8.4 RBC 4.96 Hgb 15.2 Hct 45.5 MCV 91.7 MCH 30.6 MCHC 33.4 RDW Std Deviation 44.5 H RDW Coeff of Aristeo 13.2 Plt Count 255 MPV 11.1 Immature Gran % (Auto) 0.400 Neut % (Auto) 71.0 H Lymph % (Auto) 20.4 [place] % (Auto) 5.8 Eos % (Auto) 1.7 Baso % (Auto) 0.7 Absolute Neuts (auto) 6.0 Absolute Lymphs (auto) 1.71 Nucleated RBC % 0 Sodium 138 Potassium 3.8 Chloride 102 Carbon Dioxide 24.9 Anion Gap 11 BUN 7 Creatinine 1.04 Estim Creat Clear Calc 122.42 Est GFR (MDRD) Non-Af 93 BUN/Creatinine Ratio 7.1 L Glucose 110 H Calcium 9.0 Urine Opiates Screen NEGATIVE U Buprenorphine Qual NEGATIVE Ur Oxycodone Screen NEGATIVE Urine Methadone Screen NEGATIVE Urine Fentanyl Screen NEGATIVE Ur Barbiturates Screen NEGATIVE Ur Phencyclidine Scrn NEGATIVE Ur Amphetamines Screen NEGATIVE U Benzodiazepines Scrn NEGATIVE Urine Cocaine Screen NEGATIVE U Cannabinoids Screen NEGATIVE Ethyl Alcohol < 10.1 Management Discussion w/another healthcare provider: Behavioral health Treatment and Re-Evaluation Narrative: Patient became agitated and wanted to leave. Patient became aggressive with staff. Patient was given a dose of Geodon. Patient was placed in leather restraints. Patient felt better after this. Crisis counselor was in to evaluate the patient. He felt the patient need to be placed. I am agreeable with this. Patient will be pink slipped. Patient will be placed in a psychiatric facility. Discharge Plan Triage Chief Complaint: Suicidal ED Provider: Jesus Barr Dx/Rx/DC Orders Clinical Impression: Psychosis, Suicidal ideations Prescriptions: No Action NK Primary Care Provider: Jm Ty Referrals: Jm Ty MD [Primary Care Provider, Internal Medicine] Print Language: Panamanian Disposition Disposition: Psychiatric Hospital or Unit
== END 2025-08-18 01:08 ==
PROVIDERS: Emergency Provider Emergency Medicine; PCP Internal Medicine; Visit Provider Emergency Medicine
DX: F29 Unspecified psychosis not due to a substance or known physiological condition (principal); R45.851 Suicidal ideations; F17.290 Nicotine dependence, other tobacco product, uncomplicated
CPT/HCPCS: 36415; 80048; 80307; 82077; 85025; 96372; 99284; J3486

== ENCOUNTER 2025-09-06 12:34 | Emergency (ER) | payer MEDICAID, SELFPAY ==
[2025-09-06 12:35] VITALS: BP 157/111; PULSE 121; RESP 18; TEMP 36.6; O2SAT 95; BMI 35.7
--- NOTE | 2025-09-06 13:20 | EKG12_ITS ---
Test Reason : PLACEMENT
--- NOTE | 2025-09-06 13:25 | EX.ED.VIS.PS ---
HPI HPI - Psych History of Present Illness Chief Complaint: Mental Health Narrative Narrative: Patient is a 40-year-old male presenting to the emergency department for auditory hallucinations and psychosis. Patient has a past medical history of substance use disorder, major depressive disorder, generalized anxiety. Patient states that he frequently gets auditory hallucinations but they have worsened over the past few days. States that they are telling him to do very bad things. Will not specify beyond this. He states he did take cough syrup and gabapentin prior to arrival. He will not specify how much he took of either. Changes answers to different staff members. He does have cuts on his arm that he stated he cut earlier today in an attempt to harm himself. Denies any physical complaints. [facility] Medical History Dextromethorphan use disorder, moderate, in early remission Anxiety disorder, unspecified Substance use disorder Bipolar disorder, unspecified Major depressive disorder, recurrent, moderate Panic disorder Panic attacks Back pain Limb weakness Arthritis Home Medications ?Medication ?Instructions ?Recorded ?Last Taken ?Type NK 08/17/25 Unknown History Allergy/AdvReac Type Severity Reaction Status Date / Time No Known Allergies Allergy Verified 09/06/25 12:35 Family History Other Anxiety Depression Surgical History H/O eye surgery [place] teeth removed Social History household members: none Smoking Status: Current every day smoker tobacco type: e-cigarettes alcohol intake: never substance use type: former substance user ROS ROS ED ROS Narrative See HPI EXAM Physical Exam Narrative Exam Narrative: Vital signs: Reviewed General: Alert and oriented. No acute distress. HEENT: Head is normocephalic and atraumatic, sinuses nontender, pupils equal round and reactive. Nares are patent. Oropharynx and throat exams normal. Neck: Supple without lymphadenopathy nontender Cardiovascular: Regular rate and rhythm, no murmurs. No rubs or gallops. Normal S1 and S2 Respiratory: Clear to auscultation bilaterally. No wheezes, rales, rhonchi Abdominal: Soft and nontender. Normal bowel sounds. No guarding or rebound. Nonsurgical abdomen Extremities: No tenderness. No bruising. Normal range of motion. Normal sensation. Skin: No rash or redness. Neurological: Cranial nerves II through XII are grossly intact. Normal strength and sensation. Normal cerebellar function The rest of the physical exam is unremarkable Const Vital Signs: 09/06/25 12:35 09/06/25 13:34 Temperature 97.9 F Temperature Source Temporal Pulse Rate 121 H 96 Respiratory Rate 18 18 Blood Pressure 157/111 H 152/105 H Blood Pressure Mean 126 120 Pulse Ox 95 97 Oxygen Delivery Method Room Air Positive unkempt General Appearance ED: unkempt Neuro oriented x3 Psych cooperative and speech normal Appearance: grossly normal and unkempt Attitude: calm, evasive and guarded Activity / Motor Behavior: psychomotor slowing and avoids eye contact Speech: delayed Mood & Affect: depressed and apathetic Thought Content: suicidality, No homicidality and hallucination(s) MDM MDM MDM Narrative Medical decision making narrative: Patient is a 40-year-old male presenting to the emergency department for auditory hallucinations. Patient was seen and examined. Vitals are stable. Patient resting in bed comfortably no acute distress. Patient told me that he took a few gabapentin. Denies taking a whole bottle. He is very evasive with his answers. He is alert and oriented. He denies ingestion of anything else other than a dose of cough syrup. Will order for coingestion labs to make sure nothing else was ingested in excess given patients history is poor and he is not forthcoming with information. EKG shows sinus tachycardia at a rate of 114. No ischemic changes. No dysrhythmia. CBC with mild leukocytosis and a normal hemoglobin. BMP with no significant abnormalities. Salicylate and acetaminophen levels are negative. Alcohol level is negative. Urine drug screen positive for fentanyl otherwise negative. Social work/crisis was consulted for evaluation of the patient given his auditory hallucinations and psychosis along with suicidal ideation. They recommended placement. Patient was pink slipped by myself. I think he is a danger to himself and others at this time given his evidence of self-harm to his forearms as well as auditory hallucinations that are telling him to do bad things. Patient was agreeable with taking PO zyprexa here. Clinical impression: Auditory hallucinations Self-harm History & Record Review Discussion w/independent historian: Patient Lab Data Attestation: I reviewed the patient's lab results. Labs: Laboratory Results - last 24 hr 09/06/25 09/06/25 12:59 14:49 WBC 9.7 RBC 4.89 Hgb 15.1 Hct 45.1 MCV 92.2 MCH 30.9 MCHC 33.5 RDW Std Deviation 45.1 H RDW Coeff of Aristeo 13.2 Plt Count 260 MPV 10.7 Immature Gran % (Auto) 0.700 Neut % (Auto) 71.1 H Lymph % (Auto) 20.4 [place] % (Auto) 6.5 Eos % (Auto) 0.8 Baso % (Auto) 0.5 Absolute Neuts (auto) 6.9 Absolute Lymphs (auto) 1.97 Nucleated RBC % 0 Sodium 135 Potassium 3.8 Chloride 100 Carbon Dioxide 24.5 Anion Gap 11 BUN 5 Creatinine 1.09 Estim Creat Clear Calc 119.07 Est GFR (MDRD) Non-Af 87 BUN/Creatinine Ratio 4.7 L Glucose 90 Calcium 9.0 Salicylates < 0.5 L Urine Opiates Screen NEGATIVE U Buprenorphine Qual NEGATIVE Ur Oxycodone Screen NEGATIVE Urine Methadone Screen NEGATIVE Urine Fentanyl Screen PRESUMPTIVE POSITIVE Acetaminophen < 5.0 L Ur Barbiturates Screen NEGATIVE Ur Phencyclidine Scrn NEGATIVE Ur Amphetamines Screen NEGATIVE U Benzodiazepines Scrn NEGATIVE Urine Cocaine Screen NEGATIVE U Cannabinoids Screen NEGATIVE Ethyl Alcohol < 10.1 Discharge Plan Triage Chief Complaint: Mental Health ED Provider: Liberty Flanagan Dx/Rx/DC Orders Prescriptions: No Action NK Primary Care Provider: Jm Ty Referrals: Jm Ty MD [Primary Care Provider, Internal Medicine] Print Language: Armenian
[2025-09-06 13:34] VITALS: BP 152/105; PULSE 96; RESP 18; O2SAT 97
[2025-09-06 13:37] LABS: Hematocrit 45.1 % (40-54); Hemoglobin 15.1 g/dL (13.0-16.5); Immature Granulocytes Count 0.070 X10^3/uL (0.0-0.0); Mean Corp Hgb Conc 33.5 g/dL (32-36); Mean Corpuscular Volume 92.2 fL (80-94); Mean Platelet Vol. 10.7 fl (6.2-12.0); NRBC Flagged by Analyzer 0 % (0-5); Platelet Count 260 K/mm3 (150-450); RBC Distribution Width CV 13.2 % (11.6-14.6); RBC Distribution Width SD 45.1 fl (35.1-43.9); Red Blood Count 4.89 M/mm3 (4.6-6.2); White Blood Count 9.7 K/mm3 (4.4-11.0)
--- NOTE | 2025-09-06 13:48 | ED.RN ---
when pt asked about his home meds pt states i dont know what i take. pt also states that he is unable to recall the med even if they are named.
[2025-09-06 13:57] LABS: Acetaminophen (Tylenol) Level < 5.0 ug/mL (8.0-19.0); Alcohol, Blood (Medical)-Serum < 10.1 mg/dL (<=10.0); Salicylate < 0.5 mg/dL (2.8-20.0)
[2025-09-06 13:58] LABS: Anion Gap 11 (5-15); BUN 5 mg/dL (4-19); BUN/Creat Ratio 4.7 RATIO (10-20); Calcium,Total 9.0 mg/dL (7.6-11.0); Carbon Dioxide 24.5 mmol/L (21.0-32.0); Chloride 100 mmol/L (98-108); Estimated Creatinine Clearance 119.07 ml/min (50-250); Glucose 90 mg/dL (70-99); Potassium 3.8 mmol/L (3.3-5.1)
[2025-09-06 15:40] LABS: Barbiturate Urine NEGATIVE (< 200 ng/mL); Benzodiazepine Urine NEGATIVE (< 200 ng/mL); PCP Urine NEGATIVE (< 25 ng/mL); THC Urine NEGATIVE (< 50 ng/mL)
[2025-09-06] MEDS: OLANZapine 5 MG/TAB TAB.RAPDIS PO (15:46)
--- NOTE | 2025-09-06 19:13 | PCA ---
pt accepted at [facility]- received call from Liza. Accepted by Dr. Dash, NtN # [phone] opt. 1, unit will be given upon arrival, requested pink slip made out to their facility is sent with pt and to call with ETA.
--- NOTE | 2025-09-06 19:23 | NURSING ---
Mom called in and was notified of transfer location and ETA for transport.
[2025-09-06 19:48] VITALS: BP 131/94; PULSE 90; RESP 16; TEMP 36.2; O2SAT 92
--- NOTE | 2025-09-06 19:48 | NURSING ---
Report called to facility and given to Abner.
--- NOTE | 2025-09-06 21:44 | NURSING ---
Report given to transport, personal belongings given to transport.
== END 2025-09-06 21:47 ==
PROVIDERS: Emergency Provider Student in an Organized Health Care Education/Training Program; PCP Internal Medicine; Visit Provider Student in an Organized Health Care Education/Training Program
DX: R44.0 Auditory hallucinations (principal); R45.88 Nonsuicidal self-harm; F17.290 Nicotine dependence, other tobacco product, uncomplicated
CPT/HCPCS: 80048; 80143; 80179; 80307; 82077; 85025; 93005; 99284